=== PATIENT | female | born 1950 | race Caucasian/White ===

== ENCOUNTER → 2021-08-16 09:57 | Outpatient (BNVA) | payer OTHER, SELFPAY | PROVIDERS: Visit Provider Internal Medicine Cardiovascular Disease | DX: I10 Essential (primary) hypertension (principal); R00.0 Tachycardia, unspecified; F41.9 Anxiety disorder, unspecified | CPT/HCPCS: 93005 ==

== ENCOUNTER 2021-09-17 11:04 | Outpatient (REF) | payer OTHER, SELFPAY ==
[2021-09-17 11:21] LABS: MANUAL DIFF FLAG NO
[2021-09-17 11:57] LABS: Basophils Absolute Auto 0.1 X10*3/uL (0.0-0.2); Basophils Percent Auto 0.7 % (0-2); Eosinophils Percent Auto 0.2 % (0-4); Hematocrit 45.3 % (37.0-47.0); Hemoglobin 14.8 g/dl (12.0-16.0); Imm Gran Abs Auto 0.03 X10*3/uL (0.00-0.03); Imm Gran Pct Auto 0.4 % (0.0-0.4); Lymphocytes Absolute Auto 1.4 X10*3/uL (1.2-4.9); Lymphocytes Percent Auto 17.2 % (20-40); Mean Corpuscular HGB Conc 32.7 g/dl (31.0-35.0); Mean Corpuscular Hemoglobin 31.8 pg (27.0-33.0); Mean Corpuscular Volume 97.2 fL (80.0-98.0); Monocytes Absolute Auto 0.5 X10*3/uL (0.1-1.2); Monocytes Percent Auto 5.8 % (2-11); Neutrophils Absolute Auto 6.2 x10*3/uL (2.0-8.3); Neutrophils Percent Auto 75.7 % (45-73); Platelet Count 283 X10*3/uL (160-400); Red Blood Count 4.66 X10*6/uL (4.20-5.50); Red Cell Distribution Width 12.9 % (11.0-16.0); White Blood Count 8.2 X10*3/uL (4.8-10.8)
[2021-09-17 12:38] LABS: Erythrocyte Sedimentation Rate 14 MM/HR (0-20)
[2021-09-19 17:01] LABS: IgA 227 mg/dL (70-320); IgG 952 mg/dL (600-1540); IgM 65 mg/dL (50-300)
[2021-09-24 11:16] LABS: Asperg fumigatus Precip Abs NEGATIVE (NEGATIVE); Micropoly faeni Abs NEGATIVE (NEGATIVE); Pigeon serum Abs NEGATIVE (NEGATIVE); Saccharo pora viridis Abs NEGATIVE (NEGATIVE); Thermo candidus Abs NEGATIVE (NEGATIVE); Thermoa vulgaris #1 NEGATIVE (NEGATIVE)
== END 2021-09-17 11:05 | disposition home or self-care (01) ==
LOC: HO.LAB 11:04
PROVIDERS: PCP Internal Medicine; Visit Provider Hospitalist
DX: J47.9 Bronchiectasis, uncomplicated (principal); R91.1 Solitary pulmonary nodule; R91.8 Other nonspecific abnormal finding of lung field
CPT/HCPCS: 36415; 82784; 82785; 85025; 85652; 86003; 86331; 86606; 86609

== ENCOUNTER 2022-01-04 12:50 | Outpatient (REF) | payer OTHER, SELFPAY ==
--- NOTE | ~2022-01-04 | CT_ITS ---
EXAMINATION: CT CHEST WITHOUT CONTRAST CLINICAL INFORMATION: Solitary pulmonary nodule. COMPARISON: None TECHNIQUE: Multidetector volumetric CT imaging of the chest was done. Axial MIP volume rendering provided. Sagittal and coronal reformatted images were obtained. This CT examination was performed using dose optimization techniques as appropriate, variously including the following: *Automated exposure control *Adjustment of mA and/or kV according to patient size (this includes techniques or standardized protocols for targeted exams where dose is matched to indication/reason for exam; i.e. extremities or head) *Use of iterative reconstruction technique DLP: 211 mGy-cm FINDINGS: LUNGS: The left hemidiaphragm is elevated. A tiny calcified granuloma is present right upper lobe (8:157). No suspicious lung masses are seen. There are some minimal areas of mucosal impaction within bronchi (for example 8:221). Left basilar scarring/atelectasis is present. MEDIASTINUM: The mediastinum is unremarkable. CORONARY ARTERY CALCIFICATION: Minimal coronary calcification is present. PLEURA: There is no pleural effusion. No pleural mass or thickening. AXILLA: No lymphadenopathy. UPPER ABDOMEN: Prior gastric surgery/gastric bypass with gastrojejunostomy. Status post-cholecystectomy. OSSEOUS STRUCTURES: Biconvex thoracolumbar scoliosis with degenerative changes. CT/CT chest wo IV con IMPRESSION: No suspicious lung masses are seen. There is a tiny calcified granuloma present. Other incidental findings, as described above. Fleischner guidelines were followed.
== END 2022-01-04 12:51 | disposition home or self-care (01) ==
LOC: HO.CT 12:50
PROVIDERS: Visit Provider Hospitalist
DX: C50.919 Malignant neoplasm of unspecified site of unspecified female breast (principal); R91.1 Solitary pulmonary nodule
CPT/HCPCS: 71250

== ENCOUNTER → 2022-01-23 09:35 | Outpatient (BNVA) | payer OTHER, SELFPAY | PROVIDERS: PCP Internal Medicine; Visit Provider Internal Medicine Cardiovascular Disease | DX: R00.0 Tachycardia, unspecified (principal); I10 Essential (primary) hypertension; R06.02 Shortness of breath; C50.911 Malignant neoplasm of unspecified site of right female breast; Z92.3 Personal history of irradiation; Z79.890 Hormone replacement therapy | CPT/HCPCS: 93005 ==

== ENCOUNTER → 2022-02-05 07:31 | Outpatient (REF) | payer OTHER, SELFPAY ==
--- NOTE | 2022-02-05 07:35 | HM_ITS ---
Conclusion: 1. Patient was monitored for total period of 3 days 2. Baseline was normal sinus rhythm with average heart rate of 94 beats per minute 3. No significant pauses or bradycardia noted 4. Total of 821 PVCs accounting for 0.21% total beats account for occasional PVCs 5. Patient reported events correlated with sinus rhythm MTDD
== END ==
LOC: HO.CARD 07:31
PROVIDERS: Visit Provider Internal Medicine Cardiovascular Disease
DX: R00.0 Tachycardia, unspecified (principal)
CPT/HCPCS: 93242

== ENCOUNTER → 2022-07-05 13:31 | Outpatient (BNVA) | payer OTHER, SELFPAY | PROVIDERS: PCP Hospitalist; Referring Provider Internal Medicine; Visit Provider Nurse Practitioner Family | DX: Z13.89 Encounter for screening for other disorder (principal) ==

== ENCOUNTER → 2022-07-24 10:43 | Outpatient (REF) | payer OTHER, SELFPAY ==
--- NOTE | 2022-07-24 10:46 | CA_ITS ---
Transthoracic Echocardiogram Patient (Last, First, Middle): Chela Garza, Gender: Female Date of : 1950 Age: 71 Procedure Date: 07/24/2022 Procedure Type: Transthoracic Echocardiogram Location: OP Height: 154.94 cm Weight: 93.9 kg BSA: 1.92 m2 Heart Rate: 93 bpm BP: 165 / 80 mmHg Rating Officer: KATI Referring MD: Candi Rock CAFE SITE ATTENDANT-C Symptoms: R00.0 - Tachycardia, unspecified Study Quality: Technically Difficult Conclusions: - The left ventricular systolic function is normal. The calculated ejection fraction is 69% by biplane method. - No obvious valvular pathology seen on this study. Findings Procedure Information Contrast agent, definity, is being given per protocol without apparent complications. Left Ventricle Normal left ventricular cavity size. The left ventricular systolic function is normal. The calculated ejection fraction is 69% by biplane method. There is no evidence of regional wall motion abnormalities. Diastolic function is normal for age. There is mild septal asymmetric hypertrophy. Right Ventricle Normal right ventricular cavity size and systolic function. Atria Both atria are normal in size. Aortic Valve The aortic valve was not well visualized. There is mild calcification of the aortic valve. There is no aortic valve stenosis. There is no aortic valve regurgitation. Mitral Valve The mitral valve was not well visualized. There is mild mitral annular calcification. There is no mitral valve regurgitation. There is no mitral valve stenosis. Pulmonic Valve The pulmonic valve is likely normal. Tricuspid Valve There is trace tricuspid valve regurgitation. There is no evidence of pulmonary hypertension. Great Vessels The asc aorta is normal in size. Venous The inferior vena cava is normal in size and collapses less than 50% with inspiration. Pericardium/Pleural There is no evidence of pericardial effusion. Prior Study Comparison No prior study available for comparison. Recommendations, Care & Conclusions No obvious valvular pathology seen on this study. Measurements 2D Linear Measurements IVSd: 1.13 0.6-0.9/0.6-1.0 cm LVIDd: 3.62 3.9-5.3/4.2-5.9 cm LVIDd Index: 1.89 2.4-3.2/2.2-3.1 cm/m2 LVIDs: 3.02 2.0-3.6 cm LVPWd: 0.87 0.7-1.1 cm LA Diam: 2.20 2.7-3.8/3.0-4.0 cm LAIDs Index: 1.15 1.5-2.3 cm/m2 LV Mass: 134.97 67-162/88-224 g LV Mass Index: 70.30 43-95/49-115 g/m2 LVOT Diam: 1.90 3.0+(-)1.3 cm 2D Systolic Function EF 4C: 65.60 >55% EF 2C: 71.50 >55% EF BiP: 69.40 >55% Mitral Valve MV Pk E: 0.79 MV PK A: 1.02 MV Decel Time: 218.00 E/A: 0.80 E'Lateral: 8.81 E'Medial: 6.85 E/E' Med: 11.50 E/E' Lat: 8.90 PHT: 64.00 MVA PHT: 3.44 Decel Clare: 3.61 Aortic Valve AoV Pk Troy: 1.51 AoV Pk Grad: 9.00 LVOT LVOT Pk Troy: 0.89 LVOT Mn Troy: 0.63 LVOT VTI: 0.18 LVOT Pk Grad: 3.00 LVOT Mn Grad: 2.00 LVOT Diam: 1.90 LVOT Area: 2.84 Diastolic Function MV Pk E: 0.79 MV Pk A: 1.02 E/A: 0.80 E'Medial: 6.85 E/E' Med: 11.50 E' Laterial: 8.81 E/E' Lat: 8.90 Right Ventricle TAPSE (mm): 22.60 TVS' Troy: 13.10 Tricuspid Valve TR Pk Troy: 1.47 TR Pk Grad: 9.00 RA Press: 8.00 RVSP: 17.00 Great Vessels Aorta Sinus of Valsalva: 3.40 2.0-3.5 cm Ao Asc: 2.60 2.1-3.4 cm Pulmonary Valve PV Pk Troy: 0.95 Peak PV Grad: 4.00 Updated in Other Vendor System with Status of Final Haroon Bernstein MD electronically signed on 07/24/2022 4:49:21 PM with status of Final
== END ==
LOC: HO.CARD 10:43
PROVIDERS: PCP Hospitalist; Visit Provider Nurse Practitioner Family
DX: R00.0 Tachycardia, unspecified (principal); I10 Essential (primary) hypertension
CPT/HCPCS: 93306; Q9957

== ENCOUNTER 2022-10-07 13:00 | Outpatient (AMB) | payer OTHER, SELFPAY ==
[2022-10-07 13:03] VITALS: BP 160/80; PULSE 104; BMI 39.6
--- NOTE | 2022-10-07 13:03 | A.OFFVIS_ITS ---
Intake Vital Signs 10/07/22 13:03 Height 5 ft 1 in Weight 209 lb 7.026 oz BMI 39.6 BP 160/80 H Blood Pressure Location Lt brachial Position Sitting Pulse 104 H Intake Visit Reasons: 3-4 month follow up after echo Intake Note: 3- 4 month f/u after echo Motor Mechanic Required: No Allergies adhesive Allergy (Severe, Verified 10/07/22 13:12) Rash nystatin Allergy (Intermediate, Verified 10/07/22 13:12) Hives sulfide Allergy (Intermediate, Uncoded 06/26/22 10:23) Hives Medication List - Last Reconciled 10/07/22 by Candi Rock, HUMANITIES COORDINATOR-C cholecalciferol (vitamin D3) 250 mcg PO DAILY cyanocobalamin (vitamin B-12) 1,000 mcg PO DAILY diltiazem HCl 300 mg PO DAILY eplerenone 25 mg PO BID ibuprofen 600 mg PO Q8H PRN lactobacillus combination no.9 (Adult 50 Plus Probiotic) 4,000 mmu cells PO DAILY letrozole 2.5 mg PO DAILY venlafaxine ER 75 mg PO DAILY HPI 3-4 month follow up after echo HPI Details Chela is 71-year-old female past medical history of hypertension, sinus tachycardia who presents for follow-up after recent medication change and echocardiogram.. Today she reports that she has been feeling very well since her last visit. She noticed an improvement in her heart rate with the increased dose of diltiazem. She was able to wean off the clonidine. She tells me that her home blood pressures are normal range. She uses a what device that checks her blood pressure. She is no longer having heart rates up into the 140s. She denies issues with heart palpitations, no chest discomfort, shortness of breath. No PND, orthopnea, edema. No dizziness, presyncope, syncope, falls. She has some issues with chronic low back pain and had 1 steroid injection recently and will be having another in 2 weeks. is present. Has upcoming visit with her PCP. COUNTS INCLUDE 234 BEDS AT THE [facility] Medical History Breast cancer Pulmonary nodule Surgical History History of knee replacement procedure of left knee History of knee replacement procedure of right knee S/P lumpectomy, right breast Family History Father CVA (cerebral vascular accident) HTN (hypertension) Gout Scoliosis Mother CVA (cerebral vascular accident) Cancer Colon cancer CHF (congestive heart failure) COPD (chronic obstructive pulmonary disease) HTN (hypertension) Migraine Anxiety Depression Son Carotid artery aneurysm SMA (spinal muscular atrophy) Anterior horn cell disease Social History Household Members: Spouse Housing: Apartment Alcohol intake: current Alcohol intake frequency: a few times a week Alcohol type: wine Patient Tobacco Use Status: Never used Tobacco Review of Systems Const All systems reviewed & are unremarkable except as noted in HPI and below ENT Reports dizziness Card Denies chest pain, Denies chest pain at rest, Denies chest pain with activity, Denies rapid heart rate, Denies pedal edema, Denies edema, Denies leg edema, Denies lightheadedness, Denies palpitations, Denies dyspnea, Denies dyspnea on exertion and Denies orthopnea Resp Denies cough, Denies dyspnea and Denies dyspnea on exertion GI Denies hematochezia and Denies change in stool character Musc Denies abnormal gait, Reports limited range of motion, Reports muscle cramps, Denies muscle weakness, Denies numbness, Denies radiating pain into limb, Denies stiffness and Denies tingling Neuro Denies abnormal gait, Reports dizziness, Denies numbness and Denies tingling Endo Denies palpitations Physical Exam Vital Signs: Last Vital Signs Pulse 104 H 10/07/22 13:03 BP 160/80 H 10/07/22 13:03 BMI result Body Mass Index 39.6 Const General: cooperative, healthy appearing, comfortable and no acute distress Orientation/consciousness: patient oriented x3 Neck Neck: Yes normal visual inspection and Yes no JVD Resp Effort & Inspection: normal respiratory effort Auscultation: clear to auscultation bilaterally, no crackles, no rales, no rhonchi and no wheezes Cardio Jugular venous distension: no JVD Rate: tachycardic Rhythm: regular rhythm Heart sounds: S1 normal heart sound present, S2 normal heart sound present, no gallops, no murmurs and no rubs Peripheral pulses: Peripheral pulses 2+ throughout Neuro General: patient oriented x3 Extrem General: Yes normal to inspection Psych Appearance: grossly normal Mental Status: mental status grossly normal Speech and movement: Normal speech and movement present Office Procedures EKG Details: Today, read by me, sinus tachycardia, no acute ST or T-wave abnormalities, rate 104, QTC 462 millisecond [id number], Complete Assessment & Plan Assessment & Plan (1) Essential hypertension: Code(s): I10 - Essential (primary) hypertension Plan: History of hypertension. Currently treated with Diltiazem and Eplerenone. She had been on hydrochlorothiazide in the past and had issues with hypokalemia. She had been on clonidine and recently weaned off slowly. On last visit her diltiazem dose was increased to help with blood pressure and heart rate control. Overall she tells me she is feeling much better and is not having heart rates up into the 140s. Blood pressure initially elevated at 1 60/80 and was 176/96 on recheck. She tells me she checks her blood pressure at home routinely and sometimes it is high and sometimes it is normal. She will likely need alternate antihypertensive agent. No recent blood work to review on her. Will hold off on the addition of medication at present and obtain labs including CMP. Once labs available will determine best antihypertensive agent. She is agreeable to this plan. Reviewed low-salt diet, light activity as tolerated. She performs I high stress job which can contribute to elevated blood pressure readings. She is also experiencing low back discomfort and is in the process of undergoing steroid injections. Cardiology office phos visit in 6 months, sooner if needed. Will plan to have her in prior to that time for blood pressure checks. (2) Sinus tachycardia: Code(s): R00.0 - Tachycardia, unspecified Plan: History of sinus tachycardia, likely inappropriate sinus tach. Notes indicate prior echocardiogram at [facility] 02/2021 was normal. She is on diltiazem for heart rate control as well as blood pressure. Holter monitor done 02/05/2022 for 3 days showed sinus rhythm with average heart rate 94 with occasional PVCs. Echocardiogram done 07/24/2022 showed EF 69%, no regional wall motion abnormality or valve abnormality. EKG today showing sinus tach, rate 104 which she is very pleased with. Continue current diltiazem dose. Orders: Orders Comprehensive Met. Panel Today I10 - Essential (primary) hypertension Coding Level of Care Code Est Pt Level 4 (41011) Diagnoses Essential hypertension I10 Sinus tachycardia R00.0 CPT Codes EKG - CPT: 99593-[id number], Complete ([id number]) Time Spent (min) 28 Comment Chart review, documentation, interview, assessment
== END 2022-10-07 13:39 | disposition home or self-care (01) ==
PROVIDERS: Visit Provider Nurse Practitioner Family
DX: I10 Essential (primary) hypertension (principal); R00.0 Tachycardia, unspecified
CPT/HCPCS: 93010; 99214

== ENCOUNTER → 2022-10-07 13:00 | Outpatient (BNVA) | payer OTHER, SELFPAY | PROVIDERS: Visit Provider Nurse Practitioner Family | DX: I10 Essential (primary) hypertension (principal); R00.0 Tachycardia, unspecified | CPT/HCPCS: 93005 ==

== ENCOUNTER 2022-10-21 08:30 | Outpatient (REF) | payer OTHER, SELFPAY ==
[2022-10-21 09:28] LABS: Alanine Aminotransferase 18 U/L (0-31); Albumin Level 3.9 g/dL (3.5-5.0); Alkaline Phosphatase 59 U/L (39-117); Anion Gap 16 (12-20); Aspartate Amino Transferase 19 U/L (5-31); Bilirubin Total 0.6 mg/dL (0.0-1.0); Blood Urea Nitrogen 8 mg/dL (9-16); Calcium 9.7 mg/dL (8.4-10.2); Carbon Dioxide 25 mmol/L (22-29); Chloride 101 mmol/L (96-108); Estimated Glomerular Filt Rate > 60; Glucose Random 112 mg/dL (60-115); Potassium 3.8 mmol/L (3.3-5.1); Sodium 138 mmol/L (135-145); Total Protein 7.1 g/dL (6.5-8.0)
[2022-10-21 09:50] LABS: Vitamin B12 240 pg/mL (200-900)
[2022-10-25 14:54] LABS: Vitamin D 25-OH, D2 <4 ng/mL; Vitamin D 25-OH, D3 36 ng/mL; Vitamin D 25-OH, Total 36 ng/mL (30-100)
[2022-10-29 19:43] LABS: Parathyroid Hormone Related Pr 38 pg/mL (11-20)
== END 2022-10-21 08:31 | disposition home or self-care (01) ==
LOC: HO.LAB 08:30
PROVIDERS: PCP Hospitalist; Visit Provider Nurse Practitioner Family
DX: I10 Essential (primary) hypertension (principal); M85.80 Other specified disorders of bone density and structure, unspecified site; C50.919 Malignant neoplasm of unspecified site of unspecified female breast; Z98.84 Bariatric surgery status
CPT/HCPCS: 36415; 80053; 82306; 82310; 82607; 83519

== ENCOUNTER 2022-11-28 11:12 | Outpatient (REF) | payer OTHER, SELFPAY ==
[2022-11-28 12:38] LABS: Anion Gap 15 (12-20); Blood Urea Nitrogen 14 mg/dL (9-16); Calcium 9.9 mg/dL (8.4-10.2); Carbon Dioxide 27 mmol/L (22-29); Chloride 104 mmol/L (96-108); Estimated Glomerular Filt Rate > 60; Glucose Random 92 mg/dL (60-115); Potassium 4.4 mmol/L (3.3-5.1); Sodium 142 mmol/L (135-145)
== END 2022-11-28 11:13 | disposition home or self-care (01) ==
LOC: HO.LAB 11:12
PROVIDERS: PCP Hospitalist; Visit Provider Nurse Practitioner Family
DX: I10 Essential (primary) hypertension (principal)
CPT/HCPCS: 36415; 80048

== ENCOUNTER 2022-12-18 09:47 | Outpatient (REF) | payer OTHER, SELFPAY ==
--- NOTE | ~2022-12-18 | CT_ITS ---
EXAMINATION: CT CHEST WITHOUT CONTRAST CLINICAL INFORMATION: Solitary pulmonary nodule. COMPARISON: CT chest dated 12/27/2021. TECHNIQUE: Multidetector volumetric CT imaging of the chest was done. Axial MIP volume rendering provided. Sagittal and coronal reformatted images were obtained. This CT examination was performed using dose optimization techniques as appropriate, variously including the following: *Automated exposure control *Adjustment of mA and/or kV according to patient size (this includes techniques or standardized protocols for targeted exams where dose is matched to indication/reason for exam; i.e. extremities or head) *Use of iterative reconstruction technique DLP: 196 mGy-cm FINDINGS: RESIDENTIAL BUILDING INSPECTOR: There are scoliotic changes. There is an undulating appearance of the diaphragms. LUNGS: At the posterior right apex (6:122), a benign, calcified pleural-based granuloma is seen. Within the posterior segment of the right upper lobe (6:139), a small benign, calcified granuloma is seen. Within the posterior basal segment of the left lower lobe (6:270), a 4 mm noncalcified nodule is seen. There is an azygos fissure. There are bibasilar foci of minor scar/subsegmental atelectasis without associated focal airway obstruction. No generalized increase is seen in peripheral interlobular septal markings. There is no significant bleb or bullous formation. No generalized small airway thickening is seen. The central airways appear patent. MEDIASTINUM: The mediastinum is normal. CORONARY ARTERY CALCIFICATION: None visualized on this study. PLEURA: There is no pleural effusion. No pleural mass or thickening. AXILLA: No lymphadenopathy. UPPER ABDOMEN: The adrenal glands are unremarkable. The gallbladder is surgically absent. There are gastric surgical sylwia. OSSEOUS STRUCTURES: There are marked scoliotic changes of the spine. There is multi-level thoracic degenerative disc disease, spondylosis and Schmorl's node formation. No acute or aggressive osseous finding is seen. CT/CT chest wo IV con IMPRESSION: 1. A 4 mm noncalcified nodule is seen at the posterior basal segment of the right lower lobe. There are further small benign, calcified right upper lobe granulomas. Nodules are all stable from 01/04/2022. According to the UPDATED 2017 Fleischner Society recommendations, the advised follow-up imaging for solid nodules < 6 mm is: LOW RISK PATIENT: No routine follow-up. HIGH RISK PATIENT: Optional CT at 12 months. 2. There are bibasilar foci of minor scar/subsegmental atelectasis, without associated focal airway obstruction. 3. No thoracic lymphadenopathy or pleural effusion is seen. 4. There are marked scoliotic changes. Fleischner guidelines were followed.
== END 2022-12-18 09:48 | disposition home or self-care (01) ==
LOC: HO.CT 09:47
PROVIDERS: PCP Hospitalist; Visit Provider Hospitalist
DX: R91.1 Solitary pulmonary nodule (principal)
CPT/HCPCS: 71250

== ENCOUNTER 2023-01-09 15:24 | Outpatient (AMB) | payer OTHER, SELFPAY ==
[2023-01-09 15:27] VITALS: PULSE 93; O2SAT 94; BMI 39.1
--- NOTE | 2023-01-09 15:27 | A.OFFVIS_ITS ---
Intake Vital Signs 01/09/23 15:27 Height 5 ft 1 in Weight 207 lb BMI 39.1 Pulse 93 Pulse Source Pulse Oximeter Pulse Oximetry (%) 94 Oxygen Delivery Method Room Air Intake Visit Reasons: Pulmonary Nodule Associate Java Developer Required: No Allergies adhesive Allergy (Severe, Verified 01/09/23 15:28) Rash nystatin Allergy (Intermediate, Verified 01/09/23 15:28) Hives sulfide Allergy (Intermediate, Uncoded 01/09/23 15:28) Hives HPI HPI Comments History of Present Illness Details the patient is a 72-year-old woman with a known history of bronchiectasis in addition to breast cancer here for a follow-up visit. Apparently, the patient is having worsening respiratory symptoms including c ough and chest congestion. At the time she was evaluated in [place] demonstrating evidence of bronchiectasis. The patient was worked up for the bronchiectasis. Had a negative sweat test for cystic fibrosis per the patient. She was found to have home that was infested with mold. That was felt to be the contributing factor. The patient did move out of the home. She was treated with respiratory medications. Did her symptoms improve. Subsequently after that she did have some chest discomfort. She did undergo a CT scan of the chest demonstrating a pulmonary nodule. The patient did have a repeat CT scan in [place] as well back in April [address] scan of the chest demonstrating that the pulmonary nodules to present although slightly smaller based on their technique. As far as the patient's breast cancer she was diagnosed with local breast cancer of the right breast. She did undergo lumpectomy and also underwent radiation therapy. The patient was placed on hormonal therapy, letrozole. The patient has been tolerating medicine. She does follow closely with her oncologist. In view of her breast cancer and history of pulmonary nodules the patient should have a CT scan of the chest to further evaluate the pulmonary nodule. Will request that in the fall of 2021. If the patient develops any worsening symptoms prior to that she is to call the office we can look at that CT scan at an earlier time. From a respiratory status the patient does have a cough is intermittent. And currently is mild. She does have a rescue inhaler that she uses. She also has an Acapella valve that she finds very effective. She does not have a nebulizer and has not use any hypertonic saline. The patient does states that she has been doing very well from a respiratory status. But, in the spring of this year she started developing worsening cough and shortness of breath was using her respiratory medication more often. Now, she is feeling little better. We did review her last pulmonary function studies done in [place] demonstrating no obstructive nor restrictive ventilatory defects. The patient did have a slight decrease maximum voluntary ventilation which could be secondary to deconditioning. She also had a significantly low expiratory reserve volume likely foreign body habitus. Her diffusion capacity was within normal limits. 01/11/2022 the patient is here for pulmonary follow-up visit. The patient overall is doing well. Denies any sick cough or chest congestion. Fortunately have to go visit her home [place] that was affected by that her cane and does likely mold contamination. Therefore she needs to be very careful when going to that environment. In the meantime the patient did have a repeat CT scan of the chest demonstrating no significant worsening of any of the pulmonary nodules. She does have bronchiectatic changes noted. Will plan to follow-up CT scan in a year's time. Her blood work was all reassuring. She did have minimal allergies noted. Otherwise patient is without any other complaints. 01/09/2023 the patient is here for a pulmonary follow-up visit. Overall the patient has been doing well. She does complaint of dyspnea on exertion. Sometimes moderate in severity. She wishes she had a albuterol inhaler that she can use. We did talk about getting her a peak flow. I did going through the instructions on how to use it. She should use the peak flow while she is doing well and then subsequently which she has her up so she can measure her peak flow during those difficult times. And then at that point after that she can use her inhaler and then objectively measure her peak flow afterwards as well. The patient did have a CT scan of the chest that we personally reviewed. The patient has multiple calcified granulomas which are not concerning. She does have a 4 mm pulmonary nodule noncalcified on the left lung which appears to be unchanged from last year. Will go ahead and repeat the CT scan and another year to make sure there is to years of stable findings. She also has evidence of the bronchiectatic changes. She does have the Acapella valve that she can use as needed to clear secretions. At this point she does not much secretions. Will plan to repeat the CT scan next year and also perform pulmonary function studies. If her symptoms worsen though she is using her inhaler more often she can always call to get her PFTs done at an earlier time. [facility] Medical History (Updated 01/09/23 @ 23:16 by Sanket De León MD) Dyspnea Breast cancer Pulmonary nodule Surgical History History of knee replacement procedure of right knee History of knee replacement procedure of left knee S/P lumpectomy, right breast Family History Father CVA (cerebral vascular accident) HTN (hypertension) Gout Scoliosis Mother CVA (cerebral vascular accident) Cancer Colon cancer CHF (congestive heart failure) COPD (chronic obstructive pulmonary disease) HTN (hypertension) Migraine Anxiety Depression Son Carotid artery aneurysm SMA (spinal muscular atrophy) Anterior horn cell disease Social History Household Members: Spouse Housing: Apartment Alcohol intake: current Alcohol intake frequency: a few times a week Alcohol type: wine Patient Tobacco Use Status: Never used Tobacco Review of Systems Const Denies fever(s) Eyes Denies loss of vision ENT Denies dizziness and Denies hearing loss Card Denies chest pain and Reports dyspnea on exertion Resp Denies cough, Denies excessive phlegm production, Reports dyspnea on exertion and Denies wheezing GI Denies abdominal pain Denies hematuria, Denies urinary frequency and Denies dysuria Musc Denies arthralgias and Denies muscle weakness Skin/Breast Denies nail changes and Denies rash Neuro Denies Abnormal speech present, Denies dizziness, Denies loss of vision and Denies memory loss Psych Denies depression and Denies memory loss Aller/Immun Reports seasonal rhinorrhea and Denies wheezing Physical Exam Vital Signs: Last Vital Signs Pulse 93 01/09/23 15:27 Pulse Ox 94 01/09/23 15:27 Oxygen Delivery Method Room Air 01/09/23 15:27 BMI result Body Mass Index 39.1 Const General: comfortable HEENT Head: Yes normocephalic Neck Neck: Yes supple Chest Chest palpation & inspection: normal inspection of the chest Resp Effort & Inspection: normal respiratory effort Auscultation: clear to auscultation bilaterally Cardio Rate: regular rate Rhythm: regular rhythm Heart sounds: S1 normal heart sound present and S2 normal heart sound present GI Palpation (GI): Soft to palpation Skin General skin exam: no rashes or lesions noted Neuro Speech: No Abnormal speech present Extrem General: Yes no clubbing, cyanosis or edema Assessment & Plan Assessment & Plan (1) Pulmonary nodule: Code(s): R91.1 - Solitary pulmonary nodule (2) Bronchiectasis: Code(s): J47.9 - Bronchiectasis, uncomplicated Qualifiers: Bronchiectasis type: uncomplicated Qualified Code(s): J47.9 - Bronchiectasis, uncomplicated (3) Breast cancer: Code(s): C50.919 - Malignant neoplasm of unspecified site of unspecified female breast Qualifiers: Breast location: unspecified site of breast Estrogen receptor status: unspecified Laterality: right Patient sex: female Qualified Code(s): C50.911 - Malignant neoplasm of unspecified site of right female breast (4) Dyspnea: Code(s): R06.00 - Dyspnea, unspecified Qualifiers: Dyspnea type: dyspnea on exertion Qualified Code(s): R06.09 - Other forms of dyspnea Plan continue CPT with Acapella valve peak flow short-acting beta agonist as needed repeat CT scan of the chest in 12 months PFTs in 1 yr follow-up with Pulmonary in [address]: [address] chest wo IV con 364 Days R91.1 - Solitary pulmonary nodule CT chest wo IV con 364 Days R91.1 - Solitary pulmonary nodule PFT pulmonary function test 364 Days R91.1 - Solitary pulmonary nodule Coding Level of Care Code Est Pt Level 4 (10256) Diagnoses Pulmonary nodule R91.1 Bronchiectasis without complication J47.9 Bronchiectasis type: uncomplicated Malignant neoplasm of right female breast, unspecified estrogen receptor status, unspecified site of breast C50.911 Breast location: unspecified site of breast Estrogen receptor status: unspecified Laterality: right Patient sex: female Dyspnea on exertion R06.09 Dyspnea type: dyspnea on exertion Time Spent (min) 17
== END 2023-01-09 15:43 | disposition home or self-care (01) ==
LOC: HO.HPS 15:24
PROVIDERS: PCP Hospitalist; Visit Provider Hospitalist
DX: R91.1 Solitary pulmonary nodule (principal); J47.9 Bronchiectasis, uncomplicated; C50.911 Malignant neoplasm of unspecified site of right female breast; R06.09 Other forms of dyspnea
CPT/HCPCS: 99214

== ENCOUNTER → 2023-01-09 15:24 | Outpatient (BNVA) | payer OTHER, SELFPAY | PROVIDERS: PCP Hospitalist; Visit Provider Hospitalist ==

== ENCOUNTER 2023-01-29 12:49 | Outpatient (AMB) | payer OTHER, SELFPAY ==
[2023-01-29 13:03] VITALS: BP 134/74; PULSE 116; RESP 13; TEMP 36.6; O2SAT 98; BMI 39.7
--- NOTE | 2023-01-29 13:03 | MHC.PC.OV ---
Vital Signs 01/29/23 13:03 Height 5 ft 1 in Weight 210 lb BMI 39.7 BP 134/74 Blood Pressure Location Lt brachial Position Sitting Respiration 13 Pulse 116 H Pulse Source Pulse Oximeter Temp 97.8 F Temp Source Temporal Artery Scan Pulse Oximetry (%) 98 Oxygen Delivery Method Room Air Intake Visit Reasons: Trans of care, hypertension Intake Note: Patient states that shes been having some discoloration in her skin and is not sure what is causing. Patient would like referral for OBGYN due to vaginal pressure and to check vaginal floor. Patient would like a urinalysis due to not having one in over a year and would also look full panel of blood work. Patient would also like parathyroid checked. Blade Bender Furnace Tender Required: No Accompanied by: Self / Same As Patient Allergies adhesive Allergy (Severe, Verified 01/29/23 13:12) Rash nystatin Allergy (Intermediate, Verified 01/29/23 13:12) Hives sulfide Allergy (Intermediate, Uncoded 01/09/23 15:28) Hives Tobacco use date assessed: 06/26/22 Fall risk assessment: No Falls in past year Last assessed Fall Risk: 01/29/23 Dental Screening Dental Screen Date: 01/29/23 Did you have a dental visit in the last 12 months?: Yes Did you have a dental problem in the last 6 months where you did not have access to dental care?: No Was dental information given to patient?: Patient has dentist HPI HPI Comments History of Present Illness Details 72-year-old female presents for transfer of care Her former PCP was LILIA who is no longer with the practice She has past medical history significant for hypertension, bronchiectasis, solitary pulmonary nodule, osteopenia, gastric bypass, neurofibromatosis, scoliosis, chronic LBP, vitamin D deficiency, elevated PTH, and anxiety. She is on Letrozole for history of right breast cancer She had CMP done 2 months ago and CBC over a year ago; unremarkable findings. She notes that her last lipid panel blood work was over a year ago She admits to taking her medications as prescribed She reports vaginal pressure for the past 2 months. Denies bloody urine, burning, pain, frequency, or discharge with urination. Denies urinary incontinence. She notes that the last time she was evaluated by an thread cutter was 17 years ago. She reports h/o tubal ligation. No hysterectomy or other gynecological procedure She reports significant improvement of carpel tunnel syndrome and LBP following cortisone injection by ortho in September and October respectively She notes that she has been making healthy dietary choices and walking for exercise and has gradually been losing weight She states that her gait is unsteady at baseline She is followed by [facility] cardiology and pulmonology She is followed by Dermatology for annual cancer screening and [place] [facility]/s[facility] Medical History Levoscoliosis Osteoarthritis Dyspnea Breast cancer Pulmonary nodule Surgical History History of knee replacement procedure of right knee History of knee replacement procedure of left knee S/P lumpectomy, right breast Family History Father CVA (cerebral vascular accident) HTN (hypertension) Gout Scoliosis Mother CVA (cerebral vascular accident) Cancer Colon cancer CHF (congestive heart failure) COPD (chronic obstructive pulmonary disease) HTN (hypertension) Migraine Anxiety Depression Son Carotid artery aneurysm SMA (spinal muscular atrophy) Anterior horn cell disease Household Members: Spouse Housing: Apartment Alcohol intake: current Alcohol intake frequency: a few times a week Alcohol type: wine Patient Tobacco Use Status: Never used Tobacco e-Cigarette/Vaping Use: Never Used service: No Current occupational status: retired Cognitive needs: No Hearing needs: No Vision needs: No Questionnaire PHQ-9 Over the last 2 weeks, how often have you been bothered by any of the following problems? 1. Little interest or pleasure in doing things: not at all 2. Feeling down, depressed, or hopeless: not at all 3. Trouble falling or staying asleep, or sleeping too much: more than half the days 4. Feeling tired or having little energy: several days 5. Poor appetite or overeating: not at all 6. Feeling bad about yourself - or that you are a failure or have let yourself or your family down: not at all 7. Trouble concentrating on things, such as reading the newspaper or watching television: not at all 8. Moving or speaking so slowly that other people could have noticed. Or the opposite - being so fidgety or restless that you have been moving around a lot more than usual: not at all 9. Thoughts that you would be better off or of hurting yourself in some way: not at all Total score: 3 Depression Screening Interpretation: Negative Depression Screening Done: Yes 21113 - PHQ-9 Billing: Yes Source: Developed by Drs. Chinmay Pedroza, Brigid Langston, Lucas Feng and colleagues, with an educational chris from [email or web address]. Thrive Questionnaire Date Thrive assessed: 01/29/23 I am a: Patient What is your living situation today?: I have a steady place to live Within the past 12 months, did the food you bought not last and you didn't have the money to get more?: Sometimes True Within the past 12 months, did you worry whether your food would run out before you got money to buy more?: Sometimes True Do you have trouble paying for medicines?: No Do you have trouble getting transportation to medical appointments?: No Do you have trouble paying your heating and electricity bill?: No Do you have trouble taking care of your child, family member or friend?: No Do you have trouble with day-to-day activities such as bathing, preparing meals, shopping, managing finances, etc.?: No Are you currently unemployed and looking for a job?: No Are you interested in more education?: No Please select the resources that you would like help with: None AUDIT C Alcohol Use Questionnaire (AUDIT-C) 1. How often do you have a drink containing alcohol?: 2-3 times a week 2. How many drinks containing alcohol do you have on a typical day when you are drinking?: 1 or 2 3. How often do you have six or more drinks on one occasion?: Never Total Score: 3 DAVID-7 AMB Questionnaire DAVID-7 Date DAVID - 7 assessed: 01/29/23 Feeling nervous, anxious, or on edge: 1 = Several days Not being able to stop or control worryin = Not at all Worrying too much about different things: 0 = Not at all Trouble relaxin = Several days Being so restless that it is hard to sit still: 0 = Not at all Becoming easily annoyed or irritable: 0 = Not at all Feeling afraid as if something awful might happen: 0 = Not at all Total DAVID-7 score (0-4 normal; 5-9 mild; 10-14 moderate; 15-21 severe): 2 Source: Developed by Drs. Chinmay Pedroza, Brigid Langston, Lucas Feng and colleagues, with an educational chris from [email or web address]. DAVID-7 Assessment Billing DAVID-7 Assessment Tool: DAVID-7 Assessment 64461 ACT Questionnaire In the past 4 weeks, how much of the time did your asthma keep you from getting as much done at work, school or at home?: A little of the time During the past 4 weeks, how often have you had shortness of breath?: 1-2 times a week During the past 4 weeks, how often did your asthma symptoms wake you up at night or earlier than usual in the morning?: Not at all During the past 4 weeks, how often have you had to use your rescue inhaler or nebulizer medication?: Once a week or less How would you rate your asthma control during the past 4 weeks?: Well controlled ACT Interpretation: Positive Score: 21 Review of Systems Const Details: Const Denies chills, Denies fatigue, Denies fever(s), Denies headache(s) and Denies weakness ENT Denies dizziness and Denies headache(s) Card Denies chest pain, Denies lightheadedness, Denies dyspnea and Denies other (Palpitations) Resp Denies cough, Denies dyspnea, Denies wheezing and Denies other ( shortness of breath) GI Denies abdominal pain, Denies melena, Denies hematochezia, Denies change in bowel habits, Denies dyspepsia and Denies nausea Denies hematuria and Denies dysuria Musc Denies abnormal gait, Denies myalgias, Denies arthralgias, Denies numbness and Denies tingling Skin/Breast Denies rash, Denies unusual bruising and Denies wounds Neuro Denies abnormal gait, Denies dizziness, Denies headache(s), Denies memory loss, Denies numbness, Denies Sensory deficit (Neuro), Denies tingling and Denies weakness Psych Denies anxiety, Denies depression, Denies memory loss Endo Denies cold intolerance, Denies fatigue, Denies heat intolerance, Denies polydipsia and Denies polyuria Aller/Immun Denies wheezing Physical exam (Primary Care) Vital Signs: Last Vital Signs Temp 97.8 F 01/29/23 13:03 Pulse 116 H 01/29/23 13:03 Resp 13 01/29/23 13:03 BP 134/74 01/29/23 13:03 Pulse Ox 98 01/29/23 13:03 Oxygen Delivery Method Room Air 01/29/23 13:03 BMI result Body Mass Index 39.7 Tobacco/Smoking Status: Tobacco use Status Tobacco use date assessed 06/26/22 01/29/23 13:14 Patient Tobacco Use Status Never used Tobacco 01/29/23 13:14 e-Cigarette/Vaping Use Never Used 01/29/23 13:14 PHQ-9: PHQ-9 Score PHQ-9: Total score 3 01/29/23 13:22 Depression Screening Interpretation: Negative Thrive Assessment: Date of Thrive Assessment Date Thrive assessed 01/29/23 01/29/23 13:22 Const Other: General: no acute distress and well developed Nutritional Appearance: well nourished Orientation/consciousness: patient oriented x3 HENMT Head: Yes normocephalic and Yes atraumatic Eyes General: appearance normal, both eyes and all related structures Pupils: Equal, round and reactive pupils present EOM: EOMs intact bilaterally Resp Effort & Inspection: normal respiratory effort Auscultation: clear to auscultation bilaterally Cardio Rate: regular rate Rhythm: regular rhythm Heart sounds: S1 normal heart sound present, S2 normal heart sound present, no gallops, no murmurs and no rubs GI Palpation (GI): No Abdominal aortic bruit present, Soft to palpation, nontender, No hepatosplenomegaly present and No Rebound tenderness present Auscultation: normal bowel sounds General: Yes no CVA tenderness Back/Spine/Pelvis Back: no CVA tenderness Cervical Spine: cervical ROM normal and No Cervical spine tenderness Thoracic/Lumbar Spine: thoraco-lumbar ROM normal, No pain with thoraco-lumbar ROM, No thoracic spinal tenderness and No lumbar spinal tenderness Extrem General: Yes normal to inspection, No edema and No calf tenderness Skin General: warm and dry. Normal skin color. Normal skin turgor Lesions: no lesions Rashes: no rashes Trauma: no lacerations or abrasions Wounds: no wounds Nails: normal Neuro General: patient oriented x3, gait normal and no focal neuro deficit Cranial nerves: Yes Equal, round and reactive pupils present Cognition (Neuro): normal cognition Gait exam (Neuro): Normal gait present Sensory Exam: No Sensory deficit (Neuro) Psych Appearance: grossly normal Affect: normal affect Attitude: cooperative Thought process: Normal thought process present Assessment and Plan Assessment & Plan (1) Essential hypertension: Code(s): I10 - Essential (primary) hypertension Plan: Blood pressure is 134/74, heart rate is 116 Increasing blood pressure and heart rate may be related to anxiety Continue with current treatment regimen Routine exercise encouraged Follow-up with cardiology as planned Will check lipid panel, CBC, and TSH levels. Advised to get blood work done before her next visit Return in 1 month for an extended physical exam or sooner with symptoms or concerns. Verbalized understanding and agreed with treatment plan (2) Anxiety: Code(s): F41.9 - Anxiety disorder, unspecified Plan: PHQ-9 and DAVID-7 scores are negative Reports control anxiety symptoms She notes she is on venlafaxine for vasomotor symptoms but also improves anxiety Continue to take venlafaxine as prescribed Routine exercise encouraged Follow-up with new or worsening symptoms Verbalized understanding and agreed with treatment plan (3) Elevated parathyroid hormone: Code(s): R79.89 - Other specified abnormal findings of blood chemistry Plan: As above (4) Vaginal symptom: Code(s): N94.9 - Unspecified condition associated with female genital organs and menstrual cycle Plan: Reports vaginal pressure for the past 2 months. Denies bloody urine, burning, pain, frequency, or discharge with urination. Denies urinary incontinence She has not been evaluated by FINANCIAL SERVICES PROFESSIONAL in the past 17 years Will check urinalysis Referred to [facility] accountant bookkeeper Return with worsening or new symptoms Verbalized understanding and agreed with treatment plan (5) Pulmonary nodule: Code(s): R91.1 - Solitary pulmonary nodule Plan: Followed by [facility] pulmonology (6) Bronchiectasis: Code(s): J47.9 - Bronchiectasis, uncomplicated Qualifiers: Bronchiectasis type: uncomplicated Qualified Code(s): J47.9 - Bronchiectasis, uncomplicated Plan: As above (7) Obesity (BMI 30-39.9): Code(s): E66.9 - Obesity, unspecified Plan: She admits to making healthy dietary choices and walking for exercise and has gradually been losing weight History of gastric bypass surgery She weighs 210 lb, and BMI is 39.7 Healthy diet and routine exercise encouraged May referred to weight management as needed Verbalized understanding and agreed with treatment plan (8) Laboratory tests ordered as part of a complete physical exam (CPE): Code(s): Z00.00 - Encounter for general adult medical examination without abnormal findings Plan: Fasting labs ordered as part of a complete physical exam. Advised to fast for at least 10 hours before getting labs drawn. May drink water Verbalized understanding and agreed with treatment plan. Orders: Orders Lipid Panel Today Z00.00 - Encounter for general adult medical examination without abnormal findings Vitamin D 25-OH Total Today E55.9 - Vitamin D deficiency, unspecified TSH reflex Free T4 Today Z00.00 - Encounter for general adult medical examination without abnormal findings Complete Blood Count Auto Diff Today I10 - Essential (primary) hypertension, Z00.00 - Encounter for general adult medical examination without abnormal findings UA CC w/rflx Micro + Cult Today N94.9 - Unspecified condition associated with female genital organs and menstrual cycle, Z00.00 - Encounter for general adult medical examination without abnormal findings PTHI Today R79.89 - Other specified abnormal findings of blood chemistry Referrals FINANCIAL SERVICES PROFESSIONAL Referral N94.9 - Unspecified condition associated with female genital organs and menstrual cycle Coding Level of Care Code Est Pt Level 4 (95748) Diagnoses Essential hypertension I10 Anxiety F41.9 Elevated parathyroid hormone R79.89 Vaginal symptom N94.9 Pulmonary nodule R91.1 Bronchiectasis without complication J47.9 Bronchiectasis type: uncomplicated Obesity (BMI 30-39.9) E66.9 Laboratory tests ordered as part of a complete physical exam (CPE) Z00.00 Additional Codes DAVID-7 Assessment Billing - DAVID-7 Assessment Tool: DAVID-7 Assessment 63285 ([id number])
== END 2023-01-29 14:16 | disposition home or self-care (01) ==
PROVIDERS: PCP Hospitalist; Visit Provider Nurse Practitioner Family
DX: I10 Essential (primary) hypertension (principal); J47.9 Bronchiectasis, uncomplicated; F41.9 Anxiety disorder, unspecified; R79.89 Other specified abnormal findings of blood chemistry; N94.9 Unspecified condition associated with female genital organs and menstrual cycle; R91.1 Solitary pulmonary nodule; E66.9 Obesity, unspecified
CPT/HCPCS: 99214

== ENCOUNTER 2023-03-07 08:26 | Outpatient (REF) | payer OTHER, SELFPAY ==
[2023-03-07 08:57] LABS: MANUAL DIFF FLAG NO
[2023-03-07 10:20] LABS: Basophils Absolute Auto 0.1 X10*3/uL (0.0-0.2); Basophils Percent Auto 0.9 % (0-2); Eosinophils Absolute Auto 0.2 X10*3/uL (0.0-0.4); Eosinophils Percent Auto 2.2 % (0-4); Hematocrit 46.8 % (37.0-47.0); Hemoglobin 15.5 g/dl (12.0-16.0); Imm Gran Abs Auto 0.09 X10*3/uL (0.00-0.03); Imm Gran Pct Auto 0.9 % (0.0-0.4); Lymphocytes Absolute Auto 1.6 X10*3/uL (1.2-4.9); Lymphocytes Percent Auto 15.3 % (20-40); Mean Corpuscular HGB Conc 33.1 g/dl (31.0-35.0); Mean Corpuscular Hemoglobin 32.8 pg (27.0-33.0); Mean Corpuscular Volume 98.9 fL (80.0-98.0); Mean Platelet Volume 9.2 fL (9.4-12.3); Monocytes Absolute Auto 0.7 X10*3/uL (0.1-1.2); Monocytes Percent Auto 6.2 % (2-11); Neutrophils Absolute Auto 7.9 x10*3/uL (2.0-8.3); Neutrophils Percent Auto 74.5 % (45-73); Platelet Count 311 X10*3/uL (160-400); Red Blood Count 4.73 X10*6/uL (4.20-5.50); Red Cell Distribution Width 12.1 % (11.0-16.0); White Blood Count 10.5 X10*3/uL (4.8-10.8)
[2023-03-07 10:39] LABS: Parathyroid Hormone Intact 75.9 pg/mL (8.7-77.1)
[2023-03-07 11:09] LABS: Calcium 9.4 mg/dL (8.4-10.2); Cholesterol 196 mg/dL (<200); HDL Cholesterol 65 mg/dL (>40); LDL Cholesterol Calculated 102 mg/dL (<100); Triglycerides 148 mg/dL (<150)
[2023-03-07 11:20] LABS: TSH reflex Free T4 0.81 uIU/mL (0.32-4.0); Vitamin D 25-OH Total 42.2 ng/mL (>30)
[2023-03-07 12:23] LABS: Appearance Urine Turbid; Color Urine Dark Yellow; Glucose Urine UA Negative (Negative); Leukocyte Esterase Urine Moderate (2+) (Negative); Nitrite Urine Negative (Negative); PH 5.5 (5.0-9.0); Specific Gravity - Urine 1.025 (1.005-1.025); UMIC TRIGGER UACC YES; Urine Blood Negative (Negative); Urine Ketones Trace mg/dL (Negative); Urine Protein 30 (1+) mg/dL (Neg-Trace)
[2023-03-07 12:42] LABS: Bacteria Urine 2+ (None Seen); Calcium Oxalate Crystals Urine Present; RBC Urine 0-2 /HPF (0-2); UACC Culture Trigger YES
== END 2023-03-07 08:27 | disposition home or self-care (01) ==
LOC: HO.LAB 08:26
PROVIDERS: PCP Nurse Practitioner Family; Visit Provider Nurse Practitioner Family
DX: Z00.00 Encounter for general adult medical examination without abnormal findings (principal); I10 Essential (primary) hypertension; E55.9 Vitamin D deficiency, unspecified; C50.919 Malignant neoplasm of unspecified site of unspecified female breast; N94.9 Unspecified condition associated with female genital organs and menstrual cycle; R82.90 Unspecified abnormal findings in urine
CPT/HCPCS: 36415; 80061; 81001; 82306; 82310; 83970; 84443; 85025; 87086

== ENCOUNTER 2023-03-19 13:28 | Outpatient (AMB) | payer OTHER, SELFPAY ==
--- NOTE | 2023-03-19 13:32 | A.OFFVIS_ITS ---
Intake Vital Signs 03/19/23 13:33 Height 5 ft 1 in Weight 209 lb 7.026 oz BMI 39.6 BP 142/80 H Intake Visit Reasons: vag pressure/PCP referral Intake Note: ? vaginal prolapse Feed Grinder Required: No Information Interpreted: non-clinical & clinical Small Offset Printer: Small Offset Printer Present (Criss ACEVEDO) Accompanied by: Self / Same As Patient Allergies adhesive Allergy (Severe, Verified 03/19/23 13:35) Rash nystatin Allergy (Intermediate, Verified 03/19/23 13:35) Hives sulfide Allergy (Intermediate, Uncoded 03/19/23 13:35) Hives Post menopausal: Yes HPI HPI Comments History of Present Illness Details Presenting referred from her PCP regarding pelvic pressure and a bulge per vagina over the last few months . Patient gives a history of breast cancer 5 years ago on letrozole and history of uterine myoma in 0 was 7 PFSH Medical History Levoscoliosis Osteoarthritis Dyspnea Breast cancer Pulmonary nodule Surgical History History of knee replacement procedure of right knee History of knee replacement procedure of left knee S/P lumpectomy, right breast Family History Father CVA (cerebral vascular accident) HTN (hypertension) Gout Scoliosis Mother CVA (cerebral vascular accident) Cancer Colon cancer CHF (congestive heart failure) COPD (chronic obstructive pulmonary disease) HTN (hypertension) Migraine Anxiety Depression Son Carotid artery aneurysm SMA (spinal muscular atrophy) Anterior horn cell disease Social History Household Members: Spouse Housing: Apartment Alcohol intake: current Alcohol intake frequency: a few times a week Alcohol type: wine Patient Tobacco Use Status: Never used Tobacco e-Cigarette/Vaping Use: Never Used service: No Current occupational status: retired Cognitive needs: No Hearing needs: No Vision needs: No Physical Exam Vital Signs: Last Vital Signs BP 142/80 H 03/19/23 13:33 BMI result Body Mass Index 39.6 Assessment & Plan Assessment & Plan (1) Breast cancer: Code(s): C50.919 - Malignant neoplasm of unspecified site of unspecified female breast Qualifiers: Breast location: unspecified site of breast Estrogen receptor status: unspecified Patient sex: female Laterality: right Qualified Code(s): C50.911 - Malignant neoplasm of unspecified site of right female breast Plan: Will refer the patient to Dr. Ford regarding breast cancer management Given the patient's family history of colon cancer, uterine cancer and personal history of breast cancer refer to [facility] cancer genetics counseling (2) Cystocele with rectocele: Code(s): N81.10 - Cystocele, unspecified; N81.6 - Rectocele Plan: Discussed with the patient the finding on pelvic exam showing mild to moderate cystorectocele. Options of treatment discussed with the patient include expectant management versus pessary. All pros and cons, risks and benefits of each were discussed with the patient, the patient decided to proceed with expectant management for the time being and will call back if symptoms get worse. All questions answered, the patient verbalized understanding (3) Uterine myoma: Code(s): D25.9 - Leiomyoma of uterus, unspecified Plan: Will order pelvic ultrasound compare the size the myomas and treat accordingly. Instructions given the patient to schedule a 2 week ultrasound follow-up appointment. Orders: Orders US pelvic and transvaginal Today D25.9 - Leiomyoma of uterus, unspecified Referrals Genetics Referral C50.919 - Malignant neoplasm of unspecified site of unspecified female breast Hematology & Oncology Referral C50.919 - Malignant neoplasm of unspecified site of unspecified female breast Coding Level of Care Code New Pt Level 3 (11330) Diagnoses Malignant neoplasm of right female breast, unspecified estrogen receptor status, unspecified site of breast C50.911 Breast location: unspecified site of breast Estrogen receptor status: unspecified Patient sex: female Laterality: right Cystocele with rectocele N81.10; N81.6 Uterine myoma D25.9
[2023-03-19 13:33] VITALS: BP 142/80; BMI 39.6
== END 2023-03-19 14:57 | disposition home or self-care (01) ==
PROVIDERS: PCP Nurse Practitioner Family; Visit Provider Obstetrics & Gynecology
DX: C50.911 Malignant neoplasm of unspecified site of right female breast (principal); N81.10 Cystocele, unspecified; N81.6 Rectocele; D25.9 Leiomyoma of uterus, unspecified
CPT/HCPCS: 99203

== ENCOUNTER → 2023-03-19 13:28 | Outpatient (BNVA) | payer OTHER, SELFPAY | PROVIDERS: PCP Nurse Practitioner Family; Visit Provider Obstetrics & Gynecology ==

== ENCOUNTER 2023-04-01 08:12 | Outpatient (AMB) | payer OTHER, SELFPAY ==
[2023-04-01 08:21] VITALS: BP 136/78; PULSE 111; RESP 14; TEMP 36; O2SAT 96; BMI 40.1
--- NOTE | 2023-04-01 08:21 | A.OFFPC_ITS ---
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: No Accompanied by: Self / Same As Patient Allergies adhesive Allergy (Severe, Verified 04/01/23 08:37) Rash nystatin Allergy (Intermediate, Verified 04/01/23 08:37) Hives sulfide Allergy (Intermediate, Uncoded 04/01/23 08:37) Hives Medication List - Last Reconciled 04/01/23 by Wesley Sales CNP albuterol sulfate 90 mcg/actuation 2 inhalations inhalation Q6H PRN 30 days cholecalciferol (vitamin D3) 250 mcg PO DAILY cyanocobalamin (vitamin B-12) 1,000 mcg PO DAILY diltiazem HCl 300 mg PO DAILY ibuprofen 600 mg PO Q8H PRN lactobacillus combination no.9 (Adult 50 Plus Probiotic) 4,000 mmu cells PO DAILY letrozole 2.5 mg PO DAILY spironolactone 25 mg PO DAILY venlafaxine ER 75 mg PO DAILY 90 days Tobacco use date assessed: 04/01/23 Fall risk assessment: No Falls in past year Last assessed Fall Risk: 04/01/23 Dental Screening Dental Screen Date: 04/01/23 Did you have a dental visit in the last 12 months?: Yes Did you have a dental problem in the last 6 months where you did not have access to dental care?: No Was dental information given to patient?: Patient has dentist HPI HPI Comments History of Present Illness Details 72-year-old female presents for an exten ded physical exam She admits to taking her medications as prescribed without adverse reactions She has past medical history significant for hypertension, bronchiectasis, solitary pulmonary nodule, osteopenia, gastric bypass, neurofibromatosis, scoliosis, chronic LBP, carpal tunnel syndrome of both hands, vitamin D deficiency, elevated PTH, and anxiety. She is on Letrozole for history of right breast cancer She offers no complaints and denies acute symptoms at this time Last mammogram 03/2022: benign. Next mammogram due in 2 weeks Last colonoscopy 09/2019: pre-cancerous polyps She is followed by [facility]; was referred to genetics r/t h/o breast cancer Has an appointment with [facility] hematology next month Last bone scan was on 04/02/21: Osteopenia. She notes that Medicare covers every 3 years bone scan Last pap smear test 2010: normal. No longer performs pap smear test She is followed by [facility] for carpal tunnel syndrome, chronic low back pain, and chronic left hip pain She is followed by [facility] cardiology and has an appointment next month She is also followed by Dermatology and [facility] pulmonology She notes that she is up-to-date on the flu and pneumonia vaccines [facility] Medical History Levoscoliosis Osteoarthritis Dyspnea Breast cancer Pulmonary nodule Surgical History History of knee replacement procedure of right knee History of knee replacement procedure of left knee S/P lumpectomy, right breast Family History Father CVA (cerebral vascular accident) HTN (hypertension) Gout Scoliosis Mother CVA (cerebral vascular accident) Cancer Colon cancer CHF (congestive heart failure) COPD (chronic obstructive pulmonary disease) HTN (hypertension) Migraine Anxiety Depression Son Carotid artery aneurysm SMA (spinal muscular atrophy) Anterior horn cell disease Social History Household Members: Spouse Housing: Apartment Alcohol intake: current Alcohol intake frequency: a few times a week Alcohol type: wine Patient Tobacco Use Status: Never used Tobacco e-Cigarette/Vaping Use: Never Used service: No Current occupational status: retired Cognitive needs: No Hearing needs: No Vision needs: No Questionnaire PHQ-9 Over the last 2 weeks, how often have you been bothered by any of the following problems? 1. Little interest or pleasure in doing things: not at all 2. Feeling down, depressed, or hopeless: not at all 3. Trouble falling or staying asleep, or sleeping too much: nearly every day 4. Feeling tired or having little energy: several days 5. Poor appetite or overeating: not at all 6. Feeling bad about yourself - or that you are a failure or have let yourself or your family down: not at all 7. Trouble concentrating on things, such as reading the newspaper or watching television: not at all 8. Moving or speaking so slowly that other people could have noticed. Or the opposite - being so fidgety or restless that you have been moving around a lot more than usual: not at all 9. Thoughts that you would be better off or of hurting yourself in some way: not at all Total score: 4 Depression Screening Interpretation: Negative Depression Screening Done: Yes 46090 - PHQ-9 Billing: Yes Source: Developed by Drs. Chinmay Pedroza, Brigid Langston, Lucas Feng and colleagues, with an educational chris from [employer]. Thrive Questionnaire Date Thrive assessed: 04/01/23 I am a: Patient What is your living situation today?: I have a steady place to live Within the past 12 months, did the food you bought not last and you didn't have the money to get more?: Never true Within the past 12 months, did you worry whether your food would run out before you got money to buy more?: Never true Do you have trouble paying for medicines?: No Do you have trouble getting transportation to medical appointments?: No Do you have trouble paying your heating and electricity bill?: No Do you have trouble taking care of your child, family member or friend?: No Do you have trouble with day-to-day activities such as bathing, preparing meals, shopping, managing finances, etc.?: No Are you currently unemployed and looking for a job?: No Are you interested in more education?: No Please select the resources that you would like help with: None Currently or been in a relationship where the following occur: no concerns reported THRIVE Score: 0 AUDIT C Alcohol Use Questionnaire (AUDIT-C) 1. How often do you have a drink containing alcohol?: 2-3 times a week 2. How many drinks containing alcohol do you have on a typical day when you are drinking?: 1 or 2 3. How often do you have six or more drinks on one occasion?: Never Total Score: 3 DAVID-7 AMB Questionnaire DAVID-7 Date DAVID - 7 assessed: 04/01/23 Feeling nervous, anxious, or on edge: 3 = Nearly every day Not being able to stop or control worryin = Not at all Worrying too much about different things: 0 = Not at all Trouble relaxin = Not at all Being so restless that it is hard to sit still: 0 = Not at all Becoming easily annoyed or irritable: 0 = Not at all Feeling afraid as if something awful might happen: 0 = Not at all Total DAVID-7 score (0-4 normal; 5-9 mild; 10-14 moderate; 15-21 severe): 3 Source: Developed by Drs. Chinmay Pedroza, Brigid Langston, Lucas Feng and colleagues, with an educational chris from [employer]. DAVID-7 Assessment Billing DAVID-7 Assessment Tool: DAVID-7 Assessment 87902 ACT Questionnaire In the past 4 weeks, how much of the time did your asthma keep you from getting as much done at work, school or at home?: A little of the time During the past 4 weeks, how often have you had shortness of breath?: 1-2 times a week During the past 4 weeks, how often did your asthma symptoms wake you up at night or earlier than usual in the morning?: Not at all During the past 4 weeks, how often have you had to use your rescue inhaler or nebulizer medication?: Once a week or less How would you rate your asthma control during the past 4 weeks?: Completely controlled ACT Interpretation: Positive Score: 22 Review of Systems Const Details: Denies chills, Denies fatigue, Denies fever(s), Denies headache(s) and Denies weakness HEENT Denies change in vision, Denies dizziness, Denies headache(s), Denies hearing loss, Denies nasal congestion, Denies sinus pain, Denies sinus pressure and Denies sore throat Card Denies chest pain, Denies lightheadedness, Denies dyspnea and Denies other (palpitations) Resp Denies cough, Denies dyspnea and Denies wheezing GI Denies abdominal pain, Denies melena, Denies hematochezia, Denies change in bowel habits, Denies dyspepsia and Denies nausea Denies hematuria and Denies dysuria Musc Denies abnormal gait, Denies myalgias, Denies arthralgias, Denies numbness and Denies tingling Skin/Breast Denies rash, Denies unusual bruising and Denies wounds Neuro Denies abnormal gait, Denies dizziness, Denies headache(s), Denies memory loss, Denies numbness, Denies Sensory deficit (Neuro), Denies tingling and Denies weakness Psych Denies anxiety, Denies depression and Denies memory loss Endo Denies cold intolerance, Denies fatigue, Denies heat intolerance, Denies polydipsia and Denies polyuria Robert/Lymph Denies easy bleeding and Denies easy bruising Aller/Immun Denies wheezing Physical exam (Primary Care) Vital Signs: Last Vital Signs Temp 96.8 F 04/01/23 08:21 Pulse 108 H 04/01/23 09:05 Resp 14 04/01/23 08:21 BP 130/90 H 04/01/23 09:05 Pulse Ox 96 04/01/23 08:21 Oxygen Delivery Method Room Air 04/01/23 08:21 BMI result Body Mass Index 40.1 Tobacco/Smoking Status: Tobacco use Status Tobacco use date assessed 04/01/23 04/01/23 08:37 Patient Tobacco Use Status Never used Tobacco 04/01/23 08:37 e-Cigarette/Vaping Use Never Used 04/01/23 08:37 PHQ-9: PHQ-9 Score PHQ-9: Total score 4 04/01/23 08:37 Depression Screening Interpretation: Negative Thrive Assessment: Date of Thrive Assessment Date Thrive assessed 04/01/23 04/01/23 08:37 Currently or been in a relationship where the following occur: no concerns reported Const Other: General: no acute distress, well developed, alert and awake Nutritional Appearance: well nourished Orientation/consciousness: patient oriented x3 HENMT Head: Yes normocephalic and Yes atraumatic Ears: hearing grossly normal bilaterally and TM's normal bilaterally General nose exam: Normal external nose present and Normal nares present Mouth: Normal oral and palatal mucosa present and moist mucous membranes Teeth and gingiva: dentition normal Throat: Yes oropharynx normal Eyes Pupils: Equal, round and reactive pupils present and Pupil accommodation reflex normal EOM: EOMs intact bilaterally Neck Neck: Yes normal visual inspection, Yes no lymphadenopathy and Yes trachea midline Thyroid: Thyroid normal Carotids: no bruits Lymphatic: no lymphadenopathy noted Chest Chest palpation & inspection: normal inspection of the chest Resp Effort & Inspection: normal respiratory effort Auscultation: clear to auscultation bilaterally Cardio Rate: regular rate Rhythm: regular rhythm Heart sounds: S1 normal heart sound present, S2 normal heart sound present, no gallops, no murmurs and no rubs Bruits: no abdominal aortic bruits and no carotid bruits GI Palpation (GI): No Abdominal aortic bruit present, Soft to palpation, nontender, No hepatosplenomegaly present and No Rebound tenderness present Auscultation: normal bowel sounds General: Yes no CVA tenderness Back/Spine/Pelvis Back: no CVA tenderness Cervical Spine: cervical ROM normal and No Cervical spine tenderness Thoracic/Lumbar Spine: thoraco-lumbar ROM normal, No pain with thoraco-lumbar ROM, No thoracic spinal tenderness and No lumbar spinal tenderness Skin General: warm and dry. Normal skin color. Normal skin turgor Lesions: no lesions Rashes: no rashes Trauma: no lacerations or abrasions Wounds: no wounds Nails: normal Neuro General: patient oriented x3, gait normal and CN's II-XI intact bilaterally Cranial nerves: Yes Equal, round and reactive pupils present Cognition (Neuro): normal cognition Gait exam (Neuro): Normal gait present Motor exam (neuro): 5/5 motor strength present throughout Sensory Exam: No Sensory deficit (Neuro) Deep tendon reflexes (DTR's): Right patellar reflex intensity grade: 2+ and Left patellar reflex intensity grade: 2+ Extrem General: Yes normal to inspection, No edema and No calf tenderness Psych Appearance: grossly normal Affect: normal affect Attitude: cooperative Thought process: Normal thought process present Assessment and Plan Assessment & Plan (1) Normal physical examination, routine: Code(s): Z00.00 - Encounter for general adult medical examination without abnormal findings Plan: No significant physical restrictions or limitations noted. Physical exam is otherwise normal Recent lab results reviewed with patient; unremarkable findings Continue current treatment Follow-up in 2 months for hypertension and anxiety Return with symptoms or concerns Verbalized understanding and agreed with treatment plan (2) Essential hypertension: Code(s): I10 - Essential (primary) hypertension Plan: Resting blood pressure is 130/90, slightly above goal of less than 140/90 Continue current treatment regimen Low-sodium diet encouraged Follow-up with cardiology as planned Return in 2 months or sooner with symptoms or concerns Verbalized understanding and agreed with treatment plan (3) Anxiety: Code(s): F41.9 - Anxiety disorder, unspecified Plan: Reports controlled anxiety symptoms on current treatment regimen PHQ-9 and DAVID-7 scores are normal Continue current treatment Routine exercise encouraged Follow-up in 2 months or return sooner with worsening or new symptoms Verbalized understanding and agreed with treatment plan (4) Colon cancer screening: Code(s): Z12.11 - Encounter for screening for malignant neoplasm of colon Plan: Last colonoscopy 09/2019: pre-cancerous polyps Referred to [facility] gastroenterology for a colonoscopy Orders: Referrals Gastroenterology Referral Z12.11 - Encounter for screening for malignant neoplasm of colon Coding Level of Care Code Est Pt Prev Care >65y(81924) Diagnoses Normal physical examination, routine Z00.00 Essential hypertension I10 Anxiety F41.9 Colon cancer screening Z12.11 Additional Codes DAVID-7 Assessment Billing - DAVID-7 Assessment Tool: DAVID-7 Assessment [id number] ([id number])
[2023-04-01 09:05] VITALS: BP 130/90; PULSE 108
== END 2023-04-01 09:42 | disposition home or self-care (01) ==
PROVIDERS: PCP Nurse Practitioner Family; Visit Provider Nurse Practitioner Family
DX: Z00.00 Encounter for general adult medical examination without abnormal findings (principal); I10 Essential (primary) hypertension; F41.9 Anxiety disorder, unspecified; Z12.11 Encounter for screening for malignant neoplasm of colon
CPT/HCPCS: 99397

== ENCOUNTER 2023-04-04 13:45 | Outpatient (REF) | payer OTHER, SELFPAY ==
--- NOTE | ~2023-04-04 | US_ITS ---
EXAMINATION: US PELVIS CLINICAL INFORMATION: Leiomyoma of uterus unspecified, postmenopausal. COMPARISON: None available. TECHNIQUE: Transabdominal and transvaginal ultrasound images of the pelvis. Limited visualization due to bowel gas and body habitus. FINDINGS: The uterus measures 4.0 x 2.1 x 3.1 cm. 2.8 x 2.5 x 2.5 cm complex right uterine mass with echogenic foci characteristic of calcifications was difficult to characterize due to limited visualization. Endometrium is poorly visualized due to limited visualization. Image segment of endometrium with thickness of 0.2 cm. Bilateral ovaries were not visualized. No significant free fluid. US/US pelvic and transvaginal IMPRESSION: 2.8 cm complex right uterine mass with echogenic foci characteristic of calcifications was difficult to characterize due to limited visualization. Endometrium is poorly visualized due to limited visualization. Image segment of endometrium with thickness of 0.2 cm. Bilateral ovaries were not visualized.
== END 2023-04-04 13:46 | disposition home or self-care (01) ==
LOC: HO.US 13:45
PROVIDERS: PCP Nurse Practitioner Family; Visit Provider Obstetrics & Gynecology
DX: D25.9 Leiomyoma of uterus, unspecified (principal)
CPT/HCPCS: 76830; 76856

== ENCOUNTER 2023-04-15 10:00 | Outpatient (AMB) | payer OTHER, SELFPAY ==
[2023-04-15 10:03] VITALS: BP 142/90; PULSE 97; BMI 40.1
--- NOTE | 2023-04-15 10:03 | A.OFFVIS_ITS ---
Intake Vital Signs 04/15/23 10:03 Height 5 ft 1 in Weight 212 lb 1.355 oz BMI 40.1 BP 142/90 H Blood Pressure Location Rt brachial Position Sitting Pulse 97 Pulse Source Pulse Oximeter Intake Visit Reasons: 6 MON FUP PER DC Allergies adhesive Allergy (Severe, Verified 04/15/23 10:05) Rash nystatin Allergy (Intermediate, Verified 04/15/23 10:05) Hives sulfide Allergy (Intermediate, Uncoded 04/01/23 08:37) Hives Medication List - Last Reconciled 04/15/23 by SHANNAN Ramirez albuterol sulfate 90 mcg/actuation 2 inhalations inhalation Q6H PRN 30 days cholecalciferol (vitamin D3) 250 mcg PO DAILY cyanocobalamin (vitamin B-12) 1,000 mcg PO DAILY diltiazem HCl 300 mg PO DAILY ibuprofen 600 mg PO Q8H PRN lactobacillus combination no.9 (Adult 50 Plus Probiotic) 4,000 mmu cells PO DAILY letrozole 2.5 mg PO DAILY spironolactone 25 mg PO DAILY venlafaxine ER 75 mg PO DAILY 90 days HPI 6 MON FUP PER DC HPI Details Chela is a 72-year-old female with past medical history of hypertension, inappropriate sinus tachycardia who presents for follow-up. Today she reports that she has been feeling very well overall. She has no chest discomfort at rest with activity. No shortness of breath, concerning palpi tations, lightheadedness, presyncope, syncope, PND, orthopnea or edema. She reports good activity tolerance. 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 She is taking her medications as directed. She is requesting a Nephrology evaluation for her blood pressure. [facility] Medical History Levoscoliosis Osteoarthritis Dyspnea Breast cancer Pulmonary nodule Surgical History History of knee replacement procedure of right knee History of knee replacement procedure of left knee S/P lumpectomy, right breast Family History Father CVA (cerebral vascular accident) HTN (hypertension) Gout Scoliosis Mother CVA (cerebral vascular accident) Cancer Colon cancer CHF (congestive heart failure) COPD (chronic obstructive pulmonary disease) HTN (hypertension) Migraine Anxiety Depression Son Carotid artery aneurysm SMA (spinal muscular atrophy) Anterior horn cell disease Social History Household Members: Spouse Housing: Apartment Alcohol intake: current Alcohol intake frequency: a few times a week Alcohol type: wine Patient Tobacco Use Status: Never used Tobacco e-Cigarette/Vaping Use: Never Used service: No Current occupational status: retired Cognitive needs: No Hearing needs: No Vision needs: No Review of Systems Const All systems reviewed & are unremarkable except as noted in HPI and below ENT Denies dizziness Card Denies chest pain, Denies chest pain at rest, Denies chest pain with activity, Denies rapid heart rate, Denies pedal edema, Denies edema, Denies leg edema, Denies lightheadedness, Denies palpitations, Denies dyspnea, Denies dyspnea on exertion and Denies orthopnea Resp Denies cough, Denies dyspnea and Denies dyspnea on exertion GI Denies hematochezia and Denies change in stool character Musc Denies abnormal gait, Denies limited range of motion, Denies muscle cramps, Denies muscle weakness, Denies numbness, Denies radiating pain into limb, Denies stiffness and Denies tingling Neuro Denies abnormal gait, Denies dizziness, Denies numbness and Denies tingling Endo Denies palpitations Physical Exam Vital Signs: BMI result Body Mass Index 40.1 Const General: cooperative, healthy appearing, comfortable and no acute distress Orientation/consciousness: patient oriented x3 Neck Neck: Yes normal visual inspection and Yes no JVD Resp Effort & Inspection: normal respiratory effort Auscultation: clear to auscultation bilaterally, no crackles, no rales, no rhonchi and no wheezes Cardio Jugular venous distension: no JVD Rate: regular rate Rhythm: regular rhythm Heart sounds: S1 normal heart sound present, S2 normal heart sound present, no murmurs and no rubs Neuro General: patient oriented x3 Extrem General: Yes normal to inspection, No no pedal edema and No calf tenderness Psych Appearance: grossly normal Mental Status: mental status grossly normal Speech and movement: Normal speech and movement present Assessment & Plan Assessment & Plan (1) Essential hypertension: Code(s): I10 - Essential (primary) hypertension Plan: History of hypertension. Currently treated with Diltiazem and spironolactone. She had been on hydrochlorothiazide in the past and had issues with hypokalemia. She had been on clonidine and recently weaned off slowly. Blood pressure is improved however remains elevated. Third antihypertensive agent will likely need. Discussed high blood pressure and its origin with her. She is requesting a nephrology consultation for her hypertension. This is reasonable as she has normal kidney function and need to keep them that way. She may need evaluation for secondary causes of hypertension. Will refer to [facility] Nephrology. If her visit is greater than 1 month away I have asked that she call this office and let us know. At that time I will start her on JALEEL inhibitor, lisinopril 10 mg daily. BNP is currently pending. Reviewed low-salt diet, weight control, activity as tolerated. (2) Sinus tachycardia: Code(s): R00.0 - Tachycardia, unspecified Plan: History of inappropriate sinus tachycardia. Notes indicate prior echocardiogram at [facility] 02/2021 was normal. She is on diltiazem for heart rate control as well as blood pressure. Holter monitor done 02/05/2022 for 3 days showed sinus rhythm with average heart rate 94 with occasional PVCs. Echocardiogram done 07/24/2022 showed EF 69%, no regional wall motion abnormality or valve abnormality. EKG last visit showing sinus tach, rate 104 which she was very pleased with. Currently on diltiazem 300 mg daily. Pulse today at rest is 97. She reports that when her heart rate is fast it only goes up to low 100s instead of 140s. Overall she again is very pleased with how she is doing. Continue current diltiazem. Avoid stimulants. Cardiology follow-up in 6 months, sooner if needed Plan Time spent on chart review, documentation, interview and assessment Orders: Orders Basic Metabolic Panel Today I10 - Essential (primary) hypertension Referrals Nephrology Referral I10 - Essential (primary) hypertension Coding Level of Care Code Est Pt Level 3 (21175) Diagnoses Essential hypertension I10 Sinus tachycardia R00.0 Time Spent (min) 24
== END 2023-04-15 10:29 | disposition home or self-care (01) ==
PROVIDERS: PCP Student in an Organized Health Care Education/Training Program; Visit Provider Nurse Practitioner Family
DX: I10 Essential (primary) hypertension (principal); R00.0 Tachycardia, unspecified
CPT/HCPCS: 99213

== ENCOUNTER → 2023-04-15 10:00 | Outpatient (BNVA) | payer OTHER, SELFPAY | PROVIDERS: PCP Hospitalist; Visit Provider Nurse Practitioner Family ==

== ENCOUNTER 2023-05-01 10:59 | Outpatient (AMB) | payer OTHER, SELFPAY ==
[2023-05-01 11:06] VITALS: BP 134/90; PULSE 111; O2SAT 97; BMI 37.4
--- NOTE | 2023-05-01 11:06 | HO.NEPHOV ---
HPI HPI Comments History of Present Illness Details Chela is a 72-year-old female with H/O hypertension for some time. She has history of inappropriate sinus tachycardia. She has past medical history significant for hypertension, bronchiectasis, solitary pulmonary nodule, osteopenia, gastric bypass, neurofibromatosis, scoliosis, chronic LBP, carpal tunnel syndrome of both hands, vitamin D deficiency, elevated PTH, and anxiety. She is on Letrozole for history of right breast cancer. She closely monitors her heart rate and had been fluctuant but better since she is on diltiazem 300 mg daily. She does not take excess sodium in the diet. She has history of gastric bypass and had 1 episode of profound hypokalemia which has been corrected. She is maintained on spironolactone. She denies any coronary artery disease, congestive heart failure, carotid stenosis, peripheral arterial disease, history of renal artery stenosis or renal dysfunction. she has been feeling well overall. She has no chest discomfort at rest with activity. No shortness of breath, concerning palpitations, lightheadedness, presyncope, syncope, PND, orthopnea or edema. She reports good activity tolerance. 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 She is taking her medications as directed. Her blood pressure control had been suboptimal. Nephrology has been consulted to assist in her clinical care. [facility] Medical History Levoscoliosis Osteoarthritis Dyspnea Breast cancer Pulmonary nodule Surgical History History of knee replacement procedure of right knee History of knee replacement procedure of left knee S/P lumpectomy, right breast Family History Father Scoliosis Gout HTN (hypertension) CVA (cerebral vascular accident) Mother Colon cancer CHF (congestive heart failure) Anxiety Depression Migraine COPD (chronic obstructive pulmonary disease) Cancer HTN (hypertension) CVA (cerebral vascular accident) Uterine cancer Son SMA (spinal muscular atrophy) Carotid artery aneurysm Anterior horn cell disease Social History Household Members: Spouse Housing: Apartment Alcohol intake: current Alcohol intake frequency: a few times a week Alcohol type: wine Patient Tobacco Use Status: Never used Tobacco e-Cigarette/Vaping Use: Never Used service: No Current occupational status: retired Cognitive needs: No Hearing needs: No Vision needs: No Vital Signs 05/01/23 11:06 Height 5 ft 3 in Weight 211 lb 4 oz BMI 37.4 BP 134/90 H Blood Pressure Location Lt brachial Position Sitting Pulse 111 H Pulse Source Pulse Oximeter Pulse Oximetry (%) 97 Oxygen Delivery Method Room Air Physical Exam Vital Signs: Last Vital Signs Pulse 111 H 05/01/23 11:06 BP 134/90 H 05/01/23 11:06 Pulse Ox 97 05/01/23 11:06 Oxygen Delivery Method Room Air 05/01/23 11:06 BMI result Body Mass Index 37.4 Const General: comfortable and no acute distress Orientation/consciousness: patient oriented x3 HEENT Head: Yes normocephalic Mouth: Normal oral and palatal mucosa present Eyes EOM: EOMs intact bilaterally Neck Neck: Yes supple Resp Auscultation: clear to auscultation bilaterally Cardio Jugular venous distension: no JVD Rate: regular rate GI Palpation (GI): Soft to palpation Auscultation: normal bowel sounds Skin General skin exam: no rashes or lesions noted Neuro General: patient oriented x3 and moves all extremities Extrem General: Yes no pedal edema Assessment & Plan Assessment & Plan (1) Essential hypertension: Code(s): I10 - Essential (primary) hypertension Plan Chela has hypertension for a while. She has history of tachycardia as well. She has been by Cardiology team. She has not known to have any CAD or CHF. Her renal functions are normal. Given her pulmonary condition, she is at risk for multifocal atrial tachycardia. She is tolerating diltiazem 300 mg daily. At this moment there is no recent suspect any secondary etiology for her hypertension. I discontinued her spironolactone and put her on metoprolol succinate 25 mg daily to be taken along with the diltiazem in the morning. We shall monitor her serum potassium after discontinuation of spironolactone. She maintains a very good low-sodium diet. I did not make any other changes. More than 50% of time spent discussing her issues and possible ongoing management strategies. Answered all her and her 's questions. Follow-up appointment given Medications: New metoprolol succinate ER 25 mg PO DAILY 30 days 30 tabs 3RF Discontinued spironolactone Discontinued Reason: Doctor's Order 25 mg PO DAILY 30 tabs 5RF Coding Level of Care Code New Pt Level 4 (01043) Diagnoses Essential hypertension I10 Results Reviewed Nephrology Results: Hgb 15.7 g/dl (12.0-16.0) 04/18/23 WBC 8.9 X10*3/uL (4.8-10.8) 04/18/23 Plt Count 325 X10*3/uL (160-400) 04/18/23 Sodium 139 mmol/L (135-145) 04/18/23 Potassium 3.9 mmol/L (3.3-5.1) 04/18/23 Chloride 103 mmol/L (96-108) 04/18/23 Carbon Dioxide 26 mmol/L (22-29) 04/18/23 BUN 12 mg/dL (9-16) 04/18/23 Creatinine 0.88 mg/dL (0.5-1.4) 04/18/23 Calcium 10.3 mg/dL (8.4-10.2) H 04/18/23 PTH Intact 75.9 pg/mL (8.7-77.1) 03/07/23 Urine Protein 30 (1+) mg/dL (Neg-Trace) H 03/07/23
== END 2023-05-01 11:47 | disposition home or self-care (01) ==
PROVIDERS: PCP Student in an Organized Health Care Education/Training Program; Visit Provider Internal Medicine Nephrology
DX: I10 Essential (primary) hypertension (principal)
CPT/HCPCS: 99204

== ENCOUNTER → 2023-05-01 10:59 | Outpatient (BNVA) | payer OTHER, SELFPAY | PROVIDERS: PCP Student in an Organized Health Care Education/Training Program; Visit Provider Internal Medicine Nephrology ==

== ENCOUNTER 2023-05-21 09:45 | Outpatient (REF) | payer OTHER, SELFPAY ==
[2023-05-21 10:42] LABS: Anion Gap 18 (12-20); Blood Urea Nitrogen 8 mg/dL (9-16); Carbon Dioxide 28 mmol/L (22-29); Chloride 99 mmol/L (96-108); Estimated Glomerular Filt Rate > 60; Potassium 3.8 mmol/L (3.3-5.1); Sodium 141 mmol/L (135-145)
[2023-05-21 12:40] LABS: Creatinine Urine 294.73 mg/dL; Protein/Creatinine Ratio, Ur 0.08 (<0.2); Total Protein Urine Random 24 mg/dL (<12)
== END 2023-05-21 09:46 | disposition home or self-care (01) ==
LOC: HO.LAB 09:45
PROVIDERS: PCP Nurse Practitioner Family; Visit Provider Internal Medicine Nephrology
DX: I10 Essential (primary) hypertension (principal)
CPT/HCPCS: 36415; 80051; 82565; 82570; 84156; 84520

== ENCOUNTER 2023-05-22 08:36 | Outpatient (REF) | payer OTHER, SELFPAY ==
--- NOTE | ~2023-05-22 | MM_ITS ---
EXAMINATION: BONE DENSITOMETRY CLINICAL INDICATION: Osteopenia. COMPARISON: This is the patient's baseline examination. TECHNIQUE: Using a [employer] DXA System (software version: 13.1) manufactured by [employer], dual-energy x-ray absorptiometry was performed of the lumbar spine and left hip. The images are of good technical quality. Summary results are attached. FINDINGS: AP SPINE L1-L4: BMD 1.275 g/cm2, Z-score 1.5, T-score 0.8, normal. LEFT FEMUR, NECK: BMD 0.858 g/cm2, Z-score -0.1, T-score -1.3, osteopenia. LEFT FEMUR, TOTAL: BMD 0.810 g/cm2, Z-score -0.6, T-score -1.6, osteopenia. IDENTIFIED RISK FACTORS: Menopause, hysterectomy, secondary osteoporosis. HISTORY OF FRACTURE: None listed. MEDICATIONS: Multivitamin, vitamin D, ERT/SERMS. MM/XR DEXA axial skeleton IMPRESSION: 1. DIAGNOSIS: Osteopenia based on the lowest T-score value of -1.6 in the total femur applying World Health Organization criteria. 2. 10-YEAR FRACTURE RISK PREDICTION, FRAX: Not performed in this patient on estrogen or bone building treatments. 3. Treatment Recommendations: NOF guidelines recommend consideration for treatment in postmenopausal women and men age 50 and older presenting with the following: -A hip or vertebral (clinical or morphometric) fracture. -T-score less than or equal to -2.5 at the femoral neck or spine after appropriate evaluation to exclude secondary causes. -Low bone mass at the hip or spine and a 10-year fracture probability by FRAX of greater than or equal to 3% for hip fracture or greater than or equal to 20% for major osteoporotic fracture based on the [place] adapted WHO algorithm. 4. Other Recommendations: All treatment decisions require clinical judgment and consideration of individual patient factors, including patient preferences, comorbidities, previous drug use, risk factors not captured in the FRAX model (e.g. frailty, falls, vitamin D deficiency, increased bone turnover, interval significant decline in bone density) and possible under or overestimation of fracture risk by FRAX. Additional medical evaluation for secondary cause of low bone mineral density may be appropriate. FUTURE SCAN RECOMMENDATION: People with diagnosed cases of osteoporosis or at high risk for fracture should have regular bone mineral density tests. For patients eligible for Medicare, routine testing is allowed once every 2 years. The testing frequency can be increased to one year for patients who have rapidly progressing disease, those who are receiving or discontinuing medical therapy to restore bone mass, or have additional risk factors.
== END 2023-05-22 08:37 | disposition home or self-care (01) ==
LOC: HO.MAMMO 08:36
PROVIDERS: PCP Nurse Practitioner Family; Visit Provider Internal Medicine Medical Oncology
DX: Z13.820 Encounter for screening for osteoporosis (principal); Z78.0 Asymptomatic menopausal state; M85.80 Other specified disorders of bone density and structure, unspecified site
CPT/HCPCS: 77080

== ENCOUNTER 2023-05-28 14:03 | Outpatient (AMB) | payer OTHER, SELFPAY ==
--- NOTE | 2023-05-28 14:05 | HO.NEPHOV_ITS ---
HPI HPI Comments History of Present Illness Details Chela is a 72-year-old female with H/O hypertension for some time. She has history of inappropriate sinus tachycardia. She has past medical history significant for hypertension, bronchiectasis, solitary pulmonary nodule, osteopenia, gastric bypass, neurofibromatosis, scoliosis, chronic LBP, carpal tunnel syndrome of both hands, vitamin D deficiency, elevated PTH, and anxiety. She is on Letrozole for history of right breast cancer until July. She closely monitors her heart rate and had been fluctuant but better since she is on diltiazem 300 mg daily. She does not take excess sodium in the diet. She has history of gastric bypass and had 1 episode of profound hypokalemia which has been corrected. She was on spironolactone. She denies any coronary artery disease, congestive heart failure, carotid stenosis, peripheral arterial disease, history of renal artery stenosis or renal dysfunction. she has been feeling well overall. She has no chest discomfort at rest with activity. No shortness of breath, concerning palpitations, lightheadedness, presyncope, syncope, PND, orthopnea or edema. She reports good activity tolerance. 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 She is taking her medications as directed. Her blood pressure control is better since medicqtion change. [facility] Medical History Levoscoliosis Osteoarthritis Dyspnea Breast cancer Pulmonary nodule Surgical History History of knee replacement procedure of right knee History of knee replacement procedure of left knee S/P lumpectomy, right breast Family History Father Scoliosis Gout HTN (hypertension) CVA (cerebral vascular accident) Mother Colon cancer CHF (congestive heart failure) Anxiety Depression Migraine COPD (chronic obstructive pulmonary disease) Cancer HTN (hypertension) CVA (cerebral vascular accident) Uterine cancer Son SMA (spinal muscular atrophy) Carotid artery aneurysm Anterior horn cell disease Social History Household Members: Spouse Housing: Apartment Alcohol intake: current Alcohol intake frequency: a few times a week Alcohol type: wine Patient Tobacco Use Status: Never used Tobacco e-Cigarette/Vaping Use: Never Used service: No Current occupational status: retired Cognitive needs: No Hearing needs: No Vision needs: No Vital Signs 05/28/23 14:09 Height 5 ft 3 in Weight 214 lb BMI 37.9 BP 126/80 Blood Pressure Location Lt brachial Position Sitting Pulse 94 Pulse Source Pulse Oximeter Pulse Oximetry (%) 110 H Oxygen Delivery Method Room Air Physical Exam Vital Signs: Last Vital Signs Pulse 94 05/28/23 14:09 BP 126/80 05/28/23 14:09 Pulse Ox 110 H 05/28/23 14:09 Oxygen Delivery Method Room Air 05/28/23 14:09 BMI result Body Mass Index 37.9 Const General: comfortable and no acute distress Orientation/consciousness: patient oriented x3 HEENT Head: Yes normocephalic Mouth: Normal oral and palatal mucosa present Eyes EOM: EOMs intact bilaterally Neck Neck: Yes supple Resp Auscultation: clear to auscultation bilaterally Cardio Jugular venous distension: no JVD Rate: regular rate GI Palpation (GI): Soft to palpation Auscultation: normal bowel sounds General: Yes no CVA tenderness Back/Spine/Pelvis Back: no CVA tenderness Skin General skin exam: no rashes or lesions noted Neuro General: patient oriented x3 and moves all extremities Extrem General: Yes no pedal edema Assessment & Plan Assessment & Plan (1) Hypertension: Code(s): I10 - Essential (primary) hypertension Qualifiers: Hypertension type: primary hypertension Qualified Code(s): I10 - Essential (primary) hypertension (2) Hypercalcemia: Code(s): E83.52 - Hypercalcemia Plan Chela has hypertension for a while. She has history of tachycardia as well. She has been by Cardiology team. She has not known to have any CAD or CHF. Her renal functions are normal. Given her pulmonary condition, she is at risk for multifocal atrial tachycardia. She is tolerating diltiazem 300 mg daily. At this moment there is no recent suspect any secondary etiology for her hypertension. I discontinued her spironolactone and put her on metoprolol succinate 25 mg daily to be taken along with the diltiazem in the morning. She maintains a very good low-sodium diet. I ordered W/U for high calcium. I did not make any other changes. More than 50% of time spent discussing her issues and possible ongoing management strategies. Answered all her and her 's questions. Follow-up appointment given Orders: Orders Vitamin D 1,25 dihydroxy Today E83.52 - Hypercalcemia, I10 - Essential (primary) hypertension Vitamin D 25-OH Total Today E83.52 - Hypercalcemia, I10 - Essential (primary) hypertension Immunofixation Pnl, Serum Today E83.52 - Hypercalcemia, I10 - Essential (primary) hypertension Calcium Today E83.52 - Hypercalcemia, I10 - Essential (primary) hypertension Medications: Changed From metoprolol succinate ER 25 mg PO DAILY 30 tabs 3RF 30 days To metoprolol succinate ER 25 mg PO DAILY 90 tabs 3RF 90 days Coding Level of Care Code Est Pt Level 4 (45270) Diagnoses Primary hypertension I10 Hypertension type: primary hypertension Hypercalcemia E83.52 Results Reviewed Nephrology Results: Hgb 15.7 g/dl (12.0-16.0) 04/18/23 WBC 8.9 X10*3/uL (4.8-10.8) 04/18/23 Plt Count 325 X10*3/uL (160-400) 04/18/23 Sodium 141 mmol/L (135-145) 05/21/23 Potassium 3.8 mmol/L (3.3-5.1) 05/21/23 Chloride 99 mmol/L (96-108) 05/21/23 Carbon Dioxide 28 mmol/L (22-29) 05/21/23 BUN 8 mg/dL (9-16) L 05/21/23 Creatinine 0.81 mg/dL (0.5-1.4) 05/21/23 Calcium 10.3 mg/dL (8.4-10.2) H 04/18/23 Urine Creatinine 294.73 mg/dL 05/21/23 Protein/Creatinin Ratio 0.08 (<0.2) 05/21/23
[2023-05-28 14:09] VITALS: BP 126/80; PULSE 94; O2SAT 110; BMI 37.9
== END 2023-05-28 14:40 | disposition home or self-care (01) ==
PROVIDERS: PCP Student in an Organized Health Care Education/Training Program; Visit Provider Internal Medicine Nephrology
DX: I10 Essential (primary) hypertension (principal); E83.52 Hypercalcemia
CPT/HCPCS: 99214

== ENCOUNTER → 2023-05-28 14:03 | Outpatient (BNVA) | payer OTHER, SELFPAY | PROVIDERS: PCP Student in an Organized Health Care Education/Training Program; Visit Provider Internal Medicine Nephrology ==

== ENCOUNTER 2023-06-03 07:50 | Outpatient (AMB) | payer OTHER, SELFPAY ==
--- NOTE | 2023-06-03 07:57 | A.OFFPC_ITS ---
Vital Signs 06/03/23 07:58 06/03/23 08:16 Height 5 ft 3 in Weight 212 lb 8 oz BMI 37.6 BP 144/90 H 138/90 H Blood Pressure Location Rt brachial Rt brachial Position Sitting Sitting Respiration 14 Pulse 120 H 130 H Pulse Source Pulse Oximeter Auscultation Temp 97 F Temp Source Temporal Artery Scan Pulse Oximetry (%) 96 Oxygen Delivery Method Room Air Intake Visit Reasons: HTN, anxiety Personalization Specialist Required: No Accompanied by: Spouse Allergies adhesive Allergy (Severe, Verified 06/03/23 08:08) Rash nystatin Allergy (Intermediate, Verified 06/03/23 08:08) Hives sulfide Allergy (Intermediate, Uncoded 06/03/23 08:08) Hives Medication List - Last Reviewed 06/03/23 by Zina Montalvo MA albuterol sulfate 90 mcg/actuation 2 inhalations inhalation Q6H PRN 30 days cholecalciferol (vitamin D3) 250 mcg PO .qud diltiazem HCl 300 mg PO DAILY ibuprofen 600 mg PO Q8H PRN lactobacillus combination no.9 (Adult 50 Plus Probiotic) 4,000 mmu cells PO DAILY letrozole 2.5 mg PO DAILY metoprolol succinate ER 50 mg (2 x 25 mg) PO DAILY 90 days venlafaxine ER 37.5 mg PO DAILY 90 days vitamin B complex 1 tab PO DAILY Tobacco use date assessed: 04/01/23 Fall risk assessment: No Falls in past year Last assessed Fall Risk: 06/03/23 Dental Screening Dental Screen Date: 06/03/23 Did you have a dental visit in the last 12 months?: Yes Did you have a dental problem in the last 6 months where you did not have access to dental care?: No Was dental information given to patient?: Patient has dentist HPI HPI Comments History of Present Illness Details 72-year-old female, accompanied by her apryl putnam, presents for hypertension and anxiety follow-up She admits to taking her medications as prescribed without adverse reactions She reports controlled anxiety and depression symptoms on current treatment She offers no complaints and denies acute symptoms at this time She states that she was recently seen by Nephrology and was advised to take metoprolol 25 mg daily and vitamin D3 5000 units every other day (to prevent hypercalcemia) She notes that she has been following up with cardiology, nephrology, GI, [employer] as planned [facility] Medical History Levoscoliosis Osteoarthritis Dyspnea Breast cancer Pulmonary nodule Surgical History History of knee replacement procedure of right knee History of knee replacement procedure of left knee S/P lumpectomy, right breast Family History (Updated 06/03/23 @ 08:06 by Zina Montalvo MA) Father Scoliosis Gout HTN (hypertension) CVA (cerebral vascular accident) Mother Colon cancer CHF (congestive heart failure) Anxiety Depression Migraine COPD (chronic obstructive pulmonary disease) Cancer HTN (hypertension) CVA (cerebral vascular accident) Son SMA (spinal muscular atrophy) Carotid artery aneurysm Anterior horn cell disease Other Uterine cancer Social History Household Members: Spouse Housing: Apartment Alcohol intake: current Alcohol intake frequency: a few times a week Alcohol type: wine Patient Tobacco Use Status: Never used Tobacco e-Cigarette/Vaping Use: Never Used service: No Current occupational status: retired Cognitive needs: No Hearing needs: No Vision needs: No Questionnaire PHQ-9 Over the last 2 weeks, how often have you been bothered by any of the following problems? 1. Little interest or pleasure in doing things: not at all 2. Feeling down, depressed, or hopeless: not at all 3. Trouble falling or staying asleep, or sleeping too much: nearly every day 4. Feeling tired or having little energy: nearly every day 5. Poor appetite or overeating: not at all 6. Feeling bad about yourself - or that you are a failure or have let yourself or your family down: not at all 7. Trouble concentrating on things, such as reading the newspaper or watching television: not at all 8. Moving or speaking so slowly that other people could have noticed. Or the opposite - being so fidgety or restless that you have been moving around a lot more than usual: not at all 9. Thoughts that you would be better off or of hurting yourself in some way: not at all Total score: 6 Depression Screening Interpretation: Positive Depression Screening Follow-up: Existing condition and In treatment Depression Screening Done: Yes 50941 - PHQ-9 Billing: Yes Source: Developed by Drs. Chinmay Pedroza, Brigid Langston, Lucas Feng and colleagues, with an educational chris from [employer]. Thrive Questionnaire Date Thrive assessed: 04/01/23 DAVID-7 AMB Questionnaire DAVID-7 Date DAVID - 7 assessed: 06/03/23 Feeling nervous, anxious, or on edge: 1 = Several days Not being able to stop or control worryin = Not at all Worrying too much about different things: 1 = Several days Trouble relaxin = Several days Being so restless that it is hard to sit still: 0 = Not at all Becoming easily annoyed or irritable: 0 = Not at all Feeling afraid as if something awful might happen: 0 = Not at all Total DAVID-7 score (0-4 normal; 5-9 mild; 10-14 moderate; 15-21 severe): 3 Source: Developed by Drs. Chinmay Pedroza, Brigid Langston, Lucas Feng and colleagues, with an educational chris from [employer]. DAVID-7 Assessment Billing DAVID-7 Assessment Tool: DAVID-7 Assessment 38364 Review of Systems Const Details: Const Denies chills, Denies fatigue, Denies fever(s), Denies headache(s) and Denies weakness ENT Denies dizziness and Denies headache(s) Card Denies chest pain, Denies lightheadedness, Denies dyspnea and Denies other (Palpitations) Resp Denies cough, Denies dyspnea, Denies wheezing and Denies other ( shortness of breath) GI Denies abdominal pain, Denies melena, Denies hematochezia, Denies change in bowel habits, Denies dyspepsia and Denies nausea Denies hematuria and Denies dysuria Musc Denies abnormal gait, Denies myalgias, Denies arthralgias, Denies numbness and Denies tingling Skin/Breast Denies rash, Denies unusual bruising and Denies wounds Neuro Denies abnormal gait, Denies dizziness, Denies headache(s), Denies memory loss, Denies numbness, Denies Sensory deficit (Neuro), Denies tingling and Denies weakness Psych Denies anxiety, Denies depression, Denies memory loss Endo Denies cold intolerance, Denies fatigue, Denies heat intolerance, Denies polydipsia and Denies polyuria Aller/Immun Denies wheezing Physical exam (Primary Care) Vital Signs: Last Vital Signs Temp 97 F 06/03/23 07:58 Pulse 130 H 06/03/23 08:16 Resp 14 06/03/23 07:58 BP 138/90 H 06/03/23 08:16 Pulse Ox 96 06/03/23 07:58 Oxygen Delivery Method Room Air 06/03/23 07:58 BMI result Body Mass Index 37.6 Tobacco/Smoking Status: Tobacco use Status Tobacco use date assessed 04/01/23 06/03/23 08:07 Patient Tobacco Use Status Never used Tobacco 06/03/23 08:07 e-Cigarette/Vaping Use Never Used 06/03/23 08:07 PHQ-9: PHQ-9 Score PHQ-9: Total score 6 06/03/23 09:26 Depression Screening Interpretation: Positive Depression Screening Follow-up: Existing condition and In treatment Thrive Assessment: Date of Thrive Assessment Date Thrive assessed 04/01/23 06/03/23 08:07 Const Other: General: no acute distress and well developed Nutritional Appearance: well nourished Orientation/consciousness: patient oriented x3 HENMT Head: Yes normocephalic and Yes atraumatic Eyes General: appearance normal, both eyes and all related structures Pupils: Equal, round and reactive pupils present EOM: EOMs intact bilaterally Resp Effort & Inspection: normal respiratory effort Auscultation: clear to auscultation bilaterally Cardio Rate: regular rate Rhythm: regular rhythm Heart sounds: S1 normal heart sound present, S2 normal heart sound present, no gallops, no murmurs and no rubs GI Palpation (GI): No Abdominal aortic bruit present, Soft to palpation, nontender, No hepatosplenomegaly present and No Rebound tenderness present Auscultation: normal bowel sounds General: Yes no CVA tenderness Back/Spine/Pelvis Back: no CVA tenderness Cervical Spine: cervical ROM normal and No Cervical spine tenderness Thoracic/Lumbar Spine: thoraco-lumbar ROM normal, No pain with thoraco-lumbar ROM, No thoracic spinal tenderness and No lumbar spinal tenderness Extrem General: Yes normal to inspection, No edema and No calf tenderness Skin General: warm and dry. Normal skin color. Normal skin turgor Neuro General: patient oriented x3, gait normal and no focal neuro deficit Cranial nerves: Yes Equal, round and reactive pupils present Cognition (Neuro): normal cognition Gait exam (Neuro): Normal gait present Sensory Exam: No Sensory deficit (Neuro) Psych Appearance: grossly normal Affect: normal affect Attitude: cooperative Thought process: Normal thought process present Assessment and Plan Assessment & Plan (1) Essential hypertension: Code(s): I10 - Essential (primary) hypertension Plan: Resting blood pressure is 130/90, slightly above goal of less than 140/90, heart rate is 130 Will increase metoprolol to 50 mg daily. Take as prescribed Will decrease venlafaxine to 37.5 mg daily from 75 mg daily as this may be contributing to elevated BP Continue to take diltiazem as prescribed Low-sodium diet encouraged Follow-up in 1 month or return sooner with symptoms or concerns Verbalized understanding and agreed with treatment plan (2) Anxiety: Code(s): F41.9 - Anxiety disorder, unspecified Plan: Reports controlled anxiety symptoms PHQ-9 score revealed mild depression. DAVID-7 score is normal Venlafaxine decreased to 37.5 mg daily for better blood pressure control Routine exercise encouraged Follow-up in 1 month or return sooner with worsening or new symptoms Verbalized understanding and agreed with treatment plan Medications: New venlafaxine ER 37.5 mg PO DAILY 90 days 90 caps 1RF Changed From metoprolol succinate ER 25 mg PO DAILY 90 days 90 tabs 3RF To metoprolol succinate ER 50 mg (2 x 25 mg) PO DAILY 90 days 180 tabs 3RF Discontinued venlafaxine ER Discontinued Reason: Doctor's Order 75 mg PO DAILY 90 days 90 caps 1RF hot flashes Coding Level of Care Code Est Pt Level 4 (08319) Diagnoses Essential hypertension I10 Anxiety F41.9 Additional Codes DAVID-7 Assessment Billing - DAVID-7 Assessment Tool: DAVID-7 Assessment 56520 ([id number])
[2023-06-03 07:58] VITALS: BP 144/90; PULSE 120; RESP 14; TEMP 36.1; O2SAT 96; BMI 37.6
[2023-06-03 08:16] VITALS: BP 138/90; PULSE 130
== END 2023-06-03 08:35 | disposition home or self-care (01) ==
PROVIDERS: PCP Nurse Practitioner Family; Visit Provider Nurse Practitioner Family
DX: I10 Essential (primary) hypertension (principal); F41.9 Anxiety disorder, unspecified
CPT/HCPCS: 99214

== ENCOUNTER 2023-06-05 08:53 | Outpatient (AMB) | payer OTHER, SELFPAY ==
--- NOTE | 2023-06-05 09:06 | A.OFFVIS_ITS ---
Intake Vital Signs 06/05/23 09:10 Height 5 ft 3 in Weight 211 lb 10.3 oz BMI 37.5 BP 142/66 H Blood Pressure Location Lt brachial Position Sitting Pulse 103 H Intake Visit Reasons: Colonoscopy Screening Intake Note: Chela presents in the office as a colonoscopy screening. CC: She states that she is just due for a colonoscopy - states she is a year behind. Allergies adhesive Allergy (Severe, Verified 06/05/23 09:11) Rash nystatin Allergy (Intermediate, Verified 06/05/23 09:11) Hives sulfide Allergy (Intermediate, Uncoded 06/05/23 09:11) Hives HPI Colonoscopy Screening HPI Details 72-year-old female here for preprocedura l meeting to discuss a screen ing colonoscopy. She is [place] by Wesley Sales [place] [facility] [place] PMX ASTHMA/BRONCHIETASIS Hypertension high cholesterol neurofibromatosis Cystocele with rectocele History of right breast cancer Osteopenia Anxiety Sinus tachycardia Severe levo scoliosis CARPAL TUNNEL SYNDROME * SURGICAL HISTORY Right total replacement Left total knee replacement Lumpectomy RIGHT AND LEFT breast GASTRIC BYPASS CHOLECYSTECTOMY * ALLERGIES Nystatin - hives SULFA - hives Adhesive - redness * [facility] Laboratory Tests 04/18/23 13:54 WBC 8.9 Hgb 15.7 Hct 46.8 Plt Count 325 Total Bilirubin 0.6 AST 21 ALT 21 Alkaline Phosphata se 61 TODAY'S VISIT She has had multiple prior scopes in past since 2002 and all were well tolerated. She has IBS-M that she manages with BRAT during the diarrheal phase, no upper GI problems. There are no prior problems with anesthesia or sedation. She has well controlled asthma and bronchiectasis, and sinus tachycardia well co ntrolled with metoprolol. No ID problems. Her mother had CRC in her 70's and a maternal aunt as well and the patient is having genetic testing for CRC with results pending. PFSH Medical History Levoscoliosis Osteoarthritis Dyspnea Breast cancer Pulmonary nodule Surgical History Hx of colonoscopy History of knee replacement procedure of right knee History of knee replacement procedure of left knee S/P lumpectomy, right breast Family History Father Scoliosis Gout HTN (hypertension) CVA (cerebral vascular accident) Mother Colon cancer CHF (congestive heart failure) Anxiety Depression Migraine COPD (chronic obstructive pulmonary disease) Cancer HTN (hypertension) CVA (cerebral vascular accident) Son SMA (spinal muscular atrophy) Carotid artery aneurysm Anterior horn cell disease Other Uterine cancer Social History Household Members: Spouse Housing: Apartment Alcohol intake: current Alcohol intake frequency: a few times a week Alcohol type: wine Patient Tobacco Use Status: Never used Tobacco e-Cigarette/Vaping Use: Never Used service: No Current occupational status: retired Cognitive needs: No Hearing needs: No Vision needs: No Review of Systems Const Denies fatigue, Denies fever(s), Denies night sweats, Denies poor appetite and Denies weight loss Eyes Details: glasses Reports requires corrective lenses ENT Reports Normal hearing present, Denies dental pain, Denies dysphagia, Denies hearing loss, Denies mouth pain, Denies odynophagia, Denies throat swelling, Denies tongue swelling and Reports other (Dentition adequate) GI Details: Denies abdominal pain, Denies melena, Denies bloating, Denies hematochezia, Denies constipation, Denies GI cramping, Denies dysphagia, Denies excessive flatus, Denies early satiety, Denies heartburn, Denies diarrhea, Denies nausea, Denies odynophagia, Denies vomiting and Denies hematemesis Skin/Breast Denies pruritus, Denies lesions, Denies rash and Denies jaundice Neuro Reports Normal hearing present and Denies Abnormal speech present Endo Denies fatigue Aller/Immun Denies throat swelling and Denies tongue swelling Physical Exam Vital Signs: Last Vital Signs Pulse 103 H 06/05/23 09:10 BP 142/66 H 06/05/23 09:10 BMI result Body Mass Index 37.5 Const General: cooperative, no acute distress, well developed and well groomed Nutritional Appearance: well nourished, obese and overweight Orientation/consciousness: oriented to person, oriented to place and oriented to time Limitations: No language barrier, ambulation with cane, ambulation with walker and wheelchair HEENT Head: Yes normocephalic and Yes atraumatic Eyes General: appearance normal, both eyes and all related structures Pupils: Equal, round and reactive pupils present Neck Neck: Yes normal visual inspection and Yes no lymphadenopathy Thyroid: Thyroid normal Resp Effort & Inspection: normal respiratory effort and able to speak in complete sentences Auscultation: clear to auscultation bilaterally Cardio Rate: regular rate Rhythm: regular rhythm Heart sounds: Normal, physiologic split S2 sound present Peripheral pulses: radial pulses present and posterior tibial pulses present GI Inspection: No distended and No Abdominal panniculus present Palpation (GI): Soft to palpation, nontender, no guarding, not rigid, No hepatosplenomegaly present and Hepatosplenomegaly present Percussion: Yes normal to percussion Auscultation: normal bowel sounds Rectal Exam - Female: deferred Skin General skin exam: no rashes or lesions noted, turgor normal, skin not dry, no jaundice, No spider nevi and no striae Rashes: no rashes Nails: normal Neuro General: oriented to person, oriented to place and oriented to time Cranial nerves: Yes Equal, round and reactive pupils present and Yes Normal hearing present Speech: No Abnormal speech present Extrem General: Yes normal to inspection, No clubbing, No cyanosis and No edema Psych Thought process: Normal thought process present and not confabulating Thought content: Normal thought content present Insight: Good insight present (Psych) Judgement: Good judgement present (Psych) Results Reviewed Results Reviewed: Laboratory Tests 04/18/23 13:54 WBC 8.9 Hgb 15.7 Hct 46.8 Plt Count 325 Total Bilirubin 0.6 AST 21 ALT 21 Alkaline Phosphatase 61 Assessment & Plan Assessment & Plan (1) Pre-op examination: Code(s): Z01.818 - Encounter for other preprocedural examination (2) Tubular adenoma of colon: Code(s): D12.6 - Benign neoplasm of colon, unspecified (3) Family history of colon cancer in mother: Code(s): Z80.0 - Family history of malignant neoplasm of digestive organs Plan She has had multiple prior scopes in past since 2002 and all were well tolerated. She has IBS-M that she manages with BRAT during the diarrheal phase, no upper GI problems. There are no prior problems with anesthesia or sedation. She has well controlled asthma and bronchiectasis, and sinus tachycardia well controlled with metoprolol. No ID problems. Her mother had CRC in her 70's and a maternal aunt as well and the patient is having genetic testing for CRC with results pending. Orders: Orders Colonoscopy - GI Use Only Today D12.6 - Benign neoplasm of colon, unspecified, Z01.818 - Encounter for other preprocedural examination Medications: New bisacodyl (Dulcolax (bisacodyl)) 10 mg (2 x 5 mg) PO BEDTIME 2 days 4 tabs 0RF sodium,potassium,mag sulfates 17.5-3.13-1.6 gram (Suprep Bowel Prep Kit) 480 mL orally; FOR COLONOSCOPY PREP 354 mL 0RF Coding Level of Care Code New Pt Level 3 (53576) Diagnoses Pre-op examination Z01.818 Tubular adenoma of colon D12.6 Family history of colon cancer in mother Z80.0
[2023-06-05 09:10] VITALS: BP 142/66; PULSE 103; BMI 37.5
== END 2023-06-05 09:43 | disposition home or self-care (01) ==
PROVIDERS: PCP Nurse Practitioner Family; Visit Provider Nurse Practitioner
DX: Z01.818 Encounter for other preprocedural examination (principal); Z12.11 Encounter for screening for malignant neoplasm of colon; Z80.0 Family history of malignant neoplasm of digestive organs
CPT/HCPCS: S0285

== ENCOUNTER → 2023-06-05 08:53 | Outpatient (BNVA) | payer OTHER, SELFPAY | PROVIDERS: PCP Nurse Practitioner Family; Visit Provider Nurse Practitioner ==

== ENCOUNTER 2023-07-08 08:00 | Outpatient (AMB) | payer OTHER, SELFPAY ==
[2023-07-08 08:03] VITALS: BP 168/92; PULSE 127; RESP 15; TEMP 36.4; O2SAT 98; BMI 38.7
--- NOTE | 2023-07-08 08:03 | MHC.PC.OV ---
Vital Signs 07/08/23 08:03 07/08/23 08:19 07/08/23 08:20 Height 5 ft 3 in Weight 218 lb 6 oz BMI 38.7 BP 168/92 H 160/90 H 160/90 H Blood Pressure Location Rt brachial Rt brachial Lt brachial Position Sitting Sitting Sitting Respiration 15 Pulse 127 H 112 H Pulse Source Pulse Oximeter Auscultation Temp 97.5 F Temp Source Temporal Artery Scan Pulse Oximetry (%) 98 Oxygen Delivery Method Room Air Intake Visit Reasons: 4 week follow up Retail Operations Specialist Required: No Accompanied by: Spouse Allergies adhesive Allergy (Severe, Verified 07/08/23 08:15) Rash nystatin Allergy (Intermediate, Verified 07/08/23 08:15) Hives sulfide Allergy (Intermediate, Uncoded 07/08/23 08:15) Hives Medication List - Last Reconciled 07/08/23 by Wesley Sales CNP albuterol sulfate 90 mcg/actuation 2 inhalations inhalation Q6H PRN 30 days bisacodyl (Dulcolax (bisacodyl)) 10 mg (2 x 5 mg) PO BEDTIME 2 days cholecalciferol (vitamin D3) 250 mcg PO .qud diltiazem HCl CD 300 mg PO DAILY ibuprofen 600 mg PO Q8H PRN lactobacillus combination no.9 (Adult 50 Plus Probiotic) 4,000 mmu cells PO DAILY metoprolol succinate ER 50 mg (2 x 25 mg) PO DAILY 90 days sodium,potassium,mag sulfates 17.5-3.13-1.6 gram (Suprep Bowel Prep Kit) 480 mL orally; FOR COLONOSCOPY PREP venlafaxine ER 37.5 mg PO DAILY 90 days vitamin B complex 1 tab PO DAILY Tobacco use date assessed: 04/01/23 Fall risk assessment: No Falls in past year Last assessed Fall Risk: 07/08/23 Dental Screening Dental Screen Date: 06/03/23 HPI HPI Comments History of Present Illness Details 72-year-old female, accompanied by her , presents for hypertension and anxiety follow-up She admits to taking her medications as prescribed without adverse reactions She notes that her home blood pressure readings average 140s/90s. However, her blood pressure at the oncologist's office a few days ago was 179/77 She reports controlled anxiety and depression symptoms on current treatment regimen She offers no complaints and denies acute symptoms at this time [facility] Medical History Levoscoliosis Osteoarthritis Dyspnea Breast cancer Pulmonary nodule Surgical History Hx of colonoscopy History of knee replacement procedure of right knee History of knee replacement procedure of left knee S/P lumpectomy, right breast Family History Father Scoliosis Gout HTN (hypertension) CVA (cerebral vascular accident) Mother Colon cancer CHF (congestive heart failure) Anxiety Depression Migraine COPD (chronic obstructive pulmonary disease) Cancer HTN (hypertension) CVA (cerebral vascular accident) Son SMA (spinal muscular atrophy) Carotid artery aneurysm Anterior horn cell disease Other Uterine cancer Social History (Updated 07/08/23 @ 08:12 by ELBA Whitlock) Household Members: Spouse Both parents involved: No Caregiver staying overnight: No Housing: Apartment Are you a primary customer care consultant to a significant other at home: No Do you presently have visiting nurse or other home services: No Alcohol intake: current Alcohol intake frequency: a few times a week Alcohol type: wine Patient Tobacco Use Status: Never used Tobacco e-Cigarette/Vaping Use: Never Used service: No Current occupational status: retired Cognitive needs: No Hearing needs: No Vision needs: No Questionnaire PHQ-9 Over the last 2 weeks, how often have you been bothered by any of the following problems? 1. Little interest or pleasure in doing things: not at all 2. Feeling down, depressed, or hopeless: not at all 3. Trouble falling or staying asleep, or sleeping too much: not at all 4. Feeling tired or having little energy: not at all 5. Poor appetite or overeating: not at all 6. Feeling bad about yourself - or that you are a failure or have let yourself or your family down: not at all 7. Trouble concentrating on things, such as reading the newspaper or watching television: not at all 8. Moving or speaking so slowly that other people could have noticed. Or the opposite - being so fidgety or restless that you have been moving around a lot more than usual: not at all 9. Thoughts that you would be better off or of hurting yourself in some way: not at all Total score: 0 Depression Screening Interpretation: Negative Depression Screening Done: Yes 00776 - PHQ-9 Billing: Yes Source: Developed by Drs. Chinmay Pedroza, Brigid Langston, Lucas Feng and colleagues, with an educational chris from [employer]. Thrive Questionnaire Date Thrive assessed: 04/01/23 DAVID-7 AMB Questionnaire DAVID-7 Date DAVID - 7 assessed: 07/08/23 Feeling nervous, anxious, or on edge: 0 = Not at all Not being able to stop or control worryin = Not at all Worrying too much about different things: 0 = Not at all Trouble relaxin = Not at all Being so restless that it is hard to sit still: 0 = Not at all Becoming easily annoyed or irritable: 0 = Not at all Feeling afraid as if something awful might happen: 0 = Not at all Total DAVID-7 score (0-4 normal; 5-9 mild; 10-14 moderate; 15-21 severe): 0 Source: Developed by Drs. Chinmay Pedroza, Brigid Langston, Lucas Feng and colleagues, with an educational chris from [employer]. Review of Systems Const Details: Const Denies chills, Denies fatigue, Denies fever(s), Denies headache(s) and Denies weakness ENT Denies dizziness and Denies headache(s) Card Denies chest pain, Denies lightheadedness, Denies dyspnea and Denies other (Palpitations) Resp Denies cough, Denies dyspnea, Denies wheezing and Denies other ( shortness of breath) GI Denies abdominal pain, Denies melena, Denies hematochezia, Denies change in bowel habits, Denies dyspepsia and Denies nausea Denies hematuria and Denies dysuria Musc Denies abnormal gait, Denies myalgias, Denies arthralgias, Denies numbness and Denies tingling Skin/Breast Denies rash, Denies unusual bruising and Denies wounds Neuro Denies abnormal gait, Denies dizziness, Denies headache(s), Denies memory loss, Denies numbness, Denies Sensory deficit (Neuro), Denies tingling and Denies weakness Psych Denies anxiety, Denies depression, Denies memory loss Endo Denies cold intolerance, Denies fatigue, Denies heat intolerance, Denies polydipsia and Denies polyuria Aller/Immun Denies wheezing Physical exam (Primary Care) Vital Signs: Last Vital Signs Temp 97.5 F 07/08/23 08:03 Pulse 112 H 07/08/23 08:20 Resp 15 07/08/23 08:03 BP 160/90 H 07/08/23 08:20 Pulse Ox 98 07/08/23 08:03 Oxygen Delivery Method Room Air 07/08/23 08:03 BMI result Body Mass Index 38.7 Tobacco/Smoking Status: Tobacco use Status Tobacco use date assessed 04/01/23 07/08/23 08:12 Patient Tobacco Use Status Never used Tobacco 07/08/23 08:12 e-Cigarette/Vaping Use Never Used 07/08/23 08:12 PHQ-9: PHQ-9 Score PHQ-9: Total score 0 07/08/23 08:15 Depression Screening Interpretation: Negative Thrive Assessment: Date of Thrive Assessment Date Thrive assessed 04/01/23 07/08/23 08:12 Const Other: General: no acute distress and well developed Nutritional Appearance: well nourished Orientation/consciousness: patient oriented x3 HENMT Head: Yes normocephalic and Yes atraumatic Eyes General: appearance normal, both eyes and all related structures Pupils: Equal, round and reactive pupils present EOM: EOMs intact bilaterally Resp Effort & Inspection: normal respiratory effort Auscultation: clear to auscultation bilaterally Cardio Rate: regular rate Rhythm: regular rhythm Heart sounds: S1 normal heart sound present, S2 normal heart sound present, no gallops, no murmurs and no rubs GI Palpation (GI): No Abdominal aortic bruit present, Soft to palpation, nontender, No hepatosplenomegaly present and No Rebound tenderness present Auscultation: normal bowel sounds General: Yes no CVA tenderness Back/Spine/Pelvis Back: no CVA tenderness Cervical Spine: cervical ROM normal and No Cervical spine tenderness Thoracic/Lumbar Spine: thoraco-lumbar ROM normal, No pain with thoraco-lumbar ROM, No thoracic spinal tenderness and No lumbar spinal tenderness Extrem General: Yes normal to inspection, No edema and No calf tenderness Skin General: warm and dry. Normal skin color. Normal skin turgor Neuro General: patient oriented x3, gait normal and no focal neuro deficit Cranial nerves: Yes Equal, round and reactive pupils present Cognition (Neuro): normal cognition Gait exam (Neuro): Normal gait present Sensory Exam: No Sensory deficit (Neuro) Psych Appearance: grossly normal Affect: normal affect Attitude: cooperative Thought process: Normal thought process present Assessment and Plan Assessment & Plan (1) Essential hypertension: Code(s): I10 - Essential (primary) hypertension Plan: Resting blood pressure is 160/90, above goal of less than 140/90. Heart rate is 112, above goal of less than 100 Will increase metoprolol to 75 mg daily. Take as prescribed Continue to take diltiazem 300 mg daily Continue to monitor home blood pressure readings, record readings, and bring to next appointment. Go to the ED with persistently elevated BP readings above 160 with associated headache, dizziness, visual disturbances, nausea, vomiting Follow-up in 1 week or return sooner with symptoms or concerns Verbalized understanding and agreed with treatment plan (2) Anxiety: Code(s): F41.9 - Anxiety disorder, unspecified Plan: Controlled She is on venlafaxine for vasomotor symptoms. Continue to take as prescribed Routine exercise encouraged Follow-up with symptoms or concerns Verbalized understanding and agreed with the plan Medications: Changed From metoprolol succinate ER 50 mg (2 x 25 mg) PO DAILY 90 days 180 tabs 3RF To metoprolol succinate ER 75 mg (3 x 25 mg) PO DAILY 90 days 270 tabs 1RF Discontinued metoprolol succinate ER Discontinued Reason: Doctor's Order 50 mg (2 x 25 mg) PO DAILY 90 days 180 tabs 3RF Coding Level of Care Code Est Pt Level 4 (70414) Complex EM visit Add On G2211 Diagnoses Essential hypertension I10 Anxiety F41.9
[2023-07-08 08:19] VITALS: BP 160/90
[2023-07-08 08:20] VITALS: BP 160/90; PULSE 112
== END 2023-07-08 09:05 | disposition home or self-care (01) ==
PROVIDERS: PCP Student in an Organized Health Care Education/Training Program; Visit Provider Nurse Practitioner Family
DX: I10 Essential (primary) hypertension (principal); F41.9 Anxiety disorder, unspecified
CPT/HCPCS: 99214; G2211

== ENCOUNTER 2023-07-15 09:31 | Outpatient (AMB) | payer OTHER, SELFPAY ==
--- NOTE | 2023-07-15 09:39 | A.OFFPC_ITS ---
Vital Signs 07/15/23 09:40 Height 5 ft 3 in Weight 218 lb 6 oz BMI 38.7 BP 148/80 H Blood Pressure Location Rt brachial Position Sitting Respiration 14 Pulse 101 H Pulse Source Pulse Oximeter Temp 97.7 F Temp Source Temporal Artery Scan Pulse Oximetry (%) 96 Oxygen Delivery Method Room Air Intake Visit Reasons: follow up htn Commission Specialist Required: No Accompanied by: Self / Same As Patient Allergies adhesive Allergy (Severe, Verified 07/15/23 10:04) Rash nystatin Allergy (Intermediate, Verified 07/15/23 10:04) Hives sulfide Allergy (Intermediate, Uncoded 07/15/23 10:04) Hives Medication List - Last Reconciled 07/15/23 by Wesley Sales CNP albuterol sulfate 90 mcg/actuation 2 inhalations inhalation Q6H PRN 30 days bisacodyl (Dulcolax (bisacodyl)) 10 mg (2 x 5 mg) PO BEDTIME 2 days cholecalciferol (vitamin D3) 250 mcg PO .qud diltiazem HCl CD 300 mg PO DAILY ibuprofen 600 mg PO Q8H PRN lactobacillus combination no.9 (Adult 50 Plus Probiotic) 4,000 mmu cells PO DAILY metoprolol succinate ER 75 mg (3 x 25 mg) PO DAILY 90 days sodium,potassium,mag sulfates 17.5-3.13-1.6 gram (Suprep Bowel Prep Kit) 480 mL orally; FOR COLONOSCOPY PREP venlafaxine ER 37.5 mg PO DAILY 90 days vitamin B complex 1 tab PO DAILY Tobacco use date assessed: 07/15/23 Fall risk assessment: No Falls in past year Last assessed Fall Risk: 07/15/23 Dental Screening Dental Screen Date: 06/03/23 HPI HPI Comments History of Present Illness Details 72-year-old female, accompanied by her h usband, presents for hypertens ion follow-up She admits to taking her medications as prescribed without adverse reactions She reports controlled anxiety symptoms. She notes that her symptoms significantly improved since her last visit. She reports adequate night sleep She offers no complaints and denies acute symptoms at this time She reports average home blood pressure readings of 137/90s in the past 1 week PFSH Medical History Levoscoliosis Osteoarthritis Dyspnea Breast cancer Pulmonary nodule Surgical History Hx of colonoscopy History of knee replacement procedure of right knee History of knee replacement procedure of left knee S/P lumpectomy, right breast Family History Father Scoliosis Gout HTN (hypertension) CVA (cerebral vascular accident) Mother Colon cancer CHF (congestive heart failure) Anxiety Depression Migraine COPD (chronic obstructive pulmonary disease) Cancer HTN (hypertension) CVA (cerebral vascular accident) Son SMA (spinal muscular atrophy) Carotid artery aneurysm Anterior horn cell disease Other Uterine cancer Social History Household Members: Spouse Both parents involved: No Caregiver staying overnight: No Housing: Apartment Are you a primary ambulatory care coordinator to a significant other at home: No Do you presently have visiting nurse or other home services: No Alcohol intake: current Alcohol intake frequency: a few times a week Alcohol type: wine Patient Tobacco Use Status: Never used Tobacco e-Cigarette/Vaping Use: Never Used service: No Current occupational status: retired Cognitive needs: No Hearing needs: No Vision needs: No Questionnaire Thrive Questionnaire Date Thrive assessed: 04/01/23 DAVID-7 AMB Questionnaire DAVID-7 Date DAVID - 7 assessed: 07/08/23 Source: Developed by Drs. Chinmay Pedroza, Brigid Langston, Lucas Feng and colleagues, with an educational chris from [employer]. Review of Systems Const Details: Const Denies chills, Denies fatigue, Denies fever(s), Denies headache(s) and Denies weakness ENT Denies dizziness and Denies headache(s) Card Denies chest pain, Denies lightheadedness, Denies dyspnea and Denies other (Palpitations) Resp Denies cough, Denies dyspnea, Denies wheezing and Denies other ( shortness of breath) GI Denies abdominal pain, Denies melena, Denies hematochezia, Denies change in bowel habits, Denies dyspepsia and Denies nausea Denies hematuria and Denies dysuria Musc Denies abnormal gait, Denies myalgias, Denies arthralgias, Denies numbness and Denies tingling Skin/Breast Denies rash, Denies unusual bruising and Denies wounds Neuro Denies abnormal gait, Denies dizziness, Denies headache(s), Denies memory loss, Denies numbness, Denies Sensory deficit (Neuro), Denies tingling and Denies weakness Psych Denies anxiety, Denies depression, Denies memory loss Endo Denies cold intolerance, Denies fatigue, Denies heat intolerance, Denies p olydipsia and Denies polyuria Aller/Immun Denies wheezing Physical exam (Primary Care) Vital Signs: Last Vital Signs Temp 97.7 F 07/15/23 09:40 Pulse 101 H 07/15/23 09:40 Resp 14 07/15/23 09:40 BP 148/80 H 07/15/23 09:40 Pulse Ox 96 07/15/23 09:40 Oxygen Delivery Method Room Air 07/15/23 09:40 BMI result Body Mass Index 38.7 Tobacco/Smoking Status: Tobacco use Status Tobacco use date assessed 07/15/23 07/15/23 09:48 Patient Tobacco Use Status Never used Tobacco 07/15/23 09:48 e-Cigarette/Vaping Use Never Used 07/15/23 09:48 Thrive Assessment: Date of Thrive Assessment Date Thrive assessed 04/01/23 07/15/23 09:48 Const Other: General: no acute distress and well developed Nutritional Appearance: well nourished Orientation/consciousness: patient oriented x3 HENMT Head: Yes normocephalic and Yes atraumatic Eyes General: appearance normal, both eyes and all related structures Pupils: Equal, round and reactive pupils present EOM: EOMs intact bilaterally Resp Effort & Inspection: normal respiratory effort Auscultation: clear to auscultation bilaterally Cardio Rate: regular rate Rhythm: regular rhythm Heart sounds: S1 normal heart sound present, S2 normal heart sound present, no gallops, no murmurs and no rubs GI Palpation (GI): No Abdominal aortic bruit present, Soft to palpation, nontender, No hepatosplenomegaly present and No Rebound tenderness present Auscultation: normal bowel sounds General: Yes no CVA tenderness Back/Spine/Pelvis Back: no CVA tenderness Cervical Spine: cervical ROM normal and No Cervical spine tenderness Thoracic/Lumbar Spine: thoraco-lumbar ROM normal, No pain with thoraco-lumbar ROM, No thoracic spinal tenderness and No lumbar spinal tenderness Extrem General: Yes normal to inspection, No edema and No calf tenderness Skin General: warm and dry. Normal skin color. Normal skin turgor Neuro General: patient oriented x3, gait normal and no focal neuro deficit Cranial nerves: Yes Equal, round and reactive pupils present Cognition (Neuro): normal cognition Gait exam (Neuro): Normal gait present Sensory Exam: No Sensory deficit (Neuro) Psych Appearance: grossly normal Affect: normal affect Attitude: cooperative Thought process: Normal thought process present Assessment and Plan Assessment & Plan (1) Essential hypertension: Code(s): I10 - Essential (primary) hypertension Plan: Resting blood pressure is 140/80, above goal of less than 140/80. Continue to take diltiazem and metoprolol as prescribed. She notes she is on venlafaxine for vasomotor symptoms. However, she does not think she needs to continue to take the medication. She denies vasomotor symptoms. Venlafaxine may be contributing to her elevated blood pressure. White coat syndrome is also possible due to controlled blood pressure readings at home. Will start escitalopram 10 mg daily for anxiety. Instructed on the risks, benefits, and potential adverse reactions of the medication. Advised to take the medication as prescribed. Encouraged to continue to take venlafaxine 37.5 mg daily and stop after 1 week; instructed on potential withdrawal symptoms such as dizziness, nausea, and mood changes while coming off venlafaxine. Encouraged to continue to monitor blood pressure and report readings consistently above 150/90 with or without associated symptoms Advised to follow-up three weeks or return sooner with symptoms or concerns Verbalized understanding and agreed with treatment plan (2) Anxiety: Code(s): F41.9 - Anxiety disorder, unspecified Plan: Reports controlled anxiety symptoms Escitalopram 10 mg daily ordered. Take as prescribed Continue to take venlafaxine 37.5 mg and stop after 1 week Follow-up in 3 weeks or return sooner with symptoms or concerns Verbalized understanding and agreed with treatment plan Coding Level of Care Code Est Pt Level 4 (58613) Complex EM visit Add On G2211 Diagnoses Essential hypertension I10 Anxiety F41.9
[2023-07-15 09:40] VITALS: BP 148/80; PULSE 101; RESP 14; TEMP 36.5; O2SAT 96; BMI 38.7
== END 2023-07-15 10:20 | disposition home or self-care (01) ==
PROVIDERS: PCP Nurse Practitioner Family; Visit Provider Nurse Practitioner Family
DX: I10 Essential (primary) hypertension (principal); F41.9 Anxiety disorder, unspecified
CPT/HCPCS: 99214; G2211

== ENCOUNTER 2023-08-05 11:04 | Outpatient (AMB) | payer OTHER, SELFPAY ==
--- NOTE | 2023-08-05 11:11 | MHC.PC.OV ---
Vital Signs 08/05/23 11:12 08/05/23 11:34 Height 5 ft 3 in Weight 220 lb BMI 39.0 BP 164/88 H 140/84 H Blood Pressure Location Rt brachial Rt brachial Position Sitting Sitting Respiration 15 Pulse 95 80 Pulse Source Pulse Oximeter Auscultation Temp 97 F Temp Source Temporal Artery Scan Pulse Oximetry (%) 93 Oxygen Delivery Method Room Air Intake Visit Reasons: 3 wks HTN, anxiety Intake Note: Patient needs refill on metoprolol. 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: No Accompanied by: Spouse Allergies adhesive Allergy (Severe, Verified 08/05/23 11:24) Rash nystatin Allergy (Intermediate, Verified 08/05/23 11:24) Hives sulfide Allergy (Intermediate, Uncoded 08/05/23 11:24) Hives Medication List - Last Reconciled 08/05/23 by Wesley Sales CNP albuterol sulfate 90 mcg/actuation 2 inhalations inhalation Q6H PRN 30 days bisacodyl (Dulcolax (bisacodyl)) 10 mg (2 x 5 mg) PO BEDTIME 2 days cholecalciferol (vitamin D3) 250 mcg PO .qud diltiazem HCl CD 300 mg PO DAILY escitalopram oxalate 10 mg PO DAILY 30 days ibuprofen 600 mg PO Q8H PRN lactobacillus combination no.9 (Adult 50 Plus Probiotic) 4,000 mmu cells PO DAILY metoprolol succinate ER 75 mg (3 x 25 mg) PO DAILY 90 days sodium,potassium,mag sulfates 17.5-3.13-1.6 gram (Suprep Bowel Prep Kit) 480 mL orally; FOR COLONOSCOPY PREP venlafaxine ER 37.5 mg PO DAILY 90 days vitamin B complex 1 tab PO DAILY Tobacco use date assessed: 07/15/23 Dental Screening Dental Screen Date: 06/03/23 HPI HPI Comments History of Present Illness Details 72-year-old female, accompanied by her , presents for hypertension and anxiety follow-up She admits to taking her medications as prescribed without adverse reactions. She stopped taking venlafaxine as instructed She reports controlled anxiety symptoms. She reports adequate night sleep She offers no complaints and denies acute symptoms at this time She reports average home systolic blood pressure readings between 130 and 140 PFSH Medical History Levoscoliosis Osteoarthritis Dyspnea Breast cancer Pulmonary nodule Surgical History Hx of colonoscopy History of knee replacement procedure of right knee History of knee replacement procedure of left knee S/P lumpectomy, right breast Family History Father Scoliosis Gout HTN (hypertension) CVA (cerebral vascular accident) Mother Colon cancer CHF (congestive heart failure) Anxiety Depression Migraine COPD (chronic obstructive pulmonary disease) Cancer HTN (hypertension) CVA (cerebral vascular accident) Son SMA (spinal muscular atrophy) Carotid artery aneurysm Anterior horn cell disease Other Uterine cancer Social History Household Members: Spouse Both parents involved: No Caregiver staying overnight: No Housing: Apartment Are you a primary housekeeper child care to a significant other at home: No Do you presently have visiting nurse or other home services: No Alcohol intake: current Alcohol intake frequency: a few times a week Alcohol type: wine Patient Tobacco Use Status: Never used Tobacco e-Cigarette/Vaping Use: Never Used service: No Current occupational status: retired Cognitive needs: No Hearing needs: No Vision needs: No Questionnaire PHQ-9 Over the last 2 weeks, how often have you been bothered by any of the following problems? 1. Little interest or pleasure in doing things: not at all 2. Feeling down, depressed, or hopeless: not at all 3. Trouble falling or staying asleep, or sleeping too much: not at all 4. Feeling tired or having little energy: not at all 5. Poor appetite or overeating: not at all 6. Feeling bad about yourself - or that you are a failure or have let yourself or your family down: not at all 7. Trouble concentrating on things, such as reading the newspaper or watching television: not at all 8. Moving or speaking so slowly that other people could have noticed. Or the opposite - being so fidgety or restless that you have been moving around a lot more than usual: not at all 9. Thoughts that you would be better off or of hurting yourself in some way: not at all Total score: 0 Depression Screening Interpretation: Negative Depression Screening Done: Yes 33907 - PHQ-9 Billing: Yes Source: Developed by Drs. Chinmay Pedroza, Brigid Langston, Lucas Feng and colleagues, with an educational chris from [employer]. Thrive Questionnaire Date Thrive assessed: 08/05/23 I am a: Patient What is your living situation today?: I have a steady place to live Within the past 12 months, did the food you bought not last and you didn't have the money to get more?: Never true Within the past 12 months, did you worry whether your food would run out before you got money to buy more?: Never true Do you have trouble paying for medicines?: No Do you have trouble getting transportation to medical appointments?: No Do you have trouble paying your heating and electricity bill?: No Do you have trouble taking care of your child, family member or friend?: No Do you have trouble with day-to-day activities such as bathing, preparing meals, shopping, managing finances, etc.?: Yes Are you currently unemployed and looking for a job?: No Are you interested in more education?: No Please select the resources that you would like help with: Daily support Currently or been in a relationship where the following occur: no concerns reported THRIVE Score: 0 DAVID-7 AMB Questionnaire DAVID-7 Date DAVID - 7 assessed: 08/05/23 Feeling nervous, anxious, or on edge: 0 = Not at all Not being able to stop or control worryin = Not at all Worrying too much about different things: 0 = Not at all Trouble relaxin = Not at all Being so restless that it is hard to sit still: 0 = Not at all Becoming easily annoyed or irritable: 0 = Not at all Feeling afraid as if something awful might happen: 0 = Not at all Total DAVID-7 score (0-4 normal; 5-9 mild; 10-14 moderate; 15-21 severe): 0 Source: Developed by Drs. Chinmay Pedroza, Brigid Langston, Lucas Feng and colleagues, with an educational chris from [employer]. DAVID-7 Assessment Billing DAVID-7 Assessment Tool: DAVID-7 Assessment 37086 Review of Systems Const Details: Const Denies chills, Denies fatigue, Denies fever(s), Denies headache(s) and Denies weakness ENT Denies dizziness and Denies headache(s) Card Denies chest pain, Denies lightheadedness, Denies dyspnea and Denies other (Palpitations) Resp Denies cough, Denies dyspnea, Denies wheezing and Denies other ( shortness of breath) GI Denies abdominal pain, Denies melena, Denies hematochezia, Denies change in bowel habits, Denies dyspepsia and Denies nausea Denies hematuria and Denies dysuria Musc Denies abnormal gait, Denies myalgias, Denies arthralgias, Denies numbness and Denies tingling Skin/Breast Denies rash, Denies unusual bruising and Denies wounds Neuro Denies abnormal gait, Denies dizziness, Denies headache(s), Denies memory loss, Denies numbness, Denies Sensory deficit (Neuro), Denies tingling and Denies weakness Psych Denies anxiety, Denies depression, Denies memory loss Endo Denies cold intolerance, Denies fatigue, Denies heat intolerance, Denies polydipsia and Denies polyuria Aller/Immun Denies wheezing Physical exam (Primary Care) Tobacco/Smoking Status: Tobacco use Status Tobacco use date assessed 07/15/23 08/05/23 11:11 Patient Tobacco Use Status Never used Tobacco 08/05/23 11:11 e-Cigarette/Vaping Use Never Used 08/05/23 11:11 Depression Screening Interpretation: Negative Thrive Assessment: Date of Thrive Assessment Date Thrive assessed 04/01/23 08/05/23 11:11 Currently or been in a relationship where the following occur: no concerns reported Const Other: General: no acute distress and well developed Nutritional Appearance: well nourished Orientation/consciousness: patient oriented x3 [facility] Head: Yes normocephalic and Yes atraumatic Eyes General: appearance normal, both eyes and all related structures Pupils: Equal, round and reactive pupils present EOM: EOMs intact bilaterally Resp Effort & Inspection: normal respiratory effort Auscultation: clear to auscultation bilaterally Cardio Rate: regular rate Rhythm: regular rhythm Heart sounds: S1 normal heart sound present, S2 normal heart sound present, no gallops, no murmurs and no rubs GI Palpation (GI): No Abdominal aortic bruit present, Soft to palpation, nontender, No hepatosplenomegaly present and No Rebound tenderness present Auscultation: normal bowel sounds General: Yes no CVA tenderness Back/Spine/Pelvis Back: no CVA tenderness Cervical Spine: cervical ROM normal and No Cervical spine tenderness Thoracic/Lumbar Spine: thoraco-lumbar ROM normal, No pain with thoraco-lumbar ROM, No thoracic spinal tenderness and No lumbar spinal tenderness Extrem General: Yes normal to inspection, No edema and No calf tenderness Skin General: warm and dry. Normal skin color. Normal skin turgor Neuro General: patient oriented x3, gait normal and no focal neuro deficit Cranial nerves: Yes Equal, round and reactive pupils present Cognition (Neuro): normal cognition Gait exam (Neuro): Normal gait present Sensory Exam: No Sensory deficit (Neuro) Psych Appearance: grossly normal Affect: normal affect Attitude: cooperative Thought process: Normal thought process present Assessment and Plan Assessment & Plan (1) Essential hypertension: Code(s): I10 - Essential (primary) hypertension Plan: Resting blood pressure is 140/84, above goal of less than 130/80, heart rate is 80 Will increase metoprolol ER 200 mg daily. Advised to take as prescribed Continue to take diltiazem 300 mg daily Low-sodium diet and routine exercise encouraged Follow-up in 3 weeks or return sooner with symptoms or concerns Verbalized understanding and agreed with treatment plan (2) Anxiety: Code(s): F41.9 - Anxiety disorder, unspecified Plan: Controlled anxiety symptoms PHQ-9 and DAVID-7 scores are normal Continue to take escitalopram as prescribed Routine exercise encouraged Follow-up with symptoms or concerns Verbalized understanding and agreed with treatment plan Medications: New metoprolol succinate ER 100 mg PO DAILY 30 days 30 tabs 3RF Discontinued metoprolol succinate ER Discontinued Reason: Doctor's Order 75 mg (3 x 25 mg) PO DAILY 90 days 270 tabs 1RF venlafaxine ER Discontinued Reason: Doctor's Order 37.5 mg PO DAILY 90 days 90 caps 1RF Coding Level of Care Code Est Pt Level 4 (70719) Complex EM visit Add On G2211 Diagnoses Essential hypertension I10 Anxiety F41.9 Additional Codes DAVID-7 Assessment Billing - DAVID-7 Assessment Tool: DAVID-7 Assessment 30403 ([id number])
[2023-08-05 11:12] VITALS: BP 164/88; PULSE 95; RESP 15; TEMP 36.1; O2SAT 93; BMI 39.0
[2023-08-05 11:34] VITALS: BP 140/84; PULSE 80
== END 2023-08-05 11:43 | disposition home or self-care (01) ==
PROVIDERS: PCP Nurse Practitioner Family; Visit Provider Nurse Practitioner Family
DX: I10 Essential (primary) hypertension (principal); F41.9 Anxiety disorder, unspecified
CPT/HCPCS: 99214; G2211

== ENCOUNTER 2023-08-06 11:57 | Outpatient (AMB) | payer OTHER, SELFPAY ==
--- NOTE | 2023-08-06 12:13 | MHC.OFFVIS ---
Vital Signs 08/06/23 12:14 Height 5 ft 3 in Weight 218 lb 4.122 oz BMI 38.7 Intake Visit Reasons: Ultra sound follow up Record Searcher Required: No Information Interpreted: non-clinical & clinical Accompanied by: Self / Same As Patient Allergies adhesive Allergy (Severe, Verified 08/06/23 12:14) Rash nystatin Allergy (Intermediate, Verified 08/06/23 12:14) Hives sulfide Allergy (Intermediate, Uncoded 08/06/23 12:14) Hives Post menopausal: Yes HPI Comments Details: Presenting for follow-up ultrasound. The patient has no symptoms no pelvic pain, vaginal bleeding or pelvic pressure. Pelvic Ultrasound done in 04/02 showed the following: The uterus measures 4.0 x 2.1 x 3.1 cm. 2.8 x 2.5 x 2.5 cm complex right uterine mass with echogenic foci characteristic of calcifications was difficult to characterize due to limited visualization. Endometrium is poorly visualized due to limited visualization. Image segment of endometrium with thickness of 0.2 cm. Bilateral ovaries were not visualized. No significant free fluid. [facility] Medical History Levoscoliosis Osteoarthritis Dyspnea Breast cancer Pulmonary nodule Surgical History Hx of colonoscopy History of knee replacement procedure of right knee History of knee replacement procedure of left knee S/P lumpectomy, right breast Family History Father Scoliosis Gout HTN (hypertension) CVA (cerebral vascular accident) Mother Colon cancer CHF (congestive heart failure) Anxiety Depression Migraine COPD (chronic obstructive pulmonary disease) Cancer HTN (hypertension) CVA (cerebral vascular accident) Son SMA (spinal muscular atrophy) Carotid artery aneurysm Anterior horn cell disease Other Uterine cancer Social History Household Members: Spouse Both parents involved: No Caregiver staying overnight: No Housing: Apartment Are you a primary child care aide to a significant other at home: No Do you presently have visiting nurse or other home services: No Alcohol intake: current Alcohol intake frequency: a few times a week Alcohol type: wine Patient Tobacco Use Status: Never used Tobacco e-Cigarette/Vaping Use: Never Used service: No Current occupational status: retired Cognitive needs: No Hearing needs: No Vision needs: No Review of Systems Const All systems reviewed & are unremarkable except as noted in HPI and below Reports as per HPI and Reports no additional complaints GI Reports no additional complaints Reports no additional complaints Physical Exam Vital Signs: BMI result Body Mass Index 38.7 Assessment & Plan Assessment & Plan (1) Uterine myoma: Code(s): D25.9 - Leiomyoma of uterus, unspecified Category: Medical Plan: Discussed with the patient the results of the ultrasound, will order pelvic MRI with and without contrast. Instructions given the patient to schedule the MRI and a follow-up appointment. All questions answered, the patient verbalized understanding Orders: Orders MR pelvis wo/w con Today D25.9 - Leiomyoma of uterus, unspecified Coding Level of Care Code Est Pt Level 3 (44319) Diagnoses Uterine myoma D25.9
[2023-08-06 12:14] VITALS: BMI 38.7
== END 2023-08-06 12:58 | disposition home or self-care (01) ==
PROVIDERS: PCP Nurse Practitioner Family; Visit Provider Obstetrics & Gynecology
DX: D25.9 Leiomyoma of uterus, unspecified (principal)
CPT/HCPCS: 99213

== ENCOUNTER → 2023-08-06 11:57 | Outpatient (BNVA) | payer OTHER, SELFPAY | PROVIDERS: PCP Nurse Practitioner Family; Visit Provider Obstetrics & Gynecology ==

== ENCOUNTER 2023-09-12 11:40 | Outpatient (AMB) | payer OTHER, SELFPAY ==
[2023-09-12 11:44] VITALS: BP 132/84; PULSE 107; RESP 15; TEMP 36.6; O2SAT 99; BMI 38.5
--- NOTE | 2023-09-12 11:44 | A.OFFPC_ITS ---
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 Required: No Accompanied by: Self / Same As Patient Allergies adhesive Allergy (Severe, Verified 09/12/23 12:00) Rash nystatin Allergy (Intermediate, Verified 09/12/23 12:00) Hives sulfide Allergy (Intermediate, Uncoded 09/12/23 12:00) Hives Medication List - Last Reconciled 09/12/23 by Wesley Sales CNP albuterol sulfate 90 mcg/actuation 2 inhalations inhalation Q6H PRN 30 days bisacodyl (Dulcolax (bisacodyl)) 10 mg (2 x 5 mg) PO BEDTIME 2 days cholecalciferol (vitamin D3) 250 mcg PO .qud diltiazem HCl CD 300 mg PO DAILY escitalopram oxalate 10 mg PO DAILY 30 days ibuprofen 600 mg PO Q8H PRN lactobacillus combination no.9 (Adult 50 Plus Probiotic) 4,000 mmu cells PO DAILY metoprolol succinate ER 100 mg PO DAILY 30 days sodium,potassium,mag sulfates 17.5-3.13-1.6 gram (Suprep Bowel Prep Kit) 480 mL orally; FOR COLONOSCOPY PREP vitamin B complex 1 tab PO DAILY Tobacco use date assessed: 07/15/23 Fall risk assessment: 1 Fall in past year Last assessed Fall Risk: 09/12/23 Dental Screening Dental Screen Date: 06/03/23 HPI HPI Comments History of Present Illness Details 72-year-old female, accompanied by her h usband, presents for hypertension follow-up She admits to taking her medications as prescribed without adverse reactions She reports controlled anxiety symptoms. She reports adequate night sleep She offers no complaints and denies acute symptoms at this time She reports average home systolic blood pressure readings between 110 and 140/90s She reports history of difficulty with ambulating and unsteady gait secondary to scoliosis. She notes that recently, it has been more challenging to climb upstairs. No recent fall. she is willing to start using a cane for ambulation. [facility] Medical History Levoscoliosis Osteoarthritis Dyspnea Breast cancer Pulmonary nodule Surgical History Hx of colonoscopy History of knee replacement procedure of right knee History of knee replacement procedure of left knee S/P lumpectomy, right breast Family History Father Scoliosis Gout HTN (hypertension) CVA (cerebral vascular accident) Mother Colon cancer CHF (congestive heart failure) Anxiety Depression Migraine COPD (chronic obstructive pulmonary disease) Cancer HTN (hypertension) CVA (cerebral vascular accident) Son SMA (spinal muscular atrophy) Carotid artery aneurysm Anterior horn cell disease Other Uterine cancer Social History Household Members: Spouse Both parents involved: No Caregiver staying overnight: No Housing: Apartment Are you a primary foster care social worker to a significant other at home: No Do you presently have visiting nurse or other home services: No Alcohol intake: current Alcohol intake frequency: a few times a week Alcohol type: wine Patient Tobacco Use Status: Never used Tobacco e-Cigarette/Vaping Use: Never Used service: No Current occupational status: retired Cognitive needs: No Hearing needs: No Vision needs: No Questionnaire Thrive Questionnaire Date Thrive assessed: 08/05/23 DAVID-7 AMB Questionnaire DAVID-7 Date DAVID - 7 assessed: 08/05/23 Source: Developed by Drs. Chinmay Pedroza, Brigid Langston, Lucas Feng and colleagues, with an educational chris from [employer]. Review of Systems Const Details: Const Denies chills, Denies fatigue, Denies fever(s), Denies headache(s) and Denies weakness ENT Denies dizziness and Denies headache(s) Card Denies chest pain, Denies lightheadedness, Denies dyspnea and Denies other (Palpitations) Resp Denies cough, Denies dyspnea, Denies wheezing and Denies other ( shortness of breath) GI Denies abdominal pain, Denies melena, Denies hematochezia, Denies change in bowel habits, Denies dyspepsia and Denies nausea Denies hematuria and Denies dysuria Musc Denies abnormal gait, Denies myalgias, Denies arthralgias, Denies numbness and Denies tingling Skin/Breast Denies rash, Denies unusual bruising and Denies wounds Neuro Reports abnormal gait, Denies dizziness, Denies headache(s), Denies memory loss, Denies numbness, Denies Sensory deficit (Neuro), Denies tingling and Denies weakness Psych Denies anxiety, Denies depression, Denies memory loss Endo Denies cold intolerance, Denies fatigue, Denies heat intolerance, Denies polydipsia and Denies polyuria Aller/Immun Denies wheezing Physical exam (Primary Care) Tobacco/Smoking Status: Tobacco use Status Tobacco use date assessed 07/15/23 08/05/23 11:11 Patient Tobacco Use Status Never used Tobacco 08/05/23 11:11 e-Cigarette/Vaping Use Never Used 08/05/23 11:11 Thrive Assessment: Date of Thrive Assessment Date Thrive assessed 08/05/23 08/05/23 11:21 Const Other: General: no acute distress and well developed Nutritional Appearance: well nourished Orientation/consciousness: patient oriented x3 HENMT Head: Yes normocephalic and Yes atraumatic Eyes General: appearance normal, both eyes and all related structures Pupils: Equal, round and reactive pupils present EOM: EOMs intact bilaterally Resp Effort & Inspection: normal respiratory effort Auscultation: clear to auscultation bilaterally Cardio Rate: regular rate Rhythm: regular rhythm Heart sounds: S1 normal heart sound present, S2 normal heart sound present, no gallops, no murmurs and no rubs GI Palpation (GI): No Abdominal aortic bruit present, Soft to palpation, nontender, No hepatosplenomegaly present and No Rebound tenderness present Auscultation: normal bowel sounds General: Yes no CVA tenderness Back/Spine/Pelvis Back: no CVA tenderness Cervical Spine: cervical ROM normal and No Cervical spine tenderness Thoracic/Lumbar Spine: thoraco-lumbar ROM normal, No pain with thoraco-lumbar ROM, No thoracic spinal tenderness and No lumbar spinal tenderness Extrem General: Yes normal to inspection, No edema and No calf tenderness Skin General: warm and dry. Normal skin color. Normal skin turgor Neuro General: patient oriented x3, slightly unsteady gait and no focal neuro deficit Cranial nerves: Yes Equal, round and reactive pupils present Cognition (Neuro): normal cognition Gait exam (Neuro): Normal gait present Sensory Exam: No Sensory deficit (Neuro) Psych Appearance: grossly normal Affect: normal affect Attitude: cooperative Thought process: Normal thought process present Assessment and Plan Assessment & Plan (1) Essential hypertension: Code(s): I10 - Essential (primary) hypertension Plan: Blood pressure today is 132/84, within goal of less than 140/90 Continue current treatment regimen Low-sodium diet and routine exercise encouraged Follow-up in 3 months or sooner with symptoms or concerns Verbalized understanding and agreed with the treatment plan (2) Scoliosis: Code(s): M41.9 - Scoliosis, unspecified Plan: Difficulty ambulating and unsteady gait secondary to scoliosis; recently worsened especially when climbing stairs Instructed on safety to prevent fall/injury/trauma She is willing to use a cane for ambulation as recommended Tripod cane ordered. Encouraged to use at all times for ambulation Follow-up with symptoms or concerns Verbalized understanding and agreed with the treatment plan (3) Unsteady gait: Code(s): R26.81 - Unsteadiness on feet Plan: As above Medications: New miscellaneous medical supply 1 tripod cane for ambulation 1 ea 0RF Coding Level of Care Code Est Pt Level 4 (73217) Complex EM visit Add On G2211 Diagnoses Essential hypertension I10 Scoliosis M41.9 Unsteady gait R26.81
== END 2023-09-12 12:17 | disposition home or self-care (01) ==
PROVIDERS: PCP Nurse Practitioner Family; Visit Provider Nurse Practitioner Family
DX: I10 Essential (primary) hypertension (principal); M41.9 Scoliosis, unspecified; R26.81 Unsteadiness on feet
CPT/HCPCS: 99214; G2211

== ENCOUNTER 2023-09-17 09:02 | Outpatient (REF) | payer OTHER, SELFPAY ==
--- NOTE | ~2023-09-17 | MR_ITS ---
EXAMINATION: MR PELVIS WITHOUT AND WITH CONTRAST CLINICAL INFORMATION: Complex right uterine mass lesion with echogenic foci COMPARISON: Ultrasound of the pelvis on 04/04/2023 TECHNIQUE: Examination was performed in a high field strength MRI scanner. Pre-contrast multiplanar multisequence MR imaging of the pelvis was performed without IV contrast enhancement. Post-contrast coronal, axial and sagittal T1 weighted fat suppressed images of the pelvis were obtained after IV injection of 10 mL Gadavist. FINDINGS: Uterus is anteverted and atrophic. A right lateral lower uterine body markedly T2 hypointense hypoenhancing mass lesion is seen, measuring 2.4 cm in AP diameter, 2.3 cm in width, 2.3 cm in vertical height (2.8 x 2.5 x 2.5 cm on ultrasound examination). Endometrial stripe is normal in thickness, measuring 2.3 mm. The left ovary is normal in shape and size, measuring 2.1 cm in AP diameter, 1.0 cm in width, 2.8 cm in vertical height. The left ovary could not be identified. Urinary bladder is well filled with urine. Pelvic fat plane is clean. No pelvic ascites is seen. Multiple diverticula are seen in the descending and sigmoid colon without inflammatory changes. No abnormally enlarged iliac or inguinal lymph nodes are found. The pelvis and bilateral hips are intact. Bilateral femoral heads and necks show normal signal without focal lesion. No abnormal joint effusion can be seen. The visualized bony pelvis show normal signal. Bilateral sacroiliac joints also appear unremarkable. MR/MR pelvis wo/w con IMPRESSION: 1. A 2.4 x 2.3 x 2.3 cm right lateral lower uterine body markedly T2 hypointense hypoenhancing mass lesion is seen, most likely representing a uterine fibroid. 2. The left ovary could not be identified. 3. Colonic diverticulosis without inflammatory changes.
[2023-09-17] MEDS: gadobutroL 10 ML VIAL IVPUSH (10:29)
== END 2023-09-17 09:03 | disposition home or self-care (01) ==
LOC: HO.MRI 09:02
PROVIDERS: PCP Nurse Practitioner Family; Visit Provider Nurse Practitioner Family
DX: D25.9 Leiomyoma of uterus, unspecified (principal)
CPT/HCPCS: 72197; A9585

== ENCOUNTER 2023-10-23 13:17 | Outpatient (AMB) | payer MEDICARE, SELFPAY ==
[2023-10-23 13:43] VITALS: BMI 38.3
--- NOTE | 2023-10-23 13:43 | A.OFFVIS_ITS ---
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 A 2.4 x 2.3 x 2.3 cm right lateral lower uterine body markedly T2 hypointense hypoenhancing mass lesion is seen, most likely representing a uterine fibroid. 2. The left ovary could not be identified. 3. Colonic diverticulosis without inflammatory changes MRI was ordered as a follow-up for a pelvic ultrasound which showed the followin.8 cm complex right uterine mass with echogenic foci characteristic of calcifications was difficult to characterize due to limited visualization. Endometrium is poorly visualized due to limited visualization. Image segment of endometrium with thickness of 0.2 cm. Bilateral ovaries were not visualized The patient is doing well with no complaints no pelvic pressure or pain and no vaginal bleeding. PFSH Medical History Levoscoliosis Osteoarthritis Dyspnea Breast cancer Pulmonary nodule Surgical History Hx of colonoscopy History of knee replacement procedure of right knee History of knee replacement procedure of left knee S/P lumpectomy, right breast Family History Father Scoliosis Gout HTN (hypertension) CVA (cerebral vascular accident) Mother Colon cancer CHF (congestive heart failure) Anxiety Depression Migraine COPD (chronic obstructive pulmonary disease) Cancer HTN (hypertension) CVA (cerebral vascular accident) Son SMA (spinal muscular atrophy) Carotid artery aneurysm Anterior horn cell disease Other Uterine cancer Social History Household Members: Spouse Both parents involved: No Caregiver staying overnight: No Housing: Apartment Are you a primary geriatric care manager to a significant other at home: No Do you presently have visiting nurse or other home services: No Alcohol intake: current Alcohol intake frequency: a few times a week Alcohol type: wine Patient Tobacco Use Status: Never used Tobacco e-Cigarette/Vaping Use: Never Used service: No Current occupational status: retired Cognitive needs: No Hearing needs: No Vision needs: No Review of Systems Const All systems reviewed & are unremarkable except as noted in HPI and below Reports as per HPI and Reports no additional complaints GI Reports no additional complaints Reports no additional complaints Physical Exam Vital Signs: BMI result Body Mass Index 38.3 Assessment & Plan Assessment & Plan (1) Uterine myoma: Code(s): D25.9 - Leiomyoma of uterus, unspecified Category: Medical Plan: Discussed with the patient the findings on pelvic MRI & the risk of myosarcoma; Will repeat pelvic ultrasound periodically. Instructions given to patient to call in case any of the following occurs: pressure symptoms, abnormal uterine bleeding, pelvic pain; and to schedule a pelvic ultrasound and a follow-up appointment in the future . All questions answered, the patient verbalized understanding and agreed with the plan . Coding Level of Care Code Est Pt Level 3 (62634) Diagnoses Uterine myoma D25.9
== END 2023-10-23 14:07 | disposition home or self-care (01) ==
LOC: HO.HWS 13:17
PROVIDERS: PCP Nurse Practitioner Family; Visit Provider Obstetrics & Gynecology
DX: D25.9 Leiomyoma of uterus, unspecified (principal)
CPT/HCPCS: 99213

== ENCOUNTER → 2023-10-23 13:17 | Outpatient (BNVA) | payer MEDICARE, SELFPAY | PROVIDERS: PCP Nurse Practitioner Family; Visit Provider Obstetrics & Gynecology | DX: D25.9 Leiomyoma of uterus, unspecified (principal) | CPT/HCPCS: 99212 ==

== ENCOUNTER 2023-10-28 10:05 | Day surgery (SDC) | payer MEDICARE, SELFPAY ==
--- NOTE | 2023-10-27 13:30 | P.CONAN_ITS ---
Documented by User: Nayla Bernabe NP 10/27/23 13:31 HPI - Anesthesia Eval Consult details Narrative: 73yo F for Colonoscopy PMFSH Active Problems Active Problems: All Active Problems Unsteady gait (Acute) Scoliosis (Acute) Family history of colon cancer in mother (Acute) Tubular adenoma of colon (Acute) Pre-op examination (Acute) Hypercalcemia (Acute) Hypertension (Acute) Invasive ductal carcinoma of right breast (Acute) Colon cancer screening (Acute) Normal physical examination, routine (Acute) Uterine myoma (Acute) Cystocele with rectocele (Acute) Obesity (BMI 30-39.9) (Acute) Vitamin D deficiency (Acute) Vaginal symptom (Acute) Elevated parathyroid hormone (Acute) Laboratory tests ordered as part of a complete physical exam (CPE) (Acute) Dyspnea (Acute) Hx of neurofibromatosis (Acute) History of fibromatosis (Acute) Hx of gastric bypass (Acute) Osteopenia (Acute) Breast cancer (Acute) Pulmonary nodule (Acute) Bronchiectasis (Acute) Sinus tachycardia (Acute) Anxiety (Acute) Essential hypertension (Acute) Past Medical History Medical History Levoscoliosis Osteoarthritis Dyspnea Breast cancer Pulmonary nodule Family History Family History Father Scoliosis Gout HTN (hypertension) CVA (cerebral vascular accident) Mother Colon cancer CHF (congestive heart failure) Anxiety Depression Migraine COPD (chronic obstructive pulmonary disease) Cancer HTN (hypertension) CVA (cerebral vascular accident) Son SMA (spinal muscular atrophy) Carotid artery aneurysm Anterior horn cell disease Other Uterine cancer Surgical History Surgical History Hx of colonoscopy History of knee replacement procedure of right knee History of knee replacement procedure of left knee S/P lumpectomy, right breast Social History Social History Household Members: Spouse Housing: Apartment Are you a primary healthcare market consultant to a significant other at home: No Do you presently have visiting nurse or other home services: No Alcohol intake: current Alcohol intake frequency: a few times a week Alcohol t ype: wine Patient Tobacco Use Status: Never used Tobacco e-Cigarette/Vaping Use: Never Used Use of substances other than those prescribed or required for medical reasons: No Are you DNR?: Yes Advance Directives: No Advance Directives Information Provided: Yes service: No Current occupational status: retired Cognitive needs: No Hearing needs: No Vision needs: No Meds Allergies Allergy/AdvReac Type Severity Reaction Status Date / Time adhesive Allergy Severe Rash Verified 10/28/23 10:22 nystatin Allergy Intermediate Hives Verified 10/28/23 10:22 sulfide Allergy Intermediate Hives Uncoded 10/28/23 10:22 Home Medications ?Medication ?Instructions ?Recorded ?Confirmed ?Last Taken ?Type ibuprofen 600 mg tablet 600 mg PO Q8H PRN Pain 08/16/21 10/20/23 Unknown History lactobacillus combination no.9 4 4,000 mmu cells PO DAILY 01/11/22 10/20/23 Unknown History billion cell capsule (Adult 50 Plus Probiotic) vitamin B complex 1 tab PO DAILY 05/01/23 10/20/23 Unknown History cholecalciferol (vitamin D3) 125 250 mcg PO .qud 06/03/23 10/20/23 Unknown History mcg (5,000 unit) capsule Exam Pertinent Lab Results Pertinent Lab Results: Laboratory Tests 10/20/23 13:49 WBC 9.0 Hgb 15.6 Hct 46.6 Plt Count 248 Sodium 140 Potassium 3.9 Chloride 102 Carbon Dioxide 22 BUN 13 Creatinine 1.03 Narrative Narrative: ECHO 2022 Conclusions: - The left ventricular systolic function is normal. The calculated ejection fraction is 69% by biplane method. - No obvious valvular pathology seen on this study. Assessment and Plan Assessment Anesthesia Assessment: Chart Reviewed Documented by User: Erica Velez MD 10/28/23 10:23 PMFSH Past Medical History Medical History Levoscoliosis Osteoarthritis Dyspnea Breast cancer Pulmonary nodule Family History Family History Father Scoliosis Gout HTN (hypertension) CVA (cerebral vascular accident) Mother Colon cancer CHF (congestive heart failure) Anxiety Depression Migraine COPD (chronic obstructive pulmonary disease) Cancer HTN (hypertension) CVA (cerebral vascular accident) Son SMA (spinal muscular atrophy) Carotid artery aneurysm Anterior horn cell disease Other Uterine cancer Family history of problems with anesthesia: No Surgical History Surgical History Hx of colonoscopy History of knee replacement procedure of right knee History of knee replacement procedure of left knee S/P lumpectomy, right breast History of Problems with Anesthesia: No Social History Social History Household Members: Spouse Housing: Apartment Are you a primary healthcare market consultant to a significant other at home: No Do you presently have visiting nurse or other home services: No Alcohol intake: current Alcohol intake frequency: a few times a week Alcohol type: wine Patient Tobacco Use Status: Never used Tobacco e-Cigarette/Vaping Use: Never Used Use of substances other than those prescribed or required for medical reasons: No Are you DNR?: Yes Advance Directives: No Advance Directives Information Provided: Yes service: No Current occupational status: retired Cognitive needs: No Hearing needs: No Vision needs: No Meds Allergies Allergy/AdvReac Type Severity Reaction Status Date / Time adhesive Allergy Severe Rash Verified 10/28/23 10:22 nystatin Allergy Intermediate Hives Verified 10/28/23 10:22 sulfide Allergy Intermediate Hives Uncoded 10/28/23 10:22 Home Medications ?Medication ?Instructions ?Recorded ?Confirmed ?Last Taken ?Type ibuprofen 600 mg tablet 600 mg PO Q8H PRN Pain 08/16/21 10/20/23 Unknown History lactobacillus combination no.9 4 4,000 mmu cells PO DAILY 01/11/22 10/20/23 Unknown History billion cell capsule (Adult 50 Plus Probiotic) vitamin B complex 1 tab PO DAILY 05/01/23 10/20/23 Unknown History cholecalciferol (vitamin D3) 125 250 mcg PO .qud 06/03/23 10/20/23 Unknown History mcg (5,000 unit) capsule Exam Airway Mallampati Class: II TM Dist: >3cm Neck ROM: Full Assessment and Plan Assessment Anesthesia Assessment: Anesthesia Plan Discussed Final Anesthetic Review Family History of Problems with Anesthesia: No History of Problems with Anesthesia: No NPO: Yes ASA Class: III Final Preanesthetic Review: No Changes in Pt Med Stat, Meds/Allgs Chart Reviewed, Consent Obtained/Reviewed and Anes Risks/Benef Reviewed Patient Risk: Intermediate Procedure Risk: Low Anesthetic Plan Anesthetic Plan: TIVA Disposition: Standard PACU
[2023-10-28 10:10] VITALS: BMI 40.8
--- NOTE | 2023-10-28 10:30 | MHC.SHP ---
Pre-Procedural Eval Section A - 24 Hr Update-Section A only Date of Service: 10/28/23 Section B - Complete if H&P > 30 days Chief Complaint: personal hx of polyps, fam hx of CRC Details of Present Illness: PMX ASTHMA/BRONCHIETASIS Hypertension high cholesterol neurofibromatosis Cystocele with rectocele History of right breast cancer Osteopenia Anxiety Sinus tachycardia Severe levo scoliosis CARPAL TUNNEL SYNDROME * SURGICAL HISTORY Right total replacement Left total knee replacement Lumpectomy RIGHT AND LEFT breast GASTRIC BYPASS CHOLECYSTECTOMY * ALLERGIES Nystatin - hives SULFA - hives Adhesive - redness Present Medications: see Short Stay Collaborative assessment Allergies: Allergies Allergy/AdvReac Type Severity Reaction Status Date / Time adhesive Allergy Severe Rash Verified 10/28/23 10:22 nystatin Allergy Intermediate Hives Verified 10/28/23 10:22 sulfide Allergy Intermediate Hives Uncoded 10/28/23 10:22 Review of Systems Review of Systems Comment: Ten point ROS negative Exam Exam Comment: Gen appear: No acute distress HEENT: no icterus Chest: No overt resp distress Abd: soft, nontender, nondistended Psych: Stable affect, answering questions appropriately Neuro: A/Ox3 noted to move all extremities spontaneously Ext: no peripheral edema Plan Diagnosis/Plan: Unchanged I have reviewed the history and physical and performed a pertinent physical examination on my patient. No changes have occurred unless specified. Time Spent With Patient Time: Total time managing care of this patient today ____ minutes.
--- NOTE | 2023-10-28 10:31 | P.OPN-COLO_ITS ---
Colonoscopy Operative Note Operative Note Date of Service: 10/28/23 Narrative: Procedure: Colonoscopy Indication: Personal history of polyps, family history of colon cancer Endoscopist: Maral Oswald MD Anesthesia Provider: Rosy Mcadams CRNA Anesthesia type: MAC Instrument: Olympus [id number]-H190L Consent: Indication, risks vs benefits, and alternatives were discussed with the patient who gave written informed consent to proceed. EKG, pulse, pulse oximetry and blood pressure were monitored throughout the procedure. Please see anesthesia flowsheet. Procedure: The patient was brought to the procedure room and placed in the left lateral decubitus position. IV medications were administered by the anesthesia provider in attendance. A digital rectal exam was performed which was abnormal due to finding of hemorrhoids. A distal attachment cap was affixed to the tip of the colonoscope which was then inserted through the anus and advanced through the colon to the cecum at 75 cm,and terminal ileum. Appendiceal orifice and ileocecal valve were identified. Mucosa was carefully examined under high definition white light as the instrument was slowly withdrawn in a retrograde panoramic fashion. Retroflexion was performed in ascending colon and rectum. The procedure was not difficult. There were no immediate obvious complications. The quality of the prep was BBPS: 2+3+2 = adequate Withdrawal time 11 minutes. Limitations: No limitations. Findings: Mucosa: Normal to cecum and terminal ileum. Protruding lesions: * 2 sessile polyp of size 2-6 mm in transverse colon. The smaller polyp was removed with forceps polypectomy while the larger one was removed with cold snare polypectomy. The polyps were completely removed and retrieved. * Large internal hemorrhoids without stigmata of recent bleeding. Excavated lesions: * Moderate diverticulosis in L colon and scattered diverticula in R colon. Impression: 1. Normal colon and terminal ileum mucosa 2. Total of 2 polyps removed 3. Diverticulosis 4. External and internal hemorrhoids Recommendations: - Follow path results. - Repeat colonoscopy in 5 years even if the polyps are benign, due to fam hx of colon ca in first degree relative.
[2023-10-28 10:36] VITALS: BP 181/103; PULSE 110; RESP 16; TEMP 36.5; O2SAT 95
[2023-10-28] MEDS: Lactated Ringers 1,000 ML 100 ML IVCONT (10:38)
[2023-10-28 11:08] VITALS: BP 110/74; PULSE 100; RESP 16; TEMP 36.1; O2SAT 94
[2023-10-28 11:23] VITALS: BP 142/77; PULSE 93; RESP 20; TEMP 36.6; O2SAT 94
== END 2023-10-28 11:53 | disposition home or self-care (01) ==
PROVIDERS: PCP Nurse Practitioner Family; Visit Provider Internal Medicine
PROC: 0DJD8ZZ Inspection of Lower Intestinal Tract, Via Natural or Artificial Opening Endoscopic (ICD-10-PCS; CPT 45378; principal; 2023-10-28 13:40)
DX: Z12.11 Encounter for screening for malignant neoplasm of colon (principal); Z86.010 Personal history of colon polyps; Z80.0 Family history of malignant neoplasm of digestive organs; D12.3 Benign neoplasm of transverse colon; K57.30 Diverticulosis of large intestine without perforation or abscess without bleeding; K64.8 Other hemorrhoids; K64.4 Residual hemorrhoidal skin tags; J47.9 Bronchiectasis, uncomplicated; J45.909 Unspecified asthma, uncomplicated; I10 Essential (primary) hypertension; E78.00 Pure hypercholesterolemia, unspecified; R00.0 Tachycardia, unspecified; M41.80 Other forms of scoliosis, site unspecified; Q85.00 Neurofibromatosis, unspecified; Z79.1 Long term (current) use of non-steroidal anti-inflammatories (NSAID); Z85.3 Personal history of malignant neoplasm of breast; Z79.899 Other long term (current) drug therapy; L23.1 Allergic contact dermatitis due to adhesives; Z88.2 Allergy status to sulfonamides; Z88.8 Allergy status to other drugs, medicaments and biological substances; Z98.84 Bariatric surgery status; Z98.890 Other specified postprocedural states
CPT/HCPCS: 45385; 45380; 88305; J2704

== ENCOUNTER → 2023-10-28 10:05 | Outpatient (BNV) | payer MEDICARE, SELFPAY | PROVIDERS: PCP Nurse Practitioner Family; Visit Provider Internal Medicine | DX: Z12.11 Encounter for screening for malignant neoplasm of colon (principal); Z86.010 Personal history of colon polyps; Z80.0 Family history of malignant neoplasm of digestive organs; D12.3 Benign neoplasm of transverse colon | CPT/HCPCS: 45380; 45385 ==

== ENCOUNTER 2023-11-04 08:33 | Outpatient (AMB) | payer OTHER, SELFPAY ==
[2023-11-04 08:37] VITALS: BP 130/62; PULSE 91; BMI 41.2
--- NOTE | 2023-11-04 08:37 | MHC.OFFVIS ---
Vital Signs 11/04/23 08:37 Height 5 ft 1 in Weight 217 lb 13.067 oz BMI 41.2 BP 130/62 Blood Pressure Location Lt brachial Position Sitting Pulse 91 Pulse Source Monitor Intake Visit Reasons: 6 mth f/up Intake Note: 6 mth f/up Police Radio Dispatcher Required: No Accompanied by: Significant Other Allergies adhesive Allergy (Severe, Verified 10/28/23 10:22) Rash nystatin Allergy (Intermediate, Verified 10/28/23 10:22) Hives sulfide Allergy (Intermediate, Uncoded 10/28/23 10:22) Hives Medication List - Last Reconciled 11/04/23 by Candi Rcok NP-C albuterol sulfate 90 mcg/actuation 2 inhalations inhalation Q6H PRN 30 days cholecalciferol (vitamin D3) 250 mcg PO .qud diltiazem HCl CD 300 mg PO DAILY escitalopram oxalate 10 mg PO DAILY 30 days ibuprofen 600 mg PO Q8H PRN lactobacillus combination no.9 (Adult 50 Plus Probiotic) 4,000 mmu cells PO DAILY metoprolol succinate ER 100 mg PO DAILY 30 days miscellaneous medical supply 1 tripod cane for ambulation vitamin B complex 1 tab PO DAILY HPI HPI 6 mth f/up: Details: Chela is a 73-year-old female with past medical history of hypertension, inappropriate sinus tachycardia who presents for follow-up. Today she reports that she has been feeling great since her last visit in April. She did see the refiner operator and her spironolactone was changed to metoprolol. Her dose initially was low and increased by her PCP for elevated blood pressure readings. She now believes she is on the right med management is very happy with how she is doing. She has no chest discomfort at rest with activity. No shortness of breath, concerning palpitations, lightheadedness, presyncope, syncope, PND, orthopnea or edema. She reports good activity tolerance. She is taking her medications as directed. is present. [facility] Medical History Levoscoliosis Osteoarthritis Dyspnea Breast cancer Pulmonary nodule Surgical History Hx of colonoscopy History of knee replacement procedure of right knee History of knee replacement procedure of left knee S/P lumpectomy, right breast Family History Father Scoliosis Gout HTN (hypertension) CVA (cerebral vascular accident) Mother Colon cancer CHF (congestive heart failure) Anxiety Depression Migraine COPD (chronic obstructive pulmonary disease) Cancer HTN (hypertension) CVA (cerebral vascular accident) Son SMA (spinal muscular atrophy) Carotid artery aneurysm Anterior horn cell disease Other Uterine cancer Social History Household Members: Spouse Both parents involved: No Caregiver staying overnight: No Housing: Apartment Are you a primary patient care technician to a significant other at home: No Do you presently have visiting nurse or other home services: No Alcohol intake: current Alcohol intake frequency: a few times a week Alcohol type: wine Patient Tobacco Use Status: Never used Tobacco e-Cigarette/Vaping Use: Never Used service: No Current occupational status: retired Cognitive needs: No Hearing needs: No Vision needs: No Review of Systems Const All systems reviewed & are unremarkable except as noted in HPI and below Denies chills, Denies fatigue, Denies fever(s), Denies frequent falls, Denies weakness, Denies weight gain and Denies weight loss ENT Denies dizziness Card Denies chest pain, Denies leg edema, Denies lightheadedness, Denies palpitations, Denies dyspnea and Denies dyspnea on exertion Resp Denies cough, Denies dyspnea and Denies dyspnea on exertion GI Denies hematochezia Musc Denies abnormal gait, Denies muscle weakness, Denies numbness, Denies radiating pain into limb and Denies tingling Neuro Denies abnormal gait, Denies dizziness, Denies frequent falls, Denies numbness, Denies tingling and Denies weakness Endo Denies fatigue and Denies palpitations Physical Exam Vital Signs: Last Vital Signs Pulse 91 11/04/23 08:37 BP 130/62 11/04/23 08:37 BMI result Body Mass Index 41.2 Const General: cooperative, healthy appearing, comfortable and no acute distress Orientation/consciousness: patient oriented x3 Neck Neck: Yes normal visual inspection Resp Effort & Inspection: normal respiratory effort Auscultation: clear to auscultation bilaterally, no crackles, no rales, no rhonchi and no wheezes Cardio Jugular venous distension: no JVD Rate: regular rate Rhythm: regular rhythm Heart sounds: S1 normal heart sound present, S2 normal heart sound present, no murmurs and no rubs Neuro General: patient oriented x3 Extrem General: Yes normal to inspection, No no pedal edema and No calf tenderness Psych Appearance: grossly normal Mental Status: mental status grossly normal Speech and movement: Normal speech and movement present Office Procedures EKG Details: Today, read by me, normal sinus rhythm, no acute ST or T-wave abnormalities, rate 91, QTC 469 milliseconds [id number], Complete Assessment & Plan Assessment & Plan (1) Essential hypertension: Code(s): I10 - Essential (primary) hypertension Category: Medical Plan: History of hypertension. As of last visit she was on Diltiazem and spironolactone. She had been on hydrochlorothiazide in the past and had issues with hypokalemia. She had been on clonidine which was weaned off. Following last visit she was seen by the refiner operator to assist with blood pressure control and evaluate kidney function. Had her stop spironolactone and start on metoprolol XL 25 mg daily. Since then her dose has been increased up to 100 mg daily by her PCP for elevated blood pressure readings. She has been on her current dose of metoprolol along with the diltiazem 300 mg daily since June 2023 and reports feeling well. Her blood pressure today is normal range. No med changes made today. Reviewed low-salt diet, weight control, activity as tolerated. (2) Sinus tachycardia: Code(s): R00.0 - Tachycardia, unspecified Category: Medical Plan: History of inappropriate sinus tachycardia. Holter monitor done 02/05/2022 for 3 days showed sinus rhythm with average heart rate 94 with occasional PVCs. Echocardiogram done 07/24/2022 showed EF 69%, no regional wall motion abnormality or valve abnormality. She has been on diltiazem 300 mg daily for heart rate control. Since her last visit she was started on metoprolol by Nephrology. Dose increased by PCP. EKG done today showing normal sinus rhythm, rate 91. Overall she is very pleased with how she feels. She tells me she checks her pulse rate at home and it is always good. She has not been having concerning heart palpitations. No med changes made. Avoid stimulants. Cardiology follow-up 1 year sooner if needed Plan Time spent on chart review, documentation, interview and assessment Coding Level of Care Code Est Pt Level 3 (84965) Diagnoses Essential hypertension I10 Sinus tachycardia R00.0 CPT Codes EKG - CPT: 40890-[id number], Complete ([id number]) Time Spent (min) 24
== END 2023-11-04 09:00 | disposition home or self-care (01) ==
PROVIDERS: PCP Nurse Practitioner Family; Visit Provider Nurse Practitioner Family
DX: I10 Essential (primary) hypertension (principal); R00.0 Tachycardia, unspecified
CPT/HCPCS: 93010; 99213

== ENCOUNTER → 2023-11-04 08:33 | Outpatient (BNVA) | payer OTHER, SELFPAY | PROVIDERS: PCP Nurse Practitioner Family; Visit Provider Nurse Practitioner Family | DX: I10 Essential (primary) hypertension (principal); R00.0 Tachycardia, unspecified; Z79.899 Other long term (current) drug therapy | CPT/HCPCS: 93005 ==

== ENCOUNTER 2023-11-11 09:44 | Outpatient (AMB) | payer OTHER, SELFPAY ==
--- NOTE | 2023-11-11 09:48 | A.OFFPC_ITS ---
Vital Signs 11/11/23 09:57 Height 5 ft 1 in Weight 218 lb BMI 41.2 BP 138/64 Blood Pressure Location Lt brachial Position Sitting Respiration 16 Pulse 83 Pulse Source Pulse Oximeter Temp 97.8 F Temp Source Oral Pulse Oximetry (%) 95 Oxygen Delivery Method Room Air Intake Visit Reasons: 2 mos HTN, anxiety Intake Note: patient here to follow up on HTN, anxiety and med refills. Laundry Agent Required: No Is last menstrual period known: No Post menopausal: No Patient : No Allergies adhesive Allergy (Severe, Verified 11/11/23 10:00) Rash nystatin Allergy (Intermediate, Verified 11/11/23 10:00) Hives sulfide Allergy (Intermediate, Uncoded 11/11/23 10:00) Hives Medication List - Last Reconciled 11/11/23 by Wesley Sales CNP albuterol sulfate 90 mcg/actuation 2 inhalations inhalation Q6H PRN 30 days cholecalciferol (vitamin D3) 250 mcg PO .qud diltiazem HCl CD 300 mg PO DAILY escitalopram oxalate 10 mg PO DAILY 30 days ibuprofen 600 mg PO Q8H PRN lactobacillus combination no.9 (Adult 50 Plus Probiotic) 4,000 mmu cells PO DAILY metoprolol succinate ER 100 mg PO DAILY 30 days miscellaneous medical supply 1 tripod cane for ambulation vitamin B complex 1 tab PO DAILY Tobacco use date assessed: 11/11/23 Fall risk assessment: 1 Fall in past year Last assessed Fall Risk: 11/11/23 Dental Screening Dental Screen Date: 11/11/23 Did you have a dental visit in the last 12 months?: Yes Did you have a dental problem in the last 6 months where you did not have access to dental care?: No Was dental information given to patient?: Patient has dentist HPI HPI Comments History of Present Illness Details 73-year-old female, accompanied by brenda contreras, presents for hypertension and anxiety follow-up She admits to taking her medications as prescribed without adverse reactions She reports controlled anxiety symptoms. She denies depressive symptoms She reports low energy She has not been exercising PFSH Medical History Levoscoliosis Osteoarthritis Dyspnea Breast cancer Pulmonary nodule Surgical History Hx of colonoscopy History of knee replacement procedure of right knee History of knee replacement procedure of left knee S/P lumpectomy, right breast Family History Father Scoliosis Gout HTN (hypertension) CVA (cerebral vascular accident) Mother Colon cancer CHF (congestive heart failure) Anxiety Depression Migraine COPD (chronic obstructive pulmonary disease) Cancer HTN (hypertension) CVA (cerebral vascular accident) Son SMA (spinal muscular atrophy) Carotid artery aneurysm Anterior horn cell disease Other Uterine cancer Social History Household Members: Spouse Both parents involved: No Caregiver staying overnight: No Housing: Apartment Are you a primary adult care provider to a significant other at home: No Do you presently have visiting nurse or other home services: No Alcohol intake: current Alcohol intake frequency: a few times a week Alcohol type: wine Patient Tobacco Use Status: Never used Tobacco e-Cigarette/Vaping Use: Never Used service: No Current occupational status: retired Cognitive needs: No Hearing needs: No Vision needs: No Questionnaire PHQ-9 Over the last 2 weeks, how often have you been bothered by any of the following problems? 1. Little interest or pleasure in doing things: not at all 2. Feeling down, depressed, or hopeless: not at all 3. Trouble falling or staying asleep, or sleeping too much: not at all 4. Feeling tired or having little energy: more than half the days 5. Poor appetite or overeating: not at all 6. Feeling bad about yourself - or that you are a failure or have let yourself or your family down: not at all 7. Trouble concentrating on things, such as reading the newspaper or watching television: not at all 8. Moving or speaking so slowly that other people could have noticed. Or the opposite - being so fidgety or restless that you have been moving around a lot more than usual: not at all 9. Thoughts that you would be better off or of hurting yourself in some way: not at all Total score: 2 Depression Screening Interpretation: Negative Depression Screening Done: Yes Source: Developed by Drs. Chinmay Pedroza, Brigid Langston, Lucas Feng and colleagues, with an educational chris from [email or web address]. Thrive Questionnaire Date Thrive assessed: 08/05/23 DAVID-7 AMB Questionnaire DAVID-7 Date DAVID - 7 assessed: 11/11/23 Feeling nervous, anxious, or on edge: 0 = Not at all Not being able to stop or control worryin = Not at all Worrying too much about different things: 0 = Not at all Trouble relaxin = Not at all Being so restless that it is hard to sit still: 0 = Not at all Becoming easily annoyed or irritable: 0 = Not at all Feeling afraid as if something awful might happen: 0 = Not at all Total DAVID-7 score (0-4 normal; 5-9 mild; 10-14 moderate; 15-21 severe): 0 Source: Developed by Drs. Chinmay Pedroza, Brigid Langston, Lucas Feng and colleagues, with an educational chris from [email or web address]. DAVID-7 Assessment Billing DAVID-7 Assessment Tool: DAVID-7 Assessment 63763 Review of Systems Const Details: Const Denies chills, Denies fatigue, Denies fever(s), Denies headache(s) and Denies weakness ENT Denies dizziness and Denies headache(s) Card Denies chest pain, Denies lightheadedness, Denies dyspnea and Denies other (Palpitations) Resp Denies cough, Denies dyspnea, Denies wheezing and Denies other ( shortness of breath) GI Denies abdominal pain, Denies melena, Denies hematochezia, Denies change in bowel habits, Denies dyspepsia and Denies nausea Denies hematuria and Denies dysuria Musc Denies abnormal gait, Denies myalgias, Denies arthralgias, Denies numbness and Denies tingling Skin/Breast Denies rash, Denies unusual bruising and Denies wounds Neuro Denies abnormal gait, Denies dizziness, Denies headache(s), Denies memory loss, Denies numbness, Denies Sensory deficit (Neuro), Denies tingling and Denies weakness Psych Denies anxiety, Denies depression, Denies memory loss Endo Denies cold intolerance, Denies fatigue, Denies heat intolerance, Denies polydipsia and Denies polyuria Aller/Immun Denies wheezing Physical exam (Primary Care) Tobacco/Smoking Status: Tobacco use Status Tobacco use date assessed 07/15/23 11/11/23 09:50 Patient Tobacco Use Status Never used Tobacco 11/11/23 09:50 e-Cigarette/Vaping Use Never Used 11/11/23 09:50 Depression Screening Interpretation: Negative Thrive Assessment: Date of Thrive Assessment Date Thrive assessed 08/05/23 11/11/23 09:50 Const Other: General: no acute distress and well developed Nutritional Appearance: well nourished Orientation/consciousness: patient oriented x3 HENMT Head: Yes normocephalic and Yes atraumatic Eyes General: appearance normal, both eyes and all related structures Pupils: Equal, round and reactive pupils present EOM: EOMs intact bilaterally Resp Effort & Inspection: normal respiratory effort Auscultation: clear to auscultation bilaterally Cardio Rate: regular rate Rhythm: regular rhythm Heart sounds: S1 normal heart sound present, S2 normal heart sound present, no gallops, no murmurs and no rubs GI Palpation (GI): No Abdominal aortic bruit present, Soft to palpation, nontender, No hepatosplenomegaly present and No Rebound tenderness present Auscultation: normal bowel sounds General: Yes no CVA tenderness Back/Spine/Pelvis Back: no CVA tenderness Cervical Spine: cervical ROM normal and No Cervical spine tenderness Thoracic/Lumbar Spine: thoraco-lumbar ROM normal, No pain with thoraco-lumbar RO M, No thoracic spinal tenderness and No lumbar spinal tenderness Extrem General: Yes normal to inspection, No edema and No calf tenderness Skin General: warm and dry. Normal skin color. Normal skin turgor Neuro General: patient oriented x3, gait normal and no focal neuro deficit Cranial nerves: Yes Equal, round and reactive pupils present Cognition (Neuro): normal cognition Gait exam (Neuro): Normal gait present Sensory Exam: No Sensory deficit (Neuro) Psych Appearance: grossly normal Affect: normal affect Attitude: cooperative Thought process: Normal thought process present Assessment and Plan Assessment & Plan (1) Essential hypertension: Code(s): I10 - Essential (primary) hypertension Plan: Blood pressure is 138/64, within goal of less than 140/90 Continue current treatment regimen Low-sodium diet encouraged Follow-up in 3 months or sooner with symptoms or concerns Verbalized understanding and agreed with the treatment plan (2) Anxiety: Code(s): F41.9 - Anxiety disorder, unspecified Plan: She notes controlled anxiety and depressive symptoms PHQ-9 and DAVID-7 scores are negative Continue current treatment regimen Healthy diet and routine exercise encouraged Follow-up in 3 months or sooner with symptoms or concerns Verbalized understanding and agreed with the plan (3) Low energy: Code(s): R53.83 - Other fatigue Plan: She notes low energy She takes vitamin D3 250 mcg every other day Recent lab results were unremarkable Will check vitamin D3 and TSH level. Will also check PTH levels as requested Routine exercise encouraged Follow-up with worsening or new symptoms Verbalized understanding and agreed with the treatment plan Orders: Orders TSH reflex Free T4 Today R53.83 - Other fatigue Vitamin D 25-OH Total Today R53.83 - Other fatigue PTH Intact Intraoperative Today R53.83 - Other fatigue Medications: Changed From metoprolol succinate ER 100 mg PO DAILY 30 days 30 tabs 3RF To metoprolol succinate ER 100 mg PO DAILY 90 days 90 tabs 1RF From escitalopram oxalate 10 mg PO DAILY 30 days 30 tabs 3RF To escitalopram oxalate 10 mg PO DAILY 90 days 90 tabs 1RF Coding Level of Care Code Est Pt Level 4 (25183) Complex EM visit Add On G2211 Diagnoses Essential hypertension I10 Anxiety F41.9 Low energy R53.83 Additional Codes DAVID-7 Assessment Billing - DAVID-7 Assessment Tool: DAVID-7 Assessment 90346 ([id number])
[2023-11-11 09:57] VITALS: BP 138/64; PULSE 83; RESP 16; TEMP 36.6; O2SAT 95; BMI 41.2
== END 2023-11-11 10:15 | disposition home or self-care (01) ==
PROVIDERS: PCP Nurse Practitioner Family; Visit Provider Nurse Practitioner Family
DX: I10 Essential (primary) hypertension (principal); F41.9 Anxiety disorder, unspecified; R53.83 Other fatigue
CPT/HCPCS: 99214; G2211

== ENCOUNTER 2023-11-11 10:38 | Outpatient (REF) | payer OTHER, SELFPAY ==
[2023-11-11 14:27] LABS: MANUAL DIFF FLAG NO
[2023-11-11 14:30] LABS: Appearance Urine Turbid; Color Urine Yellow; Glucose Urine UA Negative (Negative); Leukocyte Esterase Urine Trace (Negative); Nitrite Urine Negative (Negative); PH 5.5 (5.0-9.0); Specific Gravity - Urine >= 1.030 (1.005-1.025); UMIC TRIGGER UACC YES; Urine Blood Negative (Negative); Urine Ketones Negative (Negative); Urine Protein Trace mg/dL (Neg-Trace)
[2023-11-11 14:48] LABS: Bacteria Urine 4+ (None Seen); Hyaline Casts Urine 0-2 /LPF (0-2); RBC Urine 0-2 /HPF (0-2); UACC Culture Trigger YES; WBC Urine 21-50 /HPF (0-5)
[2023-11-11 14:55] LABS: Basophils Absolute Auto 0.1 X10*3/uL (0.0-0.2); Basophils Percent Auto 0.6 % (0-2); Eosinophils Percent Auto 0.4 % (0-4); Hematocrit 45.2 % (37.0-47.0); Hemoglobin 14.7 g/dl (12.0-16.0); Imm Gran Abs Auto 0.04 X10*3/uL (0.00-0.03); Imm Gran Pct Auto 0.5 % (0.0-0.4); Mean Corpuscular HGB Conc 32.5 g/dl (31.0-35.0); Mean Corpuscular Hemoglobin 32.4 pg (27.0-33.0); Mean Corpuscular Volume 99.6 fL (80.0-98.0); Mean Platelet Volume 9.2 fL (9.4-12.3); Monocytes Absolute Auto 0.5 X10*3/uL (0.1-1.2); Monocytes Percent Auto 6.5 % (2-11); Neutrophils Absolute Auto 6.7 x10*3/uL (2.0-8.3); Platelet Count 293 X10*3/uL (160-400); Red Blood Count 4.54 X10*6/uL (4.20-5.50); Red Cell Distribution Width 12.7 % (11.0-16.0); White Blood Count 8.3 X10*3/uL (4.8-10.8)
[2023-11-11 15:12] LABS: Alanine Aminotransferase 28 U/L (0-31); Albumin Level 3.7 g/dL (3.5-5.0); Alkaline Phosphatase 61 U/L (39-117); Anion Gap 15 (12-20); Aspartate Amino Transferase 35 U/L (5-31); Bilirubin Total 0.4 mg/dL (0.0-1.0); Blood Urea Nitrogen 13 mg/dL (9-16); Calcium 9.1 mg/dL (8.4-10.2); Carbon Dioxide 26 mmol/L (22-29); Chloride 105 mmol/L (96-108); Estimated Glomerular Filt Rate > 60; Glucose Random 109 mg/dL (60-115); Potassium 3.9 mmol/L (3.3-5.1); Sodium 142 mmol/L (135-145); Total Protein 7.1 g/dL (6.5-8.0)
[2023-11-11 15:33] LABS: TSH reflex Free T4 0.81 uIU/mL (0.32-4.0); Vitamin D 25-OH Total 45.9 ng/mL (>30)
[2023-11-13 22:34] LABS: IgA 265 mg/dL (70-320); IgG 1174 mg/dL (600-1540); IgM 73 mg/dL (50-300)
[2023-11-15 05:13] LABS: VITAMIN D (1,25 OH) D3 73 pg/mL; Vit D (1,25-Dihydroxy) Total 73 pg/mL (18-72); Vitamin D (1,25 OH) D2 <8 pg/mL
== END 2023-11-11 10:39 | disposition home or self-care (01) ==
LOC: HO.WFDLDS 10:38
PROVIDERS: Internal Medicine Nephrology; Referring Provider Internal Medicine Medical Oncology; Visit Provider Nurse Practitioner Family
DX: R53.83 Other fatigue (principal); I10 Essential (primary) hypertension; E83.52 Hypercalcemia; M85.80 Other specified disorders of bone density and structure, unspecified site
CPT/HCPCS: 36415; 80053; 81001; 82306; 82652; 82784; 83970; 84443; 85025; 86334; 87086; 87088; 87186

== ENCOUNTER 2023-11-11 12:12 | Outpatient (AMB) | payer OTHER, SELFPAY ==
--- NOTE | 2023-11-11 12:13 | MHC.OFFVIS ---
Vital Signs 11/11/23 12:16 Height 5 ft 1 in Weight 216 lb 0.848 oz BMI 40.8 Blood Pressure Location Lt brachial Position Sitting Pulse 86 Pulse Source Pulse Oximeter Pulse Oximetry (%) 94 Oxygen Delivery Method Room Air Comment Technical difficulties with auto BP. Verify with provider if they want man. Intake Visit Reasons: s/p colon Intake Note: Chela presents in office today for a scheduled s/p FUV. CC; Pt denies any complications or new concerns post op. Pt is here to discuss the results of their procedure. 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 Accompanied by: Spouse Allergies adhesive Allergy (Severe, Verified 11/11/23 12:15) Rash nystatin Allergy (Intermediate, Verified 11/11/23 12:15) Hives sulfide Allergy (Intermediate, Uncoded 11/11/23 10:00) Hives HPI HPI s/p colon: Details: Assessment & Plan (1) Pre-op examination: Code(s): Z01.818 - Encounter for other preprocedural examination (2) Tubular adenoma of colon: Code(s): D12.6 - Benign neoplasm of colon, unspecified (3) Family history of colon cancer in mother: Code(s): Z80.0 - Family history of malignant neoplasm of digestive organs Plan She has had multiple prior scopes in past since 2002 and all were well tolerated. She has IBS-M that she manages with BRAT during the diarrheal phase, no upper GI problems. There are no prior problems with anesthesia or sedation. She has well controlled asthma and bronchiectasis, and sinus tachycardia well controlled with metoprolol. No ID problems. Her mother had CRC in her 70's and a maternal aunt as well and the patient is having genetic testing for CRC with results pending. Orders: Orders Colonoscopy - GI Use Only Today D12.6 - Benign neoplasm of colon, unspecified, Z01.818 - Encounter for other preprocedural examination Medications: New bisacodyl (Dulcolax (bisacodyl)) 10 mg (2 x 5 mg) PO BEDTIME 2 days 4 tabs 0RF sodium,potassium,mag sulfates 17.5-3.13-1.6 gram (Suprep Bowel Prep Kit) 480 mL orally; FOR COLONOSCOPY PREP 354 mL 0RF Colonoscopy 10/28/23 Findings: Mucosa: Normal to cecum and terminal ileum. Protruding lesions: 2 sessile polyp of size 2-6 mm in transverse colon. The smaller polyp was removed with forceps polypectomy while the larger one was removed with cold snare polypectomy. The polyps were completely removed and retrieved. Large internal hemorrhoids without stigmata of recent bleeding. Excavated lesions: Moderate diverticulosis in L colon and scattered diverticula in R colon. Impression: 1. Normal colon and terminal ileum mucosa 2. Total of 2 polyps removed 3. Diverticulosis 4. External and internal hemorrhoids Recommendations: - Follow path results. - Repeat colonoscopy in 5 years even if the polyps are benign, due to fam hx of colon ca in first degree relative. Biopsy Location: [facility] Received: 10/28/23 Diagnosis Colon, transverse, polypectomy x2: Tubular adenoma (1), diminutive; negative for high-grade dysplasia TODAY'S VISIT The procedure needs to be repeated in 5 years. The procedure was well tolerated. The results were explained and the patient is agreeable to the follow-up interval as stated. The bowel pattern has returned to normal. Education was provided to tell any 1st degree relatives about their findings to be sure that they are screened by age 45. Educated that they will be put on a recall list when it is time for their repeat scope but should they move out of state or away from the hospital they will need to remember along with their primary to repeat the procedure in a timely fashion to avoid any adverse complications. [facility] Medical History (Updated 11/11/23 @ 12:37 by REYES Rubio) Levoscoliosis Osteoarthritis Dyspnea Breast cancer Pulmonary nodule Surgical History (Updated 11/11/23 @ 12:15 by ELBA Gray) Hx of colonoscopy History of knee replacement procedure of right knee History of knee replacement procedure of left knee S/P lumpectomy, right breast Family History Father Scoliosis Gout HTN (hypertension) CVA (cerebral vascular accident) Mother Colon cancer CHF (congestive heart failure) Anxiety Depression Migraine COPD (chronic obstructive pulmonary disease) Cancer HTN (hypertension) CVA (cerebral vascular accident) Son SMA (spinal muscular atrophy) Carotid artery aneurysm Anterior horn cell disease Other Uterine cancer Social History Household Members: Spouse Both parents involved: No Caregiver staying overnight: No Housing: Apartment Are you a primary neurocritical care physician to a significant other at home: No Do you presently have visiting nurse or other home services: No Alcohol intake: current Alcohol intake frequency: a few times a week Alcohol type: wine Patient Tobacco Use Status: Never used Tobacco e-Cigarette/Vaping Use: Never Used service: No Current occupational status: retired Cognitive needs: No Hearing needs: No Vision needs: No Review of Systems Const Denies fatigue, Denies fever(s), Denies night sweats, Denies poor appetite and Denies weight loss ENT Reports Normal hearing present, Denies dental pain, Denies dysphagia, Denies hearing loss, Denies mouth pain, Denies odynophagia, Denies throat swelling, Denies tongue swelling and Reports other (Dentition adequate) Card Reports no additional complaints Resp Reports no additional complaints GI Details: Denies abdominal pain, Denies melena, Denies bloating, Denies hematochezia, Denies constipation, Denies GI cramping, Denies dysphagia, Denies excessive flatus, Denies early satiety, Denies heartburn, Denies diarrhea, Denies nausea, Denies odynophagia, Denies vomiting and Denies hematemesis Musc Reports abnormal gait Skin/Breast Denies pruritus, Denies lesions, Denies rash and Denies jaundice Neuro Reports Normal hearing present, Denies Abnormal speech present and Reports abnormal gait Endo Denies fatigue Aller/Immun Denies throat swelling and Denies tongue swelling Physical Exam Vital Signs: Last Vital Signs Pulse 86 11/11/23 12:16 Pulse Ox 94 11/11/23 12:16 Oxygen Delivery Method Room Air 11/11/23 12:16 BMI result Body Mass Index 40.8 Const General: cooperative, no acute distress, well developed and well groomed Nutritional Appearance: well nourished and obese Orientation/consciousness: oriented to person, oriented to place and oriented to time Limitations: No language barrier and ambulation with cane HEENT Head: Yes normocephalic and Yes atraumatic Eyes Other: glasses General: appearance normal, both eyes and all related structures Pupils: Equal, round and reactive pupils present Neck Neck: Yes normal visual inspection and Yes no lymphadenopathy Thyroid: Thyroid normal Resp Effort & Inspection: normal respiratory effort and able to speak in complete sentences Auscultation: clear to auscultation bilaterally Cardio Rate: regular rate Rhythm: regular rhythm Heart sounds: Normal, physiologic split S2 sound present Peripheral pulses: radial pulses present and posterior tibial pulses present GI Inspection: No distended, Yes Abdominal panniculus present and Yes obesity Palpation (GI): Soft to palpation, nontender, no guarding, not rigid and No hepatosplenomegaly present Percussion: Yes normal to percussion Auscultation: normal bowel sounds Rectal Exam - Female: deferred Skin General skin exam: no rashes or lesions noted, turgor normal, skin not dry, no jaundice, No spider nevi and no striae Rashes: no rashes Nails: normal Neuro General: oriented to person, oriented to place and oriented to time Cranial nerves: Yes Equal, round and reactive pupils present and Yes Normal hearing present Speech: No Abnormal speech present Extrem General: Yes normal to inspection, No clubbing, No cyanosis and No edema Psych Appearance: grossly normal and well kempt Mental Status: mental status grossly normal Speech and movement: Normal speech and movement present Affect: normal affect Attitude: cooperative Thought process: Normal thought process present and not confabulating Thought content: Normal thought content present Insight: Good insight present (Psych) Judgement: Good judgement present (Psych) Results Reviewed Results Reviewed: Colonoscopy 10/28/23 Findings: Mucosa: Normal to cecum and terminal ileum. Protruding lesions: 2 sessile polyp of size 2-6 mm in transverse colon. The smaller polyp was removed with forceps polypectomy while the larger one was removed with cold snare polypectomy. The polyps were completely removed and retrieved. Large internal hemorrhoids without stigmata of recent bleeding. Excavated lesions: Moderate diverticulosis in L colon and scattered diverticula in R colon. Impression: 1. Normal colon and terminal ileum mucosa 2. Total of 2 polyps removed 3. Diverticulosis 4. External and internal hemorrhoids Recommendations: - Follow path results. - Repeat colonoscopy in 5 years even if the polyps are benign, due to fam hx of colon ca in first degree relative. Biopsy Location: [facility] Received: 10/28/23 Diagnosis Colon, transverse, polypectomy x2: Tubular adenoma (1), diminutive; negative for high-grade dysplasi Assessment & Plan Assessment & Plan (1) Tubular adenoma of colon: Comment: 10/2023 scope = 2 TA's repeat 5 years Code(s): D12.6 - Benign neoplasm of colon, unspecified Category: Medical (2) Family history of colon cancer in mother: Code(s): Z80.0 - Family history of malignant neoplasm of digestive organs Category: Medical Plan The procedure needs to be repeated in 5 years. The procedure was well tolerated. The results were explained and the patient is agreeable to the follow-up interval as stated. The bowel pattern has returned to normal. Education was provided to tell any 1st degree relatives about their findings to be sure that they are screened by age 45. Educated that they will be put on a recall list when it is time for their repeat scope but should they move out of state or away from the hospital they will need to remember along with their primary to repeat the procedure in a timely fashion to avoid any adverse complications. Coding Level of Care Code Est Pt Level 3 (39191) Diagnoses Tubular adenoma of colon D12.6 Family history of colon cancer in mother Z80.0
[2023-11-11 12:16] VITALS: PULSE 86; O2SAT 94; BMI 40.8
== END 2023-11-11 12:54 | disposition home or self-care (01) ==
PROVIDERS: PCP Nurse Practitioner Family; Visit Provider Nurse Practitioner
DX: D12.6 Benign neoplasm of colon, unspecified (principal); Z80.0 Family history of malignant neoplasm of digestive organs
CPT/HCPCS: 99213

== ENCOUNTER 2023-11-19 14:06 | Outpatient (AMB) | payer OTHER, SELFPAY ==
--- NOTE | 2023-11-19 14:27 | HO.NEPHOV ---
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 She has history of inappropriate sinus tachycardia. She has past medical history significant for hypertension, bronchiectasis, solitary pulmonary nodule, osteopenia, gastric bypass, neurofibromatosis, scoliosis, chronic LBP, carpal tunnel syndrome of both hands, vitamin D deficiency, elevated PTH, and anxiety. She is on Letrozole for history of right breast cancer . She closely monitors her heart rate and had been fluctuant but better since she is on diltiazem 300 mg daily. Her medications were further adjusted by Cardiology. She does not take excess sodium in the diet. She has history of gastric bypass and had 1 episode of profound hypokalemia which has been corrected. She was on spironolactone. She denies any coronary artery disease, congestive heart failure, carotid stenosis, peripheral arterial disease, history of renal artery stenosis or renal dysfunction. she has been feeling well overall. She has no chest discomfort at rest with activity. No shortness of breath, concerning palpitations, lightheadedness, presyncope, syncope, PND, orthopnea or edema. She reports good activity tolerance. She is taking her medications as directed. Her blood pressure control is better since medication change. COUNTS INCLUDE 234 BEDS AT THE [facility] Medical History (Updated 11/19/23 @ 14:45 by Nadir Coronel MD) Levoscoliosis Osteoarthritis Dyspnea Breast cancer Pulmonary nodule Surgical History Hx of colonoscopy History of knee replacement procedure of right knee History of knee replacement procedure of left knee S/P lumpectomy, right breast Family History Father Scoliosis Gout HTN (hypertension) CVA (cerebral vascular accident) Mother Colon cancer CHF (congestive heart failure) Anxiety Depression Migraine COPD (chronic obstructive pulmonary disease) Cancer HTN (hypertension) CVA (cerebral vascular accident) Son SMA (spinal muscular atrophy) Carotid artery aneurysm Anterior horn cell disease Other Uterine cancer Social History Household Members: Spouse Both parents involved: No Caregiver staying overnight: No Housing: Apartment Are you a primary rn complex care to a significant other at home: No Do you presently have visiting nurse or other home services: No Alcohol intake: current Alcohol intake frequency: a few times a week Alcohol type: wine Patient Tobacco Use Status: Never used Tobacco e-Cigarette/Vaping Use: Never Used service: No Current occupational status: retired Cognitive needs: No Hearing needs: No Vision needs: No Review of Systems Const All systems reviewed & are unremarkable except as noted in HPI and below Physical Exam Vital Signs: Last Vital Signs Pulse 90 11/19/23 14:28 BP 132/70 11/19/23 14:28 Pulse Ox 96 11/19/23 14:28 Oxygen Delivery Method Room Air 11/19/23 14:28 BMI result Body Mass Index 40.9 Const General: comfortable and no acute distress Orientation/consciousness: patient oriented x3 HEENT Head: Yes normocephalic Mouth: Normal oral and palatal mucosa present Eyes EOM: EOMs intact bilaterally Neck Neck: Yes supple Resp Auscultation: clear to auscultation bilaterally Cardio Jugular venous distension: no JVD Rate: regular rate GI Palpation (GI): Soft to palpation Auscultation: normal bowel sounds General: Yes no CVA tenderness Back/Spine/Pelvis Back: no CVA tenderness Skin General skin exam: no rashes or lesions noted Neuro General: patient oriented x3 and moves all extremities Extrem General: Yes no pedal edema Results Reviewed Nephrology Results: Hgb 14.7 g/dl (12.0-16.0) 11/11/23 WBC 8.3 X10*3/uL (4.8-10.8) 11/11/23 Plt Count 293 X10*3/uL (160-400) 11/11/23 Sodium 142 mmol/L (135-145) 11/11/23 Potassium 3.9 mmol/L (3.3-5.1) 11/11/23 Chloride 105 mmol/L (96-108) 11/11/23 Carbon Dioxide 26 mmol/L (22-29) 11/11/23 BUN 13 mg/dL (9-16) 11/11/23 Creatinine 0.87 mg/dL (0.5-1.4) 11/11/23 Calcium 9.1 mg/dL (8.4-10.2) 11/11/23 PTH Intact 133.0 pg/mL (8.7-77.1) H 11/11/23 Urine Protein Trace mg/dL (Neg-Trace) 11/11/23 Assessment & Plan Assessment & Plan (1) Primary hyperparathyroidism: Code(s): E21.0 - Primary hyperparathyroidism Category: Medical (2) Essential hypertension: Code(s): I10 - Essential (primary) hypertension Category: Medical (3) Hypercalcemia: Code(s): E83.52 - Hypercalcemia Category: Medical Plan Chela has hypertension for a while. She has history of tachycardia as well. She has been by Cardiology team. She has not known to have any CAD or CHF. Her renal functions are normal. Given her pulmonary condition, she is at risk for multifocal atrial tachycardia. Her heart rate and blood pressure are very well controlled on current medication regimen. At this moment there is no recent suspect any secondary etiology for her hypertension. She maintains a very good low-sodium diet. I ordered continued W/U for high calcium. I did not make any other changes. Answered all her and her 's questions. Follow-up appointment given Orders: Orders NM parathyroid 11/19/23 E21.0 - Primary hyperparathyroidism Parathyroid Hormone Intact 11/19/23 E21.0 - Primary hyperparathyroidism Blood Urea Nitrogen 11/19/23 E21.0 - Primary hyperparathyroidism Creatinine 11/19/23 E21.0 - Primary hyperparathyroidism Electrolytes 11/19/23 E21.0 - Primary hyperparathyroidism Calcium 11/19/23 E21.0 - Primary hyperparathyroidism Coding Level of Care Code Est Pt Level 4 (79987) Diagnoses Primary hyperparathyroidism E21.0 Essential hypertension I10 Hypercalcemia E83.52
[2023-11-19 14:28] VITALS: BP 132/70; PULSE 90; O2SAT 96; BMI 40.9
== END 2023-11-19 14:51 | disposition home or self-care (01) ==
PROVIDERS: PCP Student in an Organized Health Care Education/Training Program; Visit Provider Internal Medicine Nephrology
DX: E21.0 Primary hyperparathyroidism (principal); I10 Essential (primary) hypertension
CPT/HCPCS: 99214

== ENCOUNTER → 2023-11-19 14:06 | Outpatient (BNVA) | payer OTHER, SELFPAY | PROVIDERS: PCP Student in an Organized Health Care Education/Training Program; Visit Provider Internal Medicine Nephrology ==

== ENCOUNTER 2023-12-15 12:35 | Outpatient (REF) | payer OTHER, SELFPAY ==
--- NOTE | ~2023-12-15 | CT_ITS ---
EXAMINATION: CT CHEST WITHOUT CONTRAST CLINICAL INFORMATION: Solitary pulmonary nodule. COMPARISON: CT chest dated December 18, 2022. TECHNIQUE: Multidetector volumetric CT imaging of the chest was done. Axial MIP volume rendering provided. Sagittal and coronal reformatted images were obtained. This CT examination was performed using dose optimization techniques as appropriate, variously including the following: *Automated exposure control *Adjustment of mA and/or kV according to patient size (this includes techniques or standardized protocols for targeted exams where dose is matched to indication/reason for exam; i.e. extremities or head) *Use of iterative reconstruction technique DLP: 170 mGy-cm FINDINGS: Submitted for interpretation on February 13, 2024. Limited visualization of the thorax secondary to patient's scoliosis of the thoracic spine and deformity of the rib cage. There is an elevated left hemidiaphragm. There is a levoconvex rotoscoliosis of the upper segment apex at T2-3 and to a dextroconvex curvature apex at T7-8. There is incomplete ankylosis at C3-4. There is a 2 mm pulmonary nodule without gross calcification centered in the left lung base. There are few scattered less than 1 mm calcified pulmonary nodules likely granulomata. 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 No consolidation, pleural effusion or pneumothorax. No bronchiectasis. No honeycombing. Respiratory airways patent. No lymphadenopathy, mediastinum. No aneurysm, thoracic aorta. Calcified plaques in the thoracic aortic wall extending branches and the aortic valve and mitral valve. No pericardial effusion. The thyroid gland is not enlarged. There are sutures at the gastroesophageal junction. CT/CT chest wo IV con IMPRESSION: 2 mm probably noncalcified pulmonary nodule, left lung base. Nonspecific. Stable. No acute airspace disease. Scoliosis and multilevel spondylosis. Fleischner guidelines were followed. Electronically signed by: Declan Hastings MD 02/13/2024 03:28 PM EST
== END 2023-12-15 12:36 | disposition home or self-care (01) ==
LOC: HO.CT 12:35
PROVIDERS: Visit Provider Hospitalist
DX: R91.1 Solitary pulmonary nodule (principal)
CPT/HCPCS: 71250

== ENCOUNTER → 2023-12-15 12:37 | Outpatient (BNV) | payer OTHER, SELFPAY | PROVIDERS: Visit Provider Radiology Diagnostic Radiology | DX: R91.1 Solitary pulmonary nodule (principal) | CPT/HCPCS: 71250 ==

== ENCOUNTER 2023-12-23 14:31 | Outpatient (AMB) | payer OTHER, SELFPAY ==
--- NOTE | 2023-12-23 14:42 | A.OFFVIS_ITS ---
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 Apparently, the patient is having worsening respiratory symptoms including cough and chest congestion. At the time she was evaluated in [place] demonstrating evidence of bronchiectasis. The patient was worked up for the bronchiectasis. Had a negative sweat test for cystic fibrosis per the patient. She was found to have home that was infested with mold. That was felt to be the contributing factor. The patient did move out of the home. She was treated with respiratory medications. Did her symptoms improve. Subsequently after that she did have some chest discomfort. She did undergo a CT scan of the chest demonstrating a pulmonary nodule. The patient did have a repeat CT scan in [place] as well back in April [address] scan of the chest demonstrating that the pulmonary nodules to present although slightly smaller based on their technique. As far as the patient's breast cancer she was diagnosed with local breast cancer of the right breast. She did undergo lumpectomy and also underwent radiation therapy. The patient was placed on hormonal therapy, letrozole. The patient has been tolerating medicine. She does follow closely with her oncologist. In view of her breast cancer and history of pulmonary nodules the patient should have a CT scan of the chest to further evaluate the pulmonary nodule. Will request that in the fall of 2021. If the patient develops any worsening symptoms prior to that she is to call the office we can look at that CT scan at an earlier time. From a respiratory status the patient does have a cough is intermittent. And currently is mild. She does have a rescue inhaler that she uses. She also has an Acapella valve that she finds very effective. She does not have a nebulizer and has not use any hypertonic saline. The patient does states that she has been doing very well from a respiratory status. But, in the spring of this year she started developing worsening cough and shortness of breath was using her respiratory medication more often. Now, she is feeling little better. We did review her last pulmonary function studies done in [place] demonstrating no obstructive nor restrictive ventilatory defects. The patient did have a slight decrease maximum voluntary ventilation which could be secondary to deconditioning. She also had a significantly low expiratory reserve volume likely foreign body habitus. Her diffusion capacity was within normal limits. 01/09/2023 the patient is here for a pulmonary follow-up visit. Overall the patient has been doing well. She does complaint of dyspnea on exertion. Sometimes moderate in severity. She wishes she had a albuterol inhaler that she can use. We did talk about getting her a peak flow. I did going through the instructions on how to use it. She should use the peak flow while she is doing well and then subsequently which she has her up so she can measure her peak flow during those difficult times. And then at that point after that she can use her inhaler and then objectively measure her peak flow afterwards as well. The patient did have a CT scan of the chest that we personally reviewed. The patient has multiple calcified granulomas which are not concerning. She does have a 4 mm pulmonary nodule noncalcified on the left lung which appears to be unchanged from last year. Will go ahead and repeat the CT scan and another year to make sure there is to years of stable findings. She also has evidence of the bronchiectatic changes. She does have the Acapella valve that she can use as needed to clear secretions. At this point she does not much secretions. Will plan to repeat the CT scan next year and also perform pulmonary function studies. If her symptoms worsen though she is using her inhaler more often she can always call to get her PFTs done at an earlier time. 12/23/2023 the patient is here for pulmonary follow-up visit. Overall she is doing okay. Still having some dyspnea on exertion [id number] severity. No significant chest congestion her. Denies Having to use her inhaler. She uses it seldom. The patient did have a CT scan of the chest recently and was personally by me. Unfortunately has not been officially read yet. The patient has a very small 4 mm pulmonary nodule noted in the right lower lobe. I did visualize the CT scan and I did appreciate a nodule although measuring 2-3 mm in size in the right lower lobe. Will have to wait for the final read but at least it appears that the nodular changes have not worsened. In regards of the airways the patient does have still some chronic bronchitis looking airways some bronchiectatic changes. She does have an Acapella valve although she does not use it regularly as she does not make a lot significant mucus. She was supposed to undergo a PFT but the machine is currently not working. Will go ahead and reschedule her PFTs for next year since she is doing fairly well. Will plan to repeat the CT scan in a year's time to make sure follow-up with the pulmonary nodules in view of her history of breast cancer. [facility] Medical History (Updated 11/19/23 @ 14:45 by Nadir Coronel MD) Levoscoliosis Osteoarthritis Dyspnea Breast cancer Pulmonary nodule Surgical History Hx of colonoscopy History of knee replacement procedure of right knee History of knee replacement procedure of left knee S/P lumpectomy, right breast Family History Father Scoliosis Gout HTN (hypertension) CVA (cerebral vascular accident) Mother Colon cancer CHF (congestive heart failure) Anxiety Depression Migraine COPD (chronic obstructive pulmonary disease) Cancer HTN (hypertension) CVA (cerebral vascular accident) Son SMA (spinal muscular atrophy) Carotid artery aneurysm Anterior horn cell disease Other Uterine cancer Social History Household Members: Spouse Both parents involved: No Caregiver staying overnight: No Housing: Apartment Are you a primary skin care consultant to a significant other at home: No Do you presently have visiting nurse or other home services: No Alcohol intake: current Alcohol intake frequency: a few times a week Alcohol type: wine Patient Tobacco Use Status: Never used Tobacco e-Cigarette/Vaping Use: Never Used service: No Current occupational status: retired Cognitive needs: No Hearing needs: No Vision needs: No Review of Systems Const Denies fever(s) Eyes Denies loss of vision ENT Denies dizziness and Denies hearing loss Card Denies chest pain and Reports dyspnea on exertion Resp Denies cough, Denies excessive phlegm production, Reports dyspnea on exertion and Denies wheezing GI Denies abdominal pain Denies hematuria, Denies urinary frequency and Denies dysuria Musc Denies arthralgias and Denies muscle weakness Skin/Breast Denies nail changes and Denies rash Neuro Denies Abnormal speech present, Denies dizziness, Denies loss of vision and Denies memory loss Psych Denies depression and Denies memory loss Aller/Immun Reports seasonal rhinorrhea and Denies wheezing Physical Exam Vital Signs: Last Vital Signs Pulse 86 12/23/23 14:43 Pulse Ox 95 12/23/23 14:43 Oxygen Delivery Method Room Air 12/23/23 14:43 BMI result Body Mass Index 40.0 Const General: comfortable HEENT Head: Yes normocephalic Neck Neck: Yes supple Chest Chest palpation & inspection: normal inspection of the chest Resp Effort & Inspection: normal respiratory effort Auscultation: clear to auscultation bilaterally Cardio Rate: regular rate Rhythm: regular rhythm Heart sounds: S1 normal heart sound present and S2 normal heart sound present GI Palpation (GI): Soft to palpation Skin General skin exam: no rashes or lesions noted Neuro Speech: No Abnormal speech present Extrem General: Yes no clubbing, cyanosis or edema Assessment & Plan Assessment & Plan (1) Pulmonary nodule: Code(s): R91.1 - Solitary pulmonary nodule Category: Medical (2) Bronchiectasis: Code(s): J47.9 - Bronchiectasis, uncomplicated Category: Medical Qualifiers: Bronchiectasis type: uncomplicated Qualified Code(s): J47.9 - Bronchiectasis, uncomplicated (3) Breast cancer: Code(s): C50.919 - Malignant neoplasm of unspecified site of unspecified female breast Category: Medical Qualifiers: Breast location: unspecified site of breast Estrogen receptor status: unspecified Laterality: right Patient sex: female Qualified Code(s): C50.911 - Malignant neoplasm of unspecified site of right female breast (4) Dyspnea: Code(s): R06.00 - Dyspnea, unspecified Category: Medical Qualifiers: Dyspnea type: dyspnea on exertion Qualified Code(s): R06.09 - Other forms of dyspnea Plan continue CPT with Acapella valve peak flow short-acting beta agonist as needed repeat CT scan of the chest in 12 months PFTs in 1 yr follow-up with Pulmonary in 12 months Orders: Orders CT chest wo IV con 11 Months J47.9 - Bronchiectasis, uncomplicated PFT pulmonary function test 11 Months J47.9 - Bronchiectasis, uncomplicated Coding Level of Care Code Est Pt Level 4 (14153) Diagnoses Pulmonary nodule R91.1 Bronchiectasis without complication J47.9 Bronchiectasis type: uncomplicated Malignant neoplasm of right female breast, unspecified estrogen receptor status, unspecified site of breast C50.911 Breast location: unspecified site of breast Estrogen receptor status: unspecified Laterality: right Patient sex: female Dyspnea on exertion R06.09 Dyspnea type: dyspnea on exertion Time Spent (min) 17
[2023-12-23 14:43] VITALS: PULSE 86; O2SAT 95; BMI 40.0
== END 2023-12-23 15:09 | disposition home or self-care (01) ==
PROVIDERS: PCP Nurse Practitioner Family; Visit Provider Hospitalist
DX: R91.1 Solitary pulmonary nodule (principal); J47.9 Bronchiectasis, uncomplicated; C50.911 Malignant neoplasm of unspecified site of right female breast; R06.09 Other forms of dyspnea
CPT/HCPCS: 99214

== ENCOUNTER → 2023-12-23 14:31 | Outpatient (BNVA) | payer OTHER, SELFPAY | PROVIDERS: PCP Nurse Practitioner Family; Visit Provider Hospitalist ==

== ENCOUNTER → 2023-12-30 07:47 | Outpatient (REF) | payer OTHER, SELFPAY ==
--- NOTE | ~2023-12-30 | NM_ITS ---
EXAMINATION: NM PARATHYROID IMAGING CLINICAL INFORMATION: Reason for exam: Primary hyperparathyroidism. TECHNIQUE: A double radionuclide study of the thyroid bed region and upper chest in multiple projections was performed 4 hours after the oral administration of 0.99 microcuries I-123 sodium iodide and immediately following the intravenous administration of 23 mCi Tc-99m sestamibi. Repeat imaging was performed 2 hours later. The iodide images were electronically subtracted from the sestamibi images using different weighting factors. FINDINGS: There is homogeneous uptake of radioiodine throughout both lobes. The thyroid gland appears to be normal in size and shape. There are no focal areas of increased or diminished uptake. Technetium 99m sestamibi images demonstrate homogeneous thyroid activity. There are a poorly defined small focal increased Technetium 99m sestamibi activity at the inferior and posterior aspect of the left thyroid lobe. Computer-generated digital subtraction images reveal a small discrepant focus of mild excess sestamibi activity at the inferior and posterior aspect of the left thyroid lobe. NM/NM parathyroid IMPRESSION: A poorly defined small discrepant focus inferior and posterior to the left thyroid lobe, a nonspecific finding ; suggest further characterization by dedicated anatomic imaging keeping with the diagnosis of hyperparathyroidism. Electronically signed by: Gerard Porter MD 01/31/2024 09:39 AM [facility]
== END ==
LOC: HO.NUCMED 07:47
PROVIDERS: PCP Student in an Organized Health Care Education/Training Program; Visit Provider Internal Medicine Nephrology
DX: E21.0 Primary hyperparathyroidism (principal)
CPT/HCPCS: 78070; A9500; A9516

== ENCOUNTER 2024-02-17 07:49 | Outpatient (REF) | payer OTHER, SELFPAY ==
[2024-02-17 12:14] LABS: Anion Gap 16 (12-20); Blood Urea Nitrogen 8 mg/dL (9-16); Calcium 9.6 mg/dL (8.4-10.2); Carbon Dioxide 23 mmol/L (22-29); Chloride 103 mmol/L (96-108); Estimated Glomerular Filt Rate 57; Glucose Random 98 mg/dL (60-115); Potassium 3.4 mmol/L (3.3-5.1); Sodium 139 mmol/L (135-145)
[2024-02-17 12:33] LABS: Vitamin D 25-OH Total 28.3 ng/mL (>30)
[2024-02-17 12:35] LABS: Parathyroid Hormone Intact 78.5 pg/mL (8.7-77.1)
[2024-02-17 18:21] LABS: Appearance Urine Cloudy; Color Urine Yellow; Glucose Urine UA Negative (Negative); Leukocyte Esterase Urine Moderate (2+) (Negative); Nitrite Urine Negative (Negative); PH 5.5 (5.0-9.0); UMIC TRIGGER UACC YES; Urine Blood Negative (Negative); Urine Ketones Negative (Negative); Urine Protein Negative (Neg-Trace)
[2024-02-17 20:16] LABS: Bacteria Urine None Seen (None Seen); Hyaline Casts Urine 0-2 /LPF (0-2); RBC Urine 0-2 /HPF (0-2); UACC Culture Trigger YES
== END 2024-02-17 07:50 | disposition home or self-care (01) ==
LOC: HO.WFDLDS 07:49
PROVIDERS: Referring Provider Internal Medicine Nephrology; Visit Provider Nurse Practitioner Family
DX: I10 Essential (primary) hypertension (principal); E83.52 Hypercalcemia; E21.0 Primary hyperparathyroidism; N94.9 Unspecified condition associated with female genital organs and menstrual cycle; R82.79 Other abnormal findings on microbiological examination of urine
CPT/HCPCS: 36415; 80048; 81001; 82306; 83970; 87086; 87147

== ENCOUNTER 2024-02-18 13:53 | Outpatient (AMB) | payer OTHER, SELFPAY ==
--- NOTE | 2024-02-18 13:57 | HO.NEPHOV_ITS ---
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 She has history of inappropriate sinus tachycardia. She has past medical history significant for hypertension, bronchiectasis, solitary pulmonary nodule, osteopenia, gastric bypass, neurofibromatosis, scoliosis, chronic LBP, carpal tunnel syndrome of both hands, vitamin D deficiency, elevated PTH, and anxiety. She is on Letrozole for history of right breast cancer . She closely monitors her heart rate and had been fluctuant but better since she is on diltiazem 300 mg daily. Her medications were further adjusted by Cardiology. She does not take excess sodium in the diet. She has history of gastric bypass and had 1 episode of profound hypokalemia which has been corrected. She was on spironolactone. She denies any coronary artery disease, congestive heart failure, carotid stenosis, peripheral arterial disease, history of renal artery stenosis or renal dysfunction. she has been feeling well overall. She has no chest discomfort at rest with activity. No shortness of breath, concerning palpitations, lightheadedness, presyncope, syncope, PND, orthopnea or edema. She reports good activity tolerance. She is taking her medications as directed. Her blood pressure control is better since medication change. [facility] Medical History (Updated 11/19/23 @ 14:45 by Nadir Coronel MD) Levoscoliosis Osteoarthritis Dyspnea Breast cancer Pulmonary nodule Surgical History Hx of colonoscopy History of knee replacement procedure of right knee History of knee replacement procedure of left knee S/P lumpectomy, right breast Family History Father Scoliosis Gout HTN (hypertension) CVA (cerebral vascular accident) Mother Colon cancer CHF (congestive heart failure) Anxiety Depression Migraine COPD (chronic obstructive pulmonary disease) Cancer HTN (hypertension) CVA (cerebral vascular accident) Son SMA (spinal muscular atrophy) Carotid artery aneurysm Anterior horn cell disease Other Uterine cancer Social History Household Members: Spouse Both parents involved: No Caregiver staying overnight: No Housing: Apartment Are you a primary director of home care hospice to a significant other at home: No Do you presently have visiting nurse or other home services: No Alcohol intake: current Alcohol intake frequency: a few times a week Alcohol type: wine Patient Tobacco Use Status: Never used Tobacco e-Cigarette/Vaping Use: Never Used service: No Current occupational status: retired Cognitive needs: No Hearing needs: No Vision needs: No Review of Systems Const All systems reviewed & are unremarkable except as noted in HPI and below Physical Exam Vital Signs: Last Vital Signs Pulse 92 02/18/24 13:59 BP 130/74 02/18/24 13:59 Pulse Ox 96 02/18/24 13:59 Oxygen Delivery Method Room Air 02/18/24 13:59 BMI result Body Mass Index 39.4 Const General: comfortable and no acute distress Orientation/consciousness: patient oriented x3 HEENT Head: Yes normocephalic Mouth: Normal oral and palatal mucosa present Eyes EOM: EOMs intact bilaterally Neck Neck: Yes supple Resp Auscultation: clear to auscultation bilaterally Cardio Jugular venous distension: no JVD Rate: regular rate GI Palpation (GI): Soft to palpation Auscultation: normal bowel sounds General: Yes no CVA tenderness Back/Spine/Pelvis Back: no CVA tenderness Skin General skin exam: no rashes or lesions noted Neuro General: patient oriented x3 and moves all extremities Extrem General: Yes no pedal edema Results Reviewed Nephrology Results: Hgb 14.7 g/dl (12.0-16.0) 11/11/23 WBC 8.3 X10*3/uL (4.8-10.8) 11/11/23 Plt Count 293 X10*3/uL (160-400) 11/11/23 Sodium 139 mmol/L (135-145) 02/17/24 Potassium 3.4 mmol/L (3.3-5.1) 02/17/24 Chloride 103 mmol/L (96-108) 02/17/24 Carbon Dioxide 23 mmol/L (22-29) 02/17/24 BUN 8 mg/dL (9-16) L 02/17/24 Creatinine 0.96 mg/dL (0.5-1.4) 02/17/24 Calcium 9.6 mg/dL (8.4-10.2) 02/17/24 PTH Intact 78.5 pg/mL (8.7-77.1) H 02/17/24 Urine Protein Negative mg/dL (Neg-Trace) 02/17/24 Assessment & Plan Assessment & Plan (1) Hypertension: Code(s): I10 - Essential (primary) hypertension Category: Medical Qualifiers: Hypertension type: primary hypertension Qualified Code(s): I10 - Essential (primary) hypertension (2) Primary hyperparathyroidism: Code(s): E21.0 - Primary hyperparathyroidism Category: Medical Plan Chela has hypertension which is well controlled now. She has history of tachycardia as well. She has been by Cardiology team. She has not known to have any CAD or CHF. Her renal functions are normal. Given her pulmonary condition, she is at risk for multifocal atrial tachycardia. Her heart rate and blood pressure are very well controlled on current medication regimen. At this moment there is no recent suspect any secondary etiology for her hypertension. She maintains a very good low-sodium diet. W/U for high calcium showed an area of hyperactivity on one of the parathyroid glands. Her PTH has improved. I did not make any other changes. Answered all her and her 's questions. Follow-up appointment given Orders: Orders Creatinine 6 Months E21.0 - Primary hyperparathyroidism, I10 - Essential (primary) hypertension Blood Urea Nitrogen 6 Months E21.0 - Primary hyperparathyroidism, I10 - Essential (primary) hypertension Electrolytes 6 Months E21.0 - Primary hyperparathyroidism, I10 - Essential (primary) hypertension Parathyroid Hormone Intact 6 Months E21.0 - Primary hyperparathyroidism, I10 - Essential (primary) hypertension Calcium 6 Months E21.0 - Primary hyperparathyroidism, I10 - Essential (primary) hypertension Coding Level of Care Code Est Pt Level 4 (55781) Diagnoses Primary hypertension I10 Hypertension type: primary hypertension Primary hyperparathyroidism E21.0
[2024-02-18 13:59] VITALS: BP 130/74; PULSE 92; O2SAT 96; BMI 39.4
== END 2024-02-18 14:34 | disposition home or self-care (01) ==
PROVIDERS: PCP Student in an Organized Health Care Education/Training Program; Visit Provider Internal Medicine Nephrology
DX: I10 Essential (primary) hypertension (principal); E21.0 Primary hyperparathyroidism
CPT/HCPCS: 99214

== ENCOUNTER 2024-02-24 10:56 | Outpatient (AMB) | payer OTHER, SELFPAY ==
--- NOTE | 2024-02-24 10:58 | MHC.PC.OV ---
Vital Signs 02/24/24 11:04 Height 5 ft 1 in Weight 203 lb 6 oz BMI 38.4 BP 122/60 Blood Pressure Location Rt brachial Position Sitting Respiration 16 Pulse 73 Pulse Source Pulse Oximeter Temp 97.7 F Temp Source Oral Pulse Oximetry (%) 96 Oxygen Delivery Method Room Air Intake Visit Reasons: 3 mos HTN, anxiety Intake Note: patient here for follow up on HTN and anxiety Powerhouse Operator Required: No Is last menstrual period known: No Post menopausal: No Patient : No Allergies adhesive Allergy (Severe, Verified 02/24/24 11:02) Rash nystatin Allergy (Intermediate, Verified 02/24/24 11:02) Hives sulfide Allergy (Intermediate, Uncoded 12/23/23 14:42) Hives Tobacco use date assessed: 02/24/24 Fall risk assessment: No Falls in past year Last assessed Fall Risk: 02/24/24 Dental Screening Dental Screen Date: 02/24/24 Did you have a dental visit in the last 12 months?: Yes Did you have a dental problem in the last 6 months where you did not have access to dental care?: No Was dental information given to patient?: Patient has dentist HPI HPI Comments History of Present Illness Details 73-year-old female, accompanied by , presents for hypertension and anxiety follow-up. She admits to taking her medications as prescribed without adverse reactions. She reports controlled anxiety symptoms. She denies depressive symptoms. She generally sleeps well. She notes hammertoes to both feet with pain with wearing shoes. [facility] Medical History (Updated 02/26/24 @ 14:56 by Wesley Sales CNP) Levoscoliosis Osteoarthritis Dyspnea Breast cancer Pulmonary nodule Surgical History Hx of colonoscopy History of knee replacement procedure of right knee History of knee replacement procedure of left knee S/P lumpectomy, right breast Family History Father Scoliosis Gout HTN (hypertension) CVA (cerebral vascular accident) Mother Colon cancer CHF (congestive heart failure) Anxiety Depression Migraine COPD (chronic obstructive pulmonary disease) Cancer HTN (hypertension) CVA (cerebral vascular accident) Son SMA (spinal muscular atrophy) Carotid artery aneurysm Anterior horn cell disease Other Uterine cancer Social History Household Members: Spouse Both parents involved: No Caregiver staying overnight: No Housing: Apartment Are you a primary health care legal assistant to a significant other at home: No Do you presently have visiting nurse or other home services: No Alcohol intake: current Alcohol intake frequency: a few times a week Alcohol type: wine Patient Tobacco Use Status: Never used Tobacco e-Cigarette/Vaping Use: Never Used service: No Current occupational status: retired Cognitive needs: No Hearing needs: No Vision needs: No Questionnaire PHQ-9 Over the last 2 weeks, how often have you been bothered by any of the following problems? 1. Little interest or pleasure in doing things: not at all 2. Feeling down, depressed, or hopeless: not at all 3. Trouble falling or staying asleep, or sleeping too much: not at all 4. Feeling tired or having little energy: not at all 5. Poor appetite or overeating: not at all 6. Feeling bad about yourself - or that you are a failure or have let yourself or your family down: not at all 7. Trouble concentrating on things, such as reading the newspaper or watching television: not at all 8. Moving or speaking so slowly that other people could have noticed. Or the opposite - being so fidgety or restless that you have been moving around a lot more than usual: not at all 9. Thoughts that you would be better off or of hurting yourself in some way: not at all Total score: 0 Depression Screening Interpretation: Negative Depression Screening Done: Yes 61577 - PHQ-9 Billing: Yes Source: Developed by Drs. Chinmay Pedroza, Brigid Langston, Lucas Feng and colleagues, with an educational chris from [employer]. Thrive Questionnaire Date Thrive assessed: 02/24/24 I am a: Patient What is your living situation today?: I have a steady place to live Within the past 12 months, did the food you bought not last and you didn't have the money to get more?: Never true Within the past 12 months, did you worry whether your food would run out before you got money to buy more?: Never true Do you have trouble paying for medicines?: No Do you have trouble getting transportation to medical appointments?: No Do you have trouble paying your heating and electricity bill?: No Do you have trouble taking care of your child, family member or friend?: No Do you have trouble with day-to-day activities such as bathing, preparing meals, shopping, managing finances, etc.?: No Are you currently unemployed and looking for a job?: No Are you interested in more education?: No Please select the resources that you would like help with: None Currently or been in a relationship where the following occur: No concerns reported THRIVE Score: 0 AUDIT C Alcohol Use Questionnaire (AUDIT-C) 1. How often do you have a drink containing alcohol?: Monthly or less 2. How many drinks containing alcohol do you have on a typical day when you are drinking?: 1 or 2 3. How often do you have six or more drinks on one occasion?: Never Total Score: 1 DAVID-7 AMB Questionnaire DAVID-7 Date DAVID - 7 assessed: 02/24/24 Feeling nervous, anxious, or on edge: 0 = Not at all Not being able to stop or control worryin = Not at all Worrying too much about different things: 0 = Not at all Trouble relaxin = Not at all Being so restless that it is hard to sit still: 0 = Not at all Becoming easily annoyed or irritable: 0 = Not at all Feeling afraid as if something awful might happen: 0 = Not at all Total DAVID-7 score (0-4 normal; 5-9 mild; 10-14 moderate; 15-21 severe): 0 Source: Developed by Drs. Chinmay Pedroza, Brigid Langston, Lucas Feng and colleagues, with an educational chris from [employer]. DAVID-7 Assessment Billing DAVID-7 Assessment Tool: DAVID-7 Assessment 50795 Review of Systems Const Details: Const Denies chills, Denies fatigue, Denies fever(s), Denies headache(s) and Denies weakness ENT Denies dizziness and Denies headache(s) Card Denies chest pain, Denies lightheadedness, Denies dyspnea and Denies other (Palpitations) Resp Denies cough, Denies dyspnea, Denies wheezing and Denies other ( shortness of breath) GI Denies abdominal pain, Denies melena, Denies hematochezia, Denies change in bowel habits, Denies dyspepsia and Denies nausea Denies hematuria and Denies dysuria Musc Reports as per HPI Skin/Breast Denies rash, Denies unusual bruising and Denies wounds Neuro Denies abnormal gait, Denies dizziness, Denies headache(s), Denies memory loss, Denies tingling, Denies numbness, Denies Sensory deficit (Neuro), Denies tingling and Denies weakness Psych Denies anxiety, Denies depression, Denies memory loss Endo Denies cold intolerance, Denies fatigue, Denies heat intolerance, Denies polydipsia and Denies polyuria Aller/Immun Denies wheezing Physical exam (Primary Care) Vital Signs: Last Vital Signs Temp 97.7 F 02/24/24 11:04 Pulse 73 02/24/24 11:04 Resp 16 02/24/24 11:04 BP 122/60 02/24/24 11:04 Pulse Ox 96 02/24/24 11:04 Oxygen Delivery Method Room Air 02/24/24 11:04 BMI result Body Mass Index 38.4 Tobacco/Smoking Status: Tobacco use Status Tobacco use date assessed 02/24/24 02/24/24 11:08 Patient Tobacco Use Status Never used Tobacco 02/24/24 11:01 e-Cigarette/Vaping Use Never Used 02/24/24 11:01 PHQ-9: PHQ-9 Score PHQ-9: Total score 0 02/26/24 14:58 Depression Screening Interpretation: Negative Thrive Assessment: Date of Thrive Assessment Date Thrive assessed 02/24/24 02/24/24 11:01 Currently or been in a relationship where the following occur: No concerns reported Const Other: General: no acute distress and well developed Nutritional Appearance: well nourished Orientation/consciousness: patient oriented x3 HENMT Head: Yes normocephalic and Yes atraumatic Eyes General: appearance normal, both eyes and all related structures Pupils: Equal, round and reactive pupils present EOM: EOMs intact bilaterally Resp Effort & Inspection: normal respiratory effort Auscultation: clear to auscultation bilaterally Cardio Rate: regular rate Rhythm: regular rhythm Heart sounds: S1 normal heart sound present, S2 normal heart sound present, no gallops, no murmurs and no rubs GI Palpation (GI): No Abdominal aortic bruit present, Soft to palpation, nontender, No hepatosplenomegaly present and No Rebound tenderness present Auscultation: normal bowel sounds General: Yes no CVA tenderness Back/Spine/Pelvis Back: no CVA tenderness Cervical Spine: cervical ROM normal and No Cervical spine tenderness Thoracic/Lumbar Spine: thoraco-lumbar ROM normal, No pain with thoraco-lumbar ROM, No thoracic spinal tenderness and No lumbar spinal tenderness Extrem General: Yes normal to inspection, No edema and No calf tenderness. Hammertoes of both feet Skin General: warm and dry. Normal skin color. Normal skin turgor Neuro General: patient oriented x3, gait normal and no focal neuro deficit Cranial nerves: Yes Equal, round and reactive pupils present Cognition (Neuro): normal cognition Gait exam (Neuro): Normal gait present Sensory Exam: No Sensory deficit (Neuro) Psych Appearance: grossly normal Affect: normal affect Attitude: cooperative Thought process: Normal thought process present Coding Level of Care Code Est Pt Level 4 (08303) Diagnoses Primary hypertension I10 Hypertension type: primary hypertension Generalized anxiety disorder F41.1 Vitamin D deficiency E55.9 Primary hyperparathyroidism E21.0 Hammertoes of both feet M20.41; M20.42 Additional Codes DAVID-7 Assessment Billing - DAVID-7 Assessment Tool: DAVID-7 Assessment 20922 ([id number]) PHQ-9 - 18394 - PHQ-9 Billing: Yes ([id number]) Assessment & Plan Assessment & Plan (1) Hypertension: Code(s): I10 - Essential (primary) hypertension Category: Medical Qualifiers: Hypertension type: primary hypertension Qualified Code(s): I10 - Essential (primary) hypertension Plan: Blood pressure is 122/60, within goal of less than 140/90. Continue current treatment regimen. Follow-up in 2 months for an extended physical exam or sooner with symptoms or concerns. Verbalized understanding and agreed with treatment plan. (2) Generalized anxiety disorder: Code(s): F41.1 - Generalized anxiety disorder Category: Medical Plan: Controlled anxiety symptoms. Continue current treatment regimen. Routine exercise encouraged. Follow-up in 2 months. Verbalized understanding and agreed with the plan. (3) Vitamin D deficiency: Code(s): E55.9 - Vitamin D deficiency, unspecified Category: Medical Plan: Recent vitamin-D level is slightly low, 28.3. Continue current treatment regimen. Advised to get vitamin-D blood work done 2-3 days before next visit. Verbalized understanding and agreed with the plan. (4) Primary hyperparathyroidism: Code(s): E21.0 - Primary hyperparathyroidism Category: Medical Plan: Recent parathyroid level with significant improvement, 78.5. Followed by nephrology. (5) Hammertoes of both feet: Code(s): M20.41 - Other hammer toe(s) (acquired), right foot; M20.42 - Other hammer toe(s) (acquired), left foot Category: Medical Plan: Hammertoes of both feet with pain while wearing shoes. Avoid tight fitted shoes. Tylenol ibuprofen for pain or discomfort. Referred to Podiatry. Orders: Orders Vitamin D 25-OH Total 2 Months E55.9 - Vitamin D deficiency, unspecified Referrals Podiatry Referral M20.41 - Other hammer toe(s) (acquired), right foot, M20.42 - Other hammer toe(s) (acquired), left foot
[2024-02-24 11:04] VITALS: BP 122/60; PULSE 73; RESP 16; TEMP 36.5; O2SAT 96; BMI 38.4
== END 2024-02-24 11:25 | disposition home or self-care (01) ==
PROVIDERS: PCP Nurse Practitioner Family; Visit Provider Nurse Practitioner Family
DX: I10 Essential (primary) hypertension (principal); F41.1 Generalized anxiety disorder; E55.9 Vitamin D deficiency, unspecified; E21.0 Primary hyperparathyroidism; M20.41 Other hammer toe(s) (acquired), right foot; M20.42 Other hammer toe(s) (acquired), left foot

== ENCOUNTER → 2024-02-24 10:56 | Outpatient (BNVA) | payer OTHER, SELFPAY | PROVIDERS: PCP Nurse Practitioner Family; Visit Provider Nurse Practitioner Family | DX: I10 Essential (primary) hypertension (principal); F41.1 Generalized anxiety disorder; E55.9 Vitamin D deficiency, unspecified; E21.0 Primary hyperparathyroidism; M20.41 Other hammer toe(s) (acquired), right foot; M20.42 Other hammer toe(s) (acquired), left foot | CPT/HCPCS: 96127 ==

== ENCOUNTER 2024-05-31 07:57 | Outpatient (REF) | payer OTHER, SELFPAY ==
[2024-05-31 09:16] LABS: Parathyroid Hormone Intact 52.3 pg/mL (8.7-77.1)
[2024-05-31 09:38] LABS: Vitamin D 25-OH Total 21.9 ng/mL (>30)
== END 2024-05-31 07:58 | disposition home or self-care (01) ==
LOC: HO.LAB 07:57
PROVIDERS: PCP Nurse Practitioner Family; Visit Provider Nurse Practitioner Family
DX: E55.9 Vitamin D deficiency, unspecified (principal)
CPT/HCPCS: 36415; 82306; 83970

== ENCOUNTER 2024-06-08 12:03 | Outpatient (AMB) | payer OTHER, SELFPAY ==
--- NOTE | 2024-06-08 12:17 | MHC.OFFWIV ---
Intake Vital Signs 06/08/24 12:18 Weight 192 lb BP 104/62 Blood Pressure Location Lt brachial Position Sitting Pulse 110 H Pulse Source Pulse Oximeter Pulse Oximetry (%) 99 Oxygen Delivery Method Room Air Intake Visit Reasons: EP pain on LT leg, trouble walking & low BP Intake Note: Patient here for left leg pain and low BP for the past couple of days. Patient Tobacco Use Status: Never used Tobacco Allergies adhesive Allergy (Severe, Verified 02/24/24 11:02) Rash nystatin Allergy (Intermediate, Verified 02/24/24 11:02) Hives sulfide Allergy (Intermediate, Uncoded 12/23/23 14:42) Hives HPI HPI Comments History of Present Illness Details History of Present Illness The patient is a 73-year-old female presenting with repetitive low blood pressure readings x2 months and left leg swelling x 3 weeks. - She has past medical history significant for hypertension, bronchiectasis, solitary pulmonary nodule, osteopenia, gastric bypass, neurofibromatosis, scoliosis, chronic low back pain, carpal tunnel syndrome bilat, vitamin D deficiency, elevated PTH, breast cancer, and anxiety. - Patient reports multiple low blood pressure readings (see below) after discontinuing diltiazem and metoprolol two months ago, with blood pressure readings often registering low on home monitoring. Symptoms include lack of energy and muscle strength but without associated dizziness, feeling of passing out, passing out, chest pain or shortness of breath. - Patient tells me in March she went alcohol free for the month and then had a bout of diarrhea following gastritis in mid-March lasted till mid-April, correlating with considerable weight loss from 216 pounds in November to approximately 192 pounds at present. It was around that time she stopped her HTN meds. - The patient reports left leg swelling persisting for three weeks with associated pain, particularly during ambulation, and visually greater swelling compared to the right leg. - Past medical history includes breast cancer treatment with letrozole, patient states she no longer takes this medication - Patient also notes immobility due to sciatica issues. wrist cuff readings from her machine as follows 102/54 89/58 95/50 72/47 84/54 106/62 79/47 76/47 Physical Exam General: Cooperative, healthy appearing, comfortable, no acute distress and well developed Orientation: Patient oriented x3 Limitations: wheelchair Head: Normal to inspection Ears: Hearing grossly normal bilaterally Nose: Normal External nose present Face and sinus: Normal facial exam Eyes: Appearance normal, both eyes and all related structures Neck: Normal visual inspection and Yes full ROM Respiratory: Normal respiratory effort and able to speak in complete sentences. Clear to auscultation bilaterally Cardiovascular: tachycardic rate and regular rhythm. Normal S1 and S2 Skin: No rashes or lesions noted Neuro: Patient oriented x3 Extremities: left leg 1+ pitting edema, + homans, no change in color, no warmth, no variscosities noted. right leg normal [facility] Medical History (Updated 06/08/24 @ 13:16 by Janis Longo PA-C) Levoscoliosis Osteoarthritis Dyspnea Breast cancer Pulmonary nodule Surgical History Hx of colonoscopy History of knee replacement procedure of right knee History of knee replacement procedure of left knee S/P lumpectomy, right breast Family History Father Scoliosis Gout HTN (hypertension) CVA (cerebral vascular accident) Mother Colon cancer CHF (congestive heart failure) Anxiety Depression Migraine COPD (chronic obstructive pulmonary disease) Cancer HTN (hypertension) CVA (cerebral vascular accident) Son SMA (spinal muscular atrophy) Carotid artery aneurysm Anterior horn cell disease Other Uterine cancer Social History Household Members: Spouse Housing: Apartment Are you a primary care analyst to a significant other at home: No Do you presently have visiting nurse or other home services: No Alcohol intake: current Alcohol intake frequency: a few times a week Alcohol type: wine Patient Tobacco Use Status: Never used Tobacco e-Cigarette/Vaping Use: Never Used service: No Current occupational status: retired Cognitive needs: No Hearing needs: No Vision needs: No Review of Systems Const All systems reviewed & are unremarkable except as noted in HPI and below Physical Exam Vital Signs: Last Vital Signs BP 104/62 06/08/24 12:18 Assessment & Plan Assessment & Plan (1) Pain and swelling of left lower leg: Code(s): M79.662 - Pain in left lower leg; M79.89 - Other specified soft tissue disorders Plan: VSS, pt well appearing, PE remarkable for a 1+ pitting edema on the left lower extremity and a positive Homans, getting emergent ultrasound to rule out a DVT as patient has had reduced mobility recently due to her back pain and sciatica. Wells Score 3 points, high risk. (2) Low blood pressure reading: Code(s): R03.1 - Nonspecific low blood-pressure reading Plan: Blood pressure in the office today is WNL. She has a follow up with her skull chopper in August, we called today to move her appointment up to this FridayJune 11 for a thorough workup to investigate her low blood pressure readings. In the meanwhile, patient was instructed to go to the emergency room as she feels dizzy, has any episodes of feeling like she is going to pass out her actually passes out. Or if she develops a fever but today she has no signs of infectious process. (3) DVT of lower limb, acute: Code(s): I82.409 - Acute embolism and thrombosis of unspecified deep veins of unspecified lower extremity Qualifiers: Affected thrombotic vein of extremity: popliteal Laterality: left Qualified Code(s): I82.432 - Acute embolism and thrombosis of left popliteal vein Plan: US positive for DVT, will start patient on Eliquis and arrange for proper follow up with PCP. Sent message to PCP to inform and arrange for proper follow up with him. Reviewed risks and benefits of Eliquis use with patient. Low concern for pulmonary embolism as patient is not short of breath she is satting at 99% and she is a little bit tachycardic but she has a history of sinus tachycardia. Did give patient red flag warning signs and when to go to the emergency department. IMPRESSION: Examination POSITIVE for DVT involving the left popliteal vein and extending into the left peroneal veins. Orders: Orders US venous duplex LE LT Today M79.662 - Pain in left lower leg, M79.89 - Other specified soft tissue disorders Medications: New apixaban (Eliquis DVT-PE Treat 30D Start) 5 mg PO BID 74 ea 0RF Coding Level of Care Code Est Pt Level 5 (60774) Diagnoses Pain and swelling of left lower leg M79.662; M79.89 Low blood pressure reading R03.1 Acute deep vein thrombosis (DVT) of popliteal vein of left lower extremity I82.432 Affected thrombotic vein of extremity: popliteal Laterality: left
[2024-06-08 12:18] VITALS: BP 104/62; PULSE 110; O2SAT 99
== END 2024-06-08 13:59 | disposition home or self-care (01) ==
PROVIDERS: PCP Nurse Practitioner Family; Visit Provider Physician Assistant
DX: M79.662 Pain in left lower leg (principal); M79.89 Other specified soft tissue disorders; R03.1 Nonspecific low blood-pressure reading; I82.432 Acute embolism and thrombosis of left popliteal vein

== ENCOUNTER 2024-06-08 12:48 | Outpatient (REF) | payer OTHER, SELFPAY ==
--- NOTE | ~2024-06-08 | US_ITS ---
EXAMINATION: US TRIPLEX LOWER EXTREMITY, LEFT CLINICAL INFORMATION: Left lower leg pain, rule out DVT. COMPARISON: None available. TECHNIQUE: Color-flow triplex imaging with spectral analysis and compression Doppler were performed on the left lower extremity. FINDINGS: There is noncompressible thrombus identified in the left popliteal vein, extending into the left peroneal veins, findings consistent with DVT. The left common femoral vein, superficial femoral vein appear patent. There is no Sr's cyst. US/US venous duplex LE LT IMPRESSION: Examination POSITIVE for DVT involving the left popliteal vein and extending into the left peroneal veins. As per technologist note, provider Janis Cervantes is aware. Electronically signed by: Guillaume Fraser MD 06/08/2024 01:18 PM EDT
== END 2024-06-08 12:49 | disposition home or self-care (01) ==
LOC: HO.HMGCX 12:48
PROVIDERS: PCP Nurse Practitioner Family; Visit Provider Physician Assistant
DX: M79.662 Pain in left lower leg (principal); R60.0 Localized edema; R03.1 Nonspecific low blood-pressure reading; I82.432 Acute embolism and thrombosis of left popliteal vein
CPT/HCPCS: 93971

== ENCOUNTER → 2024-06-08 12:50 | Outpatient (BNV) | payer OTHER, SELFPAY | PROVIDERS: PCP Nurse Practitioner Family; Visit Provider Radiology Diagnostic Radiology | DX: R22.42 Localized swelling, mass and lump, left lower limb (principal) | CPT/HCPCS: 93971 ==

== ENCOUNTER 2024-06-11 08:57 | Emergency (ER) | payer OTHER, SELFPAY ==
--- NOTE | ~2024-06-11 | CT_ITS ---
EXAMINATION: CT ABDOMEN PELVIS WITH IV CONTRAST HISTORY: wt loss, weakness, diarrhea COMPARISON: There are no prior studies for comparison. TECHNIQUE: CT scan of the abdomen and pelvis was performed following administration of 85 mL Omnipaque 350 using standard departmental protocol. Coronal and sagittal reformatted images were generated and reviewed. Oral contrast material was not administered at the request of the referring physician. This CT exam was performed with one or more of the following dose reduction techniques: automated exposure control, adjustment of the mA and/or kV according to patient size, use of iterative reconstruction technique. DLP: 166 mGy-cm FINDINGS: LOWER CHEST: The visualized right lung base is clear. There is elevation of the left hemidiaphragm. There is a small left pleural effusion. CARDIOVASCULATURE: The heart is normal in size. There is no pericardial effusion. LIVER: The liver is normal in size and contour, but demonstrates diffusely decreased attenuation, consistent with steatosis. No liver mass is identified. The hepatic and portal veins are patent. GALLBLADDER / BILE DUCTS: The gallbladder is surgically absent. There is no intra or extrahepatic biliary ductal dilatation. SPLEEN: The spleen is normal in size. No focal splenic lesion is identified. PANCREAS: The pancreas is unremarkable in appearance. ADRENAL GLANDS: Within normal limits. KIDNEYS/RETROPERITONEUM: No renal calculi are identified. There is no hydronephrosis. No renal masses are identified. LYMPH NODES: No abdominal or pelvic lymphadenopathy. VASCULATURE: The abdominal aorta is normal in caliber. MESENTERY/PERITONEUM: No free fluid. No masses. There is no free intraperitoneal gas. STOMACH: The patient is status post gastric surgery. SMALL BOWEL: The small bowel is normal in caliber. COLON: There is diverticulosis of the descending and sigmoid colon. There is pericolonic inflammatory stranding about the descending colon, consistent with diverticulitis. There is a fluid collection involving the left psoas and iliacus muscles which contains gas, consistent with an abscess. This measures at least 10.0 x 7.4 x 5.3 cm. A smaller 1.6 cm soft tissue density containing gas is seen anterior to the ascending colon. APPENDIX: Normal. URINARY BLADDER/PELVIC ORGANS: The urinary bladder is collapsed, limiting evaluation. There is a 2.1 cm calcification in the uterus consistent with a fibroid. BONES / SOFT TISSUES: There is degenerative disc disease of the spine. CT/CT abdomen pelvis w IV con IMPRESSION: Findings consistent with diverticulitis involving the descending colon. There is a 10.0 x 7.4 x 5.3 cm abscess involving the left psoas and iliacus muscles. Findings were discussed with MAURICE Ponce the emergency room on 06/11/2024 12:52 PM. Electronically signed by: Chinmay Epps MD 06/11/2024 12:51 PM EDT
--- NOTE | ~2024-06-11 | US_ITS ---
CLINICAL HISTORY: acute RUE swelling Venous duplex ultrasound right upper extremity Comparison: None Findings: Accessible deep venous segments are fully compressible with normal Doppler color flow and spectral tracings. IMPRESSION: 1. Negative for right upper extremity deep vein thrombosis. This document has been electronically signed by: Debo Moody MD on 06/11/2024 18:51:37
--- NOTE | ~2024-06-11 | CT_ITS ---
EXAMINATION: CT HEAD WITHOUT CONTRAST CLINICAL INFORMATION: Falls, word finding difficulty. COMPARISON: None available. TECHNIQUE: Contiguous axial imaging was performed from the skull base to vertex without intravenous administration of contrast. This CT examination was performed using dose optimization techniques as appropriate, variously including the following: *Automated exposure control *Adjustment of mA and/or kV according to patient size (this includes techniques or standardized protocols for targeted exams where dose is matched to indication/reason for exam; i.e. extremities or head) *Use of iterative reconstruction technique FINDINGS: There is mild to moderate motion degradation in the mid aspect of the scan. This limits sensitivity of the study. There is no evidence of intracranial hemorrhage or extra-axial fluid collection. There is no mass effect, or edema. No CT evidence of acute territorial infarct. Ventricles, sulci, and cisterns are mildly diffusely prominent, in keeping with age-related involutional changes. No hydrocephalus. No midline shift. Negative hyperdense MCA sign. Negative insular ribbon sign. Patchy periventricular and deep white matter hypoattenuation is consistent with mild to moderate small vessel ischemic changes. Partial empty sella. Mild atheromatous calcification of the bilateral carotid siphons and V4 segments vertebral arteries bilaterally. Globes and orbital contents image normally. No extracranial soft tissue abnormalities. The paranasal sinuses, mastoid air cells, and tympanic cavities are normally aerated. No suspicious bony abnormalities. There are no acute fractures evident. CT/CT head/brain wo IV con IMPRESSION: No acute intracranial abnormality. Electronically signed by: Guillaume Fraser MD 06/11/2024 12:25 PM EDT
--- NOTE | ~2024-06-11 | XR_ITS ---
EXAMINATION: XR CHEST CLINICAL INFORMATION: weakness COMPARISON: Correlated to CT abdomen 06/15/2023. TECHNIQUE: Frontal view of the chest was obtained. FINDINGS: Elevated left hemidiaphragm, old/chronic. These could shaped opacity left lower thorax. Low lung volume, left lung. Cardiomediastinal silhouette overlaps the left hemithorax due to patient's positioning. The right lung is aerated without consolidation, pleural fissure pneumothorax. No pneumothorax in the left side pneumothorax. S-shaped curvature of the thoracic spine. Degenerative changes in the greater tuberosity right humerus. XR/XR chest 1V IMPRESSION: Left-sided pleural effusion, moderate volume. Electronically signed by: Declan Hastings MD 06/11/2024 10:24 AM EDT
--- NOTE | ~2024-06-11 | CT_ITS ---
EXAMINATION: CT ANGIOGRAM CHEST CLINICAL INFORMATION: Tachycardia, new DVT diagnosis left lower extremity. COMPARISON: 12/15/2023. TECHNIQUE: Multiple axial images were obtained through the chest after the administration of 50 mL of Omnipaque 350 intravenous contrast. Extensive vascular post-processing including two-dimensional and three-dimensional reformatted images were created and reviewed on an independent workstation. This CT examination was performed using dose optimization techniques as appropriate, variously including the following: *Automated exposure control *Adjustment of mA and/or kV according to patient size (this includes techniques or standardized protocols for targeted exams where dose is matched to indication/reason for exam; i.e. extremities or head) *Use of iterative reconstruction technique FINDINGS: VASCULAR: There is segmental pulmonary embolus identified involving the right lower lobe pulmonary arteries. No definite left-sided PE. No enlargement of the main pulmonary artery. No evidence of right heart strain pattern. No contrast reflux into the hepatic veins. The aorta is normal in caliber and course without evidence of aneurysm or acute aortic syndrome. There is mild atheromatous calcification. The heart size is normal. There is no pericardial effusion. LUNGS: Elevated left hemidiaphragm. There is a small to moderate left pleural effusion present, with associated mild passive atelectasis of the left lower lobe and lingular segments. Discoid atelectasis present in the superior segment left lower lobe No right effusion present. Mild diffuse small airway thickening, most pronounced in the lower lobes. PLEURA: There is no pleural effusion. No pleural mass or thickening. MEDIASTINUM: No adenopathy or mass. No fluid collection. Normal thyroid. AXILLA/CHEST WALL: Mild anasarca. No lymphadenopathy. UPPER ABDOMEN: Refer to the dedicated CT abdomen and pelvis performed concurrently. OSSEOUS STRUCTURES: Severe thoracic shaped scoliosis, superior aspect convex to the left, apex at T3-4. No suspicious lytic or blastic bone lesions. No acute fractures. CT/CT angio chest PE protocol IMPRESSION: 1. Positive examination for right lower lobe pulmonary embolus. This does not meet criteria for submassive PE. 2. No evidence of acute aortic syndrome or aneurysm. 3. Elevated left hemidiaphragm. Small to moderate-sized left pleural effusion with associated passive atelectasis left lower lobe and lingula. Associated discoid atelectasis in the aerated left lower lobe. 4. Diffuse small airway thickening in keeping with inflammatory or infectious airways disease. 5. Mild anasarca. Electronically signed by: Guillaume Fraser MD 06/11/2024 12:41 PM EDT RP
[2024-06-11 09:02] VITALS: BP 133/66; PULSE 130; O2SAT 98
[2024-06-11 09:04] VITALS: BP 120/33; PULSE 125; RESP 18; TEMP 37.1; O2SAT 97; BMI 35.7
--- NOTE | 2024-06-11 09:12 | ECG_ITS ---
Test Reason : weakness Blood Pressure : */* mmHG Vent. Rate : 160 BPM Atrial Rate : 156 BPM P-R Int : * ms QRS Dur : 66 ms QT Int : 248 ms P-R-T Axes : * 1 161 degrees QTcB Int : 404 ms Undetermined rhythm -first few beats are sinus. Nonspecific ST and T wave abnormality Abnormal ECG No previous ECGs available Referred By: Generic ED Physician Electronically Signed By: STEVIE CEDENO
[2024-06-11 09:20] VITALS: TEMP 37.9
--- NOTE | 2024-06-11 10:07 | ED_ITS ---
HPI - General Adult General Chief complaint: General Medical Stated complaint: INC WEAKNESS X 3 WKS,LEG SWELLING PER EMS Time Seen by Provider: 06/11/24 09:03 Source: patient, family, RN notes reviewed and old records reviewed History of Present Illness ED Provider: Annalise Wilson PA-C HPI narrative: 73-year-old female with a past medical history HTN, bronchiectasis, solitary pulmonary nodule, osteopenia, gastric bypass, neurofibromatosis, breast CA, anxiety, sinus tachycardia, recently diagnosed LLE DVT started on Eliquis on 06/08/2024, presenting to the ED today complaining of generalized fatigue/weakness over the past few weeks with difficulty performing ADLs, and LLE swelling/pain. Reports fall at home on Friday with ?Head strike, was seen at urgent care afterwards with complaints of LLE swelling and diagnosed with DVT. Also reports weight loss x few months, and some difficulty with word finding x 1 month. Also reports diarrhea. Denies fever, chills, cough, abdominal pain, vomiting, dysuria/hematuria Related Data Previous Rx's ?Medication ?Instructions ?Recorded albuterol sulfate 90 mcg/actuation 2 inh inhalation Q6H PRN shortness 02/02/23 aerosol inhaler of breath or wheezing 30 days #18 grams cholecalciferol (vitamin D3) 25 25 mcg PO DAILY 90 days #90 caps 05/31/24 mcg (1,000 unit) capsule apixaban 5 mg (74 tabs) tablets in See Rx Instructions PO PER PKG DIR 06/09/24 a dose pack (Eliquis DVT-PE Treat #74 ea 30D Start) Allergies Allergy/AdvReac Type Severity Reaction Status Date / Time adhesive Allergy Severe Rash Verified 06/11/24 09:11 nystatin Allergy Intermediate Hives Verified 06/11/24 09:11 sulfide Allergy Intermediate Hives Uncoded 06/11/24 09:11 Review of Systems 2 Review of Systems: Yes all other systems are reviewed and are negative Constitutional: Constitutional: Reports as per HPI Neurologic: Denies Abnormal speech present [facility] Past Medical History Attestation statement: The following information was validated with the patient. Source: old records reviewed Medical History Levoscoliosis Osteoarthritis Dyspnea Breast cancer Pulmonary nodule Surgical History Hx of colonoscopy History of knee replacement procedure of right knee History of knee replacement procedure of left knee S/P lumpectomy, right breast Family History Family History Father Scoliosis Gout HTN (hypertension) CVA (cerebral vascular accident) Mother Colon cancer CHF (congestive heart failure) Anxiety Depression Migraine COPD (chronic obstructive pulmonary disease) Cancer HTN (hypertension) CVA (cerebral vascular accident) Son SMA (spinal muscular atrophy) Carotid artery aneurysm Anterior horn cell disease Other Uterine cancer Social History Social History Household Members: Spouse Housing: Apartment Are you a primary rn care transition to a significant other at home: No Do you presently have visiting nurse or other home services: No Alcohol intake: current Alcohol intake frequency: a few times a week Alcohol type: wine Patient Tobacco Use Status: Never used Tobacco Smoked in Last 30 Days: No e-Cigarette/Vaping Use: Never Used Use of substances other than those prescribed or required for medical reasons: No Advance Directives: Yes Advance Directives Information Provided: Yes Advance Directives on File: No Do you have a plan to hurt others: No Plan service: No Current occupational status: retired Cognitive needs: No Hearing needs: No Vision needs: No Physical Exam ED Vital Signs: Vital Signs - 24 hr 06/11/24 09:04 06/11/24 09:20 06/11/24 14:26 Temperature 98.8 F 100.2 F 97.8 F Pulse Rate 125 H 106 H Respiratory Rate 18 19 Blood Pressure 120/33 L 104/31 L Pulse Oximetry 97 97 Oxygen Delivery Method Room Air 06/11/24 15:26 Temperature 98.4 F Pulse Rate 101 H Respiratory Rate 16 Blood Pressure 95/42 L Pulse Oximetry 97 Oxygen Delivery Method Room Air BMI result Body Mass Index 37.0 Const General: cooperative, healthy appearing and no acute distress Orientation/consciousness: patient oriented x3 Limitations: no limitations HENMT Head: Yes normal to inspection and Yes atraumatic Ears: hearing grossly normal bilaterally General nose exam: Normal external nose present Face and sinus: Yes normal facial exam Eyes General: appearance normal, both eyes and all related structures EOM: EOMs intact bilaterally Neck Neck: Yes normal visual inspection and Yes no meningeal signs Resp Effort & Inspection: normal respiratory effort and no respiratory distress Auscultation: clear to auscultation bilaterally, no crackles, no rhonchi and no wheezes Cardio Rate: regular rate Heart sounds: S1 normal heart sound present and S2 normal heart sound present GI Inspection: Yes normal to inspection Palpation (GI): Soft to palpation, nontender, no guarding and not rigid Skin Rashes: no rashes Wounds: no wounds Neuro General: patient oriented x3, tone normal, moves all extremities, no meningeal signs, no focal motor deficits and CN's II-XI intact bilaterally Cranial nerves: Yes CN's II-XII intact bilaterally Cognition (Neuro): normal cognition Speech: No Abnormal speech present Motor exam (neuro): 5/5 motor strength present throughout Extrem Other: 1+ RLE pitting edema 3+ LLE pitting edema Course Course Course Narrative: -1130--leukocytosis of 15.9. + bandemia 16%. Anemic to 10.6/33.1. -INR 2.4 -potassium low at 2.7 > p.o. and IV repletion ordered. Lactic acid elevated at 3.1. -trop negative. Viral testing negative XR chest 1V IMPRESSION: Left-sided pleural effusion, moderate volume. 1300-CT angio chest PE protocol IMPRESSION: 1. Positive examination for right lower lobe pulmonary embolus. This does not meet criteria for submassive PE. 2. No evidence of acute aortic syndrome or aneurysm. 3. Elevated left hemidiaphragm. Small to moderate-sized left pleural effusion with associated passive atelectasis left lower lobe and lingula. Associated discoid atelectasis in the aerated left lower lobe. 4. Diffuse small airway thickening in keeping with inflammatory or infectious airways disease. 5. Mild anasarca. CT abdomen pelvis w IV con IMPRESSION: Findings consistent with diverticulitis involving the descending colon. There is a 10.0 x 7.4 x 5.3 cm abscess involving the left psoas and iliacus muscles. Findings were discussed with MAURICE Ponce the emergency room on 06/11/2024 12:52 PM. >1306- will consult General surgery and IR -1408--Dr. Waller (general surgery) recommends IR drainage, medicine admit and surgery will consult. -1514-have called IR multiple times w/o hearing back, did spoke with IR nurse once, still waiting to hear back from MAURICE or . > spoke with Dr. Yepez from IR recommends 48 hour hold on Eliquis prior to intervention > IR drainage can not on current told Friday > cleared with Dr. Waller who believes patient can wait until Friday for IR drainage -UA infected -case discussed with hospitalist, Medina CALHOUN > hospitalist team declined admission due to concern of patient decompensation in inability to intervene over the weekend without IR coverage. -1633--[facility] unable to accept patient for > 24hrs due to capacity. [facility] unable to accept transfer due to capacity -1649--patient accepted to [facility] ED to ED transfer accepting physician Dr. Munir Christianson. -Will initiate Heparin bolus & drip -made aware by patient's nurse that her RUE became acutely swollen in the ED. Patient denies pain. Neurovascularly intact. Will obtain ultrasound to r/o UE DVT Medications Administered Discontinued Medications Generic Name Dose Route Start Last Admin Trade Name Freq PRN Reason Stop Dose Admin Piperacillin Sod/Tazobactam 50 mls @ 100 mls/hr 06/11/24 10:34 06/11/24 11:41 Sod 3.375 gm/ Sodium Chloride IV 06/11/24 11:03 100 mls/hr ONCE ONE Administration Sodium Chloride 1,000 mls @ 999 mls/hr 06/11/24 11:00 06/11/24 11:43 Ns IV 06/11/24 12:00 999 mls/hr .Q1H1M CHERISE Administration Potassium Chloride 10 meq in 100 mls @ 100 mls/hr 06/11/24 11:00 06/11/24 13:52 Potassium Chloride/H20 IV 06/11/24 12:59 100 mls/hr Q1H CHERISE Administration Vancomycin HCl 2,000 mg in 500 mls @ 250 mls/hr 06/11/24 13:52 06/11/24 15:25 Vancomycin/Ns IV 06/11/24 15:51 250 mls/hr ONCE ONE Administration Sodium Chloride 1,000 mls @ 999 mls/hr 06/11/24 15:45 06/11/24 15:51 Ns IV 06/11/24 16:45 999 mls/hr .Q1H1M CHERISE Administration Iohexol 85 ml 06/11/24 12:16 06/11/24 12:17 Iohexol 350 Mg/Ml 75 Ml Infus..Btl IV 06/11/24 12:17 85 ml ONCE ONE Administration Potassium Chloride 40 meq 06/11/24 10:49 06/11/24 10:59 Potassium Chloride Packet 20 Meq Packet PO 06/11/24 10:50 40 meq ONCE ONE Administration Medical Decision Making Medical Decision Making [facility] Narrative: 73-year-old female with a past medical history HTN, bronchiectasis, solitary pulmonary nodule, osteopenia, gastric bypass, neurofibromatosis, breast CA, anxiety, sinus tachycardia, recently diagnosed LLE DVT started on Eliquis on 06/08/2024, presenting to the ED today complaining of generalized fatigue/weakness over the past few weeks with difficulty performing ADLs, and LLE swelling/pain. Also reports weight loss x few months, and some difficulty with word finding x1 month & diarrhea. On exam tachycardic, low-grade temp 100.2 degrees, NAD, no focal deficits, bilateral LE pitting edema appreciated greater to the LLE. Concern for subacute CVA vs metabolic/infectious etiologies vs PE vs arrhythmia vs malignancy vs deconditioning/FTT. Lower suspicion for dissection, ACS, meningitis/encephalitis Plan: EKG, labs, UA, CXR, head CT, CT chest, abdomen/pelvis, anticipated admission Please refer to course for remaining clinical decision making, interpretation of labs/imaging results, and discussions with consultants and/or family members. Differential Diagnosis Differential Diagnoses: The differential diagnosis associated with the presentation includes As above Admission/Observation Consideration of admission/observation: Escalation of care including admission/observation considered Consult Healthcare Provider Management of the patient was discussed with: Hospitalist Lab Data [facility] Lab Attestation statement: I reviewed the patient's lab results. 06/11/24 10:02 06/11/24 10:02 Labs: Lab Results 06/11/24 06/11/24 06/11/24 Range/Units 10:02 14:32 15:38 WBC 15.9 H (4.8-10.8) X10*3/uL RBC 3.33 L D (4.20-5.50) X10*6/uL Hgb 10.6 L D (12.0-16.0) g/dl Hct 33.1 L D (37.0-47.0) % MCV 99.4 H (80.0-98.0) fL MCH 31.8 (27.0-33.0) pg MCHC 32.0 (31.0-35.0) g/dl RDW 17.5 H (11.0-16.0) % Plt Count 314 (160-400) X10*3/uL MPV 8.2 L (9.4-12.3) fL Immature Gran % (Auto) Cancelled Neut % (Auto) Cancelled Lymph % (Auto) Cancelled [place] % (Auto) Cancelled Eos % (Auto) Cancelled Baso % (Auto) Cancelled Lymph # (Auto) Cancelled [place] # (Auto) Cancelled Eos # (Auto) Cancelled Baso # (Auto) Cancelled Abs Immat Gran (auto) Cancelled Absolute Neuts (auto) Cancelled Absolute Nucleated RBC 0.000 (0.0-0.012) X10*3/uL Nucleated RBC % (auto) 0.0 (0.0-0.2) /100WBC Neutrophils % (Manual) 75 H (45-73) % Band Neutrophils % 16 H (3-5) % Lymphocytes % (Manual) 5 L (20-40) % Monocytes % (Manual) 3 (2-11) % Basophils % (Manual) 1 (0-2) % Abs Neuts (Manual) 14.5 H (2.0-8.3) X10*3/uL Lymphocytes # (Manual) 0.8 L (1.2-4.9) X10*3/uL Atyp Lymphs # (Manual) 0.2 x10*3/uL Monocytes # (Manual) 0.5 (0.1-1.2) X10*3/uL Basophils # (Manual) 0.2 (0.0-0.2) X10*3/uL Dohle Bodies PRESENT Platelet Estimate NORMAL (NORMAL) Plt Morphology Comment NORMAL RBC Morphology NOTED Polychromasia 1+ (0-2) /OIF Macrocytosis 1+ (5-14) /OIF Ovalocytes 1+ (5-14) /OIF Acanthocytes (Spur) 1+ (0-2) /OIF PT 28.4 H (10.9-12.4) SEC INR 2.4 H (0.9-1.1) Sodium 136 (135-145) mmol/L Potassium 2.7 L* D (3.3-5.1) mmol/L Chloride 97 (96-108) mmol/L Carbon Dioxide 30 H (22-29) mmol/L Anion Gap 12 (12-20) BUN 12 (9-16) mg/dL Creatinine 0.60 (0.5-1.4) mg/dL Estim Creat Clear Calc 84.9 Estimated GFR > 60 Random Glucose 101 (60-115) mg/dL Lactic Acid 3.1 H* (0.5-2.0) mmol/L Lactic Acid F/U @ 2Hr 2.1 H* (0.5-2.0) mmol/L Calcium 7.4 L D (8.4-10.2) mg/dL Magnesium 1.8 (1.6-2.6) mg/dL Total Bilirubin 1.0 (0.0-1.0) mg/dL Direct Bilirubin 0.6 H (0.0-0.5) mg/dL AST 16 (5-31) U/L ALT < 6 (0-31) U/L Alkaline Phosphatase 107 (39-117) U/L Troponin I High Sens < 2.7 (<3.5-17.0) ng/L B-Natriuretic Peptide 46 (<100) pg/mL Total Protein 5.4 L (6.5-8.0) g/dL Albumin 1.8 L (3.5-5.0) g/dL Lipase < 4 L (8-78) U/L Urine Color Dark Yellow Urine Appearance Clear Urine pH 5.5 (5.0-9.0) Ur Specific [place] >= 1.030 H (1.005-1.025) Urine Protein 30 (1+) H (Neg-Trace) mg/dL Urine Glucose (UA) Negative (Negative) mg/dL Urine Ketones Trace (Negative) mg/dL Urine Blood Trace H (Negative) Urine Nitrite Positive H (Negative) Ur Leukocyte Esterase Moderate (2+) H (Negative) Urine RBC 0-2 (0-2) /HPF Urine WBC >50 H (0-5) /HPF Ur Squamous Epith Cells 3-5 (0-2) /HPF Urine Bacteria 4+ (None Seen) Hyaline Casts 0-2 (0-2) /LPF Influenza Type A (PCR) NEGATIVE (Negative) Influenza Type B (PCR) NEGATIVE (Negative) RSV RNA Qual (PCR) NEGATIVE (Negative) SARS-CoV-2 RNA (RT-PCR) NEGATIVE (Negative) 06/11/24 Range/Units 17:08 WBC (4.8-10.8) X10*3/uL RBC (4.20-5.50) X10*6/uL Hgb (12.0-16.0) g/dl Hct (37.0-47.0) % MCV (80.0-98.0) fL MCH (27.0-33.0) pg MCHC (31.0-35.0) g/dl RDW (11.0-16.0) % Plt Count (160-400) X10*3/uL MPV (9.4-12.3) fL Immature Gran % (Auto) Neut % (Auto) Lymph % (Auto) [place] % (Auto) Eos % (Auto) Baso % (Auto) Lymph # (Auto) [place] # (Auto) Eos # (Auto) Baso # (Auto) Abs Immat Gran (auto) Absolute Neuts (auto) Absolute Nucleated RBC (0.0-0.012) X10*3/uL Nucleated RBC % (auto) (0.0-0.2) /100WBC Neutrophils % (Manual) (45-73) % Band Neutrophils % (3-5) % Lymphocytes % (Manual) (20-40) % Monocytes % (Manual) (2-11) % Basophils % (Manual) (0-2) % Abs Neuts (Manual) (2.0-8.3) X10*3/uL Lymphocytes # (Manual) (1.2-4.9) X10*3/uL Atyp Lymphs # (Manual) x10*3/uL Monocytes # (Manual) (0.1-1.2) X10*3/uL Basophils # (Manual) (0.0-0.2) X10*3/uL Dohle Bodies Platelet Estimate (NORMAL) Plt Morphology Comment RBC Morphology Polychromasia /OIF Macrocytosis /OIF Ovalocytes /OIF Acanthocytes (Spur) /OIF PT 26.8 H (10.9-12.4) SEC INR 2.3 H (0.9-1.1) Sodium (135-145) mmol/L Potassium (3.3-5.1) mmol/L Chloride (96-108) mmol/L Carbon Dioxide (22-29) mmol/L Anion Gap (12-20) BUN (9-16) mg/dL Creatinine (0.5-1.4) mg/dL Estim Creat Clear Calc Estimated GFR Random Glucose (60-115) mg/dL Lactic Acid (0.5-2.0) mmol/L Lactic Acid F/U @ 2Hr (0.5-2.0) mmol/L Calcium (8.4-10.2) mg/dL Magnesium (1.6-2.6) mg/dL Total Bilirubin (0.0-1.0) mg/dL Direct Bilirubin (0.0-0.5) mg/dL AST (5-31) U/L ALT (0-31) U/L Alkaline Phosphatase (39-117) U/L Troponin I High Sens (<3.5-17.0) ng/L B-Natriuretic Peptide (<100) pg/mL Total Protein (6.5-8.0) g/dL Albumin (3.5-5.0) g/dL Lipase (8-78) U/L Urine Color Urine Appearance Urine pH (5.0-9.0) Ur Specific [place] (1.005-1.025) Urine Protein (Neg-Trace) mg/dL Urine Glucose (UA) (Negative) mg/dL Urine Ketones (Negative) mg/dL Urine Blood (Negative) Urine Nitrite (Negative) Ur Leukocyte Esterase (Negative) Urine RBC (0-2) /HPF Urine WBC (0-5) /HPF Ur Squamous Epith Cells (0-2) /HPF Urine Bacteria (None Seen) Hyaline Casts (0-2) /LPF Influenza Type A (PCR) (Negative) Influenza Type B (PCR) (Negative) RSV RNA Qual (PCR) (Negative) SARS-CoV-2 RNA (RT-PCR) (Negative) Independent Interpretation I performed an independent interpretation of an: EKG (My interpretation EKG sinus tachycardia rate of 160 with respiratory variation. QTC 404. No previous to compare), Plain X-Ray and CT Scan Radiology Impression Discussion of test interpretation with radiology: I have reviewed the radiologist's reading. Independent Historian Clinical information obtained from an independent historian. History obtained from or confirmed by: Spouse and EMS External Record Review External record reviewed: Inpatient record, Office record, Outpatient record, Prior outpatient labs, Prior outpatient radiology, Primary care record and Outside ED record Tests considered The following testing was considered but not selected: As above Prescription Management I considered prescription management with: Other Chronic Conditions Patient?s care impacted by: Hypertension and Other (DVT ) Social Determinants Patient?s care significantly limited by Social Determinants of Health including: Alcoholism and drug addiction in family and Other Social Determinant of Health Critical Care Time Critical Care Time Critical Care Time: Yes Total Critical Care Time: 60 Attestation: I have personally provided critical care time exclusive of time spent on separately billable procedures. Time includes review of lab data, radiology results, discussion with consultants, and monitoring for potential decompensation. Intervention performed as documented. Discharge Plan Discharge Clinical Impression: Pulmonary embolism, Diverticulitis of large intestine with complication Patient Disposition: [facility] Transfer Details: [facility] ED to ED accepting Dr. Christianson Prescriptions: No Action albuterol sulfate 90 mcg/actuation HFA aerosol inhaler 2 inh inhalation Q6H PRN (Reason: shortness of breath or wheezing) 30 Days Qty: 18 12RF cholecalciferol (vitamin D3) 25 mcg (1,000 unit) capsule 25 mcg PO DAILY 90 Days Qty: 90 1RF Eliquis DVT-PE Treat 30D Start 5 mg (74 tabs) tablets,dose pack See Rx Instructions PO PER PKG DIR Qty: 74 0RF Rx Instructions: 2 Tabs twice a day for 10 days then 1 tablet twice a day. Print Language: [place]
[2024-06-11 10:27] LABS: Hematocrit 33.1 % (37.0-47.0); Hemoglobin 10.6 g/dl (12.0-16.0); Mean Corpuscular Hemoglobin 31.8 pg (27.0-33.0); Mean Corpuscular Volume 99.4 fL (80.0-98.0); Mean Platelet Volume 8.2 fL (9.4-12.3); Platelet Count 314 X10*3/uL (160-400); Red Blood Count 3.33 X10*6/uL (4.20-5.50); Red Cell Distribution Width 17.5 % (11.0-16.0); White Blood Count 15.9 X10*3/uL (4.8-10.8)
[2024-06-11 10:29] LABS: INTERNATIONAL NORM RATIO 2.4 (0.9-1.1); Prothrombin Time 28.4 SEC (10.9-12.4)
[2024-06-11 10:43] LABS: B Type Natriuretic Peptide 46 pg/mL (<100)
[2024-06-11 10:45] LABS: Troponin-I High Sensitivity < 2.7 ng/L (<3.5-17.0)
[2024-06-11 10:46] LABS: Alanine Aminotransferase < 6 U/L (0-31); Albumin Level 1.8 g/dL (3.5-5.0); Alkaline Phosphatase 107 U/L (39-117); Anion Gap 12 (12-20); Aspartate Amino Transferase 16 U/L (5-31); Bilirubin Direct 0.6 mg/dL (0.0-0.5); Blood Urea Nitrogen 12 mg/dL (9-16); Calcium 7.4 mg/dL (8.4-10.2); Carbon Dioxide 30 mmol/L (22-29); Chloride 97 mmol/L (96-108); Creatinine Clr Calc Pharmacy 84.9; Estimated Glomerular Filt Rate > 60; Glucose Random 101 mg/dL (60-115); Lipase < 4 U/L (8-78); Magnesium 1.8 mg/dL (1.6-2.6); Potassium 2.7 mmol/L (3.3-5.1); Sodium 136 mmol/L (135-145); Total Protein 5.4 g/dL (6.5-8.0)
[2024-06-11 10:49] LABS: Lactic Acid 3.1 mmol/L (0.5-2.0)
[2024-06-11 10:51] LABS: Neutrophils Percent Manual 75 % (45-73)
[2024-06-11 10:55] LABS: Atypical Lymph Absolute Manual 0.2 x10*3/uL; Band Neutrophils Percent 16 % (3-5); Basophils Abs Manual 0.2 X10*3/uL (0.0-0.2); Basophils Percent Manual 1 % (0-2); Lymphocytes Absolute Manual 0.8 X10*3/uL (1.2-4.9); Lymphocytes Percent Manual 5 % (20-40); Neutrophils Absolute Manual 14.5 X10*3/uL (2.0-8.3)
[2024-06-11 10:57] LABS: RBC Morphology NOTED
[2024-06-11 10:58] LABS: Macrocytosis 1+ (5-14) /OIF; Monocytes Absolute Manual 0.5 X10*3/uL (0.1-1.2); Monocytes Percent Manual 3 % (2-11)
[2024-06-11] MEDS: Potassium Chloride Packet 20 MEQ PACKET 40 MEQ PO (10:59)
[2024-06-11 11:00] LABS: Acanthocytes 1+ (0-2) /OIF; Dohle Bodies PRESENT; Ovalocytes 1+ (5-14) /OIF; Platelet Estimate NORMAL (NORMAL); Platelet Morphology Comment NORMAL; Polychromasia 1+ (0-2) /OIF
[2024-06-11 11:25] LABS: Influenza A PCR NEGATIVE (Negative); Influenza B PCR NEGATIVE (Negative); Resp Syncy Virus RNA Qual PCR NEGATIVE (Negative); SARS COV2 PCR INHOUSE NEGATIVE (Negative)
[2024-06-11] MEDS: Piperacillin Sodium/Tazobactam 3.375 GM in 0.9 % Sodium Chloride 50 ML IV (11:41)
[2024-06-11] MEDS: 0.9 % Sodium Chloride 1,000 ML 999 ML IV ×2 (11:43→15:51)
--- NOTE | 2024-06-11 11:46 | PC.NURSE ---
multiple attempts to get 2nd set of cultures unsuccessful, will get another pct to attempt, antibiotic given as pt has had 1 culture
[2024-06-11 12:16] LABS: Reflex Lactate? Lactic Acid Added
[2024-06-11] MEDS: iohexoL 350 MG/ML 75 ML INFUS..BTL 85 ML IV (12:17)
[2024-06-11] MEDS: Potassium Chloride/H20 10 MEQ/100 ML PIGGYBACK 100 MEQ IV ×2 (12:34→13:52)
[2024-06-11 14:26] VITALS: BP 104/31; PULSE 106; RESP 19; TEMP 36.6; O2SAT 97
[2024-06-11] MEDS: vancomycin/NS 2,000 MG/500 ML PLAST..BAG 250 MG IV (15:25)
[2024-06-11 15:26] VITALS: BP 95/42; PULSE 101; RESP 16; TEMP 36.9; O2SAT 97
[2024-06-11 15:29] LABS: ~Lactic Acid-LAB USE ONLY 2.1 mmol/L (0.5-2.0)
[2024-06-11 15:53] LABS: Appearance Urine Clear; Color Urine Dark Yellow; Glucose Urine UA Negative (Negative); Leukocyte Esterase Urine Moderate (2+) (Negative); Nitrite Urine Positive (Negative); PH 5.5 (5.0-9.0); Specific Gravity - Urine >= 1.030 (1.005-1.025); UMIC TRIGGER UACC YES; Urine Blood Trace (Negative); Urine Ketones Trace mg/dL (Negative); Urine Protein 30 (1+) mg/dL (Neg-Trace)
[2024-06-11 16:04] LABS: Bacteria Urine 4+ (None Seen); Hyaline Casts Urine 0-2 /LPF (0-2); RBC Urine 0-2 /HPF (0-2); UACC Culture Trigger YES; WBC Urine >50 /HPF (0-5)
--- NOTE | 2024-06-11 16:09 | PHA.MEDREC ---
Addendum entered by Anthony Tony [facility] 06/11/24 16:31: med rec reviewed Original Note: Pharmacy Consult ? Medication Reconciliation Pharmacy has completed the medication reconciliation. Spoke with patient and she was able to confirm her medications. Patient confirmed she is on day 3 of the Elqiuis regimen and states she is taking 2 tablets twice a day for 10 days and then she is going to start taking 1 tablet twice a day there-after. She confirmed she stopped taking the Diltiazem and Escitalopram a few months ago due to getting low blood pressure while taking these. She also stopped taking the Metoprolol after taking 1 dose due to making the patient way too weak when she took it. She confirmed she took her Eliquis and Vitamin D3 tablets this morning @0745.
[2024-06-11 16:34] LABS: Reflex Lactate? 2 Y
[2024-06-11 17:19] LABS: INTERNATIONAL NORM RATIO 2.3 (0.9-1.1); Prothrombin Time 26.8 SEC (10.9-12.4)
[2024-06-11 17:25] VITALS: BMI 37.0
[2024-06-11] MEDS: Heparin Sodium,Porcine 5,000 UNIT/ML VIAL 7100 UNIT IVPUSH (17:35)
[2024-06-11] MEDS: Heparin Sodium,Porcine/1/2NS 25,000 UNIT/250 ML IV.SOLN 12.38 UNIT IVCONT (17:51)
[2024-06-11 17:55] VITALS: BP 101/49; PULSE 100; RESP 19; TEMP 36.4; O2SAT 98
--- NOTE | 2024-06-11 18:11 | PC.NURSE ---
report called to Mony
== END 2024-06-11 18:11 | disposition short-term general hospital (02) ==
PROVIDERS: Physician Assistant; Emergency Provider Emergency Medicine; PCP Nurse Practitioner Family
DX: I26.99 Other pulmonary embolism without acute cor pulmonale (principal); I82.4Z2 Acute embolism and thrombosis of unspecified deep veins of left distal lower extremity; K57.32 Diverticulitis of large intestine without perforation or abscess without bleeding; R60.0 Localized edema; R53.1 Weakness; R19.7 Diarrhea, unspecified; R00.0 Tachycardia, unspecified; R06.02 Shortness of breath; R26.81 Unsteadiness on feet; Z79.01 Long term (current) use of anticoagulants; Z03.818 Encounter for observation for suspected exposure to other biological agents ruled out; Z79.899 Other long term (current) drug therapy
CPT/HCPCS: 0241U; 36415; 70450; 71045; 71275; 74177; 80048; 80076; 81001; 83605; 83690; 83735; 83880; 84484; 85007; 85027; 85610; 87040; 87086; 87088; 87186; 93005; 93971; 96365; 96375; 99284; 99285; J1644; J2543; J3370; J3480; Q9967

== ENCOUNTER → 2024-06-11 09:12 | Outpatient (BNV) | payer OTHER, SELFPAY | PROVIDERS: Emergency Provider Emergency Medicine; PCP Psychiatry & Neurology Neurology; Visit Provider Internal Medicine | DX: R94.31 Abnormal electrocardiogram [ECG] [EKG] (principal); R53.1 Weakness | CPT/HCPCS: 93010 ==

== ENCOUNTER → 2024-06-11 09:42 | Outpatient (BNV) | payer OTHER, SELFPAY | PROVIDERS: Emergency Provider Emergency Medicine; PCP Psychiatry & Neurology Neurology; Visit Provider Radiology Diagnostic Radiology | DX: K68.12 Psoas muscle abscess (principal); I26.99 Other pulmonary embolism without acute cor pulmonale; J90 Pleural effusion, not elsewhere classified; J98.11 Atelectasis; R47.01 Aphasia; R22.41 Localized swelling, mass and lump, right lower limb | CPT/HCPCS: 70450; 71045; 71275; 74177; 93971 ==

== ENCOUNTER 2024-08-26 10:06 | Outpatient (REF) | payer MEDICARE, SELFPAY ==
[2024-08-26 10:34] LABS: MANUAL DIFF FLAG NO
[2024-08-26 11:16] LABS: Basophils Absolute Auto 0.1 X10*3/uL (0.0-0.2); Basophils Percent Auto 0.7 % (0-2); Eosinophils Absolute Auto 0.1 X10*3/uL (0.0-0.4); Eosinophils Percent Auto 1.6 % (0-4); Hematocrit 35.7 % (37.0-47.0); Imm Gran Abs Auto 0.04 X10*3/uL (0.00-0.03); Imm Gran Pct Auto 0.6 % (0.0-0.4); Lymphocytes Absolute Auto 1.6 X10*3/uL (1.2-4.9); Lymphocytes Percent Auto 23.2 % (20-40); Mean Corpuscular HGB Conc 30.8 g/dl (31.0-35.0); Mean Corpuscular Hemoglobin 30.1 pg (27.0-33.0); Mean Corpuscular Volume 97.5 fL (80.0-98.0); Mean Platelet Volume 8.7 fL (9.4-12.3); Monocytes Absolute Auto 0.4 X10*3/uL (0.1-1.2); Monocytes Percent Auto 6.3 % (2-11); Neutrophils Absolute Auto 4.7 x10*3/uL (2.0-8.3); Neutrophils Percent Auto 67.6 % (45-73); Platelet Count 401 X10*3/uL (160-400); Red Blood Count 3.66 X10*6/uL (4.20-5.50); Red Cell Distribution Width 14.3 % (11.0-16.0)
[2024-08-26 11:22] LABS: Alanine Aminotransferase 9 U/L (0-31); Alkaline Phosphatase 61 U/L (39-117); Anion Gap 11 (12-20); Aspartate Amino Transferase 25 U/L (5-31); Bilirubin Total 0.2 mg/dL (0.0-1.0); Blood Urea Nitrogen 7 mg/dL (9-16); Calcium 9.1 mg/dL (8.4-10.2); Carbon Dioxide 29 mmol/L (22-29); Chloride 107 mmol/L (96-108); Estimated Glomerular Filt Rate > 60; Glucose Random 91 mg/dL (60-115); Potassium 3.6 mmol/L (3.3-5.1); Sodium 143 mmol/L (135-145); Total Protein 6.6 g/dL (6.5-8.0)
[2024-08-26 11:23] LABS: Anion Gap 11 (12-20); Blood Urea Nitrogen 7 mg/dL (9-16); Carbon Dioxide 29 mmol/L (22-29); Chloride 108 mmol/L (96-108); Potassium 3.6 mmol/L (3.3-5.1); Sodium 144 mmol/L (135-145)
[2024-08-26 11:24] LABS: Calcium 9.3 mg/dL (8.4-10.2); Estimated Glomerular Filt Rate > 60
--- OUTSIDE RECORDS SUMMARY | 2024-08-26 11:26 | XMS_ITS | Clinical Summary ---
Author Organization [facility] Address [address] [place] [address] Care Team Providers Care All Source Intelligence Name Role Phone Pcp, No Primary Care Provider Unavailabl e Allergies Active Allergy Reactions Criticality Noted Date Comments Adhesives/Tape Rash/Dermatitis Low 02/18/2011 Sulfa Antibiotics Hives Medium 02/18/2011 Wheat Other (See Comments) Low 06/12/2024 Sneezing Medications Vitamin D3 (CHOLECALCIFERO L) 25 MCG (1000 UT) Cap Take 1,000 Units by mouth daily. 5 Active diltiazem (CARDIZEM CD) 300 MG 24 hr capsule Take 1 capsule (300 mg total) by mouth daily. Active escitalopram (LEXAPRO) 10 MG tablet Take 1 tablet (10 mg total) by mouth daily. Active albuterol (PROVENTIL HFA; VENTOLIN HFA) 108 (90 Base) MCG/ACT inhaler Inhale 2 puffs 4 times daily (every 6 hours) as needed for wheezing or shortness of breath. Active apixaban (ELIQUIS) 5 MG tabletIndicatio ns:Diverticulit is Take 1 tablet (5 mg total) by mouth every 12 (twelve) hours around the clock. 5 Active acetaminophen (TYLENOL) 325 MG tabletIndicatio ns:Diverticulit is Take 3 tablets (975 mg total) by mouth 4 times daily (every 6 hours) as needed for mild pain or headaches. 5 Active famotidine (PEPCID) 20 MG tabletIndicatio ns:Diverticulit is Take 1 tablet (20 mg total) by mouth 2 (two) times a day. 5 Active multivitamin with minerals Tab tabletIndicatio ns:Diverticulit is Take 1 tablet by mouth daily. 5 Active nystatin (MYCOSTATIN) 511812 UNIT/GM creamIndication s:Diverticuliti s Apply topically 2 (two) times a day. 5 Active PANTOprazole (PROTONIX) 40 MG EC tabletIndicatio ns:Diverticulit is Take 1 tablet (40 mg total) by mouth 2 times a day. 5 Active metoPROLOL TARTRATE (LOPRESSOR) 25 MG tabletIndicatio ns:Diverticulit is Take 1 tablet (25 mg total) by mouth every 12 (twelve) hours around the clock. 5 Active diltiazem (CARDIZEM) 60 MG tabletIndicatio ns:Diverticulit is Take 1 tablet (60 mg total) by mouth 4 (four) times a day before meals and nightly. 5 Active potassium chloride (K-TAB) 20 MEQ CR tablet 5 Active amoxicillin-cla vulanate (AUGMENTIN) 875-125 MG per tabletIndicatio ns:Psoas abscess (HCC) Take 1 tablet by mouth 2 (two) times a day. 60 tablet 1 5 10/16/19 25 Active amoxicillin-cla vulanate (AUGMENTIN) 875-125 MG per tablet Take 1 tablet by mouth 2 (two) times a day. 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); Psoas abscess (HCC) 08/20/2024 Travel 08/16/2024 1:30 PM EDT Telemedicine [facility] Department of Infectious Disease [address] [phone] Saray Gross MD Psoas abscess (HCC) (Primary Dx) 08/06/2024 1:20 PM EDT Procedure visit [facility] Colorectal Surgery [address] [phone] Nayla Soliman PA 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); Psoas abscess (HCC) 08/06/2024 Travel 08/04/2024 Orders Only [facility] [address] [place] [address] Saray Gross MD 08/03/2024 Telephone [facility] Colorectal Surgery [address] [phone] Cristiano Staton MD 07/30/2024 1:00 PM EDT Procedure visit [facility] Colorectal Surgery [address] [phone] Nayla Soliman PA 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); Psoas abscess (HCC) 07/30/2024 Travel 07/27/2024 Telephone [facility] Colorectal Surgery [address] [phone] Cristiano Staton MD 07/26/2024 1:15 PM EDT Office Visit [facility] Department of Infectious Disease [address] [phone] Saray Gross MD Psoas abscess (HCC) (Primary Dx) 07/26/2024 Travel 07/23/2024 1:00 PM EDT Clinical Support [facility] Colorectal Surgery [address] [place] [phone] Britany Jimenez RN 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) 07/23/2024 1:00 PM EDT Clinical Support [facility] Colorectal Surgery [address] [phone] Nayla Soliman PA 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); Psoas abscess (HCC) 07/23/2024 Travel 07/21/2024 Telephone [facility] Colorectal Surgery [address] [place] [address] Britany Jimenez RN 07/21/2024 Telephone [facility] Colorectal Surgery [address] [place] [address] Cristiano Staton MD 07/19/2024 Telephone [facility] Colorectal Surgery [address] [place] [address] Cristiano Staton MD 07/16/2024 1:00 PM EDT Clinical Support [facility] Colorectal Surgery [address] [place] [address] Britany Jimenez, RN 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) 07/16/2024 1:00 PM EDT Office Visit [facility] Colorectal Surgery [address] [place] [address] Nayla Soliman PA Psoas abscess (HCC) (Primary Dx); Colostomy in place (HCC) 07/16/2024 Travel 06/28/2024 2:07 PM EDT Anesthesia Event [facility] Gastro[facility]ology [facility] [address] [place] [phone] Osvaldo Schaefer MD Edison, Amanda C, PA-C 06/28/2024 1:30 PM EDT - 06/28/2024 1:57 PM EDT Surgery [facility] [address] [place] [address], [place] [phone] Munir Grover MD ENDOSCOPY UPPER 06/15/2024 12:16 PM EDT Anesthesia Event [facility] [address] [place] [phone] Cong Gamble MD Gordon, Jennifer L, PA-C 06/15/2024 10:15 AM EDT - 06/15/2024 1:45 PM EDT Surgery [facility] [address] [place] [address] Cristiano Staton MD LAPAROTOMY EXPLORATORY-LEFT COLECTOMY, SMALL BOWEL RESECTION, OSTOMY CREATION, DRAINAGE OF RETROPERITONEAL ABSCESS 06/11/2024 7:11 PM EDT - 07/02/2024 8:29 PM EDT Hospital Encounter [facility] 8 [address] [facility] [place] [place] [address] Elena Farmer MD Khan, MD Eliza Donald Mitchell H, MD Douillard, Widz, MD Addai-Boateng, Hassana, MD Vignati, Paul V, MD Diverticulitis (Primary Dx); Psoas abscess (HCC); Pulmonary embolism (HCC); Hematemesis with nausea Discharge Disposition: [facility] Facility 06/11/2024 Travel from Last 3 Months Social History Tobacco Use Types Packs/Day Years Used Date Smoking Tobacco: Never Assessed [facility] Utilities Answer Date Recorded In the past 12 months has [employer], gas, oil, or water [employer] threatened to shut off services in your home? No 06/14/2024 AUDIT-C Answer Date Recorded Q1: How often do you have a drink containing alc ohol? Monthly or less 06/13/2024 Q2: How many drinks containi ng alcohol do you have on a typical day when you are drinking? 1 or 2 06/13/2024 Q3: How often do you have si x or more drinks on one occasion? Less than monthly 06/13/2024 Overall Financial Resource Strain (CARDIA) Answe r Date Recorded How hard is it for you to pa y for the very basics like food, housing, medical care, and heating? Not hard at all 06/14/2024 Hunger Vital Sign Answer Date Recorded Within the past 12 months, y ou worried that your food would run out before you got the money to buy more. Never true 06/15/19 25 Within the past 12 months, t he food you bought just didn't last and you didn't have money to get more. Never true 06/14/2024 PRAPARE - Transportation Answer Date Re corded In the past 12 months, has l ack of transportation kept you from medical appointments or from getting medications? No 09/2024 In the past 12 months, has l ack of transportation kept you from meetings, work, or from getting things needed for daily living? No 06/14/2024 Housing Stability Vital Sign Answer Basilio e Recorded In the last 12 months, was t here a time when you were not able to pay the mortgage or rent on time? No 06/14/2024 In the past 12 months, how m any times have you moved where you were living? 1 06/14/2024 At any time in the past 12 m [facility], were you homeless or living in a custodial (including now)? No 06/14/2024 Comments No Sex and Gender Information Value Date Recorded Sex Assigned at Female 06/11/2024 7:46 PM EDT Legal Sex Female 4:36 PM EDT Gender Identity Female 06/11/2024 7:46 PM EDT Sexual Orientation Heterosexual (straight) 06/11 7:46 PM EDT Last Filed Vital Signs Vital Sign Reading Time Taken Comments Blood Pressure 122/72 08/20/2024 1:33 PM EDT Pulse 102 08/20/2024 1:33 PM EDT Temperature 35.8 C (96.5 F) 08/20/2024 1:33 PM EDT Respiratory Rate 18 07/02/2024 10:42 AM EDT Oxygen Saturation 96% 08/20/2024 1:33 PM EDT Inhaled Oxygen Concentration - - Weight 76.2 kg (168 lb) 08/20/2024 1:33 PM EDT Height 154.9 cm (5' 1 ) 06/12/2024 1:16 AM EDT Body Mass Index 31.74 06/12/2024 1:16 AM EDT Plan of Treatment Upcoming Encounters Date Type Department Care Team (Late st Contact Info) Description 09/08/2024 11:20 AM EDT Procedure visit [facility] Colorectal Surgery [address] [phone] Nayla Soliman PA [address] [place] [address] 09/08/2024 11:20 AM EDT Procedure visit [facility] Colorectal Surgery [place] [address] [facility] [address] [place] [phone] 09/13/2024 12:15 PM EDT Telemedicine [facility] Department of Infectious Disease [place] [address] [place] [address] Saray Gross MD [address] [facility] [address], [place] [phone] Health Maintenance Due Date Last Done Comments Hepatitis C Virus Screening 1950 DTaP/Tdap/Td Vaccines (1 - Tdap) 1968 Mammogram 1989 Colonoscopy 1994 Pneumococcal Vaccines 50+ (1 of 1 - PCV) 09/21/1999 Zoster (Shingles) Vaccine (1 of 2) 09/21/1999 DXA Bone Density (Females,Ages 65 and older) 2014 COVID-19 Vaccine (3 - 2023-2 5 season) 2023 06/02/2020, 05/12/2020 RSV Vaccine 60 years and older and Patients (1 - 1-dose 75+ series) 2024 Influenza Vaccine 10/08/2024 Hepatitis B Vaccines Aged Out No long er eligible based on patient's age to complete this topic Procedures Procedure Name Priority Date/Time Associated Diagnosis Comments CT ABD AND PELVIS WITH CONTRAST Routine 08/04/2024 1:20 PM EDT POCT GLUCOSE, FINGERSTICK (CHARGE) Routine 07/02/2024 8:12 PM EDT ECG 12-LEAD STAT 07/02/2024 11:42 AM EDT POCT GLUCOSE, FINGERSTICK (CHARGE) Routine 07/02/2024 11:36 AM EDT POCT GLUCOSE, FINGERSTICK (CHARGE) Routine 07/02/2024 7:38 AM EDT MAGNESIUM Routine 07/02/2024 5:30 AM EDT PHOSPHORUS Routine 07/02/2024 5:30 AM EDT BASIC METABOLIC PANEL Routine 07/02/2024 5:30 AM EDT POCT GLUCOSE, FINGERSTICK (CHARGE) Routine 07/02/2024 4:44 AM EDT POCT GLUCOSE, FINGERSTICK (CHARGE) Routine 07/02/2024 12:23 AM EDT POCT GLUCOSE, FINGERSTICK (CHARGE) Routine 07/01/2024 8:11 PM EDT POCT GLUCOSE, FINGERSTICK (CHARGE) Routine 07/01/2024 7:14 PM EDT POCT GLUCOSE, FINGERSTICK (CHARGE) Routine 07/01/2024 12:01 PM EDT POCT GLUCOSE, FINGERSTICK (CHARGE) Routine 07/01/2024 8:09 AM EDT COMPLETE BLOOD COUNT, WITHOUT DIFFERENTIAL Routine 07/01/2024 5:31 AM EDT PHOSPHORUS Routine 07/01/2024 5:31 AM EDT MAGNESIUM Routine 07/01/2024 5:31 AM EDT BASIC METABOLIC PANEL Routine 07/01/2024 5:31 AM EDT POCT GLUCOSE, FINGERSTICK (CHARGE) Routine 07/01/2024 4:37 AM EDT HEPARIN ASSAY (ANTI-XA) Routine 07/01/2024 1:51 AM EDT POCT GLUCOSE, FINGERSTICK (CHARGE) Routine 06/30/2024 8:03 PM EDT POCT GLUCOSE, FINGERSTICK (CHARGE) Routine 06/30/2024 4:17 PM EDT POTASSIUM Routine 06/30/2024 1:35 PM EDT HEMOGLOBIN AND HEMATOCRIT Routine 06/30/2024 1:35 PM EDT HEPARIN ASSAY (ANTI-XA) Routine 06/30/2024 1:35 PM EDT XR ABDOMEN 1 VIEW STAT 06/30/2024 12: 24 PM EDT POCT GLUCOSE, FINGERSTICK (CHARGE) Routine 06/30/2024 12:02 PM EDT POCT GLUCOSE, FINGERSTICK (CHARGE) Routine 06/30/2024 8:31 AM EDT PARTIAL THROMBOPLASTIN TIME (PTT) Routine 06/30/2024 7:01 AM EDT PROTIME-INR Routine 06/30/2024 7:01 AM EDT POCT GLUCOSE, FINGERSTICK (CHARGE) Routine 06/30/2024 4:25 AM EDT COMPLETE BLOOD COUNT, WITHOUT DIFFERENTIAL Routine 06/30/2024 4:20 AM EDT PHOSPHORUS Routine 06/30/2024 4:20 AM EDT MAGNESIUM Routine 06/30/2024 4:20 AM EDT BASIC METABOLIC PANEL Routine 06/30/2024 4:20 AM EDT POCT GLUCOSE, FINGERSTICK (CHARGE) Routine 06/30/2024 12:11 AM EDT POCT GLUCOSE, FINGERSTICK (CHARGE) Routine 06/29/2024 8:22 PM EDT POCT GLUCOSE, FINGERSTICK (CHARGE) Routine 06/29/2024 4:10 PM EDT HEMOGLOBIN AND HEMATOCRIT Routine 06/29/2024 3:44 PM EDT POCT GLUCOSE, FINGERSTICK (CHARGE) Routine 06/29/2024 3:02 PM EDT POCT GLUCOSE, FINGERSTICK (CHARGE) Routine 06/29/2024 1:51 PM EDT POCT GLUCOSE, FINGERSTICK (CHARGE) Routine 06/29/2024 12:08 PM EDT POCT GLUCOSE, FINGERSTICK (CHARGE) Routine 06/29/2024 8:06 AM EDT PHOSPHORUS Routine 06/29/2024 6:30 AM EDT MAGNESIUM Routine 06/29/2024 6:30 AM EDT BASIC METABOLIC PANEL Routine 06/29/2024 6:30 AM EDT COMPLETE BLOOD COUNT, WITHOUT DIFFERENTIAL Routine 06/29/2024 6:30 AM EDT POCT GLUCOSE, FINGERSTICK (CHARGE) Routine 06/29/2024 4:24 AM EDT POCT GLUCOSE, FINGERSTICK (CHARGE) Routine 06/29/2024 12:21 AM EDT POCT GLUCOSE, FINGERSTICK (CHARGE) Routine 06/28/2024 9:03 PM EDT COMPLETE BLOOD COUNT, WITHOUT DIFFERENTIAL Routine 06/28/2024 8:10 PM EDT POCT GLUCOSE, FINGERSTICK (CHARGE) Routine 06/28/2024 4:27 PM EDT ENDOSCOPY UPPER 06/28/2024 2:05 PM EDT Hematemesis with nausea POCT GLUCOSE, FINGERSTICK (CHARGE) Routine 06/28/2024 11:50 AM EDT COMPLETE BLOOD COUNT, WITHOUT DIFFERENTIAL Routine 06/28/2024 11:40 AM EDT POCT GLUCOSE, FINGERSTICK (CHARGE) Routine 06/28/2024 7:56 AM EDT PHOSPHORUS Routine 06/28/2024 6:10 AM EDT MAGNESIUM Routine 06/28/2024 6:10 AM EDT BASIC METABOLIC PANEL Routine 06/28/2024 6:10 AM EDT COMPLETE BLOOD COUNT, WITHOUT DIFFERENTIAL Routine 06/28/2024 6:10 AM EDT TRANSFUSE RED BLOOD CELLS Routine 06/28/2024 5:42 AM EDT PREPARE RBC'S Routine 06/28/2024 5:06 AM EDT POCT GLUCOSE, FINGERSTICK (CHARGE) Routine 06/28/2024 4:58 AM EDT COMPLETE BLOOD COUNT, WITHOUT DIFFERENTIAL Routine 06/28/2024 3:03 AM EDT POCT GLUCOSE, FINGERSTICK (CHARGE) Routine 06/28/2024 12:10 AM EDT POCT GLUCOSE, FINGERSTICK (CHARGE) Routine 06/27/2024 8:59 PM EDT COMPLETE BLOOD COUNT, WITHOUT DIFFERENTIAL Routine 06/27/2024 8:55 PM EDT XR ABDOMEN 1 VIEW-PORTABLE STAT 06/27/2024 7:15 PM EDT COMPLETE BLOOD COUNT, WITHOUT DIFFERENTIAL Routine 06/27/2024 6:15 PM EDT POCT GLUCOSE, FINGERSTICK (CHARGE) Routine 06/27/2024 4:02 PM EDT TRANSFUSE RED BLOOD CELLS Routine 06/27/2024 2:[address] ABDOMEN+PELVIS W/CONTRAST STAT 06/27/2024 12:50 PM EDT POCT GLUCOSE, FINGERSTICK (CHARGE) Routine 06/27/2024 12:23 PM EDT TYPE AND SCREEN Routine 06/27/2024 12:15 PM EDT PREPARE RBC'S Routine 06/27/2024 11:41 AM EDT POCT GLUCOSE, FINGERSTICK (CHARGE) Routine 06/27/2024 8:00 AM EDT HEPATIC FUNCTION PANEL Routine 06/27/2024 6:03 AM EDT PHOSPHORUS Routine 06/27/2024 6:03 AM EDT MAGNESIUM Routine 06/27/2024 6:03 AM EDT BASIC METABOLIC PANEL Routine 06/27/2024 6:03 AM EDT COMPLETE BLOOD COUNT, WITHOUT DIFFERENTIAL Routine 06/27/2024 6:03 AM EDT POCT GLUCOSE, FINGERSTICK (CHARGE) Routine 06/27/2024 4:07 AM EDT POCT GLUCOSE, FINGERSTICK (CHARGE) Routine 06/27/2024 12:39 AM EDT XR ABDOMEN 2 VIEWS STAT 06/26/2024 10 :12 PM EDT COMPLETE BLOOD COUNT, WITHOUT DIFFERENTIAL Routine 06/26/2024 9:25 PM EDT POCT GLUCOSE, FINGERSTICK (CHARGE) Routine 06/26/2024 8:11 PM EDT POCT GLUCOSE, FINGERSTICK (CHARGE) Routine 06/26/2024 4:10 PM EDT POCT GLUCOSE, FINGERSTICK (CHARGE) Routine 06/26/2024 11:52 AM EDT POCT GLUCOSE, FINGERSTICK (CHARGE) Routine 06/26/2024 7:45 AM EDT PHOSPHORUS Routine 06/26/2024 5:46 AM EDT MAGNESIUM Routine 06/26/2024 5:46 AM EDT BASIC METABOLIC PANEL Routine 06/26/2024 5:46 AM EDT COMPLETE BLOOD COUNT, WITH DIFFERENTIAL Routine 06/26/2024 5:46 AM EDT POCT GLUCOSE, FINGERSTICK (CHARGE) Routine 06/26/2024 4:15 AM EDT POCT GLUCOSE, FINGERSTICK (CHARGE) Routine 06/26/2024 12:04 AM EDT POCT GLUCOSE, FINGERSTICK (CHARGE) Routine 06/25/2024 8:51 PM EDT POCT GLUCOSE, FINGERSTICK (CHARGE) Routine 06/25/2024 5:44 PM EDT POCT GLUCOSE, FINGERSTICK (CHARGE) Routine 06/25/2024 12:07 PM EDT PHOSPHORUS Routine 06/25/2024 6:28 AM EDT MAGNESIUM Routine 06/25/2024 6:28 AM EDT BASIC METABOLIC PANEL Routine 06/25/2024 6:28 AM EDT COMPLETE BLOOD COUNT, WITHOUT DIFFERENTIAL Routine 06/25/2024 6:28 AM EDT POCT GLUCOSE, FINGERSTICK (CHARGE) Routine 06/25/2024 5:03 AM EDT POCT GLUCOSE, FINGERSTICK (CHARGE) Routine 06/25/2024 12:55 AM EDT POCT GLUCOSE, FINGERSTICK (CHARGE) Routine 06/24/2024 8:32 PM EDT POCT GLUCOSE, FINGERSTICK (CHARGE) Routine 06/24/2024 4:46 PM EDT POCT GLUCOSE, FINGERSTICK (CHARGE) Routine 06/24/2024 12:01 PM EDT POCT GLUCOSE, FINGERSTICK (CHARGE) Routine 06/24/2024 9:42 AM EDT HEPARIN ASSAY (ANTI-XA) Routine 06/24/2024 6:15 AM EDT COMPLETE BLOOD COUNT, WITHOUT DIFFERENTIAL Routine 06/24/2024 6:15 AM EDT PHOSPHORUS Routine 06/24/2024 6:15 AM EDT MAGNESIUM Routine 06/24/2024 6:15 AM EDT BASIC METABOLIC PANEL Routine 06/24/2024 6:15 AM EDT POCT GLUCOSE, FINGERSTICK (CHARGE) Routine 06/24/2024 5:27 AM EDT POCT GLUCOSE, FINGERSTICK (CHARGE) Routine 06/24/2024 1:03 AM EDT POCT GLUCOSE, FINGERSTICK (CHARGE) Routine 06/23/2024 8:14 PM EDT POCT GLUCOSE, FINGERSTICK (CHARGE) Routine 06/23/2024 4:35 PM EDT POCT GLUCOSE, FINGERSTICK (CHARGE) Routine 06/23/2024 12:07 PM EDT POCT GLUCOSE, FINGERSTICK (CHARGE) Routine 06/23/2024 8:11 AM EDT TRIGLYCERIDES Routine 06/23/2024 6:15 AM EDT TRANSFERRIN Routine 06/23/2024 6:15 AM EDT PREALBUMIN Routine 06/23/2024 6:15 AM EDT HEPATIC FUNCTION PANEL Routine 06/23/2024 6:15 AM EDT PHOSPHORUS Routine 06/23/2024 6:15 AM EDT MAGNESIUM Routine 06/23/2024 6:15 AM EDT COMPLETE BLOOD COUNT, WITH DIFFERENTIAL Routine 06/23/2024 6:15 AM EDT BASIC METABOLIC PANEL Routine 06/23/2024 6:15 AM EDT HEPARIN ASSAY (ANTI-XA) Routine 06/23/2024 6:15 AM EDT POCT GLUCOSE, FINGERSTICK (CHARGE) Routine 06/23/2024 4:57 AM EDT POCT GLUCOSE, FINGERSTICK (CHARGE) Routine 06/23/2024 12:53 AM EDT POCT GLUCOSE, FINGERSTICK (CHARGE) Routine 06/22/2024 8:28 PM EDT POCT GLUCOSE, FINGERSTICK (CHARGE) Routine 06/22/2024 4:50 PM EDT POCT GLUCOSE, FINGERSTICK (CHARGE) Routine 06/22/2024 3:31 PM EDT PHOSPHORUS Routine 06/22/2024 3:28 PM EDT MAGNESIUM Routine 06/22/2024 3:28 PM EDT CALCIUM, IONIZED Routine 06/22/2024 3:28 PM EDT BASIC METABOLIC PANEL Routine 06/22/2024 3:28 PM EDT POCT GLUCOSE, FINGERSTICK (CHARGE) Routine 06/22/2024 11:48 AM EDT POCT GLUCOSE, FINGERSTICK (CHARGE) Routine 06/22/2024 9:19 AM EDT POCT GLUCOSE, FINGERSTICK (CHARGE) Routine 06/22/2024 3:30 AM EDT POCT GLUCOSE, FINGERSTICK (CHARGE) Routine 06/22/2024 12:47 AM EDT TYPE AND SCREEN Routine 06/22/2024 12:32 AM EDT HEPARIN ASSAY (ANTI-XA) Routine 06/22/2024 12:29 AM EDT PHOSPHORUS Routine 06/22/2024 12:29 AM EDT MAGNESIUM Routine 06/22/2024 12:29 AM EDT COMPLETE BLOOD COUNT, WITHOUT DIFFERENTIAL Routine 06/22/2024 12:29 AM EDT CALCIUM, IONIZED Routine 06/22/2024 12:2 9 AM EDT BASIC METABOLIC PANEL Routine 06/22/2024 12:29 AM EDT HEPARIN ASSAY (ANTI-XA) Routine 06/21/2024 10:05 PM EDT POCT GLUCOSE, FINGERSTICK (CHARGE) Routine 06/21/2024 7:49 PM EDT HEPARIN ASSAY (ANTI-XA) Routine 06/21/2024 4:35 PM EDT POCT GLUCOSE, FINGERSTICK (CHARGE) Routine 06/21/2024 3:53 PM EDT POCT GLUCOSE, FINGERSTICK (CHARGE) Routine 06/21/2024 11:38 AM EDT HEPARIN ASSAY (ANTI-XA) Routine 06/21/2024 8:38 AM EDT POCT GLUCOSE, FINGERSTICK (CHARGE) Routine 06/21/2024 7:57 AM EDT POCT GLUCOSE, FINGERSTICK (CHARGE) Routine 06/21/2024 4:13 AM EDT PHOSPHORUS Routine 06/21/2024 12:30 AM EDT MAGNESIUM Routine 06/21/2024 12:30 AM EDT BASIC METABOLIC PANEL Routine 06/21/2024 12:30 AM EDT COMPLETE BLOOD COUNT, WITHOUT DIFFERENTIAL Routine 06/21/2024 12:30 AM EDT CALCIUM, IONIZED Routine 06/21/2024 12:3 0 AM EDT HEPARIN ASSAY (ANTI-XA) Routine 06/21/2024 12:30 AM EDT POCT GLUCOSE, FINGERSTICK (CHARGE) Routine 06/21/2024 12:18 AM EDT POCT GLUCOSE, FINGERSTICK (CHARGE) Routine 06/20/2024 8:55 PM EDT POCT GLUCOSE, FINGERSTICK (CHARGE) Routine 06/20/2024 7:51 PM EDT POCT GLUCOSE, FINGERSTICK (CHARGE) Routine 06/20/2024 4:10 PM EDT COMPLETE BLOOD COUNT, WITHOUT DIFFERENTIAL Routine 06/20/2024 1:53 PM EDT PHOSPHORUS Routine 06/20/2024 1:53 PM EDT MAGNESIUM Routine 06/20/2024 1:53 PM EDT BASIC METABOLIC PANEL Routine 06/20/2024 1:53 PM EDT CALCIUM, IONIZED Routine 06/20/2024 1:53 PM EDT POCT GLUCOSE, FINGERSTICK (CHARGE) Routine 06/20/2024 11:50 AM EDT XR CHEST 1 VIEW Routine 06/20/2024 9:46 AM EDT POCT GLUCOSE, FINGERSTICK (CHARGE) Routine 06/20/2024 7:45 AM EDT HEPARIN ASSAY (ANTI-XA) Routine 06/20/2024 7:00 AM EDT POCT GLUCOSE, FINGERSTICK (CHARGE) Routine 06/20/2024 4:15 AM EDT HEPARIN ASSAY (ANTI-XA) Routine 06/20/2024 1:30 AM EDT COMPLETE BLOOD COUNT, WITHOUT DIFFERENTIAL Routine 06/20/2024 1:30 AM EDT PHOSPHORUS Routine 06/20/2024 1:30 AM EDT MAGNESIUM Routine 06/20/2024 1:30 AM EDT CALCIUM, IONIZED Routine 06/20/2024 1:30 AM EDT BASIC METABOLIC PANEL Routine 06/20/2024 1:30 AM EDT POCT GLUCOSE, FINGERSTICK (CHARGE) Routine 06/20/2024 12:17 AM EDT POCT GLUCOSE, FINGERSTICK (CHARGE) Routine 06/19/2024 8:09 PM EDT THORACENTESIS Routine 06/19/2024 5:32 PM EDT US GUIDED BEDSIDE THORACENTESIS-LEFT Routine 06/19/2024 5:29 PM EDT POCT GLUCOSE, FINGERSTICK (CHARGE) Routine 06/19/2024 3:10 PM EDT PHOSPHORUS Routine 06/19/2024 1:59 PM EDT MAGNESIUM Routine 06/19/2024 1:59 PM EDT BASIC METABOLIC PANEL Routine 06/19/2024 1:[address] CHEST/ABDOMEN+PELVIS W/CONTRAST Routine 06/19/2024 1:57 PM EDT POCT GLUCOSE, FINGERSTICK (CHARGE) Routine 06/19/2024 12:41 PM EDT HEPARIN ASSAY (ANTI-XA) Routine 06/19/2024 9:58 AM EDT POCT GLUCOSE, FINGERSTICK (CHARGE) Routine 06/19/2024 8:30 AM EDT POCT GLUCOSE, FINGERSTICK (CHARGE) Routine 06/19/2024 3:54 AM EDT HEPARIN ASSAY (ANTI-XA) Routine 06/19/2024 3:04 AM EDT PHOSPHORUS Routine 06/19/2024 12:00 AM EDT MAGNESIUM Routine 06/19/2024 12:00 AM EDT BASIC METABOLIC PANEL Routine 06/19/2024 12:00 AM EDT COMPLETE BLOOD COUNT, WITHOUT DIFFERENTIAL Routine 06/19/2024 12:00 AM EDT CALCIUM, IONIZED Routine 06/19/2024 12:0 0 AM EDT POCT GLUCOSE, FINGERSTICK (CHARGE) Routine 06/18/2024 11:44 PM EDT HEPARIN ASSAY (ANTI-XA) Routine 06/18/2024 9:10 PM EDT POCT GLUCOSE, FINGERSTICK (CHARGE) Routine 06/18/2024 8:50 PM EDT POCT GLUCOSE, FINGERSTICK (CHARGE) Routine 06/18/2024 4:55 PM EDT POCT GLUCOSE, FINGERSTICK (CHARGE) Routine 06/18/2024 3:47 PM EDT PHOSPHORUS Routine 06/18/2024 1:55 PM EDT MAGNESIUM Routine 06/18/2024 1:55 PM EDT BASIC METABOLIC PANEL Routine 06/18/2024 1:55 PM EDT HEPARIN ASSAY (ANTI-XA) Routine 06/18/2024 1:12 PM EDT POCT GLUCOSE, FINGERSTICK (CHARGE) Routine 06/18/2024 11:50 AM EDT POCT GLUCOSE, FINGERSTICK (CHARGE) Routine 06/18/2024 8:38 AM EDT POCT GLUCOSE, FINGERSTICK (CHARGE) Routine 06/18/2024 8:12 AM EDT POCT GLUCOSE, FINGERSTICK (CHARGE) Routine 06/18/2024 8:09 AM EDT PHOSPHORUS Routine 06/18/2024 8:01 AM EDT HEPARIN ASSAY (ANTI-XA) Routine 06/18/2024 6:41 AM EDT POCT GLUCOSE, FINGERSTICK (CHARGE) Routine 06/18/2024 3:34 AM EDT POCT GLUCOSE, FINGERSTICK (CHARGE) Routine 06/18/2024 12:07 AM EDT PHOSPHORUS Routine 06/18/2024 12:01 AM EDT MAGNESIUM Routine 06/18/2024 12:01 AM EDT COMPLETE BLOOD COUNT, WITHOUT DIFFERENTIAL Routine 06/18/2024 12:01 AM EDT BASIC METABOLIC PANEL Routine 06/18/2024 12:01 AM EDT HEPARIN ASSAY (ANTI-XA) Routine 06/18/2024 12:01 AM EDT POCT GLUCOSE, FINGERSTICK (CHARGE) Routine 06/17/2024 7:50 PM EDT POCT GLUCOSE, FINGERSTICK (CHARGE) Routine 06/17/2024 4:19 PM EDT ECHOCARDIOGRAM (TTE) COMPREHENSIVE (CONTRAST PRN) Routine 06/17/2024 1:47 PM EDT POCT GLUCOSE, FINGERSTICK (CHARGE) Routine 06/17/2024 11:58 AM EDT POCT GLUCOSE, FINGERSTICK (CHARGE) Routine 06/17/2024 7:49 AM EDT HEPARIN ASSAY (ANTI-XA) Routine 06/17/2024 4:30 AM EDT POCT GLUCOSE, FINGERSTICK (CHARGE) Routine 06/17/2024 4:11 AM EDT TRIGLYCERIDES Routine 06/17/2024 12:36 AM EDT HEPATIC FUNCTION PANEL Routine 06/17/2024 12:36 AM EDT COMPLETE BLOOD COUNT, WITHOUT DIFFERENTIAL Routine 06/17/2024 12:36 AM EDT PHOSPHORUS Routine 06/17/2024 12:36 AM EDT MAGNESIUM Routine 06/17/2024 12:36 AM EDT CALCIUM, IONIZED Routine 06/17/2024 12:3 6 AM EDT BASIC METABOLIC PANEL Routine 06/17/2024 12:36 AM EDT POCT GLUCOSE, FINGERSTICK (CHARGE) Routine 06/16/2024 11:56 PM EDT HEPARIN ASSAY (ANTI-XA) Routine 06/16/2024 10:27 PM EDT COMPLETE BLOOD COUNT, WITHOUT DIFFERENTIAL Routine 06/16/2024 9:10 PM EDT POCT GLUCOSE, FINGERSTICK (CHARGE) Routine 06/16/2024 7:54 PM EDT COMPLETE BLOOD COUNT, WITHOUT DIFFERENTIAL Routine 06/16/2024 5:08 PM EDT POCT GLUCOSE, FINGERSTICK (CHARGE) Routine 06/16/2024 3:28 PM EDT TRANSFUSE RED BLOOD CELLS STAT 06/16/2024 2:30 PM EDT PREPARE RBC'S STAT 06/16/2024 2:00 PM EDT COMPLETE BLOOD COUNT, WITHOUT DIFFERENTIAL Routine 06/16/2024 12:09 PM EDT POCT GLUCOSE, FINGERSTICK (CHARGE) Routine 06/16/2024 11:34 AM EDT VANCOMYCIN LEVEL-RANDOM Routine 06/16/2024 9:00 AM EDT COMPLETE BLOOD COUNT, WITHOUT DIFFERENTIAL Routine 06/16/2024 9:00 AM EDT CALCIUM, IONIZED Routine 06/16/2024 9:00 AM EDT PHOSPHORUS Routine 06/16/2024 9:00 AM EDT MAGNESIUM Routine 06/16/2024 9:00 AM EDT BASIC METABOLIC PANEL Routine 06/16/2024 9:00 AM EDT POCT GLUCOSE, FINGERSTICK (CHARGE) Routine 06/16/2024 8:22 AM EDT POCT GLUCOSE, FINGERSTICK (CHARGE) Routine 06/16/2024 3:58 AM EDT TRANSFERRIN Routine 06/16/2024 12:27 AM EDT PREALBUMIN Routine 06/16/2024 12:27 AM EDT PHOSPHORUS Routine 06/16/2024 12:27 AM EDT MAGNESIUM Routine 06/16/2024 12:27 AM EDT LACTIC ACID, PLASMA Routine 06/16/2024 1 2:27 AM EDT HEPATIC FUNCTION PANEL Routine 06/16/2024 12:27 AM EDT HEMOGLOBIN A1C WITH ESTIMATED AVERAGE GLUCOSE Routine 06/16/2024 12:27 AM EDT COMPLETE BLOOD COUNT, WITHOUT DIFFERENTIAL Routine 06/16/2024 12:27 AM EDT CALCIUM, IONIZED Routine 06/16/2024 12:2 7 AM EDT BASIC METABOLIC PANEL Routine 06/16/2024 12:27 AM EDT POCT GLUCOSE, FINGERSTICK (CHARGE) Routine 06/15/2024 11:07 PM EDT BLOOD CULTURE (HOSP LAB) Routine 06/15/2024 8:59 PM EDT POCT GLUCOSE, FINGERSTICK (CHARGE) Routine 06/15/2024 7:54 PM EDT COMPLETE BLOOD COUNT, WITHOUT DIFFERENTIAL Routine 06/15/2024 7:38 PM EDT XR CHEST 1 VIEW-PORTABLE STAT 06/15/2024 6:43 PM EDT US GUIDED BEDSIDE CENTRAL LINE PLACEMENT Routine 06/15/2024 5:50 PM EDT CENTRAL LINE Routine 06/15/2024 5:50 PM EDT PROCALCITONIN Routine 06/15/2024 5:00 PM EDT FIBRINOGEN LEVEL Routine 06/15/2024 5:00 PM EDT THROMBIN TIME Routine 06/15/2024 5:00 PM EDT PARTIAL THROMBOPLASTIN TIME (PTT) Routine 06/15/2024 5:00 PM EDT PROTIME-INR Routine 06/15/2024 5:00 PM EDT MAGNESIUM Routine 06/15/2024 5:00 PM EDT PHOSPHORUS Routine 06/15/2024 5:00 PM EDT COMPLETE BLOOD COUNT, WITH DIFFERENTIAL Routine 06/15/2024 5:00 PM EDT BASIC METABOLIC PANEL Routine 06/15/2024 5:00 PM EDT LACTIC ACID, PLASMA Routine 06/15/2024 4 :54 PM EDT TRANSFUSE RED BLOOD CELLS Routine 06/15/2024 2:15 PM EDT TRANSFUSE RED BLOOD CELLS Routine 06/15/2024 1:30 PM EDT MT EXPLORATORY LAPAROTOMY CELIOTOMY W/WO BIOPSY SPX 06/15/2024 12:16 PM EDT Psoas abscess (HCC) Diverticulitis Special Needs ANES BLOCK - OTHER Routine 06/15/2024 11 :13 AM EDT PREPARE RBC'S Routine 06/15/2024 9:58 AM EDT VAS VENOUS DUPLEX ARM (DVT)-RIGHT Routine 06/15/2024 8:32 AM EDT VAS VENOUS DUPLEX LEG (DVT)-BILATERAL Routine 06/15/2024 8:31 AM EDT ABO CONFIRMATION Routine 06/15/2024 8:20 AM EDT TYPE AND SCREEN Routine 06/15/2024 7:00 AM EDT PROTIME-INR Routine 06/15/2024 7:00 AM EDT COMPLETE BLOOD COUNT, WITH DIFFERENTIAL Routine 06/15/2024 7:00 AM EDT BASIC METABOLIC PANEL Routine 06/15/2024 7:00 AM EDT MAGNESIUM Routine 06/15/2024 7:00 AM EDT PHOSPHORUS Routine 06/15/2024 7:00 AM EDT PATHOLOGY REPORT Routine 06/15/2024 12:0 0 AM EDT HEPARIN ASSAY (ANTI-XA) Routine 06/14/2024 4:21 PM EDT HEPARIN ASSAY (ANTI-XA) Routine 06/14/2024 9:42 AM EDT VANCOMYCIN LEVEL-RANDOM Routine 06/14/2024 8:06 AM EDT BASIC METABOLIC PANEL Routine 06/14/2024 8:06 AM EDT COMPLETE BLOOD COUNT, WITH DIFFERENTIAL Routine 06/14/2024 8:06 AM EDT PROTIME-INR Routine 06/14/2024 8:06 AM EDT PHOSPHORUS Routine 06/14/2024 8:06 AM EDT MAGNESIUM Routine 06/14/2024 8:06 AM EDT HEPARIN ASSAY (ANTI-XA) Routine 06/14/2024 12:00 AM EDT HEPARIN ASSAY (ANTI-XA) Routine 06/13/2024 5:56 PM EDT PROTEIN, RANDOM URINE Routine 06/13/2024 1:09 PM EDT HEPARIN ASSAY (ANTI-XA) Routine 06/13/2024 11:02 AM EDT PROTIME-INR Routine 06/13/2024 11:02 AM EDT FOLATE LEVEL Routine 06/13/2024 10:32 AM EDT PHOSPHORUS Routine 06/13/2024 8:08 AM EDT ALBUMIN Routine 06/13/2024 8:08 AM EDT VITAMIN B12 Routine 06/13/2024 8:08 AM EDT MAGNESIUM Routine 06/13/2024 8:08 AM EDT FOLATE LEVEL Routine 06/13/2024 8:08 AM EDT COMPLETE BLOOD COUNT, WITHOUT DIFFERENTIAL Routine 06/13/2024 8:08 AM EDT BASIC METABOLIC PANEL Routine 06/13/2024 8:08 AM EDT HEPARIN ASSAY (ANTI-XA) Routine 06/13/2024 1:[address] ABDOMEN+PELVIS W/CONTRAST STAT 06/12/2024 8:27 PM EDT HEPARIN ASSAY (ANTI-XA) STAT 06/12/2024 5:57 PM EDT XR CHEST 1 VIEW-PORTABLE STAT 06/12/2024 4:46 PM EDT HEPARIN ASSAY (ANTI-XA) STAT 06/12/2024 10:04 AM EDT VANCOMYCIN LEVEL-RANDOM STAT 06/12/2024 9:59 AM EDT HEPARIN ASSAY (ANTI-XA) STAT 06/12/2024 6:15 AM EDT BLOOD CULTURE (HOSP LAB) STAT 06/12/2024 6:15 AM EDT HEPARIN ASSAY (ANTI-XA) Routine 06/12/2024 1:09 AM EDT PARTIAL THROMBOPLASTIN TIME (PTT) Routine 06/12/2024 1:09 AM EDT HEPARIN ASSAY (ANTI-XA) STAT 06/11/2024 10:43 PM EDT CALCIUM, IONIZED STAT 06/11/2024 10:4 3 PM EDT ECG 12-LEAD STAT 06/11/2024 10:30 PM EDT XR CHEST 1 VIEW-PORTABLE STAT 06/11/2024 10:02 PM EDT HIGH SENSITIVITY TROPONIN T Routine 06/11/2024 9:51 PM EDT PROTIME-INR STAT 06/11/2024 9:00 PM EDT LACTIC ACID, PLASMA STAT 06/11/2024 9 :00 PM EDT MAGNESIUM STAT 06/11/2024 9:00 PM EDT HIGH SENSITIVITY TROPONIN T CARD 06/11/2024 9:00 PM EDT HEPARIN ASSAY (ANTI-XA) STAT 06/11/2024 9:00 PM EDT COMPREHENSIVE METABOLIC PANEL STAT 06/11/2024 9:00 PM EDT COMPLETE BLOOD COUNT, WITH DIFFERENTIAL STAT 06/11/2024 9:00 PM EDT BLOOD/BLOOD PRODUCTS-SCAN 06/11/2024 from Last 3 Months Results * CT ABD AND PELVIS WITH CONTRAST (08/04/2024 1:20 PM EDT) Anatomical Region Laterality Modality Other 08/04/2024 1:00 PM EDT 08/04/2024 1:00 PM EDT Impressions 08/06/2024 7:33 AM EDT Complicated fluid collections in the left upper retroperitoneum tail pancreatic region and in the left iliac fossa likely multiloculated change of appearance however of which is indeterminate as there is no prior testing available to reference at the time of this interpretation. Abscess formation is likely however. Left lower chest pleural effusion with consolidative/atelectatic changes left lower lung with minimal discoid atelectasis right lung base. Status post left anterior abdominal wall diverting colostomy with subcutaneous presumed postsurgical changes without definable fluid collection. Calcified fibroid changes uterus. Status post cholecystectomy without bile duct dilation. Apparent evidence of prior reduction gastroplasty changes. Electronically signed by: Isidro Garcia MD 08/06/2024 07:33 AM EDT Thank you for referring your patient to us, Isidro Garcia MD [phone] (Electronically Signed - 08/06/2024 07:33) Copy: LINDA HOLLY MD [facility] [address] [place], [place] [id number] PATIENT , Narrative 08/06/2024 7:33 AM EDT EXAMINATION: CT ABDOMEN AND PELVIS WITH CONTRAST CLINICAL INDICATION: Female, 73 years old. Follow-up study for retroperitoneal abscess left, evaluate for residual infection TECHNIQUE: CT abdomen and pelvis was performed, after the administration of IV contrast, as per department protocol. Axial, sagittal and coronal reconstructions were obtained. One or more of the following dose reduction techniques were used: Automated exposure control, adjustment of the mA and/or kV according to patient size, and/or iterative reconstruction. Unless otherwise specified, incidental findings do not require dedicated imaging follow-up. IV CONTRAST: 100 mL of Omnipaque 300 ORAL CONTRAST: Yes. COMPARISON: There are no previous examinations available for comparison. FINDINGS: LOWER CHEST: The visualized lung bases demonstrate left pleural effusion with consolidative changes in the left lower lung. There is atelectasis right lung base.. LIVER: Normal in size and contour. No focal lesion. GALLBLADDER: Surgically absent BILE DUCTS: No biliary ductal dilatation. PANCREAS: No mass, ductal dilation, or angel-pancreatic fluid. SPLEEN: Normal size. No focal lesion. ADRENALS: Normal; no mass. KIDNEYS AND URETERS: Normal size and contour. No hydronephrosis. URINARY BLADDER: Normal contour. Limited in assessment as the urinary bladder near-complete collapsed and unopacified. GASTROINTESTINAL TRACT: Surgical changes proximal stomach presumably from prior reduction gastroplasty. Small bowel has normal course and caliber. No colonic wall thickening or pericolonic inflammatory changes. Left anterior abdominal wall diverting colostomy. LYMPH NODES: No lymphadenopathy. ABDOMINAL AORTA AND OTHER VESSELS: Normal caliber aorta and IVC. REPRODUCTIVE ORGANS: No pathologic process calcified fibroid changes uterus. MUSCULOSKELETAL: No acute or suspicious osseous abnormality. Advanced degenerative change lumbar spine and bilateral hips. ADDITIONAL FINDINGS: 1.9 x 1.7 cm fluid collection in the left upper retroperitoneum region of pancreatic tail, series 2 image 22. There is regional retroperitoneal fat stranding on the left as well otherwise. Second elongated fluid collection in the left iliac fossa measures 3.5 x 1.8 cm, series 2 image 55 though this is likely undersized as the morphology is somewhat irregular and complicated. Left anterior low abdominal wall stranding presumably postsurgical without definable fluid collection in the superficial soft tissues. Procedure Note Isidro Garcia MD - 08/06/2024 EXAMINATION: CT ABDOMEN AND PELVIS WITH CONTRAST CLINICAL INDICATION: Female, 73 years old. Follow-up study forretroperitoneal abscess left, evaluate for residual infection TECHNIQUE: CT abdomen and pelvis was performed, after the administrationof IV contrast, as per department protocol. Axial, sagittal and coronalreconstructions were obtained. One or more of the following dose reductiontechniques were used: Automated exposure control, adjustment of the mA and/or kV according to patientsize, and/or iterative reconstruction. Unless otherwise specified,incidental findings do not require dedicated imaging follow-up. IV CONTRAST: 100 mL of Omnipaque 300 ORAL CONTRAST: Yes. COMPARISON: There are no previous examinations available for comparison. FINDINGS: LOWER CHEST: The visualized lung bases demonstrate left pleural effusionwith consolidative changes in the left lower lung. There is atelectasisright lung base.. LIVER: Normal in size and contour. No focal lesion. GALLBLADDER: Surgically absent BILE DUCTS: No biliary ductal dilatation. PANCREAS: No mass, ductal dilation, or angel-pancreatic fluid. SPLEEN: Normal size. No focal lesion. ADRENALS: Normal; no mass. KIDNEYS AND URETERS: Normal size and contour. No hydronephrosis. URINARY BLADDER: Normal contour. Limited in assessment as the urinarybladder near-complete collapsed and unopacified. GASTROINTESTINAL TRACT: Surgical changes proximal stomach presumably fromprior reduction gastroplasty. Small bowel has normal course and caliber.No colonic wall thickening or pericolonic inflammatory changes. Leftanterior abdominal wall diverting colostomy. LYMPH NODES: No lymphadenopathy. ABDOMINAL AORTA AND OTHER VESSELS: Normal caliber aorta and IVC. REPRODUCTIVE ORGANS: No pathologic process calcified fibroid changesuterus. MUSCULOSKELETAL: No acute or suspicious osseous abnormality. Advanceddegenerative change lumbar spine and bilateral hips. ADDITIONAL FINDINGS: 1.9 x 1.7 cm fluid collection in the left upperretroperitoneum region of pancreatic tail, series 2 image 22. There isregional retroperitoneal fat stranding on the left as well otherwise.Second elongated fluid collection in the left iliac fossa measures 3.5 x 1.8 cm, series 2 image 55 though this islikely undersized as the morphology is somewhat irregular and complicated.Left anterior low abdominal wall stranding presumably postsurgical withoutdefinable fluid collection in the superficial soft tissues. IMPRESSION: Complicated fluid collections in the left upper retroperitoneum tailpancreatic region and in the left iliac fossa likely multiloculated changeof appearance however of which is indeterminate as there is no priortesting available to reference at the time of this interpretation. Abscess formation is likely however. Left lower chest pleural effusion with consolidative/atelectatic changesleft lower lung with minimal discoid atelectasis right lung base. Status post left anterior abdominal wall diverting colostomy withsubcutaneous presumed postsurgical changes without definable fluidcollection. Calcified fibroid changes uterus. Status post cholecystectomy without bile duct dilation. Apparent evidence of prior reduction gastroplasty changes. Electronically signed by: Isidro Garcia MD 08/06/2024 07:33 AM EDTWorkstation:[id number] Thank you for referring your patient to us, Isidro Garcia MD [id number] (Electronically Signed - 08/06/2024 07:33) Copy: LINDA HOLLY MD [facility] [address] [place] [address] PATIENT , us Saray Gross MD IMG LEGACY PROCEDURES Final Result * POCT Glucose, Fingerstick (07/02/2024 8:12 PM EDT) Only the most recent of107 resultswithin the time period is included. POC Glucose 84 65 - 99 mg/dL 07/02/2024 8:27 PM EDT Blood specimen / Unknown 07/02/2024 8:12 PM EDT 07/02/2024 8:27 PM EDT Elena Farmer MD POINT OF CARE TEST ORDERAB LES Final Result HOSPITAL LAB See Below * ECG 12 lead (STAT) (07/02/2024 11:42 AM EDT) Only the most recent of2 resultswithin the time period is included. Ventricular rate 105 BPM EKG [facility] Atrial rate 105 BPM EKG [facility] P-R interval 126 ms EKG [facility] QRS duration 68 ms EKG [facility] Q-T interval 344 ms EKG [facility] QTC calculation (Bazett) 455 ms EKG [facility] P axis 46 degrees EKG [facility] R axis 10 degrees EKG [facility] T axis 59 degrees [facility] 07/02/2024 11:4 2 AM EDT Narrative [facility] - 07/02/2024 12:16 PM EDT Sinus tachycardia Otherwise normal ECG When compared with ECG of 11-Jun-2024 22:30, Nonspecific T wave abnormality no longer evident in Inferior leads Confirmed by MD Moore Jeffrey ([id number]) on 07/02/2024 12:16:28 PM Procedure Note Sukhjinder Moore MD - 07/02/2024 Sinus tachycardia Otherwise normal ECG When compared with ECG of 11-Jun-2024 22:30, Nonspecific T wave abnormality no longer evident in Inferior leads Confirmed by MD Moore Jeffrey ([id number]) on 07/02/2024 12:16:28 PM Cristiano Koo MD ECG ORDERABLES Final Result [facility] * (ABNORMAL) PHOSPHORUS (07/02/2024 5:30 AM EDT) Only the most recent of27 resultswithin the time period is included. Pathologist [facility] Phosphorus 2.5(L) 2.7 - 4.5 mg/dL 07/02/2024 7:02 AM EDT [facility] Blood Blood specimen / Unknown 07/02/2024 5:30 AM EDT 07/02/2024 6:35 AM EDT us Harmony Diaz MD LAB BLOOD ORDERABLES Final Re sult Performing Organization Address [facility] [place] [address], [place] [address] * MAGNESIUM (07/02/2024 5:30 AM EDT) Only the most recent of27 resultswithin the time period is included. Magnesium 1.9 1.6 - 2.7 mg/dL 07/02/2024 7:02 AM EDT [facility] Blood Blood specimen / Unknown 07/02/2024 5:30 AM EDT 07/02/2024 6:35 AM EDT us Harmony Diaz MD LAB BLOOD ORDERABLES Final Re sult Performing Organization Address [facility] [place] [address], [place] [address] * (ABNORMAL) BASIC METABOLIC PANEL (07/02/2024 5:30 AM EDT) Only the most recent of26 resultswithin the time period is included. Glucose 76 65 - 99 mg/dL 07/02/2024 7:02 AM T [facility] Comment:Fasting: <100 mg/dL, Non-Fasting: <200 mg/dL (ADA 2005) Blood Urea Nitrogen (BUN) 3(L) 8 - 21 mg/dL 07/02/2024 7:02 AM [facility] Creatinine 0.5 0.4 - 1.1 mg/dL 07/02/2024 7:02 AM [facility] eGFR >90 >59 07/02/2024 7:02 AM [facility] Comment:CKD-EPI (2020) in mL /min/1.73 sq meters. Sodium 137 136 - 145 mmol/L 07/02/2024 7:02 AM [facility] Potassium 3.6 3.4 - 5.3 mmol/L 07/02/2024 7:02 AM [facility] Chloride 106 98 - 107 mmol/L 07/02/2024 7:02 AM [facility] CO2 24 22 - 33 mmol/L 07/02/2024 7:02 AM [facility] Anion Gap 7 7 - 17 07/02/2024 7:02 AM [facility] Calcium 7.7(L) 8.7 - 10.5 mg/dL 07/02/2024 7:02 AM [facility] BUN/Creatinine Ratio 6(L) 10.0 - 25.0 Ratio 07/02/2024 7:02 AM [facility] Blood Blood specimen / Unknown 07/02/2024 5:30 AM EDT 07/02/2024 6:35 AM EDT Harmony Diaz MD LAB BLOOD ORDERABLES [place] [address], [place] [address] * (ABNORMAL) COMPLETE BLOOD COUNT, WITHOUT DIFFERENTIAL (07/01/2024 5:31 AM EDT) Only the most recent of27 resultswithin the time period is included. White Blood Cell Count 9.7 4.0 - 11.0 Thou/uL 07/01/2024 7:05 AM [facility] Platelet Count 329 150 - 450 Thou/uL 07/01/2024 7:05 AM [facility] Hemoglobin 8.2(L) 11.7 - 15.7 g/dL 07/01/2024 7:05 AM [facility] Hematocrit 26.4(L) 35.0 - 47.0 % 07/01/2024 7:05 AM [facility] Red Blood Cell Count 2.62(L) 4.00 - 5.40 Mil/uL 07/01/2024 7:05 AM [facility] MCV 101(H) 80 - 100 fL 07/01/2024 7:05 AM [facility] MCH 31.3(H) 27.0 - 31.0 pg 07/01/2024 7:05 AM EDT [facility] MCHC 31.1 30.0 - 36.0 g/dL 07/01/2024 7:05 AM EDT [facility] RDW 22.6(H) 11.5 - 14.5 % 07/01/2024 7:05 AM EDT [facility] MPV 8.6 7.5 - 12.5 fL 07/01/2024 7:05 AM EDT [facility] Blood Blood specimen / Unknown 07/01/2024 5:31 AM EDT 07/01/2024 6:57 AM EDT us Cristiano Koo MD LAB BLOOD ORDERABLES [place] [address], [place] [address] * Heparin Assay (Anti Xa) (07/01/2024 1:51 AM EDT) Only the most recent of31 resultswithin the time period is included. Anti Xa 0.34 IU/mL 07/01/2024 2:57 AM EDT [facility] Comment: (NOTE) Heparin Thromboembolic/Standard/Full Dose Protocol: Therapeutic Range: Age 18+: 0.30 - 0.70 IU/mL Age 0 - 17: 0.35 - 0.70 IU/mL Heparin Cardiac/Low Dose Protocol: Therapeutic Range: 0.30 - 0.50 IU/mL Low Molecular Weight Heparin: Therapeutic Range: Age 18+: 0.50 - 1.09 IU/mL for twice daily dosing (or adjusted to daily for poor renal function) Age 18+: 1.00 - 2.00 IU/mL for once daily dosing Age 0-17: 0.50 - 1.00 IU/mL Anticoagulant IV HEPARIN, UNFRACTIONATED 07/01/2024 1:51 AM EDT [facility] Blood Blood specimen / Unknown 07/01/2024 1:51 AM EDT 07/01/2024 2:38 AM EDT us Cristiano Koo MD LAB BLOOD ORDERABLES Final Re sult Performing Organization Address City/[facility]/ZIP Co de Phone Number [address] [address], [address] [address] * (ABNORMAL) Hemoglobin and Hematocrit (06/30/2024 1:35 PM EDT) Only the most recent of2 resultswithin the time period is included. Hematocrit 26.6(L) 35.0 - 47.0 % 06/30/2024 2:42 PM EDT [facility] Hemoglobin 8.2(L) 11.7 - 15.7 g/dL 06/30/2024 2:42 PM EDT [facility] Blood Blood specimen / Unknown 06/30/2024 1:35 PM EDT 06/30/2024 2:28 PM EDT Stcay Benitez APRN LAB BLOOD ORDERABLES Final Result Performing Organization Address [facility]/[place] [address], [address] [address] * Potassium (06/30/2024 1:35 PM EDT) Potassium 3.8 3.4 - 5.3 mmol/L 06/30/2024 3:01 PM EDT [facility] Blood Blood specimen / Unknown 06/30/2024 1:35 PM EDT 06/30/2024 2:28 PM EDT Cristiano Koo MD LAB BLOOD ORDERABLES Final Re sult Performing Organization Address [facility] Co de Phone Number [address] [address], [address] [address] * XR Abdomen 1 view (06/30/2024 12:24 PM EDT) Anatomical Region Laterality Modality Abdomen Computed Radiogr aphy 06/30/2024 11:3 8 AM EDT Impressions 06/30/2024 1:13 PM EDT 1. Nonspecific, nonobstructive bowel gas pattern. Narrative 06/30/2024 1:13 PM EDT EXAM: XR Abdomen, 1 View CLINICAL INDICATION: Patient is 73 years old and is female. Belching. Nausea. TECHNIQUE: Frontal supine view of the abdomen/pelvis. Supine 1 view. COMPARISON: June 27, 2024 Radiograph Abdomen 1 View (KUB). FINDINGS: INTRAPERITONEAL SPACE: There is no pneumoperitoneum (limited evaluation on supine films). Postsurgical sutures in the left abdomen. GASTROINTESTINAL TRACT: There are no air-fluid levels. Mild to moderate stool. Bowel gas appearance is non-distended and nonspecific. Left lower quadrant partially visualized ostomy. There is no pneumatosis. There is no obstructive pattern. ORGANS: Right upper quadrant cholecystectomy clips. No suspicious calcifications overlying the renal shadows. BONES/JOINTS: Degenerative changes in the spine and hips. No acute fracture. SOFT TISSUES: Left abdomen skin sylwia. Procedure Note Ronen Martinez MD - 06/30/2024 EXAM: XR Abdomen, 1 View CLINICAL INDICATION: Patient is 73 years old and is female. Belching. Nausea. TECHNIQUE: Frontal supine view of the abdomen/pelvis. Supine 1 view. COMPARISON: June 27, 2024 Radiograph Abdomen 1 View (KUB). FINDINGS: INTRAPERITONEAL SPACE: There is no pneumoperitoneum (limited evaluation on supine films). Postsurgical sutures in the left abdomen. GASTROINTESTINAL TRACT: There are no air-fluid levels. Mild to moderate stool. Bowel gas appearance is non-distended and nonspecific. Left lower quadrant partially visualized ostomy. There is no pneumatosis. There is no obstructive pattern. ORGANS: Right upper quadrant cholecystectomy clips. No suspicious calcifications overlying the renal shadows. BONES/JOINTS: Degenerative changes in the spine and hips. No acute fracture. SOFT TISSUES: Left abdomen skin sylwia. IMPRESSION: 1. Nonspecific, nonobstructive bowel gas pattern. Stacy Benitez APRN [facility] DIAGNOSTIC IMAGING ORDKyle OROSCO Final Result * Partial Thromboplastin Time (PTT) (06/30/2024 7:01 AM EDT) Only the most recent of3 resultswithin the time period is included. Anticoagulant IV HEPARIN, UNFRACTIONATED 06/30/2024 5:47 AM EDT [facility] Partial Thromboplastin Time (PTT) 28 25 - 36 seconds 06/30/2024 7:50 AM EDT [facility] Blood Blood specimen / Unknown 06/30/2024 7:01 AM EDT 06/30/2024 7:22 AM EDT Cristiano Koo MD LAB BLOOD ORDERABLES Final Re sult Performing Organization Address [facility] [place] [address], [place] [address] * Protime-INR (06/30/2024 7:01 AM EDT) Only the most recent of6 resultswithin the time period is included. Pathologist [facility] Anticoagulant IV HEPARIN, UNFRACTIONATED 06/30/2024 5:47 AM EDT [facility] Prothrombin Time (PT) 12.8 10.0 - 13.5 seconds 06/30/2024 7:50 AM EDT [facility] INR 1.1 06/30/2024 7:50 AM EDT [facility] Comment:INR Therapeutic Rang es: Standard dose anticoagulant 2.0 to 3.0, High dose anticoagulant 2.5-3.5. Blood Blood specimen / Unknown 06/30/2024 7:01 AM EDT 06/30/2024 7:22 AM EDT Cristiano Koo MD LAB BLOOD ORDERABLES Final Re sult Performing Organization Address [facility] [place] [address], [address] [address] * Transfuse RBC's: (06/28/2024 3:17 PM EDT) Only the most recent of5 resultswithin the time period is included. us Cristiano Koo MD BLOOD TRANSFUSION ORDERABLES Final Result * Prepare RBC's:Prepare in: Units; Number of Units: 1; Transfusion Indications: Hemoglobin less than 7 gm/dl or HCT less than 21% (06/28/2024 5:06 AM EDT) Only the most recent of4 resultswithin the time period is included. Units Ordered 1 06/28/2024 5:07 AM EDT 06/28/2024 5:06 AM EDT 06/28/2024 5:08 AM EDT Cristiano Koo MD BLOOD BANK PRODUCT ORDERABLES Final Result [facility] See Below * XR Abdomen 1 view-Portable (06/27/2024 7:15 PM EDT) Anatomical Region Laterality Modality Abdomen Computed Radiogr aphy 06/27/2024 6:54 PM EDT Impressions 06/27/2024 7:19 PM EDT Enteric tube tip projects over the body of the stomach. Narrative 06/27/2024 7:19 PM EDT EXAMINATION: XR ABDOMEN KUB CLINICAL INDICATION: NGT Insertion COMPARISON: None available. TECHNIQUE: AP view of the abdomen. FINDINGS: Enteric tube tube tip projects over the body of the stomach. Lung bases are clear. Visualized portions of the bowel are unremarkable.. Procedure Note Adela Webb MD - 06/27/2024 EXAMINATION: XR ABDOMEN KUB CLINICAL INDICATION: NGT Insertion COMPARISON: None available. TECHNIQUE: AP view of the abdomen. FINDINGS: Enteric tube tube tip projects over the body of the stomach. Lung bases are clear. Visualized portions of the bowel are unremarkable.. IMPRESSION: Enteric tube tip projects over the body of the stomach. us Mario Pritchard MD IMG DIAGNOSTIC IMAGING ORDER DANIELLA Final Result * CT Abdomen+pelvis w/contrast (06/27/2024 12:50 PM EDT) Only the most recent of2 resultswithin the time period is included. Anatomical Region Laterality Modality Abdomen, Pelvis Computed Tomogra phy 06/27/2024 12:3 4 PM EDT Impressions 06/27/2024 4:14 PM EDT 1. Increased size and extent of a peripherally enhancing fluid collection, which starts centrally and tracks along the left paracolic gutter, terminating along the left abdominal sidewall. There is local mesenteric stranding although slightly decreased from prior. 2. The short segment and stomach proximal to the distal anastomosis are dilated and fluid-filled. No focal transition point is identified to suggest obstruction. Cannot definitively rule out an anastomotic stenosis/stricture. 3. Simple fluid density within the region of cecum extending into Best's pouch favored to represent redistributed pelvic free fluid. 4. Esophagus is fluid-filled which can predispose patient to aspiration. Fleischner guidelines were followed. Interpreted by: David Guy DO Material Clerk Attending addendum: There is a left-sided iliopsoas collection present which is not significantly changed when compared to the 06/19/2024 study. I personally reviewed the images and the resident's preliminary report and made the MINOR addendum above (RADPAL2). Narrative 06/27/2024 4:14 PM EDT EXAMINATION: CT ABDOMEN AND PELVIS WITH CONTRAST CLINICAL INFORMATION: Please evaluate for intra-abdominal infection. COMPARISON: CT abdomen pelvis from 06/12/2024 and 06/19/2024.. TECHNIQUE: Multidetector volumetric imaging was performed from the lung bases to the pubic symphysis following the administration of: Oral contrast: None. Intravenous contrast: 80 mL Omnipaque 350 No contrast reaction reported. Sagittal and coronal reformatted images were obtained on the technologist's workstation. This CT examination was performed using dose optimization techniques as appropriate, variously including the following: *Automated exposure control *Adjustment of mA and/or kV according to patient size (this includes techniques or standardized protocols for targeted exams where dose is matched to indication/reason for exam; i.e. extremities or head) *Use of iterative reconstruction technique Total exam dose-length product 724 mGy-cm. FINDINGS: VISUALIZED CHEST: Small to moderate left pelvic pleural effusion with adjacent near collapse of the left lower lobe. Partially visualized right lower lobe subsegmental atelectasis. Mild bronchial wall thickening in the bilateral lower lobes. LIVER, GALLBLADDER, AND BILIARY TREE: Hepatic steatosis. The liver is normal in size and shape. No focal hepatic lesions or biliary ductal dilation. The gallbladder is surgically absent PANCREAS: Diffuse fatty infiltration of the pancreas with no focal mass or surrounding fluid. SPLEEN: Normal size. No focal lesion. ADRENAL GLANDS: Normal; no mass. KIDNEYS AND URETERS: The kidneys are normal in size, shape, and attenuation. No hydronephrosis, hydroureter, or calculi. 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 The small pouch and esophagus are fluid-filled. The short limb is dilated measuring up to 4.4 cm as it enters the distal anastomosis where it becomes decompressed. The remaining small bowel and colon up to the left upper quadrant colostomy is decompressed. No focal transition points are identified to suggest obstruction. Scattered colonic diverticulosis without colonic wall thickening or pericolonic inflammatory changes. The appendix is partially visualized and appears unremarkable. PERITONEUM/RETROPERITONEUM: Large complex peripherally enhancing fluid collection in the left lower quadrant measuring 4.9 x 6.7 cm (previously 3.8 x 2.7 cm) appears contiguous with tracking along the left paracolic gutter and along the left pelvic sidewall. The lateral most left peritoneal fluid collection measuring 3.7 x 3.0 cm. There is mild surrounding inflammatory changes. Trace simple fluid density surrounding the cecum tracing superiorly into Morison's pouch favored to represent represent free fluid. ABDOMINAL WALL: Extensive inflammatory changes throughout the subcutaneous soft tissues in the left lateral abdominal wall with skin thickening is overall similar to prior. No focal fluid collections. LYMPHOVASCULAR STRUCTURES: No lymphadenopathy. The aorta is normal in caliber. BLADDER: No focal mass or wall thickening seen. No bladder calculi. Foci of gas in the anterior bladder may relate to prior instrumentation. PELVIC VISCERA: Calcified uterine fibroid unchanged. OSSEOUS STRUCTURES: No acute or suspicious osseous abnormality. Degenerative changes at L5-S1. Procedure Note Tenzin Garay MD - 06/27/2024 EXAMINATION: CT ABDOMEN AND PELVIS WITH CONTRAST CLINICAL INFORMATION: Please evaluate for intra-abdominal infection. COMPARISON: CT abdomen pelvis from 06/12/2024 and 06/19/2024.. TECHNIQUE: Multidetector volumetric imaging was performed from the lung bases to the pubic symphysis following the administration of: Oral contrast: None. Intravenous contrast: 80 mL Omnipaque 350 No contrast reaction reported. Sagittal and coronal reformatted images were obtained on the technologist's workstation. This CT examination was performed using dose optimization techniques as appropriate, variously including the following: *Automated exposure control *Adjustment of mA and/or kV according to patient size (this includes techniques or standardized protocols for targeted exams where dose is matched to indication/reason for exam; i.e. extremities or head) *Use of iterative reconstruction technique Total exam dose-length product 724 mGy-cm. FINDINGS: VISUALIZED CHEST: Small to moderate left pelvic pleural effusion with adjacent near collapse of the left lower lobe. Partially visualized right lower lobe subsegmental atelectasis. Mild bronchial wall thickening in the bilateral lower lobes. LIVER, GALLBLADDER, AND BILIARY TREE: Hepatic steatosis. The liver is normal in size and shape. No focal hepatic lesions or biliary ductal dilation. The gallbladder is surgically absent PANCREAS: Diffuse fatty infiltration of the pancreas with no focal mass or surrounding fluid. SPLEEN: Normal size. No focal lesion. ADRENAL GLANDS: Normal; no mass. KIDNEYS AND URETERS: The kidneys are normal in size, shape, and attenuation. No hydronephrosis, hydroureter, or calculi. 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 The small pouch and esophagus are fluid-filled. The short limb is dilated measuring up to 4.4 cm as it enters the distal anastomosis where it becomes decompressed. The remaining small bowel and colon up to the left upper quadrant colostomy is decompressed. No focal transition points are identified to suggest obstruction. Scattered colonic diverticulosis without colonic wall thickening or pericolonic inflammatory changes. The appendix is partially visualized and appears unremarkable. PERITONEUM/RETROPERITONEUM: Large complex peripherally enhancing fluid collection in the left lower quadrant measuring 4.9 x 6.7 cm (previously 3.8 x 2.7 cm) appears contiguous with tracking along the left paracolic gutter and along the left pelvic sidewall. The lateral most left peritoneal fluid collection measuring 3.7 x 3.0 cm. There is mild surrounding inflammatory changes. Trace simple fluid density surrounding the cecum tracing superiorly into Morison's pouch favored to represent represent free fluid. ABDOMINAL WALL: Extensive inflammatory changes throughout the subcutaneous soft tissues in the left lateral abdominal wall with skin thickening is overall similar to prior. No focal fluid collections. LYMPHOVASCULAR STRUCTURES: No lymphadenopathy. The aorta is normal in caliber. BLADDER: No focal mass or wall thickening seen. No bladder calculi. Foci of gas in the anterior bladder may relate to prior instrumentation. PELVIC VISCERA: Calcified uterine fibroid unchanged. OSSEOUS STRUCTURES: No acute or suspicious osseous abnormality. Degenerative changes at L5-S1. IMPRESSION: 1. Increased size and extent of a peripherally enhancing fluid collection, which starts centrally and tracks along the left paracolic gutter, terminating along the left abdominal sidewall. There is local mesenteric stranding although slightly decreased from prior. 2. The short segment and stomach proximal to the distal anastomosis are dilated and fluid-filled. No focal transition point is identified to suggest obstruction. Cannot definitively rule out an anastomotic stenosis/stricture. 3. Simple fluid density within the region of cecum extending into Best's pouch favored to represent redistributed pelvic free fluid. 4. Esophagus is fluid-filled which can predispose patient to aspiration. Fleischner guidelines were followed. Interpreted by: David Guy DO Material Clerk Attending addendum: There is a left-sided iliopsoas collection present which is not significantly changed when compared to the 06/19/2024 study. I personally reviewed the images and the resident's preliminary report and made the MINOR addendum above (RADPAL2). us Joann Bravo MD IMG CT ORDERABLES Final Resul t * Type and Screen (06/27/2024 12:15 PM EDT) Only the most recent of3 resultswithin the time period is included. ABO/Rh O POSITIVE 06/27/2024 1:38 PM EDT [facility] Antibody Screen NEGATIVE 06/27/2024 1:38 PM EDT [facility] Specimen Expiration 06/30/2024 06/27/2024 1:38 PM EDT [facility] Unit Number [id number] 06/27/2024 1:59 PM EDT [facility] Blood Component Type LEUKOREDUCED RED CELLS 06/27/2024 1:59 PM EDT [facility] Unit Division 00 06/27/2024 1:59 PM EDT [facility] Unit Status ISSUED,FINAL 06/28/2024 12:12 AM EDT [facility] Transfusion Status OK TO TRANSFUSE 06/27/2024 1:59 PM EDT [facility] Crossmatch Result Electronically Compatible 06/27/2024 1:59 PM EDT [facility] Unit Number [id number] 06/28/2024 5:09 AM EDT [facility] Blood Component Type IRRADIATED RED CELLS 06/28/2024 5:09 AM EDT [facility] Unit Division 00 06/28/2024 5:09 AM EDT [facility] Unit Status ISSUED,FINAL 06/29/2024 12:08 AM EDT [facility] Transfusion Status OK TO TRANSFUSE 06/28/2024 5:09 AM EDT [facility] Crossmatch Result Electronically Compatible 06/28/2024 5:09 AM EDT [facility] Blood Blood specimen / Unknown 06/27/2024 12:15 PM EDT 06/27/2024 12:29 PM EDT Comment:Blood us Joann Bravo MD BLOOD BANK TEST ORDERABLES Fi nal Result HOSPITAL LAB See Below [address] [address] * (ABNORMAL) Hepatic Function Panel (Early AM) (06/27/2024 6:03 AM EDT) Only the most recent of4 resultswithin the time period is included. Alkaline Phosphatase 57 32 - 122 U/L 06/27/2024 7:13 AM T [facility] Aspartate Aminotrans (AST) 18 10 - 50 U/L 06/27/2024 7:13 AM [facility] Alanine Aminotrans (ALT) 16 10 - 50 U/L 06/27/2024 7:13 AM EDT [facility] Bilirubin, Total 0.3 0.2 - 1.0 mg/dL 06/27/2024 7:13 AM T [facility] Protein, Total 5.5(L) 6.3 - 8.3 g/dL 06/27/2024 7:13 AM EDT [facility] Albumin 2.4(L) 3.4 - 4.8 g/dL 06/27/2024 7:13 AM T [facility] Bilirubin, Direct 0.2 0 - 0.2 mg/dL 06/27/2024 7:13 AM EDT [facility] Globulin 3.1 1.5 - 3.9 g/dL 06/27/2024 7:13 AM EDT [facility] Albumin/Globulin Ratio 0.8(L) 1.0 - 3.0 Ratio 06/27/2024 7:13 AM EDT [facility] Blood Blood specimen / Unknown 06/27/2024 6:03 AM EDT 06/27/2024 6:38 AM EDT Joann Bravo MD LAB BLOOD ORDERABLES Final Re sult [address] [address], [facility] [address] [place] [address] * XR Abdomen 2 views (06/26/2024 10:12 PM EDT) Anatomical Region Laterality Modality Abdomen Computed Radiogr aphy 06/26/2024 9:55 PM EDT Impressions 06/26/2024 11:14 PM EDT Nonobstructive bowel gas pattern. Narrative 06/26/2024 11:14 PM EDT EXAMINATION: XR ABDOMEN MULTIPLE PORTABLE CLINICAL INDICATION: evaluate for sbo/ileus COMPARISON: None available. TECHNIQUE: AP view of the abdomen FINDINGS: There is no evidence of free air or obstruction. No abnormal calcifications are seen. Left hemiabdomen sutures are noted. Calcified fibroid. Procedure Note Adela Webb MD - 06/26/2024 EXAMINATION: XR ABDOMEN MULTIPLE PORTABLE CLINICAL INDICATION: evaluate for sbo/ileus COMPARISON: None available. TECHNIQUE: AP view of the abdomen FINDINGS: There is no evidence of free air or obstruction. No abnormal calcifications are seen. Left hemiabdomen sutures are noted. Calcified fibroid. IMPRESSION: Nonobstructive bowel gas pattern. Joann Bravo MD IMG DIAGNOSTIC IMAGING ORDERA BLES Final Result * (ABNORMAL) Complete Blood Count, with Differential (06/26/2024 5:46 AM EDT) Only the most recent of6 resultswithin the time period is included. White Blood Cell Count 16.3(H) 4.0 - 11.0 Thou/uL 06/26/2024 7:37 AM [facility] Platelet Count 312 150 - 450 Thou/uL 06/26/2024 7:37 AM [facility] Hemoglobin 7.7(L) 11.7 - 15.7 g/dL 06/26/2024 7:37 AM [facility] Hematocrit 25.1(L) 35.0 - 47.0 % 06/26/2024 7:37 AM [facility] Red Blood Cell Count 2.32(L) 4.00 - 5.40 Mil/uL 06/26/2024 7:37 AM [facility] MCV 108(H) 80 - 100 fL 06/26/2024 7:37 AM [facility] MCH 33.2(H) 27.0 - 31.0 pg 06/26/2024 7:37 AM [facility] MCHC 30.7 30.0 - 36.0 g/dL 06/26/2024 7:37 AM [facility] RDW 23.4(H) 11.5 - 14.5 % 06/26/2024 7:37 AM [facility] MPV 9.3 7.5 - 12.5 fL 06/26/2024 7:37 AM [facility] Myelocytes 3 % 06/26/2024 8:06 AM [facility] Bands Man 1 % 06/26/2024 8:06 AM [facility] Neutrophils Man 86 % 8:06 AM [facility] Lymphocytes Man 4 % 8:06 AM [facility] Monocytes Man 4 % 06/26/2024 8:06 AM [facility] Eosinophils Man 1 % 8:06 AM [facility] Basophils Man 1 % 06/26/2024 8:06 AM [facility] Abs Myelocytes 0.5(H) 0 Thou/uL 06/26/2024 8:06 AM [facility] Abs Neutrophils Count (ANC) 14.2(H) 2.0 - 7.5 Thou/uL 06/26/2024 8:06 AM [facility] Abs Lymphocytes Man 0.7(L) 1.5 - 4.5 Thou/uL 06/26/2024 8:06 AM EDT [facility] Abs Monocytes Man 0.7 0.2 - 1.5 Thou/uL 06/26/2024 8:06 AM EDT [facility] Abs Eosinophils Man 0.2 0.0 - 0.7 Thou/uL 06/26/2024 8:06 AM EDT [facility] Abs Basophils Man 0.2 0.0 - 0.2 Thou/uL 06/26/2024 8:06 AM EDT [facility] Normochromic Present 06/26/2024 8:06 AM EDT [facility] Normocytic Present 06/26/2024 8:06 AM EDT [facility] Macrocytes Occasional 06/26/2024 8:06 AM EDT [facility] Blood Blood specimen / Unknown 06/26/2024 5:46 AM EDT 06/26/2024 7:17 AM EDT Stacy Benitez APRN LAB BLOOD ORDERABLES Final Result Performing Organization Address City/[facility]/[place] [address], [place] [address] * (ABNORMAL) Triglycerides (06/23/2024 6:15 AM EDT) Only the most recent of2 resultswithin the time period is included. Triglycerides 204(H) <150 mg/dL 06/23/2024 9:25 AM EDT [facility] Blood Blood specimen / Unknown 06/23/2024 6:15 AM EDT 06/23/2024 8:37 AM EDT Cristiano Koo MD LAB BLOOD ORDERABLES Final Re sult Performing Organization Address [facility]/[place] [address], [place] [address] * (ABNORMAL) Transferrin (06/23/2024 6:15 AM EDT) Only the most recent of2 resultswithin the time period is included. Transferrin 123(L) 200 - 360 mg/dL 06/23/2024 9:25 AM EDT [facility] Blood Blood specimen / Unknown 06/23/2024 6:15 AM EDT 06/23/2024 8:37 AM EDT Cristiano Koo MD LAB BLOOD ORDERABLES Final Re sult Performing Organization Address [facility] Co de Phone Number [address] [address], [address] [address] * (ABNORMAL) Prealbumin (06/23/2024 6:15 AM EDT) Only the most recent of2 resultswithin the time period is included. Prealbumin 14(L) 20 - 40 mg/dL 06/23/2024 9:25 AM EDT [facility] Blood Blood specimen / Unknown 06/23/2024 6:15 AM EDT 06/23/2024 8:37 AM EDT Cristiano Koo MD LAB BLOOD ORDERABLES Final Re sult Performing Organization Address [facility] [place] [address], [address] [address] * (ABNORMAL) Calcium, Ionized (06/22/2024 3:28 PM EDT) Only the most recent of10 resultswithin the time period is included. Calcium, Ionized 1.10(L) 1.17 - 1.33 mmol/L 06/22/2024 4:07 PM EDT [facility] Blood Blood specimen / Unknown 06/22/2024 3:28 PM EDT 06/22/2024 3:51 PM EDT Linda Olmstead APRN LAB BLOOD ORDERABLES Fin al Result Performing Organization Address City/[facility]/[place] [address], [address] [place] [address] * XR Chest 1 view (06/20/2024 9:46 AM EDT) Anatomical Region Laterality Modality Chest Computed Radiogr aphy 06/20/2024 9:15 AM EDT Impressions 06/21/2024 4:46 PM EDT 1. No pneumothorax status post right-sided thoracentesis. 2. Moderate left pleural effusion, decreased from prior. Narrative 06/21/2024 4:46 PM EDT EXAMINATION: XR CHEST CLINICAL INFORMATION: S/p right sided thoracentesis. COMPARISON: CT Chest abdomen pelvis with IV contrast 06/19/2024; XR Chest 06/15/2024 TECHNIQUE: One view of the chest was obtained. FINDINGS: There is no pneumothorax status post right-sided thoracentesis. Diaphragmatic elevation has decreased presumably secondary to evacuation of subpulmonic effusion. Moderate left pleural effusion is present, decreased from prior. The heart remains enlarged. No evidence of CHF. Right AJ catheter with tip in proximal right atrium. Procedure Note Tenzin Garay MD - 06/21/2024 EXAMINATION: XR CHEST CLINICAL INFORMATION: S/p right sided thoracentesis. COMPARISON: CT Chest abdomen pelvis with IV contrast 06/19/2024; XR Chest 06/15/2024 TECHNIQUE: One view of the chest was obtained. FINDINGS: There is no pneumothorax status post right-sided thoracentesis. Diaphragmatic elevation has decreased presumably secondary to evacuation of subpulmonic effusion. Moderate left pleural effusion is present, decreased from prior. The heart remains enlarged. No evidence of CHF. Right AJ catheter with tip in proximal right atrium. IMPRESSION: 1. No pneumothorax status post right-sided thoracentesis. 2. Moderate left pleural effusion, decreased from prior. Willow Wade APRN IMG DIAGNOSTIC IMAGING ORDER DANIELLA Final Result * Thoracentesis (06/19/2024 5:32 PM EDT) Anatomical Region Laterality Modality Other Narrative 06/19/2024 5:32 PM EDT Susanna Geller PA-C 06/19/2024 5:33 PM Thoracentesis Date/Time: 06/19/2024 5:32 PM Performed by: Susanna Geller PA-C Authorized by: Susanna Geller PA-C Consent: Written consent obtained. Risks and benefits: risks, benefits and alternatives were discussed Consent given by: patient Patient understanding: patient states understanding of the procedure being performed Patient consent: the patient's understanding of the procedure matches consent given Procedure consent: procedure consent matches procedure scheduled Relevant documents: relevant documents present and verified Imaging studies: imaging studies available Required items: required blood products, implants, devices, and special equipment available Patient identity confirmed: verbally with patient and arm band Time out: Immediately prior to procedure a time out was called to verify the correct patient, procedure, equipment, account support rep and site/side marked as required. Procedure purpose: therapeutic Indications: pleural effusion Preparation: Patient was prepped and draped in the usual sterile fashion. Local anesthesia used: yes Anesthesia: Local anesthesia used: yes Local Anesthetic: lidocaine 1% without epinephrine Anesthetic total: 10 mL Sedation: Patient sedated: no Preparation: skin prepped with chlorhexidine Patient position: right lateral decubitus Location: left posterior Number of attempts: 1 Drainage amount: 700 ml Patient tolerance: patient tolerated the procedure well with no immediate complications Comments: Heparin gtt can be restarted at 7PM today without bolus. us Susanna Geller PA-C PFT ORDERABLES Final Result * US Guided Bedside Thoracentesis-Left (06/19/2024 5:29 PM EDT) Anatomical Region Laterality Modality Ultrasound Impressions 06/19/2024 5:35 PM EDT Successful left ultrasound-guided therapeutic thoracentesis yielding 700cc of clear yellow fluid. This procedure was performed and dictated by Susanna Geller PA-C Narrative 06/19/2024 5:35 PM EDT PROCEDURE: Ultrasound-guided thoracentesis INDICATION: Left pleural effusion. SPECIMEN: No specimen requested. ACCESS: 6 [place] [id number]-C-Zyxrfgzh closed needle/catheter system REQUESTING PRACTITIONER: Jose Turcios MD CLINICIAN(S): Susanna Geller PA-C CONSENT: Informed consent was obtained from the patient prior to the procedure. During this process, the procedure and potential alternatives were explained along with the intended outcome and benefits. The risks of the procedure, including the possibility of an unsuccessful procedure as well as the risk of not doing the procedure were discussed. the patient was given the opportunity to ask any questions regarding the procedure and appeared competent to make medical decisions. A signed consent form which documents this discussion was placed in the medical record. A timeout procedure was performed. HISTORY: Gilberto GIRON is a 73 y.o. old female with a suspected left pleural effusion. The patient was referred for an ultrasound-guided thoracentesis. MEDICATIONS: 10ml 1% lidocaine. TECHNIQUE/FINDINGS: Appropriate pre-procedure medical history and imaging studies were reviewed. The ultrasound machine was brought to the patients bedside. Ultrasound images of the left thorax were obtained to localize a moderate pleural effusion. Images were permanently saved to the record. An area of the patient's back was prepped and draped in the standard sterile fashion. 10 mL of 1% lidocaine was used to obtain local anesthesia of the skin and deeper tissues. A standard small bore needle was introduced to sample fluid and demonstrated a safe access route. There was no evidence of traversing adjacent organs or vascular structures. A 6 [place] [id number]-Uisypabn closed needle/catheter system was utilized for access. 700cc of clear yellow fluid was aspirated before drainage ceased. The catheter was removed and a sterile dressing applied. The patient tolerated the procedure well without evidence of complications. us Marva Allen MD [facility] [place] ORDERABLES Final Result * CT Chest Abdomen Pelvis with IV Contrast (06/19/2024 1:57 PM EDT) Anatomical Region Laterality Modality Chest, Abdomen, Pelvis Computed Tomography 06/19/2024 1:39 PM EDT Impressions 06/21/2024 4:39 PM EDT 1. Status post sigmoidectomy and left lower quadrant colostomy. Interval decrease in size of ill-defined left psoas retroperitoneal abscess measuring 3.9 x 3.7 cm, previously 6.8 x 4.8 cm. 2. Extensive fat inflammation and fluid in the left hemiabdomen, adjacent to loops of bowel, with more loculated nonorganized fluid in the left lower abdomen measuring 3.8 x 2.7 cm. Additionally, there is loculated left peritoneal fluid measuring 4.6 x 3.3 cm, to the left of the left psoas, new/increased from prior study. 3. Moderate to large left and small right pleural effusions. Complete collapse of the left lower lobe and near complete collapse of the left upper lobe. 4. Scattered areas of ill-defined groundglass opacities in the right lung, likely infectious/inflammatory in etiology. 5. Hepatic steatosis. Narrative 06/21/2024 4:39 PM EDT EXAMINATION: CT CHEST, ABDOMEN AND PELVIS WITH CONTRAST CLINICAL INFORMATION: evaluate rising WBC, concern for pneumonia, concern for intra-abdominal process s/p hemicolectomy / perf diverticulitis, known psoas abscess. COMPARISON: CT abdomen pelvis 06/12/2024 TECHNIQUE: Multidetector volumetric imaging was performed from the thoracic inlet through the pubic symphysis following the administration of: Oral contrast: No Intravenous contrast: 80 mL Omnipaque 350 No contrast reaction reported Sagittal and coronal reformatted images were obtained on the technologist's workstation. This CT examination was performed using dose optimization techniques as appropriate, variously including the following: *Automated exposure control *Adjustment of mA and/or kV according to patient size (this includes techniques or standardized protocols for targeted exams where dose is matched to indication/reason for exam; i.e. extremities or head) *Use of iterative reconstruction technique Total exam dose-length product 1174 mGy-cm. FINDINGS: CHEST: LUNG: Central airways are patent. Scattered areas of ill-defined groundglass opacities in the right lung. Right lower lobe subsegmental atelectasis. Complete collapse of the left lower lobe and near complete collapse of the left upper lobe. PLEURA: Moderate to large left and small right pleural effusions. No pneumothorax. MEDIASTINUM: Heart size is within normal limits. No pericardial effusion. No mediastinal lymphadenopathy. Thyroid gland is unremarkable. No hilar lymphadenopathy. VASCULAR: No thoracic aortic aneurysm or dissection. Central pulmonary arteries opacify normally. CHEST WALL/AXILLA: No axillary or internal mammary lymphadenopathy. Unchanged soft tissue lesion in the right breast measuring 1.6 cm, with likely biopsy clip/calcification in place. ABDOMEN/PELVIS: LIVER, GALLBLADDER, AND BILIARY TREE: Diffusely hypoattenuating liver. No focal liver lesion. No intrahepatic biliary duct dilatation. Gallbladder is surgically absent. PANCREAS: Normal; no mass or surrounding fluid. SPLEEN: Normal size. No focal lesion. ADRENAL GLANDS: Normal; no mass. KIDNEYS AND URETERS: The kidneys are normal in size, shape, and attenuation. No hydronephrosis, hydroureter, or calculi. GASTROINTESTINAL TRACT: Status post sigmoidectomy and left lower quadrant colostomy. Interval decrease in size of ill-defined left psoas retroperitoneal abscess measuring 3.9 x 3.7 cm (5:689, previously 6.8 x 4.8 cm. Status post Delmy-en-Y gastric bypass. Extensive fat inflammation and fluid in the left hemiabdomen, adjacent to loops of bowel, with more loculated nonorganized fluid in the left lower abdomen measuring 3.8 x 2.7 cm (5:643). Additionally, there is loculated left peritoneal fluid measuring 4.6 x 3.3 cm, to the left of the left psoas (5:302), new/increased from prior study. PERITONEUM/RETROPERITONEUM: Fluid collections as detailed above. Locules of extraluminal air, likely iatrogenic in from prior sigmoid perforation. ABDOMINAL WALL: Postoperative changes in the left anterior abdomen. No hernia. LYMPHOVASCULAR STRUCTURES: No lymphadenopathy. The aorta is unremarkable. BLADDER: No focal mass or wall thickening seen. No bladder calculi. PELVIC VISCERA: Calcified lesion in the uterus, likely calcified fibroid, measuring 1.8 cm. OSSEOUS STRUCTURES: Diffuse osteopenia. Multilevel [id number] degenerative changes of the thoracolumbar spine. Bilateral hip osteoarthritis. Procedure Note Addison Barragan MD - 06/21/2024 EXAMINATION: CT CHEST, ABDOMEN AND PELVIS WITH CONTRAST CLINICAL INFORMATION: evaluate rising WBC, concern for pneumonia, concern for intra-abdominal process s/p hemicolectomy 2/2 perf diverticulitis, known psoas abscess. COMPARISON: CT abdomen pelvis 06/12/2024 TECHNIQUE: Multidetector volumetric imaging was performed from the thoracic inlet through the pubic symphysis following the administration of: Oral contrast: No Intravenous contrast: 80 mL Omnipaque 350 No contrast reaction reported Sagittal and coronal reformatted images were obtained on the technologist's workstation. This CT examination was performed using dose optimization techniques as appropriate, variously including the following: *Automated exposure control *Adjustment of mA and/or kV according to patient size (this includes techniques or standardized protocols for targeted exams where dose is matched to indication/reason for exam; i.e. extremities or head) *Use of iterative reconstruction technique Total exam dose-length product 1174 mGy-cm. FINDINGS: CHEST: LUNG: Central airways are patent. Scattered areas of ill-defined groundglass opacities in the right lung. Right lower lobe subsegmental atelectasis. Complete collapse of the left lower lobe and near complete collapse of the left upper lobe. PLEURA: Moderate to large left and small right pleural effusions. No pneumothorax. MEDIASTINUM: Heart size is within normal limits. No pericardial effusion. No mediastinal lymphadenopathy. Thyroid gland is unremarkable. No hilar lymphadenopathy. VASCULAR: No thoracic aortic aneurysm or dissection. Central pulmonary arteries opacify normally. CHEST WALL/AXILLA: No axillary or internal mammary lymphadenopathy. Unchanged soft tissue lesion in the right breast measuring 1.6 cm, with likely biopsy clip/calcification in place. ABDOMEN/PELVIS: LIVER, GALLBLADDER, AND BILIARY TREE: Diffusely hypoattenuating liver. No focal liver lesion. No intrahepatic biliary duct dilatation. Gallbladder is surgically absent. PANCREAS: Normal; no mass or surrounding fluid. SPLEEN: Normal size. No focal lesion. ADRENAL GLANDS: Normal; no mass. KIDNEYS AND URETERS: The kidneys are normal in size, shape, and attenuation. No hydronephrosis, hydroureter, or calculi. GASTROINTESTINAL TRACT: Status post sigmoidectomy and left lower quadrant colostomy. Interval decrease in size of ill-defined left psoas retroperitoneal abscess measuring 3.9 x 3.7 cm (5:689, previously 6.8 x 4.8 cm. Status post Delmy-en-Y gastric bypass. Extensive fat inflammation and fluid in the left hemiabdomen, adjacent to loops of bowel, with more loculated nonorganized fluid in the left lower abdomen measuring 3.8 x 2.7 cm (5:643). Additionally, there is loculated left peritoneal fluid measuring 4.6 x 3.3 cm, to the left of the left psoas (5:302), new/increased from prior study. PERITONEUM/RETROPERITONEUM: Fluid collections as detailed above. Locules of extraluminal air, likely iatrogenic in from prior sigmoid perforation. ABDOMINAL WALL: Postoperative changes in the left anterior abdomen. No hernia. LYMPHOVASCULAR STRUCTURES: No lymphadenopathy. The aorta is unremarkable. BLADDER: No focal mass or wall thickening seen. No bladder calculi. PELVIC VISCERA: Calcified lesion in the uterus, likely calcified fibroid, measuring 1.8 cm. OSSEOUS STRUCTURES: Diffuse osteopenia. Multilevel [id number] degenerative changes of the thoracolumbar spine. Bilateral hip osteoarthritis. IMPRESSION: 1. Status post sigmoidectomy and left lower quadrant colostomy. Interval decrease in size of ill-defined left psoas retroperitoneal abscess measuring 3.9 x 3.7 cm, previously 6.8 x 4.8 cm. 2. Extensive fat inflammation and fluid in the left hemiabdomen, adjacent to loops of bowel, with more loculated nonorganized fluid in the left lower abdomen measuring 3.8 x 2.7 cm. Additionally, there is loculated left peritoneal fluid measuring 4.6 x 3.3 cm, to the left of the left psoas, new/increased from prior study. 3. Moderate to large left and small right pleural effusions. Complete collapse of the left lower lobe and near complete collapse of the left upper lobe. 4. Scattered areas of ill-defined groundglass opacities in the right lung, likely infectious/inflammatory in etiology. 5. Hepatic steatosis. Aurora RICHARDS IMG CT ORDERABLES Final Result * ECHOCARDIOGRAM COMPREHENSIVE (06/17/2024 1:47 PM EDT) IVS (F:0.6-0.9, M:0.6-1.0) 1.1 cm IVS Mean (F:0.6-0.9, M:0.6-1.0) 1.1 cm LVIDD (F:3.8-5.2, M:4.2-5.8) 3.1 cm LVIDD Mean (F:3.8-5.2, M:4.2-5.8) 3.1 cm LVIDS (F:2.2-3.5, M:2.5-4.0) 2.1 cm LVIDS (F:2.2-3.5, M:2.5-4.0) 2.1 cm LVOT diameter 2.2 cm LVOT diameter mean 2.2 cm LVOT mn grad mean 2.0 mmHg LVOT VTI MEAN 15.9 cm LVOT mn grad 2.0 mmHg LVOT VTI 15.9 cm LVOT peak troy 1.0 m/s LVOT peak troy mean 1.0 m/s PW (F:0.6-0.9, M:0.6-1.0) 0.8 cm PW Mean (F:0.6-0.9, M:0.6-1.0) 0.8 cm LA sup-inf (apical 2-ch view) 5.02 cm Sinuses of Valsalva 3.0 cm Sinuses of Valsalva Mean 3.0 cm Ascending aorta 3.3 cm Ascending aorta mean 3.3 cm E wave decelartion time 161 ms E wave decelartion time mean 161 ms MV Peak A-Wave 109.0 cm/s MV Peak A-Wave Mean 109.0 cm/s MV Peak E-Wave 76.3 cm/s MV Peak E-Wave Mean 76.3 cm/s RVOT peak VTI Mean 7.9 cm RVOT peak VTI 7.9 cm Heart Rate 106 bpm BP Systolic 123 mmHg BP Diastolic 54 mmHg Height 62.00 inches Weight 216.00 lbs LV Mass Index (F:43-95, M:49-115) 40.4 g/m2 LVOT stroke volume 60 mL LVOT area 3.8 cm2 E/A ratio 0.70 AV LVOT peak gradient 4.0 mmHg SVI 29 mL/m2 Ascending aorta Index 1.7 cm/m2 Sinuses of Valsalva Index 1.5 cm/m2 LV mass 79.8 g LVOT SI 30.59 mL/m2 LV RWT 0.52 Left Ventricular Cardiac Index 3.2 L/min/m2 Left Ventricular Cardiac Output 6.4 L/min BSA 1.98 m2 TR Peak Troy 3.0 m/s TR Peak Gradient 36 mmHg Aortic arch 3.0 cm Anatomical Region Laterality Modality Ultrasound Narrative 06/17/2024 2:13 PM EDT Concentric remodeling of the left ventricle is present. Left ventricular systolic function is low normal with an estimated ejection fraction of 50 - 54%. Right ventricle was not well visualized, but appears enlarged in limited views. Right ventricular systolic function is normal. There is mild to moderate tricuspid regurgitation. The estimated right ventricular systolic pressure is 36 mmHg plus right atrial pressure. There is no previous study for comparison in our system. Technical Details The study was technically difficult. Left Ventricle The left ventricle is normal in size. Concentric remodeling of the left ventricle is present. Left ventricular systolic function is low normal with an estimated ejection fraction of 50 - 54%. No wall motion abnormalities are present. Diastolic function could not be accurately assessed. Right Ventricle Right ventricle was not well visualized, but appears enlarged in limited views. Right ventricular systolic function is normal. Left Atrium The left atrium was not well visualized. Right Atrium Right atrium was not well visualized. IVC/SVC The IVC was not well visualized. Mitral Valve The mitral valve was not well visualized. There is mild mitral posterior annular calcification. There is no mitral regurgitation. Tricuspid Valve The tricuspid valve is structurally normal. There is mild to moderate tricuspid regurgitation. The estimated right ventricular systolic pressure is 36 mmHg plus right atrial pressure. The right atrial pressure could not be obtained. Aortic Valve The aortic valve was not well visualized. The aortic valve is tricuspid. The aortic valve leaflets are mildly calcified. Pulmonic Valve The pulmonic valve was not well visualized. There is no pulmonic regurgitation. Ascending Aorta The aortic root and ascending aorta are normal in dimension. Pericardium Echogenic material is seen in the anterior pericardial space, consistent with a fat pad. There is no pericardial effusion. Prior Study There is no previous study for comparison in our system. us Willow Wade APRN CV ECHO ORDERABLES Final Res ult * (ABNORMAL) Vancomycin Level, Random (06/16/2024 9:00 AM EDT) Only the most recent of3 resultswithin the time period is included. Vancomycin, Random 37(HH) mg/L 06/16/2024 11:35 AM EDT [facility] Comment:No reference range e stablished for random levels. Time of Last Dose Information not given 06/16/2024 9:14 AM EDT [facility] 06/16/2024 9:00 AM EDT 06/16/2024 9:14 AM EDT us Willow Wade APRN LAB BLOOD ORDERABLES Final R esult [address] [address], [place] [address] * Hemoglobin A1c with Estimated Average Glucose (06/16/2024 12:27 AM EDT) Hemoglobin A1C 5.0 <5.7 % 06/16/2024 1:59 AM EDT [facility] Comment: A1c% Interpretation 5.7 - 6.0 Increase risk of diabetes 6.1 - 6.4 Higher risk of diabetes > or = 6.5 Consistent with diabetes Diabetes Care, 33(Supp 1):S1-S61, 2010 Estimated Average Glucose 97 mg/dL 06/16/2024 1:59 AM EDT [facility] Blood Blood specimen / Unknown 06/16/2024 12:27 AM EDT 06/16/2024 1:03 AM EDT Natalie Melton APRN LAB BLOOD ORDERABLES Gely l Result Performing Organization Address City/[facility]/[place] [address], [place] [address] * LACTIC ACID, PLASMA (06/16/2024 12:27 AM EDT) Only the most recent of3 resultswithin the time period is included. Lactic Acid 1.5 0.5 - 1.9 mmol/L 06/16/2024 1:33 AM EDT [facility] Blood Blood specimen / Unknown 06/16/2024 12:27 AM EDT 06/16/2024 1:03 AM EDT Natalie Melton APRN LAB BLOOD ORDERABLES [place] [address], [place] [address] * Blood Culture (06/15/2024 8:59 PM EDT) Only the most recent of2 resultswithin the time period is included. Culture Sterile after 5 days 06/21/2024 8:17 AM EDT [facility] Blood Blood specimen / Unknown 06/15/2024 8:59 PM EDT 06/16/2024 7:00 AM EDT Comment:Blood us Willow Wade POST ACUTE CARE NURSE LAB BLOOD ORDERABLES Final R esult [facility] [address] [place] [address], [place] * XR Chest 1 view-Portable (STAT) (06/15/2024 6:43 PM EDT) Only the most recent of3 resultswithin the time period is included. Anatomical Region Laterality Modality Chest Computed Radiogr aphy 06/15/2024 6:00 PM EDT Impressions 06/16/2024 11:33 AM EDT 1. Right IJ CVC with the tip overlying the right atrium. 2. Dense left basilar opacity likely represents combination of atelectasis and moderate pleural effusion, increased from prior. Cannot rule out superimposed infectious/inflammatory process. 3. Pulmonary vascular congestion with interstitial edema. Interpreted by: David Guy DO Material Clerk I personally reviewed the images and the resident's preliminary report and AGREE with the report as it is now presented ([id number]). Narrative 06/16/2024 11:33 AM EDT EXAMINATION: XR CHEST CLINICAL INFORMATION: RIJ TLC placement COMPARISON: Chest radiograph from 06/12/2024. TECHNIQUE: Frontal views of the chest were obtained. FINDINGS: Right IJ CVC with the tip overlying the right atrium. Lungs are hypoexpanded. Dense left basilar opacity. Hazy opacification of the left lung likely due to underpenetration. Central vascular congestion with diffuse interstitial opacities. Moderate left pleural effusion. No pneumothorax. The cardiomediastinal silhouette is suboptimally evaluated. No acute osseous abnormality. Procedure Note Naseem Martinez MD - 06/16/2024 EXAMINATION: XR CHEST CLINICAL INFORMATION: RIJ TLC placement COMPARISON: Chest radiograph from 06/12/2024. TECHNIQUE: Frontal views of the chest were obtained. FINDINGS: Right IJ CVC with the tip overlying the right atrium. Lungs are hypoexpanded. Dense left basilar opacity. Hazy opacification of the left lung likely due to underpenetration. Central vascular congestion with diffuse interstitial opacities. Moderate left pleural effusion. No pneumothorax. The cardiomediastinal silhouette is suboptimally evaluated. No acute osseous abnormality. IMPRESSION: 1. Right IJ CVC with the tip overlying the right atrium. 2. Dense left basilar opacity likely represents combination of atelectasis and moderate pleural effusion, increased from prior. Cannot rule out superimposed infectious/inflammatory process. 3. Pulmonary vascular congestion with interstitial edema. Interpreted by: David Guy DO Material Clerk I personally reviewed the images and the resident's preliminary report and AGREE with the report as it is now presented ([email or web address]). us Amirah RICHARDS IMG DIAGNOSTIC IMAGING ORDERABL ES Final Result * US Guided Bedside Central Line Placement (06/15/2024 5:50 PM EDT) Anatomical Region Laterality Modality Ultrasound Narrative 06/15/2024 5:54 PM EDT Central Line Insertion Note INDICATIONS: Gilberto GIRON is a 73 y.o. old female with lack of IV access in the setting of additional IV access need- team discussed with Dr Morelos REQUESTING PRACTITIONER: MAURICE Gatica CLINICIAN(S): MAURICE Bull MEDICATIONS: 5 ml 1% lidocaine. CONSENT: Informed consent was obtained from the patient prior to the procedure. During this process, the procedure and potential alternatives were explained along with the intended outcome and benefits. The risks of the procedure, including the possibility of an unsuccessful procedure as well as the risk of not doing the procedure were discussed. the patient was given the opportunity to ask any questions regarding the procedure and appeared competent to make medical decisions. A signed consent form which documents this discussion was placed in the medical record. A timeout procedure was performed. DESCRIPTION OF PROCEDURE: The patient was placed in the supine position in their hospital bed. Next the right neck was prepped and draped in sterile fashion with maximum sterile barrier. The ultrasound probe was also draped using sterile technique. Under ultrasound guidance, the right internal jugular vein was identified showing patent vasculature with safe window for access. Next the skin and subcutaneous tissue overlying the right internal jugular vein was anesthetized with 5cc of 1% lidocaine solution. Once appropriate analgesia was obtained, under direct ultrasound guidance an 18-gauge needle was passed through the skin and into the internal jugular vein without difficulty. Venous blood was aspirated. A guidewire was then threaded through the needle and advanced into the superior vena cava. The guidewire placement was confirmed with ultrasound and an image was saved. The needle was removed and a stab incision was made at the insertion site of the guidewire. The tract was then dilated. A 7 romanian triple-lumen catheter was then threaded over the guidewire and advanced to 15 centimeters. The guidewire was removed and all 3 ports were capped with claves. Each port was flushed with 10 cc of sterile saline. The triple lumen catheter was affixed to the skin using 3-0 silk sutures. All blood was cleaned from the insertion site. A sterile chlorhexidine gel patch occlusive dressing was applied. Finally a portable chest x-ray was obtained to confirm tip placement. This was pending at the time of the note. ATTEMPTS: 1 COMPLICATIONS: none noted at the time of placement EBL: <5 cc Please Contact Inpatient Procedure team via tiger text for any questions MAURICE Bull-Luna 06/15/24 at 5:53 PM additional us Jess RICHARDS [facility] [place] ORDERABLES Final Re sult * INSJ NON-TUNNELED CENTRAL VENOUS CATH AGE 5 YR/> (06/15/2024 5:50 PM EDT) Narrative Amirah Howard PA - 06/15/2024 5:50 PM EDT MAURICE Bull 07/09/2024 1:01 PM Central Line Insertion Date/Time: 06/15/2024 5:50 PM Performed by: MAURICE Bull Authorized by: MUARICE Bull Consent: Verbal consent obtained. Written consent obtained Risks and benefits: risks, benefits and alternatives were discussed Consent given by: patient Patient understanding: patient states understanding of the procedure being performed Patient consent: the patient's understanding of the procedure matches consent given Procedure consent: procedure consent matches procedure scheduled Relevant documents: relevant documents present and verified Site marked: the operative site was marked Imaging studies: imaging studies available Patient identity confirmed: verbally with patient and arm band Time out: Immediately prior to procedure a time out was called to verify the correct patient, procedure, equipment, account support rep and site/side marked as required. Indications: vascular access (additional IV access needed and administration of IV ABX and need for TPN) Anesthesia: Local Anesthetic: lidocaine 1% without epinephrine Anesthetic total: 10 mL Preparation: skin prepped with ChloraPrep Skin prep agent dried: skin prep agent completely dried prior to procedure Sterile barriers: all five maximum sterile barriers used - cap, mask, sterile gown, sterile gloves, and large sterile sheet Hand hygiene: hand hygiene performed prior to central venous catheter insertion Location details: right internal jugular Site selection rationale: best and easiest access Patient position: flat Catheter type: triple lumen Pre-procedure: landmarks identified Ultrasound guidance: yes Sterile ultrasound techniques: sterile gel and sterile probe covers were used Number of attempts: 1 Successful placement: yes Post-procedure: line sutured Assessment: blood return through all ports and free fluid flow Patient tolerance: patient tolerated the procedure well with no immediate complications Comments: CXR in PACU pending Amirah RICHARDS PROCEDURE/MINOR SURGICAL ORDERA BLES Edited Result - Final * (ABNORMAL) PROCALCITONIN (06/15/2024 5:00 PM EDT) Procalcitonin 0.10(H) <0.09 ng/mL 06/15/2024 5:57 PM EDT [facility] Comment: (NOTE) Procalcitonin (PCT) Guided Antibiotic Management for Respiratory Infection Initial PCT interpretation: < 0.09 ng/mL: Antibiotics NOT likely needed (bacterial etiology very unlikely). 0.09 - 0.25 ng/mL: Antibiotics are NOT likely needed unless clinical concern for infection (bacterial etiology unlikely). 0.26 - 0.5 ng/mL: Antibiotics likely needed (bacterial etiology likely). Repeat PCT after 3-5 days. > 0.5 ng/mL: Antibiotics likely needed (bacterial etiology very likely). Repeat PCT after 3-5 days. Repeat PCT interpretation: Initial PCT < 5 ng/mL: Consider stopping antibiotics when PCT < 0.25 ng/mL. Initial PCT > 5 ng/mL: Consider stopping antibiotics when 80% reduction in PCT from initial value or PCT < 0.25 ng/mL. The above interpretative values are not appropriate for non-respiratory infectious diagnostics 06/15/2024 5:00 PM EDT 06/15/2024 5:12 PM EDT Cristiano Koo MD LAB BLOOD ORDERABLES Final Re sult Performing Organization Address [facility] [place] [address], [place] [address] * Thrombin Time (06/15/2024 5:00 PM EDT) Anticoagulant NO ANTI COAGULANT MEDS 06/15/2024 4:51 PM EDT [facility] Thrombin Time 17.5 12.7 - 19.2 seconds 06/15/2024 5:31 PM EDT [facility] Blood Blood specimen / Unknown 06/15/2024 5:00 PM EDT 06/15/2024 5:13 PM EDT Collette Garcia APRN LAB BLOOD ORDERABLES Final R esult Performing Organization Address City/[facility]/[place] [address], [place] [address] * Fibrinogen Level (06/15/2024 5:00 PM EDT) Fibrinogen 277 148 - 435 mg/dL 06/15/2024 5:31 PM EDT [facility] Blood Blood specimen / Unknown 06/15/2024 5:00 PM EDT 06/15/2024 5:13 PM EDT us Collette Garcia POST ACUTE CARE NURSE LAB BLOOD ORDERABLES Final R esult [address] [address], [address] [address] * Block - Other (06/15/2024 11:13 AM EDT) Narrative Cong May MD - 06/15/2024 11:13 AM EDT Hussein Rutherford MD 06/15/2024 11:13 AM Anesthesia Procedure Note - Block Procedure Patient Name: Gilberto GIRON : 1950 Patient location: pre-op Reason for block: post-op pain management Procedure diagnosis: Post-operative pain Procedure Start Time: 06/15/2024 10:55 AM Procedure End Time: 06/15/2024 11:03 AM Performed by: Other anesthesia staff MD Hussein Benítez MD Chart Verification ID band applied and present Patient ID verified via arm band, verbally with patient. H&P verified: Yes Pre-op test results in chart Consents confirmed: informed, anesthesia and operative Nursing assessment complete: yes Anesthesia questionnaire complete: yes Antibiotic ordered: n/a Procedure Verification/TIMEOUT Correct procedure: yes Correct patient position: yes Correct laterality: not applicable Correct site: yes Site/side marked: n/a Sterility reviewed: yes Special equipment or implants: n/a Safety precautions discussed with procedural staff: yes Preanesthetic Checklist Monitors and equipment checked Patient pre-procedure mental status: awake The patient was sedated prior to procedure. Patient state at time: moderate Patient Preprocedure Preparation Skin prep: skin prepped with 2% chlorhexidine-completely dried prior to procedure Hand hygeine performed prior to needle/catheter insertion Sterile barriers in place: Cap, gloves and mask Procedure Details Block A: rectus sheath - single shot technique Short-bevel needle, 22 g, 80 mm Laterality bilateral Procedure Details Block B: TAP - mid abdominal- single-shot technique short-bevel needle, 22 g, 80 mm Laterality bilateral Technique(s): Ultrasound guided Post-procedure Verification Counts correct: n/a Specimens labeled correctly: n/a Equipment problems to be addressed: n/a Outcomes Result: successful block Outcome: block complete Patient tolerated procedure well. Additional Comments: Nerve block requested by surgeon for post-op analgesia. Pre-block time out performed. Sterile prep with chloraprep was done. Continuous in plane visualization of needle and needle tip. Good ultrasound visualization of abdominal wall muscle layers for mid-abdominal TAP approach. Appropriate local anesthetic spread pattern in TAP planes at mid-abdominal level. Good ultrasound visualization of rectus abdominis with appropriate local anesthetic spread pattern deep to rectus abdominis. Incremental injection with negative aspiration with 10mL syringe throughout all injections. Patient tolerated procedure well, no complications. us Hussein Rutherford MD [place] ANESTHESIA Final Re sult * VAS VENOUS DUPLEX ARM (DVT)-RIGHT (06/15/2024 8:32 AM EDT) Anatomical Region Laterality Modality Ultrasound 06/15/2024 6:45 AM EDT Narrative 06/15/2024 9:50 AM EDT Table formatting from the original result was not included. Department: [facility] Patient: [id number] (JUAN DIEGOGILBERTO CERDA) Patient Location: ..[address] CPT Code: 11210 ICD-9: Referring Physician: ZUHAIR VAZQUEZ Impression Right upper extremity venous duplex ultrasound exam demonstrates normal Doppler flow with no thrombus seen on walker scale image. Findings are not consistent with the presence of deep vein thrombosis. Indications Right Swelling of Limb [M79.89]. 73 year old female transferred from an OSH with DVT LLE, PE, diverticulitis and psoas abscess Findings: Right Impression Spont Phasic Compress Internal Jugular Vein Normal Yes Yes Complete Innominate Vein Normal Yes Yes Proximal Subclavian Vein Normal Yes Yes Distal Subclavian Vein Normal Yes Yes Complete Axillary Normal Yes Yes Complete Brachial Normal Complete Cephalic Normal Complete Basilic Normal Complete Left Impression Spont Phasic Proximal Subclavian Vein Normal Yes Yes Electronically Signed by: Amber Mayorga on 2024-06-15 09:50:14 AM End of Report Procedure Note Amber Mayorga MD - 06/15/2024 Department: [facility] Patient: [id number] (GILBERTO GIRON) Patient Location: ...[facility] CPT Code: 67459 ICD-9: Referring Physician: ZUHAIR VAZQUEZ Impression Right upper extremity venous duplex ultrasound exam demonstrates normalDoppler flow with no thrombus seen on walker scale image. Findings are notconsistent with the presence of deep vein thrombosis. Indications Right Swelling of Limb [M79.89]. 73 year old female transferred from an OSH with DVT LLE, PE,diverticulitis and psoas abscess Findings: Right Impression Spont Phasic Compress Internal Jugular Vein Normal Yes Yes Complete Innominate Vein Normal Yes Yes Proximal Subclavian Vein Normal Yes Yes Distal Subclavian Vein Normal Yes Yes Complete Axillary Normal Yes Yes Complete Brachial Normal Complete Cephalic Normal Complete Basilic Normal Complete Left Impression Spont Phasic Proximal Subclavian Vein Normal Yes Yes Electronically Signed by: Amber Mayorga on 2024-06-15 09:50:14 AM End of Report us Zuhair Vazquez MD VASCULAR LAB ORDERABLES Final Result * VAS VENOUS DUPLEX LEG (DVT)-BILATERAL (06/15/2024 8:31 AM EDT) Anatomical Region Laterality Modality Ultrasound 06/15/2024 6:40 AM EDT Narrative 06/15/2024 9:50 AM EDT Table formatting from the original result was not included. Department: [facility] Patient: [id number] (GILBERTO GIRON) Patient Location: ...[facility] CPT Code: 66885 ICD-9: Referring Physician: ANA LESTER Impression Right lower extremity venous duplex ultrasound exam demonstrates normal Doppler flow with no thrombus seen on walker scale image. Findings are not consistent with the presence of deep vein thrombosis. Left lower extremity venous duplex ultrasound demonstrates acute thrombus involving the proximal femoral vein, the popliteal vein, posterior tibial veins and peroneal veins. Diagnosis of acute thrombosis is supported by the low level of echogenicity of the thrombus in the distended vein. The common femoral vein and mid to distal femoral vein are patent. Indications Personal History Hx Thrombus/Embolism [Z86.718]. 73 year old female transferred from an OSH with DVT LLE, PE, diverticulitis and psoas abscess Findings: Right Impression Phasic Compressible Common Femoral Vein Normal Yes Complete Proximal femoral vein Normal Complete Mid femoral vein Normal Complete Distal femoral vein Normal Complete Popliteal Normal Complete Posterior Tibial Vein Normal Complete Peroneal Normal Complete GSV Saphenofemoral junction Normal Complete Left Impression Phasic Compressible Common Femoral Vein Normal Yes Complete Proximal femoral vein Acute Partial Thrombus Partial Mid femoral vein Normal Complete Distal femoral vein Normal Complete Popliteal Acute thrombus Non-compressible Posterior Tibial Vein Acute thrombus Non-compressible Peroneal Acute thrombus Non-compressible GSV Saphenofemoral junction Normal Complete Electronically Signed by: Amber Mayorga on 2024-06-15 09:50:40 AM End of Report Procedure Note Amber Mayorga MD - 06/15/2024 Department: [facility] Patient: [id number] (GILBERTO GIRON) Patient Location: .[address] CPT Code: 13160 ICD-9: Referring Physician: ANA LESTER Impression Right lower extremity venous duplex ultrasound exam demonstrates normalDoppler flow with no thrombus seen on walker scale image. Findings are notconsistent with the presence of deep vein thrombosis. Left lower extremity venous duplex ultrasound demonstrates acute thrombusinvolving the proximal femoral vein, the popliteal vein, posterior tibialveins and peroneal veins. Diagnosis of acute thrombosis is supported bythe low level of echogenicity of the thrombus in the distended vein. Thecommon femoral vein and mid to distal femoral vein are patent. Indications Personal History Hx Thrombus/Embolism [Z86.718]. 73 year old female transferred from an OSH with DVT LLE, PE,diverticulitis and psoas abscess Findings: Right Impression Phasic Compressible Common Femoral Vein Normal Yes Complete Proximal femoral vein Normal Complete Mid femoral vein Normal Complete Distal femoral vein Normal Complete Popliteal Normal Complete Posterior Tibial Vein Normal Complete Peroneal Normal Complete GSV Saphenofemoral junction Normal Complete Left Impression Phasic Compressible Common Femoral Vein Normal Yes Complete Proximal femoral vein Acute Partial Thrombus Partial Mid femoral vein Normal Complete Distal femoral vein Normal Complete Popliteal Acute thrombus Non-compressible Posterior Tibial Vein Acute thrombus Non-compressible Peroneal Acute thrombus Non-compressible GSV Saphenofemoral junction Normal Complete Electronically Signed by: Amber Mayorga on 2024-06-15 09:50:40 AM End of Report Ana Lester MD VASCULAR LAB ORDERABLES Final Result * ABO Confirmation (06/15/2024 8:20 AM EDT) ABO/Rh O POSITIVE 06/15/2024 10:33 AM EDT [facility] Blood specimen / Unknown 06/15/2024 8:20 AM EDT 06/15/2024 9:02 AM EDT Elena Farmer MD BLOOD BANK TEST [place] [address], [address] [address] * Pathology (06/15/2024 12:00 AM EDT) Report [facility] CT [id number] CLIA ID [id number] [address] [place] [address] [phone] Surgical Pathology Report PATIENT NAME: GILBERTO GIRON REC NUMBER: [id number] (AGE): 1950 (Age: 73) SPECIMEN NUMBER: [id number] DATE OBTAINED: 06/15/2024 DIAGNOSIS A. SMALL BOWEL, RESECTION: SMALL BOWEL WALL WITH SUBSEROSAL GRANULATION TISSUE/FISTULA FORMATION AND ASSOCIATED SEROSITIS. MARGINS ARE UNINVOLVED. B. LEFT COLON, COLECTOMY: ACUTE DIVERTICULITIS WITH TRANSMURAL ABSCESS FORMATION/FISTULA AND ASSOCIATED SEROSITIS. MARGINS ARE UNINVOLVED. BACKGROUND OF DIVERTICULOSIS COLI. mo/06/20/2024 Electronically Signed Out RONEN KINCAID MD COMMENT [id number] Clinical Information and History: Diverticulitis, Psoas abscess Tissue(s) Submitted: A: SMALL BOWEL TRT 1428 B: LEFT COLON TRT 1438 Gross Description: Specimen A received in formalin and labeled per the requisition as small bowel (TRT 1428) consists of an unoriented segment of small bowel (5.7 cm in length, 3.5 cm in diameter), with a minimal amount of attached adipose tissue (measuring up to 1.2 cm). The specimen is received with both margins stapled closed; the staple lines are removed, and the underlying tissue is inked as follows: Margin #1-black, margin #2-blue. The serosa ranges from rangel-pink smooth and glistening to markedly shaggy with abundant adhesions (encompassing an area measuring 2.2 x 2.2 cm), which comes within 1.0 cm of the nearest margin (margin #1). The specimen is opened, revealing rangel-pink and glistening mucosa with preservation of normal folds. The wall of the bowel averages 0.6 cm in thickness and is grossly unremarkable. Steam Hammer Operator sections of the specimen are submitted in A1-A5 as follows: A1: Steam Hammer Operator margin #1 (inked black), en face A2: Steam Hammer Operator margin #2 (inked blue), en face A3-A4: Steam Hammer Operator full-thickness bowel wall, to include senior patient account representative shaggy serosa A5: Steam Hammer Operator full-thickness section of normal bowel (SC) Specimen B received in formalin and labeled per the requisition as left colon (TRT 1438) consists of an unoriented segment of colon (19.5 cm in length, 4.0 cm in diameter), with an abundant amount of attached adipose tissue (measuring up to 3.5 cm). The specimen is received with one margin stapled closed (margin #1, inked black), and one margin received open (margin #2, inked blue). The specimen is remarkable for a centrally located area of serosal retraction with abundant dense adhesions and cautery artifact (area measuring 8.0 x 4.0 cm), which comes within 4.0 cm of margin #1, and 8.0 cm of margin #2. This area is inked green. The remaining serosa is predominantly rangel-pink and unremarkable. The specimen is opened, revealing the underlying mucosa to be rangel-pink and glistening with preservation of normal folds. There is an area of wall thickening which corresponds with the aforementioned area of serosal retraction. The wall in this area measures up to 1.7 cm in thickness, and the bowel lumen is reduced to approximately 2.0 cm in circumference (compared to 6.5 cm in circumference on either side of the area of stricture). The specimen is sectioned, revealing the presence of multiple (greater than 10) diverticula (ranging from 0.2 to 1.0 cm in greatest dimension), which are predominantly located centrally within the aforementioned area of stricture, some of which are impacted by fecaliths, and/or demonstrate hyperemic mucosa. No definitive abscess cavities or perforations are grossly identified. The surrounding adipose tissue is remarkable for diffuse areas of firm, chalky, johnson yellow presumed fat necrosis, as well as areas of rangel-white presumed fibrosis and hemorrhage. In addition, 2 possible lymph nodes are identified within the surrounding pericolonic adipose tissue, which both measure 0.5 cm in greatest dimension, and are ovoid, rubbery to firm and rangel-pink. Steam Hammer Operator sections are submitted in B1-B10 as follows: B1: Steam Hammer Operator margin #1 (inked black), en face B2: Steam Hammer Operator margin #2 (inked blue), en face B3-B6: Steam Hammer Operator diverticula B7-B8: Steam Hammer Operator areas of presumed fat necrosis and hemorrhage, to include adjacent green inked shaggy serosal surface B9: Steam Hammer Operator normal full-thickness bowel wall B10: 2 possible lymph nodes, submitted in toto (MA) [facility] 06/15/2024 06/15/2024 3:2 0 PM EDT Comment:SMALL BOWEL TRT 1428 &LEFT COLON TRT 1438 Cristiano Koo MD PATHOLOGY/CYTOLOGY ORDERABLES Final Result [facility] See Below * Protein, Random Urine (06/13/2024 1:09 PM EDT) Protein Urine, Random 45 mg/dL 06/13/2024 2:00 PM EDT [facility] Comment:Reference range not established for random specimen. Urine Urine specimen / Unknown 06/13/2024 1:09 PM EDT 06/13/2024 1:21 PM EDT Zuhair Vazquez MD URINE ORDERABLES Final Result Performing Organization Address [facility] Co de Phone Number [address] [address], [address] [address] * (ABNORMAL) Folate Level (06/13/2024 10:32 AM EDT) Only the most recent of2 resultswithin the time period is included. Folate, Serum 5.2(L) >7.2 ng/mL 06/13/2024 11:45 AM EDT [facility] Blood Blood specimen / Unknown 06/13/2024 10:32 AM EDT 06/13/2024 11:04 AM EDT Zuhair Vazquez MD LAB BLOOD ORDERABLES Fi nal Result Performing Organization Address [facility] [place] [address], [address] [address] * (ABNORMAL) Vitamin B12 (06/13/2024 8:08 AM EDT) Vitamin B12 1,152(H) 243 - 894 pg/mL 06/13/2024 9:10 AM EDT [facility] Blood Blood specimen / Unknown 06/13/2024 8:08 AM EDT 06/13/2024 8:26 AM EDT Alpesh Kay MD LAB BLOOD ORDERABLES Final Result Performing Organization Address City/[facility]/ZIP Co de Phone Number [address] [address], [address] [address] * (ABNORMAL) ALBUMIN (06/13/2024 8:08 AM EDT) Albumin 1.5(L) 3.4 - 4.8 g/dL 06/13/2024 9:59 AM EDT [facility] 06/13/2024 8:08 AM EDT 06/13/2024 8:26 AM EDT us Alpesh Kay MD LAB BLOOD ORDERABLES Final Result Performing Organization Address [facility] [place] [address], [place] [address] * High Sensitivity Troponin T (06/11/2024 9:51 PM EDT) Only the most recent of2 resultswithin the time period is included. [facility] High Sensitivity Troponin T 11 <15 ng/L 06/11/2024 10:19 PM EDT [facility] Delta (Change) NO CHANGE <3 06/11/2024 10:19 PM EDT [facility] 06/11/2024 9:51 PM EDT 06/11/2024 9:53 PM EDT Elena Farmer MD LAB BLOOD ORDERABLES Final Result Performing Organization Address [facility] [place] [address], [place] [address] * (ABNORMAL) Comprehensive Metabolic Panel (06/11/2024 9:00 PM EDT) [facility] Glucose 93 65 - 99 mg/dL 06/11/2024 9:42 PM EDT [facility] Comment:Fasting: <100 mg/dL, Non-Fasting: <200 mg/dL (ADA 2005) Blood Urea Nitrogen (BUN) 9 8 - 21 mg/dL 06/11/2024 9:42 PM EDT [facility] Creatinine 0.5 0.4 - 1.1 mg/dL 06/11/2024 9:42 PM EDT [facility] eGFR >90 >59 06/11/2024 9:42 PM T [facility] Comment:CKD-EPI (2020) in mL /min/1.73 sq meters. Sodium 137 136 - 145 mmol/L 06/11/2024 9:42 PM EDT [facility] Potassium 3.2(L) 3.4 - 5.3 mmol/L 06/11/2024 9:42 PM [facility] Chloride 102 98 - 107 mmol/L 06/11/2024 9:42 PM [facility] CO2 27 22 - 33 mmol/L 06/11/2024 9:42 PM [facility] Calcium 6.8(LL) 8.7 - 10.5 mg/dL 06/11/2024 10:00 PM [facility] Comment:Test results repeate d. Alkaline Phosphatase 85 32 - 122 U/L 06/11/2024 9:42 PM [facility] Aspartate Aminotrans (AST) 9(L) 10 - 50 U/L 06/11/2024 9:42 PM [facility] Alanine Aminotrans (ALT) 13 10 - 50 U/L 06/11/2024 9:42 PM [facility] Bilirubin, Total 0.6 0.2 - 1.0 mg/dL 06/11/2024 9:42 PM [facility] Protein, Total 4.5(L) 6.3 - 8.3 g/dL 06/11/2024 9:42 PM [facility] Albumin 1.5(L) 3.4 - 4.8 g/dL 06/11/2024 9:42 PM [facility] BUN/Creatinine Ratio 18 10.0 - 25.0 Ratio 06/11/2024 9:42 PM [facility] Globulin 3.0 1.5 - 3.9 g/dL 06/11/2024 9:42 PM [facility] Albumin/Globulin Ratio 0.5(L) 1.0 - 3.0 Ratio 06/11/2024 9:42 PM [facility] Anion Gap 8 7 - 17 06/11/2024 9:42 PM [facility] Blood Blood specimen / Unknown 06/11/2024 9:00 PM EDT 06/11/2024 9:16 PM EDT us Elena Farmer MD LAB BLOOD ORDERABLES Final Result [address] [address], [address] [address] * BLOOD/BLOOD PRODUCTS-SCAN (06/11/2024) Narrative 06/11/2024 Ordered by an unspecified provider. us Generic Provider HX AMB PROCEDURES Final Result from Last 3 Months Insurance [facility] MEDICARE [facility] MEDICARE [facility] MEDICARE Advance Directives Documents on File Type Date Recorded Patient Steam Hammer Operator Expl anation Advance Directive-Scan 08/06/2024 CT AB DOMEN AND PELVIS W/ CONTRAST RESULTS TO ID Advance Directive-Scan 07/26/[address]24 [address] VISIT SUMMARY/LABS * Full Code (Latest Code Status on File) Date Activated Date Inactivated Comments 06/12/2024 1:16 AM Question Answer Comments Decision Thoroughly Discussed with: Patient Care Teams All Source Intelligence Relationship Specialty Start Date End Date Pcp, No PCP - General 07/16/24
[2024-08-26 12:02] LABS: Parathyroid Hormone Intact 48.6 pg/mL (8.7-77.1)
== END 2024-08-26 10:07 | disposition home or self-care (01) ==
LOC: HO.LAB 10:06
PROVIDERS: Absent Provider Internal Medicine Medical Oncology; PCP Nurse Practitioner Family; Referring Provider Nurse Practitioner Family; Visit Provider Internal Medicine Nephrology
DX: E21.0 Primary hyperparathyroidism (principal); I10 Essential (primary) hypertension; C50.911 Malignant neoplasm of unspecified site of right female breast
CPT/HCPCS: 36415; 80051; 80053; 82310; 82565; 83970; 84520; 85025

== ENCOUNTER 2024-09-01 13:14 | Outpatient (AMB) | payer OTHER, SELFPAY ==
[2024-09-01 13:24] VITALS: BP 113/64; PULSE 90; O2SAT 100; BMI 32.3
--- NOTE | 2024-09-01 13:24 | HO.NEPHOV ---
Vital Signs 09/01/24 13:24 Height 5 ft 2 in Weight 176 lb 6 oz BMI 32.3 BP 113/64 Blood Pressure Location Rt brachial Position Sitting Pulse 90 Pulse Source Pulse Oximeter Pulse Oximetry (%) 100 Oxygen Delivery Method Room Air Intake Visit Reasons: Hypertension-Conf Intake Note: Patient here for a follow-up. [employer]liance [employer] Counter Clerk Required: No Accompanied by: Spouse Allergies adhesive Allergy (Severe, Verified 09/01/24 13:32) Rash nystatin Allergy (Intermediate, Verified 09/01/24 13:32) Hives sulfide Allergy (Intermediate, Uncoded 06/11/24 09:11) Hives Do you need a note to return to daycare/school/sports/work: No HPI Comments Details: Chela connolly a 73-year-old delightful female with H/O hypertension. She has history of inappropriate sinus tachycardia. She has past medical history significant for hypertension, bronchiectasis, solitary pulmonary nodule, osteopenia, gastric bypass, neurofibromatosis, scoliosis, chronic LBP, carpal tunnel syndrome of both hands, vitamin D deficiency, elevated PTH, and anxiety. She is on Letrozole for history of right breast cancer. She has history of gastric bypass and had 1 episode of profound hypokalemia which has been corrected. She denies any coronary artery disease, congestive heart failure, carotid stenosis, peripheral arterial disease, history of renal artery stenosis or renal dysfunction. She recently had ruptured diverticular dise Her blood pressure control is optimal. She has lost significant weight. [facility] Medical History Levoscoliosis Osteoarthritis Dyspnea Breast cancer Pulmonary nodule Surgical History Hx of colonoscopy History of knee replacement procedure of right knee History of knee replacement procedure of left knee S/P lumpectomy, right breast Family History Father Scoliosis Gout HTN (hypertension) CVA (cerebral vascular accident) Mother Colon cancer CHF (congestive heart failure) Anxiety Depression Migraine COPD (chronic obstructive pulmonary disease) Cancer HTN (hypertension) CVA (cerebral vascular accident) Son SMA (spinal muscular atrophy) Carotid artery aneurysm Anterior horn cell disease Other Uterine cancer Social History Household Members: Spouse Both parents involved: No Caregiver staying overnight: No Housing: Apartment Are you a primary health care manager to a significant other at home: No Do you presently have visiting nurse or other home services: No Alcohol intake: current Alcohol intake frequency: a few times a week Alcohol type: wine Patient Tobacco Use Status: Never used Tobacco e-Cigarette/Vaping Use: Never Used service: No Current occupational status: retired Cognitive needs: No Hearing needs: No Vision needs: No Review of Systems Const All systems reviewed & are unremarkable except as noted in HPI and below Physical Exam Vital Signs: Last Vital Signs Pulse 90 09/01/24 13:24 BP 113/64 09/01/24 13:24 Pulse Ox 100 09/01/24 13:24 Oxygen Delivery Method Room Air 09/01/24 13:24 BMI result Body Mass Index 32.3 Const General: comfortable and no acute distress Orientation/consciousness: patient oriented x3 HEENT Head: Yes normocephalic Mouth: Normal oral and palatal mucosa present Eyes EOM: EOMs intact bilaterally Neck Neck: Yes supple Resp Auscultation: clear to auscultation bilaterally Cardio Jugular venous distension: no JVD Rate: regular rate GI Palpation (GI): Soft to palpation Auscultation: normal bowel sounds General: Yes no CVA tenderness Back/Spine/Pelvis Back: no CVA tenderness Skin General skin exam: no rashes or lesions noted Neuro General: patient oriented x3 and moves all extremities Extrem General: Yes edema Results Reviewed Nephrology Results: Hgb, (12.0-16.0) 11.0 g/dl L 08/26/24 WBC, (4.8-10.8) 7.0 X10*3/uL 08/26/24 Plt Count, (160-400) 401 X10*3/uL H Δ 08/26/24 Sodium, (135-145) 144 mmol/L 08/26/24 Potassium, (3.3-5.1) 3.6 mmol/L Δ 08/26/24 Chloride, (96-108) 108 mmol/L 08/26/24 Carbon Dioxide, (22-29) 29 mmol/L 08/26/24 BUN, (9-16) 7 mg/dL L 08/26/24 Creatinine, (0.5-1.4) 0.57 mg/dL 08/26/24 Calcium, (8.4-10.2) 9.3 mg/dL Δ 08/26/24 PTH Intact, (8.7-77.1) 48.6 pg/mL 08/26/24 Urine Protein, (Neg-Trace) 30 (1+) mg/dL H 06/11/24 Assessment & Plan Assessment & Plan (1) Essential hypertension: Code(s): I10 - Essential (primary) hypertension Category: Medical (2) Edema: Code(s): R60.9 - Edema, unspecified Category: Medical Qualifiers: Edema type: localized Qualified Code(s): R60.0 - Localized edema Plan Chela has hypertension which is well controlled now. She has not known to have any CAD or CHF. Her renal functions are normal. Given her pulmonary condition, she is at risk for multifocal atrial tachycardia. Her heart rate and blood pressure are very well controlled on current medication regimen. At this moment there is no recent suspect any secondary etiology for her hypertension. She maintains a very good low-sodium diet. W/U for high calcium showed an area of hyperactivity on one of the parathyroid glands. Her PTH had improved. I started her on lasix 20 mg to be taken as on a needed basis. She eventually needs reversal of her ostomy. I did not make any other changes. Answered all her and her 's questions. Follow-up appointment given Orders: Orders Creatinine 3 Weeks I10 - Essential (primary) hypertension Blood Urea Nitrogen 3 Weeks I10 - Essential (primary) hypertension Electrolytes 3 Weeks I10 - Essential (primary) hypertension Medications: New furosemide (Lasix) 20 mg PO DAILY PRN 30 tabs 0RF edema metoprolol succinate ER 25 mg PO DAILY 90 tabs 3RF metoprolol succinate ER 25 mg PO DAILY 90 tabs 3RF Coding Level of Care Code Est Pt Level 4 (12183) Diagnoses Essential hypertension I10 Localized edema R60.0 Edema type: localized
--- OUTSIDE RECORDS SUMMARY | 2024-09-01 15:35 | XMS_ITS ---
Author Name [facility] Organization Unknown Results Test Name/Text Value Interpretation Date Range Source POC Glucose 84.0 mg/dL Normal 07/03/2024 65 - 99 HHCCT POC Glucose 85.0 mg/dL Normal 07/02/2024 65 - 99 H[facility]CT POC Glucose 86.0 mg/dL Normal 07/02/2024 65 - 99 HHCCT BUN SerPl-mCnc 3.0 mg/dL Below low normal 07/02/2024 8 - 21 HHCCT Creat SerPl-mCnc 0.5 mg/dL Normal 07/02/2024 0.4 - 1.1 HH CCT CO2 SerPl-sCnc 24.0 mmol/L Normal 07/02/2024 22 - 33 HH CCT BUN/Creat SerPl 6.0 Ratio Below low normal 07/02/2024 10 - 2 5 HHCCT GFR/BSA.pred SerPlBld FFG-[id number]-VjAUyg >90.0 Normal 07/02/2024 59 - HHCCT Sodium SerPl-sCnc 137.0 mmol/L Normal 07/02/2024 136 - 14 5 HHCCT Chloride SerPl-sCnc 106.0 mmol/L Normal 07/02/2024 98 - 1 07 HHCCT Anion Gap Bld-sCnc 7.0 Normal 07/02/2024 7 - 17 HHCCT Calcium SerPl-mCnc 7.7 mg/dL Below low normal 07/02/2024 8.7 - 10.5 HHCCT Glucose SerPl-mCnc 76.0 mg/dL Normal 07/02/2024 65 - 99 HHCCT Potassium SerPl-sCnc 3.6 mmol/L Normal 07/02/2024 3.4 - 5 .3 HHCCT Phosphate SerPl-mCnc 2.5 mg/dL Below low normal 07/02/2024 2 .7 - 4.5 HHCCT Magnesium SerPl-mCnc 1.9 mg/dL Normal 07/02/2024 1.6 - 2. 7 HHCCT POC Glucose 83.0 mg/dL Normal 07/02/2024 65 - 99 HHCCT POC Glucose 96.0 mg/dL Normal 07/02/2024 65 - 99 HHCCT POC Glucose 92.0 mg/dL Normal 07/02/2024 65 - 99 HHCCT POC Glucose 112.0 mg/dL Above high normal 07/01/2024 65 - 99 HHCCT POC Glucose 120.0 mg/dL Above high normal 07/01/2024 65 - 99 HHCCT POC Glucose 95.0 mg/dL Normal 07/01/2024 65 - 99 HHCCT Magnesium SerPl-mCnc 1.8 mg/dL Normal 07/01/2024 1.6 - 2. 7 HHCCT Potassium SerPl-sCnc 3.3 mmol/L Below low normal 07/01/2024 3.4 - 5.3 HHCCT Chloride SerPl-sCnc 105.0 mmol/L Normal 07/01/2024 98 - 1 07 HHCCT Calcium SerPl-mCnc 7.8 mg/dL Below low normal 07/01/2024 8.7 - 10.5 HHCCT Creat SerPl-mCnc 0.4 mg/dL Normal 07/01/2024 0.4 - 1.1 HH CCT BUN SerPl-mCnc 3.0 mg/dL Below low normal 07/01/2024 8 - 21 HHCCT Sodium SerPl-sCnc 137.0 mmol/L Normal 07/01/2024 136 - 14 5 HHCCT Anion Gap Bld-sCnc 7.0 Normal 07/01/2024 7 - 17 HHCCT Glucose SerPl-mCnc 92.0 mg/dL Normal 07/01/2024 65 - 99 HHCCT GFR/BSA.pred SerPlBld TZR-JBF-RrOVgh >90.0 Normal 07/01/2024 59 - HHCCT BUN/Creat SerPl 8.0 Ratio Below low normal 07/01/2024 10 - 2 5 HHCCT CO2 SerPl-sCnc 25.0 mmol/L Normal 07/01/2024 22 - 33 HH CCT Phosphate SerPl-mCnc 2.0 mg/dL Below low normal 07/01/2024 2 .7 - 4.5 HHCCT MCHC RBC Auto-mCnc 31.1 g/dL Normal 07/01/2024 30 - 36 HHCCT Hgb Bld-mCnc 8.2 g/dL Below low normal 07/01/2024 11.7 - 15.7 HHCCT WBC num Bld Auto 9.7 Thou/uL Normal 07/01/2024 4 - 11 HHCCT Platelet num Bld Auto 329.0 Thou/uL Normal 07/01/2024 150 - 450 HHCCT Hct VFr Bld Auto 26.4 % Below low normal 07/01/2024 35 - 47 HHCCT MCV RBC Auto 101.0 fL Above high normal 07/01/2024 80 - 100 HHCCT RDW RBC Auto-Rto 22.6 % Above high normal 07/01/2024 1 1.5 - 14.5 HHCCT RBC num Bld Auto 2.62 Mil/uL Below low normal 07/01/2024 4 - 5.4 HHCCT PMV Bld Auto 8.6 fL Normal 07/01/2024 7.5 - 12.5 HHCCT MCH RBC Qn Auto 31.3 pg Above high normal 07/01/2024 27 - 31 HHCCT POC Glucose 97.0 mg/dL Normal 07/01/2024 65 - 99 HHCCT LMWH PPP Steam [employer] Fireman-aCnc 0.34 IU/mL Normal 07/01/2024 HHCCT Anticoagulant IV HEPARIN, UNFRACTIONATED Normal 07/01/2024 HHCCT POC Glucose 105.0 mg/dL Above high normal 07/01/2024 65 - 99 HHCCT POC Glucose 106.0 mg/dL Above high normal 06/30/2024 65 - 99 HHCCT Potassium SerPl-sCnc 3.8 mmol/L Normal 06/30/2024 3.4 - 5 .3 HHCCT LMWH PPP Steam Boiler Fireman-aCnc 0.12 IU/mL Normal 06/30/2024 HHCCT Anticoagulant IV HEPARIN, UNFRACTIONATED Normal 06/30/2024 HHCCT Hgb Bld-mCnc 8.2 g/dL Below low normal 06/30/2024 11.7 - 15.7 HHCCT Hct VFr Bld Auto 26.6 % Below low normal 06/30/2024 35 - 47 HHCCT POC Glucose 116.0 mg/dL Above high normal 06/30/2024 65 - 99 HHCCT POC Glucose 115.0 mg/dL Above high normal 06/30/2024 65 - 99 HHCCT aPTT PPP 28.0 seconds Normal 06/30/2024 25 - 36 HHCCT Anticoagulant IV HEPARIN, UNFRACTIONATED Normal 06/30/2024 HHCCT Prothrombin time 12.8 seconds Normal 06/30/2024 10 - 13.5 HHCCT INR PPP 1.1 Normal 06/30/2024 HHCCT Anticoagulant IV HEPARIN, UNFRACTIONATED Normal 06/30/2024 HHCCT POC Glucose 111.0 mg/dL Above high normal 06/30/2024 65 - 99 HHCCT Phosphate SerPl-mCnc 2.1 mg/dL Below low normal 06/30/2024 2 .7 - 4.5 HHCCT Magnesium SerPl-mCnc 1.8 mg/dL Normal 06/30/2024 1.6 - 2. 7 HHCCT Glucose SerPl-mCnc 102.0 mg/dL Above high normal 06/30/2024 65 - 99 HHCCT Potassium SerPl-sCnc 3.2 mmol/L Below low normal 06/30/2024 3.4 - 5.3 HHCCT Creat SerPl-mCnc 0.5 mg/dL Normal 06/30/2024 0.4 - 1.1 HH CCT Chloride SerPl-sCnc 105.0 mmol/L Normal 06/30/2024 98 - 1 07 HHCCT CO2 SerPl-sCnc 26.0 mmol/L Normal 06/30/2024 22 - 33 HH CCT Anion Gap Bld-sCnc 6.0 Below low normal 06/30/2024 7 - 17 HHCCT Calcium SerPl-mCnc 8.0 mg/dL Below low normal 06/30/2024 8.7 - 10.5 HHCCT GFR/BSA.pred SerPlBld GOX-RYA-XrYKxw >90.0 Normal 06/30/2024 59 - HHCCT Sodium SerPl-sCnc 137.0 mmol/L Normal 06/30/2024 136 - 14 5 HHCCT BUN/Creat SerPl 10.0 Ratio Normal 06/30/2024 10 - 25 HH CCT BUN SerPl-mCnc 5.0 mg/dL Below low normal 06/30/2024 8 - 21 HHCCT MCHC RBC Auto-mCnc 30.9 g/dL Normal 06/30/2024 30 - 36 HHCCT RDW RBC Auto-Rto 23.7 % Above high normal 06/30/2024 1 1.5 - 14.5 HHCCT MCV RBC Auto 100.0 fL Normal 06/30/2024 80 - 100 HHCCT PMV Bld Auto 8.3 fL Normal 06/30/2024 7.5 - 12.5 HHCCT Hgb Bld-mCnc 8.0 g/dL Below low normal 06/30/2024 11.7 - 15.7 HHCCT MCH RBC Qn Auto 30.8 pg Normal 06/30/2024 27 - [address] Hct VFr Bld Auto 25.9 % Below low normal 06/30/2024 35 - 47 HHCCT Platelet num Bld Auto 323.0 Thou/uL Normal 06/30/2024 150 - 450 HHCCT RBC num Bld Auto 2.6 Mil/uL Below low normal 06/30/2024 4 - 5.4 HHCCT WBC num Bld Auto 11.2 Thou/uL Above high normal 06/30/2024 4 - 11 HHCCT POC Glucose 99.0 mg/dL Normal 06/30/2024 65 - 99 HHCCT POC Glucose 91.0 mg/dL Normal 06/30/2024 65 - 99 HHCCT POC Glucose 81.0 mg/dL Normal 06/29/2024 65 - 99 HHCCT Hgb Bld-mCnc 8.2 g/dL Below low normal 06/29/2024 11.7 - 15.7 HHCCT Hct VFr Bld Auto 25.9 % Below low normal 06/29/2024 35 - 47 HHCCT POC Glucose 96.0 mg/dL Normal 06/29/2024 65 - 99 HHCCT POC Glucose 145.0 mg/dL Above high normal 06/29/2024 65 - 99 HHCCT POC Glucose 69.0 mg/dL Normal 06/29/2024 65 - 99 HHCCT POC Glucose 87.0 mg/dL Normal 06/29/2024 65 - 99 HHCCT Magnesium SerPl-mCnc 1.9 mg/dL Normal 06/29/2024 1.6 - 2. 7 HHCCT Phosphate SerPl-mCnc 2.5 mg/dL Below low normal 06/29/2024 2 .7 - 4.5 HHCCT Chloride SerPl-sCnc 104.0 mmol/L Normal 06/29/2024 98 - 1 07 HHCCT Anion Gap Bld-sCnc 9.0 Normal 06/29/2024 7 - 17 HHCCT CO2 SerPl-sCnc 24.0 mmol/L Normal 06/29/2024 22 - 33 HH CCT Potassium SerPl-sCnc 3.8 mmol/L Normal 06/29/2024 3.4 - 5 .3 HHCCT Creat SerPl-mCnc 0.4 mg/dL Normal 06/29/2024 0.4 - 1.1 HH CCT Sodium SerPl-sCnc 137.0 mmol/L Normal 06/29/2024 136 - 14 5 HHCCT GFR/BSA.pred SerPlBld NPN-PUD-XvHDch >90.0 Normal 06/29/2024 59 - HHCCT Calcium SerPl-mCnc 7.9 mg/dL Below low normal 06/29/2024 8.7 - 10.5 HHCCT BUN SerPl-mCnc 6.0 mg/dL Below low normal 06/29/2024 8 - 21 HHCCT BUN/Creat SerPl 15.0 Ratio Normal 06/29/2024 10 - 25 HH CCT Glucose SerPl-mCnc 71.0 mg/dL Normal 06/29/2024 65 - 99 HHCCT RDW RBC Auto-Rto 23.9 % Above high normal 06/29/2024 1 1.5 - 14.5 HHCCT PMV Bld Auto 8.3 fL Normal 06/29/2024 7.5 - 12.5 HHCCT Hgb Bld-mCnc 9.2 g/dL Below low normal 06/29/2024 11.7 - 15.7 HHCCT MCHC RBC Auto-mCnc 31.8 g/dL Normal 06/29/2024 30 - 36 HHCCT MCH RBC Qn Auto 31.3 pg Above high normal 06/29/2024 27 - 31 HHCCT MCV RBC Auto 98.0 fL Normal 06/29/2024 80 - 100 HHCCT RBC num Bld Auto 2.94 Mil/uL Below low normal 06/29/2024 4 - 5.4 HHCCT Platelet num Bld Auto 335.0 Thou/uL Normal 06/29/2024 150 - 450 HHCCT WBC num Bld Auto 17.1 Thou/uL Above high normal 06/29/2024 4 - 11 HHCCT Hct VFr Bld Auto 28.9 % Below low normal 06/29/2024 35 - 47 HHCCT POC Glucose 78.0 mg/dL Normal 06/29/2024 65 - 99 HHCCT POC Glucose 73.0 mg/dL Normal 06/29/2024 65 - 99 HHCCT POC Glucose 92.0 mg/dL Normal 06/29/2024 65 - 99 HHCCT WBC num Bld Auto 13.9 Thou/uL Above high normal 06/29/2024 4 - 11 HHCCT RBC num Bld Auto 2.6 Mil/uL Below low normal 06/29/2024 4 - 5.4 HHCCT MCHC RBC Auto-mCnc 31.3 g/dL Normal 06/29/2024 30 - 36 HHCCT Hct VFr Bld Auto 25.2 % Below low normal 06/29/2024 35 - 47 HHCCT RDW RBC Auto-Rto 23.9 % Above high normal 06/29/2024 1 1.5 - 14.5 HHCCT Platelet num Bld Auto 314.0 Thou/uL Normal 06/29/2024 150 - 450 HHCCT PMV Bld Auto 8.6 fL Normal 06/29/2024 7.5 - 12.5 HHCCT MCH RBC Qn Auto 30.4 pg Normal 06/29/2024 27 - [address] MCV RBC Auto 97.0 fL Normal 06/29/2024 80 - 100 HHCCT Hgb Bld-mCnc 7.9 g/dL Below low normal 06/29/2024 11.7 - 15.7 HHCCT POC Glucose 81.0 mg/dL Normal 06/28/2024 65 - 99 HHCCT POC Glucose 82.0 mg/dL Normal 06/28/2024 65 - 99 HHCCT MCH RBC Qn Auto 31.5 pg Above high normal 06/28/2024 27 - 31 HHCCT WBC num Bld Auto 14.2 Thou/uL Above high normal 06/28/2024 4 - 11 HHCCT Hct VFr Bld Auto 24.6 % Below low normal 06/28/2024 35 - 47 HHCCT MCHC RBC Auto-mCnc 32.5 g/dL Normal 06/28/2024 30 - 36 HHCCT Hgb Bld-mCnc 8.0 g/dL Below low normal 06/28/2024 11.7 - 15.7 HHCCT RBC num Bld Auto 2.54 Mil/uL Below low normal 06/28/2024 4 - 5.4 HHCCT PMV Bld Auto 8.7 fL Normal 06/28/2024 7.5 - 12.5 HHCCT MCV RBC Auto 97.0 fL Normal 06/28/2024 80 - 100 HHCCT Platelet num Bld Auto 270.0 Thou/uL Normal 06/28/2024 150 - 450 HHCCT RDW RBC Auto-Rto 23.7 % Above high normal 06/28/2024 1 1.5 - 14.5 HHCCT POC Glucose 98.0 mg/dL Normal 06/28/2024 65 - 99 HHCCT Phosphate SerPl-mCnc 2.3 mg/dL Below low normal 06/28/2024 2 .7 - 4.5 HHCCT CO2 SerPl-sCnc 26.0 mmol/L Normal 06/28/2024 22 - 33 HH CCT Creat SerPl-mCnc 0.5 mg/dL Normal 06/28/2024 0.4 - 1.1 HH CCT Glucose SerPl-mCnc 90.0 mg/dL Normal 06/28/2024 65 - 99 HHCCT Calcium SerPl-mCnc 7.7 mg/dL Below low normal 06/28/2024 8.7 - 10.5 HHCCT Potassium SerPl-sCnc 3.7 mmol/L Normal 06/28/2024 3.4 - 5 .3 HHCCT Sodium SerPl-sCnc 135.0 mmol/L Below low normal 06/28/2024 1 36 - 145 HHCCT Anion Gap Bld-sCnc 6.0 Below low normal 06/28/2024 7 - 17 HHCCT BUN SerPl-mCnc 8.0 mg/dL Normal 06/28/2024 8 - 21 HHCC T Chloride SerPl-sCnc 103.0 mmol/L Normal 06/28/2024 98 - 1 07 HHCCT GFR/BSA.pred SerPlBld TJV-CGQ-FtWOug >90.0 Normal 06/28/2024 59 - HHCCT BUN/Creat SerPl 16.0 Ratio Normal 06/28/2024 10 - 25 HH CCT Magnesium SerPl-mCnc 1.8 mg/dL Normal 06/28/2024 1.6 - 2. 7 HHCCT MCHC RBC Auto-mCnc 30.4 g/dL Normal 06/28/2024 30 - 36 HHCCT MCH RBC Qn Auto 30.5 pg Normal 06/28/2024 27 - [address] PMV Bld Auto 8.6 fL Normal 06/28/2024 7.5 - 12.5 HHCCT MCV RBC Auto 100.0 fL Normal 06/28/2024 80 - 100 HHCCT WBC num Bld Auto 13.9 Thou/uL Above high normal 06/28/2024 4 - 11 HHCCT Hgb Bld-mCnc 6.8 g/dL Below low normal 06/28/2024 11.7 - 15.7 HHCCT RDW RBC Auto-Rto 25.6 % Above high normal 06/28/2024 1 1.5 - 14.5 HHCCT Hct VFr Bld Auto 22.4 % Below low normal 06/28/2024 35 - 47 HHCCT RBC num Bld Auto 2.23 Mil/uL Below low normal 06/28/2024 4 - 5.4 HHCCT Platelet num Bld Auto 295.0 Thou/uL Normal 06/28/2024 150 - 450 HHCCT POC Glucose 104.0 mg/dL Above high normal 06/28/2024 65 - 99 HHCCT MCV RBC Auto 100.0 fL Normal 06/28/2024 80 - 100 HHCCT MCH RBC Qn Auto 30.9 pg Normal 06/28/2024 27 - [address] PMV Bld Auto 8.8 fL Normal 06/28/2024 7.5 - 12.5 HHCCT RDW RBC Auto-Rto 25.7 % Above high normal 06/28/2024 1 1.5 - 14.5 HHCCT Platelet num Bld Auto 316.0 Thou/uL Normal 06/28/2024 150 - 450 HHCCT RBC num Bld Auto 2.23 Mil/uL Below low normal 06/28/2024 4 - 5.4 HHCCT WBC num Bld Auto 13.4 Thou/uL Above high normal 06/28/2024 4 - 11 HHCCT Hct VFr Bld Auto 22.2 % Below low normal 06/28/2024 35 - 47 HHCCT Hgb Bld-mCnc 6.9 g/dL Below low normal 06/28/2024 11.7 - 15.7 HHCCT MCHC RBC Auto-mCnc 31.1 g/dL Normal 06/28/2024 30 - 36 HHCCT POC Glucose 121.0 mg/dL Above high normal 06/28/2024 65 - 99 HHCCT POC Glucose 114.0 mg/dL Above high normal 06/28/2024 65 - 99 HHCCT Hgb Bld-mCnc 7.2 g/dL Below low normal 06/28/2024 11.7 - 15.7 HHCCT MCH RBC Qn Auto 31.6 pg Above high normal 06/28/2024 27 - 31 HHCCT MCV RBC Auto 99.0 fL Normal 06/28/2024 80 - 100 HHCCT Platelet num Bld Auto 320.0 Thou/uL Normal 06/28/2024 150 - 450 HHCCT MCHC RBC Auto-mCnc 31.9 g/dL Normal 06/28/2024 30 - 36 HHCCT PMV Bld Auto 8.6 fL Normal 06/28/2024 7.5 - 12.5 HHCCT RBC num Bld Auto 2.28 Mil/uL Below low normal 06/28/2024 4 - 5.4 HHCCT Hct VFr Bld Auto 22.6 % Below low normal 06/28/2024 35 - 47 HHCCT RDW RBC Auto-Rto 25.4 % Above high normal 06/28/2024 1 1.5 - 14.5 HHCCT WBC num Bld Auto 16.8 Thou/uL Above high normal 06/28/2024 4 - 11 HHCCT RDW RBC Auto-Rto 25.0 % Above high normal 06/27/2024 1 1.5 - 14.5 HHCCT MCHC RBC Auto-mCnc 30.9 g/dL Normal 06/27/2024 30 - 36 HHCCT PMV Bld Auto 8.6 fL Normal 06/27/2024 7.5 - 12.5 HHCCT MCV RBC Auto 100.0 fL Normal 06/27/2024 80 - 100 HHCCT Hct VFr Bld Auto 23.6 % Below low normal 06/27/2024 35 - 47 HHCCT MCH RBC Qn Auto 30.8 pg Normal 06/27/2024 27 - [address] Hgb Bld-mCnc 7.3 g/dL Below low normal 06/27/2024 11.7 - 15.7 HHCCT Platelet num Bld Auto 334.0 Thou/uL Normal 06/27/2024 150 - 450 HHCCT RBC num Bld Auto 2.37 Mil/uL Below low normal 06/27/2024 4 - 5.4 HHCCT WBC num Bld Auto 15.8 Thou/uL Above high normal 06/27/2024 4 - 11 HHCCT POC Glucose 124.0 mg/dL Above high normal 06/27/2024 65 - 99 HHCCT POC Glucose 121.0 mg/dL Above high normal 06/27/2024 65 - 99 HHCCT POC Glucose 122.0 mg/dL Above high normal 06/27/2024 65 - 99 HHCCT WBC num Bld Auto 18.2 Thou/uL Above high normal 06/27/2024 4 - 11 HHCCT MCHC RBC Auto-mCnc 30.0 g/dL Normal 06/27/2024 30 - 36 HHCCT Hct VFr Bld Auto 22.3 % Below low normal 06/27/2024 35 - 47 HHCCT MCV RBC Auto 107.0 fL Above high normal 06/27/2024 80 - 100 HHCCT RDW RBC Auto-Rto 22.3 % Above high normal 06/27/2024 1 1.5 - 14.5 HHCCT PMV Bld Auto 9.1 fL Normal 06/27/2024 7.5 - 12.5 HHCCT Platelet num Bld Auto 362.0 Thou/uL Normal 06/27/2024 150 - 450 HHCCT MCH RBC Qn Auto 32.1 pg Above high normal 06/27/2024 27 - 31 HHCCT RBC num Bld Auto 2.09 Mil/uL Below low normal 06/27/2024 4 - 5.4 HHCCT Hgb Bld-mCnc 6.7 g/dL Below low normal 06/27/2024 11.7 - 15.7 HHCCT Chloride SerPl-sCnc 101.0 mmol/L Normal 06/27/2024 98 - 1 07 HHCCT Glucose SerPl-mCnc 112.0 mg/dL Above high normal 06/27/2024 65 - 99 HHCCT Sodium SerPl-sCnc 135.0 mmol/L Below low normal 06/27/2024 1 36 - 145 HHCCT Calcium SerPl-mCnc 7.9 mg/dL Below low normal 06/27/2024 8.7 - 10.5 HHCCT CO2 SerPl-sCnc 26.0 mmol/L Normal 06/27/2024 22 - 33 HH CCT Creat SerPl-mCnc 0.5 mg/dL Normal 06/27/2024 0.4 - 1.1 HH CCT GFR/BSA.pred SerPlBld VJG-PFD-TfRXbk >90.0 Normal 06/27/2024 59 - HHCCT BUN SerPl-mCnc 11.0 mg/dL Normal 06/27/2024 8 - [address] Potassium SerPl-sCnc 3.9 mmol/L Normal 06/27/2024 3.4 - 5 .3 HHCCT BUN/Creat SerPl 22.0 Ratio Normal 06/27/2024 10 - 25 HH CCT Anion Gap Bld-sCnc 8.0 Normal 06/27/2024 7 - 17 HHCCT Magnesium SerPl-mCnc 1.9 mg/dL Normal 06/27/2024 1.6 - 2. 7 HHCCT Albumin/Glob SerPl 0.8 Ratio Below low normal 06/27/2024 1 - 3 HHCCT Bilirub Direct SerPl-mCnc 0.2 mg/dL Normal 06/27/2024 0 - 0.2 HHCCT Prot SerPl-mCnc 5.5 g/dL Below low normal 06/27/2024 6.3 - 8.3 HHCCT ALP SerPl-cCnc 57.0 U/L Normal 06/27/2024 32 - 122 HHCC T Globulin Ser Calc-mCnc 3.1 g/dL Normal 06/27/2024 1.5 - 3.9 HHCCT Bilirub SerPl-mCnc 0.3 mg/dL Normal 06/27/2024 0.2 - 1 HHCCT ALT SerPl-cCnc 16.0 U/L Normal 06/27/2024 10 - 50 HHCC T Albumin SerPl-mCnc 2.4 g/dL Below low normal 06/27/2024 3.4 - 4.8 HHCCT AST SerPl-cCnc 18.0 U/L Normal 06/27/2024 10 - 50 HHCC T Phosphate SerPl-mCnc 3.2 mg/dL Normal 06/27/2024 2.7 - 4. 5 HHCCT POC Glucose 145.0 mg/dL Above high normal 06/27/2024 65 - 99 HHCCT POC Glucose 146.0 mg/dL Above high normal 06/27/2024 65 - 99 HHCCT Hgb Bld-mCnc 7.6 g/dL Below low normal 06/27/2024 11.7 - 15.7 HHCCT RBC num Bld Auto 2.3 Mil/uL Below low normal 06/27/2024 4 - 5.4 HHCCT PMV Bld Auto 9.1 fL Normal 06/27/2024 7.5 - 12.5 HHCCT Platelet num Bld Auto 347.0 Thou/uL Normal 06/27/2024 150 - 450 HHCCT Hct VFr Bld Auto 24.1 % Below low normal 06/27/2024 35 - 47 HHCCT MCH RBC Qn Auto 33.0 pg Above high normal 06/27/2024 27 - 31 HHCCT WBC num Bld Auto 18.1 Thou/uL Above high normal 06/27/2024 4 - 11 HHCCT RDW RBC Auto-Rto 22.5 % Above high normal 06/27/2024 1 1.5 - 14.5 HHCCT MCV RBC Auto 105.0 fL Above high normal 06/27/2024 80 - 100 HHCCT MCHC RBC Auto-mCnc 31.5 g/dL Normal 06/27/2024 30 - 36 HHCCT POC Glucose 123.0 mg/dL Above high normal 06/27/2024 65 - 99 HHCCT POC Glucose 119.0 mg/dL Above high normal 06/26/2024 65 - 99 HHCCT POC Glucose 114.0 mg/dL Above high normal 06/26/2024 65 - 99 HHCCT POC Glucose 108.0 mg/dL Above high normal 06/26/2024 65 - 99 HHCCT Normocytes Present Normal 06/26/2024 HHCCT Normochromic Bld Ql Smear Present Normal 06/26/2024 HHCCT Monocyte, Absolute 0.7 Thou/uL Normal 06/26/2024 0.2 - 1. 5 HHCCT Segmented Neutrophil 86.0 % Normal 06/26/2024 HHCCT Lymphocytes/leuk NFr Bld Auto 4.0 % Normal 06/26/2024 HHCCT Neuts Band num Bld Manual 1.0 % Normal 06/26/2024 HHCCT Eosinophil num Bld Auto 0.2 Thou/uL Normal 06/26/2024 0 - 0.7 HHCCT Neutrophils num Bld Auto 14.2 Thou/uL Above high normal 06/26/2024 2 - 7.5 HHCCT Eosinophil 1.0 % Normal 06/26/2024 HHCCT Myelocytes/leuk NFr Bld Manual 3.0 % Normal 06/26/2024 HHCCT Basophils num Bld Auto 0.2 Thou/uL Normal 06/26/2024 0 - 0.2 HHCCT Macrocytes Bld Ql Smear Occasional Normal 06/26/2024 HHCCT Lymphocytes num Bld Auto 0.7 Thou/uL Below low normal 06/26/2024 1.5 - 4.5 HHCCT Myelocytes num Bld Manual 0.5 Thou/uL Above high normal 06/26/2024 - HHCCT Monocytes/leuk NFr Bld Auto 4.0 % Normal 06/26/2024 HHCCT Basophils/leuk NFr Bld Auto 1.0 % Normal 06/26/2024 HHCCT MCH RBC Qn Auto 33.2 pg Above high normal 06/26/2024 27 - 31 HHCCT WBC num Bld Auto 16.3 Thou/uL Above high normal 06/26/2024 4 - 11 HHCCT Hct VFr Bld Auto 25.1 % Below low normal 06/26/2024 35 - 47 HHCCT Platelet num Bld Auto 312.0 Thou/uL Normal 06/26/2024 150 - 450 HHCCT MCV RBC Auto 108.0 fL Above high normal 06/26/2024 80 - 100 HHCCT MCHC RBC Auto-mCnc 30.7 g/dL Normal 06/26/2024 30 - 36 HHCCT RDW RBC Auto-Rto 23.4 % Above high normal 06/26/2024 1 1.5 - 14.5 HHCCT RBC num Bld Auto 2.32 Mil/uL Below low normal 06/26/2024 4 - 5.4 HHCCT PMV Bld Auto 9.3 fL Normal 06/26/2024 7.5 - 12.5 HHCCT Hgb Bld-mCnc 7.7 g/dL Below low normal 06/26/2024 11.7 - 15.7 HHCCT Phosphate SerPl-mCnc 3.7 mg/dL Normal 06/26/2024 2.7 - 4. 5 HHCCT Magnesium SerPl-mCnc 1.9 mg/dL Normal 06/26/2024 1.6 - 2. 7 HHCCT Potassium SerPl-sCnc 3.9 mmol/L Normal 06/26/2024 3.4 - 5 .3 HHCCT Creat SerPl-mCnc 0.5 mg/dL Normal 06/26/2024 0.4 - 1.1 HH CCT Sodium SerPl-sCnc 137.0 mmol/L Normal 06/26/2024 136 - 14 5 HHCCT Anion Gap Bld-sCnc 9.0 Normal 06/26/2024 7 - 17 HHCCT Chloride SerPl-sCnc 101.0 mmol/L Normal 06/26/2024 98 - 1 07 HHCCT GFR/BSA.pred SerPlBld WKK-OMO-IcXSff >90.0 Normal 06/26/2024 59 - HHCCT BUN/Creat SerPl 18.0 Ratio Normal 06/26/2024 10 - 25 HH CCT Glucose SerPl-mCnc 88.0 mg/dL Normal 06/26/2024 65 - 99 HHCCT BUN SerPl-mCnc 9.0 mg/dL Normal 06/26/2024 8 - 21 HHCC T CO2 SerPl-sCnc 27.0 mmol/L Normal 06/26/2024 22 - 33 HH CCT Calcium SerPl-mCnc 8.3 mg/dL Below low normal 06/26/2024 8.7 - 10.5 HHCCT POC Glucose 104.0 mg/dL Above high normal 06/26/2024 65 - 99 HHCCT POC Glucose 115.0 mg/dL Above high normal 06/26/2024 65 - 99 HHCCT POC Glucose 112.0 mg/dL Above high normal 06/26/2024 65 - 99 HHCCT POC Glucose 105.0 mg/dL Above high normal 06/25/2024 65 - 99 HHCCT POC Glucose 109.0 mg/dL Above high normal 06/25/2024 65 - 99 HHCCT GFR/BSA.pred SerPlBld PCR-VHX-FfOVhg >90.0 Normal 06/25/2024 59 - HHCCT Glucose SerPl-mCnc 96.0 mg/dL Normal 06/25/2024 65 - 99 HHCCT CO2 SerPl-sCnc 29.0 mmol/L Normal 06/25/2024 22 - 33 HH CCT BUN SerPl-mCnc 11.0 mg/dL Normal 06/25/2024 8 - [address] Sodium SerPl-sCnc 137.0 mmol/L Normal 06/25/2024 136 - 14 5 HHCCT Anion Gap Bld-sCnc 6.0 Below low normal 06/25/2024 7 - 17 HHCCT Creat SerPl-mCnc 0.5 mg/dL Normal 06/25/2024 0.4 - 1.1 HH CCT Chloride SerPl-sCnc 102.0 mmol/L Normal 06/25/2024 98 - 1 07 HHCCT Calcium SerPl-mCnc 7.9 mg/dL Below low normal 06/25/2024 8.7 - 10.5 HHCCT BUN/Creat SerPl 22.0 Ratio Normal 06/25/2024 10 - 25 HH CCT Potassium SerPl-sCnc 3.9 mmol/L Normal 06/25/2024 3.4 - 5 .3 HHCCT Magnesium SerPl-mCnc 1.9 mg/dL Normal 06/25/2024 1.6 - 2. 7 HHCCT Phosphate SerPl-mCnc 3.5 mg/dL Normal 06/25/2024 2.7 - 4. 5 HHCCT Hct VFr Bld Auto 25.1 % Below low normal 06/25/2024 35 - 47 HHCCT MCV RBC Auto 107.0 fL Above high normal 06/25/2024 80 - 100 HHCCT WBC num Bld Auto 19.2 Thou/uL Above high normal 06/25/2024 4 - 11 HHCCT nRBC num Bld Auto 0.03 Thou/uL Above high normal 06/25/2024 0 - 0.02 HHCCT RBC num Bld Auto 2.35 Mil/uL Below low normal 06/25/2024 4 - 5.4 HHCCT RDW RBC Auto-Rto 23.4 % Above high normal 06/25/2024 1 1.5 - 14.5 HHCCT PMV Bld Auto 9.2 fL Normal 06/25/2024 7.5 - 12.5 HHCCT nRBC/100 WBC Bld Auto-Rto 0.2 /100 WBC Above high normal 06/25/2024 0 - 0.1 HHCCT Platelet num Bld Auto 280.0 Thou/uL Normal 06/25/2024 150 - 450 HHCCT MCHC RBC Auto-mCnc 31.1 g/dL Normal 06/25/2024 30 - 36 HHCCT Hgb Bld-mCnc 7.8 g/dL Below low normal 06/25/2024 11.7 - 15.7 HHCCT MCH RBC Qn Auto 33.2 pg Above high normal 06/25/2024 27 - 31 HHCCT POC Glucose 114.0 mg/dL Above high normal 06/25/2024 65 - 99 HHCCT POC Glucose 124.0 mg/dL Above high normal 06/25/2024 65 - 99 HHCCT POC Glucose 175.0 mg/dL Above high normal 06/25/2024 65 - 99 HHCCT POC Glucose 164.0 mg/dL Above high normal 06/24/2024 65 - 99 HHCCT POC Glucose 164.0 mg/dL Above high normal 06/24/2024 65 - 99 HHCCT POC Glucose 153.0 mg/dL Above high normal 06/24/2024 65 - 99 HHCCT LMWH PPP Steam Boiler Fireman-aCnc 0.35 IU/mL Normal 06/24/2024 HHCCT Anticoagulant IV HEPARIN, UNFRACTIONATED Normal 06/24/2024 HHCCT Phosphate SerPl-mCnc 2.6 mg/dL Below low normal 06/24/2024 2 .7 - 4.5 HHCCT Magnesium SerPl-mCnc 2.0 mg/dL Normal 06/24/2024 1.6 - 2. 7 HHCCT Sodium SerPl-sCnc 134.0 mmol/L Below low normal 06/24/2024 1 36 - 145 HHCCT GFR/BSA.pred SerPlBld GXM-TCA-FsQXee >90.0 Normal 06/24/2024 59 - HHCCT Chloride SerPl-sCnc 99.0 mmol/L Normal 06/24/2024 98 - 10 7 HHCCT BUN/Creat SerPl 24.0 Ratio Normal 06/24/2024 10 - 25 HH CCT Potassium SerPl-sCnc 4.0 mmol/L Normal 06/24/2024 3.4 - 5 .3 HHCCT Glucose SerPl-mCnc 139.0 mg/dL Above high normal 06/24/2024 65 - 99 HHCCT CO2 SerPl-sCnc 27.0 mmol/L Normal 06/24/2024 22 - 33 HH CCT BUN SerPl-mCnc 12.0 mg/dL Normal 06/24/2024 8 - [address] Creat SerPl-mCnc 0.5 mg/dL Normal 06/24/2024 0.4 - 1.1 HH CCT Calcium SerPl-mCnc 7.8 mg/dL Below low normal 06/24/2024 8.7 - 10.5 HHCCT Anion Gap Bld-sCnc 8.0 Normal 06/24/2024 7 - 17 HHCCT Platelet num Bld Auto 266.0 Thou/uL Normal 06/24/2024 150 - 450 HHCCT MCV RBC Auto 104.0 fL Above high normal 06/24/2024 80 - 100 HHCCT MCH RBC Qn Auto 32.1 pg Above high normal 06/24/2024 27 - 31 HHCCT nRBC/100 WBC Bld Auto-Rto 0.3 /100 WBC Above high normal 06/24/2024 0 - 0.1 HHCCT RBC num Bld Auto 2.49 Mil/uL Below low normal 06/24/2024 4 - 5.4 HHCCT Hct VFr Bld Auto 26.0 % Below low normal 06/24/2024 35 - 47 HHCCT PMV Bld Auto 9.4 fL Normal 06/24/2024 7.5 - 12.5 HHCCT Hgb Bld-mCnc 8.0 g/dL Below low normal 06/24/2024 11.7 - 15.7 HHCCT RDW RBC Auto-Rto 22.5 % Above high normal 06/24/2024 1 1.5 - 14.5 HHCCT MCHC RBC Auto-mCnc 30.8 g/dL Normal 06/24/2024 30 - 36 HHCCT nRBC num Bld Auto 0.06 Thou/uL Above high normal 06/24/2024 0 - 0.02 HHCCT WBC num Bld Auto 22.2 Thou/uL Above high normal 06/24/2024 4 - 11 HHCCT POC Glucose 156.0 mg/dL Above high normal 06/24/2024 65 - 99 HHCCT POC Glucose 165.0 mg/dL Above high normal 06/24/2024 65 - 99 HHCCT POC Glucose 161.0 mg/dL Above high normal 06/24/2024 65 - 99 HHCCT POC Glucose 160.0 mg/dL Above high normal 06/23/2024 65 - 99 HHCCT POC Glucose 158.0 mg/dL Above high normal 06/23/2024 65 - 99 CCT POC Glucose 156.0 mg/dL Above high normal 06/23/2024 65 - 99 HHCCT Segmented Neutrophil 90.0 % Normal 06/23/2024 CCT Myelocytes num Bld Manual 0.2 Thou/uL Above high normal 06/23/2024 - CCT Macrocytes Bld Ql Smear Occasional Normal 06/23/2024 CCT Eosinophil 1.0 % Normal 06/23/2024 HHCCT Eosinophil num Bld Auto 0.2 Thou/uL Normal 06/23/2024 0 - 0.7 HHCCT Myelocytes/leuk NFr Bld Manual 1.0 % Normal 06/23/2024 CCT Neutrophils num Bld Auto 21.8 Thou/uL Above high normal 06/23/2024 2 - 7.5 HHCCT Normochromic Bld Ql Smear Present Normal 06/23/2024 H[facility]CT Monocyte, Absolute 1.2 Thou/uL Normal 06/23/2024 0.2 - 1. 5 HHCCT Lymphocytes/leuk NFr Bld Auto 3.0 % Normal 06/23/2024 HHCCT Lymphocytes num Bld Auto 0.7 Thou/uL Below low normal 06/23/2024 1.5 - 4.5 HHCCT Polychromasia Bld Ql Smear Occasional Normal 06/23/2024 HHCCT Normocytes Present Normal 06/23/2024 HHCCT Aragon Cells Bld Ql Smear Present Normal 06/23/2024 CCT Monocytes/leuk NFr Bld Auto 5.0 % Normal 06/23/2024 HHCCT nRBC/100 WBC Bld Auto-Rto 0.2 /100 WBC Above high normal 06/23/2024 0 - 0.1 HHCCT MCH RBC Qn Auto 31.9 pg Above high normal 06/23/2024 27 - 31 HHCCT PMV Bld Auto 9.7 fL Normal 06/23/2024 7.5 - 12.5 HHCCT Hct VFr Bld Auto 27.1 % Below low normal 06/23/2024 35 - 47 HHCCT Platelet num Bld Auto 228.0 Thou/uL Normal 06/23/2024 150 - 450 HHCCT WBC num Bld Auto 24.2 Thou/uL Above high normal 06/23/2024 4 - 11 HHCCT Hgb Bld-mCnc 8.3 g/dL Below low normal 06/23/2024 11.7 - 15.7 HHCCT MCHC RBC Auto-mCnc 30.6 g/dL Normal 06/23/2024 30 - 36 HHCCT nRBC num Bld Auto 0.05 Thou/uL Above high normal 06/23/2024 0 - 0.02 HHCCT RDW RBC Auto-Rto 22.0 % Above high normal 06/23/2024 1 1.5 - 14.5 HHCCT MCV RBC Auto 104.0 fL Above high normal 06/23/2024 80 - 100 HHCCT RBC num Bld Auto 2.6 Mil/uL Below low normal 06/23/2024 4 - 5.4 HHCCT Transferrin SerPl-mCnc 123.0 mg/dL Below low normal 06/23/2024 200 - 360 HHCCT Albumin SerPl-mCnc 2.2 g/dL Below low normal 06/23/2024 3.4 - 4.8 HHCCT AST SerPl-cCnc 18.0 U/L Normal 06/23/2024 10 - 50 [facility] T Globulin Ser Calc-mCnc 3.4 g/dL Normal 06/23/2024 1.5 - 3.9 HHCCT Bilirub Direct SerPl-mCnc 0.1 mg/dL Normal 06/23/2024 0 - 0.2 HHCCT Bilirub SerPl-mCnc 0.3 mg/dL Normal 06/23/2024 0.2 - 1 HHCCT ALT SerPl-cCnc 17.0 U/L Normal 06/23/2024 10 - 50 [facility] T Prot SerPl-mCnc 5.6 g/dL Below low normal 06/23/2024 6.3 - 8.3 HHCCT ALP SerPl-cCnc 71.0 U/L Normal 06/23/2024 32 - 122 [facility] T Albumin/Glob SerPl 0.6 Ratio Below low normal 06/23/2024 1 - 3 HHCCT Trigl SerPl-mCnc 204.0 mg/dL Above high normal 06/23/2024 - 150 HHCCT Magnesium SerPl-mCnc 2.1 mg/dL Normal 06/23/2024 1.6 - 2. 7 HHCCT Phosphate SerPl-mCnc 2.5 mg/dL Below low normal 06/23/2024 2 .7 - 4.5 HHCCT Chloride SerPl-sCnc 97.0 mmol/L Below low normal 06/23/2024 98 - 107 HHCCT Glucose SerPl-mCnc 107.0 mg/dL Above high normal 06/23/2024 65 - 99 HHCCT Sodium SerPl-sCnc 133.0 mmol/L Below low normal 06/23/2024 1 36 - 145 HHCCT Potassium SerPl-sCnc 3.6 mmol/L Normal 06/23/2024 3.4 - 5 .3 HHCCT GFR/BSA.pred SerPlBld PQJ-ZHK-MjPSmt >90.0 Normal 06/23/2024 59 - HHCCT CO2 SerPl-sCnc 26.0 mmol/L Normal 06/23/2024 22 - 33 HH CCT BUN SerPl-mCnc 11.0 mg/dL Normal 06/23/2024 8 - [address] Creat SerPl-mCnc 0.4 mg/dL Normal 06/23/2024 0.4 - 1.1 HH CCT BUN/Creat SerPl 28.0 Ratio Above high normal 06/23/2024 10 - 25 HHCCT Calcium SerPl-mCnc 8.0 mg/dL Below low normal 06/23/2024 8.7 - 10.5 HHCCT Anion Gap Bld-sCnc 10.0 Normal 06/23/2024 7 - 17 HHCCT Prealb SerPl-mCnc 14.0 mg/dL Below low normal 06/23/2024 20 - 40 HHCCT LMWH PPP [employer] Fireman-aCnc 0.3 IU/mL Normal 06/23/2024 HHCCT Anticoagulant IV HEPARIN, UNFRACTIONATED Normal 06/23/2024 HHCCT POC Glucose 154.0 mg/dL Above high normal 06/23/2024 65 - 99 HHCCT POC Glucose 133.0 mg/dL Above high normal 06/23/2024 65 - 99 HHCCT POC Glucose 131.0 mg/dL Above high normal 06/23/2024 65 - 99 HHCCT POC Glucose 128.0 mg/dL Above high normal 06/22/2024 65 - 99 HHCCT POC Glucose 132.0 mg/dL Above high normal 06/22/2024 65 - 99 HHCCT Magnesium SerPl-mCnc 2.0 mg/dL Normal 06/22/2024 1.6 - 2. 7 HHCCT Phosphate SerPl-mCnc 2.9 mg/dL Normal 06/22/2024 2.7 - 4. 5 HHCCT BUN/Creat SerPl 25.0 Ratio Normal 06/22/2024 10 - 25 HH CCT Sodium SerPl-sCnc 132.0 mmol/L Below low normal 06/22/2024 1 36 - 145 HHCCT Calcium SerPl-mCnc 8.0 mg/dL Below low normal 06/22/2024 8.7 - 10.5 HHCCT Potassium SerPl-sCnc 3.9 mmol/L Normal 06/22/2024 3.4 - 5 .3 HHCCT Glucose SerPl-mCnc 114.0 mg/dL Above high normal 06/22/2024 65 - 99 HHCCT GFR/BSA.pred SerPlBld MMV-MFI-FpVAwh >90.0 Normal 06/22/2024 59 - HHCCT Chloride SerPl-sCnc 98.0 mmol/L Normal 06/22/2024 98 - 10 7 HHCCT Creat SerPl-mCnc 0.4 mg/dL Normal 06/22/2024 0.4 - 1.1 HH CCT CO2 SerPl-sCnc 23.0 mmol/L Normal 06/22/2024 22 - 33 HH CCT BUN SerPl-mCnc 10.0 mg/dL Normal 06/22/2024 8 - [address] Anion Gap Bld-sCnc 11.0 Normal 06/22/2024 7 - 17 HHCCT Ca-I SerPl-mCnc 1.1 mmol/L Below low normal 06/22/2024 1.1 7 - 1.33 HHCCT POC Glucose 149.0 mg/dL Above high normal 06/22/2024 65 - 99 HHCCT POC Glucose 165.0 mg/dL Above high normal 06/22/2024 65 - 99 HHCCT POC Glucose 171.0 mg/dL Above high normal 06/22/2024 65 - 99 HHCCT POC Glucose 155.0 mg/dL Above high normal 06/22/2024 65 - 99 HHCCT Ca-I SerPl-mCnc 1.13 mmol/L Below low normal 06/22/2024 1. 17 - 1.33 HHCCT Phosphate SerPl-mCnc 2.7 mg/dL Normal 06/22/2024 2.7 - 4. 5 HHCCT Calcium SerPl-mCnc 8.1 mg/dL Below low normal 06/22/2024 8.7 - 10.5 HHCCT BUN/Creat SerPl 30.0 Ratio Above high normal 06/22/2024 10 - 25 HHCCT Anion Gap Bld-sCnc 8.0 Normal 06/22/2024 7 - 17 HHCCT Potassium SerPl-sCnc 3.7 mmol/L Normal 06/22/2024 3.4 - 5 .3 HHCCT GFR/BSA.pred SerPlBld HMN-[id number]-[id number] >90.0 Normal 06/22/2024 59 - HHCCT Glucose SerPl-mCnc 133.0 mg/dL Above high normal 06/22/2024 65 - 99 HHCCT BUN SerPl-mCnc 9.0 mg/dL Normal 06/22/2024 8 - 21 HH[facility] T Sodium SerPl-sCnc 130.0 mmol/L Below low normal 06/22/2024 1 36 - 145 HHCCT Creat SerPl-mCnc 0.3 mg/dL Below low normal 06/22/2024 0.4 - 1.1 HHCCT CO2 SerPl-sCnc 26.0 mmol/L Normal 06/22/2024 22 - 33 HH CCT Chloride SerPl-sCnc 96.0 mmol/L Below low normal 06/22/2024 98 - 107 HHCCT Magnesium SerPl-mCnc 1.9 mg/dL Normal 06/22/2024 1.6 - 2. 7 HHCCT nRBC num Bld Auto 0.02 Thou/uL Normal 06/22/2024 0 - 0.02 HHCCT MCH RBC Qn Auto 32.0 pg Above high normal 06/22/2024 27 - 31 HHCCT Hgb Bld-mCnc 8.3 g/dL Below low normal 06/22/2024 11.7 - 15.7 HHCCT Platelet num Bld Auto 187.0 Thou/uL Normal 06/22/2024 150 - 450 HHCCT nRBC/100 WBC Bld Auto-Rto 0.1 /100 WBC Normal 06/22/2024 0 - 0.1 HHCCT MCHC RBC Auto-mCnc 31.1 g/dL Normal 06/22/2024 30 - 36 HHCCT RDW RBC Auto-Rto 22.1 % Above high normal 06/22/2024 1 1.5 - 14.5 HHCCT WBC num Bld Auto 22.8 Thou/uL Above high normal 06/22/2024 4 - 11 HHCCT PMV Bld Auto 9.3 fL Normal 06/22/2024 7.5 - 12.5 HHCCT RBC num Bld Auto 2.59 Mil/uL Below low normal 06/22/2024 4 - 5.4 HHCCT Hct VFr Bld Auto 26.7 % Below low normal 06/22/2024 35 - 47 HHCCT MCV RBC Auto 103.0 fL Above high normal 06/22/2024 80 - 100 HHCCT LMWH PPP [employer] Fireman-aCnc 0.44 IU/mL Normal 06/22/2024 HHCCT Anticoagulant IV HEPARIN, UNFRACTIONATED Normal 06/22/2024 HHCCT LMWH PPP [employer] Fireman-aCnc 0.44 IU/mL Normal 06/22/2024 HHCCT Anticoagulant IV HEPARIN, UNFRACTIONATED Normal 06/22/2024 HHCCT POC Glucose 159.0 mg/dL Above high normal 06/22/2024 65 - 99 CCT LMWH PPP Steam [employer] Fireman-aCnc 0.33 IU/mL Normal 06/21/2024 HHCCT Anticoagulant IV HEPARIN, UNFRACTIONATED Normal 06/21/2024 HHCCT POC Glucose 143.0 mg/dL Above high normal 06/21/2024 65 - 99 CCT POC Glucose 203.0 mg/dL Above high normal 06/21/2024 65 - 99 CCT LMWH PPP Steam [employer] Fireman-aCnc 0.22 IU/mL Normal 06/21/2024 HHCCT Anticoagulant IV HEPARIN, UNFRACTIONATED Normal 06/21/2024 HHCCT POC Glucose 165.0 mg/dL Above high normal 06/21/2024 65 - 99 CCT POC Glucose 156.0 mg/dL Above high normal 06/21/2024 65 - 99 CCT Ca-I SerPl-mCnc 1.13 mmol/L Below low normal 06/21/2024 1. 17 - 1.33 HHCCT CO2 SerPl-sCnc 32.0 mmol/L Normal 06/21/2024 22 - 33 CCT Creat SerPl-mCnc 0.4 mg/dL Normal 06/21/2024 0.4 - 1.1 HH CCT Glucose SerPl-mCnc 134.0 mg/dL Above high normal 06/21/2024 65 - 99 CCT GFR/BSA.pred SerPlBld PJY-BHZ-HyTPwm >90.0 Normal 06/21/2024 59 - HHCCT Sodium SerPl-sCnc 139.0 mmol/L Normal 06/21/2024 136 - 14 5 HHCCT Calcium SerPl-mCnc 8.2 mg/dL Below low normal 06/21/2024 8.7 - 10.5 HHCCT Potassium SerPl-sCnc 3.7 mmol/L Normal 06/21/2024 3.4 - 5 .3 HHCCT Chloride SerPl-sCnc 101.0 mmol/L Normal 06/21/2024 98 - 1 07 HHCCT Anion Gap Bld-sCnc 6.0 Below low normal 06/21/2024 7 - 17 HHCCT BUN/Creat SerPl 20.0 Ratio Normal 06/21/2024 10 - 25 HH CCT BUN SerPl-mCnc 8.0 mg/dL Normal 06/21/2024 8 - 21 HH[facility] T Phosphate SerPl-mCnc 3.1 mg/dL Normal 06/21/2024 2.7 - 4. 5 HHCCT Magnesium SerPl-mCnc 1.8 mg/dL Normal 06/21/2024 1.6 - 2. 7 HHCCT LMWH PPP Steam [employer] Fireman-aCnc 0.25 IU/mL Normal 06/21/2024 HHCCT Anticoagulant IV HEPARIN, UNFRACTIONATED Normal 06/21/2024 HHCCT MCH RBC Qn Auto 32.7 pg Above high normal 06/21/2024 27 - 31 HHCCT MCHC RBC Auto-mCnc 32.1 g/dL Normal 06/21/2024 30 - 36 HHCCT WBC num Bld Auto 23.9 Thou/uL Above high normal 06/21/2024 4 - 11 HHCCT MCV RBC Auto 102.0 fL Above high normal 06/21/2024 80 - 100 HHCCT nRBC/100 WBC Bld Auto-Rto 0.1 /100 WBC Normal 06/21/2024 0 - 0.1 HHCCT Platelet num Bld Auto 198.0 Thou/uL Normal 06/21/2024 150 - 450 HHCCT Hgb Bld-mCnc 8.7 g/dL Below low normal 06/21/2024 11.7 - 15.7 HHCCT nRBC num Bld Auto 0.02 Thou/uL Normal 06/21/2024 0 - 0.02 HHCCT RDW RBC Auto-Rto 22.0 % Above high normal 06/21/2024 1 1.5 - 14.5 HHCCT Hct VFr Bld Auto 27.1 % Below low normal 06/21/2024 35 - 47 HHCCT RBC num Bld Auto 2.66 Mil/uL Below low normal 06/21/2024 4 - 5.4 HHCCT PMV Bld Auto 9.9 fL Normal 06/21/2024 7.5 - 12.5 HHCCT POC Glucose 154.0 mg/dL Above high normal 06/21/2024 65 - 99 HHCCT POC Glucose 150.0 mg/dL Above high normal 06/21/2024 65 - 99 HHCCT POC Glucose 150.0 mg/dL Above high normal 06/21/2024 65 - 99 HHCCT POC Glucose 127.0 mg/dL Above high normal 06/20/2024 65 - 99 HHCCT Phosphate SerPl-mCnc 3.4 mg/dL Normal 06/20/2024 2.7 - 4. 5 HHCCT Magnesium SerPl-mCnc 1.7 mg/dL Normal 06/20/2024 1.6 - 2. 7 HHCCT Calcium SerPl-mCnc 7.8 mg/dL Below low normal 06/20/2024 8.7 - 10.5 HHCCT Glucose SerPl-mCnc 137.0 mg/dL Above high normal 06/20/2024 65 - 99 HHCCT Anion Gap Bld-sCnc 9.0 Normal 06/20/2024 7 - 17 HHCCT GFR/BSA.pred SerPlBld QRM-XXD-VlVPpo >90.0 Normal 06/20/2024 59 - HHCCT BUN SerPl-mCnc 7.0 mg/dL Below low normal 06/20/2024 8 - 21 HHCCT Sodium SerPl-sCnc 137.0 mmol/L Normal 06/20/2024 136 - 14 5 HHCCT CO2 SerPl-sCnc 29.0 mmol/L Normal 06/20/2024 22 - 33 HH CCT Creat SerPl-mCnc 0.4 mg/dL Normal 06/20/2024 0.4 - 1.1 HH CCT Potassium SerPl-sCnc 3.7 mmol/L Normal 06/20/2024 3.4 - 5 .3 HHCCT Chloride SerPl-sCnc 99.0 mmol/L Normal 06/20/2024 98 - 10 7 HHCCT BUN/Creat SerPl 18.0 Ratio Normal 06/20/2024 10 - 25 HH CCT nRBC num Bld Auto 0.03 Thou/uL Above high normal 06/20/2024 0 - 0.02 HHCCT PMV Bld Auto 9.4 fL Normal 06/20/2024 7.5 - 12.5 HHCCT nRBC/100 WBC Bld Auto-Rto 0.1 /100 WBC Normal 06/20/2024 0 - 0.1 HHCCT WBC num Bld Auto 25.7 Thou/uL Above high normal 06/20/2024 4 - 11 HHCCT MCHC RBC Auto-mCnc 31.4 g/dL Normal 06/20/2024 30 - 36 HHCCT RBC num Bld Auto 2.63 Mil/uL Below low normal 06/20/2024 4 - 5.4 HHCCT MCH RBC Qn Auto 31.6 pg Above high normal 06/20/2024 27 - 31 HHCCT RDW RBC Auto-Rto 21.4 % Above high normal 06/20/2024 1 1.5 - 14.5 HHCCT Platelet num Bld Auto 193.0 Thou/uL Normal 06/20/2024 150 - 450 HHCCT Hct VFr Bld Auto 26.4 % Below low normal 06/20/2024 35 - 47 HHCCT Hgb Bld-mCnc 8.3 g/dL Below low normal 06/20/2024 11.7 - 15.7 HHCCT MCV RBC Auto 100.0 fL Normal 06/20/2024 80 - 100 HHCCT Ca-I SerPl-mCnc 1.12 mmol/L Below low normal 06/20/2024 1. 17 - 1.33 HHCCT POC Glucose 120.0 mg/dL Above high normal 06/20/2024 65 - 99 HHCCT POC Glucose 150.0 mg/dL Above high normal 06/20/2024 65 - 99 HHCCT LMWH PPP Steam [employer] Fireman-aCnc 0.31 IU/mL Normal 06/20/2024 HHCCT Anticoagulant IV HEPARIN, UNFRACTIONATED Normal 06/20/2024 HHCCT POC Glucose 146.0 mg/dL Above high normal 06/20/2024 65 - 99 HHCCT Phosphate SerPl-mCnc 3.1 mg/dL Normal 06/20/2024 2.7 - 4. 5 HHCCT Magnesium SerPl-mCnc 1.7 mg/dL Normal 06/20/2024 1.6 - 2. 7 HHCCT Anion Gap Bld-sCnc 10.0 Normal 06/20/2024 7 - 17 HHCCT CO2 SerPl-sCnc 27.0 mmol/L Normal 06/20/2024 22 - 33 HH CCT BUN SerPl-mCnc 7.0 mg/dL Below low normal 06/20/2024 8 - 21 HHCCT GFR/BSA.pred SerPlBld IJW-ZOJ-JlXPwf >90.0 Normal 06/20/2024 59 - HHCCT Calcium SerPl-mCnc 7.8 mg/dL Below low normal 06/20/2024 8.7 - 10.5 HHCCT Potassium SerPl-sCnc 3.6 mmol/L Normal 06/20/2024 3.4 - 5 .3 HHCCT BUN/Creat SerPl 18.0 Ratio Normal 06/20/2024 10 - 25 HH CCT Glucose SerPl-mCnc 131.0 mg/dL Above high normal 06/20/2024 65 - 99 HHCCT Sodium SerPl-sCnc 138.0 mmol/L Normal 06/20/2024 136 - 14 5 HHCCT Chloride SerPl-sCnc 101.0 mmol/L Normal 06/20/2024 98 - 1 07 HHCCT Creat SerPl-mCnc 0.4 mg/dL Normal 06/20/2024 0.4 - 1.1 HH CCT LMWH PPP Steam [employer] Fireman-aCnc 0.32 IU/mL Normal 06/20/2024 HHCCT Anticoagulant IV HEPARIN, UNFRACTIONATED Normal 06/20/2024 HHCCT nRBC/100 WBC Bld Auto-Rto 0.1 /100 WBC Normal 06/20/2024 0 - 0.1 HHCCT nRBC num Bld Auto 0.02 Thou/uL Normal 06/20/2024 0 - 0.02 HHCCT MCH RBC Qn Auto 32.1 pg Above high normal 06/20/2024 27 - 31 HHCCT RBC num Bld Auto 2.74 Mil/uL Below low normal 06/20/2024 4 - 5.4 HHCCT Platelet num Bld Auto 201.0 Thou/uL Normal 06/20/2024 150 - 450 HHCCT RDW RBC Auto-Rto 21.1 % Above high normal 06/20/2024 1 1.5 - 14.5 HHCCT Hgb Bld-mCnc 8.8 g/dL Below low normal 06/20/2024 11.7 - 15.7 HHCCT Hct VFr Bld Auto 27.9 % Below low normal 06/20/2024 35 - 47 HHCCT PMV Bld Auto 9.5 fL Normal 06/20/2024 7.5 - 12.5 HHCCT MCV RBC Auto 102.0 fL Above high normal 06/20/2024 80 - 100 HHCCT MCHC RBC Auto-mCnc 31.5 g/dL Normal 06/20/2024 30 - 36 HHCCT WBC num Bld Auto 31.1 Thou/uL Critically high 06/20/2024 4 - 11 HHCCT Ca-I SerPl-mCnc 1.12 mmol/L Below low normal 06/20/2024 1. 17 - 1.33 HHCCT POC Glucose 150.0 mg/dL Above high normal 06/20/2024 65 - 99 HHCCT POC Glucose 141.0 mg/dL Above high normal 06/20/2024 65 - 99 HHCCT POC Glucose 150.0 mg/dL Above high normal 06/19/2024 65 - 99 HHCCT Anion Gap Bld-sCnc 7.0 Normal 06/19/2024 7 - 17 HHCCT Chloride SerPl-sCnc 101.0 mmol/L Normal 06/19/2024 98 - 1 07 HHCCT BUN SerPl-mCnc 6.0 mg/dL Below low normal 06/19/2024 8 - 21 HHCCT Creat SerPl-mCnc 0.4 mg/dL Normal 06/19/2024 0.4 - 1.1 HH CCT Sodium SerPl-sCnc 135.0 mmol/L Below low normal 06/19/2024 1 36 - 145 HHCCT Calcium SerPl-mCnc 7.4 mg/dL Below low normal 06/19/2024 8.7 - 10.5 HHCCT CO2 SerPl-sCnc 27.0 mmol/L Normal 06/19/2024 22 - 33 HH CCT Potassium SerPl-sCnc 3.5 mmol/L Normal 06/19/2024 3.4 - 5 .3 HHCCT GFR/BSA.pred SerPlBld IBJ-AEI-RpXOul >90.0 Normal 06/19/2024 59 - HHCCT Glucose SerPl-mCnc 125.0 mg/dL Above high normal 06/19/2024 65 - 99 HHCCT BUN/Creat SerPl 15.0 Ratio Normal 06/19/2024 10 - 25 HH CCT Phosphate SerPl-mCnc 2.0 mg/dL Below low normal 06/19/2024 2 .7 - 4.5 HHCCT Magnesium SerPl-mCnc 1.9 mg/dL Normal 06/19/2024 1.6 - 2. 7 HHCCT POC Glucose 144.0 mg/dL Above high normal 06/19/2024 65 - 99 HHCCT LMWH PPP Steam [employer] Fireman-aCnc 0.37 IU/mL Normal 06/19/2024 HHCCT Anticoagulant IV HEPARIN, UNFRACTIONATED Normal 06/19/2024 HHCCT POC Glucose 141.0 mg/dL Above high normal 06/19/2024 65 - 99 HHCCT POC Glucose 159.0 mg/dL Above high normal 06/19/2024 65 - 99 HHCCT LMWH PPP Steam [employer] Fireman-aCnc 0.52 IU/mL Normal 06/19/2024 HHCCT Anticoagulant IV HEPARIN, UNFRACTIONATED Normal 06/19/2024 HHCCT Ca-I SerPl-mCnc 1.09 mmol/L Below low normal 06/19/2024 1. 17 - 1.33 HHCCT BUN SerPl-mCnc 7.0 mg/dL Below low normal 06/19/2024 8 - 21 HHCCT BUN/Creat SerPl 14.0 Ratio Normal 06/19/2024 10 - 25 HH CCT Sodium SerPl-sCnc 138.0 mmol/L Normal 06/19/2024 136 - 14 5 HHCCT Anion Gap Bld-sCnc 9.0 Normal 06/19/2024 7 - 17 HHCCT Calcium SerPl-mCnc 7.8 mg/dL Below low normal 06/19/2024 8.7 - 10.5 HHCCT Creat SerPl-mCnc 0.5 mg/dL Normal 06/19/2024 0.4 - 1.1 HH CCT GFR/BSA.pred SerPlBld PXZ-TDS-OqHXzi >90.0 Normal 06/19/2024 59 - HHCCT Chloride SerPl-sCnc 102.0 mmol/L Normal 06/19/2024 98 - 1 07 HHCCT Potassium SerPl-sCnc 3.7 mmol/L Normal 06/19/2024 3.4 - 5 .3 HHCCT CO2 SerPl-sCnc 27.0 mmol/L Normal 06/19/2024 22 - 33 HH CCT Glucose SerPl-mCnc 140.0 mg/dL Above high normal 06/19/2024 65 - 99 HHCCT Phosphate SerPl-mCnc 2.9 mg/dL Normal 06/19/2024 2.7 - 4. 5 HHCCT Magnesium SerPl-mCnc 1.8 mg/dL Normal 06/19/2024 1.6 - 2. 7 HHCCT MCHC RBC Auto-mCnc 32.0 g/dL Normal 06/19/2024 30 - 36 HHCCT Hgb Bld-mCnc 9.8 g/dL Below low normal 06/19/2024 11.7 - 15.7 HHCCT MCH RBC Qn Auto 31.6 pg Above high normal 06/19/2024 27 - 31 HHCCT Hct VFr Bld Auto 30.6 % Below low normal 06/19/2024 35 - 47 HHCCT Platelet num Bld Auto 214.0 Thou/uL Normal 06/19/2024 150 - 450 HHCCT RDW RBC Auto-Rto 20.7 % Above high normal 06/19/2024 1 1.5 - 14.5 HHCCT nRBC num Bld Auto 0.02 Thou/uL Normal 06/19/2024 0 - 0.02 HHCCT MCV RBC Auto 99.0 fL Normal 06/19/2024 80 - 100 HHCCT PMV Bld Auto 9.5 fL Normal 06/19/2024 7.5 - 12.5 HHCCT WBC num Bld Auto 29.0 Thou/uL Above high normal 06/19/2024 4 - 11 HHCCT RBC num Bld Auto 3.1 Mil/uL Below low normal 06/19/2024 4 - 5.4 HHCCT nRBC/100 WBC Bld Auto-Rto 0.1 /100 WBC Normal 06/19/2024 0 - 0.1 HHCCT POC Glucose 156.0 mg/dL Above high normal 06/19/2024 65 - 99 HHCCT LMWH PPP Steam [employer] Fireman-aCnc 0.42 IU/mL Normal 06/19/2024 HHCCT Anticoagulant IV HEPARIN, UNFRACTIONATED Normal 06/19/2024 HHCCT POC Glucose 143.0 mg/dL Above high normal 06/19/2024 65 - 99 HHCCT POC Glucose 139.0 mg/dL Above high normal 06/18/2024 65 - 99 HHCCT POC Glucose 150.0 mg/dL Above high normal 06/18/2024 65 - 99 HHCCT Magnesium SerPl-mCnc 2.0 mg/dL Normal 06/18/2024 1.6 - 2. 7 HHCCT Phosphate SerPl-mCnc 2.6 mg/dL Below low normal 06/18/2024 2 .7 - 4.5 HHCCT BUN SerPl-mCnc 6.0 mg/dL Below low normal 06/18/2024 8 - 21 HHCCT CO2 SerPl-sCnc 28.0 mmol/L Normal 06/18/2024 22 - 33 HH CCT Potassium SerPl-sCnc 4.0 mmol/L Normal 06/18/2024 3.4 - 5 .3 HHCCT BUN/Creat SerPl 10.0 Ratio Normal 06/18/2024 10 - 25 HH CCT Anion Gap Bld-sCnc 5.0 Below low normal 06/18/2024 7 - 17 HHCCT Sodium SerPl-sCnc 139.0 mmol/L Normal 06/18/2024 136 - 14 5 HHCCT Glucose SerPl-mCnc 122.0 mg/dL Above high normal 06/18/2024 65 - 99 HHCCT GFR/BSA.pred SerPlBld FNF-SUB-MkRRnh >90.0 Normal 06/18/2024 59 - HHCCT Chloride SerPl-sCnc 106.0 mmol/L Normal 06/18/2024 98 - 1 07 HHCCT Creat SerPl-mCnc 0.6 mg/dL Normal 06/18/2024 0.4 - 1.1 HH CCT Calcium SerPl-mCnc 7.6 mg/dL Below low normal 06/18/2024 8.7 - 10.5 HHCCT LMWH PPP Steam [employer] Fireman-aCnc 0.14 IU/mL Normal 06/18/2024 HHCCT Anticoagulant IV HEPARIN, UNFRACTIONATED Normal 06/18/2024 HHCCT POC Glucose 119.0 mg/dL Above high normal 06/18/2024 65 - 99 HHCCT POC Glucose 91.0 mg/dL Normal 06/18/2024 65 - 99 HHCCT POC Glucose 71.0 mg/dL Normal 06/18/2024 65 - 99 HHCCT POC Glucose 69.0 mg/dL Normal 06/18/2024 65 - 99 HHCCT Phosphate SerPl-mCnc 2.2 mg/dL Below low normal 06/18/2024 2 .7 - 4.5 HHCCT LMWH PPP Steam [employer]iler Fireman-aCnc 0.35 IU/mL Normal 06/18/2024 HHCCT Anticoagulant IV HEPARIN, UNFRACTIONATED Normal 06/18/2024 HHCCT POC Glucose 103.0 mg/dL Above high normal 06/18/2024 65 - 99 HHCCT POC Glucose 156.0 mg/dL Above high normal 06/18/2024 65 - 99 HHCCT Magnesium SerPl-mCnc 1.9 mg/dL Normal 06/18/2024 1.6 - 2. 7 HHCCT Chloride SerPl-sCnc 106.0 mmol/L Normal 06/18/2024 98 - 1 07 HHCCT Anion Gap Bld-sCnc 6.0 Below low normal 06/18/2024 7 - 17 HHCCT Creat SerPl-mCnc 0.6 mg/dL Normal 06/18/2024 0.4 - 1.1 HH CCT BUN/Creat SerPl 12.0 Ratio Normal 06/18/2024 10 - 25 HH CCT Calcium SerPl-mCnc 7.7 mg/dL Below low normal 06/18/2024 8.7 - 10.5 HHCCT Glucose SerPl-mCnc 122.0 mg/dL Above high normal 06/18/2024 65 - 99 HHCCT GFR/BSA.pred SerPlBld PKC-[id number]-[id number] >90.0 Normal 06/18/2024 59 - HHCCT BUN SerPl-mCnc 7.0 mg/dL Below low normal 06/18/2024 8 - 21 HHCCT CO2 SerPl-sCnc 26.0 mmol/L Normal 06/18/2024 22 - 33 HH CCT Potassium SerPl-sCnc 3.5 mmol/L Normal 06/18/2024 3.4 - 5 .3 HHCCT Sodium SerPl-sCnc 138.0 mmol/L Normal 06/18/2024 136 - 14 5 HHCCT Phosphate SerPl-mCnc 1.2 mg/dL Below low normal 06/18/2024 2 .7 - 4.5 HHCCT LMWH PPP Steam [employer] Fireman-aCnc 0.24 IU/mL Normal 06/18/2024 HHCCT Anticoagulant IV HEPARIN, UNFRACTIONATED Normal 06/18/2024 HHCCT Hct VFr Bld Auto 29.6 % Below low normal 06/18/2024 35 - 47 HHCCT nRBC/100 WBC Bld Auto-Rto 0.1 /100 WBC Normal 06/18/2024 0 - 0.1 HHCCT WBC num Bld Auto 25.7 Thou/uL Above high normal 06/18/2024 4 - 11 HHCCT RDW RBC Auto-Rto 20.4 % Above high normal 06/18/2024 1 1.5 - 14.5 HHCCT Hgb Bld-mCnc 9.3 g/dL Below low normal 06/18/2024 11.7 - 15.7 HHCCT MCHC RBC Auto-mCnc 31.4 g/dL Normal 06/18/2024 30 - 36 HHCCT PMV Bld Auto 8.9 fL Normal 06/18/2024 7.5 - 12.5 HHCCT nRBC num Bld Auto 0.03 Thou/uL Above high normal 06/18/2024 0 - 0.02 HHCCT RBC num Bld Auto 2.94 Mil/uL Below low normal 06/18/2024 4 - 5.4 HHCCT MCV RBC Auto 101.0 fL Above high normal 06/18/2024 80 - 100 HHCCT Platelet num Bld Auto 219.0 Thou/uL Normal 06/18/2024 150 - 450 HHCCT MCH RBC Qn Auto 31.6 pg Above high normal 06/18/2024 27 - 31 HHCCT POC Glucose 140.0 mg/dL Above high normal 06/18/2024 65 - 99 HHCCT POC Glucose 141.0 mg/dL Above high normal 06/18/2024 65 - 99 HHCCT POC Glucose 159.0 mg/dL Above high normal 06/17/2024 65 - 99 HHCCT POC Glucose 154.0 mg/dL Above high normal 06/17/2024 65 - 99 HHCCT LMWH PPP Steam Boiler Fireman-aCnc 0.37 IU/mL Normal 06/17/2024 HHCCT Anticoagulant IV HEPARIN, UNFRACTIONATED Normal 06/17/2024 HHCCT POC Glucose 176.0 mg/dL Above high normal 06/17/2024 65 - 99 HHCCT Trigl SerPl-mCnc 53.0 mg/dL Normal 06/17/2024 - 150 H HCCT BUN SerPl-mCnc 7.0 mg/dL Below low normal 06/17/2024 8 - 21 HHCCT Glucose SerPl-mCnc 149.0 mg/dL Above high normal 06/17/2024 65 - 99 HHCCT GFR/BSA.pred SerPlBld KAN-FTN-ExAZql 77.0 Normal 06/17/2024 59 - HHCCT Potassium SerPl-sCnc 3.6 mmol/L Normal 06/17/2024 3.4 - 5 .3 HHCCT Creat SerPl-mCnc 0.8 mg/dL Normal 06/17/2024 0.4 - 1.1 HH CCT CO2 SerPl-sCnc 27.0 mmol/L Normal 06/17/2024 22 - 33 HH CCT Chloride SerPl-sCnc 108.0 mmol/L Above high normal 98 - 107 HHCCT BUN/Creat SerPl 9.0 Ratio Below low normal 06/17/2024 10 - 2 5 HHCCT Calcium SerPl-mCnc 7.8 mg/dL Below low normal 06/17/2024 8.7 - 10.5 HHCCT Anion Gap Bld-sCnc 5.0 Below low normal 06/17/2024 7 - 17 HHCCT Sodium SerPl-sCnc 140.0 mmol/L Normal 06/17/2024 136 - 14 5 HHCCT Phosphate SerPl-mCnc 2.6 mg/dL Below low normal 06/17/2024 2 .7 - 4.5 HHCCT Prot SerPl-mCnc 4.3 g/dL Below low normal 06/17/2024 6.3 - 8.3 HHCCT Albumin/Glob SerPl 1.4 Ratio Normal 06/17/2024 1 - 3 HHCCT Bilirub Direct SerPl-mCnc 0.2 mg/dL Normal 06/17/2024 0 - 0.2 HHCCT Globulin Ser Calc-mCnc 1.8 g/dL Normal 06/17/2024 1.5 - 3.9 HHCCT Albumin SerPl-mCnc 2.5 g/dL Below low normal 06/17/2024 3.4 - 4.8 HHCCT AST SerPl-cCnc 18.0 U/L Normal 06/17/2024 10 - 50 HHCC T Bilirub SerPl-mCnc 0.5 mg/dL Normal 06/17/2024 0.2 - 1 HHCCT ALT SerPl-cCnc 13.0 U/L Normal 06/17/2024 10 - 50 HHCC T ALP SerPl-cCnc 40.0 U/L Normal 06/17/2024 32 - 122 HHCC T Magnesium SerPl-mCnc 2.1 mg/dL Normal 06/17/2024 1.6 - 2. 7 HHCCT WBC num Bld Auto 22.1 Thou/uL Above high normal 06/17/2024 4 - 11 HHCCT RBC num Bld Auto 3.0 Mil/uL Below low normal 06/17/2024 4 - 5.4 HHCCT MCV RBC Auto 98.0 fL Normal 06/17/2024 80 - 100 HHCCT RDW RBC Auto-Rto 20.2 % Above high normal 06/17/2024 1 1.5 - 14.5 HHCCT nRBC/100 WBC Bld Auto-Rto 0.1 /100 WBC Normal 06/17/2024 0 - 0.1 HHCCT nRBC num Bld Auto 0.03 Thou/uL Above high normal 06/17/2024 0 - 0.02 HHCCT Hct VFr Bld Auto 29.5 % Below low normal 06/17/2024 35 - 47 HHCCT PMV Bld Auto 8.7 fL Normal 06/17/2024 7.5 - 12.5 HHCCT Platelet num Bld Auto 262.0 Thou/uL Normal 06/17/2024 150 - 450 HHCCT MCHC RBC Auto-mCnc 31.5 g/dL Normal 06/17/2024 30 - 36 HHCCT MCH RBC Qn Auto 31.0 pg Normal 06/17/2024 27 - [address] Hgb Bld-mCnc 9.3 g/dL Below low normal 06/17/2024 11.7 - 15.7 HHCCT Ca-I SerPl-mCnc 1.14 mmol/L Below low normal 06/17/2024 1. 17 - 1.33 HHCCT POC Glucose 145.0 mg/dL Above high normal 06/17/2024 65 - 99 HHCCT LMWH PPP Steam [employer] Fireman-aCnc 0.41 IU/mL Normal 06/17/2024 HHCCT Anticoagulant IV HEPARIN, UNFRACTIONATED Normal 06/17/2024 HHCCT RBC num Bld Auto 2.91 Mil/uL Below low normal 06/17/2024 4 - 5.4 HHCCT Platelet num Bld Auto 256.0 Thou/uL Normal 06/17/2024 150 - 450 HHCCT RDW RBC Auto-Rto 20.2 % Above high normal 06/17/2024 1 1.5 - 14.5 HHCCT MCH RBC Qn Auto 31.3 pg Above high normal 06/17/2024 27 - 31 HHCCT WBC num Bld Auto 23.6 Thou/uL Above high normal 06/17/2024 4 - 11 HHCCT Hgb Bld-mCnc 9.1 g/dL Below low normal 06/17/2024 11.7 - 15.7 HHCCT PMV Bld Auto 8.4 fL Normal 06/17/2024 7.5 - 12.5 HHCCT Hct VFr Bld Auto 28.8 % Below low normal 06/17/2024 35 - 47 [facility]HC[facility] MCV RBC Auto 99.0 fL Normal 06/17/2024 80 - 100 [facility]CT MCHC RBC Auto-mCnc 31.6 g/dL Normal 06/17/2024 30 - 36 HHCCT POC Glucose 99.0 mg/dL Normal 06/16/2024 65 - 99 HHCCT MCH RBC Qn Auto 30.7 pg Normal 06/16/2024 27 - [address] MCHC RBC Auto-mCnc 30.9 g/dL Normal 06/16/2024 30 - 36 HHCCT WBC num Bld Auto 19.2 Thou/uL Above high normal 06/16/2024 4 - 11 HHCCT MCV RBC Auto 99.0 fL Normal 06/16/2024 80 - 100 HHCCT RDW RBC Auto-Rto 20.0 % Above high normal 06/16/2024 1 1.5 - 14.5 HHCCT RBC num Bld Auto 3.0 Mil/uL Below low normal 06/16/2024 4 - 5.4 HHCCT Hct VFr Bld Auto 29.8 % Below low normal 06/16/2024 35 - 47 HHCCT PMV Bld Auto 8.6 fL Normal 06/16/2024 7.5 - 12.5 HHCCT Platelet num Bld Auto 273.0 Thou/uL Normal 06/16/2024 150 - 450 HHCCT Hgb Bld-mCnc 9.2 g/dL Below low normal 06/16/2024 11.7 - 15.7 HHCCT POC Glucose 120.0 mg/dL Above high normal 06/16/2024 65 - 99 HHCCT RDW RBC Auto-Rto 21.4 % Above high normal 06/16/2024 1 1.5 - 14.5 HHCCT nRBC num Bld Auto 0.02 Thou/uL Normal 06/16/2024 0 - 0.02 HHCCT MCHC RBC Auto-mCnc 30.8 g/dL Normal 06/16/2024 30 - 36 HHCCT WBC num Bld Auto 18.0 Thou/uL Above high normal 06/16/2024 4 - 11 HHCCT Hgb Bld-mCnc 7.6 g/dL Below low normal 06/16/2024 11.7 - 15.7 HHCCT Hct VFr Bld Auto 24.7 % Below low normal 06/16/2024 35 - 47 HHCCT MCH RBC Qn Auto 31.1 pg Above high normal 06/16/2024 27 - 31 HHCCT RBC num Bld Auto 2.44 Mil/uL Below low normal 06/16/2024 4 - 5.4 HHCCT nRBC/100 WBC Bld Auto-Rto 0.1 /100 WBC Normal 06/16/2024 0 - 0.1 HHCCT MCV RBC Auto 101.0 fL Above high normal 06/16/2024 80 - 100 HHCCT Platelet num Bld Auto 283.0 Thou/uL Normal 06/16/2024 150 - 450 HHCCT PMV Bld Auto 8.8 fL Normal 06/16/2024 7.5 - 12.5 HHCCT POC Glucose 108.0 mg/dL Above high normal 06/16/2024 65 - 99 HHCCT Vancomycin SerPl-mCnc 37.0 mg/L Critically high 06/16/2024 HHCCT Time of last dose Information not given Normal 06/16/2024 HHCCT Phosphate SerPl-mCnc 4.9 mg/dL Above high normal 06/16/2024 2.7 - 4.5 HHCCT Anion Gap Bld-sCnc 14.0 Normal 06/16/2024 7 - 17 HHCCT Glucose SerPl-mCnc 113.0 mg/dL Above high normal 06/16/2024 65 - 99 HHCCT BUN/Creat SerPl 6.0 Ratio Below low normal 06/16/2024 10 - 2 5 HHCCT Potassium SerPl-sCnc 4.2 mmol/L Normal 06/16/2024 3.4 - 5 .3 HHCCT Sodium SerPl-sCnc 142.0 mmol/L Normal 06/16/2024 136 - 14 5 HHCCT Calcium SerPl-mCnc 8.4 mg/dL Below low normal 06/16/2024 8.7 - 10.5 HHCCT CO2 SerPl-sCnc 21.0 mmol/L Below low normal 06/16/2024 22 - 33 HHCCT Creat SerPl-mCnc 0.8 mg/dL Normal 06/16/2024 0.4 - 1.1 HH CCT BUN SerPl-mCnc 5.0 mg/dL Below low normal 06/16/2024 8 - 21 HHCCT Chloride SerPl-sCnc 107.0 mmol/L Normal 06/16/2024 98 - 1 07 HHCCT GFR/BSA.pred SerPlBld [id number] 77.0 Normal 06/16/2024 59 - HHCCT Magnesium SerPl-mCnc 2.2 mg/dL Normal 06/16/2024 1.6 - 2. 7 HHCCT Ca-I SerPl-mCnc 1.18 mmol/L Normal 06/16/2024 1.17 - 1.33 HHCCT RDW RBC Auto-Rto 21.5 % Above high normal 06/16/2024 1 1.5 - 14.5 HHCCT MCV RBC Auto 100.0 fL Normal 06/16/2024 80 - 100 HHCCT MCH RBC Qn Auto 31.4 pg Above high normal 06/16/2024 27 - 31 HHCCT WBC num Bld Auto 18.3 Thou/uL Above high normal 06/16/2024 4 - 11 HHCCT PMV Bld Auto 8.8 fL Normal 06/16/2024 7.5 - 12.5 HHCCT RBC num Bld Auto 2.64 Mil/uL Below low normal 06/16/2024 4 - 5.4 HHCCT MCHC RBC Auto-mCnc 31.4 g/dL Normal 06/16/2024 30 - 36 HHCCT nRBC num Bld Auto 0.02 Thou/uL Normal 06/16/2024 0 - 0.02 HHCCT Platelet num Bld Auto 288.0 Thou/uL Normal 06/16/2024 150 - 450 HHCCT nRBC/100 WBC Bld Auto-Rto 0.1 /100 WBC Normal 06/16/2024 0 - 0.1 HHCCT Hgb Bld-mCnc 8.3 g/dL Below low normal 06/16/2024 11.7 - 15.7 HHCCT Hct VFr Bld Auto 26.4 % Below low normal 06/16/2024 35 - 47 HHCCT POC Glucose 111.0 mg/dL Above high normal 06/16/2024 65 - 99 CCT POC Glucose 145.0 mg/dL Above high normal 06/16/2024 65 - 99 CCT Est. average glucose Bld gHb Est-mCnc 97.0 mg/dL Normal 06/16/2024 CCT Hgb A1c MFr Bld 5.0 % Normal 06/16/2024 - 5.[address] Transferrin SerPl-mCnc 40.0 mg/dL Below low normal 06/16/2024 200 - 360 HHCCT Bilirub SerPl-mCnc 0.7 mg/dL Normal 06/16/2024 0.2 - 1 HHCCT AST SerPl-cCnc 19.0 U/L Normal 06/16/2024 10 - 50 HHCC T Prot SerPl-mCnc 4.4 g/dL Below low normal 06/16/2024 6.3 - 8.3 HHCCT Albumin/Glob SerPl 1.2 Ratio Normal 06/16/2024 1 - 3 HHCCT ALT SerPl-cCnc 14.0 U/L Normal 06/16/2024 10 - 50 HHCC T ALP SerPl-cCnc 50.0 U/L Normal 06/16/2024 32 - 122 HHCC T Globulin Ser Calc-mCnc 2.0 g/dL Normal 06/16/2024 1.5 - 3.9 HHCCT Albumin SerPl-mCnc 2.4 g/dL Below low normal 06/16/2024 3.4 - 4.8 HHCCT Bilirub Direct SerPl-mCnc 0.3 mg/dL Above high normal 06/16/2024 0 - 0.2 HHCCT Magnesium SerPl-mCnc 1.8 mg/dL Normal 06/16/2024 1.6 - 2. 7 HHCCT Prealb SerPl-mCnc 5.0 mg/dL Below low normal 06/16/2024 20 - 40 HHCCT Phosphate SerPl-mCnc 5.0 mg/dL Above high normal 06/16/2024 2.7 - 4.5 HHCCT GFR/BSA.pred SerPlBld [id number] >90.0 Normal 06/16/2024 59 - HHCCT Creat SerPl-mCnc 0.7 mg/dL Normal 06/16/2024 0.4 - 1.1 HH CCT Calcium SerPl-mCnc 8.5 mg/dL Below low normal 06/16/2024 8.7 - 10.5 HHCCT Sodium SerPl-sCnc 139.0 mmol/L Normal 06/16/2024 136 - 14 5 HHCCT BUN/Creat SerPl 6.0 Ratio Below low normal 06/16/2024 10 - 2 5 HHCCT CO2 SerPl-sCnc 19.0 mmol/L Below low normal 06/16/2024 22 - 33 HHCCT Potassium SerPl-sCnc 4.1 mmol/L Normal 06/16/2024 3.4 - 5 .3 HHCCT Glucose SerPl-mCnc 120.0 mg/dL Above high normal 06/16/2024 65 - 99 HHCCT Anion Gap Bld-sCnc 14.0 Normal 06/16/2024 7 - 17 HHCCT BUN SerPl-mCnc 4.0 mg/dL Below low normal 06/16/2024 8 - 21 HHCCT Chloride SerPl-sCnc 106.0 mmol/L Normal 06/16/2024 98 - 1 07 HHCCT MCHC RBC Auto-mCnc 30.3 g/dL Normal 06/16/2024 30 - 36 HHCCT Hgb Bld-mCnc 8.7 g/dL Below low normal 06/16/2024 11.7 - 15.7 HHCCT Platelet num Bld Auto 287.0 Thou/uL Normal 06/16/2024 150 - 450 HHCCT RDW RBC Auto-Rto 21.2 % Above high normal 06/16/2024 1 1.5 - 14.5 HHCCT nRBC/100 WBC Bld Auto-Rto 0.1 /100 WBC Normal 06/16/2024 0 - 0.1 HHCCT nRBC num Bld Auto 0.03 Thou/uL Above high normal 06/16/2024 0 - 0.02 HHCCT PMV Bld Auto 8.6 fL Normal 06/16/2024 7.5 - 12.5 HHCCT MCH RBC Qn Auto 30.7 pg Normal 06/16/2024 27 - [address] MCV RBC Auto 101.0 fL Above high normal 06/16/2024 80 - 100 HHCCT Hct VFr Bld Auto 28.7 % Below low normal 06/16/2024 35 - 47 HHCCT RBC num Bld Auto 2.83 Mil/uL Below low normal 06/16/2024 4 - 5.4 HHCCT WBC num Bld Auto 30.7 Thou/uL Critically high 06/16/2024 4 - 11 HHCCT Lactate SerPl-sCnc 1.5 mmol/L Normal 06/16/2024 0.5 - 1.9 HHCCT Ca-I SerPl-mCnc 1.15 mmol/L Below low normal 06/16/2024 1. 17 - 1.33 HHCCT POC Glucose 150.0 mg/dL Above high normal 06/16/2024 65 - 99 HHCCT POC Glucose 122.0 mg/dL Above high normal 06/15/2024 65 - 99 HHCCT WBC num Bld Auto 37.2 Thou/uL Critically high 06/16/2024 4 - 11 HHCCT nRBC/100 WBC Bld Auto-Rto 0.1 /100 WBC Normal 06/16/2024 0 - 0.1 HHCCT nRBC num Bld Auto 0.04 Thou/uL Above high normal 06/16/2024 0 - 0.02 HHCCT MCH RBC Qn Auto 31.0 pg Normal 06/16/2024 27 - [address] MCHC RBC Auto-mCnc 31.2 g/dL Normal 06/16/2024 30 - 36 HHCCT Hgb Bld-mCnc 9.1 g/dL Below low normal 06/16/2024 11.7 - 15.7 HHCCT Hct VFr Bld Auto 29.2 % Below low normal 06/16/2024 35 - 47 HHCCT MCV RBC Auto 99.0 fL Normal 06/16/2024 80 - 100 HHCCT RBC num Bld Auto 2.94 Mil/uL Below low normal 06/16/2024 4 - 5.4 HHCCT RDW RBC Auto-Rto 21.0 % Above high normal 06/16/2024 1 1.5 - 14.5 HHCCT Platelet num Bld Auto 304.0 Thou/uL Normal 06/16/2024 150 - 450 HHCCT PMV Bld Auto 8.8 fL Normal 06/16/2024 7.5 - 12.5 HHCCT Metamyelocytes/leuk NFr Bld Manual 1.0 % Normal 06/15/2024 HHCCT Lymphocytes num Bld Auto 0.4 Thou/uL Below low normal 06/15/2024 1.5 - 4.5 HHCCT Neutrophils num Bld Auto 37.5 Thou/uL Above high normal 06/15/2024 2 - 7.5 HHCCT Normochromic Bld Ql Smear Present Normal 06[facility]15[facility]2024 [facility] Neutrophil 91.0 % Normal 06/15/2024 [facility] Monocyte, Absolute 0.4 Thou/uL Normal 06/15/2024 0.2 - 1. 5 [facility]CT Myelocytes num Bld Manual 1.2 Thou/uL Above high normal 06/15/2024 - [facility] Metamyelocytes num Bld Manual 0.4 Thou/uL Above high normal 06/15/2024 - [facility] Kevin Cells Bld Ql Smear Present Normal 06/15/2024 [facility] Neuts Band num Bld Manual 3.0 % Normal 06/15/2024 [facility] Normocytes Present Normal 06/15/2024 [facility] Myelocytes/leuk NFr Bld Manual 3.0 % Normal 06/15/2024 [facility] Monocytes/leuk NFr Bld Auto 1.0 % Normal 06/15/2024 [facility] Lymphocytes/leuk NFr Bld Auto 1.0 % Normal 06/15/2024 HHCCT Hct VFr Bld Auto 36.5 % Normal 06/15/2024 35 - 47 HH CCT PMV Bld Auto 8.5 fL Normal 06/15/2024 7.5 - 12.5 HHCCT nRBC/100 WBC Bld Auto-Rto 0.1 /100 WBC Normal 06/15/2024 0 - 0.1 HHCCT nRBC num Bld Auto 0.05 Thou/uL Above high normal 06/15/2024 0 - 0.02 HHCCT MCH RBC Qn Auto 31.6 pg Above high normal 06/15/2024 27 - 31 HHCCT RDW RBC Auto-Rto 20.5 % Above high normal 06/15/2024 1 1.5 - 14.5 HHCCT WBC num Bld Auto 39.9 Thou/uL Critically high 06/15/2024 4 - 11 H[facility]CT Platelet num Bld Auto 393.0 Thou/uL Normal 06/15/2024 150 - 450 HHCCT MCHC RBC Auto-mCnc 32.1 g/dL Normal 06/15/2024 30 - 36 HHCCT Hgb Bld-mCnc 11.7 g/dL Normal 06/15/2024 11.7 - 15.7 HHCCT RBC num Bld Auto 3.7 Mil/uL Below low normal 06/15/2024 4 - 5.4 HHCCT MCV RBC Auto 99.0 fL Normal 06/15/2024 80 - 100 HHCCT Procalcitonin SerPl EIA-mCnc 0.1 ng/mL Above high normal 06/15/2024 - 0.09 HHCCT Phosphate SerPl-mCnc 5.3 mg/dL Above high normal 06/15/2024 2.7 - 4.5 HHCCT Magnesium SerPl-mCnc 1.8 mg/dL Normal 06/15/2024 1.6 - 2. 7 HHCCT Chloride SerPl-sCnc 109.0 mmol/L Above high normal 98 - 107 HHCCT Glucose SerPl-mCnc 130.0 mg/dL Above high normal 06/15/2024 65 - 99 HHCCT BUN/Creat SerPl 4.0 Ratio Below low normal 06/15/2024 10 - 2 5 HHCCT Calcium SerPl-mCnc 9.3 mg/dL Normal 06/15/2024 8.7 - 10.5 HHCCT Sodium SerPl-sCnc 139.0 mmol/L Normal 06/15/2024 136 - 14 5 HHCCT BUN SerPl-mCnc 3.0 mg/dL Below low normal 06/15/2024 8 - 21 HHCCT Creat SerPl-mCnc 0.7 mg/dL Normal 06/15/2024 0.4 - 1.1 HH CCT GFR/BSA.pred SerPlBld [id number] >90.0 Normal 06/15/2024 59 - HHCCT Anion Gap Bld-sCnc 12.0 Normal 06/15/2024 7 - 17 HHCCT CO2 SerPl-sCnc 18.0 mmol/L Below low normal 06/15/2024 22 - 33 HHCCT Potassium SerPl-sCnc 3.8 mmol/L Normal 06/15/2024 3.4 - 5 .3 HHCCT Fibrinogen PPP-mCnc 277.0 mg/dL Normal 06/15/2024 148 - 4 35 HHCCT aPTT PPP 28.0 seconds Normal 06/15/2024 25 - 36 HHCCT Anticoagulant NO ANTI COAGULANT MEDS Normal 06/15/2024 HHCCT TT imm Bovine Thrombin PPP 17.5 seconds Normal 06/15/2024 12.7 - 19.2 HHCCT Anticoagulant NO ANTI COAGULANT MEDS Normal 06/15/2024 HHCCT INR PPP 1.3 Normal 06/15/2024 HHCCT Prothrombin time 14.6 seconds Above high normal 06/15/2024 1 0 - 13.5 HHCCT Anticoagulant NO ANTI COAGULANT MEDS Normal 06/15/2024 HHCCT Lactate SerPl-sCnc 2.1 mmol/L Above high normal 06/15/2024 0 .5 - 1.9 HHCCT Neutrophils num Bld Auto 4.8 Thou/uL Normal 06/15/2024 2 - 7.5 HHCCT Monocytes/leuk NFr Bld Auto 2.0 % Normal 06/15/2024 HHCCT Monocyte, Absolute 0.1 Thou/uL Below low normal 06/15/2024 0 .2 - 1.5 HHCCT Neuts Band num Bld Manual 1.0 % Normal 06/15/2024 HHCCT Basophils/leuk NFr Bld Auto 1.0 % Normal 06/15/2024 HHCCT Eosinophil num Bld Auto 0.1 Thou/uL Normal 06/15/2024 0 - 0.7 HHCCT Lymphocytes num Bld Auto 0.6 Thou/uL Below low normal 06/15/2024 1.5 - 4.5 HHCCT Normochromic Bld Ql Smear Present Normal 06/15/2024 HHCCT Segmented Neutrophil 82.0 % Normal 06/15/2024 HHCCT Myelocytes/leuk NFr Bld Manual 2.0 % Normal 06/15/2024 HHCCT Myelocytes num Bld Manual 0.1 Thou/uL Above high normal 06/15/2024 - HHCCT Basophils num Bld Auto 0.1 Thou/uL Normal 06/15/2024 0 - 0.2 HHCCT Normocytes Present Normal 06/15/2024 HHCCT Lymphocytes/leuk NFr Bld Auto 11.0 % Normal 06/15/2024 HHCCT Eosinophil 1.0 % Normal 06/15/2024 HHCCT MCH RBC Qn Auto 31.6 pg Above high normal 06/15/2024 27 - 31 HHCCT MCHC RBC Auto-mCnc 30.6 g/dL Normal 06/15/2024 30 - 36 HHCCT PMV Bld Auto 8.3 fL Normal 06/15/2024 7.5 - 12.5 HHCCT RBC num Bld Auto 2.85 Mil/uL Below low normal 06/15/2024 4 - 5.4 HHCCT RDW RBC Auto-Rto 18.1 % Above high normal 06/15/2024 1 1.5 - 14.5 HHCCT WBC num Bld Auto 5.8 Thou/uL Normal 06/15/2024 4 - 11 HHCCT Platelet num Bld Auto 292.0 Thou/uL Normal 06/15/2024 150 - 450 HHCCT Hgb Bld-mCnc 9.0 g/dL Below low normal 06/15/2024 11.7 - 15.7 HHCCT Hct VFr Bld Auto 29.4 % Below low normal 06/15/2024 35 - 47 HHCCT MCV RBC Auto 103.0 fL Above high normal 06/15/2024 80 - 100 HHCCT Phosphate SerPl-mCnc 2.8 mg/dL Normal 06/15/2024 2.7 - 4. 5 HHCCT Sodium SerPl-sCnc 141.0 mmol/L Normal 06/15/2024 136 - 14 5 HHCCT Glucose SerPl-mCnc 65.0 mg/dL Normal 06/15/2024 65 - 99 HHCCT Chloride SerPl-sCnc 106.0 mmol/L Normal 06/15/2024 98 - 1 07 HHCCT BUN SerPl-mCnc 3.0 mg/dL Below low normal 06/15/2024 8 - 21 HHCCT Potassium SerPl-sCnc 3.5 mmol/L Normal 06/15/2024 3.4 - 5 .3 HHCCT BUN/Creat SerPl 5.0 Ratio Below low normal 06/15/2024 10 - 2 5 HHCCT GFR/BSA.pred SerPlBld [id number] >90.0 Normal 06/15/2024 59 - HHCCT Calcium SerPl-mCnc 7.7 mg/dL Below low normal 06/15/2024 8.7 - 10.5 HHCCT Anion Gap Bld-sCnc 10.0 Normal 06/15/2024 7 - 17 HHCCT Creat SerPl-mCnc 0.6 mg/dL Normal 06/15/2024 0.4 - 1.1 HH CCT CO2 SerPl-sCnc 25.0 mmol/L Normal 06/15/2024 22 - 33 HH CCT Magnesium SerPl-mCnc 1.9 mg/dL Normal 06/15/2024 1.6 - 2. 7 HHCCT Prothrombin time 13.6 seconds Above high normal 06/15/2024 1 0 - 13.5 HHCCT INR PPP 1.2 Normal 06/15/2024 HHCCT Anticoagulant IV HEPARIN, UNFRACTIONATED, BEING HELD Normal 06/15/2024 HHCCT LMWH PPP [employer]man-aCnc 0.44 IU/mL Normal 06/14/2024 CCT Anticoagulant IV HEPARIN, UNFRACTIONATED Normal 06/14/2024 HHCCT LMWH PPP Steam [employer] Fireman-aCnc 0.1 IU/mL Normal 06/14/2024 HHCCT Anticoagulant IV HEPARIN, UNFRACTIONATED Normal 06/14/2024 CCT Lymphocytes/leuk NFr Bld Auto 16.0 % Normal 06/14/2024 CCT Myelocytes/leuk NFr Bld Manual 1.0 % Normal 06/14/2024 CCT Myelocytes num Bld Manual 0.1 Thou/uL Above high normal 06/14/2024 - CCT Macrocytes Bld Ql Smear Present Normal 06/14/2024 CCT Normochromic Bld Ql Smear Present Normal 06/14/2024 CCT Segmented Neutrophil 79.0 % Normal 06/14/2024 CCT Monocyte, Absolute 0.3 Thou/uL Normal 06/14/2024 0.2 - 1. 5 HHCCT Normocytes Present Normal 06/14/2024 CCT Lymphocytes num Bld Auto 1.2 Thou/uL Below low normal 06/14/2024 1.5 - 4.5 HHCCT Monocytes/leuk NFr Bld Auto 4.0 % Normal 06/14/2024 CCT Neutrophils num Bld Auto 5.8 Thou/uL Normal 06/14/2024 2 - 7.5 HHCCT Hgb Bld-mCnc 7.2 g/dL Below low normal 06/14/2024 11.7 - 15.7 HHCCT Platelet num Bld Auto 294.0 Thou/uL Normal 06/14/2024 150 - 450 HHCCT MCH RBC Qn Auto 32.1 pg Above high normal 06/14/2024 27 - 31 HHCCT Hct VFr Bld Auto 23.2 % Below low normal 06/14/2024 35 - 47 HHCCT RDW RBC Auto-Rto 18.1 % Above high normal 06/14/2024 1 1.5 - 14.5 HHCCT RBC num Bld Auto 2.24 Mil/uL Below low normal 06/14/2024 4 - 5.4 HHCCT MCHC RBC Auto-mCnc 31.0 g/dL Normal 06/14/2024 30 - 36 HHCCT MCV RBC Auto 104.0 fL Above high normal 06/14/2024 80 - 100 HHCCT PMV Bld Auto 8.1 fL Normal 06/14/2024 7.5 - 12.5 HHCCT WBC num Bld Auto 7.3 Thou/uL Normal 06/14/2024 4 - 11 HHCCT Magnesium SerPl-mCnc 1.9 mg/dL Normal 06/14/2024 1.6 - 2. 7 HHCCT Phosphate SerPl-mCnc 2.9 mg/dL Normal 06/14/2024 2.7 - 4. 5 HHCCT Glucose SerPl-mCnc 61.0 mg/dL Below low normal 06/14/2024 65 - 99 HHCCT Sodium SerPl-sCnc 142.0 mmol/L Normal 06/14/2024 136 - 14 5 HHCCT GFR/BSA.pred SerPlBld [id number] >90.0 Normal 06/14/2024 59 - HHCCT Creat SerPl-mCnc 0.7 mg/dL Normal 06/14/2024 0.4 - 1.1 HH CCT Calcium SerPl-mCnc 7.5 mg/dL Below low normal 06/14/2024 8.7 - 10.5 HHCCT Chloride SerPl-sCnc 107.0 mmol/L Normal 06/14/2024 98 - 1 07 HHCCT Anion Gap Bld-sCnc 9.0 Normal 06/14/2024 7 - 17 HHCCT BUN/Creat SerPl 6.0 Ratio Below low normal 06/14/2024 10 - 2 5 HHCCT Potassium SerPl-sCnc 3.2 mmol/L Below low normal 06/14/2024 3.4 - 5.3 HHCCT BUN SerPl-mCnc 4.0 mg/dL Below low normal 06/14/2024 8 - 21 HHCCT CO2 SerPl-sCnc 26.0 mmol/L Normal 06/14/2024 22 - 33 HH CCT Vancomycin SerPl-mCnc 38.0 mg/L Critically high 06/14/2024 HHCCT Time of last dose Information not given Normal 06/14/2024 HHCCT Prothrombin time 13.9 seconds Above high normal 06/14/2024 1 0 - 13.5 HHCCT INR PPP 1.2 Normal 06/14/2024 HHCCT Anticoagulant IV HEPARIN, UNFRACTIONATED Normal 06/14/2024 HHCCT LMWH PPP Steam [employer] Fireman-aCnc 0.27 IU/mL Normal 06/14/2024 HHCCT Anticoagulant IV HEPARIN, UNFRACTIONATED Normal 06/14/2024 HHCCT LMWH PPP Steam [employer] Fireman-aCnc 0.29 IU/mL Normal 06/13/2024 HHCCT Anticoagulant IV HEPARIN, UNFRACTIONATED Normal 06/13/2024 HHCCT Prot Ur-mCnc 45.0 mg/dL Normal 06/13/2024 HHCCT Prothrombin time 14.6 seconds Above high normal 06/13/2024 1 0 - 13.5 HHCCT INR PPP 1.3 Normal 06/13/2024 HHCCT Anticoagulant IV HEPARIN, UNFRACTIONATED Normal 06/13/2024 HHCCT LMWH PPP Steam [employer] Fireman-aCnc 0.3 IU/mL Normal 06/13/2024 HHCCT Anticoagulant IV HEPARIN, UNFRACTIONATED, BEING HELD Normal 06/13/2024 HHCCT Folate SerPl-mCnc 5.2 ng/mL Below low normal 06/13/2024 7.2 - HHCCT Phosphate SerPl-mCnc 3.2 mg/dL Normal 06/13/2024 2.7 - 4. 5 HHCCT Albumin SerPl-mCnc 1.5 g/dL Below low normal 06/13/2024 3.4 - 4.8 HHCCT Folate SerPl-mCnc Specimen hemolyzed. Test not performed. Normal 06/13/2024 7.2 - HHCCT Magnesium SerPl-mCnc 1.8 mg/dL Normal 06/13/2024 1.6 - 2. 7 HHCCT Vit B12 SerPl-mCnc 1152.0 pg/mL Above high normal 06/13/2024 243 - 894 HHCCT BUN/Creat SerPl 11.0 Ratio Normal 06/13/2024 10 - 25 HH CCT Anion Gap Bld-sCnc 9.0 Normal 06/13/2024 7 - 17 HHCCT GFR/BSA.pred SerPlBld [id number] >90.0 Normal 06/13/2024 59 - HHCCT Sodium SerPl-sCnc 136.0 mmol/L Normal 06/13/2024 136 - 14 5 HHCCT Chloride SerPl-sCnc 104.0 mmol/L Normal 06/13/2024 98 - 1 07 HHCCT BUN SerPl-mCnc 8.0 mg/dL Normal 06/13/2024 8 - 21 HHCC T Creat SerPl-mCnc 0.7 mg/dL Normal 06/13/2024 0.4 - 1.1 HH CCT CO2 SerPl-sCnc 23.0 mmol/L Normal 06/13/2024 22 - 33 HH CCT Glucose SerPl-mCnc 77.0 mg/dL Normal 06/13/2024 65 - 99 HHCCT Potassium SerPl-sCnc 3.2 mmol/L Below low normal 06/13/2024 3.4 - 5.3 HHCCT Calcium SerPl-mCnc 7.5 mg/dL Below low normal 06/13/2024 8.7 - 10.5 HHCCT MCHC RBC Auto-mCnc 30.8 g/dL Normal 06/13/2024 30 - 36 HHCCT RDW RBC Auto-Rto 18.0 % Above high normal 06/13/2024 1 1.5 - 14.5 HHCCT MCH RBC Qn Auto 31.7 pg Above high normal 06/13/2024 27 - 31 HHCCT WBC num Bld Auto 12.5 Thou/uL Above high normal 06/13/2024 4 - 11 HHCCT RBC num Bld Auto 3.03 Mil/uL Below low normal 06/13/2024 4 - 5.4 HHCCT Hgb Bld-mCnc 9.6 g/dL Below low normal 06/13/2024 11.7 - 15.7 HHCCT Hct VFr Bld Auto 31.2 % Below low normal 06/13/2024 35 - 47 HHCCT Platelet num Bld Auto 333.0 Thou/uL Normal 06/13/2024 150 - 450 HHCCT PMV Bld Auto 8.5 fL Normal 06/13/2024 7.5 - 12.5 HHCCT MCV RBC Auto 103.0 fL Above high normal 06/13/2024 80 - 100 HHCCT LMWH PPP Steam [employer] Fireman-aCnc 0.56 IU/mL Normal 06/13/2024 HHCCT Anticoagulant IV HEPARIN, UNFRACTIONATED Normal 06/13/2024 HHCCT LMWH PPP Steam [employer] Fireman-aCnc 0.68 IU/mL Normal 06/12/2024 HHCCT Anticoagulant IV HEPARIN, UNFRACTIONATED Normal 06/12/2024 HHCCT LMWH PPP Steam Bo[employer] Fireman-aCnc 0.91 IU/mL Normal 06/12/2024 HHCCT Anticoagulant IV HEPARIN, UNFRACTIONATED Normal 06/12/2024 HHCCT Vancomycin SerPl-mCnc 25.0 mg/L Normal 06/12/2024 HHCCT Time of last dose Information not given Normal 06/12/2024 HHCCT LMWH PPP Steam Bo[employer] Fireman-aCnc 1.32 IU/mL Normal 06/12/2024 [facility] Anticoagulant IV HEPARIN, UNFRACTIONATED Normal 06/12/2024 [facility] LMWH PPP [employer] Fireman-aCnc 1.6 IU/mL Critically high 06/12/2024 [facility] Anticoagulant Information not given Normal 06/12/2024 [facility] aPTT PPP 27.0 seconds Normal 06/12/2024 25 - 36 [facility] Anticoagulant IV HEPARIN, UNFRACTIONATED Normal 06/12/2024 [facility] LMWH PPP [employer] Fireman-aCnc >2.0 IU/mL Critically high 06/12/2024 [facility] Anticoagulant IV HEPARIN, UNFRACTIONATED, BEING HELD Normal 06/12/2024 [facility] Ca-I SerPl-mCnc 1.04 mmol/L Below low normal 06/12/2024 1. 17 - 1.33 [facility] Delta NO CHANGE Normal 06/12/2024 - 3 [facility] Troponin T SerPl-mCnc 11.0 ng/L Normal 06/12/2024 - 15 [facility] Calcium SerPl-mCnc 6.8 mg/dL Critically low 06/12/2024 8.7 - 10.5 [facility] Chloride SerPl-sCnc 102.0 mmol/L Normal 06/12/2024 98 - 1 07 [facility] Anion Gap Bld-sCnc 8.0 Normal 06/12/2024 7 - 17 [facility] Bilirub SerPl-mCnc 0.6 mg/dL Normal 06/12/2024 0.2 - 1 [facility] Albumin SerPl-mCnc 1.5 g/dL Below low normal 06/12/2024 3.4 - 4.8 [facility] Glucose SerPl-mCnc 93.0 mg/dL Normal 06/12/2024 65 - 99 [facility] GFR/BSA.pred SerPlBld CIA-GTV-CrTDpx >90.0 Normal 06/12/2024 59 - [facility] BUN/Creat SerPl 18.0 Ratio Normal 06/12/2024 10 - 25 [facility] BUN SerPl-mCnc 9.0 mg/dL Normal 06/12/2024 8 - 21 [facility] T CO2 SerPl-sCnc 27.0 mmol/L Normal 06/12/2024 22 - 33 [facility] ALT SerPl-cCnc 13.0 U/L Normal 06/12/2024 10 - 50 [facility] T Sodium SerPl-sCnc 137.0 mmol/L Normal 06/12/2024 136 - 14 5 [facility] AST SerPl-cCnc 9.0 U/L Below low normal 06/12/2024 10 - 50 [facility] Prot SerPl-mCnc 4.5 g/dL Below low normal 06/12/2024 6.3 - 8.3 [facility] ALP SerPl-cCnc 85.0 U/L Normal 06/12/2024 32 - 122 [facility] T Creat SerPl-mCnc 0.5 mg/dL Normal 06/12/2024 0.4 - 1.1 [facility] Globulin Ser Calc-mCnc 3.0 g/dL Normal 06/12/2024 1.5 - 3.9 [facility] Potassium SerPl-sCnc 3.2 mmol/L Below low normal 06/12/2024 3.4 - 5.3 [facility] Albumin/Glob SerPl 0.5 Ratio Below low normal 06/12/2024 1 - 3 [facility] Prothrombin time 29.8 seconds Above high normal 06/12/2024 1 0 - 13.5 [facility] INR PPP 2.6 Normal 06/12/2024 [facility] Anticoagulant IV HEPARIN, UNFRACTIONATED Normal 06/12/2024 [facility] LMWH PPP [employer] Fireman-aCnc >2.0 IU/mL Critically high 06/12/2024 [facility] Anticoagulant NO ANTI COAGULANT MEDS Normal 06/12/2024 [facility] Magnesium SerPl-mCnc 1.7 mg/dL Normal 06/12/2024 1.6 - 2. 7 [facility] Delta NO PREVIOUS RESULT Normal 06/12/2024 - 3 [facility] Troponin T SerPl-mCnc 11.0 ng/L Normal 06/12/2024 - 15 [facility] Lactate SerPl-sCnc 1.7 mmol/L Normal 06/12/2024 0.5 - 1.9 [facility] Basophils/leuk NFr Bld Auto 0.3 % Normal 06/12/2024 [facility] MCHC RBC Auto-mCnc 32.2 g/dL Normal 06/12/2024 30 - 36 [facility] Eosinophil num Bld Auto 0.04 Thou/uL Normal 06/12/2024 0 - 0.7 [facility] Lymphocytes num Bld Auto 1.97 Thou/uL Normal 06/12/2024 1.5 - 4.5 [facility] RBC num Bld Auto 2.87 Mil/uL Below low normal 06/12/2024 4 - 5.4 [facility] Imm Granulocytes num Bld Auto 0.32 Thou/uL Above high normal 06/12/2024 0 - 0.1 [facility] RDW RBC Auto-Rto 17.6 % Above high normal 06/12/2024 1 1.5 - 14.5 [facility] Platelet num Bld Auto 266.0 Thou/uL Normal 06/12/2024 150 - 450 [facility] PMV Bld Auto 8.5 fL Normal 06/12/2024 7.5 - 12.5 [facility] Hgb Bld-mCnc 9.3 g/dL Below low normal 06/12/2024 11.7 - 15.7 [facility] Lymphocytes/leuk NFr Bld Auto 16.0 % Normal 06/12/2024 [facility] MCH RBC Qn Auto 32.4 pg Above high normal 06/12/2024 27 - 31 [facility] WBC num Bld Auto 12.3 Thou/uL Above high normal 06/12/2024 4 - 11 [facility] Monocytes num Bld Auto 0.6 Thou/uL Normal 06/12/2024 0.2 - 1.5 [facility] Monocytes/leuk NFr Bld Auto 4.9 % Normal 06/12/2024 [facility] Hct VFr Bld Auto 28.9 % Below low normal 06/12/2024 35 - 47 [facility] Imm Granulocytes/leuk NFr Bld Auto 2.6 % Normal 06/12/2024 [facility] Neutrophils/leuk NFr Bld Auto 75.9 % Normal 06/12/2024 [facility] Basophils num Bld Auto 0.04 Thou/uL Normal 06/12/2024 0 - 0.2 [facility] Eosinophil/leuk NFr Bld Auto 0.3 % Normal 06/12/2024 [facility] Neutrophils num Bld Auto 9.32 Thou/uL Above high normal 06/12/2024 2 - 7.5 [facility] MCV RBC Auto 101.0 fL Above high normal 06/12/2024 80 - 100 [facility] History of Medication Use Medication Directions Dispensed Refills Start Date End Date Stat potassium chloride (K-TAB) 20 MEQ CR tablet 08/05/2024 active multivitamin with minerals Tab tablet Take 1 tablet by mouth daily. 07/03/2024 active amoxicillin-clavulana te (AUGMENTIN) 875-125 MG per tablet Take 1 tablet by mouth every 12 (twelve) hours around the clock. 07/02/2024 07/17/2024 active acetaminophen (TYLENOL) 325 MG tablet Take 3 tablets (975 mg total) by mouth 4 times daily (every 6 hours) as needed for mild pain or headaches. 07/02/2024 active apixaban (ELIQUIS) 5 MG tablet Take 1 tablet (5 mg total) by mouth every 12 (twelve) hours around the clock. 07/02/2024 active diltiazem (CARDIZEM) 60 MG tablet Take 1 tablet (60 mg total) by mouth 4 (four) times a day before meals and nightly. 07/02/2024 active famotidine (PEPCID) 20 MG tablet Take 1 tablet (20 mg total) by mouth 2 (two) times a day. 07/02/2024 active metoPROLOL TARTRATE (LOPRESSOR) 25 MG tablet Take 1 tablet (25 mg total) by mouth every 12 (twelve) hours around the clock. 07/02/2024 active nystatin (MYCOSTATIN) 153215 UNIT/GM cream Apply topically 2 (two) times a day. 07/02/2024 active PANTOprazole (PROTONIX) 40 MG EC tablet Take 1 tablet (40 mg total) by mouth 2 times a day. 07/02/2024 active Vitamin D3 (CHOLECALCIFEROL) 25 MCG (1000 UT) Cap Take 1,000 Units by mouth daily. 05/31/2024 active albuterol (PROVENTIL HFA; VENTOLIN HFA) 108 (90 Base) MCG/ACT inhaler Inhale 2 puffs 4 times daily (every 6 hours) as needed for wheezing or shortness of breath. active diltiazem (CARDIZEM CD) 300 MG 24 hr capsule Take 1 capsule (300 mg total) by mouth daily. active escitalopram (LEXAPRO) 10 MG tablet Take 1 tablet (10 mg total) by mouth daily. active Problems Problem Status Onset Date Problem Type Date of Resoluti on Source Hematemesis with nausea [facility]24[facility] 2024-07-16 [facility] Psoas abscess active 2024-06-12 ProblemAct [facility] Encounters Encounter Type Encounter Reason Primary Diagnosis Location Date Ambulatory [facility] 08/20/2024 Ambulatory Colostomy status Colostomy status [facility] 08/20/2024 Ambulatory Psoas muscle abscess Psoas muscle abscess [facility] 08/16/2024 Ambulatory [facility] 08/06/2024 Ambulatory Colostomy status Colostomy status [facility] 08/06/2024 Ambulatory Colostomy status Colostomy status [facility] 07/30/2024 Ambulatory Psoas muscle abscess Psoas muscle abscess [facility] 07/26/2024 Ambulatory Colostomy status Colostomy status [facility] 07/23/2024 Ambulatory Colostomy status Colostomy status [facility] 07/23/2024 Ambulatory Colostomy status Colostomy status [facility] 07/16/2024 Ambulatory Psoas muscle abscess Psoas muscle abscess [facility] 07/16/2024 Inpatient Diverticulitis of intestine, part unspecified, without perforation or abscess without bleeding Diverticulitis of intestine, part unspecified, without perforation or abscess without bleeding [facility] 06/11/2024 Care Team Organization Name Specialty Phone Email Start Date End Da te [facility] 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
== END 2024-09-01 14:10 | disposition home or self-care (01) ==
LOC: HO.HKA 13:15
PROVIDERS: PCP Student in an Organized Health Care Education/Training Program; Visit Provider Internal Medicine Nephrology
DX: I10 Essential (primary) hypertension (principal); R60.0 Localized edema
CPT/HCPCS: 99214

== ENCOUNTER 2024-10-02 10:05 | Outpatient (REF) | payer MEDICARE, SELFPAY ==
[2024-10-02 12:09] LABS: Anion Gap 10 (12-20); Blood Urea Nitrogen 12 mg/dL (9-16); Carbon Dioxide 26 mmol/L (22-29); Chloride 110 mmol/L (96-108); Estimated Glomerular Filt Rate > 60; Magnesium 1.9 mg/dL (1.6-2.6); Potassium 4.3 mmol/L (3.3-5.1); Sodium 142 mmol/L (135-145)
[2024-10-02 12:13] LABS: Parathyroid Hormone Intact 50.9 pg/mL (8.7-77.1)
== END 2024-10-02 10:06 | disposition home or self-care (01) ==
LOC: HO.LAB 10:05
PROVIDERS: Absent Provider Internal Medicine Medical Oncology; PCP Nurse Practitioner Family; Referring Provider Nurse Practitioner Family; Visit Provider Internal Medicine Nephrology
DX: I10 Essential (primary) hypertension (principal); C50.911 Malignant neoplasm of unspecified site of right female breast; R79.89 Other specified abnormal findings of blood chemistry; R53.83 Other fatigue
CPT/HCPCS: 36415; 80051; 82565; 83735; 83970; 84520

== ENCOUNTER 2024-10-06 13:19 | Outpatient (AMB) | payer OTHER, SELFPAY ==
--- NOTE | 2024-10-06 13:34 | HO.NEPHOV ---
Vital Signs 10/06/24 13:36 Height 5 ft 2 in Weight 175 lb 8 oz BMI 32.1 BP 114/70 Blood Pressure Location Lt brachial Position Sitting Pulse 115 H Pulse Source Pulse Oximeter Pulse Oximetry (%) 96 Oxygen Delivery Method Room Air Intake Visit Reasons: 1 MO FU-[facility] Super[facility] Powdered Sugar Required: No Accompanied by: Spouse Allergies adhesive Allergy (Severe, Verified 10/06/24 13:36) Rash nystatin Allergy (Intermediate, Verified 10/06/24 13:36) Hives sulfide Allergy (Intermediate, Uncoded 06/11/24 09:11) Hives HPI Comments Details: Chela connolly a 74-year-old delightful female with H/O hypertension. She has history of inappropriate sinus tachycardia. She has past medical history significant for hypertension, bronchiectasis, solitary pulmonary nodule, osteopenia, gastric bypass, neurofibromatosis, scoliosis, chronic LBP, carpal tunnel syndrome of both hands, vitamin D deficiency, elevated PTH, and anxiety. She is on Letrozole for history of right breast cancer. She has history of gastric bypass and had 1 episode of profound hypokalemia which has been corrected. She denies any coronary artery disease, congestive heart failure, carotid stenosis, peripheral arterial disease, history of renal artery stenosis or renal dysfunction. 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 Her blood pressure control is optimal. She has lost significant weight. [facility], [facility] Medical History Levoscoliosis Osteoarthritis Dyspnea Breast cancer Pulmonary nodule Surgical History Hx of colonoscopy History of knee replacement procedure of right knee History of knee replacement procedure of left knee S/P lumpectomy, right breast Family History Father Scoliosis Gout HTN (hypertension) CVA (cerebral vascular accident) Mother Colon cancer CHF (congestive heart failure) Anxiety Depression Migraine COPD (chronic obstructive pulmonary disease) Cancer HTN (hypertension) CVA (cerebral vascular accident) Son SMA (spinal muscular atrophy) Carotid artery aneurysm Anterior horn cell disease Other Uterine cancer Social History Household Members: Spouse Both parents involved: No Caregiver staying overnight: No Housing: Apartment Are you a primary director of primary care to a significant other at home: No Do you presently have visiting nurse or other home services: No Alcohol intake: current Alcohol intake frequency: a few times a week Alcohol type: wine Patient Tobacco Use Status: Never used Tobacco e-Cigarette/Vaping Use: Never Used service: No Current occupational status: retired Cognitive needs: No Hearing needs: No Vision needs: No Review of Systems Const All systems reviewed & are unremarkable except as noted in HPI and below Physical Exam Const General: comfortable and no acute distress Orientation/consciousness: patient oriented x3 HEENT Head: Yes normocephalic Mouth: Normal oral and palatal mucosa present Eyes EOM: EOMs intact bilaterally Neck Neck: Yes supple Resp Auscultation: clear to auscultation bilaterally Cardio Jugular venous distension: no JVD Rate: regular rate GI Palpation (GI): Soft to palpation Auscultation: normal bowel sounds General: Yes no CVA tenderness Back/Spine/Pelvis Back: no CVA tenderness Skin General skin exam: no rashes or lesions noted Neuro General: patient oriented x3 and moves all extremities Extrem General: Yes no pedal edema Results Reviewed Nephrology Results: Hgb, (12.0-16.0) 11.0 g/dl L 08/26/24 WBC, (4.8-10.8) 7.0 X10*3/uL 08/26/24 Plt Count, (160-400) 401 X10*3/uL H Δ 08/26/24 Sodium, (135-145) 142 mmol/L 10/02/24 Potassium, (3.3-5.1) 4.3 mmol/L 10/02/24 Chloride, (96-108) 110 mmol/L H 10/02/24 Carbon Dioxide, (22-29) 26 mmol/L 10/02/24 BUN, (9-16) 12 mg/dL 10/02/24 Creatinine, (0.5-1.4) 0.60 mg/dL 10/02/24 Calcium, (8.4-10.2) 9.3 mg/dL Δ 08/26/24 PTH Intact, (8.7-77.1) 50.9 pg/mL 10/02/24 Urine Protein, (Neg-Trace) 30 (1+) mg/dL H 04/04/25 Assessment & Plan Assessment & Plan (1) Hypertension: Code(s): I10 - Essential (primary) hypertension Category: Medical Qualifiers: Hypertension type: primary hypertension Qualified Code(s): I10 - Essential (primary) hypertension (2) Primary hyperparathyroidism: Code(s): E21.0 - Primary hyperparathyroidism Category: Medical (3) Edema: Code(s): R60.9 - Edema, unspecified Category: Medical Qualifiers: Edema type: localized Qualified Code(s): R60.0 - Localized edema Plan Chela has hypertension which is well controlled now. She has not known to have any CAD or CHF. Her renal functions are normal. Given her pulmonary condition, she is at risk for multifocal atrial tachycardia. Her heart rate and blood pressure are very well controlled on current medication regimen. At this moment there is no recent suspect any secondary etiology for her hypertension. She maintains a very good low-sodium diet. W/U for high calcium showed an area of hyperactivity on one of the parathyroid glands. Her PTH had improved. She can continue lasix 20 mg to be taken as on a needed basis( every other day). She is going to check labs in 3 and 6 weeks. If her labs are good in 6 weeks, I shall D/C KCl and lasix. She eventually needs reversal of her ostomy. I did not make any other changes. Answered all her and her 's questions. Follow-up appointment given Orders: Orders Albumin Level 6 Weeks I10 - Essential (primary) hypertension Magnesium 6 Weeks I10 - Essential (primary) hypertension Creatinine 3 Weeks I10 - Essential (primary) hypertension, R60.0 - Localized edema Protein Creatinine Ratio, Ur 6 Weeks I10 - Essential (primary) hypertension Creatinine 6 Weeks I10 - Essential (primary) hypertension Blood Urea Nitrogen 6 Weeks I10 - Essential (primary) hypertension Electrolytes 6 Weeks I10 - Essential (primary) hypertension Calcium 6 Weeks I10 - Essential (primary) hypertension Blood Urea Nitrogen 3 Weeks I10 - Essential (primary) hypertension, R60.0 - Localized edema Electrolytes 3 Weeks I10 - Essential (primary) hypertension, R60.0 - Localized edema Albumin Level 3 Weeks I10 - Essential (primary) hypertension, R60.0 - Localized edema Coding Level of Care Code Est Pt Level 4 (83362) Diagnoses Primary hypertension I10 Hypertension type: primary hypertension Primary hyperparathyroidism E21.0 Localized edema R60.0 Edema type: localized
[2024-10-06 13:36] VITALS: BP 114/70; PULSE 115; O2SAT 96; BMI 32.1
--- OUTSIDE RECORDS SUMMARY | 2024-10-06 13:52 | XMS_ITS | Clinical Summary ---
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 Primary Care Provider Allergies Active Allergy Reactions Criticality Noted Date Comments Adhesive Rash 02/18/2011 Nystatin Hives 02/18/2011 Sulfa (Sulfonamide Antibiotics) Hives 02/07 Active Problems Problem Noted Date Diagnosed Date Knee pain 03/14/2014 Overview (04/30/2014): Knee pain; Right Anxiety 02/27/2009 Overview (04/30/2014): Anxiety Hammertoe 02/13/2009 Overview (04/30/2014): hammertoe Uncoded Second MP joint dislocation syndrome 09/2008 Overview (04/30/2014): Second MP joint dislocation syndrome Diverticular disease 02/01/2009 Overview (04/30/2014): Diverticular disease; stable, denies h/o diverticulitis. seen on colonooscopy 2004 Hiatal hernia 02/01/2009 Overview (04/30/2014): Hiatal hernia; small per pt records, seen on endoscopy 2004, pt denies symptoms Uterine leiomyoma 02/01/2009 Overview (04/30/2014): Uterine leiomyoma; multiple small, largest measuring 3cm in 2005. postmenopausal denies menses or spotting. Scoliosis deformity of spine 02/01/2009 Overview (04/30/2014): Scoliosis; thoracic Gastritis 02/01/2009 Overview (04/30/2014): Gastritis; reflux esophagitis noted in distal esophagus, chronic antral gastritis seen on egd 2004, currently denies symptoms, negative for hpylori. denies current symptoms. Osteopenia 02/01/2009 Overview (04/30/2014): Osteopenia; femoral neck tscore -1.5 2006. currently takes calcium and vit d. Abnormal mammogram 02/01/2009 Overview (04/30/2014): Abnormal Mammogram; smal hypoechoic lesion seen R breast 9 o'clock position stable and felt to be benign per mammogram 2005. History of hypertension 01/26/2009 Overview (04/30/2014): H/O Hypertension; Diagnosed 2005, on Avapro but d/c september, lost 90lbs. Colon polyp 01/26/2009 Overview (04/30/2014): Colonic polyps; guiac negative in office 2008, single small sessile polyp seen 2004, next due colonoscopy 2009 Encounters Date Type Department Care Team Description 08/04/2024 Orders Only [facility] [address] [place], [place] [phone] Homehealth, Interface MD Sho 08/03/2024 7:53 AM EDT - 08/03/2024 11:59 PM EDT Hospital Encounter [facility] [address] [place] [address] Robbin Doherty MD Discharge Disposition: Home or Self Care 08/03/2024 Transcribe Orders [facility] [address] [place] [address] Robbin Doherty MD Psoas muscle abscess (Primary Dx); Acute cor pulmonale; Essential hypertension, malignant; Hypopotassemia 07/26/2024 11:00 AM EDT - 07/26/2024 11:59 PM EDT Hospital Encounter [facility] [address] [place] [address] Robbin Doherty MD Discharge Disposition: Home or Self Care 07/26/[address] [facility] [address] [place] [address] Robbin Doherty MD Screening for unspecified condition (Primary Dx) 07/19/2024 8:46 AM EDT - 07/19/2024 11:59 PM EDT Hospital Encounter [facility] [address] [place] [address] Robbin Doherty MD Discharge Disposition: Home or Self Care 07/19/[address] [facility] [address] [place] [address] Robbin Doherty MD Psoas muscle abscess (Primary Dx); Hypopotassemia; Essential hypertension, malignant 07/16/2024 Orders Only [facility] [address] [place] [phone] Homehealth, Interface ProviderMD 07/12/2024 9:10 AM EDT - 07/12/2024 11:59 PM EDT Hospital Encounter [facility] [address] [place] [address] Robbin Doherty MD Discharge Disposition: Home or Self Care from Last 3 Months Immunizations Immunization Administration Dates Next Due Pneumococcal polysaccharide PPSV23 02/01/2007 Tdap 02/01/2007 Zoster live 01/26/2009 Family History Medical History Relation Comments Hypertension Father hypertension Stroke Father cerebrovascular accident Uncoded Family History Father substance abuse; alcoholism Colon cancer Maternal Aunt 2 colon cancer Type 2 Diabetes Maternal Aunt 3 diabetes mellitu s type 2 Coronary artery disease Maternal Grandfather cor onary artery disease ; [place] AVM Mother Congenital arter iovenous malformation Colon cancer Mother colon cancer Depression Mother depression Stroke Mother cerebrovascular accident Uncoded Family History Mother substance abuse; alcoholism Uncoded Family History Son 2 neuromusc ular disease; age 30 SMA. Relation Status Comments Father Maternal Aunt 1 Maternal Aunt 2 Maternal Aunt 3 Maternal Grandfather Mother Son 1 Son 2 Social History Tobacco Use Types Packs/Day Years Used Date Smoking Tobacco: Unknown Education Answer Date Recorded Are you interested in more education? Not on kelvin e 07/11/2022 Are you concerned about learning? Not on file 07/11/2022 No 07/11/2022 No 07/11/2022 Digital Access Answer Date Recorded No 08/04/2022 No 08/04/2022 No 08/04/2022 Reliable internet access at home? Not on file 08/04/2022 Device with a working camera? Not on file Comments Unknown Sex and Gender Information Value Date Recorded Sex Assigned at Not on file Legal Sex Female 5:51 PM EST Gender Identity Not on file Sexual Orientation Not on file Last Filed Vital Signs Vital Sign Reading Time Taken Comments Blood Pressure - - Pulse - - Temperature - - Respiratory Rate - - Oxygen Saturation - - Inhaled Oxygen Concentration - - Weight 95.3 kg (210 lb) 09/04/2022 10:08 AM EDT Height 154.9 cm (5' 1 ) 09/04/2022 10:08 AM EDT Body Mass Index 39.68 09/04/2022 10:08 AM EDT Plan of Treatment Health Maintenance Due Date Last Done Comments BLOOD PRESSURE 1949 LIPID PANEL 1949 DEPRESSION SCREENING 1961 SMOKING Hx and SMOKELESS TOBACCO SCREENING 1962 HEPATITIS C SCREENING 09/21/1967 MAMMOGRAM 1989 COLOGUARD 1994 COLONOSCOPY 1994 COLORECTAL CANCER SCREENING 1994 FIT TEST 1994 FOBT 1994 SIGMOIDOSCOPY 1994 VIRTUAL COLONOSCOPY 1994 OSTEOPOROSIS SCREENING INITIAL (ONE-TIME) 2014 Adult Td,Tdap Booster 02/01/2017 02/01/2007 COVID-19 VACCINE ( season) 2023 11/28/2022, 07/12/2022, 12/16/2021, Additional history exists ZOSTER VACCINES Completed 02/03/2019, 11/09, 01/26/2009 PNEUMOCOCCAL VACCINES (50+ years) Completed 09/23/2021, 12/21/2014, 02/01/2007 RSV VACCINE Completed 12/15/2022 HEPATITIS A VACCINES Aged Out No long er eligible based on patient's age to complete this topic HIB VACCINES Aged Out No longer eligi ble based on patient's age to complete this topic MENINGOCOCCAL VACCINES (ACWY) Aged Out No longer eligible based on patient's age to complete this topic MENINGOCOCCAL VACCINES (B) Aged Out N o longer eligible based on patient's age to complete this topic Medical Devices Not on file Procedures Procedure Name Priority Date/Time Associated Diagnosis Comments CBC AND DIFFERENTIAL Routine 08/03/2024 7:05 AM EDT Psoas muscle abscess Acute cor pulmonale Essential hypertension, malignant Hypopotassemia COMPREHENSIVE METABOLIC PANEL Routine 08/03/2024 7:05 AM EDT Psoas muscle abscess Acute cor pulmonale Essential hypertension, malignant Hypopotassemia SEDIMENTATION RATE (ESR) Routine 08/03/2024 7:05 AM EDT Psoas muscle abscess Acute cor pulmonale Essential hypertension, malignant Hypopotassemia CBC AND DIFFERENTIAL Routine 07/26/2024 7:40 AM EDT Screening for unspecified condition COMPREHENSIVE METABOLIC PANEL Routine 07/26/2024 7:40 AM EDT Screening for unspecified condition SEDIMENTATION RATE (ESR) Routine 07/26/2024 7:40 AM EDT Screening for unspecified condition CBC AND DIFFERENTIAL Routine 07/19/2024 5:40 AM EDT Psoas muscle abscess Hypopotassemia Essential hypertension, malignant COMPREHENSIVE METABOLIC PANEL Routine 07/19/2024 5:40 AM EDT Psoas muscle abscess Hypopotassemia Essential hypertension, malignant SEDIMENTATION RATE (ESR) Routine 07/19/2024 5:40 AM EDT Psoas muscle abscess Hypopotassemia Essential hypertension, malignant CBC AND DIFFERENTIAL Routine 07/12/2024 7:53 AM EDT Psoas muscle abscess COMPREHENSIVE METABOLIC PANEL Routine 07/12/2024 7:53 AM EDT Psoas muscle abscess SEDIMENTATION RATE (ESR) Routine 07/12/2024 7:53 AM EDT Psoas muscle abscess from Last 3 Months Results * (ABNORMAL) Comprehensive metabolic panel (08/03/2024 7:05 AM EDT) Only the most recent of4 resultswithin the time period is included. SODIUM 141 133 - 146 mmol/L [facility] POTASSIUM 3.0(L) 3.3 - 5.1 mmol/L [facility] CHLORIDE 102 96 - 108 mmol/L [facility] CO2 31 21 - 35 mmol/L [facility] BUN 3(L) 6 - 19 mg/dL [facility] CREATININE 0.50 0.5 - 1.5 mg/dL [facility] GLUCOSE 86 70 - 99 mg/dL [facility] ALBUMIN 2.4(L) 3.9 - 4.8 g/dL [facility] TOTAL PROTEIN 5.3(L) 6.5 - 8.0 g/dL [facility] CALCIUM 8.5 8.4 - 10.3 mg/dL [facility] ALKALINE PHOSPHATASE 87 39 - 117 U/L [facility] TOTAL BILIRUBIN <0.2 0.0 - 1.2 mg/dL [facility] AST 58(H) 0 - 37 U/L [facility] ALT 32 0 - 40 U/L [facility] GLOBULIN 2.9 1 - 4.8 g/dL [facility] EGFR 98 >59 mL/min/1.7 3m2 [facility] Comment:Estimated glomerular filtration rate calculated using the CKD-EPI refit equation. ANION GAP 11 10 - 20 mmol/L [facility] 08/03/2024 7:05 AM EDT 08/03/2024 8:11 AM EDT us Robbin Doherty MD LAB BLOOD ORDERABLES Final Resul t [facility] [address] [place] [address] * (ABNORMAL) Sedimentation rate (ESR) (08/03/2024 7:05 AM EDT) Only the most recent of4 resultswithin the time period is included. ESR 41(H) 0 - 30 mm/h [facility] 08/03/2024 7:05 AM EDT 08/03/2024 8:11 AM EDT us Robbin Doherty MD LAB BLOOD ORDERABLES Final Resul t [facility] [address] [place] [address] * (ABNORMAL) CBC and differential (08/03/2024 7:05 AM EDT) Only the most recent of4 resultswithin the time period is included. WBC 6.95 4.00 - 11.00 K/uL [facility] RBC 3.31(L) 4.00 - 5.20 M/uL [facility] HGB 10.1(L) 12.0 - 16.0 g/dL [facility] HCT 32.4(L) 36.0 - 46.0 % [facility] PLT 432 150 - 450 K/uL [facility] MCV 97.9 80.0 - 100.0 fL [facility] MCH 30.5 27.0 - 31.0 pg [facility] MCHC 31.2(L) 32.0 - 36.0 g/dL [facility] RDW 15.9(H) 11.5 - 14.5 % [facility] MPV 8.5 8.4 - 12.0 fL [facility] NRBC 0.00 0.00 /100 WBCs [facility] ABSOLUTE NRBC 0.00 0.00 K/uL [facility] DIFF METHOD Auto [facility] NEUTS 63.8 48.0 - 76.0 % [facility] LYMPHS 26.3 18.0 - 41.0 % [facility] MONOS 7.6 4.0 - 11.0 % [facility] EOS 1.3 0.0 - 5.0 % [facility] BASOS 0.4 0.0 - 1.5 % [facility] Granulocytes, immature (%) 0.6 0.0 - 0.9 % [facility] ABSOLUTE NEUTS 4.43 1.92 - 7.60 K/uL [facility] ABSOLUTE LYMPHS 1.83 0.72 - 4.10 K/uL [facility] ABSOLUTE MONOS 0.53 0.16 - 1.10 K/uL [facility] ABSOLUTE EOS 0.09 0.00 - 0.50 K/uL [facility] ABSOLUTE BASOS 0.03 0.00 - 0.15 K/uL [facility] Granulocytes, immature 0.04 0.00 - 0.09 K/uL [facility] Blood 08/03/2024 7:05 AM EDT 08/03/2024 8:11 AM EDT us Robbin Doherty MD LAB BLOOD ORDERABLES Final Resul t [address] [address] from Last 3 Months Insurance [place] A [place] [id number] [facility] MEDICARE REPLACEMENT MEDICARE PART A & B [facility] MEDICARE REPLACEMENT MEDICARE PART A & B MEDICARE PART A & B MEDICARE PART A & B [employer] MEDICARE REPLACEMENT MEDICARE PART A & B [employer] MEDICARE REPLACEMENT MEDICARE PART A & B [employer] MEDICARE REPLACEMENT MEDICARE PART A & B MEDICARE PART A & B [employer] P[employer] MEDICARE REPLACEMENT Care Teams Cooker Sulfite Relationship Specialty Start Date End Date Yvonne Ann NP PCP - General Nurse Practitioner 07/11/22 Additional Source Comments The information contained in this document represents components of the legal health record. It is not the complete legal health record.[facility]
--- OUTSIDE RECORDS SUMMARY | 2024-10-06 13:52 | XMS_ITS | Clinical Summary ---
Author Organization [facility] Address [address] [place] [address] Care Team Providers Care Coal Bagger Name Role Phone Pcp, No Primary Care [...] is Take 1 tablet by mouth daily. Active nystatin (MYCOSTATIN) 427933 UNIT/GM creamIndication s:Diverticuliti s Apply topically 2 (two) times a day. Active PANTOprazole (PROTONIX) 40 MG EC tabletIndicatio ns:Diverticulit is Take 1 tablet (40 mg total) by mouth 2 times a day. 5 Active metoPROLOL TARTRATE (LOPRESSOR) 25 MG tabletIndicatio ns:Diverticulit is Take 1 tablet (25 mg total) by mouth every 12 (twelve) hours around the clock. Active diltiazem (CARDIZEM) 60 MG tabletIndicatio ns:Diverticulit is Take 1 tablet (60 mg total) by mouth 4 (four) times a day before meals and nightly. 5 Active potassium chloride (K-TAB) 20 MEQ CR tablet 5 Active amoxicillin-cla vulanate (AUGMENTIN) 875-125 MG per tabletIndicatio ns:Psoas abscess (HCC) Take 1 tablet by mouth 2 (two) times a day. 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 Psoas abscess 06/12/2024 Hematemesis with nausea 06/11/2024 Encounters Date Type Department Care Team Description 09/09/2024 2:40 PM EDT Procedure visit [facility] Colorectal Surgery [address] [address] Nayla Soliman PA 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); Psoas abscess (HCC) 09/09/2024 Travel 08/20/2024 1:40 PM EDT Procedure visit [facility] Col[facility] Surgery [address] [address] Britany Jimenez RN 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) 08/20/2024 1:40 PM EDT Procedure visit [facility] Col[facility] Surgery [address] [address] Nayla Soliman PA 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); Psoas abscess (HCC) 08/20/2024 Travel 08/16/2024 1:30 PM EDT Telemedicine [facility] Department of Infectious Disease [address] [address] Saray Gross MD Psoas abscess (HCC) (Primary Dx) 08/06/2024 1:20 PM EDT Procedure visit [facility] Colorectal Surgery [address] [address] Nayla Soliman PA 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); Psoas abscess (HCC) 08/06/2024 Travel 08/04/2024 Orders Only [facility] [place] [address] Saray Gross MD 08/03/2024 Telephone [facility] Colorectal Surgery [address] [address] Cristiano Staton MD 07/30/2024 1:00 PM EDT Procedure visit [facility] Colorectal Surgery [address] [address] Nayla Soliman PA 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); Psoas abscess (HCC) 07/30/2024 Travel 07/27/2024 Telephone [facility] Colorectal Surgery [address] [address] Cristiano Staton MD 07/26/2024 1:15 PM EDT Office Visit [facility] Department of Infectious Disease [address] [address] Saray Gross MD Psoas abscess (HCC) (Primary Dx) 07/26/2024 Travel 07/23/2024 1:00 PM EDT Clinical Support [facility] Colorectal Surgery [address] [place] [address] Britany Jimenez RN 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) 07/23/2024 1:00 PM EDT Clinical Support [facility] Colorectal Surgery [address] [place] [address] Nayla Soliman PA 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); Psoas abscess (HCC) 07/23/2024 Travel 07/21/2024 Telephone [facility] Colorectal Surgery [address] [place] [address] Britany Jimenez RN 07/21/2024 Telephone [facility] Colorectal Surgery [address] [place] [address] Cristiano Staton MD 07/19/2024 Telephone [facility] Colorectal Surgery [address] [place] [address] Cristiano Staton MD 07/16/2024 1:00 PM EDT Clinical Support [facility] Colorectal Surgery [address] [place] [address] Britany Jimenez RN 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) 07/16/2024 1:00 PM EDT Office Visit [facility] Colorectal Surgery [address] [place] [address] Nayla Soliman PA Psoas abscess (HCC) (Primary Dx); Colostomy in place (HCC) 07/16/2024 Travel from Last 3 Months Social History Tobacco Use Types Packs/Day Years Used Date Smoking Tobacco: Never Assessed [facility] Utilities Answer Date Recorded In the past 12 months has [employer], oil, or water [employer] threatened to shut off services in your [...] any time in the past 12 m [facility], were you homeless or living in a penitentiary (including now)? No 06/14/2024 Comments No Sex and Gender Information Value Date Recorded Sex Assigned at Female 06/11/2024 7:46 PM EDT Legal Sex Female 4:36 PM EDT Gender Identity Female 06/11/2024 7:46 PM EDT Sexual Orientation Heterosexual (straight) 06/11 7:46 PM EDT Last Filed Vital Signs Vital Sign Reading Time Taken Comments Blood Pressure 122/76 09/09/2024 2:45 PM EDT Pulse 108 09/09/2024 2:45 PM EDT Temperature 35.8 C (96.5 F) 08/20/2024 1:33 PM EDT Respiratory Rate 18 09/09/2024 2:45 PM EDT Oxygen Saturation 98% 09/09/2024 2:45 PM EDT Inhaled Oxygen Concentration - - Weight 79.7 kg (175 lb 12.8 oz) 09/09/2024 2:45 PM EDT Height 154.9 cm (5' 1 ) 09/09/2024 2:45 PM EDT Body Mass Index 33.22 09/09/2024 2:45 PM EDT Plan of Treatment Upcoming Encounters Date Type Department Care Team (Late st Contact Info) Description 10/11/2024 1:00 PM EDT Telemedicine [facility] Department of Infectious Disease [place] [address] [place] [phone] Saray Gross MD [address] [facility] [address] [place], [place] [phone] 10/15/2024 11:20 AM EDT Procedure visit [facility] Colorectal Surgery [place] [address] [facility] [address] [place] [phone] Nayla Soliman PA [address] [place] [address] Health Maintenance Due Date Last Done Comments [...] WITH CONTRAST Routine 08/04/2024 1:20 PM EDT from Last 3 Months Results * CT [...] your patient to us, Isidro Garcia MD [id number] (Electronically Signed - 08/06/2024 07:33) Copy: LINDA HOLLY MD [facility] [address] [facility] [facility] [address] [place] [address] PATIENT , Narrative 08/06/2024 7:33 AM EDT [...] by: Isidro Garcia MD 08/06/2024 07:33 AM EDTWorkstation:[id number] Thank you for referring your patient to us, Isidro Garcia MD [id number] (Electronically Signed - 08/06/2024 07:33) Copy: LINDA HOLLY MD [facility] [address] [place] [address] [place] [address] PATIENT , us Saray Gross MD IMG LEGACY PROCEDURES Final Result from Last 3 Months Insurance [facility] MEDICARE MEDICARE PART A & B [facility] MEDICARE [employer] MGD MEDICARE Advance Directives Documents on File Type Date Recorded Patient Fraud Prevention Analyst Expl anation Advance Directive-Scan 08/06/2024 CT AB DOMEN AND PELVIS W/ CONTRAST RESULTS TO ID Advance Directive-Scan 07/26/[address] VISIT SUMMARY/LABS * Full Code (Latest Code Status on File) Date Activated Date Inactivated Comments 06/12/2024 1:16 AM Question Answer Comments Decision Thoroughly Discussed with: Patient Care Teams Coal Bagger Relationship Specialty Start Date End Date Pcp, No PCP - General 07/16/24
--- OUTSIDE RECORDS SUMMARY | 2024-10-06 13:53 | XMS_ITS | Patient Health Record ---
Author Organization [facility] Address [address] [place] [address] Care Team Providers Care Supply Planner Name Role Phone Mónica HOUSEKEEPING MANAGER, Ana Primary Care Provider Unavail able Aziza Maria Unavailable [phone] Reason For Referral No Information Encounters Encounter Location Date Provider Diagnosis [facility] [address] 05/03/2024 Aziza Maria Plan Of Treatment No Information Insurance Providers Payer Name Payer Address Payer Phone Subscriber Number Group Number Insured Name Patient Relationship to Insured Coverage Start Date Coverage End Date [employer] Claims [address] [address] [place] [address] [id number] Chela Cintron Self - patient is the insured
== END 2024-10-06 14:05 | disposition home or self-care (01) ==
LOC: HO.HKA 13:20
PROVIDERS: PCP Student in an Organized Health Care Education/Training Program; Visit Provider Internal Medicine Nephrology
DX: I10 Essential (primary) hypertension (principal); E21.0 Primary hyperparathyroidism; R60.0 Localized edema
CPT/HCPCS: 99214

== ENCOUNTER 2024-11-01 08:17 | Outpatient (REF) | payer OTHER, SELFPAY ==
--- OUTSIDE RECORDS SUMMARY | 2024-11-01 08:38 | XMS_ITS | Clinical Summary ---
Author Organization [facility] Address [address] [place] [phone] Phone Care Team Providers Care Assistant Statistician Name Role Phone Yvonne Ann CUSTOMER SERVICE VOICE Primary Care Provider Allergies Active Allergy Reactions [...] Department Care Team Description 08/04/2024 Orders Only [facility] [address] [place], [place] [phone] Homehealth, Interface MD Sho 08/03/2024 7:53 AM EDT - 08/03/2024 11:59 PM EDT Hospital Encounter [facility] [address] [place] [address] Robbin Doherty MD Discharge Disposition: Home or Self Care 08/03/2024 Transcribe Orders [facility] Specimen Processing [address] [place] [address] Robbin Doherty MD Psoas muscle abscess (Primary Dx); Acute cor pulmonale; Essential hypertension, malignant; Hypopotassemia from Last 3 Months Immunizations Immunization Administration [...] Maternal Grandfather cor onary artery disease ; MD AVM Mother Congenital arter iovenous malformation Colon [...] TOBACCO SCREENING 1962 HEPATITIS C SCREENING 09/21/1967 COLOGUARD 1994 COLONOSCOPY 1994 COLORECTAL CANCER SCREENING [...] Acute cor pulmonale Essential hypertension, malignant Hypopotassemia from Last 3 Months Results * (ABNORMAL) Comprehensive metabolic panel (08/03/2024 7:05 AM EDT) SODIUM 141 133 - 146 mmol/L [facility] POTASSIUM 3.0(L) 3.3 - 5.1 mmol/L [facility] CHLORIDE 102 96 - 108 mmol/L [facility] CO2 31 21 - 35 mmol/L [facility] BUN 3(L) 6 - 19 mg/dL [facility] CREATININE 0.50 0.5 - 1.5 mg/dL [facility] GLUCOSE 86 70 - 99 mg/dL [facility] ALBUMIN 2.4(L) 3.9 - 4.8 g/dL [facility] TOTAL PROTEIN 5.3(L) 6.5 - 8.0 g/dL [facility] CALCIUM 8.5 8.4 - 10.3 mg/dL [facility] ALKALINE PHOSPHATASE 87 39 - 117 U/L [facility] TOTAL BILIRUBIN <0.2 0.0 - 1.2 mg/dL [facility] AST 58(H) 0 - 37 U/L [facility] ALT 32 0 - 40 U/L [facility] GLOBULIN 2.9 1 - 4.8 g/dL [facility] EGFR 98 >59 mL/min/1.7 3m2 [facility] Comment:Estimated glomerular filtration rate calculated using the CKD-EPI refit equation. ANION GAP 11 10 - 20 mmol/L [facility] 08/03/2024 7:05 AM EDT 08/03/2024 8:11 AM EDT us Robbin Doherty MD LAB BLOOD ORDERABLES Final Resul t Performing Organization Address City/[facility]/ZIP Co de Phone Number [address] [address] * (ABNORMAL) Sedimentation rate (ESR) (08/03/2024 7:05 AM EDT) ESR 41(H) 0 - 30 mm/h [facility] 08/03/2024 7:05 AM EDT 08/03/2024 8:11 AM EDT us Robbin Doherty MD LAB BLOOD ORDERABLES Final Resul t [address] [address] * (ABNORMAL) CBC and differential (08/03/2024 7:05 AM EDT) WBC 6.95 4.00 - 11.00 K/uL [facility] RBC 3.31(L) 4.00 - 5.20 M/uL [facility] HGB 10.1(L) 12.0 - 16.0 g/dL [facility] HCT 32.4(L) 36.0 - 46.0 % [facility] PLT 432 150 - 450 K/uL [facility] MCV 97.9 80.0 - 100.0 fL [facility] MCH 30.5 27.0 - 31.0 pg [facility] MCHC 31.2(L) 32.0 - 36.0 g/dL [facility] RDW 15.9(H) 11.5 - 14.5 % [facility] MPV 8.5 8.4 - 12.0 fL [facility] NRBC 0.00 0.00 /100 WBCs [facility] ABSOLUTE NRBC 0.00 0.00 K/uL [facility] DIFF METHOD Auto [facility] NEUTS 63.8 48.0 - 76.0 % [facility] LYMPHS 26.3 18.0 - 41.0 % [facility] MONOS 7.6 4.0 - 11.0 % [facility] EOS 1.3 0.0 - 5.0 % [facility] BASOS 0.4 0.0 - 1.5 % [facility] Granulocytes, immature (%) 0.6 0.0 - 0.9 % [facility] ABSOLUTE NEUTS 4.43 1.92 - 7.60 K/uL [facility] ABSOLUTE LYMPHS 1.83 0.72 - 4.10 K/uL [facility] ABSOLUTE MONOS 0.53 0.16 - 1.10 K/uL [facility] ABSOLUTE EOS 0.09 0.00 - 0.50 K/uL [facility] ABSOLUTE BASOS 0.03 0.00 - 0.15 K/uL [facility] Granulocytes, immature 0.04 0.00 - 0.09 K/uL [facility] Blood 08/03/2024 7:05 AM EDT 08/03/2024 8:11 AM EDT us Robbin Doherty MD LAB BLOOD ORDERABLES Final Resul t [address] [address] from Last 3 Months Insurance MEDICARE PART A & B [employer] PPO MEDICARE REPLACEMENT MEDICARE PART A & B [employer] PPO MEDICARE REPLACEMENT MEDICARE PART A & B MEDICARE PART A & B Member Subscriber Plan / Payer ( fective 2014-Present) Name:Kanika Josephti Member ID:[id number] Relation to Subscriber:Self Name:Chela Joseph Subscriber ID:[id number] Payer ID:[id number] Group ID:Not on file Type:Medicare Address: [employer] [address] MEDICARE PART A & B [employer] PPO MEDICARE REPLACEMENT MEDICARE PART A & B [employer] PPO MEDICARE REPLACEMENT [facility]ICARE PART [facility] & [facility] MEDICARE PART A & B MEDICARE PART A & B [employer] PPO MEDICARE REPLACEMENT Care Teams Assistant Statistician Relationship Specialty Start Date End Date Yvonne Ann NP PCP - General Nurse Practitioner 07/11/22 Additional Source Comments The information contained in this document represents components of the legal health record. It is not the complete legal health record.[facility]
--- OUTSIDE RECORDS SUMMARY | 2024-11-01 08:38 | XMS_ITS | Clinical Summary ---
Author Organization [facility] Address [address] [place] [address] Care Team Providers Care Cyanide Case Hardener Name Role Phone Pcp, No Primary Care [...] by mouth 2 (two) times a day. Active multivitamin with minerals Tab tabletIndicatio ns:Diverticulit is Take 1 tablet by mouth daily. Active nystatin (MYCOSTATIN) 088947 UNIT/GM creamIndication s:Diverticuliti s Apply topically 2 (two) times a day. Active PANTOprazole (PROTONIX) 40 MG EC tabletIndicatio ns:Diverticulit is Take 1 tablet (40 mg total) by mouth 2 times a day. Active diltiazem (CARDIZEM) 60 MG tabletIndicatio ns:Diverticulit is Take 1 tablet (60 mg total) by mouth 4 (four) times a day before meals and nightly. Active potassium chloride (K-TAB) 20 MEQ CR tablet Active furosemide (LASIX) 20 MG tablet TAKE 1 TABLET BY MOUTH DAILY NEEDED FOR SWELLING Active metoPROLOL SUCCINATE (TOPROL-XL) 25 MG 24 hr tablet Take 1 tablet (25 mg total) by mouth daily. Active metoPROLOL TARTRATE (LOPRESSOR) 25 MG tabletIndicatio ns:Diverticulit is Take 1 tablet (25 mg total) by mouth every 12 (twelve) hours around the clock. 10/16/19 Discontinu ed(Dose adjustment ) amoxicillin-cla vulanate (AUGMENTIN) 875-125 MG per tabletIndicatio ns:Psoas abscess (HCC) Take 1 tablet by mouth 2 (two) times a day. 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 Psoas abscess 06/12/2024 Hematemesis with nausea 06/11/2024 Encounters Date Type Department Care Team Description 10/15/2024 11:20 AM EDT Procedure visit [facility] Colorectal Surgery [address] [id number] Nayla Soliman PA 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); Psoas abscess (HCC) 10/15/2024 Travel 10/14/2024 Scanned Document [facility] Colorectal Surgery [address] [place] [address] Nayla Soliman PA 10/11/2024 1:00 PM EDT Telemedicine [facility] Department of Infectious Disease [address] [place] [address] Saray Gross MD Psoas abscess (HCC) (Primary Dx) 10/11/2024 Travel 09/09/2024 2:40 PM EDT Procedure visit [facility] Colorectal Surgery [address] [place] [address] Nayla Soliman PA 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); Psoas abscess (HCC) 09/09/2024 Travel 08/20/2024 1:40 PM EDT Procedure visit [facility] Colorectal Surgery [address] [place] [address] Britany Jimenez RN 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) 08/20/2024 1:40 PM EDT Procedure visit [facility] Colorectal Surgery [address] [place] [address] Nayla Soliman PA 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); Psoas abscess (HCC) 08/20/2024 Travel 08/16/2024 1:30 PM EDT Telemedicine [facility] Department of Infectious Disease [address] [place] [address] Saray Gross MD Psoas abscess (HCC) (Primary Dx) 08/06/2024 1:20 PM EDT Procedure visit [facility] Colorectal Surgery [address] [place] [address] Nayla Soliman PA 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); Psoas abscess (HCC) 08/06/2024 Travel 08/04/2024 Orders Only [facility] [address] [facility] [place] [address] Saray Gross MD 08/03/2024 Telephone [facility] Colorectal Surgery [place] [address] [facility] [address] [place] [phone] Cristiano Staton MD from Last 3 Months Social History Tobacco Use Types Packs/Day Years Used Date Smoking Tobacco: Never Assessed [facility] Utilities Answer Date Recorded In the past 12 months has th e electric, gas, oil, or water company threatened to shut off services in your [...] any time in the past 12 [facility], were you homeless or living in a chcf (including now)? No 06/14/2024 Comments No Sex and Gender Information Value Date Recorded Sex Assigned at Female 06/11/2024 7:46 PM EDT Legal Sex Female 4:36 PM EDT Gender Identity Female 06/11/2024 7:46 PM EDT Sexual Orientation Heterosexual (straight) 06/11 7:46 PM EDT Last Filed Vital Signs Vital Sign Reading Time Taken Comments Blood Pressure 124/76 10/15/2024 11:29 AM EDT Pulse 111 10/15/2024 11:29 AM EDT Temperature 35.8 C (96.5 F) 10/15/2024 11:29 AM EDT Respiratory Rate 18 09/09/2024 2:45 PM EDT Oxygen Saturation 96% 10/15/2024 11:29 AM EDT Inhaled Oxygen Concentration - - Weight 81.2 kg (179 lb) 10/15/2024 11:29 AM EDT Height 154.9 cm (5' 1 ) 09/09/2024 2:45 PM EDT Body Mass Index 33.82 09/09/2024 2:45 PM EDT Plan of Treatment Upcoming Encounters Date Type Department Care Team (Late st Contact Info) Description 11/19/2024 11:20 AM EDT Procedure visit [facility] Colorectal Surgery [address] [phone] Nayla Soliman PA [address] [place] [address] Health Maintenance Due Date Last Done Comments [...] Procedure Name Priority Date/Time Associated Diagnosis Comments C-REACTIVE PROTEIN Routine 10/08/2024 11 :47 AM EDT Psoas abscess (HCC) ERYTHROCYTE SEDIMENTATION RATE (ESR) Routine 10/08/2024 11:47 AM EDT Psoas abscess (HCC) COMPLETE BLOOD COUNT, WITH DIFFERENTIAL Routine 10/08/2024 11:47 AM EDT Psoas abscess (HCC) CT ABD AND PELVIS WITH CONTRAST Routine 08/04/2024 1:20 PM EDT from Last 3 Months Results * (ABNORMAL) Complete Blood Count, with Differential (10/08/2024 11:47 AM EDT) White Blood Cell Count 7.9 3.8 - 10.8 Thousand/ uL [facility] Red Blood Cell Count 4.10 3.80 - 5.10 Million/u L [facility] Hemoglobin 12.1 11.7 - 15.5 g/dL [facility] Hematocrit 39.3 35.0 - 45.0 % [facility] MCV 95.9 80.0 - 100.0 fL [facility] MCH 29.5 27.0 - 33.0 pg [facility] MCHC 30.8(L) 32.0 - 36.0 g/dL [facility] Comment: For adults, a slight decrease in the calculated MCHC value (in the range of 30 to 32 g/dL) is most likely not clinically significant; however, it should be interpreted with caution in correlation with other red cell parameters and the patient's clinical condition. RDW 12.8 11.0 - 15.0 % [facility] Platelet Count 337 140 - 400 Thousand/ uL [facility] MPV 9.1 7.5 - 12.5 fL [facility] Abs Neutrophils Auto 5,143 1,500 - 7,800 cells/uL [facility] Abs Lymphocytes Auto 1,928 850 - 3,900 cells/uL [facility] Abs Monocytes Auto 600 200 - 950 cells/uL [facility] Abs Eosinophils Auto 198 15 - 500 cells/uL [facility] Abs Basophils Auto 32 0 - 200 cells/uL [facility] Neutrophils Auto 65.1 % [facility] Lymphocytes Auto 24.4 % [facility] Monocytes Auto 7.6 % [facility] Eosinophils Auto 2.5 % [facility] Basophils Auto 0.4 % [facility] Blood Blood specimen / Unknown 10/08/2024 11:47 AM EDT 10/08/2024 11:47 AM EDT Narrative [facility] - 10/09/2024 12:53 AM EDT AN UPDATE OR CORRECTION HAS BEEN MADE TO NAME us Saray Gross MD LAB BLOOD ORDERABLES Final Result Performing Organization Address [facility] de Phone Number [employer] [address] [place] [phone] * (ABNORMAL) Erythrocyte Sediment Rate (ESR) (10/08/2024 11:47 AM EDT) [facility] Erythrocyte Sediment Rate (ESR) 33(H) < OR = 30 mm/h [facility] Blood Blood specimen / Unknown 10/08/2024 11:47 AM EDT 10/08/2024 11:47 AM EDT Narrative [facility] - 10/09/2024 12:53 AM EDT AN UPDATE OR CORRECTION HAS BEEN MADE TO NAME Result Meir Gross MD LAB BLOOD ORDERABLES Final Result Performing Organization Address [facility] de Phone Number [facility] [address] [place] [phone] * C-Reactive Protein (10/08/2024 11:47 AM EDT) [facility] C-Reactive Protein 4.6 <8.0 mg/L [facility] Blood Blood specimen / Unknown 10/08/2024 11:47 AM EDT 10/08/2024 11:47 AM EDT Narrative [facility] - 10/09/2024 12:53 AM EDT AN UPDATE OR CORRECTION HAS BEEN MADE TO NAME us Saray Gross MD LAB BLOOD ORDERABLES Final Result Performing Organization Address City/State/[facility] Co de Phone Number [employer] [address] [place] [phone] * CT ABD AND PELVIS WITH CONTRAST [...] your patient to us, Isidro Garcia MD [phone] (Electronically Signed - 08/06/2024 07:33) Copy: LINDA HOLLY MD [facility] [address] [place], [place] [phone] PATIENT , Narrative 08/06/2024 7:33 AM EDT [...] by: Isidro Garcia MD 08/06/2024 07:33 AM EDTWorkstation:[id number] Thank you for referring your patient to us, Isidro Garcia MD [phone] (Electronically Signed - 08/06/2024 07:33) Copy: LINDA HOLLY MD [facility] [address] [place] [address] PATIENT , us Saray Gross MD IMG LEGACY PROCEDURES Final Result from Last 3 Months Insurance [place] [facility] [place] [employer] MEDICARE [employer] MEDICARE Advance Directives Documents on File Type Date Recorded Patient Planer Setup Operator Expl anation Advance Directive-Scan 08/06/2024 CT AB DOMEN AND PELVIS W/ CONTRAST RESULTS TO ID Advance Directive-Scan 07/26/[address] VISIT SUMMARY/LABS * Full Code (Latest Code Status on File) Date Activated Date Inactivated Comments 06/12/2024 1:16 AM Question Answer Comments Decision Thoroughly Discussed with: Patient Care Teams Cyanide Case Hardener Relationship Specialty Start Date End Date Pcp, No PCP - General 07/16/24
--- OUTSIDE RECORDS SUMMARY | 2024-11-01 08:39 | XMS_ITS | Patient Health Record ---
Author Organization [facility] Address [address] [place] [address] Care Team Providers Care Rotary Lithographic Press Operator Name Role Phone Mónica ENGLISH ADJUNCT FACULTY, Ana Primary Care Provider Unavail able Aziza Maria Unavailable [phone] Reason For Referral No Information Encounters Encounter Location Date Provider Diagnosis [facility] [phone] 05/03/2024 Aziza Maria Plan Of Treatment No Information Insurance Providers Payer Name Payer Address Payer Phone Subscriber Number Group Number Insured Name Patient Relationship to Insured Coverage Start Date Coverage End Date [employer] [address] [address] [place] [address] [phone] [id number] Chela Cintron Self - patient is the insured
[2024-11-01 09:31] LABS: Albumin Level 4.0 g/dL (3.5-5.0); Anion Gap 15 (12-20); Blood Urea Nitrogen 15 mg/dL (9-16); Calcium 9.3 mg/dL (8.4-10.2); Carbon Dioxide 27 mmol/L (22-29); Chloride 105 mmol/L (96-108); Estimated Glomerular Filt Rate > 60; Magnesium 1.8 mg/dL (1.6-2.6); Potassium 3.9 mmol/L (3.3-5.1); Sodium 143 mmol/L (135-145)
[2024-11-01 10:10] LABS: Parathyroid Hormone Intact 94.0 pg/mL (8.7-77.1)
[2024-11-01 10:21] LABS: Protein/Creatinine Ratio, Ur 0.11 (<0.2); Total Protein Urine Random 23 mg/dL (<12)
== END 2024-11-01 08:18 | disposition home or self-care (01) ==
LOC: HO.LAB 08:17
PROVIDERS: Absent Provider Internal Medicine Nephrology; PCP Nurse Practitioner Family; Visit Provider Nurse Practitioner Family
DX: I10 Essential (primary) hypertension (principal)
CPT/HCPCS: 36415; 80051; 82040; 82310; 82565; 82570; 83735; 83970; 84156; 84520

== ENCOUNTER 2024-11-16 09:17 | Outpatient (AMB) | payer OTHER, SELFPAY ==
--- OUTSIDE RECORDS SUMMARY | 2024-05-10 10:00 | XMS_ITS ---
Author Organization [facility] [place] Address [address] [place] [address] [place] [address] Care Team Providers Care Industrial Electrician Name Role Phone Mónica ICT BUSINESS DEVELOPMENT MANAGER, Ana Primary Care Provider Unavail able Aziza Maria Unavailable [phone] Encounters Encounter Location Date Provider Diagnosis [address] [place] [address] 05/10/2024 Aziza Maria Plan Of Treatment No Information Progress Notes * Sebastian BEJARANOOB:[birth year]07 (74 yo F)Acc No.[id number]:05/10/2024 Progress Notes Patient: Chela WEST Provider: Aiden Maria DPM :1950 A ge:73 Y S ex:Female Date:05/10/2024 Address:[address] [place] [address] [address], [facility] [place] Pcp:Ana Sales NP Subjective: * Chief Complaints: [...] Date: 05/10/2024 Generated for Tamiko cruz/Ritesh/Gloriaitting on: 11/16/2024 10:43 AM EDT
--- NOTE | 2024-11-16 09:26 | MHC.PC.OV ---
Vital Signs 11/16/24 09:37 11/16/24 10:08 Height 5 ft 1 in Weight 179 lb 8 oz BMI 33.9 BP 152/86 H 150/80 H Blood Pressure Location Rt brachial Rt brachial Position Sitting Sitting Respiration 18 Pulse 97 100 Pulse Source Pulse Oximeter Auscultation Temp 97.6 F Temp Source Oral Pulse Oximetry (%) 98 Oxygen Delivery Method Room Air Intake Visit Reasons: CPE Intake Note: patient here for CPE Ending Machine Operator Required: No Is last menstrual period known: No Post menopausal: No Patient : No Allergies adhesive Allergy (Severe, Verified 11/16/24 13:52) Rash sulfide Allergy (Intermediate, Uncoded 11/16/24 13:52) Hives Medication List - Last Reconciled 11/16/24 by Wesley Sales CNP albuterol sulfate 90 mcg/actuation 2 inhalations inhalation Q6H PRN 30 days apixaban (Eliquis DVT-PE Treat 30D Start) 2 Tabs twice a day for 10 days then 1 tablet twice a day. apixaban (Eliquis) 5 mg PO BID cholecalciferol (vitamin D3) 25 mcg PO DAILY 90 days diltiazem HCl CD (Cardizem CD) 300 mg PO DAILY furosemide 20 mg PO DAILY PRN metoprolol succinate ER 25 mg PO DAILY multivitamin 1 tab PO DAILY nystatin (Nystop) 1 appl topical BID potassium chloride ER (K-Tab) 20 mEq PO DAILY Tobacco use date assessed: 11/16/24 Fall risk assessment: 2 + Falls in past year Last assessed Fall Risk: 11/16/24 Dental Screening Dental Screen Date: 11/16/24 Did you have a dental visit in the last 12 months?: Yes Did you have a dental problem in the last 6 months where you did not have access to dental care?: No Was dental information given to patient?: Patient has dentist HPI HPI Comments History of Present Illness Details 74-year-old female, accompanied by her , presents for an extended physical exam. She admits to taking her medications as prescribed without adverse reactions. She is on Letrozole for history of right breast cancer. She notes that her home BP average 130/80. She has a follow-up appointment with cardiology today. She notes that [facility] for multiple issues including plueral effusion, psoas abscess, perforated diverticulitis (dc'd with colostomy to left lower abd). She was discharged in rehab where she spent about 5 weeks. She notes that she feels better now. Acute issue(s) - None Past Medical History - She has past medical history significant for hypertension, bronchiectasis, solitary pulmonary nodule, cataract both eye, osteopenia, gastric bypass, neurofibromatosis, scoliosis, chronic LBP, carpal tunnel syndrome of both hands, vitamin D deficiency, elevated PTH, right breast cancer, and anxiety. Social History - Nonsmoker. Does not vape. Drinks occasionally. Denies recreational drug use - Has been making healthy dietary choices. Walks sometimes. Generally sleep well Health maintenance - Last eye exam was in 03/2024 with [facility] Encouraged to sign a release for her PCP to obtain her ophthalmology record - Last dental visit was in 03/2024. She has a following appt. in January - Last Tdap was in 11/06/2023 - Update on shingles and pneumonia vaccines - Up-to-date on the flu vaccine - Last pap smear test was in 2010. No longer performs Pap smear test - Last mammogram was with [facility] in 04/2024: normal. - Last colonoscopy was in 11/2023: Benign polyps. Follow-up recommended in 5 years - Last dexa scan was in 05/22/2023: Osteopenia Specialists - [facility] for carpal tunnel syndrome, chronic low back pain, and chronic left hip pain - [facility], Oncology/Hematology, Pulmonology, Nephrology - [facility] Gastroenterology - [facility] Medical History Levoscoliosis Osteoarthritis Dyspnea Breast cancer Pulmonary nodule Surgical History History of thoracentesis History of endoscopy Hx of colonoscopy History of knee replacement procedure of right knee History of knee replacement procedure of left knee S/P lumpectomy, right breast Family History Father Scoliosis Gout HTN (hypertension) CVA (cerebral vascular accident) Mother Colon cancer CHF (congestive heart failure) Anxiety Depression Migraine COPD (chronic obstructive pulmonary disease) Cancer HTN (hypertension) CVA (cerebral vascular accident) Son SMA (spinal muscular atrophy) Carotid artery aneurysm Anterior horn cell disease Other Uterine cancer Social History Household Members: Spouse Both parents involved: No Caregiver staying overnight: No Housing: Apartment Are you a primary child care centre director to a significant other at home: No Do you presently have visiting nurse or other home services: No Alcohol intake: current Alcohol intake frequency: a few times a week Alcohol type: wine Patient Tobacco Use Status: Never used Tobacco e-Cigarette/Vaping Use: Never Used Second Hand Smoke Exposure: No service: No Current occupational status: retired Current occupational exposures/hazards: No Cognitive needs: No Hearing needs: No Vision needs: No Questionnaire PHQ-9 Over the last 2 weeks, how often have you been bothered by any of the following problems? 1. Little interest or pleasure in doing things: not at all 2. Feeling down, depressed, or hopeless: not at all 3. Trouble falling or staying asleep, or sleeping too much: several days 4. Feeling tired or having little energy: several days 5. Poor appetite or overeating: not at all 6. Feeling bad about yourself - or that you are a failure or have let yourself or your family down: not at all 7. Trouble concentrating on things, such as reading the newspaper or watching television: not at all 8. Moving or speaking so slowly that other people could have noticed. Or the opposite - being so fidgety or restless that you have been moving around a lot more than usual: several days 9. Thoughts that you would be better off or of hurting yourself in some way: not at all Total score: 3 Depression Screening Interpretation: Negative Depression Screening Done: Yes 43256 - PHQ-9 Billing: Yes Source: Developed by Drs. Chinmay Pedroza, Brigid Langston, Lucas Feng and colleagues, with an educational chirs from [employer]. Thrive Questionnaire Date Thrive assessed: 06/05/24 I am a: Patient What is your living situation today?: I have a steady place to live Within the past 12 months, did the food you bought not last and you didn't have the money to get more?: Never true Within the past 12 months, did you worry whether your food would run out before you got money to buy more?: Never true Do you have trouble paying for medicines?: No Do you have trouble getting transportation to medical appointments?: No Do you have trouble paying your heating and electricity bill?: No Do you have trouble taking care of your child, family member or friend?: No Do you have trouble with day-to-day activities such as bathing, preparing meals, shopping, managing finances, etc.?: Yes Are you currently unemployed and looking for a job?: No Are you interested in more education?: No Please select the resources that you would like help with: None Currently or been in a relationship where the following occur: No concerns reported THRIVE Score: 0 AUDIT C Alcohol Use Questionnaire (AUDIT-C) 1. How often do you have a drink containing alcohol?: Monthly or less 2. How many drinks containing alcohol do you have on a typical day when you are drinking?: 1 or 2 3. How often do you have six or more drinks on one occasion?: Never Total Score: 1 Score Reviewed/Action Taken: Yes DAVID-7 AMB Questionnaire DAVID-7 Date DAVID - 7 assessed: 11/16/24 Feeling nervous, anxious, or on edge: 0 = Not at all Not being able to stop or control worryin = Not at all Worrying too much about different things: 0 = Not at all Trouble relaxin = Not at all Being so restless that it is hard to sit still: 0 = Not at all Becoming easily annoyed or irritable: 0 = Not at all Feeling afraid as if something awful might happen: 0 = Not at all Total DAVID-7 score (0-4 normal; 5-9 mild; 10-14 moderate; 15-21 severe): 0 Source: Developed by Drs. Chinmay Pedroza, Brigid Langston, Lucas Feng and colleagues, with an educational chris from [employer]. DAVID-7 Assessment Billing DAVID-7 Assessment Tool: DAVID-7 Assessment 98841 ACT Questionnaire In the past 4 weeks, how much of the time did your asthma keep you from getting as much done at work, school or at home?: None of the time During the past 4 weeks, how often have you had shortness of breath?: Not at all During the past 4 weeks, how often did your asthma symptoms wake you up at night or earlier than usual in the morning?: Not at all During the past 4 weeks, how often have you had to use your rescue inhaler or nebulizer medication?: Not at all How would you rate your asthma control during the past 4 weeks?: Completely controlled Score: 25 Review of Systems Const Details: Denies chills, Denies fatigue, Denies fever(s), Denies headache(s) and Denies weakness HEENT Denies change in vision, Denies dizziness, Denies headache(s), Denies hearing loss, Denies nasal congestion, Denies sinus pain, Denies sinus pressure and Denies sore throat Card Denies chest pain, Denies lightheadedness, Denies dyspnea and Denies other (palpitations) Resp Denies cough, Denies dyspnea and Denies wheezing GI Denies abdominal pain, Denies melena, Denies hematochezia, Denies change in bowel habits, Denies dyspepsia and Denies nausea Denies hematuria and Denies dysuria Musc Reports abnormal gait, Denies myalgias, Denies arthralgias, Denies numbness and Denies tingling Skin/Breast Denies rash, Denies unusual bruising and Denies wounds Neuro Reports abnormal gait, Denies dizziness, Denies headache(s), Denies memory loss, Denies numbness, Denies Sensory deficit (Neuro), Denies tingling and Denies weakness Psych Denies anxiety, Denies depression and Denies memory loss Endo Denies cold intolerance, Denies fatigue, Denies heat intolerance, Denies polydipsia and Denies polyuria Robert/Lymph Denies easy bleeding and Denies easy bruising Aller/Immun Denies wheezing Physical exam (Primary Care) Vital Signs: Last Vital Signs Temp 97.6 F 11/16/24 09:37 Pulse 100 11/16/24 10:08 Resp 18 11/16/24 09:37 BP 150/80 H 11/16/24 10:08 Pulse Ox 98 11/16/24 09:37 Oxygen Delivery Method Room Air 11/16/24 09:37 BMI result Body Mass Index 33.9 Tobacco/Smoking Status: Tobacco use Status Tobacco use date assessed 11/16/24 11/16/24 09:46 Patient Tobacco Use Status Never used Tobacco 09/09/25 09:27 e-Cigarette/Vaping Use Never Used 11/16/24 09:27 PHQ-9: PHQ-9 Score PHQ-9: Total score 3 11/16/24 13:27 Depression Screening Interpretation: Negative Thrive Assessment: Date of Thrive Assessment Date Thrive assessed 06/05/24 11/16/24 09:27 Currently or been in a relationship where the following occur: No concerns reported Const Other: General: no acute distress, well developed, alert and awake Nutritional Appearance: well nourished Orientation/consciousness: patient oriented x3 HENMT Head: Yes normocephalic and Yes atraumatic Ears: hearing grossly normal bilaterally and TM's normal bilaterally General nose exam: Normal external nose present and Normal nares present Mouth: Normal oral and palatal mucosa present and moist mucous membranes Teeth and gingiva: dentition normal Throat: Yes oropharynx normal Eyes Pupils: Equal, round and reactive pupils present and Pupil accommodation reflex normal EOM: EOMs intact bilaterally Neck Neck: Yes normal visual inspection, Yes no lymphadenopathy and Yes trachea midline Thyroid: Thyroid normal Carotids: no bruits Lymphatic: no lymphadenopathy noted Chest Chest palpation & inspection: normal inspection of the chest Resp Effort & Inspection: normal respiratory effort Auscultation: clear to auscultation bilaterally Cardio Rate: regular rate Rhythm: regular rhythm Heart sounds: S1 normal heart sound present, S2 normal heart sound present, no gallops, no murmurs and no rubs Bruits: no abdominal aortic bruits and no carotid bruits GI Palpation (GI): No Abdominal aortic bruit present, Soft to palpation, nontender, No hepatosplenomegaly present and No Rebound tenderness present Auscultation: normal bowel sounds General: Yes no CVA tenderness Back/Spine/Pelvis Back: no CVA tenderness Cervical Spine: cervical ROM normal and No Cervical spine tenderness Thoracic/Lumbar Spine: thoraco-lumbar ROM normal, No pain with thoraco-lumbar ROM, No thoracic spinal tenderness and No lumbar spinal tenderness Skin General: warm and dry. Normal skin color. Normal skin turgor Lesions: no lesions Rashes: no rashes Trauma: no lacerations or abrasions Wounds: no wounds Nails: normal Neuro General: patient oriented x3, gait slightly unsteady and CN's II-XI intact bilaterally Cranial nerves: Yes Equal, round and reactive pupils present Cognition (Neuro): normal cognition Gait exam (Neuro): Slightly unsteady gait present Motor exam (neuro): 5/5 motor strength present throughout Sensory Exam: No Sensory deficit (Neuro) Deep tendon reflexes (DTR's): Right patellar reflex intensity grade: 2+ and Left patellar reflex intensity grade: 2+ Extrem General: Yes normal to inspection, No edema and No calf tenderness Psych Appearance: grossly normal Affect: normal affect Attitude: cooperative Thought process: Normal thought process present Coding Level of Care Code Est Pt Level 3 (46392) Est Pt Prev Care >65y(58172) Diagnoses Normal physical examination, routine Z00.00 Essential hypertension I10 Laboratory tests ordered as part of a complete physical exam (CPE) Z00.00 Additional Codes DAVID-7 Assessment Billing - DAVID-7 Assessment Tool: DAVID-7 Assessment 30231 ([id number]) PHQ-9 - 82545 - PHQ-9 Billing: Yes ([id number]) Assessment & Plan Assessment & Plan (1) Normal physical examination, routine: Code(s): Z00.00 - Encounter for general adult medical examination without abnormal findings Category: Medical Plan: Normal physical exam except for slightly unsteady gait. Continue current treatment regimen. Healthy diet and routine exercise encouraged. Advised to use cane at all times for ambulation. Follow-up with specialists as planned. Perform lab work and follow-up for hypertension and labs review in 1 month. Advised to schedule an hospital follow-up visit for recent hospitalization at [facility]. Return sooner with symptoms or concerns. Verbalized understanding and agreed with the plan. (2) Essential hypertension: Code(s): I10 - Essential (primary) hypertension Category: Medical Plan: Resting blood pressure is 150/80, above goal of less than 140/90. She notes that her home BP average 130/80. She has a follow-up appointment with cardiology today. Continue current treatment regimen. Low-sodium diet encouraged. Follow-up in 1 month. Verbalized understanding and agreed with the plan. (3) Laboratory tests ordered as part of a complete physical exam (CPE): Code(s): Z00.00 - Encounter for general adult medical examination without abnormal findings Category: Medical Plan: Fasting labs ordered as part of a complete physical exam. Advised to fast for at least 10 hours before getting labs drawn. May drink water Verbalized understanding and agreed with treatment plan. Orders: Orders Lipid Panel 11/16/24 Z00.00 - Encounter for general adult medical examination without abnormal findings Vitamin D 25-OH Total 11/16/24 Z00.00 - Encounter for general adult medical examination without abnormal findings TSH reflex Free T4 11/16/24 Z00.00 - Encounter for general adult medical examination without abnormal findings UA CC w/rflx Micro + Cult 11/16/24 Z00.00 - Encounter for general adult medical examination without abnormal findings
[2024-11-16 09:37] VITALS: BP 152/86; PULSE 97; RESP 18; TEMP 36.4; O2SAT 98; BMI 33.9
[2024-11-16 10:08] VITALS: BP 150/80; PULSE 100
--- OUTSIDE RECORDS SUMMARY | 2024-11-16 10:43 | XMS_ITS | Encounter Summary ---
Author Organization [facility] Address [address] [place] [address] Phone Care Team Providers Care Roughing Mill Operator Name Role Phone Yvonne Ann NP Primary Care Provider Encounter Details Date Type Department Care Team (Late st Contact Info) Description 08/08/2022 Procedure [facility], [address] [address] Social History Tobacco Use Types Packs/Day Years [...] on file Sexual Orientation Not on file documented as of this encounter Plan of Treatment Not on file documented as of this encounter Visit Diagnoses Not on filedocumented in this encounter Care Teams Roughing Mill Operator Relationship Specialty Start Date End Date Yvonne Ann NP PCP - General Nurse Practitioner 07/11/22 documented as of this encounter Additional Source Comments The information contained in this document represents components of the legal health record. It is not the complete legal health record.[facility]
--- OUTSIDE RECORDS SUMMARY | 2024-11-16 10:43 | XMS_ITS | Clinical Summary ---
Author Organization [facility] Address [address] [place] [address] Phone Care Team Providers Care Vice President Marketing & Development Name Role Phone Yvonne Ann GROUP HOME SUPERVISOR Primary Care Provider Allergies Active Allergy Reactions [...] polyp seen 2004, next due colonoscopy 2009 Immunizations Immunization Administration Dates Next Due Pneumococcal polysaccharide PPSV23 02/01/2007 Tdap 02/01/2007 Zoster live 01/26/2009 Family History Medical History Relation Comments Hypertension Father hypertension Stroke Father cerebrovascular accident Uncoded Family History Father substance abuse; alcoholism Colon cancer Maternal Aunt 2 colon cancer Type 2 Diabetes Maternal Aunt 3 diabetes mellitu s type 2 Coronary artery disease Maternal Grandfather cor onary artery disease ; CT AVM Mother Congenital arter iovenous malformation Colon [...] (ONE-TIME) 2014 Adult Td,Tdap Booster 02/01/2017 02/01/2007 INFLUENZA VACCINE (#1) 2024 , 12/16/2021, 11/15/2020, Additional history exists COVID-19 VACCINE ( season) 2024 11/28/2022, 07/12/2022, 12/16/2021, Additional history exists ZOSTER [...] this topic Medical Devices Not on file Insurance MEDICARE PART A & B [facility] MEDICARE REPLACEMENT MEDICARE PART A & B [employer] PPO MEDICARE REPLACEMENT MEDICARE PART A & B MEDICARE PART A & B Member Subscriber Plan / Payer (Ef fective 2014-Present) Name:Chela Joseph Member ID:[id number] Relation to Subscriber:Self Name:Chela Joseph Subscriber ID:[id number] Payer ID:[id number] Group ID:Not on file Type:Medicare Address: [employer] [address] [place] [id number] MEDICARE PART A & B [employer] PPO MEDICARE REPLACEMENT MEDICARE PART A & B [employer] PPO MEDICARE REPLACEMENT MEDICARE PART A & B [employer] PPO MEDICARE REPLACEMENT MEDICARE PART A & B MEDICARE PART A & B [employer] PPO MEDICARE REPLACEMENT Care Teams Vice President Marketing & Development Relationship Specialty Start Date End Date Yvonne Ann NP PCP - General Nurse Practitioner 07/11/22 Additional Source Comments The information contained in this document represents components of the legal health record. It is not the complete legal health record.[facility]
--- OUTSIDE RECORDS SUMMARY | 2024-11-16 10:43 | XMS_ITS | Patient Health Record ---
Author Organization [facility] Address [address] [place] [address] Care Team Providers Care Mirror Specialist Name Role Phone Mónica WINDOW SASH INSTALLER, Ana Primary Care Provider Unavail able Aziza Maria Unavailable [phone] Reason For Referral No Information Encounters Encounter Location Date Provider Diagnosis [facility] [address] 05/03/2024 Aziza Maria Plan Of Treatment No Information Insurance Providers Payer Name Payer Address Payer Phone Subscriber Number Group Number Insured Name Patient Relationship to Insured Coverage Start Date Coverage End Date [employer] Claims [address] [address] [place] [address] [id number] Chela Cintron Self - patient is the insured
--- OUTSIDE RECORDS SUMMARY | 2024-11-16 10:43 | XMS_ITS | Encounter Summary ---
Author Organization [facility] Address [address] [facility] [address] [place] [address] Phone Care Team Providers Care Head Of It Name Role Phone Yvonne Ann DIRECTOR OF COUNTERINTELLIGENCE Primary Care Provider Encounter Details Date Type Department Care Team (Late st Contact Info) Description 11/28/2022 Ancillary Orders [facility], X-Ray - [address] [address] Trae Haynes, DO [address] [place] [address] [email or web address] Pain in right hip Social History Tobacco Use Types Packs/Day Years [...] on file documented as of this encounter Results * XR HIP 2 VW RIGHT PLUS PELVIS (11/28/2022 10:48 AM EDT) Anatomical Region Laterality Modality Hip, Pelvis Computed Radiogr aphy 11/30/2022 11:0 7 PM EDT Impressions 11/30/2022 11:09 PM EDT Moderate to severe right hip and mild to moderate left hip osteoarthritis. Gluteal enthesopathy at the greater trochanters bilaterally. Narrative 11/30/2022 11:09 PM EDT XR HIP 2 VW RIGHT PLUS PELVIS COMPARISON: None FINDINGS: PELVIS: Pelvic ring intact. No displaced fracture. Degenerative changes of the lower lumbar spine, sacroiliac joints, and pubic symphysis. Bowel anastomotic staple in the left hemiabdomen. Constipation. RIGHT HIP: Moderate to severe hip joint space narrowing with subchondral sclerosis and circumferential osteophyte formation. Gluteal enthesopathy at the greater trochanter. LEFT HIP: Mild to moderate joint space narrowing with subchondral sclerosis. Gluteal enthesopathy at the greater trochanter. Procedure Note Mick Gandhi MD - 11/30/2022 XR HIP 2 VW RIGHT PLUS PELVIS COMPARISON: None FINDINGS: PELVIS: Pelvic ring intact. No displaced fracture. Degenerative changes ofthe lower lumbar spine, sacroiliac joints, and pubic symphysis. Bowelanastomotic staple in the left hemiabdomen. Constipation. RIGHT HIP: Moderate to severe hip joint space narrowing with subchondralsclerosis and circumferential osteophyte formation. Gluteal enthesopathy at the greater trochanter. LEFT HIP: Mild to moderate joint space narrowing with subchondralsclerosis. Gluteal enthesopathy at the greater trochanter. IMPRESSION: Moderate to severe right hip and mild to moderate left hiposteoarthritis. Gluteal enthesopathy at the greater trochanters bilaterally. Trae Haynes DO IMG XR PELVIS Final Result documented in this encounter Visit Diagnoses Diagnosis Pain in right hip Pain in right hip documented in this encounter Care Teams Head Of It Relationship Specialty Start Date End Date Yvonne Ann NP PCP - General Nurse Practitioner 07/11/22 documented as of this encounter Additional Source Comments The information contained in this document represents components of the legal health record. It is not the complete legal health record.[facility]
--- OUTSIDE RECORDS SUMMARY | 2024-11-16 10:43 | XMS_ITS | Encounter Summary ---
Author Organization [facility] Address [address] [place] [address] Care Team Providers Care Business System Consultant Name Role Phone Pcp, No Primary Care Provider Unavailabl e Encounter Details Date Type Department Care Team (Late st Contact Info) Description 11/11/2024 Scanned Document [facility] Colorectal Surgery [address] [phone] Nayla Soliman PA [address] [place] [address] Social History Tobacco Use Types Packs/Day Years Used Date Smoking Tobacco: Never Assessed [facility] Utilities Answer Date Recorded In the [...] any time in the past 12 m [facility], were you homeless or living in a residential (including now)? No 06/14/2024 Comments No Sex and Gender Information Value Date Recorded Sex Assigned at Female 06/11/2024 7:46 PM EDT Legal Sex Female 4:36 PM EDT Gender Identity Female 06/11/2024 7:46 PM EDT Sexual Orientation Heterosexual (straight) 06/11 7:46 PM EDT documented as of this encounter Plan of Treatment Upcoming Encounters Date Type Department Care Team (Late st Contact Info) Description 11/19/2024 11:20 AM EDT Procedure visit [facility] Colorectal Surgery [address] [phone] Nayla Soliman PA [address] [place] [address] documented as of this encounter Visit Diagnoses Not on filedocumented in this encounter Care Teams Business System Consultant Relationship Specialty Start Date End Date Pcp, No PCP - General 07/16/24 documented as of this encounter
--- OUTSIDE RECORDS SUMMARY | 2024-11-16 10:43 | XMS_ITS | Encounter Summary ---
Author Organization [facility] Address [address] [facility] [address] [place] [id number] Phone Care Team Providers Care Tank Furnace Operator Name Role Phone Yvonne Ann NP Primary Care Provider Encounter Details Date Type Department Care Team (Late st Contact Info) Description 08/08/2022 Procedure Pass [facility], [address] [address] Social History Tobacco Use Types Packs/Day Years [...] on filedocumented in this encounter Care Teams Tank Furnace Operator Relationship Specialty Start Date End Date Yvonne Ann NP PCP - General Nurse Practitioner 07/11/22 documented as of this encounter Additional Source Comments The information contained in this document represents components of the legal health record. It is not the complete legal health record.[facility]
--- OUTSIDE RECORDS SUMMARY | 2024-11-16 10:43 | XMS_ITS | Encounter Summary ---
Author Organization [facility] Address [address] [facility] [address] [place] [address] Phone Care Team Providers Care Assistant Clinical Director Name Role Phone Yvonne Ann MANAGER ATHLETICS Primary Care Provider Encounter Details Date Type Department Care Team (Late st Contact Info) Description 07/11/2022 Ancillary Orders [facility], X-Ray - [address] [address] Trae Haynes, DO [address] [place] [address] [email or web address] Scoliosis, unspecified scoliosis type, unspecified spinal region Social History Tobacco Use Types Packs/Day Years Used Date Smoking Tobacco: Unknown Education Answer Date Recorded Are you interested in more education? Not on kelvin e 07/11/2022 Are you concerned about learning? Not on file 07/11/2022 No 07/11/2022 No 07/11/2022 Comments Unknown Sex and Gender Information Value Date Recorded Sex Assigned at Not on file Legal Sex Female 5:51 PM EST Gender Identity Not on file Sexual Orientation Not on file documented as of this encounter Plan of Treatment Not on file documented as of this encounter Results * XR SCOLIOSIS STUDY SUPINE OR ERECT 1 VIEW (07/11/2022 4:32 PM EDT) Anatomical Region Laterality Modality C-spine, T-spine, L-spine Comput ed Radiography 07/15/2022 7:36 PM EDT Impressions 07/15/2022 7:42 PM EDT Severe levocurvature of the upper spine. Narrative 07/15/2022 7:42 PM EDT XR SCOLIOSIS STUDY 1 VIEW COMPARISON: None FINDINGS: Vertebral body heights are normal. Intervertebral disc spaces are normal. Coronal alignment: Severe levocurvature of the cervical/upper thoracic spine measuring 71 degrees. Procedure Note Kai Baker MD - 07/15/2022 XR SCOLIOSIS STUDY 1 VIEW COMPARISON: None FINDINGS: Vertebral body heights are normal. Intervertebral disc spaces arenormal. Coronal alignment: Severe levocurvature of the cervical/upper thoracicspine measuring 71 degrees. IMPRESSION: Severe levocurvature of the upper spine. Trae Haynes DO IMG XR SPINE Final Result documented in this encounter Visit Diagnoses Diagnosis Scoliosis, unspecified scoliosis type, unspecified spinal region Scoliosis, unspecified scoliosis type, unspecified spinal region documented in this encounter Care Teams Assistant Clinical Director Relationship Specialty Start Date End Date Yvonne Ann NP PCP - General Nurse Practitioner 07/11/22 documented as of this encounter Additional Source Comments The information contained in this document represents components of the legal health record. It is not the complete legal health record.[facility]
--- OUTSIDE RECORDS SUMMARY | 2024-11-16 10:43 | XMS_ITS | Encounter Summary ---
Author Organization [facility] Address [address] [facility] [address] [place] [address] Phone Care Team Providers Care Metal Moulder Name Role Phone Yvonne Ann CAMPAIGN ADVISOR Primary Care Provider Encounter Details Date Type Department Care Team ([facility] st Contact Info) Description 11/28/2022 Ancillary Orders [facility] [address] [place] [address] Trae Haynes, DO [address] [place] [address] [email or web address] Social History Tobacco Use Types Packs/Day Years [...] on filedocumented in this encounter Care Teams Metal Moulder Relationship Specialty Start Date End Date Yvonne Ann NP PCP - General Nurse Practitioner 07/11/22 documented as of this encounter Additional Source Comments The information contained in this document represents components of the legal health record. It is not the complete legal health record.[facility]
--- OUTSIDE RECORDS SUMMARY | 2024-11-16 10:43 | XMS_ITS | Clinical Summary ---
Author Organization [facility] Address [address] [place] [address] Care Team Providers Care Swimming Pool Attendant Name Role Phone Pcp, No Primary Care [...] tablet by mouth daily. Active nystatin (MYCOSTATIN) [id number] UNIT/GM creamIndication s:Diverticuliti s Apply topically 2 [...] (25 mg total) by mouth daily. 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 Psoas abscess 06/12/2024 Hematemesis with nausea 06/11/2024 Encounters Date Type Department Care Team Description 11/11/2024 Scanned Document [facility] Colorectal Surgery [address] [phone] Nayla Soliman PA 10/15/2024 11:20 AM EDT Procedure visit [facility] Colorectal [facility] [address] [phone] Nayla Soliman PA 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); Psoas abscess (HCC) 10/15/2024 Travel 10/14/2024 Scanned Document [facility] Colorectal Surgery [address] [phone] Nayla Soliman PA 10/11/2024 1:00 PM EDT Telemedicine [facility] Department of Infectious Disease [address] [phone] Saray Gross MD Psoas abscess (HCC) (Primary Dx) 10/11/2024 Travel 09/09/2024 2:40 PM EDT Procedure visit [facility] Colorectal Surgery [address] [place] [address] Nayla Soliman PA 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); Psoas abscess (HCC) 09/09/2024 Travel 08/20/2024 1:40 PM EDT Procedure visit [facility] Colorectal Surgery [address] [phone] Britany Jimenez RN 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) 08/20/2024 1:40 PM EDT Procedure visit [facility] [address] [address] Nayla Soliman PA 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); Psoas abscess (HCC) 08/20/2024 Travel 08/16/2024 1:30 PM EDT Telemedicine [facility] Department of Infectious Disease [place] [phone] Saray Gross MD Psoas abscess (HCC) (Primary Dx) from Last 3 Months Social History Tobacco Use Types Packs/Day Years Used Date Smoking Tobacco: Never Assessed [facility] Utilities Answer Date Recorded In the past 12 months has [employer], oil, or water [employer] threatened to shut off services in your [...] any time in the past 12 m [facility], were you homeless or living in a [facility] (including now)? No 06/14/2024 Comments No Sex [...] Description 11/19/2024 11:20 AM EDT Procedure visit [facility] Colorectal Surgery [place] [address] [facility] [address] [place] [address] Nayla Soliman PA [address] [place] [address] Health Maintenance Due Date Last Done Comments Hepatitis C Virus Screening 1950 DTaP/Tdap/Td Vaccines (1 - Tdap) 1968 Mammogram 1989 Colonoscopy 1994 Pneumococcal Vaccines 50+ (1 of 1 - PCV) 09/21/1999 Zoster (Shingles) Vaccine (1 of 2) 09/21/1999 DXA Bone Density (Females,Ages 65 and older) 2014 RSV Vaccine 60 years and older and Patients (1 - 1-dose 75+ series) 2024 Influenza Vaccine 10/08/2024 COVID-19 Vaccine (3 - 2024-2 6 season) 2024 06/02/2020, 05/12/2020 Advance Care Planning Completed 08/06/2024 Hepatitis B Vaccines Aged Out No long er eligible based on patient's age to complete this topic Procedures Procedure Name Priority Date/Time Associated Diagnosis Comments C-REACTIVE PROTEIN Routine 10/08/2024 11 :47 AM EDT Psoas abscess (HCC) ERYTHROCYTE SEDIMENTATION RATE (ESR) Routine 10/08/2024 11:47 AM EDT Psoas abscess (HCC) COMPLETE BLOOD COUNT, WITH DIFFERENTIAL Routine 10/08/2024 11:47 AM EDT Psoas abscess (HCC) from Last 3 Months Results * (ABNORMAL) Complete Blood Count, with Differential (10/08/2024 11:47 AM EDT) White Blood Cell Count 7.9 3.8 - 10.8 Thousand/ uL [facility] Red Blood Cell Count 4.10 3.80 - 5.10 Million/u L [facility] Hemoglobin 12.1 11.7 - 15.5 g/dL [facility] [employer] Hematocrit 39.3 35.0 - 45.0 % [facility] [employer] MCV 95.9 80.0 - 100.0 fL [facility] MCH 29.5 27.0 - 33.0 pg [facility] MCHC 30.8(L) 32.0 - 36.0 g/dL [facility] Comment: For adults, a slight decrease in the calculated MCHC value (in the range of 30 to 32 g/dL) is most likely not clinically significant; however, it should be interpreted with caution in correlation with other red cell parameters and the patient's clinical condition. RDW 12.8 11.0 - 15.0 % [facility] Platelet Count 337 140 - 400 Thousand/ uL [facility] MPV 9.1 7.5 - 12.5 fL [facility] Abs Neutrophils Auto 5,143 1,500 - 7,800 cells/uL [facility] Abs Lymphocytes Auto 1,928 850 - 3,900 cells/uL [facility] Abs Monocytes Auto 600 200 - 950 cells/uL [facility] Abs Eosinophils Auto 198 15 - 500 cells/uL [facility] Abs Basophils Auto 32 0 - 200 cells/uL [facility] Neutrophils Auto 65.1 % [employer] Lymphocytes Auto 24.4 % [employer] Monocytes Auto 7.6 % [facility] Eosinophils Auto 2.5 % [employer] Basophils Auto 0.4 % [facility] Blood Blood specimen / Unknown 10/08/2024 11:47 AM EDT 10/08/2024 11:47 AM EDT [facility] - 10/09/2024 12:53 AM EDT AN UPDATE OR CORRECTION HAS BEEN MADE TO NAME us Saray Gross MD LAB BLOOD ORDERABLES Final Result [facility] [address] [place] [address] * (ABNORMAL) Erythrocyte Sediment Rate (ESR) (10/08/2024 11:47 AM EDT) Erythrocyte Sediment Rate (ESR) 33(H) < OR = 30 mm/h [facility] Blood Blood specimen / Unknown 10/08/2024 11:47 AM EDT 10/08/2024 11:47 AM EDT Narrative [facility] - 10/09/2024 12:53 AM EDT AN UPDATE OR CORRECTION HAS BEEN MADE TO NAME us Saray Gross MD LAB BLOOD ORDERABLES Final Result Performing Organization Address [facility] Co de Phone Number [facility] [address] [place] [phone] * C-Reactive Protein (10/08/2024 11:47 AM EDT) Pathologist [facility] C-Reactive Protein 4.6 <8.0 mg/L [facility] Blood Blood specimen / Unknown 10/08/2024 11:47 AM EDT 10/08/2024 11:47 AM EDT Narrative [facility] - 10/09/2024 12:53 AM EDT AN UPDATE OR CORRECTION HAS BEEN MADE TO NAME Result Meir Gross MD LAB BLOOD ORDERABLES Final Result Performing Organization Address City/[facility]/ZIP Co de Phone Number [facility] [address] [place] [phone] from Last 3 Months Insurance [employer] MEDIC[facility] Member Subscriber Plan / Payer (Ef fective 2020-Present) Name:EzedaryivistimothyKanika verdinti Relation to Subscriber:Self Name:EzedaryChela mustafa Payer ID:[id number] (NAIC) Type:Not on file Address: [address] [facility] Advance Directives Documents on File Type Date Recorded 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
--- OUTSIDE RECORDS SUMMARY | 2024-11-16 10:43 | XMS_ITS | Encounter Summary ---
Author Organization [facility] Address [address] [place] [id number] Phone Care Team Providers Care Sales Administration Manager Name Role Phone Yvonne Ann NP Primary Care Provider Reason for Referral * MRI/CAT Scan - Closed Specialty Diagnoses / Procedures Referred By Contac t Referred To Contact Radiology Diagnoses Radiculopathy, thoracolumbar region Procedures MRI Lumbar Spine CHG MRI, LUMBAR SPINE CHG MRI, LUMBAR SPINE COMBTrae Rose DO Phone: tel: fax: mailto:[email or web address] Referral ID Status Reason Start Date Expiration Date Visits Re quested Visits Authorized [id number] Closed 09/07/2022 10/11/2022 1 1 * MRI/CAT Scan - Closed Specialty Diagnoses / Procedures Referred By Contac t Referred To Contact Radiology Diagnoses Radiculopathy, thoracolumbar region Procedures MRI Thoracic Spine CHG MRI, DORSAL SPINE CHG MRI, DORSAL SPINE CONTRAST CHG MRI, DORSAL SPINE Trae Stout DO Phone: tel: fax: mailto:[email or web address] Referral ID Status Reason Start Date Expiration Date Visits Re quested Visits Authorized [id number] Closed 09/07/2022 10/07/2022 1 1 Encounter Details Date Type Department Care Team (Latest Contact Info) Description 08/08/2022 Transcribe Orders Virtual Department [address] [place] [address] Trae Haynes, [address] [place] [address] [email or web address] Radiculopathy, thoracolumbar region (Primary Dx) Social History Tobacco Use Types Packs/Day Years [...] documented as of this encounter Results * MRI LUMBAR SPINE (NEURO) WITHOUT CONTRAST (09/07/2022 11:53 AM EDT) Anatomical Region Laterality Modality L-spine Magnetic Resonan ce 09/14/2022 2:38 PM EDT Impressions 09/14/2022 3:17 PM EDT 1. Prominent scoliosis. No compression fractures. 2. Multilevel degenerative disc and endplate changes. No definite central canal stenosis or high-grade neuroforaminal narrowing at any level. 3. Small disc protrusions at T10-T11, T11-T12 and T12-L1. LUMBAR FINDINGS: Conus medullaris: Normal. Discs and endplates: Sacralization of the body of L5 and rudimentary disc space at L5-S1. Degenerative disc and endplate changes at L5-S1 with evidence of partial ankylosis. Degenerative disc and endplate changes at the other levels, moderate at L1-L2, L2-L3 and L4-L5. Mild degenerative disc and endplate changes at L3-L4. T12-L1: Small right paracentral disc protrusion. No central canal stenosis. Minimal facet arthropathy. No central canal stenosis. No significant neuroforaminal narrowing. L1-L2: Small broad-based disc-osteophyte complex. Mild facet arthropathy. No central canal stenosis. No significant or foraminal narrowing. L2-L3: Small broad-based disc-osteophyte complex. Mild-moderate bilateral facet arthropathy and thickening of the ligamentum flavum. Minimal central canal stenosis. No significant neuroforaminal narrowing. L3-L4: Small broad-based disc protrusion and small osteophytes. More moderate facet arthropathy. Mild central canal stenosis. No significant neuroforaminal narrowing. L4-L5: Small broad-based disc-osteophyte complex. Moderate facet arthropathy on the right and more mild facet arthropathy on the left. Bilateral thickening of the ligamentum flavum. No central canal stenosis. No significant neuroforaminal narrowing. L5-S1: No focal disc abnormality. Mild facet arthropathy. No central canal stenosis. No significant neuroforaminal narrowing. Soft tissues: No evidence of paravertebral masses or prevertebral edema. Vertebral bodies: No compression fractures or subluxations. Marrow signal: No suspicious marrow signal abnormalities. IMPRESSION: 1. No compression fractures. 2. Multilevel degenerative disc and endplate changes. 3. Mild central canal stenosis at L3-L4 and minimally at L2-L3. 4. No significant neuroforaminal narrowing. 5. Multilevel facet arthropathy, moderate at L2 additional 4 and L4-L5. Narrative 09/14/2022 3:17 PM EDT MRI THORACIC SPINE (BONE) WITHOUT CONTRAST, MRI LUMBAR SPINE (NEURO) WITHOUT CONTRAST TECHNIQUE: MRI THORACIC SPINE (BONE) WITHOUT CONTRAST, MRI LUMBAR SPINE (NEURO) WITHOUT CONTRAST Multi-sequence, multi-planar MRI of the thoracic spine was performed without intravenous contrast. HISTORY: Progressive back pain, scoliosis, history of breast malignancy COMPARISON: Scoliosis survey x-rays 07/11/2022. No other imaging for comparison. FINDINGS: THORACIC SPINE: Alignment and Vertebrae: Similar prominent levoscoliotic deformity involving the cervicothoracic spine. No evidence of compression fractures. No subluxations. Marrow: No suspicious marrow signal abnormalities. 13 mm T1, T2 hyperintense lesion within the body of T10 consistent with a hemangioma. Discs and Endplates: Multilevel degenerative disc and endplate changes with evidence of partial ankylosis of the right side of the bodies of T3-T4 and T4-T5. Similar bridging anterolateral osteophytes to the right of midline at numerous levels most prominent at T6-T7, T7-T8 and T8-T9. No evidence of large focal disc abnormalities. Small left paracentral disc protrusions at T10-T11 and T11-T12. Small central- right paracentral disc protrusion at T12-L1. Spinal Cord: Artifact affecting the spinal cord, partially related to scoliosis. No definite spinal cord lesions. Conus medullaris is normal. Central canal: No definite central canal stenosis at any level. No definite high-grade neuroforaminal narrowing. Soft Tissue: No evidence of paravertebral masses. No prevertebral edema. Procedure Note Handy Bar MD - 09/14/2022 MRI THORACIC SPINE (BONE) WITHOUT CONTRAST, MRI LUMBAR SPINE (NEURO)WITHOUT CONTRAST TECHNIQUE: MRI THORACIC SPINE (BONE) WITHOUT CONTRAST, MRI LUMBAR SPINE(NEURO) WITHOUT CONTRAST Multi-sequence, multi-planar MRI of the thoracic spine was performedwithout intravenous contrast. HISTORY: Progressive back pain, scoliosis, history of breast malignancy COMPARISON: Scoliosis survey x-rays 07/11/2022. No other imaging forcomparison. FINDINGS: THORACIC SPINE: Alignment and Vertebrae: Similar prominent levoscoliotic deformityinvolving the cervicothoracic spine. No evidence of compression fractures.No subluxations. Marrow: No suspicious marrow signal abnormalities. 13 mm T1, [id number] lesion within the body of T10 consistent with a hemangioma. Discs and Endplates: Multilevel degenerative disc and endplate changeswith evidence of partial ankylosis of the right side of the bodies ofT3-T4 and T4-T5. Similar bridging anterolateral osteophytes to the rightof midline at numerous levels most prominent at T6-T7, T7-T8 and T8-T9. Noevidence of large focal disc abnormalities. Small left paracentral discprotrusions at T10-T11 and T11-T12. Small central- right paracentral discprotrusion at T12-L1. Spinal Cord: Artifact affecting the spinal cord, partially related toscoliosis. No definite spinal cord lesions. Conus medullaris is normal. Central canal: No definite central canal stenosis at any level. Nodefinite high- grade neuroforaminal narrowing. Soft Tissue: No evidence of paravertebral masses. No prevertebral edema. IMPRESSION: 1. Prominent scoliosis. No compression fractures. 2. Multilevel degenerative disc and endplate changes. No definite centralcanal stenosis or high-grade neuroforaminal narrowing at any level. 3. Small disc protrusions at T10-T11, T11-T12 and T12-L1. LUMBAR FINDINGS: Conus medullaris: Normal. Discs and endplates: Sacralization of the body of L5 and rudimentary discspace at L5-S1. Degenerative disc and endplate changes at L5-S1 withevidence of partial ankylosis. Degenerative disc and endplate changes atthe other levels, moderate at L1-L2, L2-L3 and L4-L5. Mild degenerativedisc and endplate changes at L3-L4. T12-L1: Small right paracentral disc protrusion. No central canalstenosis. Minimal facet arthropathy. No central canal stenosis. Nosignificant neuroforaminal narrowing. L1-L2: Small broad-based disc-osteophyte complex. Mild facet arthropathy.No central canal stenosis. No significant or foraminal narrowing. L2-L3: Small broad-based disc-osteophyte complex. Mild-moderate bilateralfacet arthropathy and thickening of the ligamentum flavum. Minimal centralcanal stenosis. No significant neuroforaminal narrowing. L3-L4: Small broad-based disc protrusion and small osteophytes. Moremoderate facet arthropathy. Mild central canal stenosis. No significantneuroforaminal narrowing. L4-L5: Small broad-based disc-osteophyte complex. Moderate facetarthropathy on the right and more mild facet arthropathy on the left.Bilateral thickening of the ligamentum flavum. No central canal stenosis.No significant neuroforaminal narrowing. L5-S1: No focal disc abnormality. Mild facet arthropathy. No central canalstenosis. No significant neuroforaminal narrowing. Soft tissues: No evidence of paravertebral masses or prevertebral edema. Vertebral bodies: No compression fractures or subluxations. Marrow signal: No suspicious marrow signal abnormalities. IMPRESSION: 1. No compression fractures. 2. Multilevel degenerative disc and endplate changes. 3. Mild central canal stenosis at L3-L4 and minimally at L2-L3. 4. No significant neuroforaminal narrowing. 5. Multilevel facet arthropathy, moderate at L2 additional 4 and L4-L5. us Trae Haynes DO IMG MR XSPECIALTY Final Resu lt * MRI THORACIC SPINE (BONE) WITHOUT CONTRAST (09/07/2022 11:42 AM EDT) Anatomical Region Laterality Modality T-spine Magnetic Resonan ce 09/14/2022 2:38 PM EDT Impressions 09/14/2022 3:17 PM EDT 1. Prominent scoliosis. No compression fractures. 2. Multilevel degenerative disc and endplate changes. No definite central canal stenosis or high-grade neuroforaminal narrowing at any level. 3. Small disc protrusions at T10-T11, T11-T12 and T12-L1. LUMBAR FINDINGS: Conus medullaris: Normal. Discs and endplates: Sacralization of the body of L5 and rudimentary disc space at L5-S1. Degenerative disc and endplate changes at L5-S1 with evidence of partial ankylosis. Degenerative disc and endplate changes at the other levels, moderate at L1-L2, L2-L3 and L4-L5. Mild degenerative disc and endplate changes at L3-L4. T12-L1: Small right paracentral disc protrusion. No central canal stenosis. Minimal facet arthropathy. No central canal stenosis. No significant neuroforaminal narrowing. L1-L2: Small broad-based disc-osteophyte complex. Mild facet arthropathy. No central canal stenosis. No significant or foraminal narrowing. L2-L3: Small broad-based disc-osteophyte complex. Mild-moderate bilateral facet arthropathy and thickening of the ligamentum flavum. Minimal central canal stenosis. No significant neuroforaminal narrowing. L3-L4: Small broad-based disc protrusion and small osteophytes. More moderate facet arthropathy. Mild central canal stenosis. No significant neuroforaminal narrowing. L4-L5: Small broad-based disc-osteophyte complex. Moderate facet arthropathy on the right and more mild facet arthropathy on the left. Bilateral thickening of the ligamentum flavum. No central canal stenosis. No significant neuroforaminal narrowing. L5-S1: No focal disc abnormality. Mild facet arthropathy. No central canal stenosis. No significant neuroforaminal narrowing. Soft tissues: No evidence of paravertebral masses or prevertebral edema. Vertebral bodies: No compression fractures or subluxations. Marrow signal: No suspicious marrow signal abnormalities. IMPRESSION: 1. No compression fractures. 2. Multilevel degenerative disc and endplate changes. 3. Mild central canal stenosis at L3-L4 and minimally at L2-L3. 4. No significant neuroforaminal narrowing. 5. Multilevel facet arthropathy, moderate at L2 additional 4 and L4-L5. Narrative 09/14/2022 3:17 PM EDT MRI THORACIC SPINE (BONE) WITHOUT CONTRAST, MRI LUMBAR SPINE (NEURO) WITHOUT CONTRAST TECHNIQUE: MRI THORACIC SPINE (BONE) WITHOUT CONTRAST, MRI LUMBAR SPINE (NEURO) WITHOUT CONTRAST Multi-sequence, multi-planar MRI of the thoracic spine was performed without intravenous contrast. HISTORY: Progressive back pain, scoliosis, history of breast malignancy COMPARISON: Scoliosis survey x-rays 07/11/2022. No other imaging for comparison. FINDINGS: THORACIC SPINE: Alignment and Vertebrae: Similar prominent levoscoliotic deformity involving the cervicothoracic spine. No evidence of compression fractures. No subluxations. Marrow: No suspicious marrow signal abnormalities. 13 mm T1, T2 hyperintense lesion within the body of T10 consistent with a hemangioma. Discs and Endplates: Multilevel degenerative disc and endplate changes with evidence of partial ankylosis of the right side of the bodies of T3-T4 and T4-T5. Similar bridging anterolateral osteophytes to the right of midline at numerous levels most prominent at T6-T7, T7-T8 and T8-T9. No evidence of large focal disc abnormalities. Small left paracentral disc protrusions at T10-T11 and T11-T12. Small central- right paracentral disc protrusion at T12-L1. Spinal Cord: Artifact affecting the spinal cord, partially related to scoliosis. No definite spinal cord lesions. Conus medullaris is normal. Central canal: No definite central canal stenosis at any level. No definite high-grade neuroforaminal narrowing. Soft Tissue: No evidence of paravertebral masses. No prevertebral edema. Procedure Note Handy Bar MD - 09/14/2022 MRI THORACIC SPINE (BONE) WITHOUT CONTRAST, MRI LUMBAR SPINE (NEURO)WITHOUT CONTRAST TECHNIQUE: MRI THORACIC SPINE (BONE) WITHOUT CONTRAST, MRI LUMBAR SPINE(NEURO) WITHOUT CONTRAST Multi-sequence, multi-planar MRI of the thoracic spine was performedwithout intravenous contrast. HISTORY: Progressive back pain, scoliosis, history of breast malignancy COMPARISON: Scoliosis survey x-rays 07/11/2022. No other imaging forcomparison. FINDINGS: THORACIC SPINE: Alignment and Vertebrae: Similar prominent levoscoliotic deformityinvolving the cervicothoracic spine. No evidence of compression fractures.No subluxations. Marrow: No suspicious marrow signal abnormalities. 13 mm T1, [id number] lesion within the body of T10 consistent with a hemangioma. Discs and Endplates: Multilevel degenerative disc and endplate changeswith evidence of partial ankylosis of the right side of the bodies ofT3-T4 and T4-T5. Similar bridging anterolateral osteophytes to the rightof midline at numerous levels most prominent at T6-T7, T7-T8 and T8-T9. Noevidence of large focal disc abnormalities. Small left paracentral discprotrusions at T10-T11 and T11-T12. Small central- right paracentral discprotrusion at T12-L1. Spinal Cord: Artifact affecting the spinal cord, partially related toscoliosis. No definite spinal cord lesions. Conus medullaris is normal. Central canal: No definite central canal stenosis at any level. Nodefinite high- grade neuroforaminal narrowing. Soft Tissue: No evidence of paravertebral masses. No prevertebral edema. IMPRESSION: 1. Prominent scoliosis. No compression fractures. 2. Multilevel degenerative disc and endplate changes. No definite centralcanal stenosis or high-grade neuroforaminal narrowing at any level. 3. Small disc protrusions at T10-T11, T11-T12 and T12-L1. LUMBAR FINDINGS: Conus medullaris: Normal. Discs and endplates: Sacralization of the body of L5 and rudimentary discspace at L5-S1. Degenerative disc and endplate changes at L5-S1 withevidence of partial ankylosis. Degenerative disc and endplate changes atthe other levels, moderate at L1-L2, L2-L3 and L4-L5. Mild degenerativedisc and endplate changes at L3-L4. T12-L1: Small right paracentral disc protrusion. No central canalstenosis. Minimal facet arthropathy. No central canal stenosis. Nosignificant neuroforaminal narrowing. L1-L2: Small broad-based disc-osteophyte complex. Mild facet arthropathy.No central canal stenosis. No significant or foraminal narrowing. L2-L3: Small broad-based disc-osteophyte complex. Mild-moderate bilateralfacet arthropathy and thickening of the ligamentum flavum. Minimal centralcanal stenosis. No significant neuroforaminal narrowing. L3-L4: Small broad-based disc protrusion and small osteophytes. Moremoderate facet arthropathy. Mild central canal stenosis. No significantneuroforaminal narrowing. L4-L5: Small broad-based disc-osteophyte complex. Moderate facetarthropathy on the right and more mild facet arthropathy on the left.Bilateral thickening of the ligamentum flavum. No central canal stenosis.No significant neuroforaminal narrowing. L5-S1: No focal disc abnormality. Mild facet arthropathy. No central canalstenosis. No significant neuroforaminal narrowing. Soft tissues: No evidence of paravertebral masses or prevertebral edema. Vertebral bodies: No compression fractures or subluxations. Marrow signal: No suspicious marrow signal abnormalities. IMPRESSION: 1. No compression fractures. 2. Multilevel degenerative disc and endplate changes. 3. Mild central canal stenosis at L3-L4 and minimally at L2-L3. 4. No significant neuroforaminal narrowing. 5. Multilevel facet arthropathy, moderate at L2 additional 4 and L4-L5. Trae Haynes DO IMG MR XSPECIALTY Final Resu lt documented in this encounter Visit Diagnoses Diagnosis Radiculopathy, thoracolumbar region- Primary Radiculopathy, thoracolumbar region Radiculopathy, thoracolumbar region documented in this encounter Care Teams Sales Administration Manager Relationship Specialty Start Date End Date Yvonne Ann NP PCP - General Nurse Practitioner 07/11/22 documented as of this encounter Additional Source Comments The information contained in this document represents components of the legal health record. It is not the complete legal health record.[facility]
--- OUTSIDE RECORDS SUMMARY | 2024-11-16 10:44 | XMS_ITS | Encounter Summary ---
Author Organization [facility] Address [address] [place] [address] Care Team Providers Care Shoe Worker Name Role Phone Pcp, No Primary Care Provider Unavailabl e Encounter Details Date Type Department Care Team (Late st Contact Info) Description 10/14/2024 Scanned Document [facility] Colorectal Surgery [address] [phone] Nayla Soliman PA [address] [place] [address] Social History Tobacco Use Types Packs/Day Years Used Date Smoking Tobacco: Never Assessed [facility] Utilities Answer Date Recorded In the [...] any time in the past 12 m [facility], were you homeless or living in a intermediate (including now)? No 06/14/2024 Comments No Sex [...] Description 11/19/2024 11:20 AM EDT Procedure visit [facility] Colorectal Surgery [address] [id number] Nayla Soliman PA [address] [place] [address] documented as of this encounter Visit Diagnoses Not on filedocumented in this encounter Care Teams Shoe Worker Relationship Specialty Start Date End Date Pcp, No PCP - General 07/16/24 documented as of this encounter
== END 2024-11-16 10:35 | disposition home or self-care (01) ==
LOC: HO.HMCFM 09:18
PROVIDERS: PCP Nurse Practitioner Family; Visit Provider Nurse Practitioner Family
DX: Z00.00 Encounter for general adult medical examination without abnormal findings (principal); I10 Essential (primary) hypertension

== ENCOUNTER 2024-11-16 09:17 | Outpatient (REF) | payer OTHER, SELFPAY ==
[2024-11-16 16:34] LABS: Albumin Level 4.3 g/dL (3.5-5.0); Anion Gap 18 (12-20); Blood Urea Nitrogen 15 mg/dL (9-16); Carbon Dioxide 25 mmol/L (22-29); Chloride 104 mmol/L (96-108); Estimated Glomerular Filt Rate > 60; Potassium 3.6 mmol/L (3.3-5.1); Sodium 143 mmol/L (135-145)
== END 2024-11-16 09:18 | disposition home or self-care (01) ==
LOC: HO.LAB 09:17
PROVIDERS: Internal Medicine Nephrology; PCP Student in an Organized Health Care Education/Training Program; Visit Provider Nurse Practitioner Family
DX: Z00.00 Encounter for general adult medical examination without abnormal findings (principal); I10 Essential (primary) hypertension; R00.0 Tachycardia, unspecified; R93.1 Abnormal findings on diagnostic imaging of heart and coronary circulation; Z79.01 Long term (current) use of anticoagulants
CPT/HCPCS: 36415; 80051; 82040; 82565; 84520; 93005; 96127

== ENCOUNTER 2024-11-16 13:19 | Outpatient (AMB) | payer OTHER, SELFPAY ==
[2024-11-16 13:47] VITALS: BP 138/80; PULSE 98; BMI 33.9
--- NOTE | 2024-11-16 13:47 | A.OFFVIS_ITS ---
Vital Signs 11/16/24 13:47 Height 5 ft 1 in Weight 179 lb 7.3 oz BMI 33.9 BP 138/80 Pulse 98 Pulse Source Pulse Oximeter Intake Visit Reasons: 1 yr f/up Community Product Specialist Required: No Counter Server: Counter Server Present Allergies adhesive Allergy (Severe, Verified 11/16/24 13:52) Rash sulfide Allergy (Intermediate, Uncoded 11/16/24 13:52) Hives Medication List - Last Reconciled 11/16/24 by Candi Rock NP-C albuterol sulfate 90 mcg/actuation 2 inhalations inhalation Q6H PRN 30 days apixaban (Eliquis) 5 mg PO BID cholecalciferol (vitamin D3) 25 mcg PO DAILY 90 days diltiazem HCl CD (Cardizem CD) 300 mg PO DAILY furosemide 20 mg PO DAILY PRN metoprolol succinate ER 25 mg PO DAILY multivitamin 1 tab PO DAILY nystatin (Nystop) 1 appl topical BID potassium chloride ER (K-Tab) 20 mEq PO DAILY HPI HPI 1 yr f/up: Details: Chela is a 74-year-old female with past medical history of hypertension, inappropriate sinus tachycardia who presents for follow-up. Today she reports that she had prolonged hospitalization [place] last spring with intestinal surgery requiring ostomy. During her admission she did have large pleural effusion with reported thoracentesis, removal of 700 cc. An echocardiogram was done showing low normal EF and exji-ed-pjorifhg TR. She did have DVT and was started on Eliquis. She does not recall being told she had any specific heart problems during this hospital stay. Since then she has gradually improved and is currently feeling quite well. She had been experiencing shortness of breath with activity but she says that has fully resolved. She has no shortness of breath, PND, orthopnea or edema. No chest discomfort at rest or with activity. No heart palpitations, lightheadedness, presyncope, syncope. She ambulates with a walker. Taking all meds as directed. is present. She has no plans for ostomy reversal at this time. [facility] Medical History Levoscoliosis Osteoarthritis Dyspnea Breast cancer Pulmonary nodule Surgical History History of thoracentesis History of endoscopy Hx of colonoscopy History of knee replacement procedure of right knee History of knee replacement procedure of left knee S/P lumpectomy, right breast Family History Father Scoliosis Gout HTN (hypertension) CVA (cerebral vascular accident) Mother Colon cancer CHF (congestive heart failure) Anxiety Depression Migraine COPD (chronic obstructive pulmonary disease) Cancer HTN (hypertension) CVA (cerebral vascular accident) Son SMA (spinal muscular atrophy) Carotid artery aneurysm Anterior horn cell disease Other Uterine cancer Social History Household Members: Spouse Both parents involved: No Caregiver staying overnight: No Housing: Apartment Are you a primary behavioral health care manager to a significant other at home: No Do you presently have visiting nurse or other home services: No Alcohol intake: current Alcohol intake frequency: a few times a week Alcohol type: wine Patient Tobacco Use Status: Never used Tobacco e-Cigarette/Vaping Use: Never Used Second Hand Smoke Exposure: No service: No Current occupational status: retired Current occupational exposures/hazards: No Cognitive needs: No Hearing needs: No Vision needs: No Review of Systems Const All systems reviewed & are unremarkable except as noted in HPI and below ENT Denies dizziness Card Denies chest pain, Denies chest pain at rest, Denies chest pain with activity, Denies rapid heart rate, Denies pedal edema, Denies edema, Denies leg edema, Denies lightheadedness, Denies palpitations, Denies dyspnea, Denies dyspnea on exertion and Denies orthopnea Resp Denies cough, Denies dyspnea and Denies dyspnea on exertion GI Details: Has new ostomy Denies hematochezia and Denies change in stool character Musc Reports abnormal gait (Uses walker), Denies limited range of motion, Denies muscle cramps, Denies muscle weakness, Denies numbness, Denies radiating pain into limb, Denies stiffness and Denies tingling Neuro Reports abnormal gait (Uses walker), Denies dizziness, Denies numbness and Denies tingling Endo Denies palpitations Physical Exam Vital Signs: Last Vital Signs Pulse 98 11/16/24 13:47 BP 138/80 11/16/24 13:47 BMI result Body Mass Index 33.9 Const General: cooperative, healthy appearing, comfortable and no acute distress Orientation/consciousness: patient oriented x3 Resp Effort & Inspection: normal respiratory effort Auscultation: clear to auscultation bilaterally, no rales, no rhonchi and no wheezes Cardio Jugular venous distension: no JVD Rate: regular rate Rhythm: regular rhythm Heart sounds: S1 normal heart sound present, S2 normal heart sound present, no murmurs and no rubs Neuro General: patient oriented x3 Extrem General: Yes normal to inspection, No no pedal edema and No calf tenderness Psych Appearance: grossly normal Mental Status: mental status grossly normal Speech and movement: Normal speech and movement present Office Procedures EKG Details: Today, read by me, normal sinus rhythm, rate 98, QTC 462 milliseconds [id number], Complete Assessment & Plan Assessment & Plan (1) Essential hypertension: Code(s): I10 - Essential (primary) hypertension Category: Medical Plan: Blood pressure goal less than 130/80. Initial reading 138/80, recheck done by me later in the visit was 126/68. She is on diltiazem and metoprolol. Reviewed low-salt diet. No medication changes made at this time. (2) Sinus tachycardia: Code(s): R00.0 - Tachycardia, unspecified Category: Medical Plan: History of inappropriate sinus tachycardia and has been on metoprolol and diltiazem with heart rate control. Echocardiogram done during recent hospitalization for 12/2024 showing EF 50-54%, xmij-ue-ftybmilu tricuspid regurgitation, RV systolic pressure 36 mmHg. EKG done today showing normal sinu s rhythm, rate 98. With her low normal EF, will update echocardiogram. Her prior echo 2022 in our system had shown EF 69%. Plan to call her with the results. No med changes (3) Abnormal echocardiogram findings without diagnosis: Code(s): R93.1 - Abnormal findings on diagnostic imaging of heart and coronary circulation Category: Medical Plan: Recent echo with low normal EF, vriq-bx-coooiprh TR and elevated RV systolic pressure. Completed during hospitalization and acute illness. No signs of heart failure on examination. Will update echo as above. Cardiology follow-up 6 months, sooner if needed. - going forward she may be preop for ostomy reversal. Plan I discussed with the patient the importance of monitoring her blood pressure regularly and maintaining her current medication regimen. We also reviewed the need for follow-up echocardiograms to assess cardiac function and ensure no further decline. The patient was advised to report any new symptoms such as chest pain, shortness of breath, or significant leg swelling. Orders: Orders CA echo transthoracic complete Today R93.1 - Abnormal findings on diagnostic imaging of heart and coronary circulation Patient Instructions: - Monitor blood pressure daily and report any significant changes. - Continue taking Eliquis as prescribed. - for DVT, not cardiac condition - Schedule follow-up echocardiogram as advised. - Report any new symptoms such as chest pain or shortness of breath immediately. Patient was informed and verbally consented to the use of an ambient scribe for clinic note documentation during this visit. Visit time spent on chart review, interview, assessment, orders, documentation. Coding Level of Care Code Est Pt Level 4 (53447) Complex EM visit Add On G2211 Diagnoses Essential hypertension I10 Sinus tachycardia R00.0 Abnormal echocardiogram findings without diagnosis R93.1 CPT Codes EKG - CPT: 26185-Myrihcviglzsjoime, Complete ([id number]) Time Spent (min) 36
== END 2024-11-16 14:34 | disposition home or self-care (01) ==
LOC: HO.HCS 13:20
PROVIDERS: PCP Student in an Organized Health Care Education/Training Program; Visit Provider Nurse Practitioner Family
DX: I10 Essential (primary) hypertension (principal); R00.0 Tachycardia, unspecified; R93.1 Abnormal findings on diagnostic imaging of heart and coronary circulation
CPT/HCPCS: 93010; 99214; G2211

== ENCOUNTER 2024-11-17 13:30 | Outpatient (AMB) | payer OTHER, SELFPAY ==
--- OUTSIDE RECORDS SUMMARY | 2024-05-10 10:00 | XMS_ITS ---
Author Organization [facility] [place] Address [address] [place] [address] Care Team Providers Care Oil Rigger Name Role Phone Mónica VEGETABLE I FARMWORKER, Ana Primary Care Provider Unavail able Aziza Maria Unavailable [phone] Encounters Encounter Location Date Provider Diagnosis [address] [place] [address] 05/10/2024 Aziza Maria Plan Of Treatment No Information Progress Notes * Sebastian BEJARANOOB:[birth year]07 (74 yo F)Acc No.[id number]:05/10/2024 Progress Notes Patient: Chela WEST Provider: Aiden Maria DPM :1950 A ge:73 Y S ex:Female Date:05/10/2024 Address:[address] [place] [address] [address], [place], [place] Pcp:Ana Sales NP Subjective: * Chief Complaints: * * Medical History: Objective: * Vitals: Assessment: Plan: * Treatment: * Images: * The named appointment provid er may or may not be the originator of this progress note, and it is not deemed complete until electronically signed by the appointment provider. Sign off status: Pending * Provider: Aiden Maria DPM Date: 05/10/2024 Generated for Tamiko cruz/Ritesh/Gloriaitting on: 11/17/2024 04:33 PM EDT
--- NOTE | 2024-11-17 13:38 | HO.NEPHOV ---
Vital Signs 11/17/24 13:41 Height 5 ft 1 in Weight 179 lb BMI 33.8 BP 124/70 Blood Pressure Location Rt brachial Position Sitting Pulse 96 Pulse Source Pulse Oximeter Pulse Oximetry (%) 100 Oxygen Delivery Method Room Air Intake Visit Reasons: 6 weeks fu-[facility] Junior Project Coordinator Required: No Allergies adhesive Allergy (Severe, Verified 11/17/24 13:41) Rash sulfide Allergy (Intermediate, Uncoded 11/16/24 13:52) Hives HPI Comments Details: Chela is a 74-year-old delightful female with H/O hypertension. She has history of inappropriate sinus tachycardia. She has past medical history significant for hypertension, bronchiectasis, solitary pulmonary nodule, osteopenia, gastric bypass, neurofibromatosis, scoliosis, chronic LBP, carpal tunnel syndrome of both hands, vitamin D deficiency, elevated PTH, and anxiety. She is on Letrozole for history of right breast cancer. She has history of gastric bypass and had 1 episode of profound hypokalemia which has been corrected. She denies any coronary artery disease, congestive heart failure, carotid stenosis, peripheral arterial disease, history of renal artery stenosis or renal dysfunction. 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 Her blood pressure control is optimal. She has lost significant weight. [facility] Medical History Levoscoliosis Osteoarthritis Dyspnea Breast cancer Pulmonary nodule Surgical History History of thoracentesis History of endoscopy Hx of colonoscopy History of knee replacement procedure of right knee History of knee replacement procedure of left knee S/P lumpectomy, right breast Family History Father Scoliosis Gout HTN (hypertension) CVA (cerebral vascular accident) Mother Colon cancer CHF (congestive heart failure) Anxiety Depression Migraine COPD (chronic obstructive pulmonary disease) Cancer HTN (hypertension) CVA (cerebral vascular accident) Son SMA (spinal muscular atrophy) Carotid artery aneurysm Anterior horn cell disease Other Uterine cancer Social History Household Members: Spouse Both parents involved: No Caregiver staying overnight: No Housing: Apartment Are you a primary childcare center administrator to a significant other at home: No Do you presently have visiting nurse or other home services: No Alcohol intake: current Alcohol intake frequency: a few times a week Alcohol type: wine Patient Tobacco Use Status: Never used Tobacco e-Cigarette/Vaping Use: Never Used Second Hand Smoke Exposure: No service: No Current occupational status: retired Current occupational exposures/hazards: No Cognitive needs: No Hearing needs: No Vision needs: No Review of Systems Const All systems reviewed & are unremarkable except as noted in HPI and below Physical Exam Vital Signs: Last Vital Signs Pulse 96 11/17/24 13:41 BP 124/70 11/17/24 13:41 Pulse Ox 100 11/17/24 13:41 Oxygen Delivery Method Room Air 11/17/24 13:41 BMI result Body Mass Index 33.8 Const General: comfortable and no acute distress Orientation/consciousness: patient oriented x3 HEENT Head: Yes normocephalic Mouth: Normal oral and palatal mucosa present Eyes EOM: EOMs intact bilaterally Neck Neck: Yes supple Resp Auscultation: clear to auscultation bilaterally Cardio Jugular venous distension: no JVD Rate: regular rate GI Palpation (GI): Soft to palpation Auscultation: normal bowel sounds General: Yes no CVA tenderness Back/Spine/Pelvis Back: no CVA tenderness Skin General skin exam: no rashes or lesions noted Neuro General: patient oriented x3 and moves all extremities Extrem General: Yes no pedal edema Results Reviewed Nephrology Results: Hgb, (12.0-16.0) 12.5 g/dl 10/25/24 WBC, (4.8-10.8) 9.5 X10*3/uL 10/25/24 Plt Count, (160-400) 284 X10*3/uL Δ 10/25/24 Sodium, (135-145) 143 mmol/L 11/16/24 Potassium, (3.3-5.1) 3.6 mmol/L 11/16/24 Chloride, (96-108) 104 mmol/L 11/16/24 Carbon Dioxide, (22-29) 25 mmol/L 11/16/24 BUN, (9-16) 15 mg/dL 11/16/24 Creatinine, (0.5-1.4) 0.72 mg/dL 11/16/24 Calcium, (8.4-10.2) 9.3 mg/dL 11/01/24 PTH Intact, (8.7-77.1) 94.0 pg/mL H 11/01/24 Urine Creatinine 206.18 mg/dL 11/01/24 Protein/Creatinin Ratio, (<0.2) 0.11 11/01/24 Assessment & Plan Assessment & Plan (1) Hypertension: Code(s): I10 - Essential (primary) hypertension Category: Medical Qualifiers: Hypertension type: primary hypertension Qualified Code(s): I10 - Essential (primary) hypertension Plan Chela has hypertension which is well controlled now. She has not known to have any CAD or CHF. Her renal functions are normal. Given her pulmonary condition, she is at risk for multifocal atrial tachycardia. Her heart rate and blood pressure are very well controlled on current medication regimen. At this moment there is no recent suspect any secondary etiology for her hypertension. She maintains a very good low-sodium diet. W/U for high calcium showed an area of hyperactivity on one of the parathyroid glands. Her PTH had improved. She can continue lasix 20 mg to be taken as on a needed basis( every other day). She is going to check labs in 3 months. She eventually needs reversal of her ostomy. I did not make any other changes. Answered all her and her 's questions. Follow-up appointment given Orders: Orders Magnesium 3 Months I10 - Essential (primary) hypertension Blood Urea Nitrogen 3 Months I10 - Essential (primary) hypertension Creatinine 3 Months I10 - Essential (primary) hypertension Electrolytes 3 Months I10 - Essential (primary) hypertension Calcium 3 Months I10 - Essential (primary) hypertension Phosphorus 3 Months I10 - Essential (primary) hypertension Medications: Changed From potassium chloride ER (K-Tab) 20 mEq PO DAILY To potassium chloride ER (K-Tab) 20 mEq orally three times a week; 40 tabs 3RF 90 days Coding Level of Care Code Est Pt Level 4 (82005) Diagnoses Primary hypertension I10 Hypertension type: primary hypertension
[2024-11-17 13:41] VITALS: BP 124/70; PULSE 96; O2SAT 100; BMI 33.8
--- OUTSIDE RECORDS SUMMARY | 2024-11-17 16:33 | XMS_ITS | Encounter Summary ---
Author Organization [facility] Address [address] [facility] [address] [place] [address] Phone Care Team Providers Care Gaming Host Name Role Phone Yvonne Ann NP Primary Care Provider Encounter Details Date Type Department Care Team (Late st Contact Info) Description 08/08/2022 Procedure Pass [facility], [address] [address] Social History Tobacco Use Types Packs/Day Years [...] on filedocumented in this encounter Care Teams Gaming Host Relationship Specialty Start Date End Date Yvonne Ann NP PCP - General Nurse Practitioner 07/11/22 documented as of this encounter Additional Source Comments The information contained in this document represents components of the legal health record. It is not the complete legal health record.[facility]
--- OUTSIDE RECORDS SUMMARY | 2024-11-17 16:33 | XMS_ITS | Clinical Summary ---
Author Organization [facility] Address [address] [place] [address] Care Team Providers Care Teacher Theater Arts Name Role Phone Pcp, No Primary Care [...] tablet by mouth daily. Active nystatin (MYCOSTATIN) 425236 UNIT/GM creamIndication s:Diverticuliti s Apply topically 2 [...] Department Care Team Description 11/11/2024 Scanned Document [facility] Colorectal Surgery [address] [phone] Nayla Soliman PA 10/15/2024 11:20 AM EDT Procedure visit [facility] Colorectal Surgery [address] [phone] Nayla Soliman PA 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); Psoas abscess (HCC) 10/15/2024 Travel 10/14/2024 Scanned Document [facility] Colorectal Surgery [address] [phone] Nayla Soliman PA 10/11/2024 1:[address] [facility] Department of Infectious Disease [address] [phone] Saray Gross MD Psoas abscess (HCC) (Primary Dx) 10/11/2024 Travel 09/09/2024 2:40 PM EDT Procedure visit [facility] Colorectal Surgery [address] [place] [address] Nayla Soliman PA 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); Psoas abscess (HCC) 09/09/2024 Travel 08/20/2024 1:40 PM EDT Procedure visit [facility] Colorectal Surgery [address] [phone] Britany Jimenez RN 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) 08/20/2024 1:40 PM EDT Procedure visit [facility] Colorectal Surgery [address] [place] [address] Nayla Soliman PA 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); Psoas abscess (HCC) 08/20/2024 Travel from Last 3 Months Social History Tobacco Use Types Packs/Day Years Used Date Smoking Tobacco: Never Assessed [facility] Utilities Answer Date Recorded In the past 12 months has [employer], gas, oil, or water [employer] threatened to shut off services in your [...] any time in the past 12 m [facility], were you homeless or living in a snf (including now)? No 06/14/2024 Comments No Sex [...] Description 11/19/2024 11:20 AM EDT Procedure visit [facility] Colorectal Surgery [address] [phone] Nayla Soliman PA [address] [place] [address] 11/19/2024 11:20 AM EDT Clinical Support [facility] Colorectal Surgery [place] [address] [phone] Health Maintenance Due Date Last Done Comments [...] Count 7.9 3.8 - 10.8 Thousand/ uL [facility] Red Blood Cell Count 4.10 3.80 - 5.10 Million/u L [facility] Hemoglobin 12.1 11.7 - 15.5 g/dL [facility] Hematocrit 39.3 35.0 - 45.0 % [facility] MCV 95.9 80.0 - 100.0 fL [facility] MCH 29.5 27.0 - 33.0 pg [facility] MCHC 30.8(L) 32.0 - 36.0 g/dL [facility] Comment: For adults, a slight decrease in the calculated MCHC value (in the range of 30 to 32 g/dL) is most likely not clinically significant; however, it should be interpreted with caution in correlation with other red cell parameters and the patient's clinical condition. RDW 12.8 11.0 - 15.0 % [facility] Platelet Count 337 140 - 400 Thousand/ uL [facility] MPV 9.1 7.5 - 12.5 fL [facility] Abs Neutrophils Auto 5,143 1,500 - 7,800 cells/uL [facility] Abs Lymphocytes Auto 1,928 850 - 3,900 cells/uL [facility] Abs Monocytes Auto 600 200 - 950 cells/uL [facility] Abs Eosinophils Auto 198 15 - 500 cells/uL [facility] Abs Basophils Auto 32 0 - 200 cells/uL [facility] Neutrophils Auto 65.1 % [facility] Lymphocytes Auto 24.4 % [facility] Monocytes Auto 7.6 % [facility] Eosinophils Auto 2.5 % [facility] Basophils Auto 0.4 % [facility] Blood Blood specimen / Unknown 10/08/2024 11:47 AM EDT 10/08/2024 11:47 AM EDT [facility] - 10/09/2024 12:53 AM EDT AN UPDATE OR CORRECTION HAS BEEN MADE TO NAME us Saray Gross MD LAB BLOOD ORDERABLES Final Result [facility] [address] [place] [phone] * (ABNORMAL) Erythrocyte Sediment Rate (ESR) (10/08/2024 11:47 AM EDT) Erythrocyte Sediment Rate (ESR) 33(H) < OR = 30 mm/h [facility] Blood Blood specimen / Unknown 10/08/2024 11:47 AM EDT 10/08/2024 11:47 AM EDT Narrative [facility] - 10/09/2024 12:53 AM EDT AN UPDATE OR CORRECTION HAS BEEN MADE TO NAME Saray Gross MD LAB BLOOD ORDERABLES Final Result Performing Organization Address [facility]/ZIP Co de Phone Number [facility] [address] [place] [phone] * C-Reactive Protein (10/08/2024 11:47 AM EDT) C-Reactive Protein 4.6 <8.0 mg/L [employer] [facility] Blood Blood specimen / Unknown 10/08/2024 11:47 AM EDT 10/08/2024 11:47 AM EDT Narrative [facility] - 10/09/2024 12:53 AM EDT AN UPDATE OR CORRECTION HAS BEEN MADE TO NAME us Saray Gross MD LAB BLOOD ORDERABLES Final Result Performing Organization Address City/[facility]/ZIP Co de Phone Number [facility] [address] [place] [phone] from Last 3 Months Insurance [employer]NA D [facility] Advance Directives Documents on File Type Date Recorded 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
--- OUTSIDE RECORDS SUMMARY | 2024-11-17 16:33 | XMS_ITS | Clinical Summary ---
Author Organization [facility] Address [address] [facility] [address] [place] [phone] Phone Care Team Providers Care Manager Actuarial Name Role Phone Yvonne Ann RN ENDOSCOPY Primary Care Provider Allergies Active Allergy Reactions [...] file Insurance MEDICARE PART A & B Member Subscriber Plan / Payer (Ef fective 2014-Present) Name:Ran RichieChela Member ID:[id number] Relation to Subscriber:Self Name:Ran Chela Quiroz Subscriber ID:[id number] Payer ID:[id number] Group ID:Not on file Type:Medicare Address: [facility] [facility] [address] [place] [phone] [facility] MEDICARE REPLACEMENT MEDICARE PART A & B [employer] PPO MEDICARE REPLACEMENT MEDICARE PART A & B MEDICARE PART A & B Member Subscriber Plan / Payer (Ef fective 2014-Present) Name:Chela Joseph Member ID:[id number] Relation to Subscriber:Self Name:Chela Joseph Subscriber ID:[id number] Payer ID:[id number] Group ID:Not on file Type:Medicare Address: [employer] [address] [place] [id number] MEDICARE PART A & B HUMAN PPO MEDICARE REPLACEMENT MEDICARE PART A & B HU[employer] PPO MEDICARE REPLACEMENT MEDICARE PART A & B HUMAN PPO MEDICARE REPLACEMENT MEDICARE PART A & B MEDICARE PART A & B [employer] PPO MEDICARE REPLACEMENT Care Teams Manager Actuarial Relationship Specialty Start Date End Date Yvonne Ann NP PCP - General Nurse Practitioner 07/11/22 Additional Source Comments The information contained in this document represents components of the legal health record. It is not the complete legal health record.[facility]
--- OUTSIDE RECORDS SUMMARY | 2024-11-17 16:33 | XMS_ITS | Encounter Summary ---
Author Organization [facility] Address [address] [facility] [address] [place] [phone] Phone Care Team Providers Care Emergency Vehicle Dispatcher Name Role Phone Yvonne Ann CAR HEAD LINER INSTALLER Primary Care Provider Encounter Details Date Type Department Care Team (Late st Contact Info) Description 07/11/[address] [facility], X-Ray - [address] [address] Trae Haynes, DO [address] [place] [address] [email or web address] Scoliosis, unspecified scoliosis type, unspecified spinal region [...] region documented in this encounter Care Teams Emergency Vehicle Dispatcher Relationship Specialty Start Date End Date Yvonne Ann NP PCP - General Nurse Practitioner 07/11/22 documented as of this encounter Additional Source Comments The information contained in this document represents components of the legal health record. It is not the complete legal health record.[facility]
--- OUTSIDE RECORDS SUMMARY | 2024-11-17 16:33 | XMS_ITS | Encounter Summary ---
Author Organization [facility] Address [address] [place] [address] Phone Care Team Providers Care Skip Load Driver Name Role Phone Yvonne Ann NP Primary Care Provider Reason for Referral * MRI/CAT Scan - Closed Specialty Diagnoses / Procedures Referred By Contac t Referred To Contact Radiology Diagnoses Radiculopathy, thoracolumbar region Procedures MRI Lumbar Spine CHG MRI, LUMBAR SPINE CHG MRI, LUMBAR SPINE COMBTrae Rose DO Phone: tel: fax: mailto:[email or web address] Referral ID Status Reason Start Date Expiration Date Visits Re quested Visits Authorized [id number] Closed 09/07/2022 10/11/2022 1 1 * MRI/CAT Scan - Closed Specialty Diagnoses / Procedures Referred By Contac t Referred To Contact Radiology Diagnoses Radiculopathy, thoracolumbar region Procedures MRI Thoracic Spine CHG MRI, DORSAL SPINE CHG MRI, DORSAL SPINE CONTRAST CHG MRI, DORSAL SPINE Trae Stout DO Phone: tel: fax: mailto:[email or web address] Referral ID Status Reason Start Date Expiration Date Visits Re quested Visits Authorized [id number] Closed 09/07/2022 10/07/2022 1 1 Encounter Details Date Type Department Care Team (Latest Contact Info) Description 08/08/2022 Transcribe Orders Virtual Department [address] [place] [address] Trae Haynes, [address] [place] [address] [email or web address] Radiculopathy, thoracolumbar region (Primary Dx) Social History [...] suspicious marrow signal abnormalities. 13 mm T1, [id number] lesion within the body of T10 consistent [...] suspicious marrow signal abnormalities. 13 mm T1, [id number] lesion within the body of T10 consistent [...] region documented in this encounter Care Teams Skip Load Driver Relationship Specialty Start Date End Date Yvonne Ann NP PCP - General Nurse Practitioner 07/11/22 documented as of this encounter Additional Source Comments The information contained in this document represents components of the legal health record. It is not the complete legal health record.[facility]
--- OUTSIDE RECORDS SUMMARY | 2024-11-17 16:33 | XMS_ITS | Encounter Summary ---
Author Organization [facility] Address [address] [facility] [address] [place] [address] Phone Care Team Providers Care Field Marketing Representative Name Role Phone Yvonne Ann NP Primary Care Provider Encounter Details Date Type Department Care Team (Late st Contact Info) Description 08/08/2022 Procedure Pass [facility], [address] [address] Social History Tobacco Use Types Packs/Day Years [...] on filedocumented in this encounter Care Teams Field Marketing Representative Relationship Specialty Start Date End Date Yvonne Ann NP PCP - General Nurse Practitioner 07/11/22 documented as of this encounter Additional Source Comments The information contained in this document represents components of the legal health record. It is not the complete legal health record.[facility]
--- OUTSIDE RECORDS SUMMARY | 2024-11-17 16:33 | XMS_ITS | Encounter Summary ---
Author Organization [facility] Address [address] [place] [address] Care Team Providers Care Oracle Business Analyst Name Role Phone Pcp, No Primary Care Provider Unavailabl e Encounter Details Date Type Department Care Team (Late st Contact Info) Description 11/11/2024 Scanned Document [facility] Colorectal Surgery [address] [phone] Nayla Soliman PA [address] [place] [address] Social History Tobacco Use Types Packs/Day Years Used Date Smoking Tobacco: Never Assessed [facility] Utilities Answer Date Recorded In the [...] any time in the past 12 m ont, were you homeless or living in a correction (including now)? No 06/14/2024 Comments No Sex [...] Description 11/19/2024 11:20 AM EDT Procedure visit [facility] Colorectal Surgery [address] [phone] Nayla Soliman PA [address] [place] [address] 11/19/2024 11:20 AM EDT Clinical Support [facility] Colorectal Surgery [address] [phone] documented as of this encounter Visit Diagnoses Not on filedocumented in this encounter Care Teams Oracle Business Analyst Relationship Specialty Start Date End Date Pcp, No PCP - General 07/16/24 documented as of this encounter
--- OUTSIDE RECORDS SUMMARY | 2024-11-17 16:34 | XMS_ITS | Encounter Summary ---
Author Organization [facility] Address [address] [place] [address] Care Team Providers Care Environmental Remediation Specialist Name Role Phone Pcp, No Primary Care Provider Unavailabl e Encounter Details Date Type Department Care Team (Late st Contact Info) Description 10/14/2024 Scanned Document [facility] Colorectal Surgery [address] [phone] Nayla Soliman PA [address] [place] [address] Social History Tobacco Use Types Packs/Day Years Used Date Smoking Tobacco: Never Assessed [facility] Utilities Answer Date Recorded In the past [...] were you homeless or living in a fci (including now)? No 06/14/2024 Comments No Sex [...] Description 11/19/2024 11:20 AM EDT Procedure visit [facility] Colorectal Surgery [address] [phone] Nayla Soliman PA [address] [place] [address] 11/19/2024 11:20 AM EDT Clinical Support [facility] Colorectal Surgery [address] [phone] documented as of this encounter Visit Diagnoses Not on filedocumented in this encounter Care Teams Environmental Remediation Specialist Relationship Specialty Start Date End Date Pcp, No PCP - General 07/16/24 documented as of this encounter
--- OUTSIDE RECORDS SUMMARY | 2024-11-17 16:34 | XMS_ITS | Encounter Summary ---
Author Organization [facility] Address [address] [facility] [address] [place] [address] Phone Care Team Providers Care Health Information Specialist Name Role Phone Yvonne Ann RELASTER Primary Care Provider Encounter Details Date Type Department Care Team ([facility] st Contact Info) Description 11/28/2022 Ancillary Orders [facility] [address] [place] [address] Trae Haynes, DO [address] [place] [address] [email or web address] Social History Tobacco Use Types Packs/Day Years [...] on filedocumented in this encounter Care Teams Health Information Specialist Relationship Specialty Start Date End Date Yvonne Ann NP PCP - General Nurse Practitioner 07/11/22 documented as of this encounter Additional Source Comments The information contained in this document represents components of the legal health record. It is not the complete legal health record.[facility]
--- OUTSIDE RECORDS SUMMARY | 2024-11-17 16:34 | XMS_ITS | Patient Health Record ---
Author Organization [facility] Address [address] [place] [address] Care Team Providers Care Trial Paralegal Name Role Phone Mónica STAMP PAD MAKER, Ana Primary Care Provider Unavail able Aziza Maria Unavailable [phone] Reason For Referral No Information Encounters Encounter Location Date Provider Diagnosis [facility] [phone] 05/03/2024 Aziza Maria Plan Of Treatment No Information Insurance Providers Payer Name Payer Address Payer Phone Subscriber Number Group Number Insured Name Patient Relationship to Insured Coverage Start Date Coverage End Date [employer] Claims [address] [address] [place] [address] [phone] [id number] Chela Cintron Self - patient is the insured
--- OUTSIDE RECORDS SUMMARY | 2024-11-17 16:34 | XMS_ITS | Encounter Summary ---
Author Organization [facility] Address [address] [facility] [address] [place] [address] Phone Care Team Providers Care Sales Strategy Manager Name Role Phone Darrin Annia Jody TRAVEL DIRECTOR Primary Care Provider Encounter Details Date Type Department Care Team (Late st Contact Info) Description 11/28/2022 Ancillary Orders [facility], X-Ray - [address] [address] Trae Haynes, DO [address] [place] [address] [email or web address] Pain in right hip Social History Tobacco [...] hip documented in this encounter Care Teams Sales Strategy Manager Relationship Specialty Start Date End Date Yvonne Ann NP PCP - General Nurse Practitioner 07/11/22 documented as of this encounter Additional Source Comments The information contained in this document represents components of the legal health record. It is not the complete legal health record.[facility]
== END 2024-11-17 13:57 | disposition home or self-care (01) ==
PROVIDERS: PCP Nurse Practitioner Family; Visit Provider Internal Medicine Nephrology
DX: I10 Essential (primary) hypertension (principal)
CPT/HCPCS: 99214

== ENCOUNTER 2024-11-23 12:51 | Outpatient (REF) | payer OTHER, SELFPAY ==
--- OUTSIDE RECORDS SUMMARY | 2024-05-10 10:00 | XMS_ITS ---
Author Organization [facility] [place] Address [address] [place] [address] [place] [address] Care Team Providers Care Skimmer Scoop Operator Name Role Phone Mónica AIR DRIER, Ana Primary Care Provider Unavail able Aziza Maria Unavailable [phone] Encounters Encounter Location Date Provider Diagnosis [address] [place] [address] 05/10/2024 Aziza Maria Plan Of Treatment No Information Progress Notes * Sebastian BEJARANOOB:[birth year]07 (74 yo F)Acc No.[id number]:05/10/2024 Progress Notes Patient: Chela WEST Provider: Aiden Maria DPM :1950 A ge:73 Y S ex:Female Date:05/10/2024 Address:[address] [place] [address] [address], [place], [place] Pcp:Ana Sales NP Subjective: * Chief Complaints: [...] Date: 05/10/2024 Generated for Tamiko cruz/Ritesh/Gloriaitting on: 11/23/2024 04:48 PM EDT
--- OUTSIDE RECORDS SUMMARY | 2024-11-19 11:20 | XMS_ITS | Encounter Summary ---
Author Organization [facility] Address [address] [place] [address] Care Team Providers Care Senior Dot Net Developer Name Role Phone Pcp, No Primary Care Provider Unavailabl e Encounter Details Date Type Department Care Team (Latest Contact Info) Description 11/19/2024 11:20 AM EDT Clinical Support [facility] Colorectal Surgery [place] [phone] [place] [phone] Britany Jimenez, RN [address] [place] 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) Social History Tobacco Use Types Packs/Day Years Used Date Smoking Tobacco: Never Assessed [facility] Utilities Answer Date Recorded In the past 12 months has [facility] electric, gas, oil, or water company threatened [...] any time in the past 12 m [facility], were you homeless or living in a senior living (including now)? No 06/14/2024 Comments No Sex and Gender Information Value Date Recorded Sex Assigned at Female 06/11/2024 7:46 PM EDT Legal Sex Female 4:36 PM EDT Gender Identity Female 06/11/2024 7:46 PM EDT Sexual Orientation Heterosexual (straight) 06/11 7:46 PM EDT documented as of this encounter Progress Notes * Britany Jimenez RN - 11/19/2024 11:53 AM EDT Chela was seen in follow-up with Nayla Soliman PA-C. My portion of the visit was spent with attention to her left sided colostomy. Overall, Kaylin is doing fair with her ostomy care. She notes that she is unable to change the pouch independently, and requires the assistance of her Rojelio, who is present at the time of this visit. Currently, she is using a precut 1 and 1116 inch convex [employer] Centura abril system with Cesario ring. This was gently removed. There is a very large stool leak noted. The peristomal skin was cleansedand allowed to dry. The stoma itself is pink, round and healthy appearing. It measures approximately 1-3/8 inches. We advised Kaylin and Rojelio that based on the size of her stoma, the opening to her wafer is too large and may be why she is experiencing leakage. We supplied them with the ordering information for a precut system from [employer], #[id number]. Yessica provided them with [employer] Brava paste to help fill in the peristomal skin area until she isable to get the correct size pouches. Cavilon skin protectant was applied to the peristomal skin. This was allowed to dry. We then used an Cesario ring and some additional paste and applied to the wafer to the peristomal skin. This was well-tolerated by Kaylin. She will follow-up in approximately 1 month's time. See note from Nayla Soliman PA-C for full details of the visit. documented in this encounter Plan of Treatment Upcoming Encounters Date Type Department Care Team (Late st Contact Info) Description 12/24/2024 10:00 AM EDT Procedure visit [facility] Colorectal Surgery [address] [phone] Nayla Soliman PA [address] [place] [address] 12/24/2024 10:00 AM EDT Procedure visit [facility] Colorectal Surgery [address] [phone] 12/24/2024 10:00 AM EDT Procedure visit [facility] Colorectal Surgery [address] [phone] Cristiano Staton MD [address] [address] documented as of this encounter Visit Diagnoses Diagnosis 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
--- OUTSIDE RECORDS SUMMARY | 2024-11-19 11:20 | XMS_ITS | Encounter Summary ---
Author Organization [facility] Address [address] [place] [address] Care Team Providers Care Erecting Crane Operator Name Role Phone Pcp, No Primary Care Provider Unavailabl e Encounter Details Date Type Department Care Team (Latest Contact Info) Description 11/19/2024 11:20 AM EDT Procedure visit [facility] Colorectal Surgery [place] [address] [phone] Nayla Soliman PA [address] [place] 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); Diverticulitis Social History Tobacco Use Types Packs/Day Years Used Date Smoking Tobacco: Never Assessed [facility] Utilities Answer Date Recorded In the past 12 months has [facility] [employer], gas, oil, or water [employer] threatened to shut off services in your [...] PM EDT documented as of this encounter Last Filed Vital Signs Vital Sign Reading Time Taken Comments Blood Pressure 118/76 11/19/2024 11:20 AM EDT Pulse 76 11/19/2024 11:20 AM EDT Temperature - - Respiratory Rate 18 11/19/2024 11:20 AM EDT Oxygen Saturation 98% 11/19/2024 11:20 AM EDT Inhaled Oxygen Concentration - - Weight 81.2 kg (179 lb) 11/19/2024 11:20 AM EDT Height 154.9 cm (5' 1 ) 11/19/2024 11:20 AM EDT Body Mass Index 33.82 11/19/2024 11:20 AM EDT documented in this encounter Progress Notes * MAURICE Irving - 11/19/2024 11:20 AM EDT Assessment & Plan Chela HATCH is a very pleasant 73 y.o. 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 Patient underwent ex lap, psoas abscess washout with sigmoidectomy and colostomy creation on 06/15/[address] Staton. Patient's post op course was complicated by acute blood loss anemia requiring transfusions, PICC and TPN, L pleural effusion requiring thoracentesis, coffee ground emesis requiring EGD with gastric ulcer clippings, ultimately patient was discharged on 07/02 with PPID BID, and 1 month of Augmentin. Pathology findings were previously reviewed and discussed with patient. Patient was educated on the importance of increasing the protein in her diet to help with healing. Ostomy was changed in the office today: The colostomy measured 1 1/4 inch in diameter and was flushwith the skin in an abdominal fold- the parastomal skin with excoriations inferiorly. Cavalon was placed here and patient was placed in a Esteembody convexed 1 1/4inch appliance was placed with TopmallkinLolapps, wings . Silver alginate and foam dressing applied to retention suture site. Patient is doing well post operatively and regaining her independence. We will see her back in our office in 1 months time for ostomy care and discuss risks of reversal with Dr Staton. We discussed that anatomically she can be reversed; however, will need to optimize her cardiovascular health prior to this. She was educated to contact our office with any concerns once she is home. Nayla Soliman PA-C 11:59 AM Subjective Chela HATCH is a very pleasant 73 y.o. 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 Patient underwent ex lap, psoas abscess washout with sigmoidectomy and colostomy creation on 06/15/[address] Staton. Patient's post op course was complicated by acute blood loss anemia requiring transfusions, PICC and TPN, L pleural effusion requiring thoracentesis, coffee ground emesis requiring EGD with gastric ulcer clippings, ultimately patient was discharged on 07/02 with PPID BID, and 1 month of Augmentin. Patient presents to the office today and continues to improve at home. She is walking, has good energy and has a good appetite. She and her care for her ostomy. She is unable to change the bag independently due to her abdominal folds. She has leakage every now and again. She denies any fevers/ chills, nausea, vomiting, abdominal pain, diarrhea Objective Vitals: 11/19/24 1120 BP: 118/76 Pulse: 76 Resp: 18 SpO2: 98% Weight: 81.2 kg (179 lb) Height: 1.549 m (5' 1 ) The patient is a well-appearing female in no acute distress. She is alert and oriented x3. Skin is warm and dry. Sclera nonicteric No peripheral edema. Respirations are even and unlabored. Abdomen is soft, nontender, nondistended- midline incision c/d/I well healed The colostomy measured1 1/4 inch in diameter and was flush with the skin in an abdominal fold- the parastomal skin with excoriations inferiorly. Cavalon was placed here and patient was placed in a Esteembody convexed 1 1/4inch appliance was placed with dorothy ring, wings . Silver alginate and foam dressing applied to retention suture site. documented in this encounter Plan of Treatment Upcoming Encounters Date Type Department Care Team (Late st Contact Info) Description 12/24/2024 10:00 AM EDT Procedure visit [facility] Colorectal Surgery [address] [phone] Nayla Soliman PA [address] [place] [address] 12/24/2024 10:00 AM EDT Procedure visit [facility] Colorectal Surgery [address] [phone] 12/24/2024 10:00 AM EDT Procedure visit [facility] Colorectal Surgery [address] [phone] Cristiano Staton MD [address] [facility] [address] [place] [address] documented as of this encounter Visit Diagnoses Diagnosis 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
--- NOTE | ~2024-11-23 | CT_ITS ---
CLINICAL HISTORY: J47.9 - Bronchiectasis, uncomplicated CT chest without contrast Comparison: CT/OH/SR - CT ANGIO CHEST PE PROTOCOL - 06/11/24 11:[address]/SR - CT CHEST ANGIOGRAPHY WITH IV CONTRAST - 06/11/24 11:[address]/OH/SR - CT CHEST WITHOUT IV CONTRAST - 12/15/23 12:[address]/SR - CT CHEST WITHOUT IV CONTRAST - 12/18/22 10:08 EDT Findings: No mediastinal mass or lymphadenopathy. Accessory azygous fissure. No cardiomegaly. Mild calcified coronary artery disease. Moderate calcification of the aortic valve and mitral annulus. Normal size thoracic aorta. Moderate calcified atherosclerotic disease. Left lung base scarring and/or atelectasis with mild elevation of the left hemidiaphragm, unchanged. There is mild bronchial wall thickening with a trace amount of secretions in the airways, also present on the prior studies, with mild bronchiectasis which is most prominent at the left lung base. Mild increased subpleural reticulation. Mild amount of atelectasis versus linear scarring at the right lung base. No pneumothorax or pleural effusion. No acute osseous or soft tissue abnormality. Moderate scoliosis. There is a mild amount fat stranding in the left upper quadrant with a trace amount of fluid in the left pericolic gutter, also present on the prior study. Status post cholecystectomy. Status post gastric bypass. Colonic diverticulosis without a definitive inflamed diverticula. Impression: Mild bronchial wall thickening with a trace amount of secretions in the airways likely indicates bronchitis. Mild bronchiectasis, likely the sequela of chronic/recurrent infection. Mild amount of fat stranding with a trace amount of fluid in the left upper quadrant which could be infectious/inflammatory. Correlate clinically for signs/symptoms of infection. This document has been electronically signed by: Barbara Leroy MD on 11/24/2024 15:39:17
--- NOTE | 2024-11-23 13:19 | PFT_ITS ---
Flows: FEV1: 92 % of predicted at 1.71 L FVC: 87 % of predicted at 2.09 L FEV1/FVC: 82 % Bronchodilator response: Present in small to medium airways only Volumes: Total lung capacity: 74 % of predicted at 3.26 L Residual volume: 58 % of predicted at 1.08 L Slow vital capacity: 87 % of predicted at 2.19 L Expiratory reserve volume: 91 % of predicted at 0.54 L Diffusion capacity: Mildly decreased, corrects to normal after adjustment for alveolar ventilation. Impression: Mild restrictive ventilatory defect with bronchodilator response present in small to medium airways only. Combination of restrictive ventilatory defect with decreased diffusion capacity suggests underlying pulmonary parenchymal disease. Clinical correlation is advised. MTDD
[2024-11-23 14:00] VITALS: PULSE 105; O2SAT 95
--- OUTSIDE RECORDS SUMMARY | 2024-11-23 16:47 | XMS_ITS | Clinical Summary ---
Author Organization [facility] Address [address] [place] [address] Care Team Providers Care Stone Splitter Name Role Phone Pcp, No Primary Care [...] (twelve) hours around the clock. 5 Active Additional Information Patient not taking.Reported on 11/19/2024 acetaminophen (TYLENOL) 325 MG tabletIndicatio ns:Diverticulit is Take 3 tablets (975 mg total) by mouth 4 times daily (every 6 hours) as needed for mild pain or headaches. Active famotidine (PEPCID) 20 MG tabletIndicatio ns:Diverticulit is Take 1 tablet (20 mg total) by mouth 2 (two) times a day. Active Additional Information Patient not taking.Reported on 11/19/2024 multivitamin with minerals Tab tabletIndicatio ns:Diverticulit is Take 1 tablet by mouth daily. Active nystatin (MYCOSTATIN) 232991 UNIT/GM creamIndication s:Diverticuliti s Apply topically 2 (two) times a day. Active PANTOprazole (PROTONIX) 40 MG EC tabletIndicatio ns:Diverticulit is Take 1 tablet (40 mg total) by mouth 2 times a day. Active Additional Information Patient not taking.Reported on 11/19/2024 diltiazem (CARDIZEM) 60 MG tabletIndicatio ns:Diverticulit is Take 1 tablet (60 mg total) by mouth 4 (four) times a day before meals and nightly. Active Additional Information Patient not taking.Reported on 11/19/2024 potassium chloride (K-TAB) 20 MEQ CR tablet [...] Encounters Date Type Department Care Team Description 11/19/2024 11:20 AM EDT Clinical Support [facility] Colorectal Surgery [address] [phone] Britany Jimenez RN 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) 11/19/2024 11:20 AM EDT Procedure visit [facility] Colorectal Surgery [address] [phone] Nayla Soliman PA 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); Diverticulitis 11/19/2024 Travel 11/11/2024 Scanned Document [facility] Colorectal Surgery [address] [place] [address] Nayla Soliman PA 10/15/2024 11:20 AM EDT Procedure visit [facility] Colorectal Surgery [address] [place] [address] Nayla Soliman PA 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); Psoas abscess (HCC) 10/15/2024 Travel 10/14/2024 Scanned Document [facility] Colorectal Surgery [address] [place] [address] Nayla Soliman PA 10/11/2024 1:00 PM EDT Telemedicine [facility] Department of Infectious Disease [address] [place] [address] Saray Gross MD Psoas abscess (HCC) (Primary Dx) 10/11/2024 Travel 09/09/2024 2:40 PM EDT Procedure visit [facility] Colorectal Surgery [address] [place] [address] Nayla Soliman PA 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); Psoas abscess (HCC) 09/09/2024 Travel from Last 3 Months Social History Tobacco Use Types Packs/Day Years Used Date Smoking Tobacco: Never Assessed [facility] Utilities Answer Date Recorded In the past 12 months has [employer], [employer], or water [employer] threatened to shut off services in your [...] Pulse 76 11/19/2024 11:20 AM EDT Temperature 35.8 C (96.5 F) 10/15/2024 11:29 AM EDT Respiratory Rate 18 11/19/2024 11:20 AM EDT Oxygen Saturation 98% 11/19/2024 11:20 AM EDT Inhaled Oxygen Concentration - - Weight 81.2 kg (179 lb) 11/19/2024 11:20 AM EDT Height 154.9 cm (5' 1 ) 11/19/2024 11:20 AM EDT Body Mass Index 33.82 11/19/2024 11:20 AM EDT Plan of Treatment Upcoming Encounters Date Type Department Care Team (Late st Contact Info) Description 12/24/2024 10:00 AM EDT Procedure visit [facility] Colorectal Surgery [place] [address] [phone] Nayla Soliman PA [address] [place] [address] 12/24/2024 10:00 AM EDT Procedure visit [facility] Colorectal Surgery [place] [address] [phone] 12/24/2024 10:00 AM EDT Procedure visit [facility] Colorectal Surgery [place] [address] [phone] Cristiano Staton MD [address] [address] Health Maintenance Due Date Last Done Comments [...] Count 7.9 3.8 - 10.8 Thousand/ uL [facility] [employer] Red Blood Cell Count 4.10 3.80 - 5.10 Million/u L [facility] [employer] Hemoglobin 12.1 11.7 - 15.5 g/dL [facility] [employer] Hematocrit 39.3 35.0 - 45.0 % [facility] [employer] MCV 95.9 80.0 - 100.0 fL [facility] MCH 29.5 27.0 - 33.0 pg [facility] MCHC 30.8(L) 32.0 - 36.0 g/dL [facility] Comment: For adults, a slight decrease in the calculated MCHC value (in the range of 30 to 32 g/dL) is most likely not clinically significant; however, it should be interpreted with caution in correlation with other red cell parameters and the patient's clinical condition. RDW 12.8 11.0 - 15.0 % [facility] Platelet Count 337 140 - 400 Thousand/ uL [facility] MPV 9.1 7.5 - 12.5 fL [facility] Abs Neutrophils Auto 5,143 1,500 - 7,800 cells/uL [facility] Abs Lymphocytes Auto 1,928 850 - 3,900 cells/uL [facility] Monocytes Auto 600 200 - 950 cells/uL [facility] Eosinophils Auto 198 15 - 500 cells/uL [facility] Abs Basophils Auto 32 0 - 200 cells/uL [facility] Neutrophils Auto 65.1 % [facility] Lymphocytes Auto 24.4 % [facility] [employer] Monocytes Auto 7.6 % [facility] Eosinophils Auto 2.5 % [facility] Basophils Auto 0.4 % [facility] Blood Blood specimen / Unknown 10/08/2024 11:47 AM EDT 10/08/2024 11:47 AM EDT Narrative [facility] - 10/09/2024 12:53 AM EDT AN UPDATE OR CORRECTION HAS BEEN MADE TO NAME Result Meir Gross MD LAB BLOOD ORDERABLES Final Result Performing Organization Address [facility] de Phone Number [facility] [address] [place] [address] * (ABNORMAL) Erythrocyte Sediment Rate (ESR) (10/08/2024 11:47 AM EDT) Pathologist [facility] Erythrocyte Sediment Rate (ESR) 33(H) < OR = 30 mm/h [facility] Blood Blood specimen / Unknown 10/08/2024 11:47 AM EDT 10/08/2024 11:47 AM EDT Narrative [facility] - 10/09/2024 12:53 AM EDT AN UPDATE OR CORRECTION HAS BEEN MADE TO NAME Result Meir Gross MD LAB BLOOD ORDERABLES Final Result Performing Organization Address [facility] de Phone Number [employer] [address] [place] [address] * C-Reactive Protein (10/08/2024 11:47 AM EDT) Pathologist [facility] C-Reactive Protein 4.6 <8.0 mg/L [facility] [facility] Blood Blood specimen / Unknown 10/08/2024 11:47 AM EDT 10/08/2024 11:47 AM EDT Narrative [facility] - 10/09/2024 12:53 AM EDT AN UPDATE OR CORRECTION HAS BEEN MADE TO NAME Result Meir Gross MD LAB BLOOD ORDERABLES Final Result Performing Organization Address [facility] de Phone Number [facility] [address] [phone] from Last 3 Months Insurance HUMANA D MEDICARE HUMANA D MEDICARE HUMANA D MEDICARE Advance Directives Documents on File Type Date Recorded Patient Bridge Worker Expl anation Advance Directive-Scan 08/06/2024 CT AB DOMEN AND PELVIS W/ CONTRAST RESULTS TO ID Advance Directive-Scan 07/26/[address] VISIT SUMMARY/LABS * Full Code (Latest Code Status on File) Date Activated Date Inactivated Comments 06/12/2024 1:16 AM Question Answer Comments Decision Thoroughly Discussed with: Patient Care Teams Stone Splitter Relationship Specialty Start Date End Date Pcp, No PCP - General 07/16/24
--- OUTSIDE RECORDS SUMMARY | 2024-11-23 16:47 | XMS_ITS | Encounter Summary ---
Author Organization [facility] Address [address] [place] [address] Phone Care Team Providers Care Deburring Machine Operator Name Role Phone Yvonne Ann NP Primary Care Provider Reason for Referral * MRI/CAT Scan - Closed Specialty Diagnoses / Procedures Referred By Contac t Referred To Contact Radiology Diagnoses Radiculopathy, thoracolumbar region Procedures MRI Lumbar Spine CHG MRI, LUMBAR SPINE CHG MRI, LUMBAR SPINE COMBTrae Rose DO Phone: tel: fax: mailto:[email or web address] Referral ID Status Reason Start Date Expiration Date Visits Re quested Visits Authorized [id number] Closed 09/07/2022 10/11/2022 1 1 * MRI/CAT Scan - Closed Specialty Diagnoses / Procedures Referred By Contac t Referred To Contact Radiology Diagnoses Radiculopathy, thoracolumbar region Procedures MRI Thoracic Spine CHG MRI, DORSAL SPINE CHG MRI, DORSAL SPINE CONTRAST CHG MRI, DORSAL SPINE Trae Stout DO Phone: tel: fax: mailto:[email or web address] Referral ID Status Reason Start Date Expiration Date Visits Re quested Visits Authorized [id number] Closed 09/07/2022 10/07/2022 1 1 Encounter Details Date Type Department Care Team (Latest Contact Info) Description 08/08/2022 Transcribe Orders Virtual Department [address] [place] [address] Trae Haynes, [address] [place] [address] [email or web address] Radiculopathy, thoracolumbar region (Primary Dx) Social History [...] suspicious marrow signal abnormalities. 13 mm T1, [id number] lesion within the body of T10 consistent [...] suspicious marrow signal abnormalities. 13 mm T1, [id number] lesion within the body of T10 consistent [...] region documented in this encounter Care Teams Deburring Machine Operator Relationship Specialty Start Date End Date Yvonne Ann NP PCP - General Nurse Practitioner 07/11/22 documented as of this encounter Additional Source Comments The information contained in this document represents components of the legal health record. It is not the complete legal health record.[facility]
--- OUTSIDE RECORDS SUMMARY | 2024-11-23 16:47 | XMS_ITS | Clinical Summary ---
Author Organization [facility] Address [address] [facility] [address] [place] [address] Phone Care Team Providers Care Manager Rfid Name Role Phone Yvonne Ann SHIPPING ROOM HELPER Primary Care Provider Allergies Active Allergy Reactions [...] Maternal Grandfather cor onary artery disease ; NH AVM Mother Congenital arter iovenous malformation Colon [...] file Insurance MEDICARE PART A & B [facility] MEDICARE REPLACEMENT MEDICARE PART A & B HUMANA PPO MEDICARE REPLACEMENT MEDICARE PART A & B MEDICARE PART A & B Member Subscriber Plan / Payer (Ef fective 2014-Present) Name:Chela Joseph Member ID:[id number] Relation to Subscriber:Self Name:Chela Joseph Subscriber ID:[id number] Payer ID:[id number] Group ID:Not on file Type:Medicare Address: [employer] [address] [place] [id number] MEDICARE PART A & B HUMAN PPO MEDICARE REPLACEMENT MEDICARE PART A & B HUMANA PPO MEDICARE REPLACEMENT MEDICARE PART A & B HUMAN PPO MEDICARE REPLACEMENT MEDICARE PART A & B MEDICARE PART A & B HUMANA PPO MEDICARE REPLACEMENT Care Teams Manager Rfid Relationship Specialty Start Date End Date Yvonne Ann NP PCP - General Nurse Practitioner 07/11/22 Additional Source Comments The information contained in this document represents components of the legal health record. It is not the complete legal health record.[facility]
--- OUTSIDE RECORDS SUMMARY | 2024-11-23 16:47 | XMS_ITS | Encounter Summary ---
Author Organization [facility] Address [address] [facility] [address] [place] [address] Phone Care Team Providers Care Supervisor Fish Bait Processing Name Role Phone Yvonne Ann MARKET PRESIDENT Primary Care Provider Encounter Details Date Type Department Care Team ([facility] st Contact Info) Description 11/28/2022 Ancillary Orders [facility] [address] [place] [address] Trae Haynes, DO [address] [place] [address] [email or web address] Social History Tobacco Use Types Packs/Day Years [...] on filedocumented in this encounter Care Teams Supervisor Fish Bait Processing Relationship Specialty Start Date End Date Yvonne Ann NP PCP - General Nurse Practitioner 07/11/22 documented as of this encounter Additional Source Comments The information contained in this document represents components of the legal health record. It is not the complete legal health record.[facility]
--- OUTSIDE RECORDS SUMMARY | 2024-11-23 16:47 | XMS_ITS | Encounter Summary ---
Author Organization [facility] Address [address] [place] [address] Care Team Providers Care Special Client Bus Driver Name Role Phone Pcp, No Primary Care Provider Unavailabl e Encounter Details Date Type Department Care Team (Latest Contact Info) Description 11/19/2024 Travel Social History Tobacco Use Types Packs/Day Years Used Date Smoking Tobacco: Never Assessed [facility] Utilities Answer Date Recorded In the past 12 months has th e Exposed Vocals, gas, oil, or water [employer] threatened to shut off services in your [...] any time in the past 12 [facility], were you homeless or living in a alf (including now)? No 06/14/2024 Comments No Sex [...] Description 12/24/2024 10:00 AM EDT Procedure visit [facility] Colorectal Surgery [address] [phone] Nayla Soliman PA [address] [place] [address] 12/24/2024 10:00 AM EDT Procedure visit [facility] Colorectal Surgery [address] [address] 12/24/2024 10:00 AM EDT Procedure visit [facility] Colorectal Surgery [address] [address] Cristiano Staton MD [address] [address] documented as of this encounter Visit Diagnoses Not on filedocumented in this encounter Care Teams Special Client Bus Driver Relationship Specialty Start Date End Date Pcp, No PCP - General 07/16/24 documented as of this encounter
--- OUTSIDE RECORDS SUMMARY | 2024-11-23 16:47 | XMS_ITS | Encounter Summary ---
Author Organization [facility] Address [address] [facility] [address] [place] [address] Phone Care Team Providers Care Welding Machine Operator Helper Gas Name Role Phone Yvonne Ann NP Primary Care Provider Encounter Details Date Type Department Care Team (Late st Contact Info) Description 08/08/2022 Procedure Pass [facility], [address] [address] Social History Tobacco Use Types Packs/Day Years [...] on filedocumented in this encounter Care Teams Welding Machine Operator Helper Gas Relationship Specialty Start Date End Date Yvonne Ann NP PCP - General Nurse Practitioner 07/11/22 documented as of this encounter Additional Source Comments The information contained in this document represents components of the legal health record. It is not the complete legal health record.[facility]
--- OUTSIDE RECORDS SUMMARY | 2024-11-23 16:47 | XMS_ITS | Encounter Summary ---
Author Organization [facility] Address [address] [facility] [address] [place] [address] Phone Care Team Providers Care Heel Nail Rasper Name Role Phone Yvonne Ann NP Primary Care Provider Encounter Details Date Type Department Care Team (Late st Contact Info) Description 08/08/2022 Procedure Pass [facility], [address] [address] Social History Tobacco Use Types Packs/Day Years [...] on filedocumented in this encounter Care Teams Heel Nail Rasper Relationship Specialty Start Date End Date Yvonne Ann NP PCP - General Nurse Practitioner 07/11/22 documented as of this encounter Additional Source Comments The information contained in this document represents components of the legal health record. It is not the complete legal health record.[facility]
--- OUTSIDE RECORDS SUMMARY | 2024-11-23 16:47 | XMS_ITS | Encounter Summary ---
Author Organization [facility] Address [address] [facility] [address] [place] [address] Phone Care Team Providers Care Chief Nuclear Medicine Technologist Name Role Phone Yvonne Ann ASSEMBLER LEATHER GOODS Primary Care Provider Encounter Details Date Type Department Care Team (Late st Contact Info) Description 07/11/2022 Ancillary Orders [facility], X-Ray - [address] [address] Trae Haynes, DO [address] [place] [address] .[employer] Scoliosis, unspecified scoliosis type, unspecified spinal region [...] region documented in this encounter Care Teams Chief Nuclear Medicine Technologist Relationship Specialty Start Date End Date Yvonne Ann NP PCP - General Nurse Practitioner 07/11/22 documented as of this encounter Additional Source Comments The information contained in this document represents components of the legal health record. It is not the complete legal health record.[facility]
--- OUTSIDE RECORDS SUMMARY | 2024-11-23 16:47 | XMS_ITS | Encounter Summary ---
Author Organization [facility] Address [address] [place] [address] Care Team Providers Care Weatherization And Housing Inspector Name Role Phone Pcp, No Primary Care Provider Unavailabl e Encounter Details Date Type Department Care Team (Late st Contact Info) Description 11/11/2024 Scanned Document [facility] Colorectal Surgery [address] [phone] Nayla Soliman PA [address] [place] [address] Social History Tobacco Use Types Packs/Day Years Used Date Smoking Tobacco: Never Assessed [facility] Utilities Answer Date Recorded In the [...] were you homeless or living in a longterm (including now)? No 06/14/2024 Comments No Sex [...] Description 12/24/2024 10:00 AM EDT Procedure visit [facility] Colorectal Surgery [address] [phone] Nayla Soliman PA [address] [place] [address] 12/24/2024 10:00 AM EDT Procedure visit [facility] Colorectal Surgery [address] [phone] 12/24/2024 10:00 AM EDT Procedure visit [facility] Colorectal Surgery [address] [phone] Cristiano Staton MD [address] [place], [place] [address], [place] [address] documented as of this encounter Visit Diagnoses Not on filedocumented in this encounter Care Teams Weatherization And Housing Inspector Relationship Specialty Start Date End Date Pcp, No PCP - General 07/16/24 documented as of this encounter
--- OUTSIDE RECORDS SUMMARY | 2024-11-23 16:48 | XMS_ITS | Encounter Summary ---
Author Organization [facility] Address [address] [place] [address] Care Team Providers Care Retail Merchandising Specialist Name Role Phone Pcp, No Primary Care Provider Unavailabl e Encounter Details Date Type Department Care Team (Late st Contact Info) Description 10/14/2024 Scanned Document [facility] Colorectal Surgery [address] [phone] Nayla Soliman PA [address] [place] [address] Social History Tobacco Use Types Packs/Day Years Used Date Smoking Tobacco: Never Assessed [facility] Utilities Answer Date Recorded In [...] Description 12/24/2024 10:00 AM EDT Procedure visit [facility] Colorectal Surgery [address] [phone] Nayla Soliman PA [address] [place] [address] 12/24/2024 10:00 AM EDT Procedure visit [facility] Colorectal Surgery [address] [phone] 12/24/2024 10:00 AM EDT Procedure visit [facility] Colorectal Surgery [address] [phone] Cristiano Staton MD [address] [place], [place] [address], [place] [address] documented as of this encounter Visit Diagnoses Not on filedocumented in this encounter Care Teams Retail Merchandising Specialist Relationship Specialty Start Date End Date Pcp, No PCP - General 07/16/24 documented as of this encounter
--- OUTSIDE RECORDS SUMMARY | 2024-11-23 16:48 | XMS_ITS | Patient Health Record ---
Author Organization [facility] Address [address] [place] [address] Care Team Providers Care Composition Floor Setter Name Role Phone Mónica LANDSCAPE FOREMAN, Ana Primary Care Provider Unavail able Aziza Maria Unavailable [phone] Reason For Referral No Information Encounters Encounter Location Date Provider Diagnosis [facility] [address] 05/03/2024 Aziza Maria Plan Of Treatment No Information Insurance Providers Payer Name Payer Address Payer Phone Subscriber Number Group Number Insured Name Patient Relationship to Insured Coverage Start Date Coverage End Date [employer] Claims [address] [address] [place] [address] [id number] Chela Cintron Self - patient is the insured
--- OUTSIDE RECORDS SUMMARY | 2024-11-23 16:48 | XMS_ITS | Encounter Summary ---
Author Organization [facility] Address [address] [facility] [address] [place] [address] Phone Care Team Providers Care Terminal Make Up Operator Name Role Phone Darrin Annia Jody SPORTS PSYCHOLOGIST Primary Care Provider Encounter Details Date Type Department Care Team (Late st Contact Info) Description 11/28/2022 Ancillary Orders [facility], X-Ray - [address] [address] Trae Haynes, DO [address] [place] [address] [email or web address] Pain in right hip Social History Tobacco [...] hip documented in this encounter Care Teams Terminal Make Up Operator Relationship Specialty Start Date End Date Yvonne Ann NP PCP - General Nurse Practitioner 07/11/22 documented as of this encounter Additional Source Comments The information contained in this document represents components of the legal health record. It is not the complete legal health record.[facility]
== END 2024-11-23 12:52 | disposition home or self-care (01) ==
LOC: HO.CT 12:51
PROVIDERS: PCP Nurse Practitioner Family; Visit Provider Hospitalist
DX: J47.9 Bronchiectasis, uncomplicated (principal)
CPT/HCPCS: 71250; 94010; 94640; 94727; 94729

== ENCOUNTER → 2024-11-23 12:52 | Outpatient (BNV) | payer OTHER, SELFPAY | PROVIDERS: PCP Nurse Practitioner Family; Visit Provider Radiology Diagnostic Radiology | DX: J47.9 Bronchiectasis, uncomplicated (principal) | CPT/HCPCS: 71250 ==

== ENCOUNTER → 2024-11-23 13:19 | Outpatient (BNV) | payer OTHER, SELFPAY | PROVIDERS: PCP Nurse Practitioner Family; Visit Provider Internal Medicine Pulmonary Disease | DX: J47.9 Bronchiectasis, uncomplicated (principal) | CPT/HCPCS: 94060; 94727; 94729 ==

== ENCOUNTER 2024-12-15 10:36 | Outpatient (REF) | payer OTHER, SELFPAY ==
[2024-12-15 14:57] LABS: Appearance Urine Clear; Glucose Urine UA Negative (Negative); PH 5.5 (5.0-9.0); Specific Gravity - Urine <= 1.005 (1.005-1.025)
[2024-12-15 15:02] LABS: Cholesterol 217 mg/dL (<200); HDL Cholesterol 78 mg/dL (>40); Triglycerides 160 mg/dL (<150)
[2024-12-15 15:23] LABS: Parathyroid Hormone Intact 104.1 pg/mL (8.7-77.1)
== END 2024-12-15 10:37 | disposition home or self-care (01) ==
LOC: HO.WFDLDS 10:36
PROVIDERS: Visit Provider Nurse Practitioner Family
DX: Z00.00 Encounter for general adult medical examination without abnormal findings (principal); Z13.21 Encounter for screening for nutritional disorder; Z13.6 Encounter for screening for cardiovascular disorders; Z13.29 Encounter for screening for other suspected endocrine disorder
CPT/HCPCS: 36415; 80061; 81003; 82306; 83970; 84443

== ENCOUNTER 2024-12-17 11:24 | Outpatient (AMB) | payer OTHER, SELFPAY ==
--- NOTE | 2024-12-17 11:29 | A.OFFPC_ITS ---
Vital Signs 12/17/24 11:38 12/17/24 12:20 Height 5 ft 1 in Weight 181 lb 2 oz BMI 34.2 BP 149/80 H 136/84 Blood Pressure Location Rt brachial Rt brachial Position Sitting Sitting Respiration 16 Pulse 94 Pulse Source Pulse Oximeter Temp 97.5 F Temp Source Oral Pulse Oximetry (%) 96 Oxygen Delivery Method Room Air Intake Visit Reasons: 1 mos HTN, labs review Intake Note: patient here for 1 month follow up on HTN and labs review Board Writer Required: No Is last menstrual period known: No Post menopausal: No Patient : No Allergies adhesive Allergy (Severe, Verified 12/17/24 12:12) Rash sulfide Allergy (Intermediate, Uncoded 12/17/24 12:12) Hives Medication List - Last Reconciled 12/17/24 by Wesley Sales CNP albuterol sulfate 90 mcg/actuation 2 inhalations inhalation Q6H PRN 30 days cholecalciferol (vitamin D3) 25 mcg PO DAILY 90 days diltiazem HCl CD (Cardizem CD) 300 mg PO DAILY furosemide 20 mg PO Q OTHER DAY PRN metoprolol succinate ER 25 mg PO DAILY multivitamin 1 tab PO DAILY potassium chloride ER (K-Tab) 20 mEq orally three times a week; 90 days Tobacco use date assessed: 12/17/24 Fall risk assessment: 2 + Falls in past year Last assessed Fall Risk: 12/17/24 Dental Screening Dental Screen Date: 12/17/24 Did you have a dental visit in the last 12 months?: No Did you have a dental problem in the last 6 months where you did not have access to dental care?: No Was dental information given to patient?: Patient has dentist HPI HPI Comments History of Present Illness Details 74-year-old female, accompanied by her apryl putnam, presents for hypertension and recent labs review follow-up. She admits to taking her medications as prescribed without adverse reactions. She offers no complaints and denies acute symptoms at this time. She was admitted at [facility] few months ago, but has not had an hospital discharge follow-up. Record not currently available. [facility] Medical History Levoscoliosis Osteoarthritis Dyspnea Breast cancer Pulmonary nodule Surgical History History of thoracentesis History of endoscopy Hx of colonoscopy History of knee replacement procedure of right knee History of knee replacement procedure of left knee S/P lumpectomy, right breast Family History Father Scoliosis Gout HTN (hypertension) CVA (cerebral vascular accident) Mother Colon cancer CHF (congestive heart failure) Anxiety Depression Migraine COPD (chronic obstructive pulmonary disease) Cancer HTN (hypertension) CVA (cerebral vascular accident) Son SMA (spinal muscular atrophy) Carotid artery aneurysm Anterior horn cell disease Other Uterine cancer Social History Household Members: Spouse Both parents involved: No Caregiver staying overnight: No Housing: Apartment Are you a primary healthcare corporate account director to a significant other at home: No Do you presently have visiting nurse or other home services: No Alcohol intake: current Alcohol intake frequency: a few times a week Alcohol type: wine Patient Tobacco Use Status: Never used Tobacco e-Cigarette/Vaping Use: Never Used Second Hand Smoke Exposure: No service: No Current occupational status: retired Current occupational exposures/hazards: No Cognitive needs: No Hearing needs: No Vision needs: No Questionnaire Thrive Questionnaire Date Thrive assessed: 06/05/24 I am a: Patient What is your living situation today?: I have a steady place to live Within the past 12 months, did the food you bought not last and you didn't have the money to get more?: Never true Within the past 12 months, did you worry whether your food would run out before you got money to buy more?: Never true Do you have trouble paying for medicines?: No Do you have trouble getting transportation to medical appointments?: No Do you have trouble paying your heating and electricity bill?: No Do you have trouble taking care of your child, family member or friend?: No Do you have trouble with day-to-day activities such as bathing, preparing meals, shopping, managing finances, etc.?: Yes Are you currently unemployed and looking for a job?: No Are you interested in more education?: No Please select the resources that you would like help with: None Currently or been in a relationship where the following occur: No concerns reported THRIVE Score: 0 DAVID-7 AMB Questionnaire DAVID-7 Date DAVID - 7 assessed: 11/16/24 Source: Developed by Drs. Chinmay Pedroza, Brigid Langston, Lucas Feng and colleagues, with an educational chris from [employer]. Review of Systems Const Details: Const Denies chills, Denies fatigue, Denies fever(s), Denies headache(s) and Denies weakness ENT Denies dizziness and Denies headache(s) Card Denies chest pain, Denies lightheadedness, Denies dyspnea and Denies other (Palpitations) Resp Denies cough, Denies dyspnea, Denies wheezing and Denies other ( shortness of breath) GI Denies abdominal pain, Denies melena, Denies hematochezia, Denies change in bowel habits, Denies dyspepsia and Denies nausea Denies hematuria and Denies dysuria Musc Denies abnormal gait, Denies myalgias, Denies arthralgias, Denies numbness and Denies tingling Skin/Breast Denies rash, Denies unusual bruising and Denies wounds Neuro Denies abnormal gait, Denies dizziness, Denies headache(s), Denies memory loss, Denies numbness, Denies Sensory deficit (Neuro), Denies tingling and Denies weakness Psych Denies anxiety, Denies depression, Denies memory loss Endo Denies cold intolerance, Denies fatigue, Denies heat intolerance, Denies polydipsia and Denies polyuria Aller/Immun Denies wheezing Physical exam (Primary Care) Vital Signs: Last Vital Signs Temp 97.5 F 12/17/24 11:38 Pulse 94 12/17/24 11:38 Resp 16 12/17/24 11:38 BP 149/80 H 12/17/24 11:38 Pulse Ox 96 12/17/24 11:38 Oxygen Delivery Method Room Air 12/17/24 11:38 BMI result Body Mass Index 34.2 Tobacco/Smoking Status: Tobacco use Status Tobacco use date assessed 12/17/24 12/17/24 11:41 Patient Tobacco Use Status Never used Tobacco 12/17/24 11:29 e-Cigarette/Vaping Use Never Used 12/17/24 11:29 Thrive Assessment: Date of Thrive Assessment Date Thrive assessed 06/05/24 12/17/24 11:29 Currently or been in a relationship where the following occur: No concerns reported Const Other: General: no acute distress and well developed Nutritional Appearance: well nourished Orientation/consciousness: patient oriented x3 HENMT Head: Yes normocephalic and Yes atraumatic Eyes General: appearance normal, both eyes and all related structures Pupils: Equal, round and reactive pupils present EOM: EOMs intact bilaterally Resp Effort & Inspection: normal respiratory effort Auscultation: clear to auscultation bilaterally Cardio Rate: regular rate Rhythm: regular rhythm Heart sounds: S1 normal heart sound present, S2 normal heart sound present, no gallops, no murmurs and no rubs GI Palpation (GI): No Abdominal aortic bruit present, Soft to palpation, nontender, No hepatosplenomegaly present and No Rebound tenderness present Auscultation: normal bowel sounds General: Yes no CVA tenderness Back/Spine/Pelvis Back: no CVA tenderness Cervical Spine: cervical ROM normal and No Cervical spine tenderness Thoracic/Lumbar Spine: thoraco-lumbar ROM normal, No pain with thoraco-lumbar ROM, No thoracic spinal tenderness and No lumbar spinal tenderness Extrem General: Yes normal to inspection, No edema and No calf tenderness Skin General: warm and dry. Normal skin color. Normal skin turgor Neuro General: patient oriented x3, gait normal and no focal neuro deficit Cranial nerves: Yes Equal, round and reactive pupils present Cognition (Neuro): normal cognition Gait exam (Neuro): Normal gait present Sensory Exam: No Sensory deficit (Neuro) Psych Appearance: grossly normal Affect: normal affect Attitude: cooperative Thought process: Normal thought process present Coding Level of Care Code Est Pt Level 4 (23796) Diagnoses Essential hypertension I10 Hyperlipidemia E78.5 Primary hyperparathyroidism E21.0 Assessment & Plan Assessment & Plan (1) Essential hypertension: Code(s): I10 - Essential (primary) hypertension Category: Medical Plan: Resting blood pressure is 136/84, within goal of less than 140/90. Continue current treatment regimen. Low-sodium diet encouraged. Follow-up in 1 month for hospital discharge follow-up. Front office advised to request discharge summary. Verbalized understanding and agreed with plan. (2) Hyperlipidemia: Code(s): E78.5 - Hyperlipidemia, unspecified Category: Medical Plan: Recent triglycerides, total cholesterol, and LDL levels are slightly elevated, 160, 217, and 107 respectively; previous levels were 148, 196, and 102 respectively. Advised to limit foods high in saturated fat and avoid foods high in trans fat. Routine exercise encouraged. Perform lipid panel blood work a few days before next visit. Follow-up in 3 months. Verbalized understanding and agreed with the plan. (3) Primary hyperparathyroidism: Code(s): E21.0 - Primary hyperparathyroidism Category: Medical Plan: Recent PTH is elevated, 104.1, previous level was 94.0. She notes that her PTH level fluctuates between normal to high. Recent vitamin-D level is normal. Will recheck PTH and check vitamin-D level. Advised to perform blood work at a different lab to compare results. Verbalized understanding and agreed with the plan. Orders: Orders Parathyroid Hormone Intact Today E21.0 - Primary hyperparathyroidism Calcium Today E21.0 - Primary hyperparathyroidism
[2024-12-17 11:38] VITALS: BP 149/80; PULSE 94; RESP 16; TEMP 36.4; O2SAT 96; BMI 34.2
[2024-12-17 12:20] VITALS: BP 136/84
== END 2024-12-17 12:38 | disposition home or self-care (01) ==
LOC: HO.HMCFM 11:25
PROVIDERS: PCP Nurse Practitioner Family; Visit Provider Nurse Practitioner Family
DX: I10 Essential (primary) hypertension (principal); E78.5 Hyperlipidemia, unspecified; E21.0 Primary hyperparathyroidism

== ENCOUNTER 2024-12-21 13:49 | Outpatient (AMB) | payer OTHER, SELFPAY ==
--- OUTSIDE RECORDS SUMMARY | 2024-05-10 10:00 | XMS_ITS ---
Author Organization [facility] Address [address] [place] [address] Care Team Providers Care Nurse Obgyn Name Role Phone Mónica LAU, Ana Primary Care Provider Unavail Manasa Wick Unavailable [phone] Aziza Maria [phone] Encounters Encounter Location Date Provider Diagnosis [address] [address] 05/10/2024 Aziza Maria Plan Of Treatment Next Appt Details Provider Name:Manasa jewell, 03/16/2025 09:00:00 AM, [address] [place], [address], Progress Notes * Sebastian BEJARANOOB:[birth year] (74 yo F)Acc No.[id number]:05/10/2024 Progress Notes Patient: Chela WEST Provider: Aiden Maria DPM :1950 A ge:73 Y S ex:Female Date:05/10/2024 Address:[address] [place] [address] [address] , [place], [place] Pcp:Ana Sales NP Subjective: * Chief Complaints: [...] 0 05/10/2024 Generated for Tamiko Glez/Karen on: 04:48 PM EDT
[2024-12-21 13:51] VITALS: BP 126/56; PULSE 88; O2SAT 96; BMI 34.4
--- NOTE | 2024-12-21 13:51 | MHC.OFFVIS ---
Vital Signs 12/21/24 13:51 Height 5 ft 1 in Weight 181 lb 14.102 oz BMI 34.4 BP 126/56 L Blood Pressure Location Lt brachial Position Sitting Pulse 88 Pulse Source Pulse Oximeter Pulse Oximetry (%) 96 Oxygen Delivery Method Room Air Intake Visit Reasons: Pulm Nodule Surgical Technologist Required: No Accompanied by: Self / Same As Patient Allergies adhesive Allergy (Severe, Verified 12/21/24 13:55) Rash sulfide Allergy (Intermediate, Uncoded 12/17/24 12:12) Hives HPI Comments Details: the patient is a 74-year-old woman with a known history of bronchiectasis in addition to breast cancer here for a follow-up visit. Apparently, the patient is having worsening respiratory symptoms including cough and chest congestion. At the time she was evaluated in [place] demonstrating evidence of bronchiectasis. The patient was worked up for the bronchiectasis. Had a negative sweat test for cystic fibrosis per the patient. She was found to have home that was infested with mold. That was felt to be the contributing factor. The patient did move out of the home. She was treated with respiratory medications. Did her symptoms improve. Subsequently after that she did have some chest discomfort. She did undergo a CT scan of the chest demonstrating a pulmonary nodule. The patient did have a repeat CT scan in [place] as well back in April [address] scan of the chest demonstrating that the pulmonary nodules to present although slightly smaller based on their technique. As far as the patient's breast cancer she was diagnosed with local breast cancer of the right breast. She did undergo lumpectomy and also underwent radiation therapy. The patient was placed on hormonal therapy, letrozole. The patient has been tolerating medicine. She does follow closely with her oncologist. In view of her breast cancer and history of pulmonary nodules the patient should have a CT scan of the chest to further evaluate the pulmonary nodule. Will request that in the fall of 2021. If the patient develops any worsening symptoms prior to that she is to call the office we can look at that CT scan at an earlier time. From a respiratory status the patient does have a cough is intermittent. And currently is mild. She does have a rescue inhaler that she uses. She also has an Acapella valve that she finds very effective. She does not have a nebulizer and has not use any hypertonic saline. The patient does states that she has been doing very well from a respiratory status. But, in the spring of this year she started developing worsening cough and shortness of breath was using her respiratory medication more often. Now, she is feeling little better. We did review her last pulmonary function studies done in [place] demonstrating no obstructive nor restrictive ventilatory defects. The patient did have a slight decrease maximum voluntary ventilation which could be secondary to deconditioning. She also had a significantly low expiratory reserve volume likely foreign body habitus. Her diffusion capacity was within normal limits. 01/09/2023 the patient is here for a pulmonary follow-up visit. Overall the patient has been doing well. She does complaint of dyspnea on exertion. Sometimes moderate in severity. She wishes she had a albuterol inhaler that she can use. We did talk about getting her a peak flow. I did going through the instructions on how to use it. She should use the peak flow while she is doing well and then subsequently which she has her up so she can measure her peak flow during those difficult times. And then at that point after that she can use her inhaler and then objectively measure her peak flow afterwards as well. The patient did have a CT scan of the chest that we personally reviewed. The patient has multiple calcified granulomas which are not concerning. She does have a 4 mm pulmonary nodule noncalcified on the left lung which appears to be unchanged from last year. Will go ahead and repeat the CT scan and another year to make sure there is to years of stable findings. She also has evidence of the bronchiectatic changes. She does have the Acapella valve that she can use as needed to clear secretions. At this point she does not much secretions. Will plan to repeat the CT scan next year and also perform pulmonary function studies. If her symptoms worsen though she is using her inhaler more often she can always call to get her PFTs done at an earlier time. 12/23/2023 the patient is here for pulmonary follow-up visit. Overall she is doing okay. Still having some dyspnea on exertion [id number] severity. No significant chest congestion her. Denies Having to use her inhaler. She uses it seldom. The patient did have a CT scan of the chest recently and was personally by me. Unfortunately has not been officially read yet. The patient has a very small 4 mm pulmonary nodule noted in the right lower lobe. I did visualize the CT scan and I did appreciate a nodule although measuring 2-3 mm in size in the right lower lobe. Will have to wait for the final read but at least it appears that the nodular changes have not worsened. In regards of the airways the patient does have still some chronic bronchitis looking airways some bronchiectatic changes. She does have an Acapella valve although she does not use it regularly as she does not make a lot significant mucus. She was supposed to undergo a PFT but the machine is currently not working. Will go ahead and reschedule her PFTs for next year since she is doing fairly well. Will plan to repeat the CT scan in a year's time to make sure follow-up with the pulmonary nodules in view of her history of breast cancer. 12/21/2024 the patient is here for pulmonary follow-up visit. The patient is recovering after having surgery few months ago. 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 She had been evaluated [place] and then subsequently transferred to [facility] where she had bowel resection with an ostomy surgery. She recovered well. She did have a thoracentesis for the left-sided pleural effusion. And subsequently after that the patient did recover well. She recently had a CT scan of the chest that was already prescheduled to follow-up with pulmonary nodules. Appeared that the left-sided pleural effusion subsided completely in her diaphragm came down nicely now allowing better aeration of both lungs. No significant nodules appreciated. Everything stable. No additional CAT scans warranted right now. She does have significant scoliosis. She did undergo pulmonary function studies demonstrating mild restriction but otherwise consistent with her scoliosis. The patient is doing well her breathing is a lot better since surgery. Now she is going to be following up with her surgical team to see about a reversible colostomy. [facility] Medical History Levoscoliosis Osteoarthritis Dyspnea Breast cancer Pulmonary nodule Surgical History History of thoracentesis History of endoscopy Hx of colonoscopy History of knee replacement procedure of right knee History of knee replacement procedure of left knee S/P lumpectomy, right breast Family History Father Scoliosis Gout HTN (hypertension) CVA (cerebral vascular accident) Mother Colon cancer CHF (congestive heart failure) Anxiety Depression Migraine COPD (chronic obstructive pulmonary disease) Cancer HTN (hypertension) CVA (cerebral vascular accident) Son SMA (spinal muscular atrophy) Carotid artery aneurysm Anterior horn cell disease Other Uterine cancer Social History Household Members: Spouse Both parents involved: No Caregiver staying overnight: No Housing: Apartment Are you a primary rn intensive care unit to a significant other at home: No Do you presently have visiting nurse or other home services: No Alcohol intake: current Alcohol intake frequency: a few times a week Alcohol type: wine Patient Tobacco Use Status: Never used Tobacco e-Cigarette/Vaping Use: Never Used Second Hand Smoke Exposure: No service: No Current occupational status: retired Current occupational exposures/hazards: No Cognitive needs: No Hearing needs: No Vision needs: No Review of Systems Const Denies fever(s) and Reports weight loss Eyes Denies loss of vision ENT Denies dizziness and Denies hearing loss Card Denies chest pain and Reports dyspnea on exertion Resp Denies cough, Denies excessive phlegm production, Reports dyspnea on exertion and Denies wheezing GI Reports as per HPI and Reports other (ostomy) Denies hematuria, Denies urinary frequency and Denies dysuria Musc Denies arthralgias and Denies muscle weakness Skin/Breast Denies nail changes and Denies rash Neuro Denies Abnormal speech present, Denies dizziness, Denies loss of vision and Denies memory loss Psych Denies depression and Denies memory loss Aller/Immun Reports seasonal rhinorrhea and Denies wheezing Physical Exam Vital Signs: Last Vital Signs Pulse 88 12/21/24 13:51 BP 126/56 L 12/21/24 13:51 Pulse Ox 96 12/21/24 13:51 Oxygen Delivery Method Room Air 12/21/24 13:51 BMI result Body Mass Index 34.4 Const General: comfortable HEENT Head: Yes normocephalic Neck Neck: Yes supple Chest Chest palpation & inspection: normal inspection of the chest Resp Effort & Inspection: normal respiratory effort Auscultation: clear to auscultation bilaterally Cardio Rate: regular rate Rhythm: regular rhythm Heart sounds: S1 normal heart sound present and S2 normal heart sound present GI Palpation (GI): Soft to palpation Skin General skin exam: no rashes or lesions noted Neuro Speech: No Abnormal speech present Extrem General: Yes no clubbing, cyanosis or edema Assessment & Plan Assessment & Plan (1) Pulmonary nodule: Code(s): R91.1 - Solitary pulmonary nodule Category: Medical (2) Bronchiectasis: Code(s): J47.9 - Bronchiectasis, uncomplicated Category: Medical Qualifiers: Bronchiectasis type: uncomplicated Qualified Code(s): J47.9 - Bronchiectasis, uncomplicated (3) Breast cancer: Code(s): C50.919 - Malignant neoplasm of unspecified site of unspecified female breast Category: Medical Qualifiers: Breast location: unspecified site of breast Estrogen receptor status: unspecified Laterality: right Patient sex: female Qualified Code(s): C50.911 - Malignant neoplasm of unspecified site of right female breast (4) Dyspnea: Code(s): R06.00 - Dyspnea, unspecified Category: Medical Qualifiers: Dyspnea type: dyspnea on exertion Qualified Code(s): R06.09 - Other forms of dyspnea Plan continue CPT with Acapella valve start Wixela x 1 month short-acting beta agonist as needed repeat CT scan of the chest-improved follow-up with Pulmonary in 12 months Medications: New fluticasone propion-salmeterol 250-50 mcg/dose (Wixela Inhub) 1 inh inhalation Q12H 60 ea 11RF 30 days fluticasone propion-salmeterol 250-50 mcg/dose (Wixela Inhub) 1 inh inhalation Q12H 60 ea 0RF 30 days Coding Level of Care Code Est Pt Level 4 (24477) Diagnoses Pulmonary nodule R91.1 Bronchiectasis without complication J47.9 Bronchiectasis type: uncomplicated Malignant neoplasm of right female breast, unspecified estrogen receptor status, unspecified site of breast C50.911 Breast location: unspecified site of breast Estrogen receptor status: unspecified Laterality: right Patient sex: female Dyspnea on exertion R06.09 Dyspnea type: dyspnea on exertion Time Spent (min) 17
--- OUTSIDE RECORDS SUMMARY | 2024-12-21 16:48 | XMS_ITS | Encounter Summary ---
Author Organization [facility] Address [address] [place] [phone] Phone Care Team Providers Care Head Esthetician Name Role Phone Yvonne Ann NP Primary Care Provider Encounter Details Date Type Department Care Team (Late st Contact Info) Description 08/08/2022 Procedure Pass [facility], [address] [address] Social History Tobacco Use Types Packs/Day Years [...] on filedocumented in this encounter Care Teams Head Esthetician Relationship Specialty Start Date End Date Yvonne Ann NP PCP - General Nurse Practitioner 07/11/22 documented as of this encounter Additional Source Comments The information contained in this document represents components of the legal health record. It is not the complete legal health record.[facility]
--- OUTSIDE RECORDS SUMMARY | 2024-12-21 16:48 | XMS_ITS | Patient Health Record ---
[facility] Organization [facility] Address [address] [place] [address] Care Team Providers Care Retort Furnace Operator Name Role Phone Mónica LAU, Ana Primary Care Provider Unavail able Manasa Santos Unavailable [phone] Aziza Maria Unavailable [phone] Allergies Allergen (clinical drug ingredient) Drug/Non Drug Allergy documented on EMR Reaction Allergy Type Onset Date Status adhesive tape (uncoded) Unknown Allergy Active sulfamethoxazole / trimethoprim Bactrim Unknown Drug Allergy Active Reason For Referral No Information Medications Medication SIG (Take, Route, Fr equency, Duration) Notes Start Date End Date Status dilTIAZem HCl Active Potassium Active Metoprolol Succinate Active Furosemide Active Albuterol Active Reclast Active Immunizations Vaccine Route Administration Date Status Comme nts Influenza Unknown 11/10/2024 Administered Social History Tobacco Use: Social History Observation Description Date Details (start date - stop date) Never Smoker NA - NA Tobacco use other than smoking: Question Answer Notes Are you an other tobacco user? No Tobacco Control (Standard) Question Answer Notes Tobacco use: Nonsmoker AUDIT-C (Standard) Question Answer Notes Did you have a drink contain ing alcohol in the past year? Yes How often did you have a dri nk containing alcohol in the past year? Never (0 point) How many drinks did you have on a typical day when you were drinking in the past year? 1 or 2 drinks (0 point) How often did you have six o r more drinks on one occasion in the past year? Never (0 point) Points 0 Interpretation Negative Problems Problem Type SNOMED Code ICD Code Onset Dates Problem Status W/U Status Risk Notes Problem Acquired hammer toe of right foot (5357012716498368) Other hammer toe(s) (acquired), right foot (M20.41) Active confirmed Problem Localized, primary osteoarthritis of the ankle and/or foot (121863457) Arthritis of joint of lesser toe, right (M19.071) Active confirmed Vital Signs Blood pressure diastolic 65 mm Hg 12/02/2024 Height 5ft 1in in 12/02/2024 Blood pressure systolic 126 mm Hg 12/02/2024 Weight 180 lbs 12/02/2024 BMI 34.01 kg/m2 12/02/2024 Encounters Encounter Location Date Provider Diagnosis [facility] [address] [place] [address] 12/02/2024 Manasa Lastaker Pain in right toe(s) M79.674 ; Other hammer toe(s) (acquired), right foot M20.41 ; Arthritis of joint of lesser toe, right M19.071 and Subluxation of metatarsophalangeal joint of toe, initial encounter S93.149A [facility] [address] [address] 05/03/2024 Aziza Maria [facility] [address] [place] [address] 11/25/2024 Manasa Santos Assessments Encounter Date Diagnosis (ICD Code) Assessment Notes Treatment Notes Treatment Clinical Notes Section Notes 12/02/2024 Pain in right toe(s) (ICD-10 - M79.674) 12/02/2024 Other hammer toe(s) (acquired), right foot (ICD-10 - M20.41) 12/02/2024 Arthritis of joint o f lesser toe, right (ICD-10 - M19.071) 12/02/2024 Subluxation of metatarsophalangeal joint of toe, initial encounter (ICD-10 - S93.149A) Plan Of Treatment Pending Test Test Name Order Date X ray : Foot, right 3V 12/02/2024 Next Appt Details Provider Name:Manasa Alonso best, 03/16/2025 09:00:00 AM, [address] [place], [address], Insurance Providers Payer Name Payer Address Payer Phone Subscriber Number Group Number Insured Name Patient Relationship to Insured Coverage Start Date Coverage End Date [id number] Claims [address] [address] [place] [id number] [phone] [id number] Wilmer dash Chela Self - patient is the insured 3 Medical (General) History Medical History History ICD Code Arthritis (OA, RA) Asthma Cancer Covid-19 Diverticulosis Gall Bladder High Blood Pressure Lung Disease Measles Mumps Joint implants/screws Transfusions Scoliosis Chicken Pox Levoscoliosis Dyspnea Pulmonary nodule Surgical History Surgery Date(Month/Year) ostomy lumpectomy double knee replacement gastric bypass gall bladder tubal ligation colonoscopy
--- OUTSIDE RECORDS SUMMARY | 2024-12-21 16:48 | XMS_ITS | Clinical Summary ---
Author Organization [facility] Address [address] [place] [address] Care Team Providers Care Accountant Manager Name Role Phone Pcp, No Primary Care [...] tablet by mouth daily. Active nystatin (MYCOSTATIN) [id number] UNIT/GM creamIndication s:Diverticuliti s Apply topically 2 [...] Encounters Date Type Department Care Team Description 11/24/2024 Orders Only [facility] Colorectal Surgery [address] [phone] Maral Oswald MD 11/24/2024 Scanned Document [facility] Colorectal Surgery [address] [address] Cristiano Staton MD 11/19/2024 11:20 AM EDT Clinical Support [facility] Colorectal Surgery [address] [address] Britany Jimenez RN 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) 11/19/2024 11:20 AM EDT Procedure visit [facility] Colorectal Surgery [address] [place] [address] Nayla Soliman PA-C 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); Diverticulitis 11/19/2024 Travel 11/11/2024 Scanned Document [facility] Colorectal Surgery [address] [place] [address] Nayla Solmian PA-C 10/15/2024 11:20 AM EDT Procedure visit [facility] Colorectal Surgery [address] [place] [address] Nayla Soliman PA-C 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); Psoas abscess (HCC) 10/15/2024 Travel 10/14/2024 Scanned Document [facility] Colorectal Surgery [address] [place] [address] Nayla Soliman PA-C 10/11/2024 1:00 PM EDT Telemedicine [facility] Department of Infectious Disease [address] [place] [address] Saray Gross MD Psoas abscess (HCC) (Primary Dx) 10/11/2024 Travel from Last 3 Months Social History Tobacco Use Types Packs/Day Years Used Date Smoking Tobacco: Never Assessed [facility] Utilities Answer Date Recorded In the past 12 months has [employer], gas, oil, or water [employer] threatened to shut off services in your [...] any time in the past 12 m [facility], were you homeless or living in a long-term (including now)? No 06/14/2024 Comments No Sex [...] 10:00 AM EDT Procedure visit [facility] Colorectal Surgery [address] [address] Nayla Soliman PA-C [address] [place] [address] 12/24/2024 10:00 AM EDT Procedure visit [facility] Colorectal Surgery [address] [phone] 12/24/2024 10:10 AM EDT Office Visit [facility] Colorectal Surgery [address] [phone] Cristiano Staton MD [address] [place] [address] Health Maintenance Due Date Last Done Comments Hepatitis C Virus Screening 1950 DTaP/Tdap/Td Vaccines (1 - Tdap) 1968 Mammogram 1989 Pneumococcal Vaccines 50+ (1 of 1 - PCV) 09/21/1999 Zoster (Shingles) Vaccine (1 of 2) 09/21/1999 DXA Bone Density (Females,Ages 65 and older) 2014 RSV Vaccine 60 years and older and Patients (1 - 1-dose 75+ series) 2024 Influenza Vaccine 10/08/2024 COVID-19 Vaccine ( - 2024- season) 2024 06/02/2020, 05/12/2020 Colonoscopy 11/24/2034 11/24/2024, 11/08, 11/24/2024, Additional history exists Advance Care Planning Completed 08/06/2024 Hepatitis B Vaccines Aged Out No long er eligible based on patient's age to complete this topic Procedures Procedure Name Priority Date/Time Associated Diagnosis Comments COLONOSCOPY (CC) Routine 11/24/2024 2:29 PM EDT COLONOSCOPY (CC) Routine 11/24/2024 2:25 PM EDT COLONOSCOPY (CC) Routine 11/24/2024 2:20 PM EDT COLONOSCOPY (CC) Routine 11/24/2024 2:17 PM EDT COLONOSCOPY (CC) Routine 11/24/2024 2:14 PM EDT COLONOSCOPY (CC) Routine 11/24/2024 2:09 PM EDT C-REACTIVE PROTEIN Routine 10/08/2024 11 :47 AM EDT Psoas abscess (HCC) ERYTHROCYTE SEDIMENTATION RATE (ESR) Routine 10/08/2024 11:47 AM EDT Psoas abscess (HCC) COMPLETE BLOOD COUNT, WITH DIFFERENTIAL Routine 10/08/2024 11:47 AM EDT Psoas abscess (HCC) from Last 3 Months Results * COLONOSCOPY (CC) (11/24/2024 2:29 PM EDT) External Provider AMB ORDERABLE PERFORMABLE F inal Result * COLONOSCOPY (CC) (11/24/2024 2:25 PM EDT) External Provider AMB ORDERABLE PERFORMABLE F inal Result * COLONOSCOPY (CC) (11/24/2024 2:20 PM EDT) External Provider MD AMB ORDERABLE PERFORMABLE F inal Result * COLONOSCOPY (CC) (11/24/2024 2:17 PM EDT) External Provider AMB ORDERABLE PERFORMABLE F inal Result * COLONOSCOPY (CC) (11/24/2024 2:14 PM EDT) External Provider AMB ORDERABLE PERFORMABLE F inal Result * COLONOSCOPY (CC) (11/24/2024 2:09 PM EDT) Maral Oswald MD AMB ORDERABLE PERFORMABLE Final Result * (ABNORMAL) Complete Blood Count, with Differential (10/08/2024 11:47 AM EDT) White Blood Cell Count 7.9 3.8 - 10.8 Thousand/ uL [facility] [employer] Red Blood Cell Count 4.10 3.80 - 5.10 Million/u L [facility] [employer] Hemoglobin 12.1 11.7 - 15.5 g/dL [facility] [employer] Hematocrit 39.3 35.0 - 45.0 % [facility] [employer] MCV 95.9 80.0 - 100.0 fL [facility] [employer] MCH 29.5 27.0 - 33.0 pg [facility] [employer] MCHC 30.8(L) 32.0 - 36.0 g/dL natue Comment: For adults, a slight decrease in the calculated MCHC value (in the range of 30 to 32 g/dL) is most likely not clinically significant; however, it should be interpreted with caution in correlation with other red cell parameters and the patient's clinical condition. RDW 12.8 11.0 - 15.0 % [facility] [employer] Platelet Count 337 140 - 400 Thousand/ uL [facility] [employer] MPV 9.1 7.5 - 12.5 fL [facility] [employer] Abs Neutrophils Auto 5,143 1,500 - 7,800 cells/uL [facility] [employer] Abs Lymphocytes Auto 1,928 850 - 3,900 cells/uL [facility] [employer] Abs Monocytes Auto 600 200 - 950 cells/uL [facility] [employer] Abs Eosinophils Auto 198 15 - 500 cells/uL [facility] [employer] Abs Basophils Auto 32 0 - 200 cells/uL [facility] [employer] Neutrophils Auto 65.1 % [facility] [employer] Lymphocytes Auto 24.4 % [facility] [employer] Monocytes Auto 7.6 % [facility] Eosinophils Auto 2.5 % [facility] Basophils Auto 0.4 % [facility] [employer] Blood Blood specimen / Unknown 10/08/2024 11:47 AM EDT 10/08/2024 11:47 AM EDT Narrative [facility] - 10/09/2024 12:53 AM EDT AN UPDATE OR CORRECTION HAS BEEN MADE TO NAME us Saray Gross MD LAB BLOOD ORDERABLES Final Result Performing Organization Address [facility] de Phone Number [facility] [address] [place] [address] * (ABNORMAL) Erythrocyte Sediment Rate (ESR) (10/08/2024 11:47 AM EDT) Erythrocyte Sediment Rate (ESR) 33(H) < OR = 30 mm/h natue Blood Blood specimen / Unknown 10/08/2024 11:47 AM EDT 10/08/2024 11:47 AM EDT Narrative [facility] - 10/09/2024 12:53 AM EDT AN UPDATE OR CORRECTION HAS BEEN MADE TO NAME us Saray Gross MD LAB BLOOD ORDERABLES Final Result Performing Organization Address [facility] de Phone Number [employer] [facility] [address] [place] [address] * C-Reactive Protein (10/08/2024 11:47 AM EDT) C-Reactive Protein 4.6 <8.0 mg/L natue Blood Blood specimen / Unknown 10/08/2024 11:47 AM EDT 10/08/2024 11:47 AM EDT Narrative [facility] - 10/09/2024 12:53 AM EDT AN UPDATE OR CORRECTION HAS BEEN MADE TO NAME us Saray Gross MD LAB BLOOD ORDERABLES Final Result Performing Organization Address [facility] de Phone Number [employer] [address] [place] [address] from Last 3 Months Insurance [facility] MEDICARE [facility] MEDIC[facility] Advance Directives Documents on File Type Date Recorded Patient Hydramatic Mechanic Expl anation Advance Directive-Scan 08/06/2024 CT AB DOMEN AND PELVIS W/ CONTRAST RESULTS TO ID Advance Directive-Scan 07/26/2024 ID AF TER VISIT SUMMARY/LABS * Full Code (Latest Code Status on File) Date Activated Date Inactivated Comments 06/12/2024 1:16 AM Question Answer Comments Decision Thoroughly Discussed with: Patient Care Teams Accountant Manager Relationship Specialty Start Date End Date Pcp, No PCP - General 07/16/24
--- OUTSIDE RECORDS SUMMARY | 2024-12-21 16:48 | XMS_ITS | Encounter Summary ---
Author Organization [facility] Address [address] [place] [address] Phone Care Team Providers Care Equipment Service Associate Name Role Phone Yvonne Ann NP Primary Care Provider Reason for Referral * MRI/CAT Scan - Closed Specialty Diagnoses / Procedures Referred By Contac t Referred To Contact Radiology Diagnoses Radiculopathy, thoracolumbar region Procedures MRI Lumbar Spine CHG MRI, LUMBAR SPINE CHG MRI, LUMBAR SPINE COMBTrae Rose DO Phone: tel: fax: mailto:[email or web address] Referral ID Status Reason Start Date Expiration Date Visits Re quested Visits Authorized [id number] Closed 09/07/2022 10/11/2022 1 1 * MRI/CAT Scan - Closed Specialty Diagnoses / Procedures Referred By Contac t Referred To Contact Radiology Diagnoses Radiculopathy, thoracolumbar region Procedures MRI Thoracic Spine CHG MRI, DORSAL SPINE CHG MRI, DORSAL SPINE CONTRAST CHG MRI, DORSAL SPINE Trae Stout DO Phone: tel: fax: mailto:[email or web address] Referral ID Status Reason Start Date Expiration Date Visits Re quested Visits Authorized [id number] Closed 09/07/2022 10/07/2022 1 1 Encounter Details Date Type Department Care Team (Latest Contact Info) Description 08/08/2022 Transcribe Orders Virtual Department [address] [place] [address] Trae Haynes, [address] [place] [address] [email or web address] Radiculopathy, thoracolumbar region (Primary Dx) Social History [...] suspicious marrow signal abnormalities. 13 mm T1, [id number] lesion within the body of T10 consistent [...] suspicious marrow signal abnormalities. 13 mm T1, [id number] lesion within the body of T10 consistent [...] region documented in this encounter Care Teams Equipment Service Associate Relationship Specialty Start Date End Date Yvonne Ann NP PCP - General Nurse Practitioner 07/11/22 documented as of this encounter Additional Source Comments The information contained in this document represents components of the legal health record. It is not the complete legal health record.[facility]
--- OUTSIDE RECORDS SUMMARY | 2024-12-21 16:48 | XMS_ITS | Encounter Summary ---
Author Organization [facility] Address [address] [facility] [address] [place] [address] Phone Care Team Providers Care Manager Contract Name Role Phone Yvonne Ann LEI SELLER Primary Care Provider Encounter Details Date Type Department Care Team (Late st Contact Info) Description 07/11/2022 Ancillary Orders [facility], X-Ray - [address] [address] Trae Haynes, DO [address] [place] [address] [email or web address] Scoliosis, unspecified scoliosis type, unspecified spinal region [...] region documented in this encounter Care Teams Manager Contract Relationship Specialty Start Date End Date Yvonne Ann NP PCP - General Nurse Practitioner 07/11/22 documented as of this encounter Additional Source Comments The information contained in this document represents components of the legal health record. It is not the complete legal health record.[facility]
--- OUTSIDE RECORDS SUMMARY | 2024-12-21 16:48 | XMS_ITS | Clinical Summary ---
Author Organization [facility] Address [address] [facility] [address] [place] [address] Phone Care Team Providers Care Utility Aircrewman Name Role Phone Yvonne Ann WELDING MACHINE OPERATOR HELPER GAS Primary Care Provider Allergies Active Allergy Reactions [...] Maternal Grandfather cor onary artery disease ; [place] AVM Mother Congenital arter iovenous malformation Colon [...] file Insurance MEDICARE PART A & B [facility] MEDICARE REPLACEMENT MEDICARE PART A & B [employer] PPO MEDICARE REPLACEMENT MEDICARE PART A & B MEDICARE PART A & B Member Subscriber Plan / Payer (Ef fective 2014-Present) Name:Chela Joseph Member ID:[id number] Relation to Subscriber:Self Name:Chela Joseph Subscriber ID:[id number] Payer ID:[id number] Group ID:Not on file Type:Medicare Address: [employer] [address] [place] [id number] MEDICARE PART A & B [employer] MEDICARE REPLACEMENT MEDICARE PART A & B [employer] PPO MEDICARE REPLACEMENT MEDICARE PART A & B [employer] PPO MEDICARE REPLACEMENT MEDICARE PART A & B MEDICARE PART A & B [employer] PPO MEDICARE REPLACEMENT Care Teams Utility Aircrewman Relationship Specialty Start Date End Date Yvonne Ann NP PCP - General Nurse Practitioner 07/11/22 Additional Source Comments The information contained in this document represents components of the legal health record. It is not the complete legal health record.[facility]
--- OUTSIDE RECORDS SUMMARY | 2024-12-21 16:49 | XMS_ITS | Encounter Summary ---
Author Organization [facility] Address [address] [facility] [address] [place] [address] Phone Care Team Providers Care Custom Frame Assembler Name Role Phone Yvonne Ann COLD TYPE COMPOSING MACHINE OPERATOR Primary Care Provider Encounter Details Date Type Department Care Team ([facility] st Contact Info) Description 11/28/2022 Ancillary Orders [facility] [address] [place] [address] Trae Haynes, DO [address] [place] [address] [email or web address] Social History Tobacco Use Types Packs/Day Years [...] on filedocumented in this encounter Care Teams Custom Frame Assembler Relationship Specialty Start Date End Date Yvonne Ann NP PCP - General Nurse Practitioner 07/11/22 documented as of this encounter Additional Source Comments The information contained in this document represents components of the legal health record. It is not the complete legal health record.[facility]
--- OUTSIDE RECORDS SUMMARY | 2024-12-21 16:49 | XMS_ITS | Encounter Summary ---
Author Organization [facility] Address [address] [place] [address] Care Team Providers Care Healthcare Representative Name Role Phone Pcp, No Primary Care Provider Unavailabl e Encounter Details Date Type Department Care Team ([facility] st Contact Info) Description 11/24/2024 Scanned Document [facility] Colorectal Surgery [place] [address] [address] Cristiano Staton MD [address] [facility] [address] [place] [address] Social History Tobacco Use Types Packs/Day Years Used Date Smoking Tobacco: Never Assessed [facility] Utilities Answer Date Recorded In the past 12 months has e electric, gas, oil, or water company [...] were you homeless or living in a assisted (including now)? No 06/14/2024 Comments No Sex [...] Description 12/24/2024 10:00 AM EDT Procedure visit [facility] Colorectal Surgery [address] [phone] Nayla Soliman PA-C [address] [address] 12/24/2024 10:00 AM EDT Procedure visit [facility] Colorectal Surgery [address] [phone] 12/24/2024 10:10 AM EDT Office Visit [facility] Colorectal Surgery [address] [phone] Cristiano Staton MD [address] [address] documented as of this encounter Visit Diagnoses Not on filedocumented in this encounter Care Teams Healthcare Representative Relationship Specialty Start Date End Date Pcp, No PCP - General 07/16/24 documented as of this encounter
--- OUTSIDE RECORDS SUMMARY | 2024-12-21 16:49 | XMS_ITS | Encounter Summary ---
Author Organization [facility] Address [address] [place] [address] Care Team Providers Care Training Program Assistant Name Role Phone Pcp, No Primary Care Provider Unavailabl e Encounter Details Date Type Department Care Team (Late st Contact Info) Description 11/11/2024 Scanned Document [facility] Colorectal Surgery [address] [address] Nayla Soliman PA-C [address] [phone] Social History Tobacco Use Types Packs/Day Years Used Date Smoking Tobacco: Never Assessed [facility] Utilities Answer Date Recorded In the [...] any time in the past 12 m [facility], were you homeless or living in a nursing home (including now)? No 06/14/2024 Comments No Sex [...] 12/24/2024 10:00 AM EDT Procedure visit [facility] Colorectal Surgery [address] [address] Nayla Soliman PA-C [address] [address] 12/24/2024 10:00 AM EDT Procedure visit [facility] Colorectal Surgery [address] [phone] 12/24/2024 10:10 AM EDT Office Visit [facility] Colorectal Surgery [address] [phone] Cristiano Staton MD [address] [place] [phone] [place] [address] documented as of this encounter Visit Diagnoses Not on filedocumented in this encounter Care Teams Training Program Assistant Relationship Specialty Start Date End Date Pcp, No PCP - General 07/16/24 documented as of this encounter
--- OUTSIDE RECORDS SUMMARY | 2024-12-21 16:49 | XMS_ITS | Encounter Summary ---
Author Organization [facility] Address [address] [place] [address] Care Team Providers Care Help Desk Internship Name Role Phone Pcp, No Primary Care Provider Unavailabl e Encounter Details Date Type Department Care Team (Late st Contact Info) Description 10/14/2024 Scanned Document [facility] Colorectal Surgery [address] [address] Nayla Soliman PA-C [address] [phone] Social History Tobacco Use Types Packs/Day Years Used Date Smoking Tobacco: Never Assessed [facility] Utilities Answer Date Recorded In the [...] any time in the past 12 m [facility], were you homeless or living in a halfway (including now)? No 06/14/2024 Comments No Sex [...] Description 12/24/2024 10:00 AM EDT Procedure visit [facility] Colorectal Surgery [address] [address] Nayla Soliman PA-C [address] [address] 12/24/2024 10:00 AM EDT Procedure visit [facility] Colorectal Surgery [address] [phone] 12/24/2024 10:10 AM EDT Office Visit [facility] Colorectal Surgery [address] [phone] Cristiano Staton MD [address] [place] [address] [place] [address] documented as of this encounter Visit Diagnoses Not on filedocumented in this encounter Care Teams Help Desk Internship Relationship Specialty Start Date End Date Pcp, No PCP - General 07/16/24 documented as of this encounter
--- OUTSIDE RECORDS SUMMARY | 2024-12-21 16:49 | XMS_ITS | Encounter Summary ---
Author Organization [facility] Address [address] [facility] [address] [place] [phone] Phone Care Team Providers Care Devulcanizer Tender Name Role Phone Yvonne Ann NP Primary Care Provider Encounter Details Date Type Department Care Team (Late st Contact Info) Description 08/08/2022 Procedure Pass [facility], [address] [address] Social History Tobacco Use Types Packs/Day Years [...] on filedocumented in this encounter Care Teams Devulcanizer Tender Relationship Specialty Start Date End Date Yvonne Ann NP PCP - General Nurse Practitioner 07/11/22 documented as of this encounter Additional Source Comments The information contained in this document represents components of the legal health record. It is not the complete legal health record.[facility]
--- OUTSIDE RECORDS SUMMARY | 2024-12-21 16:49 | XMS_ITS | Encounter Summary ---
Author Organization [facility] Address [address] [facility] [address] [place] [address] Phone Care Team Providers Care Cheese Cooker Name Role Phone Darrin Annia Jody JERKER Primary Care Provider Encounter Details Date Type Department Care Team (Late st Contact Info) Description 11/28/2022 Ancillary Orders [facility], X-Ray - [address] [address] Trae Haynes, DO [address] [place] [address] [email or web address] Pain in right hip Social History Tobacco [...] hip documented in this encounter Care Teams Cheese Cooker Relationship Specialty Start Date End Date Yvonne Ann NP PCP - General Nurse Practitioner 07/11/22 documented as of this encounter Additional Source Comments The information contained in this document represents components of the legal health record. It is not the complete legal health record.[facility]
== END 2024-12-21 15:17 | disposition home or self-care (01) ==
LOC: HO.HPS 13:50
PROVIDERS: PCP Nurse Practitioner Family; Visit Provider Hospitalist
DX: R91.1 Solitary pulmonary nodule (principal); J47.9 Bronchiectasis, uncomplicated; C50.911 Malignant neoplasm of unspecified site of right female breast; R06.09 Other forms of dyspnea
CPT/HCPCS: 99214

== ENCOUNTER 2025-01-18 12:56 | Outpatient (AMB) | payer OTHER, SELFPAY ==
--- NOTE | 2025-01-18 13:03 | MHC.PC.OV ---
Vital Signs 01/18/25 13:11 01/18/25 13:37 Height 5 ft 1 in Weight 184 lb 2 oz BMI 34.8 BP 173/74 H 150/80 H Blood Pressure Location Rt brachial Rt brachial Position Sitting Sitting Respiration 16 Pulse 96 Pulse Source Pulse Oximeter Temp 97.4 F Temp Source Oral Pulse Oximetry (%) 97 Oxygen Delivery Method Room Air Intake Visit Reasons: discharge from [facility] Intake Note: patient here for HDF from [facility] Nurse Informatics Educator Required: No Is last menstrual period known: No Post menopausal: No Patient : No Allergies adhesive Allergy (Severe, Verified 01/18/25 13:34) Rash sulfide Allergy (Intermediate, Uncoded 01/18/25 13:34) Hives Medication List - Last Reconciled 01/18/25 by Wesley Sales CNP albuterol sulfate 90 mcg/actuation 2 inhalations inhalation Q6H PRN 30 days cholecalciferol (vitamin D3) 25 mcg PO DAILY 90 days diltiazem HCl CD (Cardizem CD) 300 mg PO DAILY fluticasone propion-salmeterol 250-50 mcg/dose (Wixela Inhub) 1 inh inhalation Q12H 30 days fluticasone propion-salmeterol 250-50 mcg/dose (Wixela Inhub) 1 inh inhalation Q12H 30 days furosemide 20 mg PO Q OTHER DAY PRN metoprolol succinate ER 25 mg PO DAILY multivitamin 1 tab PO DAILY potassium chloride ER (K-Tab) 20 mEq orally three times a week; 90 days Tobacco use date assessed: 01/18/25 Fall risk assessment: 2 + Falls in past year Last assessed Fall Risk: 01/18/25 Dental Screening Dental Screen Date: 01/18/25 Did you have a dental visit in the last 12 months?: Yes Did you have a dental problem in the last 6 months where you did not have access to dental care?: No Was dental information given to patient?: Patient has dentist HPI HPI Comments History of Present Illness Details 74-year-old female, accompanied by her , presents for hospital discharge follow-up. She admits to taking her medications without adverse reactions. She notes that her blood pressure reading is usually elevated only at her PCP's office. Her home blood pressure averages is 130/90. Admitted to [facility] on 06/12/2024 between 07/02/2024. She first presented to [facility] on 06/12/2024 for muscle weakness, low energy, and swelling to her entire left leg, difficulty with walking. She notes that started 2 days days before she presented to the ED and gradually increased. She was transferred to [facility] ED the following day. She was discharged to [facility] from [facility], where she spent 31 days before she was discharged home on 08/06/2024. She notes that she was not able to ambulate due to swelling from psoas abscess but regained full mobility before discharging from the rehab. [facility] with [facility]. She has been feeling better she discharged from the rehab. 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 She is followed by Dr. Cristiano Staton, plate painter apprentice at [facility] who recently told her that the colostomy is irreversible. She states that her mobility is back to baseline. She notes that she feels better physically and mentally, and her mood has been stable. She offers no complaints and denies acute symptoms at this time. [facility] Medical History Levoscoliosis Osteoarthritis Dyspnea Breast cancer Pulmonary nodule Surgical History History of thoracentesis History of endoscopy Hx of colonoscopy History of knee replacement procedure of right knee History of knee replacement procedure of left knee S/P lumpectomy, right breast Family History Father Scoliosis Gout HTN (hypertension) CVA (cerebral vascular accident) Mother Colon cancer CHF (congestive heart failure) Anxiety Depression Migraine COPD (chronic obstructive pulmonary disease) Cancer HTN (hypertension) CVA (cerebral vascular accident) Son SMA (spinal muscular atrophy) Carotid artery aneurysm Anterior horn cell disease Other Uterine cancer Social History Household Members: Spouse Housing: Apartment Are you a primary certified social workers in health care to a significant other at home: No Do you presently have visiting nurse or other home services: No Alcohol intake: current Alcohol intake frequency: a few times a week Alcohol type: wine Patient Tobacco Use Status: Never used Tobacco e-Cigarette/Vaping Use: Never Used Second Hand Smoke Exposure: No service: No Current occupational status: retired Current occupational exposures/hazards: No Cognitive needs: No Hearing needs: No Vision needs: No Questionnaire Thrive Questionnaire Date Thrive assessed: 06/05/24 I am a: Patient What is your living situation today?: I have a steady place to live Within the past 12 months, did the food you bought not last and you didn't have the money to get more?: Never true Within the past 12 months, did you worry whether your food would run out before you got money to buy more?: Never true Do you have trouble paying for medicines?: No Do you have trouble getting transportation to medical appointments?: No Do you have trouble paying your heating and electricity bill?: No Do you have trouble taking care of your child, family member or friend?: No Do you have trouble with day-to-day activities such as bathing, preparing meals, shopping, managing finances, etc.?: Yes Are you currently unemployed and looking for a job?: No Are you interested in more education?: No Please select the resources that you would like help with: None Currently or been in a relationship where the following occur: No concerns reported THRIVE Score: 0 DAVID-7 AMB Questionnaire DAVID-7 Date DAVID - 7 assessed: 11/16/24 Source: Developed by Drs. Chinmay Pedroza, Brigid Langston, Lucas Feng and colleagues, with an educational chris from [employer]. Review of Systems Const Details: Const Denies chills, Denies fatigue, Denies fever(s), Denies headache(s) and Denies weakness ENT Denies dizziness and Denies headache(s) Card Denies chest pain, Denies lightheadedness, Denies dyspnea and Denies other (Palpitations) Resp Denies cough, Denies dyspnea, Denies wheezing and Denies other ( shortness of breath) GI Denies abdominal pain, Denies melena, Denies hematochezia, Denies change in bowel habits, Denies dyspepsia and Denies nausea Denies hematuria and Denies dysuria Musc Denies abnormal gait, Denies myalgias, Denies arthralgias, Denies numbness and Denies tingling Skin/Breast Denies rash, Denies unusual bruising and Denies wounds Neuro Denies abnormal gait, Denies dizziness, Denies headache(s), Denies memory loss, Denies numbness, Denies Sensory deficit (Neuro), Denies tingling and Denies weakness Psych Denies anxiety, Denies depression, Denies memory loss Endo Denies cold intolerance, Denies fatigue, Denies heat intolerance, Denies polydipsia and Denies polyuria Aller/Immun Denies wheezing Physical exam (Primary Care) Vital Signs: Last Vital Signs Temp 97.4 F 01/18/25 13:11 Pulse 96 01/18/25 13:11 Resp 16 01/18/25 13:11 BP 150/80 H 01/18/25 13:37 Pulse Ox 97 01/18/25 13:11 Oxygen Delivery Method Room Air 01/18/25 13:11 BMI result Body Mass Index 34.8 Tobacco/Smoking Status: Tobacco use Status Tobacco use date assessed 01/18/25 01/18/25 13:11 Patient Tobacco Use Status Never used Tobacco 01/18/25 13:08 e-Cigarette/Vaping Use Never Used 01/18/25 13:08 Thrive Assessment: Date of Thrive Assessment Date Thrive assessed 06/05/24 01/18/25 13:08 Currently or been in a relationship where the following occur: No concerns reported Const Other: General: no acute distress and well developed Nutritional Appearance: well nourished Orientation/consciousness: patient oriented x3 HENMT Head: Yes normocephalic and Yes atraumatic Eyes General: appearance normal, both eyes and all related structures Pupils: Equal, round and reactive pupils present EOM: EOMs intact bilaterally Resp Effort & Inspection: normal respiratory effort Auscultation: clear to auscultation bilaterally Cardio Rate: regular rate Rhythm: regular rhythm Heart sounds: S1 normal heart sound present, S2 normal heart sound present, no gallops, no murmurs and no rubs GI Palpation (GI): No Abdominal aortic bruit present, Soft to palpation, nontender, No hepatosplenomegaly present and No Rebound tenderness present Auscultation: normal bowel sounds Stoma: Stoma to left abdomen is pink and moist, overall, slightly protruding without overt infection General: Yes no CVA tenderness Back/Spine/Pelvis Back: no CVA tenderness Cervical Spine: cervical ROM normal and No Cervical spine tenderness Thoracic/Lumbar Spine: thoraco-lumbar ROM normal, No pain with thoraco-lumbar ROM, No thoracic spinal tenderness and No lumbar spinal tenderness Extrem General: Yes normal to inspection, No edema and No calf tenderness Skin General: warm and dry. Normal skin color. 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 Continue current treatment regimen. Follow-up with Gastroenterology as planned. Return for transfer of care with a new provider in 2 months or sooner with symptoms or concerns. Verbalized understanding and agreed with the plan. (2) Hospital discharge follow-up: Code(s): Z09 - Encounter for follow-up examination after completed treatment for conditions other than malignant neoplasm Category: Medical Plan: Plan as above. (3) Hypertension: Code(s): I10 - Essential (primary) hypertension Category: Medical Qualifiers: Hypertension type: primary hypertension Qualified Code(s): I10 - Essential (primary) hypertension Plan: Resting blood pressure is 150/80, above goal of less than 140/90. She notes that her blood pressure reading is usually elevated only at her PCP's office. Her home blood pressure averages is 130/90. White coat syndrome is likely. Continue current treatment regimen. Low sodium diet encouraged. Continue to monitor BP and report persistent reading above 140/40 with or without symptoms. Follow up as planned. Verbailzed understanding and agreed with the plan. (4) Hyperlipidemia: Code(s): E78.5 - Hyperlipidemia, unspecified Category: Medical Plan: Continue current treatment regimen. Fast for 10-12 hours, may drink water, and perform a few days before next visit. Verbalized understanding agreed with the plan. Orders: Orders Lipid Panel 2 Months E78.5 - Hyperlipidemia, unspecified
[2025-01-18 13:11] VITALS: BP 173/74; PULSE 96; RESP 16; TEMP 36.3; O2SAT 97; BMI 34.8
[2025-01-18 13:37] VITALS: BP 150/80
--- OUTSIDE RECORDS SUMMARY | 2025-01-18 14:41 | XMS_ITS | Encounter Summary ---
Author Organization [facility] Address [address] [place] [address] Phone Care Team Providers Care Certified Medical Technician Assistant Name Role Phone Yvonne Ann NP Primary Care Provider Reason for Referral * MRI/CAT Scan - Closed Specialty Diagnoses / Procedures Referred By Contac t Referred To Contact Radiology Diagnoses Radiculopathy, thoracolumbar region Procedures MRI Lumbar Spine CHG MRI, LUMBAR SPINE CHG MRI, LUMBAR SPINE COMBTrae Rose DO Phone: tel: fax: mailto:[email or web address] Referral ID Status Reason Start Date Expiration Date Visits Re quested Visits Authorized [id number] Closed 09/07/2022 10/11/2022 1 1 * MRI/CAT Scan - Closed Specialty Diagnoses / Procedures Referred By Contac t Referred To Contact Radiology Diagnoses Radiculopathy, thoracolumbar region Procedures MRI Thoracic Spine CHG MRI, DORSAL SPINE CHG MRI, DORSAL SPINE CONTRAST CHG MRI, DORSAL SPINE Trae Stout DO Phone: tel: fax: mailto:[email or web address] Referral ID Status Reason Start Date Expiration Date Visits Re quested Visits Authorized [id number] Closed 09/07/2022 10/07/2022 1 1 Encounter Details Date Type Department Care Team (Latest Contact Info) Description 08/08/2022 Transcribe Orders Virtual Department [address] [place] [address] Trae Haynes, [address] [place] [address] [email or web address] Radiculopathy, thoracolumbar region (Primary Dx) Social History [...] suspicious marrow signal abnormalities. 13 mm T1, [id number] lesion within the body of T10 consistent [...] suspicious marrow signal abnormalities. 13 mm T1, [id number] lesion within the body of T10 consistent [...] region documented in this encounter Care Teams Certified Medical Technician Assistant Relationship Specialty Start Date End Date Yvonne Ann NP PCP - General Nurse Practitioner 07/11/22 documented as of this encounter Additional Source Comments The information contained in this document represents components of the legal health record. It is not the complete legal health record.[facility]
--- OUTSIDE RECORDS SUMMARY | 2025-01-18 14:41 | XMS_ITS | Encounter Summary ---
Author Organization [facility] Address [address] [place] [address] Care Team Providers Care Choir Accompanist Name Role Phone Pcp, No Primary Care Provider Unavailabl e Encounter Details Date Type Department Care Team (Late st Contact Info) Description 11/11/2024 Scanned Document [facility] Colorectal Surgery [address] [address] Nayla Soliman PA-C [address] [phone] Social History Tobacco Use Types Packs/Day Years Used Date Smoking Tobacco: Never Assessed [facility] Utilities Answer Date Recorded In the past [...] any time in the past [address] [facility], were you homeless or living in a long term (including now)? No 06/14/2024 Comments No Sex [...] on filedocumented in this encounter Care Teams Choir Accompanist Relationship Specialty Start Date End Date Pcp, No PCP - General 07/16/24 documented as of this encounter
--- OUTSIDE RECORDS SUMMARY | 2025-01-18 14:41 | XMS_ITS | Clinical Summary ---
Author Organization [facility] Address [address] [place] [address] Care Team Providers Care Planning Analyst Name Role Phone Pcp, No Primary [...] tablet by mouth daily. 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) 12/24/2024 10:00 AM EDT Procedure visit [facility] Colorectal Surgery [address] [address] Britany Jimenez RN 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) 12/24/2024 10:00 AM EDT Procedure visit [facility] Colorectal Surgery [address] [place] [address] Nayla Soliman PA-C 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); Psoas abscess (HCC); Diverticulitis 12/24/2024 Travel 11/24/2024 Scanned Document [facility] Colorectal Surgery [address] [place] [address] Cristiano Staton MD 11/19/2024 11:20 AM EDT Clinical Support [facility] Colorectal Surgery [address] [place] [address] Britany Jimenez RN 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) 11/19/2024 11:20 AM EDT Procedure visit [facility] Colorectal Surgery [address] [place] [address] Nayla Soliman PA-C 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 No 06/14/2024 Comments No Sex and Gender Information Value Date Recorded Sex Assigned at Female 06/11/2024 7:46 PM EDT Legal Sex Female 4:36 PM EDT Gender Identity Female 06/11/2024 7:46 PM EDT Sexual Orientation Heterosexual (straight) 06/11 7:46 PM EDT Last Filed Vital Signs Vital Sign Reading Time Taken Comments Blood Pressure 126/82 12/24/2024 10:13 AM EDT Pulse 101 12/24/2024 10:13 AM EDT Temperature 35.8 C (96.4 F) 12/24/2024 10:13 AM EDT Respiratory Rate 18 11/19/2024 11:20 AM EDT Oxygen Saturation 98% 12/24/2024 10:13 AM EDT Inhaled Oxygen Concentration - - Weight 83 kg (183 lb) 12/24/2024 10:13 AM EDT Height 154.9 cm (5' 1 ) 12/24/2024 10:13 AM EDT Body Mass Index 34.58 12/24/2024 10:13 AM EDT Plan of Treatment Health Maintenance Due Date Last Done Comments Hepatitis C Virus Screening 1950 DTaP/Tdap/Td Vaccines (1 - Tdap) 1968 Pneumococcal Vaccines 50+ (1 of 1 - PCV) 09/21/1999 Zoster (Shingles) Vaccine (1 of 2) 09/21/1999 DXA Bone Density (Females,Ages 65 and older) 04/02/2023 04/02/2021 Mammogram 04/02/2023 04/02/2021, 03/01/2019 RSV Vaccine 50 years and older and Patients (1 - 1-dose 75+ series) 2024 COVID-19 Vaccine (3 - season) 2024 06/02/2020, 05/12/2020 Colonoscopy 11/24/2034 11/24/2024, 11/08, 11/24/2024, Additional history exists Advance Care Planning Completed 08/06/2024 Influenza Vaccine Completed 11/18/2024 Hepatitis B Vaccines Aged Out No long [...] COLONOSCOPY (CC) Routine 11/24/2024 2:09 PM EDT from Last 3 Months Results * COLONOSCOPY (CC) (11/24/2024 2:29 PM EDT) us External Provider AMB ORDERABLE PERFORMABLE F inal Result * COLONOSCOPY (CC) (11/24/2024 2:25 PM EDT) us External Provider AMB ORDERABLE PERFORMABLE F inal Result * COLONOSCOPY (CC) (11/24/2024 2:20 PM EDT) us External Provider AMB ORDERABLE PERFORMABLE F inal Result * COLONOSCOPY (CC) (11/24/2024 2:17 PM EDT) External Provider AMB ORDERABLE PERFORMABLE F inal Result * COLONOSCOPY (CC) (11/24/2024 2:14 PM EDT) External Provider AMB ORDERABLE PERFORMABLE F inal Result * COLONOSCOPY (CC) (11/24/2024 2:09 PM EDT) Maral Oswald MD AMB ORDERABLE PERFORMABLE Final Result from Last 3 Months Insurance [facility] [employer] Member Subscriber Plan / Payer (Ef fective 2020-Present) Name:Chela Giron Relation to Subscriber:Self Name:Chela Giron Payer ID:[id number] (NAIC) Type:Not on file Address: [address] [facility] MED[employer] MEDICARE Advance Directives Documents on File Type Date Recorded Patient Chair Car Attendant Expl anation Advance Directive-Scan 08/06/2024 CT AB DOMEN AND PELVIS W/ CONTRAST RESULTS TO ID Advance Directive-Scan 07/26/2024 ID AF TER VISIT SUMMARY/LABS * Full Code (Latest Code Status on File) Date Activated Date Inactivated Comments 06/12/2024 1:16 AM Question Answer Comments Decision Thoroughly Discussed with: Patient Care Teams Planning Analyst Relationship Specialty Start Date End Date Pcp, No PCP - General 07/16/24
--- OUTSIDE RECORDS SUMMARY | 2025-01-18 14:41 | XMS_ITS | Encounter Summary ---
Author Organization [facility] Address [address] [facility] [address] [place] [address] Phone Care Team Providers Care Transmission Rebuilder Name Role Phone Darrin Annia Jody RECEIVING TEAM MEMBER Primary Care Provider Encounter Details Date Type Department Care Team (Late st Contact Info) Description 11/28/2022 Ancillary Orders [facility], X-Ray - [address] [address] Trae Haynes, DO [address] [place] [address] [email or web address] Pain in right hip Social History Tobacco [...] hip documented in this encounter Care Teams Transmission Rebuilder Relationship Specialty Start Date End Date Yvonne Ann NP PCP - General Nurse Practitioner 07/11/22 documented as of this encounter Additional Source Comments The information contained in this document represents components of the legal health record. It is not the complete legal health record.[facility]
--- OUTSIDE RECORDS SUMMARY | 2025-01-18 14:41 | XMS_ITS | Data Portability ---
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 Management plan discussed with the CONTINUITY PERSON student personally. [email or web address] Not available 07/22/2024 12:27:30 07/29/2024 07/29/2024 I have seen and examined the patient independently and confirmed the findings above with the CONTINUITY PERSON student note. Management plan discussed with the CONTINUITY PERSON student personally. [email or web address] Not available 07/29/2024 12:16:20 08/03/2024 08/03/2024 Spent 30 reviewing records, seeing pt, consulting with staff and documenting [email or web address] Not available 08/03/2024 14:21:15 Plan of Treatment Reminders Order Date Submit Date Provider Last Modified By Organization Details Last Modified Time Details Appointments None recorded. Lab None recorded. Referral None recorded. Procedures None recorded. Surgeries None recorded. Imaging None recorded. Medication Orders Cardizem CD 300 mg capsule,ext ended release 2024 025 [facility] #60825, [address] [place], [place], [id number], 11:58:40 pantoprazol e 40 mg tablet,myrna yed release 2024 025 [facility] #80799, [address] [place] [address], [place], [id number], 11:58:42 famotidine 20 mg tablet 2024 [facility] #98479, [address] [place] [address], [place], [id number], 5 11:58:39 Eliquis 5 mg tablet 2024 [facility] #02520, [address], [place], [id number], 11:59:10 metoprolol tartrate 25 mg tablet 2024 [facility] #34982, [address], [place], [id number], 11:58:41 amoxicillin 875 mg-potassiu m clavulanate 125 mg tablet 2024 [facility] #17248, [address], [place], [id number], 11:58:43 escitalopra m 10 mg tablet 2024 [facility] #98973, [address], [place], [id number], 11:58:41 potassium chloride ER 20 mEq tablet,exte nded release 2024 [facility] #77922, [address], [place], [id number], 11:58:40 Patient TargetsNo targets recorded. Patient InstructionsNo instructions recorded. Reason for Referral None Reported. 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 2024 FELICIANO DEL ROSARIO NP [address] [facility], [address], [place], [address], [employer] 5 10:28:18 Asthenia 47283528 Active 2024 FELICIANO DEL ROSARIO NP [address] [facility], [address], [place], [address], [employer] 5 10:28:25 Pulmonary thromboembo lism 761525330 Active 2024 FELICIANO DEL ROSARIO NP [address] [facility], [address], [place], [address], [employer] [facility] 5 11:13:50 Acute deep venous thrombosis of left femoral vein 7474244958463 Active 2024 FELICIANO DEL ROSARIO NP [address] [facility], [address], [place], [address], [employer] 5 11:14:32 Anemia 132439543 Active 2024 FELICIANO DEL ROSARIO NP [address] [facility], [address], [place], [address], [employer] 5 11:14:44 Pleural effusion 27640157 Active 2024 FELICIANO DEL ROSARIO NP [address] [facility], [address], [place], [address], [employer] 5 11:15:34 Leukocytosi s 970011399 Active 2024 FELICIANO DEL ROSARIO NP [address] [facility], [address], [place], [address], [employer] 5 11:15:52 Upper gastrointes tinal bleeding 54008792 Active 2024 FELICIANO DEL ROSARIO NP [address] [facility], [address], [place], [address], [employer] 5 11:16:05 Essential hypertensio n 16542557 Active 2024 FELICIANO DEL ROSARIO NP [address] [facility], [address], [place], [address], [employer] [facility] 5 11:16:31 Body mass index 30+ - obesity 804660687 Active 2024 FELICIANO DEL ROSARIO NP [address], [address], [place], [address], [facility] [employer] [facility] 5 11:16:42 Neurofibrom a 033920606 Active 2024 FELICIANO DEL ROSARIO NP [address], [address], [place], [address], [facility] [employer] [facility] 5 11:16:53 History of malignant neoplasm of breast 546631314 Active 2024 FELICIANO DEL ROSARIO NP [address] [facility], [address], [place], [address], [facility] [employer] [facility] 5 11:17:02 History of osteopenia 646912618 Active 2024 FELICIANO DEL ROSARIO NP [address] [facility], [address], [place], [address], [facility] [employer] [facility] 5 11:17:11 Sinus tachycardia 59936133 Active 2024 FELICIANO DEL ROSARIO NP [address] [facility], [address], [place], [address], [facility] 5 11:17:19 Depressive disorder 20865726 Active 2024 FELICIANO DEL ROSARIO NP [address] [facility], [address], [place], [address], [facility] [employer] [facility] 5 11:23:05 Problem Notes None recorded. Medical Equipment None Reported. Allergies Allergen ID Allergen Name Allergen Category Reaction Reaction Severity Criticality Documentation Date Start Date Code Code System Note Provider Name and Address Organization Details Recorded Time 16194 Substance with sulfonami de structure and antibacte rial mechanism of action (substanc e) medicatio n Not available Not available Not available 07/03/2024 67124 8003 SNOMED hives FELICIANO DEL ROSARIO NP [address] [facility], [address], [place], [address], [facility] 5 10:28:54 38018 adhesive tape environme nt,medica tion Not available Not available Not available 07/03/2024 rash FELICIANO DEL ROSARIO NP [address] [facility], [address], [place], [address], [facility] 5 10:29:45 85637 wheat preparati on food,medi cation Not available Not available Not available 07/03/2024 50385 52 RxNorm sneez ing FELICIANO DEL ROSARIO NP [address] [facility], [address], [place], [address], [employer] [facility] 10:30:31 Medications Name Sig Start Date Stop Date Status Note LastModified by Organization Details LastModified Time famotidine 20 mg tablet Take 1 tablet twice a day by oral route as directed for 30 days, for GIB. 2024 active Not Available Not Available Not Avai lable Cardizem CD 300 mg capsule,exten ded release Take 1 capsule every day by oral route as directed for 30 days, for tachycardi a. 2024 active Not Available Not Available Not Avai lable pantoprazole 40 mg tablet,delaye d release Take 1 tablet twice a day by oral route as directed for 30 days, for GIB. 2024 active Not Available Not Available Not Avai lable amoxicillin 875 mg-potassium clavulanate 125 mg tablet Take 1 tablet every 12 hours by oral route as directed for 30 days, for Psoas Abscess. 2024 active Not Available Not Available Not Avai lable escitalopram 10 mg tablet Take 1 tablet every day by oral route as directed for 30 days, for depression . 2024 active Not Available Not Available Not Avai lable metoprolol tartrate 25 mg tablet Take 1 tablet twice a day by oral route as directed for 30 days, for HTN. 2024 active Not Available Not Available Not Avai lable Eliquis 5 mg tablet TAKE 1 TABLET BY MOUTH TWICE DAILY active Not Available Not Available No t Available potassium chloride ER 20 mEq tablet,extend ed release TAKE 1 TABLET BY MOUTH EVERY DAY DIRECTED FOR LOW POTASSIUM active Not Available Not Available No t Available Vitals None Recorded Social History Question Answer Notes LastModified by Organizat ion Details LastModified Time Tobacco Smoking Status Never Smoker FELICIANO DEL ROSARIO NP [address] [facility], [address], [place], [address], [employer] [facility] 07/03/2024 11:47:08 What Is Your Code Status? Full Code [email or web address] Information not available 07/03/2024 Where Do You Live? Apartment With , Supportiv e, 3 Steps To Enter [email or web address] Information not available 07/03/2024 What Was The Date Of Your Most Recent Tobacco Screening? 07/03/2024 [email or web address] Information not available 07/03/2024 Do You Have An Out Of Hospital DNR? Yes [email or web address] Information not available 07/03/2024 Has Tobacco Cessation Counseling Been Provided? No [email or web address] Information not available 07/03/2024 Sex: Unknown Functional Status Question Answer Note LastModified by Organizat ion Details LastModified Time Do you use any illicit or recreational drugs? No Information not available 07/03/2024 Do you or have you ever used any other forms of tobacco or nicotine? No [email or web address] Information not available 07/03/2024 What is your level of alcohol consumption? None [email or web address] Information not available 07/03/2024 Mental Status None recorded. Family History Relationship Description Onset Age of this Age Resolved Age Notes LastModified by Organization Details LastModified Time Mother Heart disease [email or web address] Not available 2024 11:46:30 Mother Cerebrovascu lar accident [email or web address] Not available 11:46:44 Mother Malignant neoplastic disease Not available 2024 11:46:53 Father Heart disease Not available 2024 11:46:30 Father Cerebrovascu lar accident [email or web address] Not available 11:46:44 Medical History No medical history recorded. Gynecological HistoryNo gynecological history recorded. Obstetrics History GPAL:G 0 P 0 0 0 0 Immunizations Vaccine Type Date Status Note Provider Nam e and Address Organization Details Recorded Time Respiratory syncytial virus (RSV) MAB, unspecified 3 completed Mansoor gonzalez [facility] 07/06/2024 12:55:43 Tdap 4 completed Mansoor gonzalez [facility] 07/06/2024 12:55:54 Pneumococcal conjugate PCV 13 5 completed Mansoor gonzalez [facility] 07/06/2024 12:56:06 Pneumococcal conjugate PCV 13 2 completed Mansoor gonzalez [facility] 07/06/2024 12:56:10 influenza, unspecified formulation 1 completed Mansoor Jacks-Uribe null, [facility] 07/06/2024 12:56:55 influenza, unspecified formulation 2 completed Mansoor Jacks-Uribe null, [facility] 07/06/2024 12:57:00 influenza, unspecified formulation 3 completed Mansoor Jacks-Uribe null, [facility] 07/06/2024 12:57:04 influenza, unspecified formulation 4 completed Mansoor Jacks-Uribe null, [facility] 07/06/2024 12:57:08 SARS-COV-2 (COVID-19) vaccine, UNSPECIFIED 1 completed Mansoor Jacks-Uribe null, [facility] 07/06/2024 12:57:19 SARS-COV-2 (COVID-19) vaccine, UNSPECIFIED 1 completed Mansoor Jacks-Uribe null, [facility] 07/06/2024 12:57:24 SARS-COV-2 (COVID-19) vaccine, UNSPECIFIED 1 completed Mansoor Jacks-Uribe null, [facility] 07/06/2024 12:57:28 SARS-COV-2 (COVID-19) vaccine, UNSPECIFIED 2 completed Mansoor Jacks-Uribe null, [facility] 07/06/2024 12:57:33 SARS-COV-2 (COVID-19) vaccine, UNSPECIFIED 2 completed Mansoor Jacks-Uribe null, [facility] 07/06/2024 12:57:36 SARS-COV-2 (COVID-19) vaccine, UNSPECIFIED 3 completed Mansoor Jacks-Uribe null, [facility] 07/06/2024 12:57:40 SARS-COV-2 (COVID-19) vaccine, UNSPECIFIED 3 completed Mansoor Jacks-Uribe null, [facility] 07/06/2024 12:57:44 SARS-COV-2 (COVID-19) vaccine, UNSPECIFIED 4 completed Mansoor Jacks-Uribe null, [facility] 07/06/2024 12:57:48 SARS-COV-2 (COVID-19) vaccine, UNSPECIFIED 4 completed Mansoor De Santiago [facility] 07/06/2024 12:57:53 Pneumococcal conjugate PCV 13 7 completed Mansoor De Santiago [facility] 07/06/2024 12:58:03 zoster, unspecified formulation 9 completed Mansoor Anyi [facility] 07/06/2024 12:58:16 zoster, unspecified formulation 9 completed [facility] Anyi [facility] 07/06/2024 12:58:20 zoster, unspecified formulation 9 completed [facility] Any[facility] 07/06/2024 12:58:24 Past Encounters Encounter ID Performer Location Encounter Start Date Encounter Closed Date Diagnosis/Indication Diagnosis SNOMED-CT Code Diagnosis ICD10 Code Diagnosis IMO Codes Diagnosis Note [id number] FELICIANO DEL ROSARIO NP [place] AT [address] [address] 07/03/2024 10:27:03 07/09/2024 11:18:48 Iliopsoas abscess [id number] K68.[id number], underwent an exp. lap, sigmoidect simi, ostomy creation, retroperit terry abscess washout with GEORGE drain placement on 06/[address] Cristiano Staton.Mo nitor VS, labs, GI sx., pain, incisionAP AP prn painUpdate surgeon with concerns, follow up prn. No specific orders for follow up on D/C summary but assume she will need follow up within the next few weeks.Cont inue Low fiber diet, encourage poContinue Ostomy care and teachingCB C, BMP q mond. x 3 Pulmonary thromboembolism 856727196 I26.99 116867 Continue eliquis 5 mg bidMonitor VS, labs, bleeding risk Acute deep venous thrombosis of left femoral vein 4207980021 66269 I82.412 08989859 Continue eliquis 5 mg bidMonitor VS, labs, bleeding risk Anemia 414122990 D64.9 5723110242 Required multiple transfusio ns in the [facility] Hgb. 8.2 on 07/01Monito r CBC q mond. x 3 and prnContinu e pepcid and PPIHigher risk of bleed due to AC use. Pleural effusion 1358742 8 J90 833206 s/p thoracente sis, 700 ml of fluid.Taylor tor VS, sats, labs, resp. status Upper gastrointestinal bleeding 24062532 K92.2 176862 Concerning in hosp.CT done showing increase in size of intra abdominal fluid collection , possible anastomoti c stenosis/s tricture, and fluid filled esophagus. 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 Clips placed at the sites of the ulcers.Con tinue:Pepc id 20 mg bidPantopr azole 40 mg bid x 6 wksMonitor VS, labs, GI statusUpda te GI (Dr. Weinberg) with concerns, follow up prn Asthenia 93994796 R53.1 95439 PT OT eval and tx.Very deconditio janet due to acute illness and prolonged hosp.Goal is to return home. Essential hypertension 26391875 I10 29320 Continue metoprolol and cardizem as above.Taylor tor VS, adjust doses prn. Sinus tachycardia 256826 01 R00.0 3924 Continue:m etoprolol 25 mg bid (dose changed in hosp. from XL 100 mg qd)Diltiaz em CD 300 mg qd (appears she may have been on 60 mg qid in hosp., but will continue home dose here). Leukocytosis 465781718 D 72.828 70855392 Continue augmentin 875 mg bid until 07/16Follow up with ID (Dr. Gross) in 1 month as per d/c summaryWBC trending down in hosp.Monit or VS, labs, S/S infection. Depressive disorder 3156 9007 F32.A 24250 Continue escitalopr am 10 mg qdMonitor mood, behaviors. History of osteopenia 47 2500520 Z87.39 3788452 Continue Vit D 1000 U qd. [id number] Josue GODINEZ AT [address] [address] 07/07/2024 11:07:33 07/09/2024 12:59:32 Iliopsoas abscess 607238630 K68.[id number], underwent an exp. lap, sigmoidect simi, ostomy creation, retroperit terry abscess washout with GEORGE drain placement on 06/[address] Cristiano Staton.Co ntinue augmentin BID until 5/5f/u colorectal surgery in [place] 07/16; SW to help coordinate transporta tionContin ue Low fiber diet, encourage poContinue Ostomy care and teachingMo nitor VS, labs, GI sx., pain, incisionUp date surgeon with concerns Anemia 000969114 D64.9 3135105905 stable on admit labsLast Hgb. 8.2 on 07/01Contin ue pepcid and PPI x 6 weeksHighe r risk of bleed due to AC use.monito r CBC Leukocytosis 123815190 D 72.828 48353920 Continue augmentin 875 mg bid until 5/5Follow up with ID (Dr. Gross) in 1 month as per d/c summaryWBC trending downMonito r VS, labs, S/S infection. Decrease in appetite 643 62274 R63.0 95191 continue weekly weightsdie tary to follow PRNmet with hotel assistant manager to review different options [id number] MD HERBERT Ortega AT [address] [address] 07/11/2024 10:35:51 07/13/2024 13:18:47 Iliopsoas abscess [id number] K68.12 [id number] see HPI s/p washoutfol low surgery recs and update with concernswo und care to follow at facilityma intained on augmentina dd probiotic Pulmonary thromboembolism 509795007 I26.99 154478 see HPILLE DVT acutenow on eliquis 5 mg bidmonitor for bleeding with recent concern for upper GI bleed Acute deep venous thrombosis of left femoral vein 9475061911 58402 I82.412 84657416 LLE DVTsee above Anemia 201753870 D64.9 0451952279 see above required tx post op with GI bleedmonit or cbc now again on AC Upper gastrointestinal bleeding 91171202 K92.2 957249 s/p EGD with clip placement now onpantopra zole 40 mg bidpepcid 20 mg bidmonitor cbcupdate GI with concerns Asthenia 05084278 R53.1 44852 PT OT eval and treatmonit or fall risk and need for increased support in community Essential hypertension 49157113 I10 77811 ,metoprolo l 25 mg bidcardize m 300 mg qdmonitor bp and need to titrate Sinus tachycardia 279634 01 R00.0 3924 carrying dxon above medication s Diverticul itis of intestine 025769077 K57.92 88328664 see HPIostomy now in placemonit or siteupdate surgery with concerns [id number] Jonny_Carmelinalukas CrCasey GODINEZ AT [address] [address] 07/14/2024 09:41:37 07/16/2024 10:49:59 Iliopsoas abscess 440342725 K68.12 83749 s/p exp. lap, sigmoidect simi, ostomy creation, retroperit terry abscess washout placement on 06/[address] Cristiano Staton.f/ u colorectal surgery in [place] 07/16 to transportC ontinue Low fiber diet, encourage poContinue Ostomy care and teachingMo nitor VS, labs, GI sx., pain, incisionSc heduled ID consult pending patient wishes to see ID in [place]. She will arrange apt and inform staff. Liver enzy mes level above reference range 286039022 R74.8 140683 Patient noted to have mildly elevated ALT and ASTTrendin g labs and correlatin g with patientRep eat labs in 1 week. Edema of l ower extremity 471481970 R60.0 96909 1-2 + mild pitting edema noted of new concern to patient.Hi story of mild edema in pastPlan is to order toshia stockings for placement. Patient will increase mobility as tolerated Dehiscence of surgical wound 33988403 T81.31XA 1485554 small area of wound dehiscence under ostomy bag (noted with ostomy bag change)min imal amount of slough, no drainagewo und care followings MAR for ordersf/u surgery friday [id number] Josue GODINEZ AT [address] [address] 07/15/2024 12:07:12 07/19/2024 14:23:52 Candidiasis 33747267 B37.9 620714 surroundin g stomastart fluconazol e 150mg qd x 7 daysmonito r for resolution Colostomy present 232637 009 Z93.3 584181 with increased surroundin g skin irritation and roseline infectionf /u surgery tomorrow [id number] Josue GODINEZ AT [address] [address] 07/20/2024 08:10:57 07/22/2024 16:54:30 Hypokalemia 28301505 E87.6 9791 K 3.0given K chlor 40 meq now and repeat tomorrowre peat labs Leukocytosis 721122745 D 72.829 690960 mild on recent labs; augmentin completed 07/12now with RLQ pain and crampingRe start Augmentin 875mg BID x 10 daysFollow up with ID (Dr. Gross) in- awaiting return call to schedule f/uMonitor VS, labs, S/S infectionR epeat CBC Low back pain 960215207 M54.50 4090968988 Patient with mild lower back pain. Denies trauma. no numbness or paresthesi asPatient requesting biofreeze topicalOrd ered q4h PRN Iliopsoas abscess 760321 007 K68.12 88569 s/p exp. lap, sigmoidect simi, ostomy creation, retroperit terry abscess washout placement on 06/[address] Cristiano Staton.f/ u colorectal surgery in [place] fridayrest art augmentin 875mg BID x 10 daysawaiti ng return call from ID to schedule f/uContinu e Low fiber diet, encourage poContinue Ostomy care and teachingMo nitor VS, labs, GI sx., pain, incision [id number] Josue GODINEZ AT [address] [address] 07/22/2024 09:57:19 07/26/2024 11:38:46 Iliopsoas abscess 206666990 K68.12 68122 s/p exp. lap, sigmoidect simi, ostomy creation, retroperit terry abscess washout placement on 06/[address] Cristiano Staton[address] follow up appointmen t with surgeon she is to restart augmentin 875mg BID x 10 dayssecond jm to abd pain, leukocytos is and mild surgical wound dehiscence appointmen t with ID at patients facility of choice on Friday07/26/24Con tinue Low fiber diet, encourage poContinue Ostomy care and teachingMo nitor VS, labs, GI sx., pain, incision Hypokalemia 60502034 E87 .6 9791 K 3.0given K chlor 40 meq x 2 daysrepeat labs not done, will order for friday since she had apt early tomorrow Leukocytosis 979273841 D 72.829 689400 Restart Augmentin 875mg BID x 10 days after follow up with surgeon for RLQ tenderness / pain pending ID consult.Fo llow up with ID (Dr. Gross) Friday07/26/24Mon itor VS, labs, S/S infectionR epeat CBC friday Low back pain 017399457 M54.50 9037751742 Continue biofreeze topical q4h PRNPatient has no complaints of pain to her lower back today. Swollen knee region 2484 12743 M25.462 807524 Post fall while working with physical therapy. Lowered to ground on both knees.Now with L knee swelling, redness and warmthCMS intact distalPain with weight bearing and palpation of patellaX ray ordered r/o fracture or effusion Abrasion a nd/or friction burn of skin 402961397 T14.8XXA 443081 Post lowering to ground/ fall while working with physical therapySma ll abrasion noted to right knee secondary to fallWound care aware; dressing in place, no shadowing or drainageNo associated redness, swelling or warmth. [id number] Josue BEELEY AT [address] [address] 07/27/2024 08:08:03 07/28/2024 19:18:01 Iliopsoas abscess [id number] K68.12 [id number] s/p exp. lap, sigmoidect simi, ostomy creation, retroperit terry abscess washout placement on 06/[address] Cristiano Staton.ID plans to repeat CT abdomen/pe lvis; continue augmentin 875-125mg BID until f/u IDStart probiotic BIDFollow up ID apt was done Friday07/26/24 (See HPI for recommenda tions)Cont inue Low fiber diet, encourage poContinue Ostomy care and teaching, change ostomy q3 daysMonito r VS, labs, GI sx., pain, incision Hypokalemia 01118257 E87 .6 9791 Repeat labs on 07/26 - K 3.6encoura ged increased potassium rich foodsmonit or loose ostomy outputmoni tor symptoms and reassess BMP as needed. Leukocytosis 368778773 D 72.829 027700 Continue Augmentin 875mg BID at request of ID (Dr. Gross on Friday07/26/24) pending repeat CT of adb and pelvis as orderedMon itor VS, labs, S/S infectionR epeat CBC friday Swollen knee region 2484 92585 M25.462 061474 x-ray unremarkab le for acute fractureSw elling resolved Colostomy present 915889 009 Z93.3 261594 Improvemen t in surroundin g skin irritation and roseline infectionF ollow up with surgery completed on 07/23contin ue ostomy care and change appliance q3 daysnoted that patient condition is much improved since last visitretur n in 1 week for follow up Pain of hip region 36929 002 M25.552 104205 seen by PMR with recs for imagingOrd er STAT L hip x-ray [id number] Jonny_Tonia GODINEZ AT [address] [address] 07/29/2024 09:33:47 07/30/2024 13:29:01 Colostomy present [id number] Z93.3 543233 Ostomy site; surroundin g skin irritation and roseline infection- resolvedco ntinue ostomy care and change appliance q3 daysPatien t to follow up with colorectal surgery tomorrowSe e HPI for comments on ostomy supplies Pain of hip region 13672 002 M26.706 982046 Patient with reports of L hip pain a few days after fall with physical therapyNEG ATIVE - STAT L hip x-ray [id number] Josue GODINEZ AT [address] [address] 08/03/2024 12:36:48 08/09/2024 15:18:01 Colostomy present [id number] Z93.3 093542 Ostomy site; surroundin g skin irritation with leakagecon tinue ostomy care and change appliance q3 daysStaff to have patient participat e with routine changesPat ient to follow up with colorectal surgery HPI for comments on ostomy supplies Hypokalemia 32234808 E87 .6 9791 Likely related to GI lossesGive potassium chloride 40meq now and qd x 2 daysencour aged increased potassium rich foodsmonit or loose ostomy outputmoni tor symptoms and reassess BMP as needed. Iliopsoas abscess 724453 007 K68.12 62132 s/p exp. lap, sigmoidect simi, ostomy creation, retroperit terry abscess washout placement on 06/[address] Cristiano Staton.Re peat CT abdomen/pe lvis tomorrow; continue augmentin 875-125mg BID until f/u IDContinue probiotic BIDContinu e Low fiber diet, encourage poContinue Ostomy care and teaching, change ostomy q3 daysMonito r VS, labs, GI sx., pain, incision [id number] Josue GODINEZ AT [address] [address] 08/05/2024 08:25:15 08/09/2024 16:23:24 Iliopsoas abscess [id number] K68.12 88047 s/p exp. lap, sigmoidect simi, ostomy creation, retroperit terry abscess washout placement on 06/[address] Cristiano Staton.f/ u ID for CT abdomen/pe lvis done 08/04; continue augmentin 875-125mg BID until f/u IDContinue probiotic BIDContinu e Low fiber diet, encourage poContinue Ostomy care and change ostomy q3 daysf/u colorectal surgery and ID as planned Colostomy present 053292 009 Z93.3 994208 Ostomy site; surroundin g skin irritation with leakagecon tinue ostomy care and change appliance q3 daysf/u colorectal surgery Sunday 08/06 for scripts for supplies Hypokalemia 00051969 E87 .6 9791 Likely related to GI lossesrepl aced 40meq x 3 days, needs f/u BMP outpatient in 1 weekwill start K chlor 20meq qdencourag ed increased potassium rich foodsmonit or loose ostomy outputmoni tor symptoms and reassess BMP as needed. Pain of hip region 80348 002 M25.552 425061 x-ray unremarkab le for acute fracture Leukocytosis 804081396 D 72.829 468409 Resolved with resuming Augmentin per IDmonitor CBC outpatient Swollen knee region 2484 98482 M25.462 228066 x-ray unremarkab le for acute fractureSw elling resolved Low back pain 295312825 M54.50 3699669214 Continue biofreeze topically PRN Abrasion a nd/or friction burn of skin 644057128 T14.8XXA 541854 resolved Candidiasis 71718499 B37 .9 399365 surroundin g stomacompl eted fluconazol e 150mg qd x 7 daysmonito r for recurrence Dehiscence of surgical wound 13918588 T81.31XD 7806864 significan t improvemen tno sxs infection Liver enzy mes level above reference range 857024418 R74.8 683682 Patient noted to have mildly elevated ALT and ASTcontinu e trending labs outpatient with PCP Edema of l ower extremity 691876348 R60.0 12100 continue compressio n stockings PRN Pulmonary thromboembolism 514489584 I26.99 330688 Continue eliquis 5 mg bidMonitor for bleeding Acute deep venous thrombosis of left femoral vein 8097206421 03122 I82.412 60264782 As above Anemia 904129670 D64.9 9933962942 stable on recent labsContin ue pepcid and PPIHigher risk of bleed due to AC use.f/u outpatient PCP for labs Pleural effusion 1658055 8 J90 541191 s/p thoracente sis, 700 ml of fluid.Resp iratory status has been stable Upper gastrointestinal bleeding 41467400 K92.2 585354 Continue Pepcid 20 mg bid, Pantoprazo le 40 mg bid x 6 wksf/u GI (Dr. Weinberg) with concerns, follow up prn Asthenia 23332094 R53.1 67542 completed PT/OT for strengthen ing, balance, gait training, safety and function.C ontinue fall precaution s.Monitor for safety. Essential hypertension 55285713 I10 66745 BP readings at goalContin ue metoprolol and cardizem as above. Sinus tachycardia 271592 01 R00.0 3924 Continue metoprolol 25 mg bid, Diltiazem CD 300 mg qd Depressive disorder 3548 9007 F32.A 98658 Mood good todayConti nue escitalopr am 10 mg qd History of osteopenia 47 3408733 Z87.39 9791791 Continue Vit D 1000 U qd. Health Concerns Section Related Observation LastModified by Organization Detai ls LastModified Time None Recorded Concern Status LastModified by Organization Details LastModified Time None Recorded Advance Directives Directive None Recorded Payers Insurance Date Sequence Insurance Name Policy Number Policy Mays Covered Member ID Mays Member ID Guarantor Name 08/09/2024 1 [employer] (MEDICARE REPLACEMENT/A DVANTAGE - PPO) Chela Ran Quiroz [id number] Chela Quiroz Notes Date Note Type Note Provider Name and Address Organization Details Recorded Time 07/22/2024 text/html Cehla is a 73 yo female who is being seen today for acute rounding visit. s/p exp. lap, sigmoidectomy, ostomy creation, retroperitoneal abscess washout placement on 06/[address] Cristiano Staton. Patient report to have sustained a fall while working with physical therapy yesterday.Patient is visualized in room resting comfortably in bed. She is alert, talkative, in no distress. reports improvement in right lower abdominal pain after re starting Augmentin. History of bilateral knee replacements. During fall she sustained impact to bilateral knees causing small abrasion to R knee (covered) and swelling, warmth noted to L knee/tibia Patient updated on scheduled Infectious disease in [place] on Friday.Follow up with surgeon tomorrow Friday. A_Tonia-Randal is [address] [place] [address] [address], [place], [address], [facility] Intern 07/22/2024 12:27:41 07/27/2024 text/html Chela is a 73 yo female who is being seen today for acute rounding visit. s/p exp. lap, sigmoidectomy, ostomy creation, retroperitoneal abscess washout placement on 06/[address] Cristiano Staton. Patient follow up with Infectious disease in [place] on Friday (07/26). Follow up of Left retroperitoneal abscess adjacent to perforated diverticuli status post small bowl resection and colectomy. Currently in the plan of care as recommended by infectious disease is to;-Continue Augmentin until follow up after CT of abdomen and pelvis is completed.-Obtain CT of abdomen and pelivs with IV and oral contrast as ordered by infectious diseaseafter which re visit need for continued Augmentin.-Continue physical therapy as tolerated. No restrictions. Also had follow up with surgeon Friday (07/23). Findings include;Patient condition is much improved when compared to prior surgery follow up. Retention sutures removed in office today.-Continue to change ostomy every 3 days.-Follow up in 1 week. Patient was seen by PMR today with recs for L hip x-ray given severe pain. STAT x-ray ordered Patient seen lying in bed in [facility]. Ostomy appliance being changed for third time secondary to leakage. She is upset that the facility has still not obtained recommended ostomy supplies per recs. Reviewed recs with DON 1-2 weeks ago but unclear why still not ordered. Patient is upset and would like to speak to someone else about this. Shaft Tender notified of patient's complaints. This headline writer reached out to colorectal surgery by phone to see if they would send prescriptions to local supply store for ostomy supplies and they are willing to pay out of pocket to get them. Contact info provided for return call Joyce is [address], [address], [place], [address], [facility] Intern 07/27/2024 12:33:16 07/29/2024 text/html Chela is a 73 yo female who is being seen today for acute rounding visit. s/p exp. lap, sigmoidectomy, ostomy creation, retroperitoneal abscess washout placement on 06/[address] Cristiano Staton. Patient has had difficulty with ostomy appliances as supplied by facility. She reports initial bags were defective and the following appliances do not stay adhered causing leaking, skin irritation and patient dissatisfaction. Post operative patient was supplied with a specific Holister appliance that worked well. She has been unable to get this particular brand through the facility.Administrati on is aware the patients request for the Holister brand appliances.Colorectal surgery also requested to have script for appliance sent to medical supply.No return call from surgery regarding appliances.Nursing and wound care also advocate for Holister brand appliance for patient to maintain skin integrity and prevent infection risk in the presence of postoperative surgical wounds. Patient also sustained a fall while working with physical therapy. She was lowered to both knees then to L hip. There was initially swelling to Left knee and a small abrasion to R knee, both since resolved. A few days later patient was reported to have pain in LLQ/L hip. Patient has had pain in this area in the past related to diverticulosis and surgical changes. Upon assessment patient noted to be tender to palpation to light touch to skin and with palpation of L hip.STAT x ray orderedNo acute fracture noted. Patient visualized in wheelchair moving self around unit. She is updated on the work we have been doing to obtain her requested ostomy supplies. She expresses her dissatisfaction at the inability of facility to obtain requested supplies. Patient is reassured that upper management has been alerted and will be re informed of patients requests. Patient is otherwise well appearing, moving self in hallway with feet and upper arms using wheelchair. She speaks full clear sentences, breathing is easy non labored skin warm and dry. She denies other active medical issues. Jonny_ToniaRandal is [address] [facility], [address], [place], [address], [facility] [employer] [facility] 07/29/2024 12:16:34 08/03/2024 text/html Chela is a 73 yo female who is being seen today for acute rounding visit. s/p exp. lap, sigmoidectomy, ostomy creation, retroperitoneal abscess washout placement on 06/[address] Cristiano Staton. Patient had f/u colorectal surgery friday. Ostomy site improving. She has been emptying ostomy bag independently but staff have not been having her participate in routine bag changes. Her is also active in her care. This headline writer has not had return call from office for Rx for ostomy supplies. Will reach out again today. She continues to work with therapy. Walking 30-35ft and climbing 3 stairs. Patient seen sitting in chair in room in [facility]. She apologizes for misunderstanding. She offers no complaints. She is doing well. IrenejoeyOmari is [address] [facility], [address], [place], [address], [facility] - Intern 08/03/2024 14:21:20 08/05/2024 text/html Chela is a 73 yo female seen today for discharge summary visit She was admitted to [facility] presenting with abscess psoas muscle, diverticulitis, complicated by DVT/PE. Eval by surgery covered with broad spectrum Abx. Underwent exploratory lap and abscess washout required ostomy and drain placement. Required tx with 2 units pRBC. Complicated by DVT LLE started on AC started on heparin transitioned to eliquis. Further complicated by concern for upper GI bleed with eliquis then held. Eval by GI underwent EGD with clips placed at site of ulcer with AC restarted. Now on augmentin and followed by ID She discharged to [facility] for [facility]/PT/OTShe had low impact fall resulting in hip and knee pain. She had pain with ambulation, x-rays were obtained and unremarkable for acute fractureShe has been working with therapy, walking 30-25 ft and climbing 3 stairs, she has 4 stairs to reach threshold to her house.She completed initial recs for augmentin x 1 month. Repeat labs concerning for leukocytosis with left shift and acute onset RLQ pain and cramping. Augmentin was resumed with cessation of pain. Leukocytosis resolved on repeat labs. She had f/u ID who rec she continue Augmentin until f/u after repeat CT abdomen/pelvis, which she had done yesterday.She has had ostomy leakage resulting in skin excoriation and yeast infection. She was treated with 7 day course of fluconazole with good effect.She has been participating in emptying her ostomy bag. Her helps participate in her care.She has had hypokalemia intermittently on labs, likely from GI losses from ostomy. She has had K chlor replacement as needed. Patient is medically stable and okay for discharge home with meds and services Joyce is [address] [facility], [address], [place], [address], [facility] 08/05/2024 12:00:06 OBGyn Episode No OBEpisode recorded.
--- OUTSIDE RECORDS SUMMARY | 2025-01-18 14:41 | XMS_ITS | Encounter Summary ---
Author Organization [facility] Address [address] [facility] [address] [place] [address] Phone Care Team Providers Care Fitness And Wellness Instructor Name Role Phone Yvonne Ann PROGRAM COORDINATOR Primary Care Provider Encounter Details Date Type Department Care Team (Late st Contact Info) Description 07/11/2022 Ancillary Orders [facility], X-Ray - [address] [address] Trae Haynes, DO [address] [place] [address] [email or web address] Scoliosis, unspecified scoliosis type, unspecified spinal region [...] region documented in this encounter Care Teams Fitness And Wellness Instructor Relationship Specialty Start Date End Date Yvonne Ann NP PCP - General Nurse Practitioner 07/11/22 documented as of this encounter Additional Source Comments The information contained in this document represents components of the legal health record. It is not the complete legal health record.[facility]
--- OUTSIDE RECORDS SUMMARY | 2025-01-18 14:41 | XMS_ITS | Encounter Summary ---
Author Organization [facility] Address [address] [place] [address] Care Team Providers Care Chief Digital Media Officer Name Role Phone Pcp, No Primary Care Provider Unavailabl e Encounter Details Date Type Department Care Team (Late st Contact Info) Description 10/14/2024 Scanned Document [facility] Colorectal Surgery [address] [address] Nayla Soliman PA-C [address] [id number] Social History Tobacco Use Types Packs/Day Years Used Date Smoking Tobacco: Never Assessed [facility] Utilities Answer Date Recorded In the past [...] any time in the past 12 m [facility], were you homeless or living in [...] on filedocumented in this encounter Care Teams Chief Digital Media Officer Relationship Specialty Start Date End Date Pcp, No PCP - General 07/16/24 documented as of this encounter
--- OUTSIDE RECORDS SUMMARY | 2025-01-18 14:41 | XMS_ITS | Clinical Summary ---
Author Organization [facility] Address [address] [facility] [address] [place] [address] Phone Care Team Providers Care Digital Editor Name Role Phone Yvonne Ann CEMENT MASON Primary Care Provider Allergies Active Allergy Reactions [...] Maternal Grandfather cor onary artery disease ; ND AVM Mother Congenital arter iovenous malformation Colon [...] on patient's age to complete this topic IPV VACCINES Aged Out No longer eligi ble based on patient's age to complete this topic MENINGOCOCCAL VACCINES (ACWY) Aged Out No longer eligible based on patient's age to complete this topic MENINGOCOCCAL VACCINES (B) Aged Out N o longer eligible based on patient's age to complete this topic Medical Devices Not on file Insurance MEDICARE PART A & B [facility] MEDICARE REPLACEMENT MEDICARE PART A & B [employer] PPO MEDICARE REPLACEMENT MEDICARE PART A & B MEDICARE PART A & B MEDICARE PART A & B [employer] PPO MEDICARE REPLACEMENT MEDICARE PART A & B [employer] O MEDICARE REPLACEMENT [facility] PART A & [facility] MEDICARE PART A & B MEDICARE PART A & B [employer] PPO MEDICARE REPLACEMENT Care Teams Digital Editor Relationship Specialty Start Date End Date Yvonne Ann NP PCP - General Nurse Practitioner 07/11/22 Additional Source Comments The information contained in this document represents components of the legal health record. It is not the complete legal health record.[facility]
--- OUTSIDE RECORDS SUMMARY | 2025-01-18 14:41 | XMS_ITS | Encounter Summary ---
Author Organization [facility] Address [address] [place] [address] Care Team Providers Care Journeyman Electrician Pv Installer Name Role Phone Pcp, No Primary Care Provider Unavailabl e Encounter Details Date Type Department Care Team ([facility] st Contact Info) Description 11/24/2024 Scanned Document [facility] Colorectal Surgery [place] [address] [address] Cristiano Staton MD 85 [facility] [address] [place] [address] Social History Tobacco Use Types Packs/Day Years Used Date Smoking Tobacco: Never Assessed [facility] Utilities Answer Date Recorded In the past [...] in the past 12 m [facility], were you homeless or living in a [...] on filedocumented in this encounter Care Teams Journeyman Electrician Pv Installer Relationship Specialty Start Date End Date Pcp, No PCP - General 07/16/24 documented as of this encounter
--- OUTSIDE RECORDS SUMMARY | 2025-01-18 14:41 | XMS_ITS | Encounter Summary ---
Author Organization [facility] Address [address] [place] [address] Care Team Providers Care Vehicle Body Sander Name Role Phone Pcp, No Primary Care Provider Unavailabl e Encounter Details Date Type Department Care Team (Late st Contact Info) Description 12/28/2024 Scanned Document [facility] Colorectal Surgery [address] [address] Nayla Soliman PA-C [address] [address] Social History Tobacco Use Types Packs/Day Years Used Date Smoking Tobacco: Never Assessed [facility] Utilities Answer Date Recorded In [...] any time in the past 12 m [facility], were you homeless or living in a [facility] (including now)? No 06/14/2024 Comments No Sex [...] on filedocumented in this encounter Care Teams Vehicle Body Sander Relationship Specialty Start Date End Date Pcp, No PCP - General 07/16/24 documented as of this encounter
--- OUTSIDE RECORDS SUMMARY | 2025-01-18 14:41 | XMS_ITS | Encounter Summary ---
Author Organization [facility] Address [address] [facility] [address] [place] [address] Phone Care Team Providers Care Blending Tank Tender Helper Name Role Phone Yvonne Ann NP Primary Care Provider Encounter Details Date Type Department Care Team (Late st Contact Info) Description 08/08/2022 Procedure Pass [facility], [address] [address] Social History Tobacco Use Types Packs/Day Years [...] on filedocumented in this encounter Care Teams Blending Tank Tender Helper Relationship Specialty Start Date End Date Yvonne Ann NP PCP - General Nurse Practitioner 07/11/22 documented as of this encounter Additional Source Comments The information contained in this document represents components of the legal health record. It is not the complete legal health record.[facility]
--- OUTSIDE RECORDS SUMMARY | 2025-01-18 14:41 | XMS_ITS | Encounter Summary ---
Author Organization [facility] Address [address] [facility] [address] [place] [address] Phone Care Team Providers Care Quarter Trimmer Name Role Phone Yvonne Ann BLOOD BANK LABORATORY PROFESSIONAL Primary Care Provider Encounter Details Date Type Department Care Team ([facility] st Contact Info) Description 11/28/2022 Ancillary Orders [facility] Main [address] [place] [address] Trae Haynes, DO [address] [place] [address] [email or web address] Real-Time Social History Tobacco Use Types Packs/Day Years [...] on filedocumented in this encounter Care Teams Quarter Trimmer Relationship Specialty Start Date End Date Yvonne Ann NP PCP - General Nurse Practitioner 07/11/22 documented as of this encounter Additional Source Comments The information contained in this document represents components of the legal health record. It is not the complete legal health record.[facility]
== END 2025-01-18 14:12 | disposition home or self-care (01) ==
LOC: HO.HMCFM 12:57
PROVIDERS: PCP Nurse Practitioner Family; Visit Provider Nurse Practitioner Family
DX: K68.12 Psoas muscle abscess (principal); Z09 Encounter for follow-up examination after completed treatment for conditions other than malignant neoplasm; I10 Essential (primary) hypertension; E78.5 Hyperlipidemia, unspecified

== ENCOUNTER → 2025-01-21 12:37 | Outpatient (REF) | payer OTHER, SELFPAY ==
--- NOTE | 2025-01-21 12:41 | CA_ITS ---
Transthoracic Echocardiogram Patient (Last, First, Middle): Chela Garza, Gender: Female Date of : 1950 Age: 74 Procedure Date: 01/21/2025 Procedure Type: Transthoracic Echocardiogram Location: OP Height: 154.94 cm Weight: 83.46 kg BSA: 1.82 m2 Heart Rate: 109 bpm BP: 126 / 68 mmHg Forestry Technical Officer: SAM Referring MD: Candi Rock PHARMACOLOGY PROFESSOR-[employer] Supervisor: Alfredo Newton MD Symptoms: R93.1 - Abnormal findings on diagnostic imaging of heart and coronary ci... Study Quality: Adequate w contrast ECG Rhythm: Tachycardia Conclusions: - 1. Hyperdynamic LV EF of greater than 70% with impaired relaxation filling pattern 2. Mild calcific aortic and mitral valve changes noted without any abnormalities of cardiac valvular Dopplers 3. Normal RV systolic pressure 4. No gross pericardial effusion Findings Procedure Information Contrast agent, definity, is being given per protocol without apparent complications. Left Ventricle The left ventricle was not well visualized. Normal left ventricular cavity size. There is normal left ventricular wall thickness. The left ventricular systolic function is hyperdynamic. The visually estimated ejection fraction is >70%. Spectral Doppler is indicative of an impaired relaxation filling pattern. Right Ventricle Normal right ventricular cavity size and systolic function. Atria The left atrium is normal in size. There is no evidence of interatrial shunt. Aortic Valve There is mild calcification of the aortic valve. There is no aortic valve stenosis. There is no aortic valve regurgitation. Mitral Valve There is mild anterior and posterior mitral leaflet thickening. There is mild mitral annular calcification. There is trace mitral valve regurgitation. There is no mitral valve stenosis. Pulmonic Valve The pulmonic valve was not well visualized. Tricuspid Valve Likely normal tricuspid valve structure and function. There is trace tricuspid valve regurgitation. The right ventricular systolic pressure is normal. The right ventricular systolic pressure is 23 mmHg. Normal right atrial pressure. There is no evidence of pulmonary hypertension. Great Vessels All visible segments of the aorta are normal in size. The pulmonary artery was not well visualized. There is no dilatation of the ascending aorta measuring 3.10 cm. Venous The inferior vena cava is normal in size and collapses greater than 50% with inspiration. Pericardium/Pleural There is no evidence of pericardial effusion. Prior Study Comparison No significant change compared to prior study dated: 07/24/2022. Measurements 2D Linear Measurements IVSd: 0.78 0.6-0.9/0.6-1.0 cm LVIDd: 3.88 3.9-5.3/4.2-5.9 cm LVIDd Index: 2.13 2.4-3.2/2.2-3.1 cm/m2 LVIDs: 3.08 2.0-3.6 cm LVPWd: 0.70 0.7-1.1 cm LA Diam: 2.70 2.7-3.8/3.0-4.0 cm LAIDs Index: 1.48 1.5-2.3 cm/m2 LV Mass: 99.40 67-162/88-224 g LV Mass Index: 54.62 43-95/49-115 g/m2 LVOT Diam: 1.90 3.0+(-)1.3 cm 2D Systolic Function EF 4C: 75.10 >55% EF 2C: 75.00 >55% EF BiP: 74.00 >55% Mitral Valve MV Pk E: 0.92 MV PK A: 1.31 MV Decel Time: 109.00 E/A: 0.70 E'Lateral: 6.09 E'Medial: 4.46 E/E' Med: 20.60 E/E' Lat: 15.10 PHT: 32.00 MVA PHT: 6.88 Decel Cole: 8.44 Aortic Valve AoV Pk Troy: 1.33 AoV Pk Grad: 7.00 BREE: 1.89 LVOT LVOT Pk Troy: 0.93 LVOT Mn Troy: 0.60 LVOT VTI: 0.16 LVOT Pk Grad: 3.00 LVOT Mn Grad: 2.00 LVOT Diam: 1.90 LVOT Area: 2.84 Diastolic Function MV Pk E: 0.92 MV Pk A: 1.31 E/A: 0.70 E'Medial: 4.46 E/E' Med: 20.60 E' Laterial: 6.09 E/E' Lat: 15.10 Right Ventricle TVS' Troy: 11.60 Tricuspid Valve TR Pk Troy: 2.22 TR Pk Grad: 20.00 RA Press: 3.00 RVSP: 23.00 Great Vessels Aorta Sinus of Valsalva: 3.30 2.0-3.5 cm Ao Asc: 3.10 2.1-3.4 cm Ao Arch: 2.60 Pulmonary Valve PV Pk Troy: 0.85 Peak PV Grad: 3.00 Updated in Other Vendor System with Status of Final Alfredo Newton MD electronically signed on 01/21/2025 5:53:49 PM with status of Final
== END ==
LOC: HO.CARD 12:37
PROVIDERS: PCP Nurse Practitioner Family; Visit Provider Nurse Practitioner Family
DX: R93.1 Abnormal findings on diagnostic imaging of heart and coronary circulation (principal)
CPT/HCPCS: 93306; Q9957

== ENCOUNTER → 2025-01-21 12:41 | Outpatient (BNV) | payer OTHER, SELFPAY | PROVIDERS: PCP Nurse Practitioner Family; Visit Provider Internal Medicine Cardiovascular Disease | DX: I35.8 Other nonrheumatic aortic valve disorders (principal); I34.81 Nonrheumatic mitral (valve) annulus calcification | CPT/HCPCS: 93306 ==

== ENCOUNTER 2025-02-10 10:06 | Outpatient (REF) | payer OTHER, SELFPAY ==
--- OUTSIDE RECORDS SUMMARY | 2024-05-10 09:00 | XMS_ITS ---
Author Organization [facility] Address [address] [place] [address] Care Team Providers Care Knot Cutter Name Role Phone Mónica LAU, Ana Primary Care Provider Unavail Manasa Wick Unavailable [phone] Aziza Maria [phone] Encounters Encounter Location Date Provider Diagnosis [address] [address] 05/10/2024 Aziza Maria Plan Of Treatment Next Appt Details Provider Name:Manasa jewell, 03/16/2025 09:00:00 AM, [address] [place], [address], Progress Notes * Sebastian BEJARANOOB:[birth year]07 (74 yo F)Acc No.[id number]:05/10/2024 Progress Notes Patient: Chela WEST Provider: Aiden Maria DPM :1950 A ge:73 Y S ex:Female Date:05/10/2024 Address:[address] [place] [address] [address] , [place], [place] Pcp:Ana Sales NP Subjective: * Chief Complaints: * * Medical History: Objective: * Vitals: Assessment: Plan: * Treatment: * Images: * The named appointment provid er may or may not be the originator of this progress note, and it is not deemed complete until electronically signed by the appointment provider. Sign off status: Pending * Provider: Aiden Maria DPM Date: 0 05/10/2024 Generated for Tamiko Glez/Karen on: 04/13/2024 11:59 AM EST
[2025-02-10 11:27] LABS: Anion Gap 17 (12-20); Blood Urea Nitrogen 9 mg/dL (9-16); Calcium 9.5 mg/dL (8.4-10.2); Carbon Dioxide 27 mmol/L (22-29); Chloride 101 mmol/L (96-108); Estimated Glomerular Filt Rate > 60; Magnesium 1.8 mg/dL (1.6-2.6); Potassium 4.7 mmol/L (3.3-5.1); Sodium 140 mmol/L (135-145)
--- OUTSIDE RECORDS SUMMARY | 2025-02-10 12:00 | XMS_ITS | Encounter Summary ---
Author Organization [facility] Address [address] [facility] [address] [place] [address] Phone Care Team Providers Care Selling Specialist Name Role Phone Yvonne Ann MOTEL FRONT DESK ATTENDANT Primary Care Provider Encounter Details Date Type Department Care Team (Late st Contact Info) Description 07/11/2022 Ancillary Orders [facility], X-Ray - [address] [address] Trae Haynes, DO [address] [place] [address] [email or web address] Scoliosis, unspecified scoliosis type, unspecified spinal region [...] region documented in this encounter Care Teams Selling Specialist Relationship Specialty Start Date End Date Yvonne Ann NP PCP - General Nurse Practitioner 07/11/22 documented as of this encounter Additional Source Comments The information contained in this document represents components of the legal health record. It is not the complete legal health record.[facility]
--- OUTSIDE RECORDS SUMMARY | 2025-02-10 12:00 | XMS_ITS | Encounter Summary ---
Author Organization [facility] Address [address] [facility] [address] [place] [address] Phone Care Team Providers Care Diesel Service Apprentice Name Role Phone Yvonne Ann NP Primary Care Provider Encounter Details Date Type Department Care Team (Late st Contact Info) Description 08/08/2022 Procedure Pass [facility], [address] [address] Social History Tobacco Use Types Packs/Day Years [...] on filedocumented in this encounter Care Teams Diesel Service Apprentice Relationship Specialty Start Date End Date Yvonne Ann NP PCP - General Nurse Practitioner 07/11/22 documented as of this encounter Additional Source Comments The information contained in this document represents components of the legal health record. It is not the complete legal health record.[facility]
--- OUTSIDE RECORDS SUMMARY | 2025-02-10 12:00 | XMS_ITS | Encounter Summary ---
Author Organization [facility] Address [address] [place] [address] Care Team Providers Care Spiritual Minister Name Role Phone Pcp, No Primary Care Provider Unavailabl e Encounter Details Date Type Department Care Team (Late st Contact Info) Description 11/11/2024 Scanned Document [facility] Colorectal Surgery [address] [address] Nayla Soliman PA-C [address] [id number] Social History Tobacco Use Types Packs/Day Years Used Date Smoking Tobacco: Never Assessed [facility] Utilities Answer Date Recorded In the past [...] time in the past 12 m [facility], were you homeless or living in a [...] Care Team (Late st Contact Info) Description 04/01/2025 11:20 AM EST Procedure visit [facility] Colorectal Surgery [address] [phone] Nayla Soliman PA-C [address] [place] [address] 04/01/2025 11:20 AM EST Procedure visit [facility] Colorectal Surgery [address] [phone] documented as of this encounter Visit Diagnoses Not on filedocumented in this encounter Care Teams Spiritual Minister Relationship Specialty Start Date End Date Pcp, No PCP - General 07/16/24 documented as of this encounter
--- OUTSIDE RECORDS SUMMARY | 2025-02-10 12:00 | XMS_ITS | Clinical Summary ---
Author Organization [facility] Address [address] [place] [address] Care Team Providers Care Physician Coding Specialist Name Role Phone Pcp, No Primary [...] Active Additional Information Patient not taking.Reported on 01/19/2025 acetaminophen (TYLENOL) 325 MG tabletIndicatio ns:Diverticulit is Take 3 tablets (975 mg total) by mouth 4 times daily (every 6 hours) as needed for mild pain or headaches. Active famotidine (PEPCID) 20 MG tabletIndicatio ns:Diverticulit is Take 1 tablet (20 mg total) by mouth 2 (two) times a day. Active Additional Information Patient not taking.Reported on 01/19/2025 multivitamin with minerals Tab tabletIndicatio ns:Diverticulit is Take 1 tablet by mouth daily. Active Additional Information Patient not taking.Reported on 01/19/2025 nystatin (MYCOSTATIN) 806692 UNIT/GM creamIndication s:Diverticuliti s Apply topically 2 (two) times a day. Active Additional Information Patient not taking.Reported on 01/19/2025 PANTOprazole (PROTONIX) 40 MG EC tabletIndicatio ns:Diverticulit is Take 1 tablet (40 mg total) by mouth 2 times a day. Active Additional Information Patient not taking.Reported on 01/19/2025 diltiazem (CARDIZEM) 60 MG tabletIndicatio ns:Diverticulit is Take 1 tablet (60 mg total) by mouth 4 (four) times a day before meals and nightly. 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) 01/19/2025 11:20 AM EST Procedure visit [facility] Colorectal Surgery Laie [address] [facility] [address] [place] [phone] [place], Nayla, PA-C 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); Psoas abscess (HCC); Diverticulitis 12/28/2024 Scanned Document [facility] Colorectal Surgery [address] [place] [address] Nayla Soliman PA-C 12/24/2024 10:10 AM EDT Office Visit [facility] Colorectal Surgery [address] [place] [address] Cristiano Staton MD 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) 12/24/2024 10:00 AM EDT Procedure visit [facility] Colorectal Surgery [address] [place] [address] Britany Jimenez RN 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) 12/24/2024 10:00 AM EDT Procedure visit [facility] Colorectal Surgery [address] [place] [address] Nayla Soliman PA-C 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); Psoas abscess (HCC); Diverticulitis 11/24/2024 Scanned Document [facility] Colorectal Surgery [address] [place] [address] Cristiano Staton MD 11/19/2024 11:20 AM EDT Clinical Support [facility] Colorectal Surgery [address] [place] [address] Britany Jimenez RN 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) 11/19/2024 11:20 AM EDT Procedure visit [facility] Colorectal Surgery [address] [place] [address] Nayla Soliman PA-C 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 No 06/14/2024 Comments No Sex and Gender Information Value Date Recorded Sex Assigned at Female 06/11/2024 7:46 PM EDT Legal Sex Female 4:36 PM EDT Gender Identity Female 06/11/2024 7:46 PM EDT Sexual Orientation Heterosexual (straight) 06/11 7:46 PM EDT Last Filed Vital Signs Vital Sign Reading Time Taken Comments Blood Pressure 142/82 01/19/2025 11:46 AM EST Pulse 121 01/19/2025 11:46 AM EST Temperature 36.1 C (97 F) 01/19/2025 11:46 AM EST Respiratory Rate 16 01/19/2025 11:46 AM EST Oxygen Saturation 97% 01/19/2025 11:46 AM EST Inhaled Oxygen Concentration - - Weight 83.6 kg (184 lb 4.8 oz) 01/19/2025 11:46 AM EST Height 154.9 cm (5' 1 ) 01/19/2025 11:46 AM EST Body Mass Index 34.82 01/19/2025 11:46 AM EST Plan of Treatment Upcoming Encounters Date Type Department Care Team (Late st Contact Info) Description 04/01/2025 11:20 AM EST Procedure visit [facility] Colorectal Surgery [address] [phone] Nayla Soliman PA-C [address] [address] 04/01/2025 11:20 AM EST Procedure visit [facility] Colorectal Surgery [address] [address] Health Maintenance Due Date Last Done Comments Hepatitis C Virus Screening 1950 DTaP/Tdap/Td Vaccines (1 - Tdap) 1968 Pneumococcal Vaccines 50+ (1 of 1 - PCV) 09/21/1999 Zoster (Shingles) Vaccine (1 of 2) 09/21/1999 DXA Bone Density (Females,Ages 65 and older) 04/02/2023 04/02/2021 Mammogram 04/02/2023 04/02/2021, 03/01/2019 RSV Vaccine 50 years and older and Patients (1 - 1-dose 75+ series) 2024 COVID-19 Vaccine ( season) 2024 06/02/2020, 05/12/2020 Colonoscopy 11/24/2034 11/24/2024, [...] (CC) (11/24/2024 2:17 PM EDT) External Provider MD AMB ORDERABLE PERFORMABLE F inal Result * COLONOSCOPY (CC) (11/24/2024 2:14 PM EDT) External Provider AMB ORDERABLE PERFORMABLE F inal Result * COLONOSCOPY (CC) (11/24/2024 2:09 PM EDT) us Maral Oswald MD AMB ORDERABLE PERFORMABLE Final Result from Last 3 Months Insurance [employer] [facility] MEDICARE [employer] [facility]IC[facility] Advance Directives Documents on File Type Date Recorded Patient Network Desktop Support Specialist Expl anation Advance Directive-Scan 08/06/2024 CT AB DOMEN AND PELVIS W/ CONTRAST RESULTS TO ID Advance Directive-Scan 07/26/2024 ID AF TER VISIT SUMMARY/LABS * Full Code (Latest Code Status on File) Date Activated Date Inactivated Comments 06/12/2024 1:16 AM Question Answer Comments Decision Thoroughly Discussed with: Patient Care Teams Physician Coding Specialist Relationship Specialty Start Date End Date Pcp, No PCP - General 07/16/24
--- OUTSIDE RECORDS SUMMARY | 2025-02-10 12:00 | XMS_ITS | Encounter Summary ---
Author Organization [facility] Address [address] [place] [address] Care Team Providers Care Assembler [employer]pillar Spider Name Role Phone Pcp, No Primary Care Provider Unavailabl e Encounter Details Date Type Department Care Team (Late st Contact Info) Description 12/28/2024 Scanned Document [facility] Colorectal Surgery [address] [address] Nayla Soliman PA-C [address] [address] Social History Tobacco Use Types Packs/Day Years [...] you homeless or living in a senior care (including now)? No 06/14/2024 Comments No Sex [...] Description 04/01/2025 11:20 AM EST Procedure visit [facility] Colorectal Surgery [address] [phone] Nayla Soliman PA-C [address] [place] [address] 04/01/2025 11:20 AM EST Procedure visit [facility] Colorectal Surgery [address] [phone] documented as of this encounter Visit Diagnoses Not on filedocumented in this encounter Care Teams Assembler [employer]pillar Spider Relationship Specialty Start Date End Date Pcp, No PCP - General 07/16/24 documented as of this encounter
--- OUTSIDE RECORDS SUMMARY | 2025-02-10 12:00 | XMS_ITS | Encounter Summary ---
Author Organization [facility] Address [address] [address] Phone Care Team Providers Care Aircraft Inspection Record Clerk Name Role Phone Yvonne Ann NP Primary Care Provider Reason for Referral * MRI/CAT Scan - Closed Specialty Diagnoses / Procedures Referred By Contac t Referred To Contact Radiology Diagnoses Radiculopathy, thoracolumbar region Procedures MRI Lumbar Spine CHG MRI, LUMBAR SPINE CHG MRI, LUMBAR SPINE COMBTrae Rose DO Phone: tel: fax: mailto:[email or web address] Referral ID Status Reason Start Date Expiration Date Visits Re quested Visits Authorized [id number] Closed 09/07/2022 10/11/2022 1 1 * MRI/CAT Scan - Closed Specialty Diagnoses / Procedures Referred By Contac t Referred To Contact Radiology Diagnoses Radiculopathy, thoracolumbar region Procedures MRI Thoracic Spine CHG MRI, DORSAL SPINE CHG MRI, DORSAL SPINE CONTRAST CHG MRI, DORSAL SPINE Trae Stout DO Phone: tel: fax: mailto:[email or web address] Referral ID Status Reason Start Date Expiration Date Visits Re quested Visits Authorized [id number] Closed 09/07/2022 10/07/2022 1 1 Encounter Details Date Type Department Care Team (Latest Contact Info) Description 08/08/2022 Transcribe Orders Virtual Department [address] [place] [address] Trae Haynes, [address] [place] [address] [email or web address] Radiculopathy, thoracolumbar region (Primary Dx) Social History [...] suspicious marrow signal abnormalities. 13 mm T1, [id number] lesion within the body of T10 consistent [...] suspicious marrow signal abnormalities. 13 mm T1, [id number] lesion within the body of T10 consistent [...] region documented in this encounter Care Teams Aircraft Inspection Record Clerk Relationship Specialty Start Date End Date Yvonne Ann NP PCP - General Nurse Practitioner 07/11/22 documented as of this encounter Additional Source Comments The information contained in this document represents components of the legal health record. It is not the complete legal health record.[facility]
--- OUTSIDE RECORDS SUMMARY | 2025-02-10 12:00 | XMS_ITS | Patient Health Record ---
Author Organization [facility] Address [address] [place] [address] Care Team Providers Care Mining Professionals Name Role Phone Mónica LAU, Ana Primary Care Provider Unavail able Manasa Santos Unavailable [phone] Aziza Maria Unavailable [phone] Allergies Allergen (clinical drug ingredient) Drug/Non Drug [...] Problem Acquired hammer toe of right foot ([id number]) Other hammer toe(s) (acquired), right foot (M20.41) Active confirmed Problem Localized, primary osteoarthritis of the ankle and/or foot (447177652) Arthritis of joint of lesser toe, right (M19.071) Active confirmed Vital Signs Blood pressure diastolic 65 mm Hg 12/02/2024 Height 5ft 1in in 12/02/2024 Blood pressure systolic 126 mm Hg 12/02/2024 Weight 180 lbs 12/02/2024 BMI 34.01 kg/m2 12/02/2024 Encounters Encounter Location Date Provider Diagnosis [facility] [address] [place] [address] 12/02/2024 Manasa Lastaker Pain in right toe(s) M79.674 ; Other hammer toe(s) (acquired), right foot M20.41 ; Arthritis of joint of lesser toe, right M19.071 and Subluxation of metatarsophalangeal joint of toe, initial encounter S93.149A [facility] [address] [address] 05/03/2024 Aziza Maria [facility] [address] [place] [address] 11/25/2024 Manasa Santos Assessments Encounter Date Diagnosis [...] Name:Manasa Alonso best, 03/16/2025 09:00:00 AM, [address] [place], [address], Insurance Providers Payer Name Payer Address Payer Phone Subscriber Number Group Number Insured Name Patient Relationship to Insured Coverage Start Date Coverage End Date [employer] Claims [address] [address] [place] [id number] Wilmer dash Chela Self - patient is [...]
--- OUTSIDE RECORDS SUMMARY | 2025-02-10 12:00 | XMS_ITS | Clinical Summary ---
Author Organization [facility] Address [address] [facility] [address] [place] [address] Phone Care Team Providers Care Supervisor Blood Donor Recruiters Name Role Phone Yvonne Ann SHIPFITTERS SUPERVISOR Primary Care Provider Allergies Active Allergy [...] Maternal Grandfather cor onary artery disease ; [place] A[place] Mother Congenital arter iovenous malformation Colon [...] Subscriber Plan / Payer (Ef fective 2014-Present) Name:Giltner RichieChela Member ID:[id number] Relation to Subscriber:Self Name:Ran Chela Quiroz Subscriber ID:[id number] Payer ID:[id number] Group ID:Not on file Type:Medicare Address: [facility] [employer] [facility] [address] [place] [phone] [facility] MEDICARE REPLACEMENT MEDICARE PART A & B HUMANA PPO MEDICARE REPLACEMENT MEDICARE PART A & B MEDICARE PART A & B Member Subscriber Plan / Payer (Ef fective 2014-Present) Name:Chela Joseph Member ID:[id number] Relation to Subscriber:Self Name:Chela Joseph Subscriber ID:[id number] Payer ID:[id number] Group ID:Not on file Type:Medicare Address: [address] [place] [id number] MEDICARE PART A & B [employer]UM[employer] PPO MEDICARE REPLACEMENT MEDICARE PART A & B HU[employer]NA PPO MEDICARE REPLACEMENT MEDICARE PART A & B [employer]UMAN PPO MEDICARE REPLACEMENT MEDICARE PART A & B MEDICARE PART A & B [employer] PPO MEDICARE REPLACEMENT Care Teams Supervisor Blood Donor Recruiters Relationship Specialty Start Date End Date Yvonne Ann NP PCP - General Nurse Practitioner 07/11/22 Additional Source Comments The information contained in this document represents components of the legal health record. It is not the complete legal health record.[facility]
--- OUTSIDE RECORDS SUMMARY | 2025-02-10 12:00 | XMS_ITS | Encounter Summary ---
Author Organization [facility] Address [address] [place] [address] Care Team Providers Care Visiting Nurse Name Role Phone Pcp, No Primary Care Provider Unavailabl e Encounter Details Date Type Department Care Team ([facility] st Contact Info) Description 11/24/2024 Scanned Document [facility] Colorectal Surgery [place] [address] [address] Cristiano Staton MD 85 [facility] [address] [place] [address] Social History Tobacco Use Types Packs/Day Years Used Date Smoking Tobacco: Never Assessed [facility] Utilities Answer Date Recorded In [...] any time in the past 12 m [facility], were you homeless or living in a skilled nursing (including now)? No 06/14/2024 Comments No Sex [...] Description 04/01/2025 11:20 AM EST Procedure visit [facility] Colorectal Surgery [address] [phone] Nayla Soliman PA-C [address] [place] [address] 04/01/2025 11:20 AM EST Procedure visit [facility] Colorectal Surgery [address] [phone] documented as of this encounter Visit Diagnoses Not on filedocumented in this encounter Care Teams Visiting Nurse Relationship Specialty Start Date End Date Pcp, No PCP - General 07/16/24 documented as of this encounter
--- OUTSIDE RECORDS SUMMARY | 2025-02-10 12:01 | XMS_ITS | Encounter Summary ---
Author Organization [facility] Address [address] [facility] [address] [place] [address] Phone Care Team Providers Care Bisque Placer Name Role Phone Yvonne Ann BAGGAGE INSPECTOR Primary Care Provider Encounter Details Date Type Department Care Team ([facility] st Contact Info) Description 11/28/2022 Ancillary Orders [facility] Main [address] [place] [address] Trae Haynes, DO [address] [place] [address] [email or web address] Social History Tobacco Use Types Packs/Day Years [...] on filedocumented in this encounter Care Teams Bisque Placer Relationship Specialty Start Date End Date Yvonne Ann NP PCP - General Nurse Practitioner 07/11/22 documented as of this encounter Additional Source Comments The information contained in this document represents components of the legal health record. It is not the complete legal health record.[facility]
--- OUTSIDE RECORDS SUMMARY | 2025-02-10 12:01 | XMS_ITS | Encounter Summary ---
Author Organization [facility] Address [address] [facility] [address] [place] [phone] Phone Care Team Providers Care Cans Vacuum Tester Name Role Phone Yvonne Ann NP Primary Care Provider Encounter Details Date Type Department Care Team (Late st Contact Info) Description 08/08/2022 Procedure Pass [facility], [address] [id number] Social History Tobacco Use Types Packs/Day Years [...] on filedocumented in this encounter Care Teams Cans Vacuum Tester Relationship Specialty Start Date End Date Yvonne Ann NP PCP - General Nurse Practitioner 07/11/22 documented as of this encounter Additional Source Comments The information contained in this document represents components of the legal health record. It is not the complete legal health record.[facility]
--- OUTSIDE RECORDS SUMMARY | 2025-02-10 12:01 | XMS_ITS | Encounter Summary ---
Author Organization [facility] Address [address] [facility] [address] [place] [phone] Phone Care Team Providers Care Ship'S Electronic Warfare Officer Name Role Phone Yvonne Ann HOP STRAINER Primary Care Provider Encounter Details Date Type Department Care Team (Late st Contact Info) Description 11/28/2022 Ancillary Orders [facility], X-Ray - [address] [address] Trae Haynes, DO [address] [place] [address] [email or web address] Pain in right hip Social History [...] hip documented in this encounter Care Teams Ship'S Electronic Warfare Officer Relationship Specialty Start Date End Date Yvonne Ann NP PCP - General Nurse Practitioner 07/11/22 documented as of this encounter Additional Source Comments The information contained in this document represents components of the legal health record. It is not the complete legal health record.[facility]
--- OUTSIDE RECORDS SUMMARY | 2025-02-10 12:01 | XMS_ITS | Encounter Summary ---
Author Organization [facility] Address [address] [place] [address] Care Team Providers Care Concrete Block Mason Name Role Phone Pcp, No Primary Care Provider Unavailabl e Encounter Details Date Type Department Care Team (Late st Contact Info) Description 10/14/2024 Scanned Document [facility] Colorectal Surgery [address] [phone] Nayla Soliman PA-C [address] [phone] Social History Tobacco Use Types Packs/Day Years Used Date Smoking Tobacco: Never Assessed [facility] Utilities Answer Date Recorded In the [...] any time in the past 12 m [facility], were you homeless or living [...] Description 04/01/2025 11:20 AM EST Procedure visit [facility] Colorectal Surgery [address] [phone] Nayla Soliman PA-C [address] [place] [phone] 04/01/2025 11:20 AM EST Procedure visit [facility] Colorectal Surgery [address] [phone] documented as of this encounter Visit Diagnoses Not on filedocumented in this encounter Care Teams Concrete Block Mason Relationship Specialty Start Date End Date Pcp, No PCP - General 07/16/24 documented as of this encounter
== END 2025-02-10 10:07 | disposition home or self-care (01) ==
LOC: HO.LAB 10:06
PROVIDERS: PCP Internal Medicine; Visit Provider Internal Medicine Nephrology
DX: I10 Essential (primary) hypertension (principal)
CPT/HCPCS: 36415; 80051; 82310; 82565; 83735; 84100; 84520